=== PATIENT | female | born 1975 | race Caucasian/White ===

== ENCOUNTER 2022-08-20 15:15 | Outpatient (OUT) | payer OTHER, MEDICARE, SELFPAY ==
[2022-08-20 15:50] LABS: Bilirubin Urine NEGATIVE (NEGATIVE); Blood Urine NEGATIVE (NEGATIVE); Clarity Urine CLEAR (CLEAR); Color Urine LT. YELLOW (YELLOW); Glucose Urine UA 250 mg/dL (NEGATIVE); Ketones Urine NEGATIVE (NEGATIVE); Leukocyte Esterase Urine LARGE (NEGATIVE); Nitrite Urine POSITIVE (NEGATIVE); Protein Urine 100 mg/dL (NEG/TRACE); Urobilinogen Urine 0.2 EU/dL (0.2-1.0); pH Urine >=9.0 (5.0-9.0)
[2022-08-20 15:57] LABS: Bacteria Urine MODERATE #/HPF (NONE SEEN); Mucus Urine TRACE (NONE SEEN)
[2022-08-20 15:58] LABS: Cast Seen? NONE SEEN #/LPF (NONE SEEN); Crystals Seen? None Seen #/HPF (None Seen); Squamous Epithelial Cell Urine RARE #/LPF (NONE/RARE); Urine Culture Indicated ALREADY ORDERED
== END 2022-08-20 15:16 | disposition home or self-care (01) ==
LOC: LAB 15:20
PROVIDERS: PCP Family Medicine; Visit Provider Family Medicine
DX: N39.0 Urinary tract infection, site not specified (principal)
CPT/HCPCS: 81001; 87070; 87086; 87150; 87186

== ENCOUNTER 2022-11-07 11:53 | Outpatient (REF) | payer OTHER, MEDICARE, SELFPAY | END 2022-11-07 11:54 | disposition home or self-care (01) | LOC: LAB 11:53 | PROVIDERS: PCP Family Medicine; Visit Provider Family Medicine | DX: M75.00 Adhesive capsulitis of unspecified shoulder (principal) | CPT/HCPCS: 87070; 87150; 87186 ==

== ENCOUNTER 2022-12-10 11:08 | Outpatient (OUT) | payer OTHER, MEDICARE, SELFPAY ==
--- NOTE | 2022-12-10 11:13 | XR_ITS ---
[address] [address] Patient Name: JESSICA CRISTINA MRN: [id number] date: 1975 Sex: F Assigned Patient Location: [facility] Current Patient Location: [facility] Accession/Order Number: [id number] Exam Date: 12/10/2022 11:25 Report Date: 12/10/2022 15:04 At the request of: DINORAH GRUBBS Procedure: XR shoulder RT min 2V EXAM: XR shoulder RT min 2V HISTORY: Acute Pain Right Shoulder M25.511 COMPARISON: None. TECHNIQUE: 3 views FINDINGS: No acute fracture or dislocation. Mild degenerative changes of the acromioclavicular and glenohumeral joints. Unremarkable soft tissues. XR/XR shoulder RT min 2V IMPRESSION: Degenerative changes as above. Electronically authenticated by: MARY GODOY Date: 12/10/2022 15:04
== END 2022-12-10 11:09 | disposition home or self-care (01) ==
LOC: RAD 11:08
PROVIDERS: PCP Family Medicine; Visit Provider Orthopaedic Surgery
DX: M25.511 Pain in right shoulder (principal)
CPT/HCPCS: 73030

== ENCOUNTER 2023-02-10 13:05 | Emergency (ER) | payer OTHER, MEDICARE, SELFPAY ==
[2023-02-10] VITALS (15 sets, daily range): BP systolic 134–141; BP diastolic 89–97; PULSE 82–94; RESP 6–20; TEMP 36.6; O2SAT 96–99; BMI 33.3
--- OUTSIDE RECORDS SUMMARY | 2023-02-10 13:17 | XMS_ITS | CCD ---
Author Name Unknown Address [address] [facility] [facility] [address] [place] [address] Organization [facility] Care Team Providers Care Physician Vice President Name Role Phone Francesco Quinteros MD Primary Care Provider Yimi Nina Unavailable [phone] Bella Fraser PA-C Unavailable Unavailable Francesco Quinteros Primary Care Physician Charo Roblero Unavailable Unavailable Francesco Quinteros MD Primary Care Provider [phone] Yimi Nina Unavailable [phone] Bella Fraser PA-C Unavailable Unavailable Francesco Quinteros MD Primary Care Provider Yimi Nina Unavailable [phone] Bella Fraser PA-C Unavailable Unavailable Francesco Quinteros MD Primary Care Provider Yimi Nina Unavailable Bella Fraser PA-C Unavailable Unavailable MD Francesco Quinteros Primary Care Provider MD Yaakov Greenwood Attending Provider LILIA NIELSEN Admitting Unavailable LILIA NIELSEN Consulting Unavailable LILIA NIELSEN Attending Unavailable DR FRANCESCO LORENZANA Primary Care Unavailable ALDAIR Amaya, DR MAYA Admitting Unavailable ALDAIR Amaya, DR MAYA Primary Care Unavailable ALDAIR Amaya, DR MAYA Consulting Unavailable ALDAIR Amaya, DR MAYA Attending Unavailable TRAMAINE, DR DINORAH Tamayo Consulting Unavailable DIAB ., YUDI Consulting Unavailable DIAB ., YUDI Attending Unavailable ALDAIR Amaya, DR MAYA Primary Care Unavailable DIAB ., YUDI Admitting Unavailable LILIA NIELSEN Admitting Unavailable LILIA NIELSEN Consulting Unavailable LILIA NIELSEN Attending Unavailable ALDAIR ., DR MAYA Primary Care Unavailable HoyFrancesco M Primary Care Unavailable Cook, Yaakov P Attending Unavailable Cook, Yaakov P Admitting Unavailable Cook, Yaakov P Attending Unavailable Cook, Yaakov P Admitting Unavailable HoFrancesco rubio M Primary Care Unavailable Bella Fraser PA-C Unavailable FRANCESCO QUINTEROS M Primary Care Unavailable ONTANEDA, JOSE Referring Unavailable ONTANEDA JOSE Attending Unavailable HOY, FRANCESCO M Primary Care Unavailable BETHOUX, WAY Referring Unavailable BETHOUX, WAY Attending Unavailable HOFRANCESCO Rubio M Primary Care Unavailable BETHOUX, WAY Referring Unavailable BETHOUX, WAY Attending Unavailable HOFRANCESCO Rubio M Primary Care Unavailable LEDYARDLISADESIREE R Referring Unavailable BETHOUX, HAILE Attending Unavailable JACOBFRANCESCO Rubio M Primary Care Unavailable LEDDESIREE DIEHL R Referring Unavailable MARILIA SIU Attending Unavailable [place] gu[place] Attending Unavailable COOK, Yaakov P Attending Unavailable COOK, Yaakov Caicedo Attending Unavailable Candido PRINCE Attending Unavailable DESIREE ENRIQUEZ Attending Unavailable MD Remi Quintero Admitting Unavailable ZRemi barrow Attending Unavailable JacobyJorgeFrancesco Referring Unavailable Camilo Deras Attending Unavailable DO Camilo Deras Admitting Unavailabl e Francesco Quinteros Referring Unavailable Camilo Deras Admitting Unavailable Camilo Deras Attending Unavailable Francesco Quinteros Referring Unavailable COOK, Yaakov P Attending Unavailable COOK, Yaakov P Attending Unavailable COOK, Yaakov P Attending Unavailable TAYOMARILIA SKINNER Attending Unavailable TAYOMARILIA SKINNER Attending Unavailable COOK, Yaakov P Attending Unavailable COOK, Yaakov P Attending Unavailable COOK, Yaakov P Attending Unavailable COOKYaakov P Attending Unavailable MARILIA CR Attending Unavailable Candido PRINCE Attending Unavailable [place] gu[place] Attending Unavailable Axel Meredith Attending Unavailable Candido PRINCE Attending Unavailable Yaakov GREENWOOD Attending Unavailable Remi Quintero Admitting Unavailable Remi Quintero Attending Unavailable Remi Quintero Referring Unavailable MasoudAxel guillermo Attending Unavailable Allergies Allergy Classification Reported Allergen(s) Allergy Type Date of Onset Reaction(s) Facility (20 sources) Cabbage preparation; Translations: [CABBAGE] Drug Allergy 9 Vomiting, Vomitus (substance), Diarrhea (finding) [facility] Other [facility] (20 sources) GADOLINIUM-CONT AINING CONTRAST MEDIA; Translations: [GADOLINIUM-CON TAINING CONTRAST MEDIA] Propensity to adverse reactions to drug (disorder) 9 Anaphylaxis [facility] (20 sources) Contrast media; Translations: [Contrast Dye] Drug allergy throat swelling [facility] (20 sources) Amitriptyline; Translations: [AMITRIPTYLINE HCL] Drug Allergy 1 Other: See Comments, Rash [facility] (3 sources) Iodinated Contrast Media; Translations: [Iodinated Contrast Media] Allergy to substance 3 Anaphylaxis [facility] (1 source) Iodine (And Iodine Containting Drugs) Drug allergy (disorder) [facility] Medications Current Medications Medication Drug Class(es) Dates Sig (Normalized) Sig (Original) acetaminophen 325 mg / HYDROcodone bitartrate 5 mg oral tablet (1 source) Opioid Agonist Start: 07-02-2022 take 1 tablet by mouth every four to six hours Hydrocodone-Acet aminophen Active 1 TAB PO EVERY 4-6 HOURS 10 3 July 02, 2022 Azopt 0.01 Susp-Opth (20 sources) Start: 05-11-2017 take 1 drop(s) into the eye(s) four times daily Azopt 0.01 Susp-Opth 1 drop(s), OPTH, QID, right eye, Other (see comment) Start Date: 05/11/17 Status: Ordered bimatoprost 0.1 mg/ml ophthalmic solution (20 sources) Prostaglandin Analog Start: 05-11-2017 take 1 drop(s) into the eye(s) once daily in the evening Lumigan 0.01% ophthalmic solution 1 drop(s), OPTH, qPM, 5 mL, Refill(s) 0, right eye, Other (see comment) Start Date: 05/11/17 Status: Ordered Start: 05-11-2017 take 1 drop(s) into the eye(s) once daily in the evening Lumigan 0.01% ophthalmic solution 1 drop(s), OPTH, qPM, 5 mL, Refill(s) 0, right eye, Other (see comment) Start Date: 05/11/17 Status: Ordered bimatoprost (LUM IGAN OPHTHALMIC) Use in eyes daily at bedtime. 0 Active Comment on above: Use in eyes daily at bedtime. brimonidine tartrate 2 mg/ml / timolol 5 mg/ml ophthalmic solution (20 sources) alpha-Adrenergic Agonist, beta-Adrenergic Buffy Start: 05-11-2017 take 1 drop(s) into the eye(s) three times daily Combigan ophthalmic solution 1 drop(s), Eye-Right, TID, Other (see comment) Start Date: 05/11/17 Status: Ordered Start: 05-11-2017 take 1 drop(s) into the eye(s) three times daily Combigan ophthalmic solution 1 drop(s), Eye-Right, TID, Other (see comment) Start Date: 05/11/17 Status: Ordered brinzolamide 10 mg/ml ophthalmic suspension (5 sources) Carbonic Anhydrase Inhibitor Start: 05-11-2017 take 1 drop(s) into the eye(s) four times daily Azopt 0.01 Susp-Opth 1 drop(s), OPTH, QID, right eye, Other (see comment) Start Date: 05/11/17 Status: Ordered cephalexin 500 mg oral capsule (1 source) Cephalosporin Antibacterial Start: 07-02-2022 take 500 mg by mouth twice daily Cephalexin Active 500 MG PO Twice daily 10 July 02, 2022 12:00am clopidogrel 75 mg oral tablet (20 sources) [id number] Platelet Inhibitor Start: 04-19-2021 take 1 tablet by mouth once daily clopidogrel 75 mg Tab 75 mg = 1 tab(s), Oral, Daily, Refills(s) 0 Start Date: 06/01/21 Status: Ordered Comment on above: clopidogrel 75 mg Ta b Refills(s) 0 Start Date: 06/01/21 Status: Ordered 24 hr desvenlafaxine succinate 100 mg extended release oral tablet (20 sources) Serotonin and Norepinephrine Reuptake Inhibitor Start: 05-11-2017 take 1 tablet by mouth once daily Pristiq 100 mg Tab-ER 100 mg = 1 tab(s), Oral, Daily, Depression Start Date: 05/11/17 Status: Ordered Start: 05-11-2017 desvenlafaxine 100 mg Tb24 Take 100 mg by mouth. 0 05/11/2017 Active take 1 tablet by kera th once daily, then take 1 tablet by mouth every twenty-four hours desvenlafaxine ER (PRISTIQ) 50 mg 24 hr tablet Take 50 mg by mouth once daily. 0 Active Comment on above: Take 50 mg by mouth once daily. Take 100 mg by mouth . diclofenac sodium 75 mg delayed release oral tablet (20 sources) Nonsteroidal Anti-inflammatory Drug Start: 06-01-2021 diclofenac sodium 75 mg Oral EC Tab Refills(s) 0 Start Date: 06/01/21 Status: Ordered Start: 04-19-2021 take 1 tablet by kera th twice daily diclofenac sodium 75 mg Oral EC Tab 75 mg = 1 tab(s), Oral, BID, Refills(s) 0 Start Date: 06/01/21 Status: Ordered Comment on above: Take by mouth. dicyclomine hydrochloride 20 mg oral tablet (20 sources) Anticholinergic Start: 01-18-20 take 1 tablet by mouth three times daily dicyclomine 20 mg Tab 20 mg = 1 tab(s), Oral, TID, Refills(s) 0 Start Date: 01/17/22 Status: Ordered famotidine 40 mg oral tablet (20 sources) Histamine-2 Receptor Antagonist Start: 08-13-19 take 1 tablet by mouth once daily at bedtime Pepcid 40 mg Tab 40 mg = 1 tab(s), Oral, Once a day (at bedtime), Refills(s) 0, Control of stomach acid Start Date: 08/13/19 Status: Ordered Comment on above: Take 40 mg by mouth. furosemide 20 mg oral tablet (20 sources) Loop Diuretic Start: 04-20-19 take 40 mg by mouth once daily in the morning Furosemide Active 40 MG PO Every morning April 19, 2021 1:00am Start: 08-13-2019 take 1 tablet by kera th once daily Lasix 20 mg Tab 20 mg = 1 tab(s), Oral, Daily, Refills(s) 0, diuretic/water pill Start Date: 08/13/19 Status: Ordered Comment on above: Take by mouth. hyoscyamine sulfate 0.125 mg disintegrating oral tablet (20 sources) Start: 04-19-2021 take 0.125 mg by mouth once daily Hyoscyamine Sulfate Active 0.125 MG PO Daily April 19, 2021 1:00am Start: 12-15-2020 take 1 tablet under the tongue four times daily as needed hyoscyamine Sublingual 0.25 mg = 2 tab(s), SubLingual, QID, PRN Urinary discomfort, Refills(s) 0 Start Date: 12/15/20 Status: Ordered Comment on above: Dissolve 0.125 mg un annabel the tongue as needed. hyoscyamine Sublingual (20 sources) Start: take 1 tablet under the tongue four times daily as needed hyoscyamine Sublingual 0.25 mg = 2 tab(s), SubLingual, QID, PRN Urinary discomfort, Refills(s) 0 Start Date: 12/15/20 Status: Ordered losartan potassium 25 mg oral tablet (20 sources) Angiotensin 2 Receptor Buffy Start: 9 take 25 mg by mouth twice daily losartan 25 mg, Oral, BID, Refills(s) 0, High blood pressure Start Date: 09/11/18 Status: Ordered Start: 09-11-2018 take 50 mg by mouth once daily losartan 50 mg, Oral, Daily, Refills(s) 0, High blood pressure Start Date: 09/11/18 Status: Ordered Start: 09-11-2018 losartan (COZA AR) 50 mg tablet Take 25 mg by mouth. 0 09/11/2018 Active losartan (COZAAR ) 25 mg tablet Take 25 mg by mouth once daily. takes twice daily. 0 Active Comment on above: Take 25 mg by mouth once daily. Take 50 mg by mouth. Take 25 mg by mouth. Take 25 mg by mouth once daily. takes twice daily. meclizine hydrochloride 25 mg oral tablet (20 sources) Antiemetic Start: 022 take 1 tablet by mouth every four hours as needed for dizziness meclizine 25 mg Tab 25 mg = 1 tab(s), Oral, q4hr, PRN Dizziness, Refills(s) 0 Start Date: 01/17/22 Status: Ordered Comment on above: Take 1 tablet by kera th every 4 hours as needed (for dizziness.). metoclopramide 10 mg oral tablet (20 sources) Dopamine-2 Receptor Antagonist Start: metoclopramide 10 mg Tab 10 mg = 1 tab(s), Oral, QIDACHS, Refills(s) 0, Other (see comment) Start Date: 08/13/19 Status: Ordered Comment on above: Take 1 tablet by kera th three times daily before meals. Misc Medication (8 sources) Start: Misc Medication 75 mg, Oral Start Date: 11/10/20 Status: Ordered naproxen 500 mg oral tablet (13 sources) Nonsteroidal Anti-inflammatory Drug Start: take 1 tablet by mouth twice daily at mealtime naproxen 500 mg Tab 500 mg = 1 tab(s), Oral, BID, with food, # 60 tab(s), Refills(s) 0 Start Date: 02/26/20 Status: Ordered Comment on above: Take 500 mg by mouth as needed. ondansetron 4 mg oral tablet (20 sources) Serotonin-3 Receptor Antagonist Start: Zofran 4 mg, Oral, PRN as needed for nausea/vomiting, Refills(s) 0, Nausea Start Date: 02/12/18 Status: Ordered Comment on above: Take 4 mg by mouth a s needed. pantoprazole 40 mg delayed release oral tablet (20 sources) Proton Pump Inhibitor Start: take 40 mg by mouth twice daily Pantoprazole Active 40 MG PO Twice daily April 19, 2021 1:00am Start: 01-24-2017 take 40 mg by mouth twice amparo y Protonix 40 mg, Oral, BID, Refills(s) 0, Control of stomach acid Start Date: 01/24/17 Status: Ordered Start: 01-24-2017 take 80 mg by mouth once daily Protonix 80 mg, Oral, Daily, Refills(s) 0, Control of stomach acid Start Date: 01/24/17 Status: Ordered Start: 04-17-2016 take 1 tablet by kera th once daily pantoprazole DR (PROTONIX) 40 mg tablet Take 1 tablet by mouth once daily. 0 04/17/2016 Active Comment on above: Take 1 tablet by kera once daily. potassium citrate 10 meq extended release oral tablet (20 sources) Start: 08-19-2022 potassium CITRATE 10 mEq ER Tab 20 mEq, 2 tab(s), Oral, BID, 120 tab(s), Refill(s) 11, [id number], 164, cm, 06/11/22 9:22:00 EDT, Height/Length Dosing, 91, kg, 06/11/22 9:22:00 EDT, Weight Dosing Start Date: 08/19/22 Status: Ordered Start: 04-18-2022 potassium CITR ATE 10 mEq ER Tab 20 mEq, 2 tab(s), Oral, BID, 120 tab(s), Refill(s) 3, [id number], 165, cm, 01/24/22 12:22:00 EST, Height/Length Dosing, 90, kg, 10/03/21 10:20:00 EDT, Weight Dosing Start Date: 04/18/22 Status: Ordered Start: 01-04-2022 potassium CITR ATE 10 mEq ER Tab 20 mEq, 2 tab(s), Oral, BID, 120 tab(s), Refill(s) 3, [id number], 165, cm, 10/03/21 10:20:00 EDT, Height/Length Dosing, 90, kg, 10/03/21 10:20:00 EDT, Weight Dosing Start Date: 01/04/22 Status: Ordered Start: 04-19-2021 take 20 mEq by mouth twice daily Potassium Citrate Active 20 MEQ PO Twice daily April 19, 2021 1:00am Start: 01-10-2021 potassium CITR ATE 10 mEq ER Tab 10 mEq, 1 tab(s), Oral, BID, 120 tab(s), Refill(s) 11, [id number], 165, cm, 12/15/20 11:39:00 EDT, Height/Length Dosing, 99.8, kg, 12/15/20 11:39:00 EDT, Weight Dosing Start Date: 01/10/21 Status: Ordered Start: 01-10-2021 potassium CITR ATE 10 mEq ER Tab 10 mEq, 1 tab(s), Oral, BID, 120 tab(s), Refill(s) 11, [id number], 165, cm, 12/15/20 11:39:00 EDT, Height/Length Dosing, 99.8, kg, 12/15/20 11:39:00 EDT, Weight Dosing Start Date: 01/10/21 Status: Ordered prednisoLONE (20 sources) Corticosteroid Start: 06-13-2017 take 1 drop(s) into the eye(s) four times daily Prednisol 1% ophthalmic solution 1 drop(s), Eye-Right, QID, Refill(s) 0, Other (see comment) Start Date: 06/13/17 Status: Ordered pregabalin 200 mg oral capsule (20 sources) Start: 05-30-2022 take 1 capsule by mouth three times daily pregabalin 200 mg Cap 200 mg = 1 cap(s), Oral, TID, # 270 cap(s), Refills(s) 1, Pharmacy: [id number], 164, cm, 06/11/22 9:22:00 EDT, Height/Length Dosing, 91, kg, 06/11/22 9:22:00 EDT, Weight Dosing Start Date: 12/12/22 Status: Ordered Start: 03-13-2022 End: 06-11-2022 take 1 capsule by mouth three times daily pregabalin 150 mg Cap 150 mg = 1 cap(s), Oral, TID, X 90 day(s), # 270 cap(s), Refills(s) 0, Pharmacy: [id number], 165, cm, 01/24/22 12:22:00 EST, Height/Length Dosing, 90, kg, 10/03/21 10:20:00 EDT, Weight Dosing Start Date: 03/13/22 Stop Date: 06/11/22 Status: Ordered Start: 07-17-2017 End: 03-21-2022 take 1 capsule by mouth four times daily pregabalin (LYRICA) 150 mg capsule Take 1 capsule by mouth four times daily for 180 days. 0 09/22/2021 Active End: 09-22-2021 take 1 capsule by mouth three times daily Pregabalin (LYRICA) 200 mg capsule Take 200 mg by mouth three times daily. 0 09/22/2021 Discontinued (Discontinued by another Health Care Provider) Comment on above: Take 200 mg by mouth three times daily. Take 150 mg by mouth . Take [address] [facility] four times daily for 180 days. QUEtiapine 100 mg oral tablet (20 sources) Atypical Antipsychotic Start: 06-14-19 18 take 100 mg by mouth once daily at bedtime Seroquel 100 mg, Oral, Once a day (at bedtime), Refills(s) 0, Depression Start Date: 06/13/17 Status: Ordered Comment on above: TAKE 1 TABLET BY KERA TH EVERYDAY AT BEDTIME tiZANidine 4 mg oral tablet (8 sources) Central alpha-2 Adrenergic Agonist Start: 08-13-19 take 1 tablet by mouth at bedtime tiZANidine 4 mg Tab 4 mg = 1 tab(s), Oral, Bedtime, Refills(s) 0, Sleep Start Date: 08/13/19 Status: Ordered traMADol hydrochloride 50 mg oral tablet (20 sources) Opioid Agonist Start: 01-25-20 take 1 tablet by mouth twice daily as needed for pain Ultram 50 mg Tab 50 mg = 1 tab(s), Oral, BID, PRN as needed for pain, # 30 tab(s), Refills(s) 0, Pharmacy: [facility]/pharmacy #[id number], 165, cm, 05/30/22 14:49:00 EDT, Height/Length Dosing, 90, kg, 10/03/21 10:20:00 EDT, Weight Dosing Start Date: 05/30/22 Status: Ordered Comment on above: Take 1 tablet by kera th as needed. traZODone hydrochloride 50 mg oral tablet (8 sources) Serotonin Reuptake Inhibitor Start: 08-13-19 take 1 tablet by mouth once daily traZODONE 50 mg Tab 50 mg = 1 tab(s), Oral, Daily, Refills(s) 0, Pain Start Date: 08/13/19 Status: Ordered Vitamin C 250 mg oral tablet, chewable (6 sources) Start: 02-18-20 take 1 tablet by mouth once daily Vitamin C 250 mg oral tablet, chewable 250 mg = 1 tab(s), Chewed, Daily, Prophylaxis Start Date: 02/18/20 Status: Ordered Vitamin C 500 mg oral tablet, chewable (6 sources) Start: 02-25-19 take 1 tablet by mouth once daily Vitamin C 500 mg oral tablet, chewable 500 mg = 1 tab(s), Chewed, Daily, # 30 tab(s), Refills(s) 0 Start Date: 02/26/20 Status: Ordered Completed/Discontinued Medications Medication Drug Class(es) Dates Sig (Normalized) Sig (Original) allopurinol 100 mg oral tablet (6 sources) Xanthine Oxidase Inhibitor Start: 12-20-2022 take 1 tablet by mouth once allopurinol (ZYLOPRIM) 100 mg tablet Take 1 tablet by mouth every afternoon. 0 01/26/2023 Active Start: 06-19-2022 take 100 mg by mouth once amparo y Allopurinol Active 100 MG PO every day at noon June 19, 2022 12:00am Comment on above: Take 1 tablet by kera th every afternoon. amitriptyline hydrochloride 50 mg oral tablet (5 sources) Tricyclic Antidepressant End: 09-23-19 take 1 tablet by mouth once daily at bedtime amitriptyline (ELAVIL) 50 mg tablet Take 50 mg by mouth daily at bedtime. 0 09/22/2021 Discontinued (Discontinued by another Health Care Provider) Comment on above: Take 50 mg by mouth daily at bedtime. ascorbic acid 500 mg oral tablet (20 sources) Vitamin C Start: 04-20-19 take 1 tablet by mouth once daily ascorbic acid, vitamin C, (VITAMIN C) 500 mg tablet Take 1 tablet by mouth once daily. 0 09/27/2021 Active Start: 02-26-2020 take 1 tablet by kera th once daily Vitamin C 500 mg oral tablet, chewable 500 mg = 1 tab(s), Chewed, Daily, # 30 tab(s), Refills(s) 0 Start Date: 02/26/20 Status: Ordered Start: 02-18-2020 take 1 tablet by kera th once daily Vitamin C 250 mg oral tablet, chewable 250 mg = 1 tab(s), Chewed, Daily, Prophylaxis Start Date: 02/18/20 Status: Ordered Comment on above: Take 1 tablet by kera th once daily. baclofen 20 mg oral tablet (20 sources) gamma-Aminobutyric Acid-ergic Agonist Start: 12-07-2021 End: 03-07-2022 take 1 tablet by mouth three times daily as needed for muscle spasms baclofen 10 mg Tab 10 mg = 1 tab(s), Oral, TID, PRN Spasm, X 90 day(s), # 270 tab(s), Refills(s) 0, Pharmacy: [facility]/pharmacy #[id number], 165, cm, 10/03/21 10:20:00 EDT, Height/Length Dosing, 90, kg, 10/03/21 10:20:00 EDT, Weight Dosing Start Date: 12/07/21 Stop Date: 03/07/22 Status: Ordered Start: 09-22-2021 End: 01-30-2023 take 1 tablet by mouth twice daily baclofen 20 mg tablet Take 1 tablet by mouth two times a day. 60 tablet 5 01/30/2023 Active Start: 06-01-2021 End: 11-28-2021 take 1 tablet by mouth three times daily as needed for muscle spasms baclofen 20 mg Tab 20 mg = 1 tab(s), Oral, TID, PRN Spasm, X 90 day(s), # 270 tab(s), Refills(s) 1, Pharmacy: [facility]/pharmacy #[id number], 165, cm, 06/01/21 9:17:00 EDT, Height/Length Dosing, 90.7, kg, 06/01/21 9:17:00 EDT, Weight Dosing Start Date: 06/01/21 Stop Date: 11/28/21 Status: Ordered Comment on above: Take by mouth. Take 1 tablet by kera th twice daily. Take 1 tablet by kera th two times a day. benoxinate hydrochloride 4 mg/ml / fluorescein sodium 2.5 mg/ml ophthalmic solution (1 source) Diagnostic Dye Start: 12-05-2021 End: 12-05-2021 fluorescein-benoxinate 0.25-0.4 % 1 Drop (FLURESS) onabotulinumtoxina 100 unt injection (3 sources) Acetylcholine Release Inhibitor Start: 01-30-2023 End: 01-30-2023 onabotulinum toxin type A 400 Units injection (BOTOX) Start: 08-03-2022 End: 08-03-2022 onabotulinum toxin type A 30 0 Units injection (BOTOX) Start: 03-28-2022 End: 03-29-2022 onabotulinum toxin type A 30 0 Units injection (BOTOX) dexamethasone 6 mg oral tablet (2 sources) Corticosteroid Start: 07-21-2021 End: 09-21-2021 take 1 tablet by mouth once daily dexAMETHasone (DECADRON) 6 mg tablet Take 6 mg by mouth once daily. 0 07/21/2021 09/21/2021 Discontinued (Course of therapy completed) Comment on above: Take 6 mg by mouth o nce daily. difluprednate 0.5 mg/ml ophthalmic suspension (5 sources) take 0.05 drop(s) into the eye(s) twice daily Difluprednate (DUREZOL) 0.05 % drop Use in both eyes twice daily. 0 Active Comment on above: Use in both eyes twi ce daily. docusate sodium 100 mg oral capsule (20 sources) Start: 02-26-2020 docusate sodium (COLACE) 100 mg capsule Take by mouth. 0 02/26/2020 Active Comment on above: Take by mouth. eletriptan 40 mg oral tablet (5 sources) Serotonin-1b and Serotonin-1d Receptor Agonist take 1 tablet by mouth every two hours as needed eletriptan (RELPAX) 40 mg tablet Take 40 mg by mouth as needed. may repeat in 2 hours if necessary 0 Active Comment on above: Take 40 mg by mouth as needed. may repeat in 2 hours if necessary 24 hr fesoterodine fumarate 4 mg extended release oral tablet (20 sources) Start: 04-19-2021 End: 06-19-2022 take 1 tablet by mouth once daily fesoterodine (TOVIAZ) 4 mg Tb24 extended release tablet Take 1 tablet by mouth once daily. 0 09/27/2021 Active Comment on above: Take 1 tablet by kera once daily. 14 actuat fluticasone furoate 0.1 mg/actuat / vilanterol 0.025 mg/actuat dry powder inhaler (20 sources) Corticosteroid, beta2-Adrenergic Agonist Start: 08-11-2021 take 1 puff(s) by mouth once daily fluticasone-vilant brent (BREO ELLIPTA) 100-25 mcg/dose inhaler INHALE 1 PUFF BY MOUTH ONCE DAILY 0 08/11/2021 Active Start: 04-19-2021 Fluticasone Fu roate-Vilanterol (Breo Ellipta) 100-25 mcg/dose Blister With Device Active 1 INH INHALATION Every morning April 19, 2021 1:00am Start: 08-13-2019 take 1 puff(s) by in halation once daily Breo Ellipta 100 mcg-25 mcg inhalation powder 1 puff(s), Inhalation, Daily, Refill(s) 2, 30 dose unit, Shortness of breath or wheezing Start Date: 08/13/19 Status: Ordered Comment on above: INHALE 1 PUFF BY KERA ONCE DAILY Lactulose (5 sources) Osmotic Laxative take 200 g rectal route three times daily lactulose (CONSTULOSE) 200 g by RECTAL route three times daily. 0 Active Comment on above: 200 g by RECTAL rout e three times daily. linaclotide 0.29 mg oral capsule (20 sources) Guanylate Cyclase-C Agonist Start: 2 take 1 capsule by mouth once daily, then take 6 capsules by mouth in the morning linaCLOtide (LINZESS) 290 mcg capsule Take 1 capsule by mouth DAILY (6 AM). 0 09/27/2021 Active Start: 08-13-2019 take 1 capsule by mo [facility] once daily Linzess 290 mcg oral capsule 290 microgram = 1 cap(s), Oral, Daily, Refills(s) 0, Constipation Start Date: 08/13/19 Status: Ordered take 1 capsule by mo [facility] once daily linaclotide (LINZESS) 145 mcg cap Take by mouth once daily. 0 Active Comment on above: Take by mouth once d aily. Take 1 capsule by mo [facility] DAILY (6 AM). loteprednol etabonate 0.005 mg/mg ophthalmic ointment (5 sources) loteprednol etab lucy (LOTEMAX) 0.5 % eye ointment daily at bedtime. 0 Active Comment on above: daily at bedtime. methocarbamol 500 mg oral tablet (20 sources) Muscle Relaxant Start: 09-10-2022 methocarbamol (ROBAXIN) 500 mg tablet TAKE 1 TABLET BY MOUTH IN THE MORNING AND 2 TABLETS AT NIGHT 90 tablet 5 09/10/2022 Active Start: 09-22-2021 End: 03-28-2022 Methocarbamol Active 500 MG PO Twice daily June 19, 2022 12:00am 1 tab in am and 2 tabs at night Comment on above: Take 1 tablet by kera th at bedtime x 4 days, then increase to 2 tablets by mouth at bedtime x 4 days, then increase to 1 tablet in the morning and 2 tablets by mouth at bedtime OR 1 tablet by mouth three times a day as tolerated. Take one in the morn ing and two at night. TAKE 1 TABLET BY KERA TH IN THE MORNING AND 2 TABLETS AT NIGHT OXcarbazepine 300 mg oral tablet (20 sources) Anti-epileptic Agent Start: take 600 mg by mouth once daily Oxcarbazepine Active 600 MG PO every day at noon April 19, 2021 1:00am Start: 12-15-2020 take 2 tablets by mo [facility] at bedtime oxcarbazepine 300 mg Tab 600 mg = 2 tab(s), Oral, Bedtime Start Date: 12/15/20 Status: Ordered Start: 12-15-2020 take 1-0.5 tablets b y mouth once daily OXcarbazepine (TRILEPTAL) 300 mg tablet TAKE 1 AND 1/2 - 2 TABLETS BY MOUTH EVERYDAY 0 07/14/2021 Active Comment on above: TAKE 1 AND 1/2 - 2 T ABLETS BY MOUTH EVERYDAY 24 hr oxybutynin chloride 5 mg extended release oral tablet (6 sources) Cholinergic Muscarinic Antagonist Start: 01-02-2023 take 1 tablet by mouth every hour oxybutynin XL (DITROPAN XL) 5 mg 24 hr tablet Take 1 tablet by mouth every afternoon. 0 01/02/2023 Active Start: 12-20-2022 take 5 mg by mouth once daily oxybutynin 5 mg, Oral, Daily, Refills(s) 0 Start Date: 12/20/22 Status: Ordered Start: 06-19-2022 take 5 mg by mouth o nce daily at bedtime Oxybutynin Chloride Active 5 MG PO Daily at bedtime June 19, 2022 12:00am Comment on above: Take 1 tablet by kera every afternoon. phenylephrine hydrochloride 25 mg/ml ophthalmic solution (1 source) alpha-1 Adrenergic Agonist Start: 12-06-19 End: 12-06-19 PHENYLephrine 2.5 % 1 Drop (AK-DILATE, MATTHEW-SYNEPHRINE) Polyethylene Glycols (5 sources) polyethylene gly col 3350 (PURELAX ORAL) Take by mouth once daily. 0 Active Comment on above: Take by mouth once d aily. potassium chloride 10 meq extended release oral tablet (20 sources) Start: 09-28-19 take 2 tablets by mouth twice daily potassium chloride (K-TAB) 10 mEq tablet Take 2 tablets by mouth twice daily. 0 09/27/2021 Active Start: 08-13-2019 Klor-Con 20 mE q, Oral, BID, Refills(s) 0, Prophylaxis Start Date: 08/13/19 Status: Ordered Comment on above: Take 2 tablets by mo [facility] twice daily. monobasic potassium phosphate 0.0408 meq/ml oral solution (10 sources) Start: 10-30-2022 take 1 tablet by mouth every twelve hours K-PHOS ORIGINAL 500 mg tablet Take 1 tablet by mouth every 12 hours. 0 10/30/2022 Active Start: 09-18-2022 take 1 tablet by kera twice daily K-Phos Original 500 mg oral tablet 1 tab, Oral, BID, # 60 tab(s), Refills(s) 11, Pharmacy: [facility]/pharmacy #[id number], 164, cm, 06/11/22 9:22:00 EDT, Height/Length Dosing, 91, kg, 06/11/22 9:22:00 EDT, Weight Dosing Start Date: 09/18/22 Status: Ordered Comment on above: Take 1 tablet by [facility] every 12 hours. proparacaine hydrochloride 5 mg/ml ophthalmic solution (1 source) Local Anesthetic Start: End: proparacaine 0.5 % 1 Drop (ALCAINE) raNITIdine 300 mg oral capsule (5 sources) Histamine-2 Receptor Antagonist take 1 capsule by mouth twice daily Ranitidine HCl 300 mg capsule Take 300 mg by mouth twice daily. 0 Active Comment on above: Take 300 mg by mouth twice daily. rimegepant 75 mg disintegrating oral tablet (20 sources) Start: End: take 1 tablet by mouth once daily as needed rimegepant (NURTEC ODT) 75 mg disintegrating tablet Take 1 tablet by mouth once daily as needed. 32 tablet 0 10/13/2021 Active Comment on above: Take by mouth. Take 1 tablet by kera once daily as needed. SUMAtriptan 100 mg oral tablet (20 sources) Serotonin-1b and Serotonin-1d Receptor Agonist Start: End: take 100 mg by mouth once Sumatriptan Succinate Discontinued 100 MG PO Once April 19, 2021 1:00am June 19, 2022 12:16pm Comment on above: Take 100 mg by mouth as needed. tropicamide 10 mg/ml ophthalmic solution (2 sources) Anticholinergic Start: End: tropicamide 1 % 1 Drop (MYDRIACYL) Start: 10-20-2021 End: 10-20-2021 tropicamide 1 % 1 Drop (MYDR IACYL) Problems Active Problems Problem Classification Problem Date Documented Da te Episodic/Chronic Acute cerebrovascular disease (20 sources) Cerebrovascular accident 11-10-2020 Chronic Administrative/social admission (3 sources) Other reduced mobility; Translations: [Other specified conditions influencing health status] Episodic Anxiety disorders (20 sources) Anxiety; Translations: [Anxiety disorder, unspecified] Onset: 3 06-13-2017 Chronic Blindness and vision defects (20 sources) Legal blindness; Translations: [Visual impairment] Onset: 3 08-13-2019 Chronic Cataract (20 sources) Nuclear sclerosis 01-17-2022 Chronic Complication of device; implant or graft (5 sources) Unspecified complication of genitourinary prosthetic device, implant and graft, initial encounter; Translations: [Other mechanical complication of indwelling urethral catheter, initial encounter] Onset: 3 Episodic Diseases of mouth; excluding dental (1 source) Recurrent ulcer of mouth; Translations: [Other lesions of oral mucosa] Episodic Esophageal disorders (20 sources) Gastroesophageal reflux disease; Translations: [Gastro-esophageal reflux disease without esophagitis] Onset: 3 05-11-2017 Chronic Essential hypertension (20 sources) Hypertensive disorder; Translations: [Essential (primary) hypertension] Onset: 3 07-17-2017 Chronic Fever of unknown origin (3 sources) Fever, unspecified; Translations: [FEVER UNSPECIFIED] Onset: 3 Episodic Fluid and electrolyte disorders (20 sources) Dehydration 02-18-2020 Episodic Genitourinary symptoms and ill-defined conditions (20 sources) Urinary catheter in situ; Translations: [Suprapubic urinary catheter in situ] 08-14-2019 Chronic Genitourinary symptoms and ill-defined conditions (20 sources) Retention of urine; Translations: [Retention of urine, unspecified] Onset: 2 05-19-2019 Episodic Glaucoma (20 sources) Uveitic glaucoma of right eye; Translations: [Glaucoma secondary to eye inflammation, right eye, mild stage] Onset: 8 04-02-2017 Chronic Immunity disorders (2 sources) Sarcoidosis; Translations: [Sarcoidosis, unspecified] Chronic Inflammation; infection of eye (except that caused by tuberculosis or sexually transmitteddisease) (1 source) Disorder of optic nerve; Translations: [Unspecified optic neuritis] Chronic Inflammation; infection of eye (except that caused by tuberculosis or sexually transmitteddisease) (20 sources) Iritis; Translations: [Unspecified iridocyclitis] Onset: 7 03-22-2016 Episodic Intestinal obstruction without hernia (20 sources) Pseudo-obstruction of colon 01-17-2022 Episodic Lymphadenitis (2 sources) Localized enlarged lymph nodes; Translations: [Localized enlarged lymph nodes] Episodic Mood disorders (20 sources) Depressive disorder 08-14-2019 Chronic Mood disorders (1 source) Mood disorders; Translations: [DEPRESSION UNSPECIFIED] Onset: 3 Other aftercare (1 source) Other correction (current) drug therapy; Translations: [OTH ASSISTED CURRENT DRUG THERAPY] Onset: 3 Episodic Other aftercare (1 source) terminal operations manager (current) use of aspirin; Translations: [ASSISTED CURRENT USE OF ASPIRIN] Onset: 3 Episodic Other connective tissue disease (20 sources) H/O: musculoskeletal disease 06-29-2014 Episodic Other connective tissue disease (1 source) Diastasis of muscle; Translations: [Separation of muscle (nontraumatic), other site] Onset: 2 Episodic Other connective tissue disease (20 sources) Diastasis recti 01-18-2022 Episodic Other diseases of bladder and urethra (20 sources) Paralysis of bladder 02-10-2020 Chronic Other diseases of bladder and urethra (7 sources) Neurogenic dysfunction of the urinary bladder; Translations: [Neuromuscular dysfunction of bladder, unspecified] Onset: 3 Chronic Other diseases of bladder and urethra (1 source) Neuromuscular dysfunction of bladder, unspecified; Translations: [Neuromuscular dysfunction of bladder, unspecified] Onset: 3 Chronic Other disorders of stomach and duodenum (20 sources) Gastroparesis syndrome 09-11-2018 Episodic Other endocrine disorders (20 sources) Reactive hypoglycemia; Translations: [Other hypoglycemia] 12-20-2015 Chronic Other endocrine disorders (20 sources) Hypoglycemia Onset: 8 02-18-2020 Chronic Other gastrointestinal disorders (1 source) Constipation, unspecified; Translations: [Constipation, unspecified] Onset: 9 Episodic Other gastrointestinal disorders (2 sources) Dysphagia; Translations: [Dysphagia, unspecified] Episodic Other lower respiratory disease (20 sources) Interstitial lung disease; Translations: [Interstitial pulmonary disease, unspecified] Chronic Other lower respiratory disease (2 sources) Dyspnea; Translations: [Shortness of breath] Episodic Other nervous system disorders (20 sources) Complex regional pain syndrome of lower limb 05-19-2019 Chronic Comment on above: L LE Other nervous system disorders (20 sources) Complex regional pain syndrome 01-17-2022 Chronic Other nervous system disorders (1 source) Complex regional pain syndrome I of lower limb, bilateral; Translations: [COMPLX RGN PAIN SYND I LOW LIMB BEHZAD] Onset: 3 Chronic Other nervous system disorders (20 sources) H/O: migraine 05-11-2017 Episodic Other nervous system disorders (20 sources) Transverse myelopathy syndrome; Translations: [Acute transverse myelitis in demyelinating disease of central nervous system] Episodic Other nervous system disorders (5 sources) Acute transverse myelitis; Translations: [Acute transverse myelitis in demyelinating disease of central nervous system] Onset: 3 Episodic Other non-traumatic joint disorders (1 source) Chronic pain of right upper limb; Translations: [Pain in right shoulder] Episodic Other nutritional; endocrine; and metabolic disorders (14 sources) Obese class I; Translations: [Obesity, unspecified] Onset: 2 11-28-2021 Chronic Ovarian cyst (20 sources) Cyst of ovary 01-17-2022 Episodic Paralysis (20 sources) Right hemiparesis; Translations: [Hemiplegia, unspecified affecting right dominant side] Onset: 1 Chronic Residual codes; unclassified (20 sources) Hypersomnia 01-17-2022 Chronic Residual codes; unclassified (20 sources) Body fluid retention 08-14-2019 Episodic Residual codes; unclassified (20 sources) Poor short-term memory 01-17-2022 Episodic Residual codes; unclassified (1 source) Acquired absence of both cervix and uterus; Translations: [ACQUIRED ABSENCE BOTH CERVIX AND UTERUS] Onset: 3 Episodic Skin and subcutaneous tissue infections (1 source) Cellulitis of abdominal wall; Translations: [CELLULITIS OF ABDOMINAL WALL] Onset: 3 Episodic Spondylosis; intervertebral disc disorders; other back problems (20 sources) Degeneration of lumbosacral intervertebral disc; Translations: [Other intervertebral disc degeneration, lumbosacral region] Onset: 6 12-20-2015 Chronic Sprains and strains (20 sources) Rupture of anterior cruciate ligament 08-13-2019 Episodic Unclassified (20 sources) Postprocedural state finding 08-14-2019 Unclassified (20 sources) Sensorineural hearing loss of left ear with normal hearing on right side 01-17-2022 Unclassified (1 source) Encounter for preprocedural laboratory examination; Translations: [Encounter for preprocedural laboratory examination] Onset: 3 Past or Other Problems Problem Classification Problem Date Documented Date Episodic/Chronic Abdominal hernia (1 source) Umbilical hernia without obstruction or gangrene; Translations: [UMBILICAL HERNIA W/O OBST/GANGRENE] Onset: 01-08-2022 Episodic Abdominal pain (5 sources) Generalized abdominal pain; Translations: [Epigastric pain] Onset: 03-28-2018 Episodic Other nervous system disorders (20 sources) Abnormal gait; Translations: [Unspecified abnormalities of gait and mobility] Onset: 10-15-2020 Episodic Spondylosis; intervertebral disc disorders; other back problems (20 sources) Pain in right sacroiliac joint; Translations: [Sacrococcygeal disorders, not elsewhere classified] Onset: 12-20-2015 12-20-2015 Episodic Unclassified (20 sources) Finding of sensation of abdomen 02-10-2020 Results Test Name Value Interpretation Reference Range Facility Consent for Procedure/Surger yon 02-07-2023 Consent for Procedure/Surgery [id number]#1.00TIFF [facility] Consent for Treatmenton 01-19 Consent for Treatment [id number]#1.00TIFF [facility] Consultation Noteon 02-08-20 Consultation Note Patient: YANIRA GUTIERREZ Age: 47 years Sex: Female : 1975 Associated Diagnoses: None Author: Braeden LLOYD Camilo HyattMonique Chief Complaint 02/07/2023 8:26 EST Right shoulder pain History of Present Illness Patient is presenting with a past history of multiple sclerosis, right shoulder pain, right shoulder contracture, trochanteric bursitis. She is presenting today for right shoulder intra-articular injection. She would also like to discuss continuation of Botox for her right shoulder and upper extremity contracture. She had last received this at [facility] on 01/30/2023. She would prefer to come here if possible due to ease of access and proximity to her residence. We discussed that this would be very reasonable to do and we can continue this for her. We also discussed continuation of Lyrica 200 mg 3 times daily which she is taking and is very effective for her. Her right shoulder is a 5/10 in severity when it is exacerbated and can be a 2/10 at its best. This is causing significant pain for her and intra-articular shoulder injection would be very warranted,, we will perform this today. REID Score: 50% PHQ-2: 5 Patient denies any symptoms of progressively worsening upper/lower extremity weakness, progressively worsening gait abnormality, new onset bowel/bladder incontinence/ urinary retention, or saddle anesthesia. No new or worsening symptoms of fever, chills, night sweats. Health Status Allergies: Allergic Reactions (All) Severity Not Documented Contrast Dye- Throat swelling. Nonallergic Reactions (All) Severity Not Documented Cabbage- Diarrhea and vomit. Canceled/Inactive Reactions (All) No Known Allergies, Allergies (2) Active Reaction cabbage Diarrhea Contrast Dye throat swelling Current medications: Home Medications (22) Active allopurinol 100 mg, Oral, Daily Azopt 0.01 Susp-Opth 1 drop(s), OPTH, QID Breo Ellipta 100 mcg-25 mcg inhalation powder 1 puff(s), Inhalation, Daily clopidogrel 75 mg Tab 75 mg = 1 tab(s), Oral, Daily diclofenac sodium 75 mg Oral EC Tab 75 mg = 1 tab(s), Oral, BID dicyclomine 20 mg Tab 20 mg = 1 tab(s), Oral, TID K-Phos Original 500 mg oral tablet 1 tab, Oral, BID Lasix 20 mg Tab 20 mg = 1 tab(s), Oral, Daily Linzess 290 mcg oral capsule 290 microgram = 1 cap(s), Oral, Daily losartan 25 mg, Oral, BID meclizine 25 mg Tab 25 mg = 1 tab(s), PRN, Oral, q4hr metoclopramide 10 mg Tab 10 mg = 1 tab(s), Oral, QIDACHS oxcarbazepine 300 mg Tab 600 mg = 2 tab(s), Oral, Bedtime oxybutynin 5 mg, Oral, Daily Pepcid 40 mg Tab 40 mg = 1 tab(s), Oral, Once a day (at bedtime) potassium CITRATE 10 mEq ER Tab 20 mEq = 2 tab(s), Oral, BID Prednisol 1% ophthalmic solution 1 drop(s), Eye-Right, QID pregabalin 200 mg Cap 200 mg = 1 cap(s), Oral, TID Pristiq 100 mg Tab-ER 100 mg = 1 tab(s), Oral, Daily Seroquel 100 mg, Oral, Once a day (at bedtime) Ultram 50 mg Tab 50 mg = 1 tab(s), PRN, Oral, BID Zofran 4 mg, PRN, Oral , No qualifying data available Histories Past Medical History: Active History of migraine. (3120955683) Glaucoma (05389295) Iritis (676252002) Hypoglycemia (074522207) GERD - Gastro-esophageal reflux disease (8359313989) Resolved Dehydration (76422130): Resolved. Abdominal pressure (200799951): Resolved. Family History: Primary malignant neoplasm of skin Mother Gout Father Rheumatoid arthritis Father Hypertension Father Diabetes mellitus type 2 Father Heart failure Father Stroke Mother Procedure history: Arthroscopy of knee (296749519) on 02/26/2020 at 44 Years. Cystourethroscopy with dilation of urethral stricture (541112406) on 03/31/2018 at 42 Years. Urodynamics (376057062) on 03/31/2018 at 42 Years. Spinal cord stimulator implant on 02/12/2018 at 42 Years. left lumbar sympathetic plexus block on 10/16/2017 at 42 Years. Comments: 11/21/2017 13:22 EDT - Aida CUNNINGHAM, Millicent 25% relief x 10 days then pain returned same as before Left sympathetic plexus block on 07/24/2017 at 42 Years. Comments: 08/08/2017 11:44 EDT - Rosas CUNNINGHAM, Sarah swelling has gone down-50% relief L salpingooopherectomy. Right Eye Tubal Shunt. spinal cord stimulator trial. Comments: 01/22/2018 12:56 EST - Richard CUNNINGHAM, Rox 60% relief Arthroscopy of knee (788697924). Comments: 08/24/2019 18:32 EDT - Fuad CUNNINGHAM, Beth Cox W/ ACL REPAIR Vaginal hysterectomy (411723136). Colonoscopy (398712913). EGD - Esophagogastroduodenoscopy (6833190323). Physical Examination Vital Signs (last 24 hrs) Last Charted Heart Rate Peripheral 81 bpm (FEB 07 08:) SBP 118 mmHg (FEB 07:) DBP 84 mmHg (FEB 07:) Weight 90.72 kg (FEB 07:) BMI 33.73 (FEB 07:) General: No acute distress. Patient appears well-nourished. HEENT: Head is normocephalic and external ears are normal in appearance. Cardiovascular: No signs of poor perfusion and no peripheral edema (more content not included)... Normal [facility] Comment on above: Result Comment: Elec tronically Signed By: Camilo Deras DO\.br\Date and Time Signed: 02/07/23 09:09 EST Office/Clinic Note-Physician on 02-07-2023 Office/Clinic Note-Physician [id number]#1.00TIFF Normal [facility] Outside Records Officeon Outside Records Office [id number]#1.00TIFF Normal [facility] Patient Correspondenceon Patient Correspondence [id number]#1.00TIFF Normal [facility] Patient Correspondence [id number]#1.00TIFF Normal [facility] Patient History Officeon Patient History Office [id number]#1.00TIFF Normal [facility] Release of Records Officeon 02-07-2023 Release of Records Office [id number]#1.00TIFF Normal [facility] Nonvisit Note - OTon 023 Nonvisit Note - OT Pt. cancelled today' s session. Normal [facility] OT - Orderson 02-01-2023 OT - Orders [id number]#1.00TIFF Normal [facility] OT - Orders [id number]#1.00TIFF Normal [facility] Nonvisit Note - PTon 023 Nonvisit Note - PT Cancel PT due to per clayton reasons. Normal [facility] CNOVon 01-30-2023 CNOV Office Visit (REHMMN ) JESSICA GUTIERREZ ([id number]) [address] [facility] Date Time Provider Department 01/30/23 1:00 PM HAILE BARRIOS During your visit today, we recorded the following information about you: Pulse Blood pressure 84/minute 114/83 Haile Barrios MD 01/31/2023 2:38 PM Signed BOTULINUM TOXIN THERAPY Ms. Gutierrez was accompanied [facility] Current complaints / history since last visit: most recent botulinum toxin injections on 10/31/22. Saw Orthopedics in November who offered a CSI for her right shoulder pain. That is scheduled for 02/12. Botox was effective 7-8 weeks for fingers not shoulder. Baclofen stopped a few months ago. Was taking 20mg twice a day. Would like to restart. Illnesses / hospitalizations since the last visit: recurrent UTI Other updates: no Anticoagulation: plavix, not stopped for injections Home stretching/exercise routine: daily stretching PT/OT: aquatherapy on hold due to fear of the water, does have PT/OT twice a week BT therapy effective? Yes - stiffness and active function (range of motion) Duration of benefit: 8 weeks Side effects: Unsure (reported migraine) Spasm scale: 2=Infrequent full spasms occuring less than once per hour Pain related to the purpose of the visit: Yes LOCATION: R shoulder into last two finger of hand PAIN SCALE: 5 on a scale of 0-10 PAIN CHARACTER: aching, moderate, sharp, and stiff DURATION: (How long have you had the pain?) 2 years FREQUENCY: (How often does the pain occur?) occurs constantly Patient Entered Data PROMIS No flowsheet data found. Spasticity NRS 08/03/2022 12/06/2021 11/14/2021 Spasticity Level - 8 7 Spasm Scale 3=Spasms occuring more than once per hour - - Spasm Scale - Trendable Number 3 - - Spasm Scale 12/06/2021 11/14/2021 Spasm Frequency Infrequent full spasms occuriung less than once per hour Spasms occurring more than once per hour Spasm Severity Moderate Moderate Global Impression of Change 12/06/2021 11/14/2021 Rehab global impression of change No change Not applicable Nutritional status: appetite is okay , weight is stable, swallowing is unchanged (has not scheduled FERRULER visit) Driving issues: NA does not drive Safety concerns regarding living situations and safety at home: No At risk for falling: Yes . Actual falls since last visit: frequency/number 1 slid out of wheelchair, stressed shoulder. Examination: Strength Right Left Shoulder abduction 0 5 Elbow flexion 1 5 Elbow extension 1 5 Wrist extension 1 5 Foundation Relations Manager strength (kg) 32 Hip flexion 0 5 Knee flexion 0 5 Knee extension 0 5 Plantarflexion 0 5 Dorsiflexion 0 5 Spasticity Right Left Shoulder 4 0 Elbow flexion 1 0 Elbow extension 1 0 Wrist flexion 1 0 Wrist extension 0 0 Finger flexion 3 0 Finger extension 0 0 Hip adduction 0 0 Knee extension 0. 0 Knee flexion 0 0 Plantarflexion 0 0 Modified Jesse Scale 0 - No increase in tone 1 - Slight increase in tone (catch and release at end of ROM) 1+ - Slight increase in tone, manifested by a catch, followed by minimal resistance throughout remainder (less than half of ROM) 2 - Marked increase in tone through most of the ROM, but affected part(s) easily moved 3 - Considerable increase in tone; passive movement difficult 4 - Affected part(s) rigid in flexion or extension 1+/5 right set designer strength. Spasms observed: RUE: no right upper extremity spasms LUE: no left upper extremity spasms RLE: no right lower extremity spasms LLE: no left lower extremity spasms Timed 25 foot walk: N/A Assistance required: wheelchair, other and AFO - right (brace for Right hand) Ambulation Index Score: 9 - Restricted to wheelchair, dependent for transfers UNIVERSAL PROTOCOL / SAFETY CHECKLIST Procedure to be Performed: Botulinum toxin injections Sign In: A Moment of CARE was completed. Personnel directly involved with the procedure wore the appropriate PPE (Personal Protective Equipment). Special equipment: EMG, US Patient/Surrogate Stated/Verified: PATIENT VERIFIED(optional for EMERGENT procedures): Patient name, Date of , Relevant allergies, and The intended procedure Time Out Communication: Intended patient and procedure match the source documents. Consent documented and matches the intended procedure. No relevant labs, photos, and/or imaging studies were applicable for review. Correct side/site marked and visible. Medications required for procedure verified. No fire risk assessment and interventions applicable. No implant(s) inserted. Sign Out: SIGN OUT (optional for EMERGENT procedures): No specimen collected. All instruments, equipment, possible retained foreign bodies accounted for. Post-procedure follow-up management communicated and Plan of Care Visit completed when applicable. MD Olena Mosqueda (more content not included)... Normal [facility] Nonvisit Note - OTon 023 Nonvisit Note - OT Pt. cx, no ride. Normal [facility] Consent for Treatmenton Consent for Treatment [id number]#1.00TIFF [facility] HIPAA Forms Officeon 023 HIPAA Forms Office [id number]#1.00TIFF [facility] PT - Consentson 01-22-2023 PT - Consents [id number]#1.00TIFF Normal [facility] Nonvisit Note - OTon 023 Nonvisit Note - OT Pt. cancelled today' s session. Normal [facility] Nonvisit Note - OTon 023 Nonvisit Note - OT Pt. cx, not feeling well. Normal [facility] Consent for Treatmenton Consent for Treatment [id number]#[id number] Normal [facility] Consultation Noteon 12-21-19 23 Consultation Note Patient: YANIRA GUTIERREZ Age: 47 years Sex: Female : 1975 Associated Diagnoses: None Author: Camilo Deras DO Chief Complaint 12/20/2022 11:35 EDT right shoulder pain History of Present Illness Patient is presenting with complaints of right shoulder as well as hip pain. She has a history of multiple sclerosis and significant right-sided defects as well as visual deficits on the right side. She admits that her pain is typically a 3-5/10 in severity but can increase to an 8/10 in severity when exacerbated. She has significant mount of contracture of her right shoulder and significant reduction in range of motion and mobility secondary to her right-sided deficits. She has been receiving Lyrica 200 mg 3 times daily with some relief of pain, she also has right shoulder pain and would like to discuss a possible intra-articular right shoulder injection. She receives intramuscular Botox injections in the right upper extremity for contractures and would like to discuss if we can take this over. She also has right-sided hip pain that has been going on for quite some time as well and like to discuss whether any injections would be appropriate for this. She has been in physical therapy for quite some time and is actively engaged in physical therapy with some improvement in symptoms. She would like to know what else can be done at this point in time. REID Score: 46% PHQ-2: 5 Patient denies any symptoms of progressively worsening upper/lower extremity weakness, progressively worsening gait abnormality, new onset bowel/bladder incontinence/ urinary retention, or saddle anesthesia. No new or worsening symptoms of fever, chills, night sweats. Health Status Allergies: Allergic Reactions (All) Severity Not Documented Contrast Dye- Throat swelling. Nonallergic Reactions (All) Severity Not Documented Cabbage- Diarrhea and vomit. Canceled/Inactive Reactions (All) No Known Allergies, Allergies (2) Active Reaction cabbage Diarrhea Contrast Dye throat swelling Current medications: Home Medications (22) Active allopurinol 100 mg, Oral, Daily Azopt 0.01 Susp-Opth 1 drop(s), OPTH, QID Breo Ellipta 100 mcg-25 mcg inhalation powder 1 puff(s), Inhalation, Daily clopidogrel 75 mg Tab 75 mg = 1 tab(s), Oral, Daily diclofenac sodium 75 mg Oral EC Tab 75 mg = 1 tab(s), Oral, BID dicyclomine 20 mg Tab 20 mg = 1 tab(s), Oral, TID K-Phos Original 500 mg oral tablet 1 tab, Oral, BID Lasix 20 mg Tab 20 mg = 1 tab(s), Oral, Daily Linzess 290 mcg oral capsule 290 microgram = 1 cap(s), Oral, Daily losartan 25 mg, Oral, BID meclizine 25 mg Tab 25 mg = 1 tab(s), PRN, Oral, q4hr metoclopramide 10 mg Tab 10 mg = 1 tab(s), Oral, QIDACHS oxcarbazepine 300 mg Tab 600 mg = 2 tab(s), Oral, Bedtime oxybutynin 5 mg, Oral, Daily Pepcid 40 mg Tab 40 mg = 1 tab(s), Oral, Once a day (at bedtime) potassium CITRATE 10 mEq ER Tab 20 mEq = 2 tab(s), Oral, BID Prednisol 1% ophthalmic solution 1 drop(s), Eye-Right, QID pregabalin 200 mg Cap 200 mg = 1 cap(s), Oral, TID Pristiq 100 mg Tab-ER 100 mg = 1 tab(s), Oral, Daily Seroquel 100 mg, Oral, Once a day (at bedtime) Ultram 50 mg Tab 50 mg = 1 tab(s), PRN, Oral, BID Zofran 4 mg, PRN, Oral , No qualifying data available Histories Past Medical History: Active History of migraine. (6441563913) Glaucoma (06004349) Iritis (529513592) Hypoglycemia (042092996) GERD - Gastro-esophageal reflux disease (0136729072) Resolved Dehydration (80716064): Resolved. Abdominal pressure (111586778): Resolved. Family History: Primary malignant neoplasm of skin Mother Gout Father Rheumatoid arthritis Father Hypertension Father Diabetes mellitus type 2 Father Heart failure Father Stroke Mother Procedure history: Arthroscopy of knee (227737812) on 02/26/2020 at 44 Years. Cystourethroscopy with dilation of urethral stricture (343624559) on 03/31/2018 at 42 Years. Urodynamics (984074662) on 03/31/2018 at 42 Years. Spinal cord stimulator implant on 02/12/2018 at 42 Years. left lumbar sympathetic plexus block on 10/16/2017 at 42 Years. Comments: 11/21/2017 13:22 EDT - Aida CUNNINGHAM, Millicent 25% relief x 10 days then pain returned same as before Left sympathetic plexus block on 07/24/2017 at 42 Years. Comments: 08/08/2017 11:44 EDT - Sarah Pillai RN swelling has gone down-50% relief L salpingooopherectomy. Right Eye Tubal Shunt. spinal cord stimulator trial. Comments: 01/22/2018 12:56 BG - Rox Ramos RN 60% relief Arthroscopy of knee (214639317). Comments: 08/24/2019 18:32 EDT - Fuad CUNNINGHAM, Beth Cox W/ ACL REPAIR Vaginal hysterectomy (808610129). Colonoscopy (181538390). EGD - Esophagogastroduodenoscopy (5016419541). Physical Examination Vital Signs (last 24 hrs) Last Charted Heart Rate Peripheral 77 bpm (DEC 20 11:35) SBP 123 mmHg (DEC 20 11:35) DBP 85 mmHg (DEC 20:) Ge (more content not included)... Normal [facility] Comment on above: Result Comment: Elec tronically Signed By: Camilo Deras DO\.br\Date and Time Signed: 12/20/22 12:35 EDT Office/Clinic Note-Physician on 12-20-2022 Office/Clinic Note-Physician [id number]#[id number] Normal [facility] Patient Correspondenceon Patient Correspondence [id number]#1.00TIFF Normal [facility] Patient Correspondence [id number]#1.00TIFF Normal [facility] Patient History Officeon Patient History Office [id number]#1.00TIFF [facility] PT - [place] 12-10-2022 PT - Orders [id number]#1.00TIFF [facility] Nonvisit Note - OTon 023 Nonvisit Note - OT Pt. cancelled today' s appointment as she is ill with the flu. [facility] Retail - Clinical Noteon Retail - Clinical Note [id number]#[id number]:127 [facility] CNOVon 10-31-2022 CNOV Office Visit (REHMMN ) JESSICA GUTIERREZ ([id number]) 1975 F Date Time Provider Department 10/31/22 1:45 PM HAILE BARRIOS During your visit today, we recorded the following information about you: Haile Barrios MD 11/03/2022 10:28 PM Signed BOTULINUM TOXIN THERAPY Ms. Gutierrez came with her daughter, who is waiting in [facility] Current complaints / history since last visit: most recent botulinum toxin injections on 08/03/22. Botox injections helped with stiffness in hand. She is also currently in aquatherapy and states that it has been beneficial with spasms and strength. Illnesses / hospitalizations since the last visit: ER visit for Márquez catheter change Other updates: No Anticoagulation: on clopidogrel, not stopped for injections Home stretching/exercise routine: Daily stretching PT/OT: currently in aquatherapy BT therapy effective? Yes - stiffness and active function (range of motion) Duration of benefit: 8 weeks Side effects: Unsure (reported migraine) Pain related to the purpose of the visit: Yes LOCATION: Right shoulder and hip PAIN SCALE: 5 on a scale of 0-10 for shoulder, 3/10 for hip PAIN CHARACTER: sharp pain in shoulder, burning in hip - not sure if it's from sitting in wheelchair or less walking. DURATION: (How long have you had the pain?) 2 years for right shoulder pain, hip has been new FREQUENCY: (How often does the pain occur?) right shoulder pain occurs constantly, right hip pain is intermittent AGGRAVATING FACTORS: lying bothers hip ALLEVIATING FACTORS: no known factors with the hip or shoulder Patient Entered Data [facility] No flowsheet data found. Spasticity NRS 10/31/2022 08/03/2022 12/06/2021 11/14/2021 Spasticity Level - - 8 7 Spasm Scale 3=Spasms occuring more than once per hour 3=Spasms occuring more than once per hour - - Spasm Scale - Trendable Number 3 3 - - Spasm Scale 12/06/2021 11/14/2021 Spasm Frequency Infrequent full spasms occuriung less than once per hour Spasms occurring more than once per hour Spasm Severity Moderate Moderate Global Impression of Change 12/06/2021 11/14/2021 Rehab global impression of change No change Not applicable Nutritional status: appetite is okay , weight is stable, swallowing has been an issue Driving issues: NA Not currently driving Safety concerns regarding living situations and safety at home: No At risk for falling: Yes . Actual falls since last visit: frequency/number 3 due to falling out of wheelchair without locking the wheels and trying to be more independent, 0 injuries. Examination: Strength Right Left Shoulder abduction 0 5 Elbow flexion 1 5 Elbow extension 1 5 Wrist extension 1 5 Foundation Relations Manager strength (kg) 32 Hip flexion 0 5 Knee flexion 0 5 Knee extension 0 5 Plantarflexion 0 5 Dorsiflexion 0 5 Spasticity Right Left Shoulder 4 0 Elbow flexion 1 0 Elbow extension 1 0 Wrist flexion 1 0 Wrist extension 0 0 Finger flexion 3 0 Finger extension 0 0 Hip adduction 0 0 Knee extension 0. 0 Knee flexion 0 0 Plantarflexion 0 0 Modified Jesse Scale 0 - No increase in tone 1 - Slight increase in tone (catch and release at end of ROM) 1+ - Slight increase in tone, manifested by a catch, followed by minimal resistance throughout remainder (less than half of ROM) 2 - Marked increase in tone through most of the ROM, but affected part(s) easily moved 3 - Considerable increase in tone; passive movement difficult 4 - Affected part(s) rigid in flexion or extension 1+/5 right set designer strength. Spasms observed: RUE: no right upper extremity spasms LUE: no left upper extremity spasms RLE: no right lower extremity spasms LLE: no left lower extremity spasms Timed 25 foot walk: N/A Assistance required: wheelchair, other and AFO - right (brace for Right hand) Ambulation Index Score: 9 - Restricted to wheelchair, dependent for transfers UNIVERSAL PROTOCOL / SAFETY CHECKLIST Procedure to be Performed: Botulinum toxin injection Sign In: A Moment of CARE was completed. Personnel directly involved with the procedure wore the appropriate PPE (Personal Protective Equipment). Special equipment: EMG Patient/Surrogate Stated/Verified: PATIENT VERIFIED(optional for EMERGENT procedures): Patient name, Date of , Relevant allergies, and The intended procedure Time Out Communication: Intended patient and procedure match the source documents. Consent documented and matches the intended procedure. No relevant labs, photos, and/or imaging studies were applicable for review. Correct side/site marked and visible. Medications required for procedure verified. No fire risk assessment and interventions applicable. No implant(s) inserted. Sign Out: SIGN OUT (optional for EMERGENT procedures): No specimen collected. All instruments, equipment, possible retained foreign bodies acc (more content not included)... Normal [facility] Nonvisit Note - OTon 023 Nonvisit Note - OT Pt. cx. had to take her daughter to the physician. [facility] Nonvisit Note - PTon 023 Nonvisit Note - PT taking daughter to the Dr Kaycee [facility] OT - Consentson 09-27-2022 OT - Consents [id number]#[id number]:127 [facility] OT - Otheron 09-27-2022 OT - Other [id number]#[id number]:127 [facility] OT - Other [id number]#1.00CD:127 [facility] OT - [place] 09-25-2022 OT - Orders [id number]#1.00CD:127 [facility] Ambulatory Visit Summaryon 0 09-18-2022 Ambulatory Visit Summary JESSICA GUTIERREZ :1975 Visit Date:09/18/2022 Ambulatory Visit Instructions Your Diagnosis Hypotonic neurogenic bladder Your Care Team Attending Physician - CHERELLE ROSS, Yaakov Caicedo Primary Care Physician - Francesco Quinteros MD This Is Your Medications List potassium citrate (potassium CITRATE 10 mEq ER Tab) pregabalin (pregabalin 200 mg Cap) tramadol (Ultram 50 mg Tab) Contact prescribing physician if questions or concerns bimatoprost ophthalmic (Lumigan 0.01% ophthalmic solution) brimonidine-timolol ophthalmic (Combigan ophthalmic solution) brinzolamide ophthalmic (Azopt 0.01 Susp-Opth) clopidogrel (clopidogrel 75 mg Tab) desvenlafaxine (Pristiq 100 mg Tab-ER) diclofenac (diclofenac sodium 75 mg Oral EC Tab) dicyclomine (dicyclomine 20 mg Tab) famotidine (Pepcid 40 mg Tab) fesoterodine (Toviaz 4 mg oral tablet, extended release) fluticasone-vilanterol (Breo Ellipta 100 mcg-25 mcg inhalation powder) furosemide (Lasix 20 mg Tab) hyoscyamine (hyoscyamine Sublingual) linaclotide (Linzess 290 mcg oral capsule) losartan meclizine (meclizine 25 mg Tab) metoclopramide (metoclopramide 10 mg Tab) ondansetron (Zofran) oxcarbazepine (oxcarbazepine 300 mg Tab) pantoprazole (Protonix) prednisoLONE ophthalmic (Prednisol 1% ophthalmic solution) quetiapine (Seroquel) Procedures Performed Arthroscopy of knee (02/26/2020), Cystourethroscopy with dilation of urethral stricture (03/31/2018), Urodynamics (03/31/2018), Spinal cord stimulator implant (02/12/2018), left lumbar sympathetic plexus block (10/16/2017), Left sympathetic plexus block (07/24/2017), Arthroscopy of knee, Colonoscopy, EGD - Esophagogastroduodenoscopy, L salpingooopherectomy, Right Eye Tubal Shunt, spinal cord stimulator trial, Vaginal hysterectomy. What to do next Scheduled Follow-Up Appointments Saturday 10:00 AM EDT With: Where: [facility] Saturday 11:00 AM EDT With: Where: [facility] Saturday 12:45 PM EDT With: Where: [facility] Saturday 1:45 PM EDT With: Where: [facility] Saturday 1:00 PM EDT With: Where: [facility] Saturday 2:00 PM EDT With: Where: [facility] Saturday 8:45 AM EDT With: Where: [facility] Saturday 9:45 AM EDT With: Where: [facility] Saturday 10:00 AM EDT With: Where: [facility] Saturday 11:15 AM EDT With: Where: [facility] Saturday 10:00 AM EDT With: Where: [facility] Saturday 11:00 AM EDT With: Where: [facility] Saturday 9:30 AM EDT With: Where: [facility] Saturday 10:45 AM EDT With: Where: [facility] 2022 10:15 AM EDT With: MARILIA CR PA-C Where: [facility] Patient Educationon 09-19-19 23 Patient Education Urology Neurogenic Bladder Neurogenic bladder is a bladder control disorder. It is usually caused by problems with the nerves that control the bladder. The brain sends signals through the spinal cord to the muscles in the bladder that start and stop urine flow. With neurogenic bladder, the nerves and muscles do not work together the way they should. This condition may make the bladder overactive, meaning you have trouble holding urine. In other cases, it may make the bladder underactive. This means that you have trouble passing urine. What are the causes? This condition may be caused by nerve damage or a condition that disrupts the signals from your brain to your bladder. Many things can cause these nerve problems, including: ? A disease that affects the nervous system, such as: ? Alzheimer's disease. ? Cerebral palsy. ? Multiple sclerosis. ? Diabetes. ? Parkinson's disease. ? Damage to your brain or spinal cord. This can come from: ? Trauma. ? Tumors. ? Infection. ? Surgery. ? Alcohol abuse. ? Stroke. ? A congenital disability that affects the spinal cord. What increases the risk? You are more likely to develop this condition if you have nerve damage or a nerve disorder. What are the signs or symptoms? Signs and symptoms of this condition include: ? Leaking or gushing urine (incontinence). ? A sudden, strong urge to pass urine (urgency). ? Frequent urination during the day and night. ? Being unable to empty your bladder completely (urinary retention). ? Frequent urinary tract infections. How is this diagnosed? This condition may be diagnosed based on: ? Your symptoms and medical history. ? A physical exam. ? Records from a bladder diary. You may be asked to keep a record or log of your bladder symptoms and the times that you urinate. You may also have tests, such as: ? A urine test to check for infection. ? A bladder scan after you urinate to see how much urine is left in your bladder. ? Tests to measure your urine flow and see how well the flow is controlled (urodynamic tests). ? A procedure that uses a small device with a camera to look through your urethra into your bladder (cystoscopy). A health care provider who specializes in the urinary tract (urologist) may do this test. ? Imaging tests of your brain or spine, such as MRI or CT scan. How is this treated? Treatment for this condition depends on the cause and the symptoms that you have. Work closely with your health care provider to find the treatments that will improve your quality of life. Treatment options include: ? Learning ways to control when you urinate, such as: ? Urinating at scheduled times. ? Training yourself to delay urination. ? Exercises to strengthen the muscles that control urine flow (Kegel exercises). ? Avoiding foods or drinks that make your symptoms worse. ? Taking medicines to: ? Stimulate an underactive bladder. ? Relax an overactive bladder. ? Treat a urinary tract infection. ? Learning how to use a thin tube (catheter) to empty your bladder. A catheter is a hollow tube that you pass through your urethra. ? Procedures to stimulate the nerves that control your bladder. ? Surgery, if other treatments do not help. Follow these instructions at home: Lifestyle ? Keep a bladder diary to find out which foods, liquids, or activities make your symptoms worse. ? Use your bladder diary to schedule bathroom trips. If you are away from home, plan to be near a bathroom when your schedule says you will need one. ? Limit beverages that stimulate urination. These include soda, coffee, and tea. ? After urinating, wait a few minutes and try again. ? Make sure you urinate just before you leave the house and just before you go to bed. Kegel exercises Do Kegel exercises to strengthen the muscles that control the passing of urine. These muscles are the ones you use to try to hold urine when you need to urinate. To do Kegel exercises: 1. Squeeze your pelvic floor muscles tight, as if you are trying to stop the flow of urine. You should feel a tight lift in your rectal area. If you are female, you should also feel a tightness in your vaginal area. Keep your stomach, buttocks, and legs relaxed. 2. Hold the muscles tight for 5?10 seconds. 3. Relax your muscles for the same amount of time. 4. Repeat 10 times. Repeat this exercise 3 times a day or as many times as told by your health care provider. General instructions ? Take [id number] and prescription medicines only as told by your health care provider. ? Keep all follow-up visits. This is important. Contact a health care provider if: ? You are having a hard time controlling your symptoms. ? Your symptoms are getting worse. ? You have signs of a urinary tract infection. These may include: ? A burning feeling when you urinate. ? Fever or chills. ? Cloudy or bloody urine. (more content not included)... Normal [facility] Urology Office/Clinic Noteon 09-18-2022 Urology Office/Clinic Note Chief Complaint 3 week catheter change HPI Staff Pt is a 47 yr old Female here for 3 wk cath change. Previous DX:Hypotonic Neurogenic Bladder. S/p Cysto/UD 03/31/18. Urodynamics 03/31/18. Pt is legally blind. Dysuria: _ Hematuria: _ Leaking: _ Abdominal pain: _ Flank pain: _ History of Present Illness Tests reviewed: none I have reviewed the previous health record information and history for this patient from . I have reviewed and verified the staff HPI to be accurate for this encounter. There have been no associated fever, chills, flank pain, or blood in the urine. Denies any urinary infections since last encounter. Review of Systems PHQ Score Initial Depression Screen Score: 0 ROS - Provider Constitutional: denies weight loss, denies hot flashes. Eyes: denies eye problems. Gastrointestinal: denies nausea, denies vomiting. Cardiovascular: denies chest pain or angina. Integumentary: no dryness Musculoskeletal: denies musculoskeletal symptoms. ENMT: denies otolaryngeal symptoms. Respiratory: no shortness of breath. Heme/Lymph: denies easy bleeding tendency, denies easy bruising tendency. Psychiatric: no confusion, no anxiety. Genitourinary: See HPI. Physical Exam General Appearance: alert , no acute distress, well nourished, well developed female. Assessment/Plan 1. 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 Pt is legally blind, unable to CIC. Presented to [facility] ER on 02/28/22 and 05/28/22 due to plugged cath. S/p Cysto, difficult trocar SP tube placement, fulguration of bleeding points 07/02/22. Last SP tube change 08/26/22. No sample provided for UA today, pt has SP tube. Pt states she is still experiencing her cath getting plugged up. Pt states she experiences burning around the sight of her SP tube. Advised pt that this can be normal. Discussed starting a K-PHOS Original 500mg. Pt asked if she would be okay to start pool therapy. Advised pt that pool therapy would not be okay to do. The SP Márquez was changed in the office today with no difficulties, and flushes appropriately to ensure proper placement. No build up on the cath today, noticed once removed. Will send K-PHOS 500mg BID. Discussed the medication side effects, and the patient will monitor closely for these, as well as for symptom improvement. If severe side effects occur, the medication should be stopped and the office notified. Follow up in 3-4 weeks. All questions/concerns were discussed. Pt to call the office if she encounters any issues prior. Pt acknowledges understanding. 2. Recurrent suprapubic tube dysfunction Overall the Patient keeps having difficulties with clogging of her suprapubic catheter. She wonders about her options. She is already on potassiums citrate so this should continue. We will add K-Phos original to the regimen. She knows to push the fluids. We will now need to check electrolytes to be sure the potassium level is within normal range being on these medications. Also increased the size of her suprapubic catheter from 16 [place] to 18 [place]. This has a slightly larger port of urine entry. We will call to get the results of her electrolytes. Follow-up 3 to 4 weeks for suprapubic tube change which changed easily. Irrigates well Follow-up With When Contact Information CHERELLE ROSS, Yaakov Caicedo, URL [address] [address]- Additional Instructions: SP Tube Change Patient Education Neurogenic Bladder Lora Mari, personally scribed for Dr. Greenwood on 09/18/2022 10:50:36. . Documentation recorded by the scribe, Lora Goyal, accurately reflects the services(s) I performed and decisions made by me. Authenticated by Dr. Greenwood on 09/18/2022 10:52:43. Portions of this record may have been created with voice recognition artificial intelligence software, specifically [employer], [employer] and or [employer]. Substitutions may have occurred due to the inherent limitations of voice recognition and artificial intelligence software. Problem List/Past Medical History Ongoing Abnormality of gait Acute cerebrovascular accident (CVA) Anxiety Cervical disc disease Diastasis recti Gastroparesis GERD - Gastro-esophageal reflux disease Glaucoma History of migraine. 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 Normal [facility] Comment on above: Result Comment: Elec tronically Signed By: CHERELLE ROSS, Yaakov Caicedo\.br\Date and Time Signed: 09/18/22 10:54 EDT\.br\Electronically Co-Signed By: Lora Goyal\.br\Date and Time Co-Signed: 09/18/22 10:50 EDT PT - Orderson 08-27-2022 PT - Orders [id number]:127 Normal [facility] Nonvisit Note - OTon 023 Nonvisit Note - OT Pt. cx, not feeling well. Normal [facility] CNOVon 08-03-2022 CNOV Office Visit (REHMMN ) JESSICA GUTIERREZ ([id number]) 1975 F Date Time Provider Department 08/03/22 11:15 AM HAILE BARRIOS During your visit today, we recorded the following information about you: Haile Barrios MD 08/03/2022 10:30 PM Signed BOTULINUM TOXIN THERAPY Ms. Dye was accompanied by a friend. Current complaints / history since last visit: most recent botulinum toxin injections on 03/28/22. The injections helped for about 3 months. No side effects. She has been getting spasms in the R hand lately. Illnesses / hospitalizations since the last visit: a few ER visits (UTI, blocked suprapubic catheter) Other updates: had suprapubic catheter placement 1 month ago. Anticoagulation: NA Home stretching/exercise routine: stretches on a regular basis, particularly the R hand. PT/OT: none currently. BT therapy effective? Yes - stiffness Duration of benefit: 11 weeks Side effects: No Spasm scale: 3=Spasms occuring more than once per hour Pain related to the purpose of the visit: Yes LOCATION: R shoulder PAIN SCALE: 5 on a scale of 0-10 PAIN CHARACTER: sharp DURATION: (How long have you had the pain?) chronic FREQUENCY: (How often does the pain occur?) occurs constantly Patient Entered Data PROMIS No flowsheet data found. Spasticity NRS 12/06/2021 11/14/2021 Spasticity Level 8 7 Spasm Scale 12/06/2021 11/14/2021 Spasm Frequency Infrequent full spasms occuriung less than once per hour Spasms occurring more than once per hour Spasm Severity Moderate Moderate Global Impression of Change 12/06/2021 11/14/2021 Rehab global impression of change No change Not applicable Nutritional status: appetite good, weight stable, swallowing coughs and chokes on solids (non prior swallow evaluation) Driving issues: NA does not drive Safety concerns regarding living situations and safety at home: No At risk for falling: Yes . Actual falls since last visit: frequency/number 2-3, no injuries. Falls trying to do things on her own. Examination: Strength Right Left Shoulder abduction 0 5 Elbow flexion 0 5 Elbow extension 0 5 Wrist extension 0 5 Hip flexion 0 5 Knee flexion 0 5 Knee extension 0 5 Plantarflexion 0 5 Dorsiflexion 0 5 Spasticity Right Left Shoulder 4 0 Elbow flexion 1 0 Elbow extension 1 0 Wrist flexion 1 0 Wrist extension 0 0 Finger flexion 3 0 Finger extension 0 0 Hip adduction 0 0 Knee extension 0. 0 Knee flexion 0 0 Plantarflexion 0 0 Modified Jesse Scale 0 - No increase in tone 1 - Slight increase in tone (catch and release at end of ROM) 1+ - Slight increase in tone, manifested by a catch, followed by minimal resistance throughout remainder (less than half of ROM) 2 - Marked increase in tone through most of the ROM, but affected part(s) easily moved 3 - Considerable increase in tone; passive movement difficult 4 - Affected part(s) rigid in flexion or extension 1+/5 right set designer strength. Spasms observed: RUE: no right upper extremity spasms LUE: no left upper extremity spasms RLE: no right lower extremity spasms unsustained ankle clonus LLE: no left lower extremity spasms Timed 25 foot walk: N/A Assistance required: wheelchair and other (brace for Right hand) Ambulation Index Score: 9 - Restricted to wheelchair, dependent for transfers UNIVERSAL PROTOCOL / SAFETY CHECKLIST Procedure to be Performed: botulinum toxin injections Sign In: A Moment of CARE was completed. Personnel directly involved with the procedure wore the appropriate PPE (Personal Protective Equipment). Special equipment: EMG Patient/Surrogate Stated/Verified: PATIENT VERIFIED(optional for EMERGENT procedures): Patient name, Date of , Relevant allergies, and The intended procedure Time Out Communication: Intended patient and procedure match the source documents. Consent documented and matches the intended procedure. No relevant labs, photos, and/or imaging studies were applicable for review. Correct side/site marked and visible. Medications required for procedure verified. No fire risk assessment and interventions applicable. No implant(s) inserted. Sign Out: SIGN OUT (optional for EMERGENT procedures): No specimen collected. All instruments, equipment, possible retained foreign bodies accounted for. Post-procedure follow-up management communicated and Plan of Care Visit completed when applicable. Haile Barrios MD UNIVERSAL PROTOCOL / SAFETY CHECKLIST The risks, benefits and alternatives of the procedure were explained. Written Consent Obtained: yes - 11/14/2021 Clinician(s) performing the injections: Haile Barrios MD Incident Commander: Tiffany Thomas LPN The patient was positioned seated in wheelchair. Brand of toxin injected: Botox. After skin preparation with alcohol, a total dose of 300 units were injected as follows: (more content not included)... Normal [facility] Urology Office/Clinic Noteon 07-31-2022 Urology Office/Clinic Note HPI Staff Pt is here today for one month follow up for SP tube change. Previous DX: hypotonic neurogenic bladder. S/P Cysto/UD done 03/31/18. Urodynamics done 03/31/18. Dysuria: pt states the insertion site is not healed right and is causing some pain Hematuria: yes, pt states today it was really bad. pt states its been the last two or so days Leaking: yes Abdominal pain: denies Flank pain: denies History of Present Illness Tests reviewed: reviewed UA, op note. I have reviewed the previous health record information and history for this patient from Dr. Greenwood. I have reviewed and verified the staff HPI to be accurate for this encounter. There have been no associated fever, chills, flank pain, or blood in the urine. Denies any urinary infections since last encounter. Review of Systems ROS - Provider Constitutional: denies weight loss, denies hot flashes. Eyes: denies eye problems. Gastrointestinal: denies nausea, denies vomiting. Cardiovascular: denies chest pain or angina. Integumentary: no dryness Musculoskeletal: denies musculoskeletal symptoms. ENMT: denies otolaryngeal symptoms. Respiratory: no shortness of breath. Heme/Lymph: denies easy bleeding tendency, denies easy bruising tendency. Psychiatric: no confusion, no anxiety. Genitourinary: See HPI. Physical Exam General Appearance: alert , no acute distress, well nourished, well developed female. Genitourinary: bladder nonpalpable, no flank pain. Assessment/Plan Pt is legally blind. 1. 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 Pt is legally blind, unable to CIC. Presented to [facility] ER on 02/28/22 and 05/28/22 due to plugged cath. S/p Cysto, difficult trocar SP tube placement, fulguration of bleeding points 07/02/22. Last SP tube change 07/03/22. No sample provided for UA today, pt has SP tube. The patient denies major complications since the last catheter change. There has been no blood in the urine and no evidence of fever, chills, or flank pain. The Márquez was changed in the office today with no difficulties, and flushes appropriately to ensure proper placement. Follow up 4 wk SP tube change or sooner if needed. Pt understands and agrees with plan. Patient is doing well except she does have somewhat pink urine. This is not severe. No clots. There is also a bit of an open wound on the right lateral aspect of the suprapubic site insertion. This does not appear purulent. There is no surrounding erythema or fluctuance. Suprapubic tube change without difficulty. Plan is antibiotic ointment to the site and monitor over time. I would not recommend suturing this at this point. She agrees with that plan new dressing placed and we will see her in 1 month for suprapubic tube change Follow-up With When Contact Information CHERELLE ROSS, Yaakov Caicedo, URL [address] [address]- Additional Instructions: 4 wk sp tube change Patient Education I, Honey Bean, personally scribed for Dr. Greenwood on 07/31/2022 14:36:40. . Documentation recorded by the scribe, Honey Bean, accurately reflects the services(s) I performed and decisions made by me. Authenticated by Dr. Greenwood on 07/31/2022 14:38:17. Problem List/Past Medical History Ongoing Abnormality of gait Acute cerebrovascular accident (CVA) Anxiety Cervical disc disease Diastasis recti Gastroparesis GERD - Gastro-esophageal reflux disease Glaucoma History of migraine. 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 Nuclear sclerosis Laurinburg's syndrome Poor short term memory Reflex sympathetic dystrophy Right ovarian cyst Sensorineural hearing loss of left ear with normal hearing on right side Spastic hemiparesis affecting dominant side Transverse myelopathy syndrome Historical Abdominal pressure Dehydration Procedure/Surgical History Arthroscopy of knee (02/26/2020), Cystourethroscopy with dilation of urethral stricture (03/31/2018), Urodynamics (03/31/2018), Spinal cord stimulator implant (02/12/2018), left lumbar sympathetic plexus block (10/16/2017), Left sympathetic plexus block (07/24/2017), Arthroscopy of knee, Colonoscopy, EGD - Esophagogastroduodenoscopy, L salpingooopherectomy, Right Eye Tubal Shunt, spinal cord stimulator trial, Vaginal hysterectomy. Medications Azopt 0.01 Susp-Opth, 1 drop(s), OPTH, QID Breo Ellipta 100 mcg-25 mcg inhalation powder, 1 puff(s), Inhalation, Daily clopidogrel 75 mg Tab, 75 mg= 1 tab(s), Oral, Daily Combigan ophthalmic solution, 1 drop(s), Eye-Right, TID diclofenac sodium 75 mg Oral EC Tab, 75 mg= 1 tab(s), Oral, BID dicyclomine 20 mg Tab, 20 mg= 1 tab(s), Oral, TID hyoscyami (more content not included)... Normal [facility] Comment on above: Result Comment: Elec tronically Signed By: Yaakov GREENWOOD MD P\.br\Date and Time Signed: 07/31/22 14:39 EDT\.br\Electronically Co-Signed By: Honey Bean\.br\Date and Time Co-Signed: 07/31/22 14:36 EDT Nonvisit Note - OTon 023 Nonvisit Note - OT Pt. cx, ill. Normal [facility] Nonvisit Note - PTon 023 Nonvisit Note - PT Pt canceled due to illness. Normal [facility] ED Note-Physicianon 07-23-19 ED Note-Physician [id number]:127 Normal [facility] CULTURE URINEon 07-15-2022 CULTURE URINE Isolate 1 Proteus mirabilis >100,000 cfu/mL of Isolate 2 Citrobacter freundii 50,000 cfu/mL of ORGANISM 1 Proteus mirabilis ANTIBIOTIC M.I.C RX STATUS Ampicillin >=32 R F Ampicillin/Sulbactam 16 I F Piperacillin/Tazobactam <=4 S F Cefazolin <=4 S F Ceftazidime <=1 S F Ceftriaxone <=1 S F Ertapenem <=0.5 S F Imipenem 1 S F Amikacin <=2 S F Gentamicin >=16 R F Tobramycin 4 S F Ciprofloxacin <=0.25 S F Levofloxacin <=0.12 S F Nitrofurantoin 128 R F Trimethoprim/Sulfamethoxazol e >=320 R F ORGANISM 2 Citrobacter freundii ANTIBIOTIC M.I.C RX STATUS Piperacillin/Tazobactam <=4 S F Cefazolin >=64 R F Ceftazidime <=1 S F Ceftriaxone <=1 S F Ertapenem <=0.5 S F Imipenem <=0.25 S F Amikacin <=2 S F Gentamicin <=1 S F Tobramycin <=1 S F Ciprofloxacin <=0.25 S F Levofloxacin 0.5 S F Nitrofurantoin <=16 S F Trimethoprim/Sulfamethoxazol e <=20 S F Normal [facility] Comment on above: Performed By: #### U RCX #### [facility] [address] [place] [address] Dr. Kevin Sebastian CBC AUTO DIFFon 07-12-2022 BASO # 0.1 103/ul Normal 0.0-0.1 [facility] Comment on above: Performed By: #### C BC #### [facility] [address] [place] [address] Dr. Kevin Sebastian Basophils/100 WBC (Bld) 0.7 % Normal 0.2-2.0 [facility] Comment on above: Performed By: #### C BC #### [facility] [address] [place] [address] Dr. Kevin Sebastian EO # 0.1 103/ul Normal 0.0-0.7 [facility] Comment on above: Performed By: #### C BC #### [facility] [address] [place] [address] Dr. Kevin Sebastian Eosinophils/100 WBC (Bld) 0.7 % Critically low 0.9-7.0 [facility] Comment on above: Performed By: #### C BC #### [facility] [address] [place] [address] Dr. Kevin Sebastian Erythrocyte distribution width (RBC) [Ratio] 17.2 % Critically high 11.0-15.0 [facility] Comment on above: Performed By: #### C BC #### [facility] [address] [place] [address] Dr. Kevin Sebastian Hematocrit (Bld) [Volume fraction] 34.5 % Critically low 36.0-48.0 [facility] Comment on above: Performed By: #### C BC #### [facility] [address] [place] [address] Dr. Kevin Sebastian Hemoglobin (Bld) [Mass/Vol] 10.8 g/dL Critically low 12.0-16.0 [facility] Comment on above: Performed By: #### C BC #### [facility] [address] [place] [address] Dr. Kevin Sebastian IG # 0.03 10e3/ul Normal 0.00-0.03 [facility] Comment on above: Performed By: #### C BC #### [facility] [address] [place] [address] Dr. Kevin Sebastian IG % 0.3 % Normal 0.0-0.5 [facility] Comment on above: Performed By: #### C BC #### [facility] [address] [place] [address] Dr. Kevin Sebastian LYMPH # 2.3 103/ul Normal 1.2-3.8 [facility] Comment on above: Performed By: #### C BC #### [facility] [address] [place] [address] Dr. Kevin Sebastian Lymphocytes/100 WBC (Bld) 22.5 % Normal 20.5-60.0 [facility] Comment on above: Performed By: #### C BC #### [facility] [address] [place] [address] Dr. Kevin Sebastian MANUAL DIFF REQ NO Normal [facility] Comment on above: Performed By: #### C BC #### [facility] [address] [place] [address] Dr. Kevin Sebastian MCH (RBC) [Entitic mass] 24.2 pg Critically low 26.7-34.0 [facility] Comment on above: Performed By: #### C BC #### [facility] [address] [place] [address] Dr. Kevin Sebastian MCHC (RBC) [Mass/Vol] 31.3 g/dL Normal 29.9-35.2 [facility] Comment on above: Performed By: #### C BC #### [facility] [address] [address] [address] Kevin Sebastian MCV (RBC) [Entitic vol] 77.4 fL Critically low 81.0-99.0 [facility] Comment on above: Performed By: #### C BC #### [facility] [address] [address] [address] Kevin Sebastian MONO # 1.0 103/ul Critically high 0.3-0.8 [facility] Comment on above: Performed By: #### C BC #### [facility] [address] [address] [address] Kevin Sebastian Monocytes/100 WBC (Bld) 9.5 % Normal 1.7-12.0 [facility] Comment on above: Performed By: #### C BC #### [facility] [address] [place] [address] Dr. Kevin Sebastian NEUT # 6.7 103/ul Critically high 1.4-6.5 [facility] Comment on above: Performed By: #### C BC #### [facility] [address] [place] [address] Dr. Kevin Sebastian Neutrophils/100 WBC (Bld) 66.3 % Normal 43.0-75.0 [facility] Comment on above: Performed By: #### C BC #### [facility] [address] [place] [address] Dr. Kevin Sebastian Platelet mean volume (Bld) [Entitic vol] 11.1 fL Normal 9.5-13.5 [facility] Comment on above: Performed By: #### C BC #### [facility] [address] [address] [address] Kevin Sebastian PLT 265 103/ul Normal 150-450 [facility] Comment on above: Performed By: #### C BC #### [facility] [address] [address] [address] Kevin Sebastian RBC 4.46 106/ul Normal 4.20-5.40 [facility] Comment on above: Performed By: #### C BC #### [facility] [address] [place] [address] Dr. Kevin Sebastian WBC 10.0 103/ul Normal 4.0-11.0 [facility] Comment on above: Performed By: #### C BC #### [facility] [address] [place] [address] Dr. Kevin Sebastian ER URINE PROFILEon 3 Bilirubin Ql (U) Negative Normal NEGATIVE [facility] Comment on above: Performed By: #### Bruna HOWELL UMNATASHARO #### [facility] [address] [place] [address] Dr. Kevin Sebastian Clarity (U) CLEAR Normal CLEAR [facility] Comment on above: Performed By: #### EMILY CLARKERO #### [facility] [address] [place] [address] Dr. Kevin Sebastian Color (U) LT. YELLOW Normal YELLOW [facility] Comment on above: Performed By: #### EMILY CLARKERO #### [facility] [address] [place] [address] Dr. Kevin Sebastian ERULEIGHA A micrscopic examina tion will be performed if indicated. Normal [facility] Comment on above: Performed By: #### EMILY CLARKERO #### [facility] [address] [place] [address] Dr. Kevin Sebastian Glucose Ql (U) Negative Normal NEGATIVE [facility] Comment on above: Performed By: #### EMILY CLARKERO #### [facility] [address] [place] [address] Dr. Kevin Sebastian Hemoglobin Ql (U) TRACE-INTACT Abnormal NEGATIVE [facility] Comment on above: Performed By: #### EMILY CLARKERO #### [facility] [address] [place] [address] Dr. Kevin Sebastian Ketones Ql (U) Negative Normal NEGATIVE [facility] Comment on above: Performed By: #### EMILY CLARKERO #### [facility] [address] [place] [address] Dr. Kevin Sebastian LEUKOCYTES SMALL Abnormal NEGATIVE [facility] Comment on above: Performed By: #### Bruna HOWELL, UMICRO #### [facility] [address] [place] [address] Dr. Kevin Sebastian Nitrite Ql (U) Negative Normal NEGATIVE [facility] Comment on above: Performed By: #### Bruna HOWELL, UMICRO #### [facility] [address] [place] [address] Dr. Kevin Sebastian pH (U) 7.0 [pH] Normal 5-9 [facility] Comment on above: Performed By: #### Bruna HOWELL, UMICRO #### [facility] [address] [place] [address] Dr. Kevin Sebastian SPEC GRAVITY 1.015 Normal 1.005-<=1. 025 [facility] Comment on above: Performed By: #### Bruna HOWELL, UMICRO #### [facility] [address] [place] [address] Dr. Kevin Sebastian UA PROTEIN Negative Normal NEGATIVE/ TRACE [facility] Comment on above: Performed By: #### Bruna HOWELL, UMICRO #### [facility] [address] [place] [address] Dr. Kevin Sebastian UR MICRO IND INDICATED Normal [facility] Comment on above: Performed By: #### Bruna HOWELL, UMICRO #### [facility] [address] [place] [address] Dr. Kevin Sebastian Urobilinogen Qn (U) 0.2 {Gianni'U}/dL Normal 0.2 - 1. 0 [facility] Comment on above: Performed By: #### Bruna HOWELL, UMICRO #### [facility] [address] [place] [address] Dr. Kevin Sebastian PROF CHEM 8 (BAS METB)on Anion gap [Moles/Vol] 13.7 mmol/L Normal Th [facility] Comment on above: Performed By: #### B MP #### [facility] [address] [place] [address] Dr. Kevin Sebastian Calcium [Mass/Vol] 9.3 mg/dL Normal 8.5-10.1 [facility] Comment on above: Performed By: #### B MP #### [facility] [address] [place] [address] Dr. Kevin Sebastian Chloride [Moles/Vol] 102 mmol/L Normal 98-107 [facility] Comment on above: Performed By: #### B MP #### [facility] [address] [address] [address] Kevin Sebastian CO2 [Moles/Vol] 28.1 mmol/L Normal 21.0-32.0 [facility] Comment on above: Performed By: #### B MP #### [facility] [address] [place] [address] Dr. Kevin Sebastian Creatinine [Mass/Vol] 0.91 mg/dL Normal 0.55-1.02 [facility] Comment on above: Performed By: #### B MP #### [facility] [address] [place] [address] Dr. Kevin Sebastian EGFR-AF CHADIAN >60 Normal >=60 [facility] Comment on above: Performed By: #### B MP #### [facility] [address] [place] [address] Dr. Kevin Sebastian EGFR-NON AF CHADIAN >60 Normal >=60 [facility] Comment on above: Performed By: #### B MP #### [facility] [address] [place] [address] Dr. Kevin Sebastian Glucose [Mass/Vol] 105 mg/dL Normal 74-106 [facility] Comment on above: Performed By: #### B MP #### [facility] [address] [place] [address] Dr. Kevin Sebastian Potassium [Moles/Vol] 3.8 mmol/L Normal 3.5-5.1 [facility] Comment on above: Performed By: #### B MP #### [facility] [address] [place] [address] Dr. Kevin Sebastian Sodium [Moles/Vol] 140 mmol/L Normal 136-145 [facility] Comment on above: Performed By: #### B MP #### [facility] [address] [place] [address] Dr. Kevin Sebastian Urea nitrogen [Mass/Vol] 16.0 mg/dL Normal 7.0-18.0 [facility] Comment on above: Performed By: #### B MP #### [facility] [address] [place] [address] Dr. Kevin Sebastian Urea nitrogen/Creatinine [Mass ratio] 17.6 mg/mg Normal [facility] Comment on above: Performed By: #### B MP #### [facility] [address] [place] [address] Dr. Kevin Sebastian URINE MICROSCOPIC ONLYon BACTERIA SMALL Abnormal NONE SEEN [facility] Comment on above: Performed By: #### Bruna HOWELL UMICRO #### [facility] [address] [place] [address] Dr. Kevin Sebastian Bacteria identified Cx Nom (U) INDICATED Normal [facility] Comment on above: Performed By: #### JOMAR CLARKEICRO #### [facility] [address] [place] [address] Dr. Kevin Sebastian CAST NONE SEEN Normal NONE SEEN [facility] Comment on above: Performed By: #### Bruna HOWELL UMICRO #### [facility] [address] [place] [address] Dr. Kevin Sebastian Crystals LM Nom (Urine sed) NONE SEEN Normal NONE SEEN [facility] Comment on above: Performed By: #### Bruna HOWELL UMICRO #### [facility] [address] [place] [address] Dr. Kevin Sebastian Epithelial cells LM Ql (Urine sed) FEW Abnormal NONE SEEN /RARE [facility] Comment on above: Performed By: #### Bruna HOWELL UMICRO #### [facility] [address] [place] [address] Dr. Kevin Sebastian MUCOUS NONE SEEN Normal NONE SEEN [facility] Comment on above: Performed By: #### Bruna HOWELL UMICRO #### [facility] [address] [place] [id number] Dr. Kevin Sebastian RBC 2-5 Abnormal 0-2 [facility] Comment on above: Performed By: #### E RUR, UMICRO #### [facility] [address], [place] [address] Dr. Kevin Sebastian WBC 5-10 Abnormal NONE SEEN [facility] Comment on above: Performed By: #### E RUR, UMICRO #### [facility] [address], [place] [address] Dr. Kevin Sebastian Nonvisit Note - OTon 023 Nonvisit Note - OT Pt. cancelled today' s session as not feeling well. Normal [facility] CNPNon 07-05-2022 CNPN Telephone (NIQ) JESSICA GUTIERREZ ([id number]) 1975 F [place] Date Time Provider Department 07/05/22 JOSE HASSAN During your visit today, we recorded the following information about you: Zakiyajolie Mendoza 07/05/2022 1:29 PM Signed Called to schedule pt follow up in 2 months per provider request. LVM with appt details, sent mychart and reminder in the mail Allergies As of Date: 07/05/2022 Noted Allergy Reaction GADOLINIUM-CONTAINING CONTRAST ME*03/28/2018 10 - Anaphylaxis AMITRIPTYLINE HCL 12/14/2020 2 - Rash CABBAGE 03/28/2018 11 - Vomiting Date Reviewed: 02/07/2022 Reviewed by: Bettie Sebastian MA - Fully Assessed Reason for Visit: Appointment [[id number]] Cmt: Called to schedule pt follow up in 2 months per provider request. LVM with appt details, sent mychart and reminder in the mail Prescriptions as of 07/05/2022 - methocarbamol (ROBAXIN) 500 mg tablet Take one in the morning and two at night. - traMADol (ULTRAM) 50 mg tablet Take 1 tablet by mouth as needed. - rimegepant (NURTEC ODT) 75 mg disintegrating tablet Take 1 tablet by mouth once daily as needed. - potassium chloride (K-TAB) 10 mEq tablet Take 2 tablets by mouth twice daily. - fesoterodine (TOVIAZ) 4 mg Tb24 extended release tablet Take 1 tablet by mouth once daily. - linaCLOtide (LINZESS) 290 mcg capsule Take 1 capsule by mouth DAILY (6 AM). - metoclopramide HCl (REGLAN) 10 mg tablet Take 1 tablet by mouth three times daily before meals. - meclizine (ANTIVERT) 25 mg tab Take 1 tablet by mouth every 4 hours as needed (for dizziness.). - ascorbic acid, vitamin C, (VITAMIN C) 500 mg tablet Take 1 tablet by mouth once daily. - baclofen (LIORESAL) 20 mg tablet Take 1 tablet by mouth twice daily. - pregabalin (LYRICA) 150 mg capsule Take 1 capsule by mouth four times daily for 180 days. - clopidogrel (PLAVIX) 75 mg tablet clopidogrel 75 mg Tab Refills(s) 0 Start Date: 06/01/21 Status: Ordered - desvenlafaxine 100 mg Tb24 Take 100 mg by mouth. - diclofenac, EC, (VOLTAREN) 75 mg EC tablet Take by mouth. - docusate sodium (COLACE) 100 mg capsule Take by mouth. - famotidine (PEPCID) 40 mg tablet Take 40 mg by mouth. - fluticasone-vilanterol (BREO ELLIPTA) 100-25 mcg/dose inhaler INHALE 1 PUFF BY MOUTH ONCE DAILY - furosemide (LASIX) 20 mg tablet Take by mouth. - OXcarbazepine (TRILEPTAL) 300 mg tablet TAKE 1 AND 1/2 - 2 TABLETS BY MOUTH EVERYDAY - QUEtiapine (SEROQUEL) 100 mg tablet TAKE 1 TABLET BY MOUTH EVERYDAY AT BEDTIME - losartan (COZAAR) 25 mg tablet Take 25 mg by mouth once daily. takes twice daily. - SUMAtriptan (IMITREX) 100 mg tablet Take 100 mg by mouth as needed. - hyoscyamine sublingual (LEVSIN SL) 0.125 mg subl Dissolve 0.125 mg under the tongue as needed. - pantoprazole DR (PROTONIX) 40 mg tablet Take 1 tablet by mouth once daily. 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 just had sx and not feeling well and cancelled today's appointment. Normal [facility] Operative Reporton 3 Operative Report [id number]:127 Normal [facility] Patient Educationon 07-04-19 23 Patient Education Urology Suprapubic Catheter Home Guide A suprapubic catheter is a flexible tube that is used to drain urine from the bladder into a collection bag outside the body. The catheter is inserted into the bladder through a small opening in the lower abdomen, above the pubic bone (suprapubic area) and a few inches below your belly button (navel). A tiny balloon filled with germ-free (sterile) water helps to keep the catheter in place. The collection bag must be emptied at least once a day and cleaned at least every other day. The collection bag can be put beside your bed at night and attached to your leg during the day. You may have a large collection bag to use at night and a smaller one to use during the day. Your suprapubic catheter may need to be changed every 4?6 weeks, or as often as recommended by your health care provider. Healing of the tract where the catheter is placed can take 6 weeks to 6 months. During that time, your health care provider may change your catheter. Once the tract is well healed, you or a caregiver will change your suprapubic catheter at home. What are the risks? This catheter is safe to use. However, problems can occur, including: ? Blocked urine flow. This can occur if the catheter stops working, or if you have a blood clot in your bladder or in the catheter. ? Irritation of the skin around the catheter. ? Infection. This can happen if bacteria gets into your bladder. Supplies needed: ? Two pairs of sterile gloves. ? Paper towels. ? Catheter. ? Two syringes. ? Sterile water. ? Sterile cleaning solution. ? Lubricant. ? Collection bags. How to change the catheter 1. Drink plenty of fluids during the hours before you change the catheter. 2. Wash your hands with soap and water. If soap and water are not available, use hand behavioral psychologist. 3. Draw up sterile water into a syringe to have ready to fill the new catheter balloon. The amount will depend on the size of the balloon. 4. Have all of your supplies ready and close to you on a paper towel. 5. Lie on your back, sitting slightly upright so that you can see the catheter and opening. 6. Put on sterile gloves. 7. Clean the skin around the catheter opening using the sterile cleaning solution. 8. Remove the water from the balloon in the catheter using a syringe. 9. Slowly remove the catheter. If the catheter seems stuck, or if you have difficulty removing it: ? Do not pull on it. ? Call your health care provider right away. 10. Place the old catheter on a paper towel to discard later. 11. Take off the used gloves, and put on a new pair. 12. Put lubricant on the end of the new catheter that will go into your bladder. 13. Clean the skin around the catheter opening using the sterile cleaning solution. 14. Gently slide the catheter through the opening in your abdomen and into the tract that leads to your bladder. 15. Wait for some urine to start flowing through the catheter. 16. When urine starts to flow through the catheter, attach the collection bag to the end of the catheter. Make sure the connection is tight. 17. Use a syringe to fill the catheter balloon with sterile water. Fill to the amount directed by your health care provider. 18. Remove the gloves and wash your hands with soap and water. How to care for the skin around the catheter Follow your health care provider's instructions on caring for your skin. ? Use a clean washcloth and soapy water to clean the skin around your catheter every day. Pat the area dry with a clean paper towel. ? Do not pull on the catheter. ? Do not use ointment or lotion on this area, unless told by your health care provider. ? Check the skin around the catheter every day for signs of infection. Check for: ? Redness, swelling, or pain. ? Fluid or blood. ? Warmth. ? Pus or a bad smell. How to empty and clean the collection bag Empty the large collection bag every 8 hours. Empty the small collection bag when it is about ? full. Clean the collection bag every 2?3 days, or as often as told by your health care provider. To do this: 1. Wash your hands with soap and water. If soap and water are not available, use hand behavioral psychologist. 2. Disconnect the bag from the catheter and immediately attach a new bag to the catheter. 3. Hold the used bag over the toilet or another container. 4. Turn the valve (spigot) at the bottom of the bag to empty the urine. Empty the used bag completely. ? Do not touch the opening of the spigot. ? Do not let the opening touch the toilet or container. 5. Close the spigot tightly when the bag is empty. 6. Clean the used bag in one of the following methods: ? According to the display artist's instructions. ? As told by your health care provider. 7. Let the bag dry completely. Put it in a clean plastic bag before storing it. General tips ? Always wash your hands before (more content not included)... Normal [facility] Urology Office/Clinic Noteon 07-03-2022 Urology Office/Clinic Note History of Present Illness Tests reviewed: reviewed op note. I have reviewed the previous health record information and history for this patient from Dr. Greenwood. I have reviewed and verified the staff HPI to be accurate for this encounter. There have been no associated fever, chills, flank pain, or blood in the urine. Denies any urinary infections since last encounter. Review of Systems ROS - Provider Constitutional: denies weight loss, denies hot flashes. Eyes: denies eye problems. Gastrointestinal: denies nausea, denies vomiting. Cardiovascular: denies chest pain or angina. Integumentary: no dryness Musculoskeletal: denies musculoskeletal symptoms. ENMT: denies otolaryngeal symptoms. Respiratory: no shortness of breath. Heme/Lymph: denies easy bleeding tendency, denies easy bruising tendency. Psychiatric: no confusion, no anxiety. Genitourinary: See HPI. Physical Exam General Appearance: alert , no acute distress, well nourished, well developed female. Genitourinary: bladder nonpalpable, no flank pain. SP tube wound clean and dry. Abx ointment applied. Assessment/Plan Pt is legally blind. 1. 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 Pt is legally blind, unable to CIC. Presented to [facility] ER on 02/28/22 and 05/28/22 due to plugged cath. S/p Cysto, difficult trocar SP tube placement, fulguration of bleeding points 07/02/22. Follow up one month for SP tube change. or sooner if needed. Pt understands and agrees with plan. To call by end of week with update. The suprapubic tube was placed with difficulty. The patient is aware of this. She has been leaking a significant amount of urine out the suprapubic track which is obviously not mature. I released the sutures that were tied to the Márquez catheter which most likely have been too tight and may be blocking off urine flow. She is to call the office by tomorrow or the day after with a clinical update. Provided she is better we will see her back in about 1 month with a suprapubic tube change for the first time. She has no sutures in place at this point. SP tube draining clear (less than 250 in the bag) Follow-up With When Contact Information CHERELLE ROSS, Yaakov Caicedo, URL [address] [address]- Additional Instructions: Patient Education Suprapubic Catheter Home Guide Honey Mari, personally scribed for Dr. Greenwood on 07/03/2022 14:20:56. . Documentation recorded by the scribe, Honey Bean, accurately reflects the services(s) I performed and decisions made by me. Authenticated by Dr. Greenwood on 07/03/2022 15:01:34. Problem List/Past Medical History Ongoing Abnormality of gait Acute cerebrovascular accident (CVA) Anxiety Cervical disc disease Diastasis recti Gastroparesis GERD - Gastro-esophageal reflux disease Glaucoma History of migraine. 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 Nuclear sclerosis Laurinburg's syndrome Poor short term memory Reflex sympathetic dystrophy Right ovarian cyst Sensorineural hearing loss of left ear with normal hearing on right side Spastic hemiparesis affecting dominant side Transverse myelopathy syndrome Historical Abdominal pressure Dehydration Procedure/Surgical History Arthroscopy of knee (02/26/2020), Cystourethroscopy with dilation of urethral stricture (03/31/2018), Urodynamics (03/31/2018), Spinal cord stimulator implant (02/12/2018), left lumbar sympathetic plexus block (10/16/2017), Left sympathetic plexus block (07/24/2017), Arthroscopy of knee, Colonoscopy, EGD - Esophagogastroduodenoscopy, L salpingooopherectomy, Right Eye Tubal Shunt, spinal cord stimulator trial, Vaginal hysterectomy. Medications Azopt 0.01 Susp-Opth, 1 drop(s), OPTH, QID Breo Ellipta 100 mcg-25 mcg inhalation powder, 1 puff(s), Inhalation, Daily clopidogrel 75 mg Tab, 75 mg= 1 tab(s), Oral, Daily Combigan ophthalmic solution, 1 drop(s), Eye-Right, TID diclofenac sodium 75 mg Oral EC Tab, 75 mg= 1 tab(s), Oral, BID dicyclomine 20 mg Tab, 20 mg= 1 tab(s), Oral, TID hyoscyamine Sublingual, 0.25 mg= 2 tab(s), SubLingual, QID, PRN Lasix 20 mg Tab, 20 mg= 1 tab(s), Oral, Daily Linzess 290 mcg oral capsule, 290 mcg= 1 cap(s), Oral, Daily losartan, 25 mg, Oral, BID Lumigan 0.01% ophthalmic solution, 1 drop(s), OPTH, qPM meclizine 25 mg Tab, 25 mg= 1 tab(s), Oral, q4hr, PRN metoclopramide 10 mg Tab, 10 mg= 1 tab(s), Oral, QIDACHS oxcarbazepine 300 mg Tab, 600 mg= 2 tab(s), Oral, Bedtime Pepcid 40 mg Tab, 40 mg= 1 tab(s), Oral, Once a day (at bedtime) potassium CITRATE 10 mEq ER Tab, 20 mEq= 2 tab(s), Oral, BID, 3 refills Prednisol 1% ophthalmic (more content not included)... Normal [facility] Comment on above: Result Comment: Elec tronically Signed By: Yaakov GREENWOOD MD\.br\Date and Time Signed: 07/03/22 15:03 EDT\.br\Electronically Co-Signed By: Honey Bean\.br\Date and Time Co-Signed: 07/03/22 14:21 EDT Lab Reportson 06-25-2022 Lab Reports [id number]:127 [facility] Lab Reports [id number]:127 [facility] Lab Reports [id number]:127 [facility] RAD - MISCon 06-25-2022 RAD - MISC [id number]:127 [facility] Activated partial thrombopla stin time (aPTT) in platelet poor plasma by coagulation aOrdered By: Yaakov Greenwood on 06-19-2022 aPTT Coag (PPP) [Time] 28.8 s 25.1-36.5 [facility] Basic Metabolic Panelon Anion gap [Moles/Vol] 17.0 mmol/L High 6.0-15.0 [facility] Comment on above: Performed By: #### P T, PTT, CBC, BMP #### [address] Calcium [Mass/Vol] 9.0 mg/dL Normal 8.6-10.3 [facility] Comment on above: Result Comment: PERF ORMED BY: [place] [address] PATHOLOGIST SENIOR STACK ENGINEER REBEKAH HENRY M.D. Performed By: #### P T, PTT, CBC, BMP #### [facility] [address] [place] [address] [place] Chloride [Moles/Vol] 97 mmol/L Low 98-107 [facility] Comment on above: Performed By: #### P T, PTT, CBC, BMP #### [facility] [address] CO2 [Moles/Vol] 27.1 mmol/L Normal 21.0-31.0 [facility] Comment on above: Performed By: #### P T, PTT, CBC, BMP #### [address] Creatinine [Mass/Vol] 0.90 mg/dL Normal 0.60-1.20 [facility] Comment on above: Performed By: #### P T, PTT, CBC, BMP #### [place] [address] [place] GFR/1.73 sq M.predicted MDRD (S/P/Bld) [Vol rate/Area] mL/min/{1.73_m2} Normal [facility] Comment on above: Performed By: #### P T, PTT, CBC, BMP #### [address] Glucose [Mass/Vol] 98 mg/dL Normal 70-100 [facility] Comment on above: Result Comment: [place] Glucose Reference Range is dependent on time and content of last meal. Glucose of more than 200 mg/dL in a nonstressed, ambulatory subject supports the diagnosis of Diabetes Mellitus. ADA recommended reference range Performed By: #### P T, PTT, CBC, BMP #### [facility] [address] [place] [address] [place] Potassium [Moles/Vol] 4.1 mmol/L Normal 3.5-5.1 [facility] Comment on above: Performed By: #### P T, PTT, CBC, BMP #### [facility] [address] [place] [address] [place] Sodium [Moles/Vol] 137 mmol/L Normal 136-145 [facility] Comment on above: Performed By: #### P T, PTT, CBC, BMP #### [facility] [address] [place] [address] [place] Urea nitrogen [Mass/Vol] 17 mg/dL Normal 7-25 [facility] Comment on above: Performed By: #### P T, PTT, CBC, BMP #### [facility] [address] Basophils Auto (Bld) [#/Vol] Ordered By: Yaakov Greenwood on 06-19-2022 Basophils (Bld) [#/Vol] 0.1 10*3/uL 0.0-0.2 [facility] Basophils/100 WBC Auto (Bld) Ordered By: Yaakov Greenwood on 06-19-2022 Basophils/100 WBC (Bld) 0.7 % . [facility] Calcium [Mass/volume] in Ser um or PlasmaOrdered By: Yaakov Greenwood on 06-19-2022 Calcium [Mass/Vol] 9.0 mg/dL 8.6-10.3 [facility] Carbon dioxide, total [Moles /volume] in Serum or PlasmaOrdered By: Yaakov Greenwood on 06-19-2022 CO2 [Moles/Vol] 27.1 mmol/L 21.0-31.0 [facility] Chloride [Moles/volume] in S kenna or PlasmaOrdered By: Yaakov Greenwood on 06-19-2022 Chloride [Moles/Vol] 97 mmol/L 98-107 [facility] Complete Blood Count Auto Di ffon 06-19-2022 Basophils (Bld) [#/Vol] 0.1 10*3/uL Normal 0.0-0.2 [facility] Comment on above: Result Comment: PERF ORMED BY: [facility] [address] [facility] [place] [address] PATHOLOGIST SENIOR STACK ENGINEER REBEKAH HENRY M.D. Performed By: #### P T, PTT, CBC, BMP #### [address] Basophils/100 WBC (Bld) 0.7 % Normal . [facility] Comment on above: Performed By: #### P T, PTT, CBC, BMP #### [address] Eosinophils (Bld) [#/Vol] 0.1 10*3/uL Normal 0.0-0.45 [facility] Comment on above: Performed By: #### P T, PTT, CBC, BMP #### [address] Eosinophils/100 WBC (Bld) 1.2 % Normal . [facility] Comment on above: Performed By: #### P T, PTT, CBC, BMP #### [address] Erythrocyte distribution width (RBC) [Ratio] 17.7 % High 11.9-15.3 [facility] Comment on above: Performed By: #### P T, PTT, CBC, BMP #### [address] Hematocrit (Bld) [Volume fraction] 34.7 % Normal 34.0-46.4 [facility] Comment on above: Performed By: #### P T, PTT, CBC, BMP #### [address] Hemoglobin (Bld) [Mass/Vol] 11.0 g/dL Low 11.8-15.4 [facility] Comment on above: Performed By: #### P T, PTT, CBC, BMP #### [address] Lymphocytes (Bld) [#/Vol] 2.6 10*3/uL Normal 1.00-4.8 [facility] Comment on above: Performed By: #### P T, PTT, CBC, BMP #### [place] [address] [place] Lymphocytes/100 WBC (Bld) 26.8 % Normal . [facility] Comment on above: Performed By: #### P T, PTT, CBC, BMP #### [address] MCH (RBC) [Entitic mass] 24.2 pg Low 24.7-34.3 [facility] Comment on above: Performed By: #### P T, PTT, CBC, BMP #### [address] MCV (RBC) [Entitic vol] 76.8 fL Low 80-100 [facility] Comment on above: Performed By: #### P T, PTT, CBC, BMP #### [address] Mean Corpuscular HGB Conc 31.6 g/dL Low 32.0-35.0 [facility] Comment on above: Performed By: #### P T, PTT, CBC, BMP #### [address] Monocytes (Bld) [#/Vol] 0.6 10*3/uL Normal 0.0-0.8 [facility] Comment on above: Performed By: #### P T, PTT, CBC, BMP #### [address] Monocytes/100 WBC (Bld) 6.1 % Normal . [facility] Comment on above: Performed By: #### P T, PTT, CBC, BMP #### [address] Neutrophils (Bld) [#/Vol] 6.4 10*3/uL Normal 1.8-7.7 [facility] Comment on above: Performed By: #### P T, PTT, CBC, BMP #### [address] Neutrophils/100 WBC (Bld) 65.2 % Normal . [facility] Comment on above: Performed By: #### P T, PTT, CBC, BMP #### [facility] [address] NRBC% 0.1 /100{WBC} Normal 0-0.5 [facility] Comment on above: Performed By: #### P T, PTT, CBC, BMP #### [facility] [address] Platelet mean volume (Bld) [Entitic vol] 9.5 fL Normal 6.3-10.7 [facility] Comment on above: Performed By: #### P T, PTT, CBC, BMP #### [facility] [address] [place] [address] Platelets (Bld) [#/Vol] 242 10*3/uL Normal 150-450 [facility] Comment on above: Performed By: #### P T, PTT, CBC, BMP #### [address] RBC (Bld) [#/Vol] 4.53 10*6/uL Normal 3.60-5.00 [facility] Comment on above: Performed By: #### P T, PTT, CBC, BMP #### [address] WBC (Bld) [#/Vol] 9.9 10*3/uL Normal 3.8-11.6 [facility] Comment on above: Performed By: #### P T, PTT, CBC, BMP #### [facility] [address] [place] [address] Creatinine [Mass/volume] in Serum or PlasmaOrdered By: Yaakov Greenwood on 06-19-2022 Creatinine [Mass/Vol] 0.90 mg/dL 0.60-1.20 [facility] ECG 12 lead ECGon 06-19-2022 ECG 12 lead ECG [facility] [place] [address] [place] [address] Electrocardiograph Report Signed Patient: Jessica Gutierrez MR#: [id number] 46 : 1975 Acct:[id number] Age/Sex: 47 / F ADM Date: 06/19/22 Loc: PS Room: Type: [facility] Attending Dr: Yaakov Greenwood MD Ordering Provider: Yaakov Greenwood MD Date of Service: 06/19/2204/12/1121 ECG/ECG 12 lead ECG: PST Copies to: Test Reason : Blood Pressure : / mmHG Vent. Rate : 077 BPM Atrial Rate : 077 BPM P-R Int : 156 ms QRS Dur : 074 ms QT Int : 368 ms P-R-T Axes : 052 -02 034 degrees QTc Int : 416 ms Normal sinus rhythm Low voltage QRS Abnormal ECG No previous ECGs available Confirmed by SHANTANU ROSS [facility], TOMÁS ([id number]) on 06/19/2022 3:55:23 PM Referred By: CHERELLE Electronically Signed By:TOMÁS FOURNIER MD [facility] Transcribed By: COOPER Signed By Tomás Fournier MD, FACC 06/19/22 1555 Normal [facility] Eosinophils Auto (Bld) [#/Vo l]Ordered By: Yaakov Greenwood on 06-19-2022 Eosinophils (Bld) [#/Vol] 0.1 10*3/uL 0.0-0.45 [facility] Eosinophils/100 WBC Auto (Bl d)Ordered By: Yaakov Greenwood on 06-19-2022 Eosinophils/100 WBC (Bld) 1.2 % . [facility] Erythrocyte distribution wid th Auto (RBC) [Ratio]Ordered By: Yaakov Greenwood on 06-19-2022 Erythrocyte distribution width (RBC) [Ratio] 17.7 % 11.9-15.3 [facility] Glucose [Mass/volume] in Ser um or PlasmaOrdered By: Yaakov Greenwood on 06-19-2022 Glucose [Mass/Vol] 98 mg/dL 70-100 [facility] Comment on above: ADA recommended refe rence rangeRandom Glucose Reference Range is dependent on time and content of last meal. Glucose of more than 200 mg/dL in a nonstressed, ambulatory subject supports the diagnosis of Diabetes Mellitus. Hematocrit Auto (Bld) [Volum e fraction]Ordered By: Yaakov Greenwood on 06-19-2022 Hematocrit (Bld) [Volume fraction] 34.7 % 34.0-46.4 [facility] Hemoglobin [Mass/volume] in BloodOrdered By: Yaakov Greenwood on 06-19-2022 Hemoglobin (Bld) [Mass/Vol] 11.0 g/dL 11.8-15.4 [facility] Leukocytes [#/volume] correc anthony for nucleated erythrocytes in Blood by Automated counOrdered By: Yaakov Greenwood on 06-19-2022 WBC corrected for nucl RBC Auto (Bld) [#/Vol] 9.9 10*3/uL 3.8-11.6 [facility] Lymphocytes Auto (Bld) [#/Vo l]Ordered By: Yaakov Greenwood on 06-19-2022 Lymphocytes (Bld) [#/Vol] 2.6 10*3/uL 1.00-4.8 [facility] Lymphocytes/100 WBC Auto (Bl d)Ordered By: Yaakov Greenwood on 06-19-2022 Lymphocytes/100 WBC (Bld) 26.8 % . [facility] [facility] MCH Auto (RBC) [Entitic mass ]Ordered By: Yaakov Greenwood on 06-19-2022 MCH (RBC) [Entitic mass] 24.2 pg 24.7-34.3 [facility] MCHC Auto (RBC) [Mass/Vol]Or dered By: Yaakov Greenwood on 06-19-2022 MCHC (RBC) [Mass/Vol] 31.6 g/dL 32.0-35.0 [facility] MCV Auto (RBC) [Entitic vol] Ordered By: Yaakov Greenwood on 06-19-2022 MCV (RBC) [Entitic vol] 76.8 fL 80-100 [facility] Monocytes Auto (Bld) [#/Vol] Ordered By: Yaakov Greenwood on 06-19-2022 Monocytes (Bld) [#/Vol] 0.6 10*3/uL 0.0-0.8 [facility] Monocytes/100 WBC Auto (Bld) Ordered By: Yaakov Greenwood on 06-19-2022 Monocytes/100 WBC (Bld) 6.1 % . [facility] Neutrophils Auto (Bld) [#/Vo l]Ordered By: Yaakov Greenwood on 06-19-2022 Neutrophils (Bld) [#/Vol] 6.4 10*3/uL 1.8-7.7 [facility] Neutrophils/100 WBC Auto (Bl d)Ordered By: Yaakov Greenwood on 06-19-2022 Neutrophils/100 WBC (Bld) 65.2 % . [facility] No Panel InformationOrdered By: Yaakov Greenwood on 06-19-2022 Estimated GFR (CKD-EPI) > 60.0 mL/Min [facility] Creatinine Clearance (Chem N/A [facility] Nucleated erythrocytes [Pres ence] in Blood by Automated countOrdered By: Yaakov Greenwood on 06-19-2022 Nucleated RBC Auto Ql (Bld) 0.1 /100{WBC} 0-0.5 [facility] Partial Thromboplastin Timeo n 06-19-2022 aPTT Coag (Bld) [Time] 28.8 s Normal 25.1-36.5 [facility] Comment on above: Result Comment: PERF ORMED BY: [place] [address] PATHOLOGIST SENIOR STACK ENGINEER REBEKAH HENRY M.D. Performed By: #### P T, PTT, CBC, BMP #### [address] Platelet mean volume Auto (B ld) [Entitic vol]Ordered By: Yaakov Greenwood on 06-19-2022 Platelet mean volume (Bld) [Entitic vol] 9.5 fL 6.3-10.7 [facility] Platelet poor plasma interna tional normalized ratio (INR) by coagulation assay (relatOrdered By: Yaakov Greenwood on 06-19-2022 INR Coag (PPP) [Relative time] 1.0 {INR} Normal [facility] Comment on above: INR Therapeutic Rang e A) Pre- and Peroperative OAT started two weeks before surgery. NOT HIP SURGERY: 1.5 - 2.5 HIP SURGERY: 2 - 3B) Primary and secondary prevention of venous THROMBOSIS: 2 - 3C) Active venous thrombosis, pulmonary embolismand prevention of recurrent venous thrombosis: 2 - 3D) Prevention of arterial thromboembolismincluding patients with mechanical heart valves: 3 - 4.5 Result Comment: INR Therapeutic Range A) Pre- and Peroperative OAT started two weeks before surgery. NOT HIP SURGERY: 1.5 - 2.5 HIP SURGERY: 2 - 3 B) Primary and secondary prevention of venous THROMBOSIS: 2 - 3 C) Active venous thrombosis, pulmonary embolism and prevention of recurrent venous thrombosis: 2 - 3 D) Prevention of arterial thromboembolism including patients with mechanical heart valves: 3 - 4.5 Performed By: #### P T, PTT, CBC, BMP #### [facility] [address] [id number] [facility] Platelets Auto (Bld) [#/Vol] Ordered By: Yaakov Greenwood on 06-19-2022 Platelets (Bld) [#/Vol] 242 10*3/uL 150-450 [facility] Potassium [Moles/volume] in Serum or PlasmaOrdered By: Yaakov Greenwood on 06-19-2022 Potassium [Moles/Vol] 4.1 mmol/L 3.5-5.1 [facility] Prothrombin Time INROrdered By: Yaakov Greenwood on 06-19-2022 PT Coag (PPP) [Time] 11.9 s Normal 9.0-12.9 [facility] Comment on above: Performed By: #### P T, PTT, CBC, BMP #### [facility] [address] [id number] [facility] RBC Auto (Bld) [#/Vol]Ordere d By: Yaakov Greenwood on 06-19-2022 RBC (Bld) [#/Vol] 4.53 10*6/uL 3.60-5.00 [facility] Serum or plasma anion gap de terminationOrdered By: Yaakov Greenwood on 06-19-2022 Anion gap [Moles/Vol] 17.0 mmol/L 6.0-15.0 [facility] Sodium [Moles/volume] in Ser um or PlasmaOrdered By: Yaakov Greenwood on 06-19-2022 Sodium [Moles/Vol] 137 mmol/L 136-145 [facility] Urea nitrogen [Mass/volume] in Serum or PlasmaOrdered By: Yaakov Greenwood on 06-19-2022 Urea nitrogen [Mass/Vol] 17 mg/dL 7-25 [facility] WBC Auto (Bld) [#/Vol]Ordere d By: Yaakov Greenwood on 06-19-2022 WBC (Bld) [#/Vol] 9.9 10*3/uL 3.8-11.6 [facility] XR chest 2V*on 06-19-2022 XR chest 2V* [facility] [address] [address] XRay Report Signed Patient: Jessica Gutierrez MR#: [id number] 46 : 1975 Acct:[id number] Age/Sex: 47 / F ADM Date: 06/19/22 Loc: PS Room: Type: [facility] Attending Dr: Yaakov Greenwood MD Copies to: Yaakov Greenwood MD Ordering Provider: Yaakov Greenwood MD Date of Service: 06/19/22 XR/XR chest 2V*: PST Chest 2 views CLINICAL HISTORY: Preop suprapubic catheter placement. COMPARISON: None FINDINGS: Heart is at the upper limits of normal in size. Lungs are clear. No free air. XR/XR chest 2V* IMPRESSION: BORDERLINE CARDIOMEGALY. NO ACUTE PROCESS. Impression dictated by: Sam Alvares Jr., D.OMonique06/19/2022 4:19 PM Dictation Location: [place] [address] Transcribed By: [facility] 06/19/22 161 Dictated By: Sam Alvares Jr, DO 06/19/22 1618 Signed By: 06/19/22 1619 [facility] ED Note-Physicianon 06-14-19 ED Note-Physician [id number]#[id number]:127 Normal [facility] Outside Records Officeon Outside Records Office [id number]#[id number]:127 Normal [facility] Patient Educationon 06-12-19 Patient Education Urology Neurogenic Bladder Neurogenic bladder is a bladder control disorder. It is usually caused by problems with the nerves that control the bladder. The brain sends signals through the spinal cord to the muscles in the bladder that start and stop urine flow. With neurogenic bladder, the nerves and muscles do not work together the way they should. This condition may make the bladder overactive, meaning you have trouble holding urine. In other cases, it may make the bladder underactive. This means that you have trouble passing urine. What are the causes? This condition may be caused by nerve damage or a condition that disrupts the signals from your brain to your bladder. Many things can cause these nerve problems, including: ? A disease that affects the nervous system, such as: ? Alzheimer's disease. ? Cerebral palsy. ? Multiple sclerosis. ? Diabetes. ? Parkinson's disease. ? Damage to your brain or spinal cord. This can come from: ? Trauma. ? Tumors. ? Infection. ? Surgery. ? Alcohol abuse. ? Stroke. ? A congenital disability that affects the spinal cord. What increases the risk? You are more likely to develop this condition if you have nerve damage or a nerve disorder. What are the signs or symptoms? Signs and symptoms of this condition include: ? Leaking or gushing urine (incontinence). ? A sudden, strong urge to pass urine (urgency). ? Frequent urination during the day and night. ? Being unable to empty your bladder completely (urinary retention). ? Frequent urinary tract infections. How is this diagnosed? This condition may be diagnosed based on: ? Your symptoms and medical history. ? A physical exam. ? Records from a bladder diary. You may be asked to keep a record or log of your bladder symptoms and the times that you urinate. You may also have tests, such as: ? A urine test to check for infection. ? A bladder scan after you urinate to see how much urine is left in your bladder. ? Tests to measure your urine flow and see how well the flow is controlled (urodynamic tests). ? A procedure that uses a small device with a camera to look through your urethra into your bladder (cystoscopy). A health care provider who specializes in the urinary tract (urologist) may do this test. ? Imaging tests of your brain or spine, such as MRI or CT scan. How is this treated? Treatment for this condition depends on the cause and the symptoms that you have. Work closely with your health care provider to find the treatments that will improve your quality of life. Treatment options include: ? Learning ways to control when you urinate, such as: ? Urinating at scheduled times. ? Training yourself to delay urination. ? Exercises to strengthen the muscles that control urine flow (Kegel exercises). ? Avoiding foods or drinks that make your symptoms worse. ? Taking medicines to: ? Stimulate an underactive bladder. ? Relax an overactive bladder. ? Treat a urinary tract infection. ? Learning how to use a thin tube (catheter) to empty your bladder. A catheter is a hollow tube that you pass through your urethra. ? Procedures to stimulate the nerves that control your bladder. ? Surgery, if other treatments do not help. Follow these instructions at home: Lifestyle ? Keep a bladder diary to find out which foods, liquids, or activities make your symptoms worse. ? Use your bladder diary to schedule bathroom trips. If you are away from home, plan to be near a bathroom when your schedule says you will need one. ? Limit beverages that stimulate urination. These include soda, coffee, and tea. ? After urinating, wait a few minutes and try again. ? Make sure you urinate just before you leave the house and just before you go to bed. Kegel exercises Do Kegel exercises to strengthen the muscles that control the passing of urine. These muscles are the ones you use to try to hold urine when you need to urinate. To do Kegel exercises: 1. Squeeze your pelvic floor muscles tight, as if you are trying to stop the flow of urine. You should feel a tight lift in your rectal area. If you are female, you should also feel a tightness in your vaginal area. Keep your stomach, buttocks, and legs relaxed. 2. Hold the muscles tight for 5?10 seconds. 3. Relax your muscles for the same amount of time. 4. Repeat 10 times. Repeat this exercise 3 times a day or as many times as told by your health care provider. General instructions ? Take vumv-sns-wrsimpn and prescription medicines only as told by your health care provider. ? Keep all follow-up visits. This is important. Contact a health care provider if: ? You are having a hard time controlling your symptoms. ? Your symptoms are getting worse. ? You have signs of a urinary tract infection. These may include: ? A burning feeling when you urinate. ? Fever or chills. ? Cloudy or bloody urine. (more content not included)... Normal [facility] Pre-Certification Formon Pre-Certification Form [id number]#[id number]:127 Normal [facility] Urology Office/Clinic Noteon 06-11-2022 Urology Office/Clinic Note Chief Complaint Discuss S/P tube change HPI Staff This is a 47 year old female here to discuss S/P tube catheter placement. Previous DX: hypotonic neurogenic bladder and urinary retention. Last catheter change was 04/30/22. Pt. states she was at [facility] ER on 05/28/22 due to catheter not draining and catheter was changed in ER. Pt. states she has had clot and sediment in the catheter tube. Pt. states now taking Oxybutynin 5mg and states not working as well as Toviaz. Pt. states Toviaz her insurance will not cover it. History of Present Illness I have reviewed and verified the staff HPI to be accurate for this encounter. Review of Systems PHQ Score Initial Depression Screen Score: 0 ROS - Provider Constitutional: denies weight loss, denies hot flashes. Eyes: denies eye problems. Gastrointestinal: denies nausea, denies vomiting. Cardiovascular: denies chest pain or angina. Integumentary: no dryness Musculoskeletal: denies musculoskeletal symptoms. ENMT: denies otolaryngeal symptoms. Respiratory: no shortness of breath. Heme/Lymph: denies easy bleeding tendency, denies easy bruising tendency. Psychiatric: no confusion, no anxiety. Genitourinary: denies vaginal discharge, denies incontinence, denies dysuria, denies hematuria, denies urinary frequency, denies amenorrhea, denies menorrhagia, denies abnormal bleeding, denies pelvic pain, denies genital sores, and denies decreased libido. Physical Exam Vitals & Measurements HT: 65 in HT: 164 cm WT: 91 kg WT: 200.2 lb BMI: 33.83 General Appearance: alert , no acute distress, well nourished, well developed female. Genitourinary: bladder nonpalpable, no flank pain. Assessment/Plan 1. Hypotonic neurogenic bladder (N31.9: Neuromuscular dysfunction of bladder, unspecified) Pt had a mini stroke and has been getting cath changes monthly. Last cath change 05/28/2022 at [facility] Pt is legally blind and cannot CIC. Was seen at [facility] ER on 02/28/2022 and 05/28/2022 due to her cath plugging up. Pt is interested in getting a Suprapubic cath placed due to wanting to plug the cath for physical therapy. Discussed with pt that she can plug her Márquez cath for physical therapy. The risks and benefits of placing a Suprapubic cath were discussed IO today. Discussed that since pt has been having problems with her cath plugging up we can do a Cystoscopy. Pt would like to move forward with placement of Suprapubic cath. Risks and Benefits were discussed with the patient. These include bleeding, infection, pain, and need for additional procedures. Pre-op consent reviewed with and obtained from patient. The patient has a history of long-term indwelling Márquez catheter and has been having more difficulties with the catheter clogging up. This is despite being on potassiums citrate as well. We discussed all the options including the pros and cons of a suprapubic catheter. I stressed the importance to her that changing to a suprapubic tube does not necessarily prevent complications of indwelling catheters including recurrent infections. She understands the risk of anesthesia. She understands the risk of being off aspirin and Plavix in preparation for the procedure. She wants to proceed with a suprapubic tube placement.. LMA anesthesia, which could lead to Gen. anesthesia. Follow-up With When Contact Information CHERELLE ROSS, Yaakov Caicedo, URL [address] [place], [place] [id number]- Additional Instructions: Patient Education Neurogenic Bladder Camila Mari , personally scribed for Dr. Greenwood on 06/11/2022 09:51:31. . Documentation recorded by the scribCamila wellington MA, accurately reflects the services(s) I performed and decisions made by me. Authenticated by Dr. Greenwood on 06/11/2022 09:53:53. Problem List/Past Medical History Ongoing Abnormality of gait Acute cerebrovascular accident (CVA) Anxiety Cervical disc disease Diastasis recti Gastroparesis GERD - Gastro-esophageal reflux disease Glaucoma History of migraine. 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 Nuclear sclerosis Laurinburg's syndrome Poor short term memory Reflex sympathetic dystrophy Right ovarian cyst Sensorineural hearing loss of left ear with normal hearing on right side Spastic hemiparesis affecting dominant side Transverse myelopathy syndrome Historical Abdominal pressure Dehydration Procedure/Surgical History Arthroscopy of knee (02/26/2020), Cystourethroscopy with dilation of urethral stricture (03/31/2018), Urodynamics (03/31/2018), Spinal cord stimulator implant (02/12/2018), left lumbar sympathetic plexus block (10/16/2017), Left sympathetic plexus block (07/24/2017), Arthroscopy of knee, Colonoscopy, EGD - Esophagogastroduodenoscopy, L salpingooopherectomy (more content not included)... Normal [facility] Comment on above: Result Comment: Elec tronically Signed By: CHERELLE ROSS, Yaakov Caicedo\.br\Date and Time Signed: 06/11/22 09:55 EDT\.br\Electronically Co-Signed By: Camila Costello MA\.br\Date and Time Co-Signed: 06/11/22 09:51 EDT Coding Summary.on 05-31-2022 Coding Summary. CD:[id number] Ww+PGhlY WQ+OE7HCZZvL59ixYLcaZ6iX2BAB XnITekjCLDBLNlJYoUwljPuZZ3fd XNjZXJu IC8+KX9qZAPzTicisVUsc6U0xZB8 Z68nob7aGAmawDB4CSCaRaCkniex t6qswOx1LUylZfidCmVc OTAyvQ45BNX5qM22Xq79fSYnzWVb k3balTc4ZlCxIFWyNPY1sFlcCTng z6TsRJYhI65ibTVvg1S1 VENfvHjrtUStLoWebOQ7jW8kREdg squzz0iurcdjShi8lk64rQAxz1B8 qBV3W3MchwO1GJRpxHWz WmyaxNEDnA2jzhyjx4okxssdOuVb FQMyYVn0XBa0GAFilGitAxCvRR63 ILN9CIQucaYoL6GcXBFj fPjwSpV5q1M6Dw9QQ0QZItfxN2GG TUFSWTwvdGQ+KV12ax58H5LwFfwe Bby1TDEuEHR8pPF6vA1d OIQqHThwy5W2vDK5K7ExvuZmnu6y t2btXENcEGzqE00rjDKfq9S9QHIp jHF6SKWytNzqPfQnmK26 Oyc+LXMflVlkj8FaKmiqu0dsq2qy wDs5HflaKTVjznCmgHynJTK8g2Fo Cz6gYDArcHI8iJP0qK9j HiKrIvC0DYptE536VsGnjBPfCvms B73yF6JfqTF+MFHhNgn1OEDgfFze BX3sN7CaRAQiibqldWEt wTbhFM2cUBXwkmxmWREyqT7bNVSo T0v3EvMiYsV3VFeqG4KzKBUdvwkn Kc02jU4nGhLaKkG3QTdg W1PpftB0QHKhzZBzTUtqGZK9L91w n5M8BOYeEQGsDPT0uDG8nL3lpMua bjogbGVmdDsgdmVydGlj LDgqBVbvG884TBUrzLgtAuRrOWkf ZyBEYXRlOiAgMDQvMTMvMjAyMzwv dGQ+KAXrDDK1lWojAGKg eOMzYQclAf6exFxkgCxpGB3vDRDo kkymPWIegZ9rDHIbjAVbwIotXV3k AJXknctem884FbQhDXT5 JTNwoVTbP1EjtJ1rMoXtASUwMDFx S3VcbVPfCCkqH257ABjnKvK9HLBp giMyV6InGUBwmCkuCcI3 q0T2Oq5Oz7XfklwvQ2UexYLeCbEa KsjsJMk7A0OwAnsnxBC+GG80JUWg NG57MHb2DVG4vJfzSFht LKGsR3MofP6yGsIiWRMwLUXjPmd+ PHRhYmxlIHdpZHRoPScxMDAlJyBz uHpqKP9uEr2dRYLmCIDh hXqpbNHbFuCpd5juXSBmSEjnYQ8r pBkiA5RguNM5QUGmr8c4Hj25H69v L0DwpEM+CXZzxLV6uZG5 zV9rCoNmFmE1VKrkJ255KwCihPFr Xniyx2loc3jugBl1GeL4OKLpouVv fNkiUPL0b5RtVo91I43t TBpxBAHwILYsURWdPXZfeNpjdn5h xW3zEw3+NVBviKJ6tKY7tJ1sBhLd GuU5IWdmL285AvEkxTHk Lwzcq1woo7payVg0ZaIxYFJejdEz aKccISZ1l8CaSk16R6RpvVbns8Yi Hua3xb52rUIhx2N7yLC0 F8ImJYQadiklqZVrfMbdKM4gDBIy wbjjTJZpsC5zGZDdZ2i6MkSnNgS3 LOmsW2HvneB1DMOczHOf IJGkwBKFdQ2kdtaco2slpzdrYuTw DRKaREg6FJr1RWYkfOanRxGpIZG4 VgR3DYI6tYFpyC9vyHfw ccllyV3kRxd+ODA5dLRndVRNUM7u OjwvdGQ+EHXrYCX3wQkzOGzcKGLg uQ6wBCPhR0y4BcUwIyY4 CVlzC7HnbtW1MDRqdRWeLXWikCUD lS7dbbytx0lhwdtlDqSbOINwEAi1 ICd4MIRmnYwsEqGiJAH5 WxH9EBW5kSElaY0zqFinrcufcA0k Oyc+WptfuCacUCG4IXb5R0ZqZfq3 UVYuxJwaDG7urPXnIEbe Pe4txVusnHnuYO4qJQAvuyego363 VbAbd4luICAbqOBbXCagARA1R70a y0V5YXCmRXFpHNB6jVV4 rK1fwHfrnxmxvIXqsTbbmgGtvIwc IPajLJrsU102WJFwmIbiSfWhOOs2 O9DbOmw8VUCofEdfIQ6k wMOjFXjkCv1rtWsbgZsxZH7tJPOw gubyw437DmLkl4gnWLArcBTlHOqw HPW8X64st1I1VGAhCDEn SIN0qYK7bM0pdVjznhyouRIiwNif myAqqOwlDFdeRScgA347AZTuoNcm UhDzgEn1C7GnRzk4PNGe aHloEB8gxVOgKKxjIg8dgIrdzVrv AD6eUUFysrlzv795JkBfv1qoOILc bVZfLZhyASA2W21rs5A3 UPVwRCBwEXT8sSX1cH6gaKdziiic wZPgwLstttCrsJsoTMqsUGtkH518 IHRvcDsnPlBhdGllbnQg DAihZSx0I2DtUetlyHW+RW12WNLf LP55wQJjvRVvc9tlgRr0DqXwUXBl NVZ2nIklKZexq6ScQIRo Q32kgQAvs7V2DMTkhQudoPRxExZn gML7rZ3oMOhegwdoa2yyslbqTfvy i6cvht25tS05H97xZVvn AYLjDRAtGZIwJUAkhMgyfe3eeJ5q Ii8+EHRmuQA2uFV1gK6hTBAeEiS9 TRpzX369KyVtkHQcYcbl k8cde3ykgYi0EyU4GHUdrmSsjCqx ZWQ1e1OfZd65K23kQObgEQKyWCZb WNYjSOJusBlgid3ypX3r Ii8+LMTljLB7eHJ8gB0lQjEqQaN2 GBkhE853GbObcFTnUvwgL62nK7Fb dXA+BWQdVgx3PALuqDop ER9ubSHmSUncEx8uGGS6LiNyIpRt SRfmQ3LrFEFfropodzoyeKL0OTSg MFBknH92Qn4wiLxpXBXh oUPRmN2kjusss5qwdtquEmLsOSTr JLh9TTv7BENgqThgBtPaYBJ0WyQ5 SQN5yFDgjN0itZyablqo eU4jQ4SmKQHkepavHr12kW8qOeYt CdH6GOryUtv+RFlFLCBNSUNIRUxM EXQMFE24VK47pYZxg1I0 kYT6V5ZpYCGddgqxmvyfgEY6RVJk QRZitW73pVWoWUwvQc4dj3O4h383 DCMeMLFihA69Sy9htFup BPFtdAUEnS6kjudce3btipivMpDb YVLdMTc9UHo1FOAvbGtkVyOgJAE0 OtH2SQE4eECcdY7fcPlg hrmpzV6lLyi+OSMoJKXvXRm0NOzp dGQ+HCOnKTT2oHxnBDwhWJMbpB5i EYUvL0e7PmBkEiF7ZZvk C6HsAZQkaxylSp31oV9rEjBlFxM4 QImlV8XdsqK2KYIkoYPlKDfnQNE3 L63np3P7YVDhKBFaKLY5 qXV1kG9syUmogqzinDAwwBsmelZt qVhcWLheTMtxI686LOSnjCugKiR3 QPksIMGgID48YG38vFEd b0D8cDT3K2SoMZVuibpzhjrtxBX5 CWRqXYVhjB82sOJqKSgbHi9xf5X4 e128RKPlXFIolL47Al1l lEjhVGNmtMYHtU4zbylbt0efhsul SnMvQGAfNHa2IKm3NQCdwXtsRdQw RCM3CiT5ZJS1pHXyyT4d hWrjcdcugQ0bIja+VtQbGBnnDU79 PO31vNWsa9Q5oEE5F3SiIETpirkf qbsoaES3NEIdCTFaxN47 yFQqUXrtTr9uk8J6a606UMVqAISd tI46Df4viYkqWQQifJKXcG2nfgkc o0avmgigGuFsZGOwRMr1 FXl9VQLryGaxEnTbCDF1FxF5QCK5 mOJaaU0hbLwtlnbdcX7jOrc+UGFp feQWHT8eE7AsOE87BC71 EZ70S9AgLamflPGwsPS+PHRhYmxl WZmpCBDxWCsoPLZeNaYirHxdGX8d Ev1fLLJeWLIyvCouwGCm KjJex6kgRSSkHCnqAO3ptTrhD7Ic lUH1WBFde6m7Mj70Q32jQ7QonWG+ YMFniAU6gMB7qE9uDwMv NkH8NDjiC087UaAgqDQzXfhiu2we u7sbrCg2UxVxHGWshiSyiDhxWHD4 u5LyYp19H00uUGmzYTEr LSTnOPVcBGMdjRbjst9ydG4hDr9+ XPGakSP8qSD7dF3kJaEkEsN7VGcn I038BdDseYWfQwywW19a T6BrjQC+TBTcTxv8GDIesUbqNZ4g dORyRSkuEb2uKZA1OrMvFrLeYEul N4MaBWHilrjjimiyqTI2 GWUqZPMqaT72Zh8kfJkpSy0xNZYg SQX7XYYejSLpA7NjbC2lWoRqZWIw MIKvL5LscZQeXFsnD547 DBbePwD1WNYuooArA0TtHJSkkRfa UcN1x8X2Kr7UqXhybDOhUJ8uKrEr MZa2D9SqUhf6ZNZzaSzt NF2otNSxJWysCc5auVitbDgaPV1c MUYkpmlur612YgVtc9faSUVvgHJs QZptXWN3J05vc5K1JJKo WJNnYXA6lFU3dJ1ebEiuwlmsiREm dPhubzUcaTnpUHlmDMofL378VRQz gPymSnOESgv4S1IzOqf7 VHUpjXrjZD7awTIzEOolLc9hsLud nBnoVE4oECHmwlgov014WbMku2gf HRBhoTEdWDfrJKP8V96j u5G1OKBpNERwGKK8uWS1bF0ayLnq bjogbGVmdDsgdmVydGljYWwtYWxp C064BXYucNhoXq8EDqg6 L6KfAes5PTZhzZraUV9avNCyAVnt Sw1deFcquJdtMJ9rYMKxrntbv168 SeKdl1fhCVVmjGIfOWsv VGD9M18fw9E1PWNfULYkHEH9gXO8 jA1maJuhjmkkhTYaeBqmhuHreHfi NMtfUQrfL332RKEtrUyy PlBheWVyOjwvdGQ+TJ09cl99Q8Wz LvdhZdh7SCRjBPE4vNM1aA6tIYFp FWsci0E1nMN8Q5GpbjTq lw8rj6df (more content not included)... [facility] Legal Correspondence Officeo n 05-31-2022 Legal Correspondence Office [id number]#[id number]:127 [facility] Nonvisit Note - PTon 023 Nonvisit Note - PT Pt cancelled PT appo intment due to bladder issues per manager desktop. TE [facility] Consent for Treatmenton 05-19 Consent for Treatment [id number]#[id number]:127 [facility] Consultation Noteon 05-31-19 Consultation Note Chief complaint: Mul tifocal pain History of present illness: This is a 47-year-old female here for a chief complaint of multifocal pain. The patient rates the pain as a a 5 out of 10. She reports since her last visit her pain issues are more or less stable. She still has a lot of spasticity in the right shoulder. She is getting Botox injections with neurology in [place]. They also put her on methocarbamol. She is using Lyrica, baclofen 10 mg twice a day, and tramadol sporadically for months. She is using the tramadol about once a week. She states is helpful. She does not want to go on anything stronger. She has been able to gain a little bit of strength in her right hand. She can now pinch with the thumb and index finger and can move the other fingers a little bit. She denies new numbness or weakness. She will hopefully go for a suprapubic catheter in the near future. Her bladder issues are unchanged. The patient denies additional neurologic symptoms or issues with bladder or bowel control. The patient's past medical, surgical, and social history along with medications and allergies were reviewed. Review of systems was done on 10 systems Physical examination: General: Pleasant white female in no acute distress. Patient appears well-nourished. Vital signs stable Head exam: Head is normocephalic and external ears normal Neck exam: No tenderness Cardiovascular exam: No signs of poor perfusion and no peripheral edema Respiratory exam: Breathing is unlabored and there is no wheezing present Abdomen exam: Abdomen soft and nondistended Back exam: No tenderness Musculoskeletal exam: Weakness of the right arm and leg. The strength in her index finger and thumb on the right side though is now up to 4-5. Neurologic exam: Sensation intact. Mild allodynia in the left foot. Psych exam: Affect is appropriate. Alert and oriented Skin exam: No lesions Assessment: The patient's signs and symptoms are consistent with a combination of reflux sympathetic dystrophy of the left lower extremity along with transverse myelitis.. We reviewed the patient's imaging. Oswestry disability index score was 36 out of 50 [facility] report was reviewed and was appropriate Narcan offered and declined Plan: I addressed options with her. I will increase the Lyrica to 200 mg 3 times a day. I will also refill the tramadol. I think it is very reasonable given what she is got going on. I am going to check and make sure that her neurologist knows that she is on baclofen as well. Given the uniqueness of her situation baclofen, methocarbamol, and Botox injections might be reasonable for her spasticity in the shoulder but I just want to make sure that everybody is on the same page.. We discussed the potential risks and benefits of this plan and the patient was in agreement to proceed. I will see the patient for follow-up in 6 months or sooner if needed for repeat evaluation. [facility] Comment on above: Result Comment: Elec tronically Signed By: Leon ROSS, Remi\.br\Date and Time Signed: 05/30/22 21:00 EDT Office/Clinic Note-Physician on 05-30-2022 Office/Clinic Note-Physician [id number]#1.00CD:127 [facility] Patient Correspondenceon Patient Correspondence [id number]#1.00CD:127 [facility] Patient Correspondence [id number]#1.00CD:127 [facility] Patient Correspondence [id number]#1.00CD:127 [facility] Patient History Officeon Patient History Office [id number]#1.00CD:127 [facility] Nonvisit Note - OTon 023 Nonvisit Note - OT Pt. cx, ill. Normal [facility] Nonvisit Note - OTon 023 Nonvisit Note - OT Pt. cx, having denta l issues. Normal [facility] ED Note-Physicianon 04-09-19 ED Note-Physician [id number]#1.00CD:127 [facility] Urology Office/Clinic Noteon 04-06-2022 Urology Office/Clinic Note Assessment/Plan 1. Hypotonic neurogenic bladder (N31.9: Neuromuscular dysfunction of bladder, unspecified) Pt presented for urethral Márquez cath change today. Cath last changed here 02/28/22. I went to change cath but could tell it was a different cath than what we use in the office. Pt questioned about this. Pt indicates she went to [facility] around 12 days ago for an ER visit because cath was plugged. She indicates they tried irrigating it but weren't successful so cath was changed. Pt gives no particular cause for plugged cath (doesn't indicate encrustation). I have no records of this ER visit. Will have staff obtain records. Pt denies problems since cath change at [facility] other than the bag leaking. There is clear light to moderately colored yellow urine (no blood or cloudiness) in collection bag and it's leaking. I had staff change urine collection bag today (uses a 2000 mL bag). Cath not changed today because it was changed 12 days ago Pt to have cath changed again approx 4 weeks from when it was last changed. I did give Pt a written Rx for cath bags and made a copy of Rx for chart. No charge for visit today. 2. Urinary retention (R33.9: Retention of urine, unspecified) Follow-up No qualifying data available Approx 4 weeks from date cath changed @ [facility] Problem List/Past Medical History Ongoing Abnormality of gait Acute cerebrovascular accident (CVA) Anxiety Cervical disc disease Diastasis recti Gastroparesis GERD - Gastro-esophageal reflux disease Glaucoma History of migraine. 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 Nuclear sclerosis Musa's syndrome Poor short term memory Reflex sympathetic dystrophy Right ovarian cyst Sensorineural hearing loss of left ear with normal hearing on right side Spastic hemiparesis affecting dominant side Transverse myelopathy syndrome Historical Abdominal pressure Dehydration Procedure/Surgical History Arthroscopy of knee (02/26/2020), Cystourethroscopy with dilation of urethral stricture (03/31/2018), Urodynamics (03/31/2018), Spinal cord stimulator implant (02/12/2018), left lumbar sympathetic plexus block (10/16/2017), Left sympathetic plexus block (07/24/2017), Arthroscopy of knee, Colonoscopy, EGD - Esophagogastroduodenoscopy, L salpingooopherectomy, Right Eye Tubal Shunt, spinal cord stimulator trial, Vaginal hysterectomy. Medications Azopt 0.01 Susp-Opth, 1 drop(s), OPTH, QID Breo Ellipta 100 mcg-25 mcg inhalation powder, 1 puff(s), Inhalation, Daily clopidogrel 75 mg Tab, 75 mg= 1 tab(s), Oral, Daily Combigan ophthalmic solution, 1 drop(s), Eye-Right, TID diclofenac sodium 75 mg Oral EC Tab, 75 mg= 1 tab(s), Oral, BID dicyclomine 20 mg Tab, 20 mg= 1 tab(s), Oral, TID hyoscyamine Sublingual, 0.25 mg= 2 tab(s), SubLingual, QID, PRN Lasix 20 mg Tab, 20 mg= 1 tab(s), Oral, Daily Linzess 290 mcg oral capsule, 290 mcg= 1 cap(s), Oral, Daily losartan, 25 mg, Oral, BID Lumigan 0.01% ophthalmic solution, 1 drop(s), OPTH, qPM meclizine 25 mg Tab, 25 mg= 1 tab(s), Oral, q4hr metoclopramide 10 mg Tab, 10 mg= 1 tab(s), Oral, QIDACHS oxcarbazepine 300 mg Tab, 600 mg= 2 tab(s), Oral, Bedtime Pepcid 40 mg Tab, 40 mg= 1 tab(s), Oral, Once a day (at bedtime) potassium CITRATE 10 mEq ER Tab, 20 mEq= 2 tab(s), Oral, BID, 3 refills Prednisol 1% ophthalmic solution, 1 drop(s), Eye-Right, QID pregabalin 150 mg Cap, 150 mg= 1 cap(s), Oral, TID Pristiq 100 mg Tab-ER, 100 mg= 1 tab(s), Oral, Daily Protonix, 40 mg, Oral, BID Seroquel, 100 mg, Oral, Once a day (at bedtime) sumatriptan, 100 mg, Oral, Daily, PRN Toviaz 4 mg oral tablet, extended release, 4 mg= 1 tab(s), Oral, Daily Ultram 50 mg Tab, 50 mg= 1 tab(s), Oral, BID, PRN Zofran, 4 mg, Oral, PRN Allergies Contrast Dye (throat swelling) cabbage (Vomit, Diarrhea) Social History Alcohol - Denies Alcohol Use, 08/08/2017 Current, 02/15/2018 Current, 05/11/2017 Employment/School - Not employed or in school, 02/18/2020 Substance Abuse - Denies Substance Abuse, 08/08/2017 Current, 02/15/2018 Current, 05/11/2017 Tobacco - Denies Tobacco Use, 08/08/2017 Never (less than 100 in lifetime), Denies Tobacco Use:. Never Smokeless Tobacco Use:., 01/18/2022 Family History Diabetes mellitus type 2: Father. Gout: Father. Heart failure: Father. Hypertension: Father. Primary malignant neoplasm of skin: Mother. Rheumatoid arthritis: Father. Stroke: Mother. Immunizations Vaccine Date Status Comments influenza virus vaccine, inactivated - Not Given Patient Refuses SARS-CoV-2 (COVID-19) mRNA BNT-162b2 vax 02/07/2021 Recorded SARS-CoV-2 (COVID-19) mRNA BNT-162b2 vax 06/15/2020 Recorded SARS-CoV-2 (COVID-19) mRNA BNT-162b2 vax 05/25/2020 Recorded Normal [facility] Comment on above: Result Comment: Elec tronically Signed By: Masoud MANDUJANO, Axel Hyatt\.tito\Date and Time Signed: 04/06/22 20:26 EST Nonvisit Note - OTon 023 Nonvisit Note - OT Pt. cx, ill. Normal [facility] CNOVon 03-28-2022 CNOV Office Visit (REHMMN ) JESSICA GUTIERREZ ([id number]) 1975 F [place] Date Time Provider Department 2/8/23 9:45 AM MARILIA SIU During your visit today, we recorded the following information about you: Pulse Respiration Blood pressure 91/minute 16/minute 132/73 Marilia iSu PA-C 03/28/2022 12:29 PM Signed BOTULINUM TOXIN THERAPY Patient accompanied by : spouse Current complaints / history since last visit: most recent botulinum toxin injections on 11/14/2021. Illnesses / hospitalizations since the last visit: none Other updates: none Anticoagulation: none Home stretching/exercise routine: currently in PT BT therapy effective? Yes - stiffness Duration of benefit: 6 weeks Side effects: No Pain related to the purpose of the visit: Yes LOCATION: right shoulder PAIN CHARACTER: stiff Patient Entered Data PROMIS No flowsheet data found. Spasticity NRS 12/06/2021 11/14/2021 Spasticity Level 8 7 Spasm Scale 12/06/2021 11/14/2021 Spasm Frequency Infrequent full spasms occuriung less than once per hour Spasms occurring more than once per hour Spasm Severity Moderate Moderate Global Impression of Change 12/06/2021 11/14/2021 Rehab global impression of change No change Not applicable Nutritional status: swallowing ongoing choking on solids Driving issues: NA she's not able to drive due to low vision Safety concerns regarding living situations and safety at home: No At risk for falling: Yes . Actual falls since last visit: frequency/number 'too many to count', 0 injuries; falls are typically related to falling out of her wheelchair when leaning over too far Examination: Strength Right Left Shoulder abduction 0 5 Elbow flexion 0 5 Elbow extension 0 5 Wrist extension 0 5 Hip flexion 0 5 Knee flexion 0 5 Knee extension 0 5 Plantarflexion 0 5 Dorsiflexion 0 5 Strength: decreased set designer strength in RUE, slight voluntary movement of the Right first and second fingers noted. . Spasticity Right Left Shoulder 3 0 Elbow flexion 0 0 Elbow extension 0 0 Wrist flexion 1 0 Wrist extension 1 0 Finger flexion 3 0 Finger extension 0 0 Hip adduction 0 0 Knee extension 1 0 Knee flexion 0 0 Plantarflexion 0 0 Modified Jesse Scale 0 - No increase in tone 1 - Slight increase in tone (catch and release at end of ROM) 1+ - Slight increase in tone, manifested by a catch, followed by minimal resistance throughout remainder (less than half of ROM) 2 - Marked increase in tone through most of the ROM, but affected part(s) easily moved 3 - Considerable increase in tone; passive movement difficult 4 - Affected part(s) rigid in flexion or extension Spasms observed: RUE: no right upper extremity spasms LUE: no left upper extremity spasms RLE: no right lower extremity spasms LLE: no left lower extremity spasms Timed 25 foot walk: N/A Assistance required: wheelchair and other (brace for Right hand) UNIVERSAL PROTOCOL / SAFETY CHECKLIST Procedure to be Performed: botox injections Sign In: A Moment of CARE was completed. Personnel directly involved with the procedure wore the appropriate PPE (Personal Protective Equipment). Patient/Surrogate Stated/Verified: PATIENT VERIFIED(optional for EMERGENT procedures): Patient name, Date of , Relevant allergies, and The intended procedure Time Out Communication: Intended patient and procedure match the source documents. Consent documented and matches the intended procedure. Relevant labs, photos, and/or imaging studies have been reviewed. Correct side/site marked and visible. Medications required for procedure verified. Fire risk assessed and interventions discussed. No implant(s) inserted. Sign Out: SIGN OUT (optional for EMERGENT procedures): No specimen collected. Marilia Siu PA-C UNIVERSAL PROTOCOL / SAFETY CHECKLIST The risks, benefits and alternatives of the procedure were explained. Written Consent Obtained: yes Clinician(s) performing the injections: Marilia Siu PA-C Incident Commander: Chelsey Hoang LPN The patient was positioned seated in wheelchair. Brand of toxin injected: Botox. After skin preparation with alcohol, a total dose of 300 units were injected as follows: Muscle Limb/Side Dose Guidance Comments Pectoralis Right 50 units EMG 2 sites Bicep RUE 50 units EMG 2 sites Tricep RUE 100 units EMG 3 sites FCR RUE 50 units EMG 1 sites FDP RUE 50 units EMG 1 sites Total Dose: 3000 units discarded. Dilution: 100 units / 1 ml LOT #: [id number] Expiration Date: Month: 5 Year: 25 The injections were well tolerated. Minimal bleeding occurred at the injection sites. 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 She continues to endorse pain related to sp (more content not included)... Normal [facility] Nonvisit Note - OTon 023 Nonvisit Note - OT cx d/t hazardous wea ther conditions. Normal [facility] Coding Summary.on 03-08-2022 Coding Summary. [id number] Gh0bWw+P GhlYWQ+SP0GPTFfC94djDIrgV3DO 5qWTK0FJAFHTWZMRD0BSJ1suYO2B CyiD7QijnVa YfkpmQGhZO18FZl8DGE5oVpzGHtf sS2qeNBpQ7z6VkTdKL31hP86WVnf BTCeUhO7JpHfihyqhNDm Z0naDzHvoTMrSif+PHRhYmxlIHdp XPRlTKeuRZSpRjHlxHtuGM9yRu5o ZGVyLWNvbGxhcHNlOiBj f1yfQZQxEYgmAI1xoSxwF8DgnHZ9 FNKxm7g4Ng01aXC+WXDpBSH0sMwl RDwqe992ItXtw2grZZK6 aAPaXXhwFME6A91so1W5NHHlRJQu FIK8lPA8aY6jdUksynfzU1HglQXa WxJ5POB5fROaiA3ujBsn rnmzcK6tUpt+D19PJA9BARYCMS1R Tmi5M6VlFncbzAV+QW98KUTjLA14 rMErwJUei0nikWy3TtCm OMScEOA3rDhaGKfqr6PfRYCoN17o jSDrc8G9TBIusUazpEDhMpGhmWL5 gC0lOTrccvxrn3bmdwri Oxxrz2bfmz79sE45Z67fFDgtDUUn EHB9XGZeJEZohCrscp0cbK3sQb2+ SMhil3jru7qgdEn3FmEm WVDewmWeuCgtIBU3g3AdUj43Z4Fo qBrxk6MxHhd6jw97iJBzn6T3lVX7 PXisBBOwqW1kPPwmVvR1 MHCjYuXntU43pJJdFDbuRi8utJhe kEmjND2aQIDbsomrESDylZ1vYLXg eNRizJsiAB4qBPGxuzop l366HnKdZPW5FIXbdIFbA8BczE0o HrKnIHMlZWYdW4XgoROkXUoaY986 BFnnVkR1SOJnogEuN5Dd XKHliKurZpA8t5Q3Fd8Ke4Uxwfbq MCC0RFnjDADpZrT0BiGxKwT1N0Yd Gql8JXMslFtzGX8aT8Nq QIRqgffsdujglKZ0WAMuGRPcjY15 oHDeBEngWn0zp5S1q707TJIjVXIp bD62Mx5zhAybMHYztCCD iC8vdpnbb9dswvdoSnGdOVJoJHc4 KFa3YAMgeGynHvVkASX0ArB3KDG5 zXQdcY9nmWyufaqkdT7d Oyc+Y62kjO6iXXJ5QED2kvvdCKTd fdXsST27FB11Y7PtPbkhgXIyzAA+ WIOjxjYxmWhvWU4yItIl i4upy8LuKFlqX1GaVHJyKNdeIxh1 LEZvPYO2uGK8eM7vCMZlZDxuz1W1 dNB1G6RfdnSwmw1sl4er RKWlHEvvB22naVSlm3B0FVHsqYI3 CAUmgYypUzChrU07Ezy+PGNvbGdy u9LiZhnfl3vws1pmeWq1 FeXrXFLtwxTnbScxKHK1g0MwNl16 U86tSAhbYJZyJKFqBYKjMPGtzXwv er8npK4yEc0+PGNvbCB3 aWN8hE1uSDEuDbF8UVxqZ476PmQk oBLwYpkkz2syz1rqqXu4QgHuDCEf drFqmWbbARO6g7LcVo49 G62mSTxkMGGrJKSkEWCoKNKzdYex wi7rhX3oNk0+RL2mk9jqkt41aN91 dHI+FECcAHG7vIpnOTec ZCBwbV9vKDbfDcX9BBYdZzLwlI42 wEBxYNxoCm2pxPkqqDnfIT7lNDHk etsui344GhUrt9oiHIRt lWXeIIjlXKJ4X59ps4S6WQCnFELg KFY7lJP1qQ1vrYesrwgmqIQrzXhm giRreVnaRTmlXNekO001 IHRvcDsnPlBhdGllbnQgTmFtZTo8 K7KyKmf2IOIglCoiJU1nsEWrDCjo Dp9sxWxczEzyGX6vDQYy plmqt635FoHir4wuASVpoOUhKVrx AGH5S63zq5Z3AKOyHQXwUFJ5bUJ8 qA8lbJirultdbEKzmGxx ghXlsUfoSZbcRNvaC074IPBviMaz VbIchnReQIVpyND9XW52HJ86fRCo y9A8zOM8L1XwATTefpam xdrpoGH2VZTpPZDoiL94Sd0wuNpl Al3wZKIfMAC8TMMhiZHhZ1YnqT2u AvFwXTOfGYUtZ1VrvOLv MFgxR585OSrfJzU4OEXrnlWvW8Pf EQPpeEcmKyL7u7E2Xw0WW0E3AG55 KF86sHHmv6Y4jLQ8K8Nd EEUcqbpfzgjbnTJ0AXJyFQCvnL98 Gu1eaZdpDt4cSQKhYPM7YIYxqQBq P2JgzU9kVjExEWJhACVe Y3FanZJjZCypT422XMkxEoE0TEGq mdYvZ5JfZKPgvUzpTwL4d9C7Ve4W URw4EV32HZ63kQKdg9Q8 rKG8W5ReCZDaamzwehuvgZC8UFMv NVNxkB07Mh3jrOimUc4fEEFxOLK0 WJShjFCqQ1RdkD2oHnFb FAViNGIxA7RasXImQOuvR216VFfj AqP8KMCrypYbL6OuCVCfyGoqWzR2 f3F6Yx1SWARuVM16MRV0 lGR8TW42XY95A1VsTswtkZKnkIS+ PHRhYmxlIHdpZHRoPScxMDAlJyBz oHttTI9dPy7eZGLtBEJk sPpdzIKzFjGww7nnYOOkMCszNW0r nYloZ5XhjSI4SRPqw4a1Gf36V42d X4DryRB+JHCwmBD2sIM6 jJ5bBfOqRoU9QGokS203KnLhaYTk Yfold3puo1tkbRj2HhD0HKIgplAy jIqyNIO1w5NkGt49P22k MOazMSNzWCCgIOOoPUQhqCmtfx2b nF6sYm7+PNAycVA2nCK2nU1rYnIk ViW1ECucQ527FmHnbGTk Czxpo4vww5labSw1RwGoSRCxjcHc dIxmOHE0l9PyZc05U8WpnYvhx3Fo Trj8kh30qPQgr9F2hAX1 J7FoWGXoapqgmDCzdLdsYD6bPGYc mlsgCSZwcJ5qRWXpH3j5QsNxOdS4 EKjgV2WxrmT1YRFtiIKx JBcxRVU8K50zh2S1NSVeHFMnMDU7 zJN4uE2ixHosqbvwvJHmpQhleaFz zOkuDVjsXBfdA518TNWo sCxfRPTnqD3uINFteMLmeZrtQB9u NTBpbjsnPkRZRSwgTUlDSEVMTEUg UjwvdGQ+WIYlLAT6yWfv YWguFOSguH1pCNGpA0i9VeWgYyZ8 OXvdL3XrTSBafkewIx17gB3rMvTz JkR5IPfgA5XznpN2LPIy kAEyJQkcIAO4E31qc8D1HHMnOHMt DYX9eUA5lC4nhPybiknrlJXoeVzq lzDjiFinSNmxTAbcA749 HFCrcXcwAjReRzJ4BnO9LiP8G3Fn Xon4WJJomIhgMS3guRMbKSwhKg2z uWuvxMafKJ2tOFRinohj DBKygK0wCTPshUPmxGwpLV7mVEGi myeut659KkEhXXE2BFAslMPlN3Mg aZ3bJyApYUDpAGYuF6Pw nWCfKOxnY988QGhgUjM4XGZfnwWd S6VwCXKqaGcqQrT5i7R6Rh82URIM ZWFyczwvdGQ+PHRkIHN0 yIzhZRpbBCGjeR9kRUDuU5y2XlUq LzC8EJcuS0RmCECshqiuLd46tQ6e UyHjUqL4EYzcW6MansW5 RKIbuIFxJRqjBVX0W26cq6A3JMVt YGDuZQK6fJT5zO2hoHioirhrsJMn dDsgdmVydGljYWwtYWxp V831MCQddUpaToFrkVXaSVicbYF+ ZNRfBRP2kUkcACsqPTEdnX7yQYHv H5v2LzFlAdU2HTxwH6Gz IFMuaphoSg91nA2qQjKfOmS7WOuc R8TmxdG0LKQhpZOkBCpgELT0T21r g5U3HDDlLYJsCES0iWN5 kN2leHpjhpmhfWUrzJkhzbBvcQlr SXwwTKscS107CYXyyHgdLn85oLXc qVekiwP9E1FrExchgUD+ WQ20HSEmHI14aBCflYWfd3ouiYv5 ZqAuBUGfIFD2kUatAKfxy6BjZNDf K84laCLel9M4LJSumOce kIUnSoReeIE3vV7yEZjkvecsf3ls pkwkVfrju2ingw97mE04H16bBFrl ZHRoPSIzMCUiIHZhbGln qt4poY2iQb9+FCQayWN9xRP8dM3u RmQsMtS3ZSyaL183ReOhtHLoSdck e3eyl3rmcOm5IkFhVXVj uaDbnSevSFU4p2DsBt34L91qLYer WWOmUBZeMTMvTPCmqLhyrx7ikU6u Ii8+IQ8za3lggs72jI81 dHI+HCJkXOH4xFajEBblARTxtM0d ETnpTiE3CEYkUbLsvT44vFMtOBln Sc9keMpapPqoCP3vSGPp qpdar282QsXci9kpYNYnhMHiEAzl EUO4E53vy1R5QKMfTLJuVRX5jYU5 kW9biNstgptyuAHkcNex fwXcvAqkYGyjSDraN354EASjrSqj LqNoiLCrC4cnoqENKK7qUwwynUD+ AQBdQWK4iUpiUEeuFNLk zH5oNPKuN1l8UtToDpG2ONyaU8Un maZ2WWKmyYZsVCIhuJBRoG3chkhb t5forsutLsFnZLOgYLj1 OHt9GWYklPkxYyOaEUG0HuL2QTU4 zINcpR1zxTkriaubcO2rRlw+RklO OjwvdGQ+FWOgVZU4pItj YDmcLTEnsW7kUGHkK9z0CtVwIoV4 MFffM3CukyZ1PYOqhSLdWWJxuYIY iN6xexezn8wtsndmGxLt ASRaHNc9KQc0LDMwmDdyWlLqRND5 VoX0HNG2oSZzfQ5ocYkejgngyT5m Oyc+TVJOOjwvdGQ+PHRk WCX8fBoaPPynRRHkrM1hDKFeI5u9 KkTnJkR1SGeoB9KfyxA7HBWqzKEs GEVanLIHoY2czzscr5mf huhvMcMyACUnQXs7AXg7HXBdnNlv BpAaQUJ8RgM5DFS8oARzdM0egLcw kifhgA1wJtm+NIA3RRT7 XT66YI59D2ZpJmqfsKZghME+PHRh YmxlIHdpZHRoPScxMDAlJyBzdHls TO8uGs8nPIFoPOFlwVcf cHNl (more content not included)... [facility] Consent for Treatmenton 02-18 Consent for Treatment [id number]#1.00CD:127 [facility] OT - Otheron 03-07-2022 OT - Other [id number]#1.00CD:127 [facility] OT - Other [id number]#1.00CD:127 [facility] Comment on above: Other Comment: Only wanted to scan the one side PT - Orderson 03-05-2022 PT - Orders [id number]#1.00CD:127 [facility] Coding Summary.on 03-01-2022 Coding Summary. CD:[id number] Gh0bWw+P GhlYWQ+TH9RTRIcQ21lyGBajJ7YR 0sXNG0VDTQWBBSVVQ3STM5ehTB4A JhqN6UqwsTo WpcgnXWbVD21WLa2KUV7uBuaRUyx iX7ynVUsN5c3AuSlAA24qS84ORav FFSvJtN6RtXapuldhLTx Y1inKbNhiDAcCoc+PHRhYmxlIHdp OUJjLJkkWRCfIkEkqGgiFZ0kXa9k ZGVyLWNvbGxhcHNlOiBj t6atLTKlSHciIH1loPsjH3RqoJD5 ZIRkm4q3Ev88aJG+GZDrTAB1hXew DXeus216YuHpn9uoSFS1 sPZyNHpzEKQ4V10xj6Z6YPXkOVGt VPC8nIQ6xL9jyQkflmumM2IkcCPp UsO2FJP2iVAoyM0ixPms cnytaD2fRpj+X57NWE5ITFROHV2Q Oui4K5BwXywxzXC+AA38LLJbMY18 uMMbwQZda2eatOa9OaUq ZCQfVDR9mWyxXYyup7WsPBArP90v cEKdc6J5DQMvgKgfoHQgDmNufBV4 uB6cXHeokvjop2jrecqh Blpei0yqqk94mE88T28pWFigEHAr ULP0ENPqNAHnyQbias8zmB0oUg5+ RHuez6irc7mlrEw4QiVd MJHyuyZkyPvzCAF2c1VtVl25F8Qf zJrlj6CnPcu5be67oVCfg0T5cXK9 NAyrAVFavM0dOSpsDnZ9 WFToXcMtwK59mUYwWZjuLk6lsDue yLqgYM1vKDVquxpvMVHgzA8fJGKo qCEzgYlnRR6yNCTzsiao t144RpCxFUZ6UPJdrHMbN7AynD1e CmCcUBQjQYChQ0SadQSgXHfhR492 BPglBcC3UFRnvtAzT0Bv KVEthDlbYaC1m8U8Mr8Lt1Nikidy NNX7NRccZHQuZcNgCqAlNyB1L2Qn Fgi7TIBjxTztPB7oR8Zc GVRdxhxpxqrhzMD9YJQgZNTxiP18 rIQeBSqrMj5uv4Z7k169FWIkYMNt gK06Em0ylWqvJFUkeQVZ fP1tcdeos8wbqyieHxEiDQFzSJf1 BPv3ROAzaWebAvZsWZO5DcU0LMQ6 lCXgwY0roDnpcyrfsC4y Oyc+N34guK2nWAS4NXC8yqrkNYNj vfCaIC80JR39A0KiEjkaiNUnmBH+ ERQakhSxyBfzFS1uLrVv w3anj6KmURvjJ1GfHHIdDNnkHni5 TEHxSCI4zYD7yE2uFZTwTKftn3D2 sNO9O2DfimWiwm6vd1rh XFRmMNvrK67njGTcj3H6IDRsqQK5 AQIajGrjSnDdvQ43Lle+PGNvbGdy z2CwRcngv2jyd1dicAx2 FyXiQKGssmMfkBriYKQ4m4FeVv16 M09dIYqzGYIpNLTyJZZvFVDfkOvy fj3eqZ1iOo8+PGNvbCB3 eRI0oX8pWLJdNbH8ZAppX828MwLd eSIiXorub2efz7bxkZc2OjBfFLWt qmGjiFqqUYM4p0ErMa92 Z29jSDfmXZSbEYUvRAZsWTEsdUvx dm7nnW2vJv2+TQ7ep7iaid78fY86 dHI+NMXxRGC3fTxgWTju ERXdoR0bOQpaGzG8ZNQxJbEinE49 yYSbCVhdAb8qwJyzcNnkIP7fSEQp gmnaj048KqRce0brSLBy kLQdTZkxTZZ4T24to5S3XWCmJRVy KEI4bYJ7zQ4mzCeashakqHHlqHjx zwIqwQidFKkvBDyyW730 IHRvcDsnPlBhdGllbnQgTmFtZTo8 Q6VfRwo4UFUndAgsBM2fzFPmHJfn Md9vmTsbvLloQI2bIUGr soyqu882MlRle7tiULFapEOiAOma BWX1A31za0U6NDTjXYAqOJS2rNF0 bG1oxJcuvdaeuQYdeDtw vaGfbWvdKDnkEBwiI783FZRgrPpl JkOxfdEiYKLauWD0VG21YM13zPYg s7I2lRF3H3QwUWQqbepc hevspKL6TCIxWCTgbQ62Zn9cjYns Dj4gHNAdYDX1UECetCMwS8OdfH4k NdClFKIqNVVrY1MxuJKj PAlgL647KLbqOmH0LSDokkDdC7Cm AMXjsCvuQdS8a9P3Jt0BD0L4NK07 OS05wGTjo8A8xAA7A3Ri BXRtwyhbveucwYZ4JLVpDMDnrB92 Fz4vcQxbFj1cPJMhMOJ2TYNpwASg M9FhhA6iYmAgIXLnQNXu V7OeiQNaOXzfC221CTvxMpJ9HHGg bnQhN3MrQQNgnVyvBuM8g8X8Kd4P DNe3DJ54ED39zTXrq6W5 mSX8W0WrHNVaqqpvzyulsJB3ZZMe XANlhO75Dr4oiDaeEe8zFZJoDCL1 SDBzlPEyX1NapV4tPrJn QABnNJIvN3MkhFRbLXeuL783SJfp VgC1FJXlheRjK3TrFKFcqPipLyJ2 e5G1Ne9BOXOkCV45CMA3 kYN7RD26UT23J5IkHhtmhHGrwRU+ PHRhYmxlIHdpZHRoPScxMDAlJyBz aJkrOR2qTd3sFKEnEUIs bDnxtGQjNkTji9qaJGYxUCtaKD1t lUmnF1RoxRE4EGCgx5b1Hj73M30r P6GyxUV+SMQytIV2pKX7 uP4fMwWyGzD6ASihH567TvJstULu Lluzt4ywu6pgrVp5DaO4VFOvkuVg qTwlPTP1f8SeYe16L89y APneCOOcIOVrYMUaEJKmmTbvxz3t sX8dWz2+GDBqiQZ3zQO2aZ2xNzIx MlE8WLzxC138KjFvdMLo Mukno7mqw4goeBu6QdGcMNSesrAh eTzxIBD0q3SnUt86G7NjkQvbu4Uc Pno4sk95qTDrf1M3xDN9 N9HfUCKsjkvhcPBikMadYX9wTJFv hdmlZXXubD4hHNVtM8w5UsYdNzA3 VTrgT1AjviD1JGPicSBi EMiaYIT1E96md4Y8HCFiKCQfRJN7 eTF7rP0iyQwizhbkwRHkiRxqgwTe uAtaURsoXOxoO579PYFn gSbzEPJdpW5wGXEoaYThoSqbXM2f NTBpbjsnPkRZRSwgTUlDSEVMTEUg UjwvdGQ+MOViODN0wEwi ZGajGZNktA6dMARyV0s6YyLyQsZ5 AMtnB5JiQOKduqbnWn32wM8kRzVs VdD1KKvzN7AmmwR9HVQa fWXoDTqyEHU2Z35wo7W3ACFnNYKw DKO5hVW7bZ4euMykegygeKJksHin bqOjrLuyPEkhISofZ484 SBJkzAdpIsGwWxC1FeX4SkI3R6De Mou3FPNuqVffZA8osXCdDTggVh4t wLpbdQkjLO0fDLSixcaf PKMpwG5hUIPvlBCrcEdhQZ3zPDQy tvbbj745PzKdTWK4TYSvgVArJ2Xm pC9rUcNkBOBkCWGsG2Yj mCPnGHtsI245QMopFlY3SGHjayLi Z4CsHNSfoMaxSwN9d0H0Vp08OJFB ZWFyczwvdGQ+PHRkIHN0 uWasXMnsZFKtzF0dHAAaX7s1KcSz GnE0WQfgO6ZjEETqdyibSa98cE5x IwKjElP6VTqoV7HnzaY8 PTZhfUKxEXnuTLF8F86vz8L8KWIu GLUuDGO5dGD6mE9quVropnopaHVw dDsgdmVydGljYWwtYWxp K633IPFynYpxLcFwzHPnJAgllDK+ BDBsAWG0zLfcZAmtEEJfzR6jWKOn Z1b1UdWkJaE1TVasJ7Pf FINtrnoyKp04jW7sCrTrWvQ0AJbx U9BubvE3OBAjrBNkZAzvBLE5C47w o8Y0JWObPYKgQHN8pJW4 sG1jgNkehvndmPIgfQrecuNupRvx VDxmTZtfM085FDDdtEbcLzJqM2Ax cmluZzwvdGQ+QW99ex79 M4ClHctdRip9BHRyBFX8bZV1rA4p JBInBJiuk8Q9kJL1Q4DfwnUzgj7b p4phFQDyBFsiH56qjFAe v5M3IMCbhZF7DWRkwMkfJlZtzR51 Oyc+VMSbfXdoz8KlRlgfm8uyl6zd oOb1EfJvPQQubnKerJxw FRT8v8AeZb25P86cBGgtRFHoACDs OHQpSTLycFhkpg1huY3hWh7+PGNv kOY1kOM1oE0rXeLdMrQ0 RSvpO053UuAyrVAaQbtpv3qws7pw kZj6IbHiUXJaetLzdOafHMI6x8Iy Dc90O4QsvAbfl0GoAfj0 tv15wCCjw6U3nTJ6V4GkSGXrgvoe aQCboRzmJE9kTLNewyzvCYTluF8e APNhX7q1MkSsPmI1ZXvw O2FqavE7ZPYaeIAgJNLmvUZObU7h mzsfw5cdyqblZjVeHMSoQGl3LDt2 JLDejRqhXhNzPMQ3WuT8 CZN4xNNugT5leOhpabfbnK3bUls+ NNs8e4vliODrHD6tiID4NN76GP55 kEQsf5E5tMJ1V4WxOVSp pzxjinsbsSD4BQNgBXBajY05Ks4t lHleIz7qSBQuEKS0PILayYReP6Ic lN1zCkBtIPIjYOPcC6Mz rBGzRWbaL668JUfnUeG1APEjzqYd A2VwJCNcoDjeRsG3v3X2Tv8MRK08 AC62JH77tRZxy2E6tCT0 Y6LpKVTrdfiuxbqgtJI9JVRrCTCk fX11Fw2siXpgPo0bEXHwJLW4TWAr rLNbL2EdgA8zHvLjPRTl LMWdP5QfwBUoVOxoW862ZCwaFeF7 RRLnbtRcS8IkJJTiyFooSsB3u4W6 Iw6JEh62SY23OP75gGLn z7E0dSD2F0YqOJFwbcqgnccbqXK4 RQErBRWfbN55Fy2mwBtkGx3vVKZk XRA6MYIadVSqJ8YypS1i KzHfDKLeEGPlT2XmpFRcFRytC067 PFwgUsP7XJKhrvLdA5BrSKYcqTdq VrC6c1N1Ms1LWZmkbss9 V6WmFpsvyXF+RD79JEPqSG61vSXn qHEad8vglQm5FyKaLSLnASJ8yLac RBmyf3ToSSIjF36ntLZn c2U6 (more content not included)... Normal [facility] PT - Consentson 02-27-2022 PT - Consents [id number]#1.00CD:127 Normal [facility] Consenton 02-26-2022 Consent [id number]#1.00CD:127 [facility] PT - Orderson 02-26-2022 PT - Orders [id number]#1.00CD:127 Normal [facility] Nonvisit Note - OTon 023 Nonvisit Note - OT Pt. cx, ill. Normal [facility] Physician Orderon 02-14-2022 Physician Order [id number]#1.00CD:127 Normal [facility] CNOVon 02-07-2022 CNOV Office Visit ([facility] ) JESSICA GUTIERREZ ([id number]) 1975 F Date Time Provider Department 02/07/22 1:30 PM JOSE HASSAN During your visit today, we recorded the following information about you: Pulse Blood pressure Weight Height 85/minute 126/85 95.3 kg 1.651 m Jose Hassan MD 02/07/2022 2:32 PM [facility] FOLLOWUP/ESTABLISHED PATIENT VISIT PRINCIPAL NEUROLOGIC DIAGNOSIS: suspected myelitis DISEASE SUMMARY Date of onset: October 162020 Date of diagnosis of MS: NA Disease course at onset: NA Current disease course: NA Previous disease therapies: none Current disease therapy: none Most recent MRI brain: 10/27/21 Most recent MRI cervical spine: 10/27/21 Most recent MRI thoracic spine: 02/03/2021 CSF: opening pressure 21.5, IgG index 1.0, 0 CSF-specific oligoclonal bands, 0 WBC, protein 27, glucose 79 (04/19/2021) JCV serology result and date: not assessed OCT: 12/06/21: Right eye: unreliable, Left eye: normal average pRNFL thickness (average: 86); intact ganglion cell segmentation (average GCL +IPL thickness of: 78) CHIEF COMPLAINT: Review diagnostic testing results and discuss implications INTERVAL HISTORY: Overall feels stable Getting OT locally Getting Botox, next Scheduled for February. Denies any new symptoms. Right sided weakness has continued, feels like there is more movement in her first two fingers. Her leg has been unchanged, but AFO has helped with standing. Refer to patient-entered data. Usual treating team: No specialty comments available. The patient is accompanied by . The patient was last seen September 2021, currently taking Not on DMT. Since the patient's last visit the patient reports overall feeling stable. Issues with current therapy: Not currently on disease modifying therapy. has a past medical history of Bowel incontinence, Gastroparesis, HTN (hypertension), Hypoglycemic reaction, Iritis (02/2016), Migraine, Right hemiplegia (HCC), Steroid-induced glaucoma, Urinary retention, Uveitis of right eye, and Wheelchair bound. has a current medication list which includes the following prescription(s): tramadol, rimegepant, potassium chloride, fesoterodine, linaclotide, metoclopramide hcl, meclizine, ascorbic acid (vitamin c), baclofen, pregabalin, methocarbamol, clopidogrel, desvenlafaxine, diclofenac (ec), docusate sodium, famotidine, fluticasone-vilanterol, furosemide, oxcarbazepine, quetiapine, losartan, sumatriptan, hyoscyamine sublingual, and pantoprazole EXAM: BP 126/85 Pulse 85 Ht 165.1 cm (5' 5 ) Wt 95.3 kg (210 lb) BMI 34.95 kg/m? General Appearance: well appearing, in no acute distress Mental status evaluation during the interview and examination showed normal level of consciousness, orientation, language, memory, praxis, and higher intellectual function Affect: Normal Visual acuity: OD Finger count OS Finger count Correction: With glasses Extraocular movements: full, without MICAH Facial sensation: Intact bilaterally Facial movements: Intact bilaterally Speech: Normal Muscle tone: Right arm spasticity: Mild and none Right leg spasticity: Severe Left arm spasticity: Mild and none Left leg spasticity: Severe and none Muscle strength (#/5): Right Upper Extremity: Left Upper Extremity: Deltoid 0/5 Deltoid 5/5 Biceps 0/5 Biceps 5/5 Triceps 0/5 Triceps 5/5 Wrist extensors 0/5 Wrist extensors 5/5 Wrist flexors 0/5 Wrist flexors 5/5 Dorsal interossei 0/5 Dorsal interossei 5/5 Abductor pollicis 0/5 Abductor pollicis 5/5 Finger flexion 2/5 Tone (Jesse scale) 2 Tone (Jesse scale) 0 RUE proximal spasticity Right Lower Extremity: Left Lower Extremity: Hip flexors 1/5 Hip flexors 5/5 Hip extensors 0/5 Hip extensors 5/5 Knee flexors 0/5 Knee flexors 5/5 Knee extensors 0/5 Knee extensors 5/5 Dorsiflexors 0/5 Dorsiflexors 5/5 Plantarflexors 0/5 Plantarflexors 5/5 Toe extensors 0/5 Toe extensors 5/5 Toe flexors 0/5 Toe flexors 5/5 Tone (Jesse scale) 0 Tone (Jesse scale) 0 Reflexes: brachioradialis +++ brachioradialis ++ biceps +++ biceps ++ triceps +++ triceps ++ patellar +++ patellar +++ Achilles +++ Achilles ++ clonus absent clonus absent plantar response NT plantar response NT Coordination: Upper extremity dexterity and rapid movements: limited by weakness on the right. Finger-nose: could not test Heel-rogers: could not test Sensory Perception: Decreased PP and ST of the right with some areas of hyperesthesia. Standing balance: Not tested, WC bound Standard gait: Non ambulatory Tandem walking: Non ambulatory RESULTS: Component Latest Ref Rng AND Units 09/22/2021 10/20/2021 WBC 3.70 - 11.00 k/uL 6.57 RBC 3.90 - 5.20 m/uL 4.51 Hemoglobin 11.5 - 15.5 g/dL 11.6 Hematocrit 36.0 - 46.0 % 36.9 MCV 80.0 - 100.0 fL 81.8 MCH 26.0 - 34.0 pg 25.7 (L) (more content not included)... Normal [facility] CT ABD/PELVIS WO CONon 01-04 CT ABD/PELVIS WO CON EXAMINATION: CT ABD /PELVIS WO CON HISTORY: Epigastric pain ; intermittent abdominal pain, hernia COMPARISON: CT abdomen pelvis 03/13/2018 TECHNIQUE: Axial, Coronal, and Sagittal images were obtained without and/or with IV contrast as indicated by examination type. Dose reduction techniques were achieved by using automated exposure control and/or adjustment of mA and/or kV according to patient size and/or use of iterative reconstruction technique. FINDINGS: LUNG BASES: No visible pulmonary or pleural disease. LIVER: Fatty infiltration. No enlargement, atrophy, suspicious density, or significant focal lesion. BILIARY: No dilatation or calcification. PANCREAS: No lesion, fluid collection, or abnormal duct dilatation. SPLEEN: No enlargement or focal lesion. ADRENALS: No mass or enlargement. KIDNEYS: No mass, obstruction, or calcification. BOWEL/MESENTERY: No visible mass, obstruction, or bowel wall thickening. AORTA/VASCULAR: No aneurysm or dissection. RETROPERITONEUM: No mass or adenopathy. LYMPH NODES: No adenopathy. URINARY BLADDER: Nondistended with Márquez catheter in place. PELVIC ORGANS: Hysterectomy. Bilateral ovarian follicles. ABDOMINAL WALL: Tiny fat filled umbilical hernia without strangulation. BONES: Neurostimulator pack within right flank with electrodes extending into mid thoracic central canal. L5-S1 marked degenerative disc disease. OTHER: Negative. IMPRESSION: 1. Tiny fat filled umbilical hernia without strangulation or suspicious findings. 2. No specific findings to account for patient's symptoms. 3. Mid thoracic spine central canal neurostimulators, and L5-S1 marked degenerative disc disease. Electronically authenticated by: DINORAH REDD Date: 2022-01-04 15:59 Normal [facility] No Panel Informationon 10-27 [facility] VAHE/ANGIOTENSIN BLDon 2021 Angiotensin converting enzyme [Catalytic activity/Vol] 57 U/L High <=52 U/L [facility] C-REACTIVE PROTEIN (CRP)on 0 10-20-2021 CRP [Mass/Vol] 1.4 mg/dL High <0.9 mg/dL [facility] CBC W Auto Differential pane l (Bld)on 10-20-2021 Abs Immature Gran 0.03 k/uL <0.10 k/uL [facility] Basophils (Bld) [#/Vol] 0.04 10*3/uL <0.11 k/uL [facility] Basophils/100 WBC (Bld) 0.6 % [facility] Differential cell count method Nom (Bld) Auto [facility] Eosinophils (Bld) [#/Vol] 0.03 10*3/uL <0.46 k/uL [facility] Eosinophils/100 WBC (Bld) 0.5 % [facility] Erythrocyte distribution width (RBC) [Ratio] 14.6 % 11.5 - 15.0 % [facility] Hematocrit (Bld) [Volume fraction] 36.9 % 36.0 - 46.0 % [facility] Hemoglobin (Bld) [Mass/Vol] 11.6 g/dL 11.5 - 15.5 g/dL [facility] Immature Gran % 0.5 % [facility] Lymphocytes (Bld) [#/Vol] 1.66 10*3/uL 1.00 - 4.00 k/uL [facility] Lymphocytes/100 WBC (Bld) 25.3 % [facility] MCH (RBC) [Entitic mass] 25.7 pg Low 26.0 - 34.0 pg [facility] MCHC (RBC) [Mass/Vol] 31.4 g/dL 30.5 - 36.0 g/dL [facility] MCV (RBC) [Entitic vol] 81.8 fL 80.0 - 100.0 fL [facility] Monocytes (Bld) [#/Vol] 0.34 10*3/uL <0.87 k/uL [facility] Monocytes/100 WBC (Bld) 5.2 % [facility] Neutrophils (Bld) [#/Vol] 4.47 10*3/uL 1.45 - 7.50 k/uL [facility] Neutrophils/100 WBC (Bld) 67.9 % [facility] Nucleated RBC (Bld) [#/Vol] <0.01 k/uL [facility] Nucleated RBC/100 WBC (Bld) [Ratio] 0.0 /100 WBC [facility] Platelet mean volume (Bld) [Entitic vol] 12.7 fL 9.0 - 12.7 fL [facility] Platelets (Bld) [#/Vol] 227 10*3/uL 150 - 400 k/uL [facility] RBC (Bld) [#/Vol] 4.51 10*6/uL 3.90 - 5.20 m/uL [facility] WBC (Bld) [#/Vol] 6.57 10*3/uL 3.70 - 11.00 k/uL [facility] Comprehensive metabolic 2000 panelon 10-20-2021 Albumin [Mass/Vol] 4.7 g/dL 3.9 - 4.9 g/dL [facility] ALP [Catalytic activity/Vol] 80 U/L 34 - 123 U/L [facility] ALT [Catalytic activity/Vol] 34 U/L 7 - 38 U/L [facility] Anion gap [Moles/Vol] 13 mmol/L 9 - 18 mmol/L [facility] AST [Catalytic activity/Vol] 41 U/L High 13 - 35 U/L [facility] Bilirubin [Mass/Vol] 0.2 mg/dL 0.2 - 1 .3 mg/dL [facility] Calcium [Mass/Vol] 9.8 mg/dL 8.5 - 10. 2 mg/dL [facility] Chloride [Moles/Vol] 99 mmol/L 97 - 10 5 mmol/L [facility] CO2 [Moles/Vol] 25 mmol/L 22 - 30 mmol/L [facility] Creatinine [Mass/Vol] 0.77 mg/dL 0.58 - 0.96 mg/dL [facility] Estimated Glomerular Filtration Rate 95 mL/min/1.73m >=60 mL/min/1.7 3m [facility] Glucose [Mass/Vol] 125 mg/dL High 74 - 99 mg/dL [facility] Potassium [Moles/Vol] 4.3 mmol/L 3.7 - 5.1 mmol/L [facility] Protein [Mass/Vol] 6.3 g/dL 6.3 - 8.0 g/dL [facility] Sodium [Moles/Vol] 137 mmol/L 136 - 144 mmol/L [facility] Urea nitrogen [Mass/Vol] 13 mg/dL 7 - 21 mg/dL [facility] ESR Westergren method (Bld) [Velocity]on 10-20-2021 ESR (Bld) [Velocity] 10 mm/h 0 - 20 mm/hr [facility] CT CHEST WO IVCONon 10-07-19 [facility] VAHE/ANGIOTENSIN [facility] 2021 Angiotensin converting enzyme [Catalytic activity/Vol] 51 U/L <=52 U/L [facility] C3 COMPLEMENT [facility] 09-22-19 Complement C3 [Mass/Vol] 206 mg/dL High 86 - 166 mg/dL [facility] C4 COMPLEMENT [facility] 09-22-19 Complement C4 [Mass/Vol] 31 mg/dL 13 - 46 mg/dL [facility] RHEUMATOID FACTOR BLon 09-21 Rheumatoid factor Qn [IU]/mL <16 IU/mL [facility] VITAMIN B12 BLOODon 09-22-19 22 Cobalamin (Vitamin B12) [Mass/Vol] 611 pg/mL 232-1,245 pg/mL [facility] ALLIED HEALTHon 03-28-2018 ALLIED HEALTH HNO ID: [id number] Author: Janey Ruiz (Rt) Service: Radiology Author Type: Return Agent Airport Type: [facility] Filed: 03/28/2018 3:48 PM Note Text: Radiology Service Progress Note PATIENT NAME: Jessica Gutierrez DATE OF SERVICE: March 28, 2018 TIME: 3:48 PM PATIENT IDENTITY VERIFICATION COMPLETED USING TWO (2) METHODS: Patient confirmed name verbally and ID band matches.. PATIENT GENDER DATA: Female. status: : No status: NO. PATIENT RELEVANT IMPLANT DATA REVIEWED: Not Applicable RADIOLOGY DEPARTMENT: General X-ray: Exam(s) Completed: Chest X-Ray Abdomen X-Ray Abdomen PERIPHERAL IV DATA: Not applicable SIGNED BY: RT Joseph March 28, 2018 3:48 PM Normal [facility] CBC and Differentialon 03-28 Abs Baso <0.03 Normal <0.11 [facility] Comment on above: Performed By: #### C BCDIF, CMP, LIPA #### [place] [id number] Abs Braxton 0.38 k/uL Normal <0.87 [facility] Comment on above: Performed By: #### C BCDIF, CMP, LIPA #### [place] [address] Abs Neut 3.99 k/uL Normal 1.45-7.50 [facility] Comment on above: Performed By: #### C BCDIF, CMP, LIPA #### [place] [phone] Basophils/100 WBC (Bld) 0.2 % Normal [facility] Comment on above: Performed By: #### C BCDIF, CMP, LIPA #### [place] [id number] DTYPE Auto Diff Normal [facility] Comment on above: Performed By: #### C BCDIF, CMP, LIPA #### [place] [phone] Eosinophils #/vol (Bld) 0.07 10*3/uL Normal <0.46 [facility] Comment on above: Performed By: #### C BCDIF, CMP, LIPA #### [place] [address] Eosinophils/100 WBC (Bld) 1.1 % Normal [facility] Comment on above: Performed By: #### C BCDIF, CMP, LIPA #### [place] [address] Erythrocyte distribution width Ratio (RBC) 12.8 % Normal 11.5-15.0 [facility] Comment on above: Performed By: #### C BCDIF, CMP, LIPA #### [place] [address] Hematocrit Volume Fraction (Bld) 38.4 % Normal 36.0-46.0 [facility] Comment on above: Performed By: #### C BCDIF, CMP, LIPA #### [place] [address] Hemoglobin mass conc (Bld) 12.9 g/dL Normal 11.5-15.5 [facility] Comment on above: Performed By: #### C BCDIF, CMP, LIPA #### [place] [address] Lymphocytes #/vol (Bld) 1.83 10*3/uL Normal 1.00-4.00 [facility] Comment on above: Performed By: #### C BCDIF, CMP, LIPA #### [place] [address] Lymphocytes/100 WBC (Bld) 29.1 % Normal [facility] Comment on above: Performed By: #### C BCDIF, CMP, LIPA #### [address] MCH Entitic mass (RBC) 29.6 pG Normal 26.0-34.0 [facility] Comment on above: Performed By: #### C BCDIF, CMP, LIPA #### [place] [phone] MCHC mass conc (RBC) 33.6 g/dL Normal 30.5-36.0 [facility] Comment on above: Performed By: #### C BCDIF, CMP, LIPA #### [place] [phone] MCV Entitic volume (RBC) 88.1 fL Normal 80.0-100.0 [facility] Comment on above: Performed By: #### C BCDIF, CMP, LIPA #### [place] [phone] Monocytes/100 WBC (Bld) 6.1 % Normal [facility] Comment on above: Performed By: #### C BCDIF, CMP, LIPA #### [place] [phone] Neutrophils/100 WBC (Bld) 63.5 % Normal [facility] Comment on above: Performed By: #### C BCDIF, CMP, LIPA #### [place] [phone] Platelet mean volume Entitic volume (Bld) 11.6 fL Normal 9.0-12.7 [facility] Comment on above: Performed By: #### C BCDIF, CMP, LIPA #### [phone] Platelets #/vol (Bld) 179 10*3/uL Normal 150-400 [facility] Comment on above: Performed By: #### C BCDIF, CMP, LIPA #### [place] [phone] RBC #/vol (Bld) 4.36 10*6/uL Normal 3.90-5.20 [facility] Comment on above: Performed By: #### C BCDIF, CMP, LIPA #### [place] [phone] WBC #/vol (Bld) 6.28 10*3/uL Normal 3.70-11.00 [facility] Comment on above: Performed By: #### C BCDIF, CMP, LIPA #### [place] [phone] Comp Metabolic Panelon 03-28 Albumin mass conc 4.4 g/dL Normal 3.5-5.0 [facility] Comment on above: Performed By: #### C BCDIF, CMP, LIPA #### [place] [phone] ALP enzyme act/vol 73 U/L Normal 34-123 [facility] Comment on above: Performed By: #### C BCDIF, CMP, LIPA #### [place] [phone] ALT enzyme act/vol 19 U/L Normal 0-45 [facility] Comment on above: Performed By: #### C BCDIF, CMP, LIPA #### [address] Anion gap molar conc 13 mmol/L Normal 9-18 [facility] Comment on above: Performed By: #### C BCDIF, CMP, LIPA #### [place] [address] AST enzyme act/vol 20 U/L Normal 7-40 [facility] Comment on above: Performed By: #### C BCDIF, CMP, LIPA #### [place] [phone] Bilirubin mass conc 0.3 mg/dL Normal 0.2-1.3 [facility] Comment on above: Performed By: #### C BCDIF, CMP, LIPA #### [place] [phone] Calcium mass conc 9.0 mg/dL Normal 8.5-10.5 [facility] Comment on above: Performed By: #### C BCDIF, CMP, LIPA #### [place] [phone] Chloride molar conc 105 mmol/L Normal 98-110 [facility] Comment on above: Performed By: #### C BCDIF, CMP, LIPA #### [place] [phone] CO2 molar conc 23 mmol/L Normal 23-32 [facility] Comment on above: Performed By: #### C BCDIF, CMP, LIPA #### [place] [phone] Creatinine mass conc 0.80 mg/dL Normal 0.70-1.40 [facility] Comment on above: Performed By: #### C BCDIF, CMP, LIPA #### [place] [phone] eGFR- Amer. >60 Normal >60 [facility] Comment on above: Performed By: #### C BCDIF, CMP, LIPA #### [place] [phone] GFR/1.73 sq M predicted among non-blacks MDRD vol rate/area (S/P/Bld) mL/min/{1.73_m2} Normal >60 [facility] Comment on above: Performed By: #### C BCDIF, CMP, LIPA #### [place] [phone] Glucose mass conc 86 mg/dL Normal 65-100 [facility] Comment on above: Performed By: #### C BCDIF, CMP, LIPA #### [place] [phone] Potassium molar conc 3.9 mmol/L Normal 3.5-5.0 [facility] Comment on above: Performed By: #### C BCDIF, CMP, LIPA #### [facility] [address] [place] [address] Protein mass conc 7.0 g/dL Normal 6.0-8.4 [facility] Comment on above: Performed By: #### C BCDIF, CMP, LIPA #### [facility] [address] [place] [address] Sodium molar conc 141 mmol/L Normal 132-148 [facility] Comment on above: Performed By: #### C BCDIF, CMP, LIPA #### [facility] [address] [place] [address] Urea nitrogen mass conc 13 mg/dL Normal 8-25 [facility] Comment on above: Performed By: #### C BCDIF, CMP, LIPA #### [facility] [address] [place] [address] ED NOTEon 03-28-2018 ED NOTE HNO ID: [id number] Author: Mary Newton) OCTAVIO Camara Service: Nursing Author Type: Registered Nurse Type: ED Notes Filed: 03/28/2018 8:51 PM Note Text: Pt comprehends and verbalizes understanding of discharge instructions, medications reviewed and verbalizes proper follow up care. Signs and symptoms reviewed on when to return to emergency department. AANDOx3. Pt ambulatory out of ER to home. [facility] ED NOTE HNO ID: [id number] Author: Zeeshan Newton) [place], OCTAVIO Service: (none) Author Type: Registered Nurse Type: ED Notes Filed: 03/28/2018 7:06 PM Note Text: Report given to Mary [place] [facility] ED NOTE HNO ID: [id number] Author: Zeeshan Newton) [place], OCTAVIO Service: (none) Author Type: Registered Nurse Type: ED Notes Filed: 03/28/2018 6:21 PM Note Text: Straight cath urine specimen obtained and sent. [facility] ED PROV NOTEon 03-28-2018 Protein mass conc HNO ID: [id number] Author: Sarah Andersen (Pa) Service: (none) Author Type: Physician Incident Commander Type: ED Provider Notes Filed: 03/28/2018 7:29 PM Note Text: ED Provider Note Patient Name: Jessica uGtierrez SERVICE DATE: 03/28/18 History Patient presents with: Abdominal Pain: states abd pain worsening since surgery in jan. Nausea AND Vomiting Diarrhea 42-year-old female presents ED with abdominal pain. Patient had a neurostimulator placed back in January at an outside hospital. Immediately after the procedure she had urinary retention and has had a Márquez catheter since. She reports since the procedure she's had daily abdominal pain. Worse pain is in the epigastric region. She reports she's been constipated since the procedure. She has to take MiraLAX and lactulose daily in order to have a bowel movement. If she does not take his medication she is unable to have a bowel movement. She reports when she has a bowel movement it appeared liquid. Denies blood in the stool. She also reports she's been unable to eat or drink for the last week. Anytime she eats anything epigastric pain worsens and she throws up. No history of abdominal surgeries. She reports she has a appointment scheduled with GI Dr. Price April 08. PAST MEDICAL HISTORY Diagnosis Date - Hypoglycemic reaction - Iritis 02/2016 PAST SURGICAL HISTORY Procedure Laterality Date - HYSTERECTOMY HX FAMILY HISTORY Problem Relation Age of Onset - Hypertension Father - Arthritis Father - Diabetes Father - Stroke Mother - Cancer Mother - Heart Mother COPD - Cataract Maternal Grandmother - Cataract Maternal Grandfather - Cataract Paternal Grandmother - Cataract Paternal Grandfather Social History Social History Main Topics - Smoking status: Never Smoker - Smokeless tobacco: Never Used - Alcohol use No - Drug use: No - Sexual activity: Not on file ALLERGIES Allergen Reactions - Cabbage Vomiting - Gadolinium-Containi* Anaphylaxis Review of Systems Constitutional: Positive for appetite change. Negative for chills and fever. HENT: Negative for congestion, rhinorrhea and sore throat. Eyes: Negative for photophobia and visual disturbance. Respiratory: Negative for cough and shortness of breath. Cardiovascular: Negative for chest pain. Gastrointestinal: Positive for abdominal pain, constipation, nausea and vomiting. Negative for diarrhea. Genitourinary: Negative for difficulty urinating, dysuria, frequency, hematuria, urgency, vaginal bleeding and vaginal discharge. Musculoskeletal: Negative for arthralgias and myalgias. Skin: Negative for color change. Neurological: Negative for dizziness, syncope, weakness and headaches. Hematological: Negative. All other systems reviewed and are negative. Physical Exam BP 151/92 Pulse 92 Temp (Src) 98.6 (Oral) Resp 16 Ht 5' 5 (1.65m) Wt 185 lb (83.9kg) SpO2 100% BMI 30.79 kg/(m2). Physical Exam Constitutional: She is oriented to person, place, and time. She appears well-developed and well-nourished. HENT: Head: Normocephalic and atraumatic. Right Ear: External ear normal. Left Ear: External ear normal. Nose: Nose normal. Mouth/Throat: Oropharynx is clear and moist. Appears dry with dry cracked lips. Eyes: Pupils are equal, round, and reactive to light. Conjunctivae are normal. Neck: Normal range of motion. Neck supple. Cardiovascular: Normal rate, regular rhythm, normal heart sounds and intact distal pulses. Pulmonary/Chest: Effort normal and breath sounds normal. She has no wheezes. She has no rales. Abdominal: Soft. Bowel sounds are normal. There is tenderness. There is no rebound and no guarding. Diffuse abdominal tenderness, more tender in the epigastric region Musculoskeletal: Normal range of motion. Neurological: She is alert and oriented to person, place, and time. Skin: Skin is warm and dry. Psychiatric: She has a normal mood and affect. Nursing note and vitals reviewed. Diagnostic Testing ED Labs Ordered and Reviewed - No data to display XR ACUTE ABD SERIES 3V (2V ABD/1V CXR) Final Result IMPRESSION: NONOBSTRUCTIVE BOWEL GAS PATTERN Manager Rehab: [facility] Transcribe Date/Time: Mar 28 2018 3:53P Dictated by : FARIDEH ARIAS MD This examination was interpreted and the report reviewed and electronically signed by: FARIDEH ARIAS MD on Mar 28 2018 3:53PM EST Procedures ED Course / Clinical Impression Clinical Impressions as of Mar 28 1918 Generalized abdominal pain Constipation, unspecified constipation type MDM / Disposition / Plan 42-year-old female presents to ED with abdominal pain. Patient had neurostimulator placed in January. Following procedure she had urinary retention has had a indwelling Márquez catheter since. She reports since January she's had daily abdominal pain. Generalized but has worsened in the epigastric region. She reports she's been having issues with constipation. She has a take MiraLAX and lactulose daily, when she does not take these medications she is unable to have a bowel movement. She reports she's been unable to eat or drink, every time she eats she throws up. Patient arrives ED afebrile, stable CBC within normal limits CMP within normal limits Lipase within normal limits Abdominal x-ray negative Urine large esterase, many WBCs; patient has a indwelling Márquez catheter. Afebrile, no white count; will wait for urine culture for antibiotics if needed Patient remained stable. Epigastric abdominal tenderness. Labs and imaging are unremarkable. Has had chronic abdominal pain since her surgery in January. Has been having issues with daily constipation, as needed take MiraLAX and lactulose daily. She reports she's been seen at outside hospital where she had the procedure. March 05 she had an MRI and there is no evidence of spinal cord damage secondary to the recent procedure. She reports she seen her neurologist and the surgeon who is unsure of why she is having the symptoms. Patient reports she came to our ED for a second opinion. She reports she came to the [facility] to figure out what was wrong with her. Patient reports she is sick of having daily abdominal pain with digestive issues. No acute abnormality was found on labs today. Electrolytes are within normal limits. No signs of acute surgical abdomen. Discussed the patient she'll need to follow up with GI for further evaluation. Possibly need an endoscopy and colonoscopy. She has an appointment with Dr. Priec April 08. Patient was agreeable to discharge. She was also given another referral to GI if she can be seen sooner. SIGNATURE: GRISEL Moreno) Ganesh 03/28/181919 Sarah Toscano) Ganesh 03/28/181928 Normal [facility] Lipaseon 03-28-2018 Lipase enzyme act/vol 27 U/L Normal 12-70 [facility] Comment on above: Performed By: #### C BCDIF, CMP, LIPA #### [place] [id number] [place] [address] Urinalysis with Microscopico n 03-28-2018 Bacteria LM.HPF #/area (Urine sed) Few Critically abnormal Negative [facility] Comment on above: Performed By: #### U AWMIC #### [place] [id number] [place] [id number] Bilirubin, Urine Negative Normal [facility] Comment on above: Performed By: #### U AWMIC #### [place] [address] Clarity Nom (U) Hazy Critically abnormal Clear [facility] Comment on above: Performed By: #### U AWMIC #### [place] [address] Color Nom (U) Yellow Normal Yellow [facility] Comment on above: Performed By: #### U AWMIC #### [address] Comments SEE COMMENT Normal [facility] Comment on above: Result Comment: Micr oscopic Examination Performed Performed By: #### U AWMIC #### [place] [id number] Epithelial cells LM.HPF #/area (Urine sed) SEE COMMENT Critically abnormal Negative [facility] Comment on above: Result Comment: Rare Squamous Epithelial Cells Performed By: #### U AWMIC #### [address] Glucose Ql (U) Negative Normal [facility] Comment on above: Performed By: #### U AWMIC #### [place] [address] Hemoglobin/Blood,Ur Moderate Critically abnormal Negative [facility] Comment on above: Performed By: #### U AWMIC #### [place] [id number] Ketones Ql (U) Trace Critically abnormal Negative [facility] Comment on above: Performed By: #### U AWMIC #### [place] [id number] Leukest Large Critically abnormal [facility] Comment on above: Performed By: #### U AWMIC #### [address] Mucus Ql (Urine sed) Present Normal [facility] Comment on above: Performed By: #### U AWMIC #### [place] [address] Nitrite Ql (U) Negative Normal Negative [facility] Comment on above: Performed By: #### U AWMIC #### [place] [address] pH (Bld) 6.0 Normal 5.0-8.0 [facility] Comment on above: Performed By: #### U AWMIC #### [place] [address] Protein mass conc (U) 100 mg/dL Critically abnormal Negative [facility] Comment on above: Performed By: #### U AWMIC #### [place] [address] RBC #/vol (U) Many Critically abnormal Negative [facility] Comment on above: Performed By: #### U AWMIC #### [place] [address] Specific [place], Ur 1.021 Normal 1.005-1 .03 0 [facility] Comment on above: Performed By: #### U AWMIC #### [place] [address] Urobilinogen Qn (U) <2.0 Normal <2.0 [facility] Comment on above: Performed By: #### U AWMIC #### [place] [address] WBC #/vol (Bld) Many Critically abnormal Negative [facility] Comment on above: Performed By: #### U AWMIC #### [place] [address] Urine Cultureon 03-28-2018 Bacteria identified Cx Nom (U) Sp. Request/Comment: - Specimen received in preservative Culture Result - 10,000 - <50,000 CFU/ml Maryann lusitaniae --> ABNORMAL ALERT Critically abnormal [facility] Comment on above: Performed By: #### C BCDIF, CMP, LIPA #### [facility] [id number] [place] [id number] XR ACUTE ABD SERIES 2V ABD+C XRon 03-28-2018 XR ACUTE ABD SERIES 2V ABD+CXR * * *Final Report* * * DATE OF EXAM: Mar 28 2018 3:51PM [id number] - XR ACUTE ABD SERIES 2V ABD+CXR / PROCEDURE REASON: Abd pain, unspecified * * * * Physician Interpretation * * * * EXAMINATION: XR ACUTE ABD SERIES 2V ABD+CXR Clinical history: Pain RESULT: Right sided abdominal spinal stimulator device, leads terminating at the level of T9. The lung barone are clear. No dilated bowel loops seen. Mild stool in the colon IMPRESSION: NONOBSTRUCTIVE BOWEL GAS PATTERN Manager Rehab: CJ Transcribe Date/Time: Mar 28 2018 3:53P Dictated by : FARIDEH ARIAS MD This examination was interpreted and the report reviewed and electronically signed by: FARIDEH ARIAS MD on Mar 28 2018 3:53PM EST [id number] Normal [facility] No Panel Information [facility] Vital Signs Date Time Vital Sign Value Performing Clinician [facility] [place] 02-07-2023 08:26-0500 Diastolic blood pressure 84 mm[Hg] Camilo Deras [facility] 02-07-2023 08:26-0500 Diastolic blood pressure 73 mm[Hg] Camilo Deras [facility] 02-07-2023 08:26-0500 Heart rate 81 /min Camilo Deras [facility] 02-07-2023 08:26-0500 Heart rate 82 /min Camilo Deras [facility] 02-07-2023 08:26-0500 Mean blood pressure 95 mm[Hg] Camilo Deras [facility] 02-07-2023 08:26-0500 Respiratory rate 16 /min Camilo Deras [facility] 02-07-2023 08:26-0500 Systolic blood pressure 118 mm[Hg] Camilo Deras [facility] 02-07-2023 08:26-0500 Systolic blood pressure 117 mm[Hg] Camilo Deras [facility] 01-30-2023 13:16-0500 Diastolic blood pressure 83 mm[Hg] Haile Barrios MD Work Phone: [facility] 01-30-2023 13:16-0500 Heart rate 84 /min Haile Barrios MD Work Phone: [facility] 01-30-2023 13:16-0500 SaO2% (BldA) [Mass fraction] 97 % Haile Barrios MD Work Phone: [facility] 01-30-2023 13:16-0500 Systolic blood pressure 114 mm[Hg] Haile Barrios MD Work Phone: [facility] 12-20-2022 11:35-0400 Diastolic blood pressure 85 mm[Hg] Camilo Deras [facility] 12-20-2022 11:35-0400 Heart rate 77 /min Camilo Deras [facility] 12-20-2022 11:35-0400 Mean blood pressure 98 mm[Hg] Page Deras [facility] 12-20-2022 11:35-0400 Respiratory rate 14 /min Camilo Deras [facility] 12-20-2022 11:35-0400 Systolic blood pressure 123 mm[Hg] Camilo Deras [facility] 07-02-2022 17:10-0400 Diastolic blood pressure 87 mm[Hg] MD Francesco Quinteros Work Phone: [facility] 07-02-2022 17:10-0400 Heart rate 83 /min MD Francesco Quinteros Work Phone: [facility] 07-02-2022 17:10-0400 Respiratory rate 16 /min MD Francesco Quinteros Work Phone: [facility] 07-02-2022 17:10-0400 SaO2% (BldA) [Mass fraction] 96 % MD Francesco Quinteros Work Phone: [facility] 07-02-2022 17:10-0400 Systolic blood pressure 142 mm[Hg] MD Francesco Quinteros Work Phone: [facility] 07-02-2022 15:56-0400 Body temperature 97 [degF] MD Francesco Quinteros Work Phone: [facility] 07-02-2022 15:32-0400 Inhaled oxygen flow rate 8 L/min MD Francesco Quinteros Work Phone: [facility] 07-02-2022 14:49-0400 Body mass index (BMI) [Ratio] 33.3 kg/m2 MD Francesco Quinteros Work Phone: [facility] 07-02-2022 14:07-0400 Body height 165.1 cm MD Francesco Quinteros Work Phone: [facility] 07-02-2022 14:07-0400 Body weight 90.71 kg MD Francesco Quinteros Work Phone: [facility] 05-30-2022 14:31-0400 Diastolic blood pressure 65 mm[Hg] Remi Zumbar [facility] 05-30-2022 14:31-0400 Heart rate 82 /min Remi Zumbar [facility] 05-30-2022 14:31-0400 Mean blood pressure 80 mm[Hg] Remi Zumbar [facility] 05-30-2022 14:31-0400 Respiratory rate 16 /min Remi Griffinumbar [facility] 05-30-2022 14:31-0400 Systolic blood pressure 110 mm[Hg] Remi Zumbar [facility] 03-28-2022 10:09-0500 Diastolic blood pressure 73 mm[Hg] Marilia Hehr PA-C Work Phone: [facility] 03-28-2022 10:09-0500 Heart rate 91 /min Marilia Hehr PA-C Work Phone: [facility] 03-28-2022 10:09-0500 Respiratory rate 16 /min Marilia Hehr PA-C Work Phone: [facility] 03-28-2022 10:09-0500 SaO2% (BldA) [Mass fraction] 98 % Marilia Hehr PA-C Work Phone: [facility] 03-28-2022 10:09-0500 Systolic blood pressure 132 mm[Hg] Marilia Hehr PA-C Work Phone: [facility] 02-07-2022 12:54-0500 Body height 165.1 cm Jose Hassan MD Work Phone: [facility] 02-07-2022 12:54-0500 Body weight 95.25 kg Jose Hassan MD Work Phone: [facility] 02-07-2022 12:54-0500 Diastolic blood pressure 85 mm[Hg] Jose Hassan MD Work Phone: [facility] 02-07-2022 12:54-0500 Heart rate 85 /min Jose Hassan MD Work Phone: [facility] 02-07-2022 12:54-0500 Systolic blood pressure 126 mm[Hg] Jose Hassan MD Work Phone: [facility] 01-24-2022 12:21-0500 Diastolic blood pressure 86 mm[Hg] Remi Zumbar [facility] 01-24-2022 12:21-0500 Heart rate 86 /min Remi Zumbar [facility] 01-24-2022 12:21-0500 Mean blood pressure 103 mm[Hg] Remi Zumbar [facility] 01-24-2022 12:21-0500 Respiratory rate 16 /min Remi Zumbar [facility] 01-24-2022 12:21-0500 Systolic blood pressure 138 mm[Hg] Remi Zumbar [facility] 01-18-2022 13:07-0500 Blood Pressure Location Landry NILL [facility] [place] 01-18-2022 13:07-0500 Diastolic blood pressure 83 mm[Hg] Landry NILL [facility] 01-18-2022 13:07-0500 Heart rate 73 /min Landry NILL [facility] 01-18-2022 13:07-0500 Respiratory rate 16 /min Landry NILL [facility] 01-18-2022 13:07-0500 Systolic blood pressure 128 mm[Hg] Landry NILL [facility] 10-20-2021 08:33-0400 Body temperature 97.3 [degF] Urszula Sood MD Work Phone: [facility] 10-20-2021 08:33-0400 Diastolic blood pressure 78 mm[Hg] Urszula Sood MD Work Phone: [facility] 10-20-2021 08:33-0400 Heart rate 85 /min Urszula Sood MD Work Phone: [facility] 10-20-2021 08:33-0400 Systolic blood pressure 131 mm[Hg] Urszula Sood MD Work Phone: [facility] 09-22-2021 07:00-0400 Body height 165.1 cm Ne[facility] Access Work Phone: [facility] 09-22-2021 07:00-0400 Body weight 90.72 kg [facility] Access Work Phone: [facility] 09-22-2021 07:00-0400 Diastolic blood pressure 56 mm[Hg] [facility] Access Work Phone: [facility] 09-22-2021 07:00-0400 Heart rate 79 /min [facility] Work Phone: [facility] 09-22-2021 07:00-0400 Systolic blood pressure 119 mm[Hg] Neur Access Work Phone: [facility] 09-21-2021 10:43-0400 Body height 152.4 cm Justina Fuentse MD Work Phone: [facility] 09-21-2021 10:43-0400 Body weight 90.72 kg Justina Fuentes MD Work Phone: [facility] 09-21-2021 10:43-0400 Diastolic blood pressure 62 mm[Hg] Justina Fuentes MD Work Phone: [facility] 09-21-2021 10:43-0400 Heart rate 83 /min Justina Fuentes MD Work Phone: [facility] 09-21-2021 10:43-0400 Systolic blood pressure 141 mm[Hg] Justina Fuentes MD Work Phone: [facility] 08-30-2021 12:17-0400 Body height 165.1 cm Kentrell Guardado PA-C Work Phone: [facility] 08-30-2021 12:17-0400 Body weight 90.72 kg Kentrell Guardado PA-C Work Phone: [facility] 06-01-2021 08:57-0400 Diastolic blood pressure 75 mm[Hg] Remi Zumbar [facility] 06-01-2021 08:57-0400 Heart rate 82 /min Remi Zumbar [facility] 06-01-2021 08:57-0400 Mean blood pressure 98 mm[Hg] Remi Zumbar [facility] 06-01-2021 08:57-0400 Respiratory rate 18 /min Remi Zumbar [facility] 06-01-2021 08:57-0400 Systolic blood pressure 144 mm[Hg] Remi Zumbar [facility] Encounters Encounter Date Encounter Type Care Provider Facility Start: 02-07-2023 End: 02-08-2023 ambulatory Camilo Deras [place] [place] Start: 02-07-2023 End: 02-07-2023 Pain Management Camilo Deras [facility] Start: 01-30-2023 End: 01-30-2023 ambulatory FRANCESCO QUINTEROS Facility:[facility] Start: 01-30-2023 End: 01-30-2023 Patient encounter procedure Haile Barrios MD Work Phone: [facility] Comment on above: Spastic hemiparesis affecting dominant side (HCC) (Primary Dx); Acute transverse myelitis (HCC) Start: 01-23-2023 End: 01-24-2023 ambulatory Candido PRINCE Facility:[facility] Start: 01-23-2023 End: 01-23-2023 Patient encounter procedure Candido PRINCE [facility] [place] Start: 01-18-2023 ambulatory DESIREE ENRIQUEZ [place] [place] Start: 01-01-2023 End: 01-02-2023 ambulatory Yaakov GREENWOOD [place]: [place] Start: 12-20-2022 End: 12-21-2022 ambulatory Camilo Deras [place] [place] Start: 12-20-2022 End: 12-20-2022 Pain Management Camilo Deras [facility] Start: 12-11-2022 End: 12-12-2022 ambulatory Yaakov GREENWOOD Facility: [place] Start: 12-11-2022 End: 12-11-2022 Patient encounter procedure Yaakov GREENWOOD [facility] [place] Start: 11-20-2022 End: 11-21-2022 ambulatory Yaakov GREENWOOD Facility: [place] Start: 11-20-2022 End: 11-20-2022 Patient encounter procedure Yaakov GREENWOOD [facility] [place] Start: 10-31-2022 End: 10-31-2022 ambulatory FRANCESCO QUINTEROS Facility:[facility] Start: 10-30-2022 End: 10-31-2022 ambulatory Candido PRINCE Facility:[facility] Start: 10-30-2022 End: 10-30-2022 Patient encounter procedure Candido PRINCE [facility] [place] Start: 10-11-2022 End: 10-12-2022 ambulatory MARILIA CR Facility:[facility] [place] Start: 10-11-2022 End: 10-11-2022 Patient encounter procedure MARILIA CR [facility] [place] Start: 09-18-2022 End: 09-19-2022 ambulatory Yaakov GREENWOOD Facility:[facility] [place] Start: 09-18-2022 End: 09-18-2022 Patient encounter procedure Yaakov GREENWOOD [facility] Start: 08-03-2022 End: 08-03-2022 ambulatory FRANCESCO QUINTEROS Facility:[facility] Start: 08-03-2022 End: 08-03-2022 Patient encounter procedure Haile Barrios MD Work Phone: [facility] Comment on above: Spastic hemiparesis affecting dominant side (HCC) (Primary Dx); Acute transverse myelitis (HCC); Chronic right shoulder pain; Dysphagia, unspecified type Start: 07-31-2022 End: 08-01-2022 ambulatory Yaakov GREENOWOD Facility:[facility] Start: 07-31-2022 End: 07-31-2022 Patient encounter procedure Yaakov GREENWOOD [facility] Start: 07-12-2022 End: 07-12-2022 ambulatory LILIA NIELSEN Facility: Start: 07-03-2022 End: 07-04-2022 ambulatory Yaakov GREENWOOD Facility:[facility] [place] Start: 07-03-2022 End: 07-03-2022 Patient encounter procedure Yaakov GREENWOOD [facility] Start: 07-02-2022 End: 07-02-2022 ambulatory Francesco Quinteros Facility:[facility] Start: 07-02-2022 End: 07-02-2022 Admission to same day surgery center MD Francesco Quinteros Work Phone: [facility] [place] Start: 07-02-2022 End: 07-03-2022 ambulatory MD Francesco Quinteros Work Phone: [facility] Work Phone: Start: 07-02-2022 End: 07-02-2022 Off-Site Yaakov GREENWOOD [facility] [place] Start: 06-19-2022 End: 06-19-2022 ambulatory Yaakov Greenwood Facility:[facility] Start: 06-19-2022 End: 06-19-2022 ambulatory MD Francesco Quinteros Work Phone: [facility] Work Phone: Start: 06-19-2022 End: 06-19-2022 Patient encounter procedure MD Francesco Quinteros Work Phone: [facility] Work Phone: Start: 06-11-2022 End: 06-12-2022 ambulatory Yaakov GREENWOOD Facility:[facility] [place] Start: 06-11-2022 End: 06-11-2022 Patient encounter procedure Yaakov GREENWOOD [facility] Start: 05-31-2022 ambulatory Yaakov GREENWOOD Facility :[facility] Start: 05-30-2022 End: 05-31-2022 ambulatory MD Remi Quintero [place] [place] Start: 05-30-2022 End: 05-30-2022 Pain Management Remi Quintero [facility] Start: 05-28-2022 End: 05-28-2022 ambulatory LILIA NIELSEN Facility: Start: 04-30-2022 End: 2022 ambulatory Yaakov GREENWOOD Facility:[facility] Start: 04-30-2022 End: 04-30-2022 Patient encounter procedure Yaakov GREENWOOD [facility] [place] Start: 04-06-2022 End: 04-07-2022 ambulatory Axel Meredith Facility:[facility] [place] Start: 04-06-2022 End: 04-06-2022 Patient encounter procedure Axel Meredith [facility] Start: 03-30-2022 End: 03-30-2022 ambulatory YUDI Amaya Facility: Start: 03-29-2022 ambulatory MARILIA Aguero ty:[facility] Start: 03-28-2022 End: 03-28-2022 ambulatory FRANCESCO QUINTEROS Facility:[facility] Start: 03-28-2022 End: 03-28-2022 Patient encounter procedure Marilia Siu PA-C Work Phone: [facility] Comment on above: Spastic hemiparesis affecting dominant side (HCC) (Primary Dx) Start: 02-28-2022 End: 03-01-2022 ambulatory Axel Meredith Facility:[facility] Start: 02-28-2022 End: 02-28-2022 Patient encounter procedure Axel Meredith [facility] Start: 02-26-2022 ambulatory Remi Quintero [place] [place] Start: 02-07-2022 End: 02-07-2022 ambulatory FRANCESCO QUINTEROS Facility:[facility] Start: 02-07-2022 End: 02-07-2022 Patient encounter procedure Jose Hassan MD Work Phone: [facility] Comment on above: Acute transverse mye litis (HCC) (Primary Dx) Start: 01-31-2022 End: 01-31-2022 Patient encounter procedure Axel Meredith [facility] Start: 01-24-2022 End: 01-24-2022 Patient encounter procedure Remi Quintero [facility] Start: 01-24-2022 End: 01-24-2022 Pain Management Remi Quintero [facility] Start: 01-18-2022 End: 01-18-2022 Patient encounter procedure Landry MEADE [facility] [place] Start: 01-05-2022 End: 01-05-2022 Patient encounter procedure Axel Meredith [facility] [place] Start: 01-04-2022 End: 01-05-[address] FRANCESCO QUINTEROS . Facility: Start: 12-27-2021 Telephone encounter Ana Iv ec PT, DPT Work Phone: [facility] Comment on above: Physical Therapy Start: 12-25-2021 Chart abstracting Desiree Enriquez APRN.OWNER Work Phone: [facility] Comment on above: Orders (Faxed orders ) Start: 12-19-2021 End: 12-19-2021 ambulatory Ana Ivec PT, DPT Work Phone: [facility] Comment on above: Impaired mobility an d ADLs (Primary Dx); Spastic hemiparesis affecting dominant side (HCC); Abnormality of gait Start: 12-12-2021 End: 12-12-2021 Patient encounter procedure MARILIA CR [facility] Start: 12-11-2021 Telephone encounter Ana Iv ec PT, DPT Work Phone: [facility] Comment on above: Physical Therapy Start: 12-08-2021 Telephone encounter Ana Iv ec PT, DPT Work Phone: [facility] Comment on above: Physical Therapy Start: 12-06-2021 Telephone encounter Ana Iv ec PT, DPT Work Phone: [facility] Comment on above: Physical Therapy Start: 12-06-2021 End: 12-06-2021 ambulatory Ana Ryan PT, DPT Work Phone: [facility] Comment on above: Spastic hemiparesis affecting dominant side (HCC); Impaired mobility and ADLs; Abnormality of gait Start: 12-06-2021 End: 12-06-2021 Patient encounter procedure Prieto Elizondo MD Work Phone: Ophthalmology Comment on above: Vision loss, bilater al (Primary Dx); Transverse myelitis (HCC); Uveitis; Optic neuropathy Start: 11-28-2021 End: 11-28-2021 ambulatory Pulm Stro Work Phone: Pulmonary Lab Comment on above: Spirometry Start: 11-28-2021 End: 11-28-2021 Patient encounter procedure Pulm Lab [facility] Work Phone: [facility] Start: 11-16-2021 Telephone encounter Desiree Enriquez APRN.OWNER Work Phone: [facility] Comment on above: Appointment (Left Pt a VM asking they return our call to schedule PT/OT/Speech Therapy Consults, preferably on the same day as their BOTOX appointment on 02/20/22) Start: 11-14-2021 End: 11-14-2021 Patient encounter procedure Desiree Enriquez APRN.OWNER Work Phone: [facility] Comment on above: Spastic hemiparesis affecting dominant side (HCC) (Primary Dx); Impaired mobility and ADLs; Abnormality of gait; Dysphagia, unspecified type Start: 11-02-2021 End: 11-02-2021 Patient encounter procedure MARILIA CR [facility] Start: 10-27-2021 End: 10-27-2021 Subsequent hospital visit by physician Mri 3 Radio Main Q (I-Stat/1.5t/3t) Work Phone: MRI [facility] Comment on above: Transverse myelitis (HCC) [G37.3] Start: 10-26-2021 End: 10-26-2021 Patient encounter procedure MARILIA CR [facility] Start: 10-20-2021 End: 10-20-2021 Patient encounter procedure Urszula Sood MD Work Phone: Rheumatology Comment on above: Spastic hemiplegia o f right dominant side due to noncerebrovascular etiology (HCC) (Primary Dx); ILD (interstitial lung disease) (HCC); Uveitis; Recurrent mouth ulceration Hypoglycemic reactio n (Primary Dx) Start: 10-18-2021 ambulatory Justina Fuentes MD Work Phone: Neurology Comment on above: ANKLE BRACE Start: 10-12-2021 Telephone encounter Justina hall MD Work Phone: Neurology Comment on above: [facility] Start: 10-06-2021 End: 10-06-2021 Subsequent hospital visit by physician Ct Main F30 (I-Stat) Work Phone: Radiology Comment on above: Localized enlarged l ymph nodes [R59.0] Start: 09-22-2021 End: 09-22-2021 Patient encounter procedure Neur [place] Access Work Phone: [facility] Comment on above: Transverse myelitis (HCC) (Primary Dx); Localized enlarged lymph nodes; Vision loss of right eye Start: 09-21-2021 End: 09-21-2021 Patient encounter procedure Justina Fuentes MD Work Phone: Neurology Comment on above: Transverse myelitis (HCC) (Primary Dx) Start: 09-05-2021 End: 09-05-2021 Patient encounter procedure Yaakov GREENWOOD [facility] Start: 08-30-2021 End: 08-30-2021 Patient encounter procedure Kentrell Guardado PA-C Work Phone: [facility] [place] Comment on above: Hemiparesis of right dominant side, unspecified hemiparesis etiology (HCC) (Primary Dx) Start: 08-07-2021 End: 08-07-2021 Patient encounter procedure Candido PRINCE [facility] Start: 06-27-2021 End: 06-27-2021 Patient encounter procedure Yaakov GREENWOOD [facility] Ricky Start: 06-01-2021 End: 06-01-2021 Pain Management Remi Quintero [facility] Start: 05-16-2021 Telephone encounter Neurology Provid er Neurology Comment on above: Received Outside [facility] Records ([facility] referral) Start: 01-11-2021 Chart abstracting Unknown Neuro logy Start: 03-28-2018 End: 03-28-2018 Emergency department patient visit [facility] Procedures Date Procedure Procedure Detail Performing Clinician Start: 07-02-2022 OR Cysto Suprapubic Tube Placement (Not Applicable) MD Francesco Quinteros Work Phone: Start: 06-19-2022 Plain chest X-ray MD Francesco Quinteros Work Phone: Start: 12-06-2021 End: 12-06-2021 Fundus photography w/interpretation & report Prieto Elizondo MD Work Phone: Start: 11-28-2021 Co diffusing capacity Gerson Saenz RN Start: 10-27-2021 Mri brain brain stem w/o contrast material Agustina De Jesus MD Work Phone: Start: 10-20-2021 Fundus photography w/interpretation & report Frank Dillon MD Work Phone: Start: 10-19-2021 Adult depression screening assessment Justina Fuentes MD Work Phone: Start: 10-06-2021 Ct thorax w/o contrast material Agustina goodman MD Work Phone: Start: 02-26-2020 Arthroscopy of knee Remi Quintero Start: 03-31-2018 Cystourethroscopy with dilation of urethral stricture Remi Quintero Start: 03-31-2018 Urodynamic studies Remi Quintero Start: 02-12-2018 Spinal cord stimulator implant Remi barrow Start: 10-16-2017 left lumbar sympathetic plexus block 1 Remi Quintero Comment on above: 25% relief x 10 days then pain returned same as before Start: 07-24-2017 Left sympathetic plexus block 2 Remi Quintero Comment on above: swelling has gone down-50% relief Start: 12-20-2015 Adult depression screening assessment Neurology Provider Start: 02-18-2011 Hysterectomy Remi Quintero Arthroscopy of knee Remi Quintero Comment on above: W/ ACL REPAIR Colonoscopy Landry MEADE Esophagogastroduodenoscopy M emmydaniela LÓPEZEstephanie L salpingooopherectomy Pearl Quintero Right Eye Tubal Shunt Lonny Quintero spinal cord stimulator trial 4 Remi Quintero Comment on above: 60% relief Vaginal hysterectomy Landry LÓPEZEstephanie Plan of Treatment Date Care Activity Detail Author Start: 10-20-2024 DIABETES SCREEN DIABETES SCREEN [facility] Start: 10-20-2024 Diabetes Screening Diabetes Screenin g [facility] Start: 02-13-2023 ambulatory Ambulatory Facility:[facility] Start: 10-19-2022 Adult depression screening assessment DEPRESSION SCREENING [facility] Start: 10-19-2022 Covid-19 Vaccine ( season) Covid-19 Vaccine ( season) [facility] Start: 10-19-2022 Influenza vaccination [facility] Start: 07-02-2022 End: 07-02-2022 [facility] Start: 02-18-2022 DEPRESSION ASSESSMENT DEPRESSION ASS ESSMENT [facility] Start: 10-20-2021 End: 12-20-2021 ANTI NEUTRO CYTO AB [facility] Work Phone: Comment on above: Expected: 10/20/2021 , Expires: 12/20/2021 Start: 10-19-2021 Influenza vaccination [facility] Start: 09-22-2021 End: 11-22-2021 AUTOIMMUNE ENCEPHALOPATHY EVALUATION, SERUM [facility] Work Phone: Comment on above: Expected: 09/22/2021 , Expires: 11/22/2021 Start: 09-22-2021 End: 11-22-2021 Extractable nuclear Ab panel - Serum [facility] Work Phone: Comment on above: Expected: 09/22/2021 , Expires: 11/22/2021 Start: 09-22-2021 End: 11-22-2021 INTERLEUKIN 2 RECEPTOR, SOLUBLE, SERUM [facility] Work Phone: Comment on above: Expected: 09/22/2021 , Expires: 11/22/2021 Start: 09-22-2021 End: 03-16-2023 OCT NEURO INST OCT NEURO INST OPHT Imaging Routine Transverse myelitis (HCC) Expected: 09/22/2021, Expires: 03/16/2023 [facility] Work Phone: Comment on above: Expected: 09/22/2021 , Expires: 03/16/2023 Start: 09-21-2021 End: 11-21-2021 VINNIE BY IFA WITH REFLEX [facility] Work Phone: Comment on above: Expected: 09/21/2021 , Expires: 11/21/2021 Start: 09-21-2021 End: 11-21-2021 AQUAPORIN 4 RECEPTOR AB, IGG BY IFA [facility] Work Phone: Comment on above: Expected: 09/21/2021 , Expires: 11/21/2021 Start: 09-21-2021 End: 11-21-2021 CARDIOLIPIN IGM ABS [facility] Work Phone: Comment on above: Expected: 09/21/2021 , Expires: 11/21/2021 Start: 09-21-2021 End: 11-21-2021 RADIO INSTALLER AUTOMOBILE DEMYELINATING DISEASE EVALUATION, SERUM [facility] Work Phone: Comment on above: Expected: 09/21/2021 , Expires: 11/21/2021 Start: 09-21-2021 End: 11-21-2021 COPPER BLOOD [facility] Work Phone: Comment on above: Expected: 09/21/2021 , Expires: 11/21/2021 Start: 09-21-2021 End: 11-21-2021 SYPHILIS TOTAL W/REFLEX [facility] Work Phone: Comment on above: Expected: 09/21/2021 , Expires: 11/21/2021 Start: 04-04-2021 COVID-19 VACCINE (4 - Booster for Pfizer series) COVID-19 VACCINE (4 - Booster for Pfizer series) [facility] Start: 03-28-2021 DIABETES SCREEN DIABETES SCREEN [facility] Start: 02-18-2021 DEPRESSION ASSESSMENT DEPRESSION ASS ESSMENT [facility] Start: 10-19-2020 Influenza vaccination INFLUENZA (#1) [facility] Start: 2018 COLOGUARD (FIT-DNA) COLOGUARD (FIT-D NA) [facility] Start: 2018 Colonoscopy COLONOSCOPY [facility] Start: 2018 COLORECTAL CANCER SCREENING COLORECTAL CANCER SCREENING [facility] Start: [address] COLONOGRAPHY [facility] Start: 2018 FECAL OCCULT BLOOD FECAL OCCULT BLOO D [facility] Start: 2018 Lipid panel Lipid Screening [facility] Start: 2018 LIPID SCREEN LIPID SCREEN [facility] Start: 2018 Screening for malign ant neoplasm of colon [facility] Start: 2018 SIGMOIDOSCOPY SIGMOIDOSCOPY [facility] Start: 12-19-2016 Adult depression screening assessment DEPRESSION SCREENING [facility] Start: 2013 Mammography MAMMOGRAM [facility] Start: 2013 Screening for malign ant neoplasm of breast Mammogram Screening [facility] Start: 05-02-2003 HPV TESTING HPV TESTING [facility] Start: 05-02-2003 Screening for malign ant neoplasm of cervix HPV Testing [facility] Start: 1994 PAP TESTING PAP TESTING [facility] Start: 1994 Screening for malign ant neoplasm of cervix Pap Testing [facility] Start: 1992 Urine microalbumin profile [facility] Start: 05-02-1991 HEPATITIS C SCREENING HEPATITIS C [facility] Start: 05-02-1991 Hepatitis C screening Hepatitis C [facility] Start: 05-02-1991 HIV SCREENING HIV SCREENING [facility] Start: 05-02-1991 HIV screening HIV Screening [facility] Start: 1978 COVID-19 VACCINE (#1) COVID-19 VACCI NE (#1) [facility] Start: 1978 COVID-19 VACCINE (1) COVID-19 VACCIN E (1) [facility] Start: 1973 HEPATITIS B (1 of 3 - 3-dose series) HEPATITIS B (1 of 3 - 3-dose series) [facility] Start: 1973 Hepatitis B Vaccine (1 of 3 - 3-dose series) Hepatitis B Vaccine (1 of 3 - 3-dose series) [facility] End: 10-22-2022 Ct thorax w/o contrast material CT CHEST WO IVCON Radiology Routine Localized enlarged lymph nodes 1 Occurrences starting 09/22/2021 until 10/22/2022 [facility] Work Phone: Comment on above: 1 Occurrences starti ng 09/22/2021 until 10/22/2022 LUNG DIFFUSION CAPAC ITY (DLCO) LUNG DIFFUSION CAPACITY (DLCO) PFT Routine Sarcoidosis SOB (shortness of breath) 11/28/2021 1:49 PM EDT [facility] Work Phone: End: 10-22-2022 Mri brain brain stem w/o contrast material MRI BRAIN WO IVCON Radiology Routine Transverse myelitis (HCC) 1 Occurrences starting 09/22/2021 until 10/22/2022 [facility] Work Phone: Comment on above: 1 Occurrences starti ng 09/22/2021 until 10/22/2022 End: 10-22-2022 Mri spinal canal cervical w/o contrast matrl MRI CERVICAL SPINE WO IVCON Radiology Routine Transverse myelitis (HCC) 1 Occurrences starting 09/22/2021 until 10/22/2022 [facility] Work Phone: Comment on above: 1 Occurrences starti ng 09/22/2021 until 10/22/2022 End: 10-22-2022 Mri spinal canal thoracic w/o contrast matrl MRI THORACIC SPINE WO IVCON Radiology Routine Transverse myelitis (HCC) 1 Occurrences starting 09/22/2021 until 10/22/2022 [facility] Work Phone: Comment on above: 1 Occurrences starti ng 09/22/2021 until 10/22/2022 Patient Education How to Care fo r Your Suprapubic Urinary Catheter [facility] Work Phone: Patient referral [facility] Work Phone: PT PLAN OF CARE CERTIFICATION PT PLAN OF CARE CERTIFICATION Procedures Routine Spastic hemiparesis affecting dominant side (HCC) Impaired mobility and ADLs Abnormality of gait Ordered: 12/06/2021 [facility] Work Phone: Comment on above: Ordered: 12/06/2021 SPIROMETRY WITH DILA TOR IF OBSTRUCTED SPIROMETRY WITH DILATOR IF OBSTRUCTED PFT Routine Sarcoidosis SOB (shortness of breath) 11/28/2021 1:49 PM EDT [facility] Work Phone: End: 09-02-2023 XR SHOULDER [id number] AP/TRUE AP RIGHT XR SHOULDER [id number] AP/TRUE AP RIGHT Radiology Routine Chronic right shoulder pain 1 Occurrences starting 08/03/2022 until 09/02/2023 [facility] Work Phone: Comment on above: 1 Occurrences starti ng 08/03/2022 until 09/02/2023 [facility] c [facility] c [facility] Immunizations Immunization Date Immunization Notes Care Provider Fa cility 02-07-2021 SARS-CoV-2 (COVID-19 ) mRNA BNT-162b2 vax Landry NILL [facility] [place] 06-15-2020 SARS-CoV-2 (COVID-19 ) mRNA BNT-162b2 vax Landry NILL [facility] 05-25-2020 SARS-CoV-2 (COVID-19 ) mRNA BNT-162b2 vax Landry NILL [facility] 12-04-2016 influenza virus vaccine, unspecified formulation Yaakov CHERELLE [facility] 12-04-2016 influenza, injectabl e, quadrivalent, preservative free Urszula Sood MD Work Phone: [facility] NEGATED: Highlighted row has not occurred!01-18-2022 influenza virus vaccine, unspecified formulation Landry HALINA [facility] Payers Date Payer Category Payer Self-pay [id number] 2020 Medicare MEDICARE MEDICAR E A AND B [id number] 2020-Present [phone] [place] [address] Medicare [id number] 2020 Medicare MEDICARE MEDICAR E A AND B [id number] 2020-Present [phone] [address] [address] [place] [address] Medicare [id number] 2020 Private Health Insurance [employer] [place] ETNA CHOICE POS II [id number] 2020-Present [phone] [address] [place] [address] POS [id number] [id number] 2020 Private Health Insurance [id number] [id number] 1973 Unknown [id number] 2.16.840.1.546626.3.579. 2.593 1973 Unknown [id number] 2.16.840.1.137254.3.579. 2.593 1973 Unknown [id number] 2.16.840.1.212250.3.579. 2.593 1973 Unknown [id number] 2.16.840.1.930581.3.579. 2.593 1973 Unknown [id number] 2.16.840.1.549472.3.579. 2.727 1973 Unknown [id number] 2.16.840.1.177959.3.579. 2.727 1973 Unknown [id number] 2.16.840.1.881483.3.579. 2.727 1973 Unknown [id number] 2.16.840.1.932346.3.579. 2.727 1973 Unknown [id number] 2.16.840.1.570883.3.579. 2.727 1973 Unknown [id number] 2.16.840.1.286612.3.579. 2 1973 Unknown [id number] 2.16.840.1.756166.3.579. 2 1973 Unknown [id number] 2.16.840.1.840151.3.579. 2 1973 Unknown [id number] 2.16.840.1.566078.3.579. 2 1973 Unknown [id number] 2.16.840.1.606369.3.579. 2 1973 Unknown [id number] 2.16.840.1.699243.3.579. 2 1973 Unknown [id number] 2.16.840.1.257422.3.579. 1973 Unknown [id number] 2.16.840.1.668387.3.579. 2 1973 Unknown [id number] 2.16.840.1.620474.3.579. 1973 Unknown [id number] 2.16.840.1.102310.3.579. 2 1973 Unknown [id number] 2.16.840.1.111564.3.579. 2 1973 Unknown [id number] 2.16.840.1.576181.3.579. 2 1973 Unknown [id number] 2.16.840.1.290159.3.579. 2 1973 Unknown [id number] 2.16.840.1.866879.3.579. 2 1973 Unknown [id number] 2.16.840.1.807099.3.579. 2 1973 Unknown [id number] 2.16.840.1.019238.3.579. 2 1973 Unknown [id number] 2.16.840.1.505524.3.579. 2.727 1973 Unknown [id number] 2.16.840.1.447371.3.579. 2.727 1973 Unknown [id number] 2.16.840.1.881574.3.579. 2.727 1973 Unknown [id number] 2.16.840.1.366512.3.579. 2.727 1959 Medicare [id number] 1959 Private Health Insurance [facility] [id number] Unknown [facility] [id number] Unknown [id number] 2.16.840.1.486372.3.579. 2.531 Unknown [id number] 2.16.840.1.249419.3.579. 2.531 Worker's Compensation [employer] Misc [id number] Social History Date Type Detail Facility Start: 12-20-2015 End: 09-18-2022 Tobacco smoking status NHIS Never smoked tobacco [facility] Start: 12-20-2015 End: 10-20-2021 Tobacco use and exposure Smokeless tobacco non-user [facility] Start: 07-08-2018 End: 01-31-2023 Alcohol intake Current non-drinker of alcohol (finding) [facility] Start: 1975 Sex Assigned At Not on file [facility] Tobacco [facility] Comment on above: denies. Start: 07-09-2022 End: 01-30-2023 Sex Assigned At Female [facility] Start: 08-20-2021 End: 12-19-2021 Exposure to SARS-CoV-2 (event) Not sure [facility] Start: 10-07-2021 End: 11-20-2021 Exposure to SARS-CoV-2 (event) Unable to assess [facility] Tobacco smoking status No Smokin g Status Entered [facility] Mini Tobacco smoking status Never Evie [facility] [place] Start: 1975 Sex Assigned At Female F [facility] Start: 07-09-2022 End: 01-30-2023 History of Social function [facility] Medical Equipment Procedure Code Equipment Code Equipment Origin al Text Equipment Identifier Dates Drain Ahmed Flexible Plate .635mm .305mm Thk.9mm Blunt Taper Silicone 16x13 - [id number] Start: 04-10-2017 Graft Tutoplast Pericardium 1.5x1.5cm Soft Tissue Allograft Processed - [id number] Start: 04-10-2017 FDA Start: 08-24-2019 FDA Start: 08-24-2019 FDA Start: 08-24-2019 FDA Start: 08-24-2019 FDA Start: 08-24-2019 FDA Start: 08-24-2019 FDA Start: 08-24-2019 FDA Start: 04-10-2017 FDA Start: 02-12-2018 FDA Start: 08-24-2019 FDA Start: 08-24-2019 FDA Start: 08-24-2019 FDA Start: 08-24-2019 FDA Start: 08-24-2019 FDA Start: 08-24-2019 FDA Start: 08-24-2019 FDA Start: 04-10-2017 FDA Start: 02-12-2018 KNEE ARTHROSCOPY W/ ACL REPAIR Pierre LLOYD Jose A 08/24/19 Unknown Knee R FDA Start: 08-24-2019 KNEE ARTHROSCOPY W/ ACL REPAIR Brown DO, Jose A 08/24/19 Unknown Knee R FDA Start: 08-24-2019 KNEE ARTHROSCOPY W/ ACL REPAIR Brown DO, Jose A 08/24/19 Unknown Knee R FDA Start: 08-24-2019 KNEE ARTHROSCOPY W/ ACL REPAIR Brown DO Jose A 08/24/19 Unknown Knee R FDA Start: 08-24-2019 KNEE ARTHROSCOPY W/ ACL REPAIR Brown DO, Jose A 08/24/19 Unknown Knee R FDA Start: 08-24-2019 KNEE ARTHROSCOPY W/ ACL REPAIR Brown DO Jose A 08/24/19 Unknown Knee R FDA Start: 08-24-2019 KNEE ARTHROSCOPY W/ ACL REPAIR Jose Mendoza DO A 08/24/19 Unknown Knee R FDA Start: 08-24-2019 Unknown Unknown 04/10/17 Non Biological Eye FDA Start: 04-10-2017 Comment on above: Right eye Ahmed glau coma valve 04-10-17 Unknown Unknown 02/12/18 Non Biological Flank R FDA Start: 02-12-2018 Comment on above: [employer] Sp inal Cord Stimulator SC-1200Linear Leads SC-2218-50very restrictive heating conditions. B1+juan luis less than or equal to 2.0 UT or JAKE Less than or equal to 0.2 W/kgcannot scan in Normal Operating ModeMust use specific Low JAKE protocol for brain and knee KNEE ARTHROSCOPY W/ ACL REPAIR Angelo Mendoza DOson A 08/24/19 Unknown Knee R FDA Start: 08-24-2019 KNEE ARTHROSCOPY W/ ACL REPAIR Angelo Mendoza DOson A 08/24/19 Unknown Knee R FDA Start: 08-24-2019 KNEE ARTHROSCOPY W/ ACL REPAIR Pierre LLOYD Jose A 08/24/19 Unknown Knee R FDA Start: 08-24-2019 KNEE ARTHROSCOPY W/ ACL REPAIR Pierre LLOYD, Jose A 08/24/19 Unknown Knee R FDA Start: 08-24-2019 KNEE ARTHROSCOPY W/ ACL REPAIR Pierre LLOYD, Jose A 08/24/19 Unknown Knee R FDA Start: 08-24-2019 KNEE ARTHROSCOPY W/ ACL REPAIR Pierre LLOYD, Joes A 08/24/19 Unknown Knee R FDA Start: 08-24-2019 KNEE ARTHROSCOPY W/ ACL REPAIR Pierre LLOYD Jose A 08/24/19 Unknown Knee R FDA Start: 08-24-2019 Unknown Unknown 04/10/17 Non Biological Eye FDA Start: 04-10-2017 Comment on above: Right eye Ahmed glau coma valve 04-10-17 Unknown Unknown 02/12/18 Non Biological Flank R FDA Start: 02-12-2018 Comment on above: [employer] Sp inal Cord Stimulator SC-1200Linear Leads SC-2218-50very restrictive heating conditions. B1+juan luis less than or equal to 2.0 UT or JAKE Less than or equal to 0.2 W/kgcannot scan in Normal Operating ModeMust use specific Low JAKE protocol for brain and knee KNEE ARTHROSCOPY W/ ACL REPAIR Pierre DOAngeloJose A 08/24/19 Unknown Knee R FDA Start: 08-24-2019 KNEE ARTHROSCOPY W/ ACL REPAIR Pierre DO, Jose A 08/24/19 Unknown Knee R FDA Start: 08-24-2019 KNEE ARTHROSCOPY W/ ACL REPAIR Brown DO, Jose A 08/24/19 Unknown Knee R FDA Start: 08-24-2019 KNEE ARTHROSCOPY W/ ACL REPAIR Brown DO, Jose A 08/24/19 Unknown Knee R FDA Start: 08-24-2019 KNEE ARTHROSCOPY W/ ACL REPAIR Pierre LLOYD Jose A 08/24/19 Unknown Knee R FDA Start: 08-24-2019 KNEE ARTHROSCOPY W/ ACL REPAIR Angelo Mendoza DOson A 08/24/19 Unknown Knee R FDA Start: 08-24-2019 KNEE ARTHROSCOPY W/ ACL REPAIR Angelo Mendoza DOson A 08/24/19 Unknown Knee R FDA Start: 08-24-2019 Unknown Unknown 04/10/17 Non Biological Eye FDA Start: 04-10-2017 Comment on above: Right eye Ahmed glau coma valve 04-10-17 Unknown Unknown 02/12/18 Non Biological Flank R FDA Start: 02-12-2018 Comment on above: [email or web address] Scientific Sp inal Cord Stimulator SC-1200Linear Leads SC-2218-50very restrictive heating conditions. B1+juan luis less than or equal to 2.0 UT or JAKE Less than or equal to 0.2 W/kgcannot scan in Normal Operating ModeMust use specific Low JAKE protocol for brain and knee KNEE ARTHROSCOPY W/ ACL REPAIR Jose Mendoza DO A 08/24/19 Unknown Knee R FDA Start: 08-24-2019 KNEE ARTHROSCOPY W/ ACL REPAIR Pierre LLOYD Jose A 08/24/19 Unknown Knee R FDA Start: 08-24-2019 KNEE ARTHROSCOPY W/ ACL REPAIR Pierre LLOYD Jose A 08/24/19 Unknown Knee R FDA Start: 08-24-2019 KNEE ARTHROSCOPY W/ ACL REPAIR Pierre DO, Jose A 08/24/19 Unknown Knee R FDA Start: 08-24-2019 KNEE ARTHROSCOPY W/ ACL REPAIR Pierre DO, Jose A 08/24/19 Unknown Knee R FDA Start: 08-24-2019 KNEE ARTHROSCOPY W/ ACL REPAIR Brown DO, Jose A 08/24/19 Unknown Knee R FDA Start: 08-24-2019 KNEE ARTHROSCOPY W/ ACL REPAIR Jose Mendoza DO A 08/24/19 Unknown Knee R FDA Start: 08-24-2019 Unknown Unknown 04/10/17 Non Biological Eye FDA Start: 04-10-2017 Comment on above: Right eye Ahmed glau coma valve 04-10-17 Unknown Unknown 02/12/18 Non Biological Flank R FDA Start: 02-12-2018 Comment on above: [employer] Sp inal Cord Stimulator SC-1200Linear Leads SC-2218-50very restrictive heating conditions. B1+juan luis less than or equal to 2.0 UT or JAKE Less than or equal to 0.2 W/kgcannot scan in Normal Operating ModeMust use specific Low JAKE protocol for brain and knee KNEE ARTHROSCOPY W/ ACL REPAIR Jose Mendoza DO A 08/24/19 Unknown Knee R FDA Start: 08-24-2019 KNEE ARTHROSCOPY W/ ACL REPAIR Jose Mendoza DO A 08/24/19 Unknown Knee R FDA Start: 08-24-2019 KNEE ARTHROSCOPY W/ ACL REPAIR Jose Mendoza DO A 08/24/19 Unknown Knee R FDA Start: 08-24-2019 KNEE ARTHROSCOPY W/ ACL REPAIR Jose Mendoza DO A 08/24/19 Unknown Knee R FDA Start: 08-24-2019 KNEE ARTHROSCOPY W/ ACL REPAIR Jose Mendoza DO A 08/24/19 Unknown Knee R FDA Start: 08-24-2019 KNEE ARTHROSCOPY W/ ACL REPAIR Jose Mendoza DO A 08/24/19 Unknown Knee R FDA Start: 08-24-2019 KNEE ARTHROSCOPY W/ ACL REPAIR Angelo Mendoza DOson A 08/24/19 Unknown Knee R FDA Start: 08-24-2019 Unknown Unknown 04/10/17 Non Biological Eye FDA Start: 04-10-2017 Comment on above: Right eye Ahmed glau coma valve 04-10-17 Unknown Unknown 02/12/18 Non Biological Flank R FDA Start: 02-12-2018 Comment on above: [place] [employer] Sp inal Cord Stimulator SC-1200Linear Leads SC-2218-50very restrictive heating conditions. B1+juan luis less than or equal to 2.0 UT or JAKE Less than or equal to 0.2 W/kgcannot scan in Normal Operating ModeMust use specific Low JAKE protocol for brain and knee KNEE ARTHROSCOPY W/ ACL REPAIR Jose Mendoza DO A 08/24/19 Unknown Knee R FDA Start: 08-24-2019 KNEE ARTHROSCOPY W/ ACL REPAIR Jose Mendoza DO A 08/24/19 Unknown Knee R FDA Start: 08-24-2019 KNEE ARTHROSCOPY W/ ACL REPAIR Jose Mendoza DO A 08/24/19 Unknown Knee R FDA Start: 08-24-2019 KNEE ARTHROSCOPY W/ ACL REPAIR Jose Mendoza DO A 08/24/19 Unknown Knee R FDA Start: 08-24-2019 KNEE ARTHROSCOPY W/ ACL REPAIR Jose Mendoza DO A 08/24/19 Unknown Knee R FDA Start: 08-24-2019 KNEE ARTHROSCOPY W/ ACL REPAIR Jose Mendoza DO A 08/24/19 Unknown Knee R FDA Start: 08-24-2019 KNEE ARTHROSCOPY W/ ACL REPAIR Jose Mendoza DO A 08/24/19 Unknown Knee R FDA Start: 08-24-2019 Unknown Unknown 04/10/17 Non Biological Eye FDA Start: 04-10-2017 Comment on above: Right eye Ahmed glau coma valve 04-10-17 Unknown Unknown 02/12/18 Non Biological Flank R FDA Start: 02-12-2018 Comment on above: [email or web address] Scientific Sp inal Cord Stimulator SC-1200Linear Leads SC-2218-50very restrictive heating conditions. B1+juan luis less than or equal to 2.0 UT or JAKE Less than or equal to 0.2 W/kgcannot scan in Normal Operating ModeMust use specific Low JAKE protocol for brain and knee KNEE ARTHROSCOPY W/ ACL REPAIR Jose Mendoza DO A 08/24/19 Unknown Knee R FDA Start: 08-24-2019 KNEE ARTHROSCOPY W/ ACL REPAIR Jose Mendoza DO A 08/24/19 Unknown Knee R FDA Start: 08-24-2019 KNEE ARTHROSCOPY W/ ACL REPAIR Angelo Mendoza DOson A 08/24/19 Unknown Knee R FDA Start: 08-24-2019 KNEE ARTHROSCOPY W/ ACL REPAIR Angelo Mendoza DOson A 08/24/19 Unknown Knee R FDA Start: 08-24-2019 KNEE ARTHROSCOPY W/ ACL REPAIR Jose Mendoza DO A 08/24/19 Unknown Knee R FDA Start: 08-24-2019 KNEE ARTHROSCOPY W/ ACL REPAIR Jose Mendoza DO A 08/24/19 Unknown Knee R FDA Start: 08-24-2019 KNEE ARTHROSCOPY W/ ACL REPAIR Jose Mendoza DO A 08/24/19 Unknown Knee R FDA Start: 08-24-2019 Unknown Unknown 04/10/17 Non Biological Eye FDA Start: 04-10-2017 Comment on above: Right eye Ahmed glau coma valve 04-10-17 Unknown Unknown 02/12/18 Non Biological Flank R FDA Start: 02-12-2018 Comment on above: [employer] Sp inal Cord Stimulator SC-1200Linear Leads SC-2218-50very restrictive heating conditions. B1+juan luis less than or equal to 2.0 UT or JAKE Less than or equal to 0.2 W/kgcannot scan in Normal Operating ModeMust use specific Low AJKE protocol for brain and knee KNEE ARTHROSCOPY W/ ACL REPAIR Jose Mendoza DO 08/24/19 Unknown Knee R FDA Start: 08-24-2019 KNEE ARTHROSCOPY W/ ACL REPAIR Jose Mendoza DO A 08/24/19 Unknown Knee R FDA Start: 08-24-2019 KNEE ARTHROSCOPY W/ ACL REPAIR Jose Mendoza DO A 08/24/19 Unknown Knee R FDA Start: 08-24-2019 KNEE ARTHROSCOPY W/ ACL REPAIR Jose Mendoza DO A 08/24/19 Unknown Knee R FDA Start: 08-24-2019 KNEE ARTHROSCOPY W/ ACL REPAIR Jose Mendoza DO A 08/24/19 Unknown Knee R FDA Start: 08-24-2019 KNEE ARTHROSCOPY W/ ACL REPAIR Jose Mendoza DO A 08/24/19 Unknown Knee R FDA Start: 08-24-2019 KNEE ARTHROSCOPY W/ ACL REPAIR Jose Mendoza DO A 08/24/19 Unknown Knee R FDA Start: 08-24-2019 Unknown Unknown 04/10/17 Non Biological Eye FDA Start: 04-10-2017 Comment on above: Right eye Ahmed glau coma valve 04-10-17 Unknown Unknown 02/12/18 Non Biological Flank R FDA Start: 02-12-2018 Comment on above: [employer] Sp inal Cord Stimulator SC-1200Linear Leads SC-2218-50very restrictive heating conditions. B1+juan luis less than or equal to 2.0 UT or JAKE Less than or equal to 0.2 W/kgcannot scan in Normal Operating ModeMust use specific Low JAKE protocol for brain and knee KNEE ARTHROSCOPY W/ ACL REPAIR Jose Mendoza DO A 08/24/19 Unknown Knee R FDA Start: 08-24-2019 KNEE ARTHROSCOPY W/ ACL REPAIR Angelo Mendoza DOson A 08/24/19 Unknown Knee R FDA Start: 08-24-2019 KNEE ARTHROSCOPY W/ ACL REPAIR Brown DO, Jose A 08/24/19 Unknown Knee R FDA Start: 08-24-2019 KNEE ARTHROSCOPY W/ ACL REPAIR Pierre LLOYD, Jose A 08/24/19 Unknown Knee R FDA Start: 08-24-2019 KNEE ARTHROSCOPY W/ ACL REPAIR Pierre LLOYD, Jose A 08/24/19 Unknown Knee R FDA Start: 08-24-2019 KNEE ARTHROSCOPY W/ ACL REPAIR Pierre LLOYD, Jose A 08/24/19 Unknown Knee R FDA Start: 08-24-2019 KNEE ARTHROSCOPY W/ ACL REPAIR Pierre LLOYD, Jose A 08/24/19 Unknown Knee R FDA Start: 08-24-2019 Unknown Unknown 04/10/17 Non Biological Eye FDA Start: 04-10-2017 Comment on above: Right eye Ahmed glau coma valve 04-10-17 Unknown Unknown 02/12/18 Non Biological Flank R FDA Start: 02-12-2018 Comment on above: [email or web address] Scientific Sp inal Cord Stimulator SC-1200Linear Leads SC-2218-50very restrictive heating conditions. B1+juan luis less than or equal to 2.0 UT or JAKE Less than or equal to 0.2 W/kgcannot scan in Normal Operating ModeMust use specific Low JAKE protocol for brain and knee KNEE ARTHROSCOPY W/ ACL REPAIR Angelo Mendoza DOson A 08/24/19 Unknown Knee R FDA Start: 08-24-2019 KNEE ARTHROSCOPY W/ ACL REPAIR Brown DO, Jose A 08/24/19 Unknown Knee R FDA Start: 08-24-2019 KNEE ARTHROSCOPY W/ ACL REPAIR Pierre DO, Jose A 08/24/19 Unknown Knee R FDA Start: 08-24-2019 KNEE ARTHROSCOPY W/ ACL REPAIR Brown DO, Jose A 08/24/19 Unknown Knee R FDA Start: 08-24-2019 KNEE ARTHROSCOPY W/ ACL REPAIR Jose Mendoza DO 08/24/19 Unknown Knee R FDA Start: 08-24-2019 KNEE ARTHROSCOPY W/ ACL REPAIR Jose Mendoza DO 08/24/19 Unknown Knee R FDA Start: 08-24-2019 KNEE ARTHROSCOPY W/ ACL REPAIR Jose Mendoza DO 08/24/19 Unknown Knee R FDA Start: 08-24-2019 Unknown Unknown 04/10/17 Non Biological Eye FDA Start: 04-10-2017 Comment on above: Right eye Ahmed glau coma valve 04-10-17 Unknown Unknown 02/12/18 Non Biological Flank R FDA Start: 02-12-2018 Comment on above: [employer] Sp inal Cord Stimulator SC-1200Linear Leads SC-2218-50very restrictive heating conditions. B1+juan luis less than or equal to 2.0 UT or JAKE Less than or equal to 0.2 W/kgcannot scan in Normal Operating ModeMust use specific Low JAKE protocol for brain and knee KNEE ARTHROSCOPY W/ ACL REPAIR Jose Mendoza DO 08/24/19 Unknown Knee R FDA Start: 08-24-2019 KNEE ARTHROSCOPY W/ ACL REPAIR Jose Mendoza DO 08/24/19 Unknown Knee R FDA Start: 08-24-2019 KNEE ARTHROSCOPY W/ ACL REPAIR Jose Mendoza DO 08/24/19 Unknown Knee R FDA Start: 08-24-2019 KNEE ARTHROSCOPY W/ ACL REPAIR Jose Mendoza DO 08/24/19 Unknown Knee R FDA Start: 08-24-2019 KNEE ARTHROSCOPY W/ ACL REPAIR Jose Mendoza DO 08/24/19 Unknown Knee R FDA Start: 08-24-2019 KNEE ARTHROSCOPY W/ ACL REPAIR Jose Mendoza DO A 08/24/19 Unknown Knee R FDA Start: 08-24-2019 KNEE ARTHROSCOPY W/ ACL REPAIR Jose Mendoza DO A 08/24/19 Unknown Knee R FDA Start: 08-24-2019 Unknown Unknown 04/10/17 Non Biological Eye FDA Start: 04-10-2017 Comment on above: Right eye Ahmed glau coma valve 04-10-17 Unknown Unknown 02/12/18 Non Biological Flank R FDA Start: 02-12-2018 Comment on above: [employer] Sp inal Cord Stimulator SC-1200Linear Leads SC-2218-50very restrictive heating conditions. B1+juan luis less than or equal to 2.0 UT or JAKE Less than or equal to 0.2 W/kgcannot scan in Normal Operating ModeMust use specific Low JAKE protocol for brain and knee KNEE ARTHROSCOPY W/ ACL REPAIR Brown DOAngeloJose A 08/24/19 Unknown Knee R FDA Start: 08-24-2019 KNEE ARTHROSCOPY W/ ACL REPAIR Brown DO, Jose A 08/24/19 Unknown Knee R FDA Start: 08-24-2019 KNEE ARTHROSCOPY W/ ACL REPAIR Brown DO, Jose A 08/24/19 Unknown Knee R FDA Start: 08-24-2019 KNEE ARTHROSCOPY W/ ACL REPAIR Brown DO, Jose A 08/24/19 Unknown Knee R FDA Start: 08-24-2019 KNEE ARTHROSCOPY W/ ACL REPAIR Pierre LLOYD, Jose A 08/24/19 Unknown Knee R FDA Start: 08-24-2019 KNEE ARTHROSCOPY W/ ACL REPAIR Pierre LLOYD, Jose A 08/24/19 Unknown Knee R FDA Start: 08-24-2019 KNEE ARTHROSCOPY W/ ACL REPAIR Pierre LLOYD, Jose A 08/24/19 Unknown Knee R FDA Start: 08-24-2019 Unknown Unknown 04/10/17 Non Biological Eye FDA Start: 04-10-2017 Comment on above: Right eye Ahmed glau coma valve 04-10-17 Unknown Unknown 02/12/18 Non Biological Flank R FDA Start: 02-12-2018 Comment on above: [employer] Sp inal Cord Stimulator SC-1200Linear Leads SC-2218-50very restrictive heating conditions. B1+juan luis less than or equal to 2.0 UT or JAKE Less than or equal to 0.2 W/kgcannot scan in Normal Operating ModeMust use specific Low JAKE protocol for brain and knee KNEE ARTHROSCOPY W/ ACL REPAIR Brown DO, Jose A 08/24/19 Unknown Knee R FDA Start: 08-24-2019 KNEE ARTHROSCOPY W/ ACL REPAIR Brown DO, Jose A 08/24/19 Unknown Knee R FDA Start: 08-24-2019 KNEE ARTHROSCOPY W/ ACL REPAIR Brown DO, Jose A 08/24/19 Unknown Knee R FDA Start: 08-24-2019 KNEE ARTHROSCOPY W/ ACL REPAIR Jose Mendoza DO A 08/24/19 Unknown Knee R FDA Start: 08-24-2019 KNEE ARTHROSCOPY W/ ACL REPAIR Angelo Mendoza DOson A 08/24/19 Unknown Knee R FDA Start: 08-24-2019 KNEE ARTHROSCOPY W/ ACL REPAIR Jose Mendoza DO A 08/24/19 Unknown Knee R FDA Start: 08-24-2019 KNEE ARTHROSCOPY W/ ACL REPAIR Jose Mendoza DO A 08/24/19 Unknown Knee R FDA Start: 08-24-2019 Unknown Unknown 04/10/17 Non Biological Eye FDA Start: 04-10-2017 Comment on above: Right eye Ahmed glau coma valve 04-10-17 Unknown Unknown 02/12/18 Non Biological Flank R FDA Start: 02-12-2018 Comment on above: [employer] Sp inal Cord Stimulator SC-1200Linear Leads SC-2218-50very restrictive heating conditions. B1+juan luis less than or equal to 2.0 UT or JAKE Less than or equal to 0.2 W/kgcannot scan in Normal Operating ModeMust use specific Low JAKE protocol for brain and knee KNEE ARTHROSCOPY W/ ACL REPAIR Jose Mendoza DO A 08/24/19 Unknown Knee R FDA Start: 08-24-2019 KNEE ARTHROSCOPY W/ ACL REPAIR Jose Mendoza DO A 08/24/19 Unknown Knee R FDA Start: 08-24-2019 KNEE ARTHROSCOPY W/ ACL REPAIR Jose Mendoza DO A 08/24/19 Unknown Knee R FDA Start: 08-24-2019 KNEE ARTHROSCOPY W/ ACL REPAIR Jose Mendoza DO A 08/24/19 Unknown Knee R FDA Start: 08-24-2019 KNEE ARTHROSCOPY W/ ACL REPAIR Angelo Mendoza DOson A 08/24/19 Unknown Knee R FDA Start: 08-24-2019 KNEE ARTHROSCOPY W/ ACL REPAIR Angelo Mendoza DOson A 08/24/19 Unknown Knee R FDA Start: 08-24-2019 KNEE ARTHROSCOPY W/ ACL REPAIR Pierre LLOYD Jose A 08/24/19 Unknown Knee R FDA Start: 08-24-2019 Unknown Unknown 04/10/17 Non Biological Eye FDA Start: 04-10-2017 Comment on above: Right eye Ahmed glau coma valve 04-10-17 Unknown Unknown 02/12/18 Non Biological Flank R FDA Start: 02-12-2018 Comment on above: [email or web address] Scientific Sp inal Cord Stimulator SC-1200Linear Leads SC-2218-50very restrictive heating conditions. B1+juan luis less than or equal to 2.0 UT or JAKE Less than or equal to 0.2 W/kgcannot scan in Normal Operating ModeMust use specific Low JAKE protocol for brain and knee KNEE ARTHROSCOPY W/ ACL REPAIR Brown DO, Jose A 08/24/19 Unknown Knee R FDA Start: 08-24-2019 KNEE ARTHROSCOPY W/ ACL REPAIR Brown DO, Jose A 08/24/19 Unknown Knee R FDA Start: 08-24-2019 KNEE ARTHROSCOPY W/ ACL REPAIR Brown DO, Jose A 08/24/19 Unknown Knee R FDA Start: 08-24-2019 KNEE ARTHROSCOPY W/ ACL REPAIR Brown DO, Jose A 08/24/19 Unknown Knee R FDA Start: 08-24-2019 KNEE ARTHROSCOPY W/ ACL REPAIR Brown DO, Jose A 08/24/19 Unknown Knee R FDA Start: 08-24-2019 KNEE ARTHROSCOPY W/ ACL REPAIR Brown DO, Jose A 08/24/19 Unknown Knee R FDA Start: 08-24-2019 KNEE ARTHROSCOPY W/ ACL REPAIR Brown DO, Jose A 08/24/19 Unknown Knee R FDA Start: 08-24-2019 Unknown Unknown 04/10/17 Non Biological Eye FDA Start: 04-10-2017 Comment on above: Right eye Ahmed glau coma valve 04-10-17 Unknown Unknown 02/12/18 Non Biological Flank R FDA Start: 02-12-2018 Comment on above: [employer] Sp inal Cord Stimulator SC-1200Linear Leads SC-2218-50very restrictive heating conditions. B1+juan luis less than or equal to 2.0 UT or JAKE Less than or equal to 0.2 W/kgcannot scan in Normal Operating ModeMust use specific Low JAKE protocol for brain and knee KNEE ARTHROSCOPY W/ ACL REPAIR Brown DO, Jose A 08/24/19 Unknown Knee R FDA Start: 08-24-2019 KNEE ARTHROSCOPY W/ ACL REPAIR Brown DO, Jose A 08/24/19 Unknown Knee R FDA Start: 08-24-2019 KNEE ARTHROSCOPY W/ ACL REPAIR Jose Mendoza DO A 08/24/19 Unknown Knee R FDA Start: 08-24-2019 KNEE ARTHROSCOPY W/ ACL REPAIR Jose Mendoza DO A 08/24/19 Unknown Knee R FDA Start: 08-24-2019 KNEE ARTHROSCOPY W/ ACL REPAIR Jose Mendoza DO A 08/24/19 Unknown Knee R FDA Start: 08-24-2019 KNEE ARTHROSCOPY W/ ACL REPAIR Jose Mendoza DO A 08/24/19 Unknown Knee R FDA Start: 08-24-2019 KNEE ARTHROSCOPY W/ ACL REPAIR Jose Mendoza DO A 08/24/19 Unknown Knee R FDA Start: 08-24-2019 Unknown Unknown 04/10/17 Non Biological Eye FDA Start: 04-10-2017 Comment on above: Right eye Akilah glau coma valve 04-10-17 Unknown Unknown 02/12/18 Non Biological Flank R FDA Start: 02-12-2018 Comment on above: [email or web address] Scientific Sp inal Cord Stimulator SC-1200Linear Leads DE-2218-50very restrictive heating conditions. B1+juan luis less than or equal to 2.0 UT or JAKE Less than or equal to 0.2 W/kgcannot scan in Normal Operating ModeMust use specific Low JAKE protocol for brain and knee KNEE ARTHROSCOPY W/ ACL REPAIR Jose Mendoza DO A 08/24/19 Unknown Knee R FDA Start: 08-24-2019 KNEE ARTHROSCOPY W/ ACL REPAIR Jose Mendoza DO A 08/24/19 Unknown Knee R FDA Start: 08-24-2019 KNEE ARTHROSCOPY W/ ACL REPAIR Jose Mendoza DO A 08/24/19 Unknown Knee R FDA Start: 08-24-2019 KNEE ARTHROSCOPY W/ ACL REPAIR Angelo Mendoza DOson A 08/24/19 Unknown Knee R FDA Start: 08-24-2019 KNEE ARTHROSCOPY W/ ACL REPAIR Angelo Mendoza DOson A 08/24/19 Unknown Knee R FDA Start: 08-24-2019 KNEE ARTHROSCOPY W/ ACL REPAIR Angelo Mendoza DOson A 08/24/19 Unknown Knee R FDA Start: 08-24-2019 KNEE ARTHROSCOPY W/ ACL REPAIR Angelo Mendoza DOson A 08/24/19 Unknown Knee R FDA Start: 08-24-2019 Unknown Unknown 04/10/17 Non Biological Eye FDA Start: 04-10-2017 Comment on above: Right eye Ahmed glau coma valve 04-10-17 Unknown Unknown 02/12/18 Non Biological Flank R FDA Start: 02-12-2018 Comment on above: [place] [employer] Sp inal Cord Stimulator SC-1200Linear Leads SC-2218-50very restrictive heating conditions. B1+juan luis less than or equal to 2.0 UT or JAKE Less than or equal to 0.2 W/kgcannot scan in Normal Operating ModeMust use specific Low JAKE protocol for brain and knee KNEE ARTHROSCOPY W/ ACL REPAIR Brown DO, Jose A 08/24/19 Unknown Knee R FDA Start: 08-24-2019 KNEE ARTHROSCOPY W/ ACL REPAIR Brown DO, Jose A 08/24/19 Unknown Knee R FDA Start: 08-24-2019 KNEE ARTHROSCOPY W/ ACL REPAIR Brown DO, Jose A 08/24/19 Unknown Knee R FDA Start: 08-24-2019 KNEE ARTHROSCOPY W/ ACL REPAIR Brown DO, Jose A 08/24/19 Unknown Knee R FDA Start: 08-24-2019 KNEE ARTHROSCOPY W/ ACL REPAIR Brown DO, Jose A 08/24/19 Unknown Knee R FDA Start: 08-24-2019 KNEE ARTHROSCOPY W/ ACL REPAIR Brown DO, Jose A 08/24/19 Unknown Knee R FDA Start: 08-24-2019 KNEE ARTHROSCOPY W/ ACL REPAIR Brown DO, Jose A 08/24/19 Unknown Knee R FDA Start: 08-24-2019 Unknown Unknown 04/10/17 Non Biological Eye FDA Start: 04-10-2017 Comment on above: Right eye Ahmed glau coma valve 04-10-17 Unknown Unknown 02/12/18 Non Biological Flank R FDA Start: 02-12-2018 Comment on above: [place] [employer] Sp inal Cord Stimulator SC-1200Linear Leads SC-2218-50very restrictive heating conditions. B1+juan luis less than or equal to 2.0 UT or JAKE Less than or equal to 0.2 W/kgcannot scan in Normal Operating ModeMust use specific Low JAKE protocol for brain and knee KNEE ARTHROSCOPY W/ ACL REPAIR Brown DO, Jose A 08/24/19 Unknown Knee R FDA Start: 08-24-2019 KNEE ARTHROSCOPY W/ ACL REPAIR Brown DO, Jose A 08/24/19 Unknown Knee R FDA Start: 08-24-2019 KNEE ARTHROSCOPY W/ ACL REPAIR Jose Mendoza DO A 08/24/19 Unknown Knee R FDA Start: 08-24-2019 KNEE ARTHROSCOPY W/ ACL REPAIR Jose Mendoza DO A 08/24/19 Unknown Knee R FDA Start: 08-24-2019 KNEE ARTHROSCOPY W/ ACL REPAIR Jose Mendoza DO A 08/24/19 Unknown Knee R FDA Start: 08-24-2019 KNEE ARTHROSCOPY W/ ACL REPAIR Jose Mendoza DO A 08/24/19 Unknown Knee R FDA Start: 08-24-2019 KNEE ARTHROSCOPY W/ ACL REPAIR Jose Mendoza DO A 08/24/19 Unknown Knee R FDA Start: 08-24-2019 Unknown Unknown 04/10/17 Non Biological Eye FDA Start: 04-10-2017 Comment on above: Right eye Ahmed glau coma valve 04-10-17 Unknown Unknown 02/12/18 Non Biological Flank R FDA Start: 02-12-2018 Comment on above: [employer] Sp inal Cord Stimulator SC-1200Linear Leads DE-2218-50very restrictive heating conditions. B1+juan luis less than or equal to 2.0 UT or JAKE Less than or equal to 0.2 W/kgcannot scan in Normal Operating ModeMust use specific Low JAKE protocol for brain and knee KNEE ARTHROSCOPY W/ ACL REPAIR Jose Mendoza DO 08/24/19 Unknown Knee R FDA Start: 08-24-2019 KNEE ARTHROSCOPY W/ ACL REPAIR Jose Mendoza DO 08/24/19 Unknown Knee R FDA Start: 08-24-2019 KNEE ARTHROSCOPY W/ ACL REPAIR Jose Mendoza DO A 08/24/19 Unknown Knee R FDA Start: 08-24-2019 KNEE ARTHROSCOPY W/ ACL REPAIR Jose Mendoza DO A 08/24/19 Unknown Knee R FDA Start: 08-24-2019 KNEE ARTHROSCOPY W/ ACL REPAIR Jose Mendoza DO A 08/24/19 Unknown Knee R FDA Start: 08-24-2019 KNEE ARTHROSCOPY W/ ACL REPAIR Jose Mendoza DO A 08/24/19 Unknown Knee R FDA Start: 08-24-2019 KNEE ARTHROSCOPY W/ ACL REPAIR Jose Mendoza DO A 08/24/19 Unknown Knee R FDA Start: 08-24-2019 Unknown Unknown 04/10/17 Non Biological Eye FDA Start: 04-10-2017 Comment on above: Right eye Akilah glau coma valve 04-10-17 Unknown Unknown 02/12/18 Non Biological Flank R FDA Start: 02-12-2018 Comment on above: [employer] Sp inal Cord Stimulator SC-1200Linear Leads SC-2218-50very restrictive heating conditions. B1+juan luis less than or equal to 2.0 UT or JAKE Less than or equal to 0.2 W/kgcannot scan in Normal Operating ModeMust use specific Low JAKE protocol for brain and knee KNEE ARTHROSCOPY W/ ACL REPAIR Brown DO, Jose A 08/24/19 Unknown Knee R FDA Start: 08-24-2019 KNEE ARTHROSCOPY W/ ACL REPAIR Brown DO, Jose A 08/24/19 Unknown Knee R FDA Start: 08-24-2019 KNEE ARTHROSCOPY W/ ACL REPAIR Brown DO, Jose A 08/24/19 Unknown Knee R FDA Start: 08-24-2019 KNEE ARTHROSCOPY W/ ACL REPAIR Brown DO, Jose A 08/24/19 Unknown Knee R FDA Start: 08-24-2019 KNEE ARTHROSCOPY W/ ACL REPAIR Brown DO, Jose A 08/24/19 Unknown Knee R FDA Start: 08-24-2019 KNEE ARTHROSCOPY W/ ACL REPAIR Brown DO, Jose A 08/24/19 Unknown Knee R FDA Start: 08-24-2019 KNEE ARTHROSCOPY W/ ACL REPAIR Brown DO, Jose A 08/24/19 Unknown Knee R FDA Start: 08-24-2019 Unknown Unknown 04/10/17 Non Biological Eye FDA Start: 04-10-2017 Comment on above: Right eye Akilah ingramu coma valve 04-10-17 Unknown Unknown 02/12/18 Non Biological Flank R FDA Start: 02-12-2018 Comment on above: [place] [employer] Sp inal Cord Stimulator SC-1200Linear Leads SC-2218-50very restrictive heating conditions. B1+juan luis less than or equal to 2.0 UT or JAKE Less than or equal to 0.2 W/kgcannot scan in Normal Operating ModeMust use specific Low JAKE protocol for brain and knee KNEE ARTHROSCOPY W/ ACL REPAIR Brown DO, Jose A 08/24/19 Unknown Knee R FDA Start: 08-24-2019 KNEE ARTHROSCOPY W/ ACL REPAIR Jose Mendoza DO A 08/24/19 Unknown Knee R FDA Start: 08-24-2019 KNEE ARTHROSCOPY W/ ACL REPAIR Jose Mendoza DO A 08/24/19 Unknown Knee R FDA Start: 08-24-2019 KNEE ARTHROSCOPY W/ ACL REPAIR Jose Mendoza DO A 08/24/19 Unknown Knee R FDA Start: 08-24-2019 KNEE ARTHROSCOPY W/ ACL REPAIR Jose Mendoza DO A 08/24/19 Unknown Knee R FDA Start: 08-24-2019 KNEE ARTHROSCOPY W/ ACL REPAIR Jose Mendoza DO A 08/24/19 Unknown Knee R FDA Start: 08-24-2019 KNEE ARTHROSCOPY W/ ACL REPAIR Jose Mendoza DO A 08/24/19 Unknown Knee R FDA Start: 08-24-2019 Unknown Unknown 04/10/17 Non Biological Eye FDA Start: 04-10-2017 Comment on above: Right eye Ahmed glau coma valve 04-10-17 Unknown Unknown 02/12/18 Non Biological Flank R FDA Start: 02-12-2018 Comment on above: [email or web address] Scientific Sp inal Cord Stimulator SC-1200Linear Leads SC-2218-50very restrictive heating conditions. B1+juan luis less than or equal to 2.0 UT or JAKE Less than or equal to 0.2 W/kgcannot scan in Normal Operating ModeMust use specific Low JAKE protocol for brain and knee KNEE ARTHROSCOPY W/ ACL REPAIR Jose Mendoza DO 08/24/19 Unknown Knee R FDA Start: 08-24-2019 KNEE ARTHROSCOPY W/ ACL REPAIR Jose Mendoza DO A 08/24/19 Unknown Knee R FDA Start: 08-24-2019 KNEE ARTHROSCOPY W/ ACL REPAIR Jose Mendoza DO A 08/24/19 Unknown Knee R FDA Start: 08-24-2019 KNEE ARTHROSCOPY W/ ACL REPAIR Jose Mendoza DO A 08/24/19 Unknown Knee R FDA Start: 08-24-2019 KNEE ARTHROSCOPY W/ ACL REPAIR Jose Mendoza DO A 08/24/19 Unknown Knee R FDA Start: 08-24-2019 KNEE ARTHROSCOPY W/ ACL REPAIR Jose Mendoza DO A 08/24/19 Unknown Knee R FDA Start: 08-24-2019 KNEE ARTHROSCOPY W/ ACL REPAIR Jose Mendoza DO A 08/24/19 Unknown Knee R FDA Start: 08-24-2019 Unknown Unknown 04/10/17 Non Biological Eye FDA Start: 04-10-2017 Comment on above: Right eye Ahmed glau coma valve 04-10-17 Unknown Unknown 02/12/18 Non Biological Flank R FDA Start: 02-12-2018 Comment on above: [employer] Sp inal Cord Stimulator SC-1200Linear Leads SC-2218-50very restrictive heating conditions. B1+juan luis less than or equal to 2.0 UT or JAKE Less than or equal to 0.2 W/kgcannot scan in Normal Operating ModeMust use specific Low JAKE protocol for brain and knee KNEE ARTHROSCOPY W/ ACL REPAIR Jose Mendoza DO A 08/24/19 Unknown Knee R FDA Start: 08-24-2019 KNEE ARTHROSCOPY W/ ACL REPAIR Angelo Mendoza DOson A 08/24/19 Unknown Knee R FDA Start: 08-24-2019 KNEE ARTHROSCOPY W/ ACL REPAIR Angelo Mendoza DOson A 08/24/19 Unknown Knee R FDA Start: 08-24-2019 KNEE ARTHROSCOPY W/ ACL REPAIR Pierre LLOYD, Jose A 08/24/19 Unknown Knee R FDA Start: 08-24-2019 KNEE ARTHROSCOPY W/ ACL REPAIR Angelo Mendoza DOson A 08/24/19 Unknown Knee R FDA Start: 08-24-2019 KNEE ARTHROSCOPY W/ ACL REPAIR Pierre LLOYD, Jose A 08/24/19 Unknown Knee R FDA Start: 08-24-2019 KNEE ARTHROSCOPY W/ ACL REPAIR Angelo Mendoza DOson A 08/24/19 Unknown Knee R FDA Start: 08-24-2019 Unknown Unknown 04/10/17 Non Biological Eye FDA Start: 04-10-2017 Comment on above: Right eye Ahmed glau coma valve 04-10-17 Unknown Unknown 02/12/18 Non Biological Flank R FDA Start: 02-12-2018 Comment on above: [place] [employer] Sp inal Cord Stimulator SC-1200Linear Leads SC-2218-50very restrictive heating conditions. B1+juan luis less than or equal to 2.0 UT or JAKE Less than or equal to 0.2 W/kgcannot scan in Normal Operating ModeMust use specific Low JAKE protocol for brain and knee KNEE ARTHROSCOPY W/ ACL REPAIR Jose Mendoza DO A 08/24/19 Unknown Knee R FDA Start: 08-24-2019 KNEE ARTHROSCOPY W/ ACL REPAIR Angelo Mendoza DOson A 08/24/19 Unknown Knee R FDA Start: 08-24-2019 KNEE ARTHROSCOPY W/ ACL REPAIR Angelo Mendoza DOson A 08/24/19 Unknown Knee R FDA Start: 08-24-2019 KNEE ARTHROSCOPY W/ ACL REPAIR Angelo Mendoza DOson A 08/24/19 Unknown Knee R FDA Start: 08-24-2019 KNEE ARTHROSCOPY W/ ACL REPAIR Jose Mendoza DO A 08/24/19 Unknown Knee R FDA Start: 08-24-2019 KNEE ARTHROSCOPY W/ ACL REPAIR Jose Mendoza DO A 08/24/19 Unknown Knee R FDA Start: 08-24-2019 KNEE ARTHROSCOPY W/ ACL REPAIR Jose Mendoza DO A 08/24/19 Unknown Knee R FDA Start: 08-24-2019 Unknown Unknown 04/10/17 Non Biological Eye FDA Start: 04-10-2017 Comment on above: Right eye Akilah glau coma valve 04-10-17 Unknown Unknown 02/12/18 Non Biological Flank R FDA Start: 02-12-2018 Comment on above: [email or web address] Scientific Sp inal Cord Stimulator SC-1200Linear Leads SC-2218-50very restrictive heating conditions. B1+juan luis less than or equal to 2.0 UT or JAKE Less than or equal to 0.2 W/kgcannot scan in Normal Operating ModeMust use specific Low JAKE protocol for brain and knee KNEE ARTHROSCOPY W/ ACL REPAIR Jose Mendoza DO A 08/24/19 Unknown Knee R FDA Start: 08-24-2019 KNEE ARTHROSCOPY W/ ACL REPAIR Angelo Mendoza DOson A 08/24/19 Unknown Knee R FDA Start: 08-24-2019 KNEE ARTHROSCOPY W/ ACL REPAIR Angelo Mendoza DOson A 08/24/19 Unknown Knee R FDA Start: 08-24-2019 KNEE ARTHROSCOPY W/ ACL REPAIR Angelo Mendoza DOson A 08/24/19 Unknown Knee R FDA Start: 08-24-2019 KNEE ARTHROSCOPY W/ ACL REPAIR Angelo Mendoza DOson A 08/24/19 Unknown Knee R FDA Start: 08-24-2019 KNEE ARTHROSCOPY W/ ACL REPAIR Jose Mendoza DO A 08/24/19 Unknown Knee R FDA Start: 08-24-2019 KNEE ARTHROSCOPY W/ ACL REPAIR Jose Mendoza DO A 08/24/19 Unknown Knee R FDA Start: 08-24-2019 Unknown Unknown 04/10/17 Non Biological Eye FDA Start: 04-10-2017 Comment on above: Right eye Ahmed glau coma valve 04-10-17 Unknown Unknown 02/12/18 Non Biological Flank R FDA Start: 02-12-2018 Comment on above: [employer] Sp inal Cord Stimulator SC-1200Linear Leads SC-2218-50very restrictive heating conditions. B1+juan luis less than or equal to 2.0 UT or JAKE Less than or equal to 0.2 W/kgcannot scan in Normal Operating ModeMust use specific Low JAKE protocol for brain and knee KNEE ARTHROSCOPY W/ ACL REPAIR Jose Mendoza DO A 08/24/19 Unknown Knee R FDA Start: 08-24-2019 KNEE ARTHROSCOPY W/ ACL REPAIR Jose Mendoza DO A 08/24/19 Unknown Knee R FDA Start: 08-24-2019 KNEE ARTHROSCOPY W/ ACL REPAIR Jose Mendoza DO A 08/24/19 Unknown Knee R FDA Start: 08-24-2019 KNEE ARTHROSCOPY W/ ACL REPAIR Jose Mendoza DO A 08/24/19 Unknown Knee R FDA Start: 08-24-2019 KNEE ARTHROSCOPY W/ ACL REPAIR Jose Mendoza DO A 08/24/19 Unknown Knee R FDA Start: 08-24-2019 KNEE ARTHROSCOPY W/ ACL REPAIR Jose Mendoza DO A 08/24/19 Unknown Knee R FDA Start: 08-24-2019 KNEE ARTHROSCOPY W/ ACL REPAIR Angelo Mendoza DOson A 08/24/19 Unknown Knee R FDA Start: 08-24-2019 Unknown Unknown 04/10/17 Non Biological Eye FDA Start: 04-10-2017 Comment on above: Right eye Ahmed glau coma valve 04-10-17 Unknown Unknown 02/12/18 Non Biological Flank R FDA Start: 02-12-2018 Comment on above: [place] [employer] Sp inal Cord Stimulator SC-1200Linear Leads SC-2218-50very restrictive heating conditions. B1+juan luis less than or equal to 2.0 UT or JAKE Less than or equal to 0.2 W/kgcannot scan in Normal Operating ModeMust use specific Low JAKE protocol for brain and knee Goals Date Patient Goal Desired Activity /State Functional Status Date Assessment Result Facility 02-07-2023 Functional Status N/A [facility] 12-20-2022 Functional Status N/A [facility] 09-18-2022 Functional Status N/A [facility] 06-11-2022 Functional Status N/A [facility] 05-30-2022 Functional Status N/A [facility] 01-24-2022 Functional Status N/A [facility] 01-18-2022 Functional Status N/A [facility] [place] Clinical Notes 01-10-2021 to 02-07-2023 Note Date & Type Note Facility 02-07-2023 Evaluation + Plan note [facility] from: Title:Pain Management * Author:Wilson Deras DO Date:02/07/23 Impression and Plan History, physical examination, and personal review of pertinent imaging results indicate a diagnosis of: -Right shoulder pain, right shoulder contracture, multiple sclerosis Plan: -Intra-articular corticosteroid injections performed in the right shoulder today -Continue Lyrica 200 mg 3 times daily -Schedule patient in 3 months for Botox in the right shoulder and arm, we will obtain records for dosage and locations. Last injection was 01/30/2023 An in office procedure was performed today. Risks and benefits were discussed at length, verbal consent was obtained from the patient. The area was prepped under strict aseptic technique using alcohol pads. Location: Right shoulder glenohumeral intra-articular corticosteroid injection, posterior glenohumeral joint by palpation. Anatomic Landmarks: Right shoulder glenohumeral joint. Medications: 3 mL of 0.25% bupivacaine with 1 mL 40 mg/mL Kenalog Procedure: 4 mL of the above solution was injected at the above anatomic landmark with negative aspiration for blood. the patient tolerated the procedure well without complication and will follow up regarding changes after procedure. Patient observed post-procedure without further issue or new complaints. Improvement in pain was noted. Patient was counseled on the above diagnosis and treatment, all questions were answered and patient agrees to adhere to the plan above. Risk and benefits of appropriate procedures and medications were reviewed as well with patient, who voiced understanding and agreeance. Patient was counseled on smoking cessation and/or continuing to abstain from nicotine/tobacco products as appropriate based on history; as smoking/nicotine can contribute to increased pain overall and decreased wound healing. Patient counseled on maintaining a healthy BMI as part of the total treatment of their pain and to reduce stress/strain on joints. Patient invited to return or call with any questions or concerns that arise. Future Appointments Appointment Date:02/13/2023 08:00:00 AM Scheduled Provider: Location:.[place]ICAL [place] Appointment Type:PT 60 (FT) Appointment Date:02/13/2023 09:00:00 AM Scheduled Provider: Location:.OCCUPATIONAL Appointment Type:OT 60 (FT) Appointment Date:02/13/2023 09:00:00 AM Scheduled Provider: Location:[facility] Mini Appointment Type:URO Nurse Visit Appointment Date:02/14/2023 08:45:00 AM Scheduled Provider: Location:.[place] Appointment Type:PT Re-Eval 60 (FT) Appointment Date:02/14/2023 10:00:00 AM Scheduled Provider: Location:.OCCUPATIONAL Appointment Type:OT Re-Eval () [facility]12-13-2023 NoteHNO ID: [id number] Author: Haile Barrios MD Service: ? Author Type: Physician Type: Progress Notes Filed: 01/31/2023 2:38 PM Note Text: BOTULINUM TOXIN THERAPY Ms. Gutierrez was accompanied by her daughter (stayed in [facility]) Current complaints / history since last visit: most recent botulinum toxin injections on 10/31/22. Saw Orthopedics in November who offered a CSI for her right shoulder pain. That is scheduled for 02/12. Botox was effective 7-8 weeks for fingers not shoulder. Baclofen stopped a few months ago. Was taking 20mg twice a day. Would like to restart. Illnesses / hospitalizations since the last visit: recurrent UTI Other updates: no Anticoagulation: plavix, not stopped for injections Home stretching/exercise routine: daily stretching PT/OT: aquatherapy on hold due to fear of the water, does have PT/OT twice a week BT therapy effective? Yes - stiffness and active function (range of motion) Duration of benefit: 8 weeks Side effects: Unsure (reported migraine) Spasm scale: 2=Infrequent full spasms occuring less than once per hour Pain related to the purpose of the visit: Yes LOCATION: R shoulder into last two finger of hand PAIN SCALE: 5 on a scale of 0-10 PAIN CHARACTER: aching, moderate, sharp, and stiff DURATION: (How long have you had the pain?) 2 years FREQUENCY: (How often does the pain occur?) occurs constantly Patient Entered Data PROMIS No flowsheet data found. Spasticity NRS 08/03/2022 12/06/2021 11/14/2021 Spasticity Level - 8 7 Spasm Scale 3=Spasms occuring more than once per hour - - Spasm Scale - Trendable Number 3 - - Spasm Scale 12/06/2021 11/14/2021 Spasm Frequency Infrequent full spasms occuriung less than once per hour Spasms occurring more than once per hour Spasm Severity Moderate Moderate Global Impression of Change 12/06/2021 11/14/2021 Rehab global impression of change No change Not applicable Nutritional status: appetite is okay , weight is stable, swallowing is unchanged (has not scheduled FERRULER visit) Driving issues: NA does not drive Safety concerns regarding living situations and safety at home: No At risk for falling: Yes . Actual falls since last visit: frequency/number 1 slid out of wheelchair, stressed shoulder. Examination: Strength Right Left Shoulder abduction 0 5 Elbow flexion 1 5 Elbow extension 1 5 Wrist extension 1 5 Foundation Relations Manager strength (kg) 32 Hip flexion 0 5 Knee flexion 0 5 Knee extension 0 5 Plantarflexion 0 5 Dorsiflexion 0 5 Spasticity Right Left Shoulder 4 0 Elbow flexion 1 0 Elbow extension 1 0 Wrist flexion 1 0 Wrist extension 0 0 Finger flexion 3 0 Finger extension 0 0 Hip adduction 0 0 Knee extension 0. 0 Knee flexion 0 0 Plantarflexion 0 0 Modified Jesse Scale 0 - No increase in tone 1 - Slight increase in tone (catch and release at end of ROM) 1+ - Slight increase in tone, manifested by a catch, followed by minimal resistance throughout remainder (less than half of ROM) 2 - Marked increase in tone through most of the ROM, but affected part(s) easily moved 3 - Considerable increase in tone; passive movement difficult 4 - Affected part(s) rigid in flexion or extension 1+/5 right set designer strength. Spasms observed: RUE: no right upper extremity spasms LUE: no left upper extremity spasms RLE: no right lower extremity spasms LLE: no left lower extremity spasms Timed 25 foot walk: N/A Assistance required: wheelchair, other and AFO - right (brace for Right hand) Ambulation Index Score: 9 - Restricted to wheelchair, dependent for transfers UNIVERSAL PROTOCOL / SAFETY CHECKLIST Procedure to be Performed: Botulinum toxin injections Sign In: A Moment of CARE was completed. Personnel directly involved with the procedure wore the appropriate PPE (Personal Protective Equipment). Special equipment: EMG, US Patient/Surrogate Stated/Verified: PATIENT VERIFIED(optional for EMERGENT procedures): Patient name, Date of , Relevant allergies, and The intended procedure Time Out Communication: Intended patient and procedure match the source documents. Consent documented and matches the intended procedure. No relevant labs, photos, and/or imaging studies were applicable for review. Correct side/site marked and visible. Medications required for procedure verified. No fire risk assessment and interventions applicable. No implant(s) inserted. Sign Out: SIGN OUT (optional for EMERGENT procedures): No specimen collected. All instruments, equipment, possible retained foreign bodies accounted for. Post-procedure follow-up management communicated and Plan of Care Visit completed when applicable. MD Caro Mosqueda MD UNIVERSAL PROTOCOL / SAFETY CHECKLIST The risks, benefits and alternatives of the procedure were explained. Written Consent Obtained: yes - 11/14/2021 Clinician(s) performing the injections: Haile Harrison (more content not included)...[facility]12-13-2023 Instructions* Patient Instructions* Caro May MD - 01/30/2023 1:08 PM EST You have received botulinum toxin injections today. The skin around the site of injections should be monitored for a couple of days. If redness or swelling occur, the skin should be examined by a health care transition manager to rule out infection. Please contact our office via [employer] or by phone at [phone] in 2 weeks to report on the effects of the injections, or any time with any questions or concerns. Please note that your next injections should not be scheduled less than 90 days from today. If your health insurance changes before the next injections, please contact our office at [phone] as soon as possible so we can submit a new pre- authorization if needed. Please note that we may not be able to perform the injections if your insurance changes and the treatment is not pre-authorized. Haile Barrios MD [facility] History of Present illness Narrative* Haile Barrios MD - 01/30/2023 12:57 PM EST BOTULINUM TOXIN THERAPY Ms. Gutierrez was accompanied by her daughter (stayed in [place]) Current complaints / history since last visit: most recent botulinum toxin injections on 10/31/22. Saw Orthopedics in November who offered a CSI for her right shoulder pain. That is scheduled for 02/12. Botox was effective 7-8 weeks for fingers not shoulder. Baclofen stopped a few months ago. Was taking 20mg twice a day. Would like to restart. Illnesses / hospitalizations since the last visit: recurrent UTI Other updates: no Anticoagulation: plavix, not stopped for injections Home stretching/exercise routine: daily stretching PT/OT: aquatherapy on hold due to fear of the water, does have PT/OT twice a week BT therapy effective? Yes - stiffness and active function (range of motion) Duration of benefit: 8 weeks Side effects: Unsure (reported migraine) Spasm scale: 2=Infrequent full spasms occuring less than once per hour Pain related to the purpose of the visit: Yes LOCATION: R shoulder into last two finger of hand PAIN SCALE: 5 on a scale of 0-10 PAIN CHARACTER: aching, moderate, sharp, and stiff DURATION: (How long have you had the pain?) 2 years FREQUENCY: (How often does the pain occur?) occurs constantly Patient Entered Data PROMIS No flowsheet data found. Spasticity NRS 08/03/2022 12/06/2021 11/14/2021 Spasticity Level - 8 7 Spasm Scale 3=Spasms occuring more than once per hour - - Spasm Scale - Trendable Number 3 - - Spasm Scale 12/06/2021 11/14/2021 Spasm Frequency Infrequent full spasms occuriung less than once per hour Spasms occurring more thanonce per hour Spasm Severity Moderate Moderate Global Impression of Change 12/06/2021 11/14/2021 Rehab global impression of change No change Not applicable Nutritional status: appetite is okay , weight is stable, swallowing is unchanged (has not scheduled FERRULER visit) Driving issues: NA does not drive Safety concerns regarding living situations and safety at home: No At risk for falling: Yes . Actual falls since last visit: frequency/number 1 slid out of wheelchair, stressed shoulder. Examination: Strength Right Left Shoulder abduction 0 5 Elbow flexion 1 5 Elbow extension 1 5 Wrist extension 1 5 Foundation Relations Manager strength (kg) 32 Hip flexion 0 5 Knee flexion 0 5 Knee extension 0 5 Plantarflexion 0 5 Dorsiflexion 0 5 Spasticity Right Left Shoulder 4 0 Elbow flexion 1 0 Elbow extension 1 0 Wrist flexion 1 0 Wrist extension 0 0 Finger flexion 3 0 Finger extension 0 0 Hip adduction 0 0 Knee extension 0. 0 Knee flexion 0 0 Plantarflexion 0 0 Modified Jesse Scale 0 - No increase in tone 1 - Slight increase in tone (catch and release at end of ROM) 1+ - Slight increase in tone, manifested by a catch, followed by minimal resistance throughout remainder (less than half of ROM) 2 - Marked increase in tone through most of the ROM, but affected part(s) easily moved 3 - Considerable increase in tone; passive movement difficult 4 - Affected part(s) rigid in flexion or extension 1+/5 right set designer strength. Spasms observed: RUE: no right upper extremity spasms LUE: no left upper extremity spasms RLE: no right lower extremity spasms LLE: no left lower extremity spasms Timed 25 foot walk: N/A Assistance required: wheelchair, other and AFO - right (brace for Right hand) Ambulation Index Score: 9 - Restricted to wheelchair, dependent for transfers UNIVERSAL PROTOCOL / SAFETY CHECKLIST Procedure to be Performed: Botulinum toxin injections Sign In: A Moment of CARE was completed. Personnel directly involved with the procedure wore the appropriate PPE (Personal Protective Equipment). Special equipment: EMG, US Patient/Surrogate Stated/Verified: PATIENT VERIFIED(optional for EMERGENT procedures): Patient name, Date of , Relevant allergies, and The intended procedure Time Out Communication: Intended patient and procedure match the source documents. Consent documented and matches the intended procedure. No relevant labs, photos, and/or imaging studies were applicable for review. Correct side/site marked and visible. Medications required for procedure verified. No fire risk assessment and interventions applicable. No implant(s) inserted. Sign Out: SIGN OUT (optional for EMERGENT procedures): No specimen collected. All instruments, equipment, possible retained foreign bodies accounted for. Post-procedure follow-up management communicated and Plan of Care Visit completed when applicable. MD Caro Mosqueda MD UNIVERSAL PROTOCOL / SAFETY CHECKLIST The risks, benefits and alternatives of the procedure were explained. Written Consent Obtained: yes - 11/14/2021 Clinician(s) performing the injections: Haile Barrios MD, Caro May MD Incident Commander: Marilia Atnony RN The patient was positioned seated in wheelchair. Brand of toxin injected: Botox. After skin preparation with alcohol, a total dose of 400 units were injected as follows: Muscle Limb/Side Dose Guidance Comments Pectoralis RUE 150 units EMG 2 sites FCR RUE 50 units EMG 1 sites FDP RUE 50 units EMG 1 sites FDS RUE 100 units EMG 2 sites Lat dorsi RUE 50 units EMG + US 1 sites Total Dose: 400 Dilution: 100 units / 1 ml LOT #: [id number] Expiration Date: Month: 3 Year: 26 0 units discarded The injections were well tolerated. Minimal bleeding occurred at the injection sites. Assessment: (G81.10) Spastic hemiparesis affecting dominant side (HCC) (primary encounter diagnosis) (G37.3) Acute transverse myelitis (HCC) Ms. Gutierrez is a 47-year-old female with a history of right spastic hemiparesis mainly affecting her right upper extremity, who presents today for repeat botulinum toxin injections. She has benefited from injections in the past and upon discussion agreed to repeat injections today. Targeting same muscles, in total 400 units. Patient tolerated the procedure well. Follow-up in 3 months for repeat injections. Plan: 1 - Repeat injections in 3 months, 400 units. Injections are performed in wheelchair. 2 - Continue PT/OT 3 - Needs refill for Baclofen Time spent with patient: 45 mn. Caro May MD Spinal Cord Injury Fellow PHYSICAL MEDICINE AND REHABILITATION STAFF NOTE I participated in the christopher elements of the history and examination, and agree with the above documented information. Assessment and plan were discussed and approved by myself. I was physically presentduring the entire procedure. Ms. Gutierrez reports significant benefit from botulinum toxin injections in the distal muscles of the RUE, not as much in the proximal muscles. We discussed treatment options and Ms. Gutierrez agreed to keep the total dose of Botox unchanged, adjusting the muscle distribution to increase the dose injected in the FDS (no injections to elbow muscles). She is scheduled for a R shoulder injection on 02/07. There is a definite MSK component to the R shoulder severe ROM limitations, although spasticity is also likely a contributing factor. Ms. Gutierrez asked if we could take over her baclofen prescription. This used to be prescribed by her pain management physician. I refilled the prescription. Haile Barrios MD Department of PM&R [facility] Evaluation + Plan note Future Appointments Appointment Date:01/25/2023 10:00:00 AM Scheduled Provider: Location:.OCCUPATIONAL Appointment Type:OT 60 (FT) Appointment Date:01/28/2023 08:00:00 AM Scheduled Provider: Location:.PH[place]ICAL [place] Appointment Type:PT 60 (FT) Appointment Date:01/28/2023 09:00:00 AM Scheduled Provider: Location:FT.OCCUPATIONAL Appointment Type:OT 60 (FT) Appointment Date:01/31/2023 09:45:00 AM Scheduled Provider: Location:FT.PHYSICAL [place] Appointment Type:PT Lite Gait (FT) Appointment Date:02/04/2023 08:30:00 AM Scheduled Provider: Location:FT.OCCUPATIONAL Appointment Type:OT 60 (FT) Appointment Date:02/04/2023 09:30:00 AM Scheduled Provider: Location:FT.PHYSICAL [place] Appointment Type:PT 60 (FT) Appointment Date:02/06/2023 08:00:00 AM Scheduled Provider: Location:FT.[place]ICAL [place] Appointment Type:PT 60 (FT) Appointment Date:02/06/2023 09:00:00 AM Scheduled Provider: Location:FT.OCCUPATIONAL Appointment Type:OT 60 (FT) Appointment Date:02/07/2023 08:15:00 AM Scheduled Provider:Camilo Deras DO Location:FT.[facility] [place] Appointment Type:Pain Management - Office Injection (FT) Appointment Date:02/13/2023 08:00:00 AM Scheduled Provider: Location:.[place]ICAL [place] Appointment Type:PT 60 (FT) Appointment Date:02/13/2023 09:00:00 AM Scheduled Provider: Location:.OCCUPATIONAL Appointment Type:OT 60 (FT) Appointment Date:02/13/2023 09:00:00 AM Scheduled Provider: [place] [place]oint[place] Type:URO Nurse Visit Appointment Date:02/14/2023 08:45:00 AM Scheduled Provider: Location:.[place] Appointment Type:PT Re-Eval 60 (FT) Appointment Date:02/14/2023 10:00:00 AM Scheduled Provider: Location:.OCCUPATIONAL Appointment Type:OT Re-Eval (FT) [facility] 11-02-2023 Evaluation + Plan noteExtracted from: Title:Pain Management * Author:Wilson Deras DO Date:12/20/22 Impression and Plan History, physical examination, and personal review of pertinent imaging results indicate a diagnosis of: -MS, right shoulder pain, right shoulder contracture, right trochanteric bursitis Plan: -Refill Lyrica 200 mg 3 times daily, update controlled substance agreement urine drug screen is appropriate -Discussed that we can perform a right shoulder intra-articular corticosteroid injection to see how this helps with her pain, if this does help with her pain we can continue these on an as-needed basis however we also discussed performing a suprascapular nerve block to see if this would help as well, we can consider this after steroid injections if appropriate -We also discussed performing a right trochanteric bursa injection that we can perform on an as-needed basis if this worsens -We also discussed taking over her right shoulder Botox injections which we can perform, we discussed that she should maintain her follow-up appointment for continuity with her current physician however we can take over performing these if it is easier for her and we can obtain these records -Follow-up for right shoulder intra-articular injection as soon as able to be scheduled Patient was counseled on the above diagnosis and treatment, all questions were answered and patient agrees to adhere to the plan above. Risk and benefits of appropriate procedures and medications were reviewed as well with patient, who voiced understanding and agreeance. Patient was counseled on smoking cessation and/or continuing to abstain from nicotine/tobacco products as appropriate based on history; as smoking/nicotine can contribute to increased pain overall and decreased wound healing. Patient counseled on maintaining a healthy BMI as part of the total treatment of their pain and to reduce stress/strain on joints. Patient invited to return or call with any questions or concerns that arise. Future Appointments Appointment Date:12/24/2022 08:00:00 AM Scheduled Provider: Location:.[place]ICAL [place] Appointment Type:PT 45 (FT) Appointment Date:12/24/2022 08:45:00 AM Scheduled Provider: Location:FT.OCCUPATIONAL Appointment Type:OT 60 (FT) Appointment Date:12/26/2022 10:00:00 AM Scheduled Provider: Location:FT.OCCUPATIONAL Appointment Type:OT 60 (FT) Appointment Date:12/26/2022 11:00:00 AM Scheduled Provider: Location:.[place]ICAL [place] Appointment Type:PT 60 (FT) Appointment Date:12/31/2022 09:00:00 AM Scheduled Provider: Location:.OCCUPATIONAL Appointment Type:OT 60 (FT) Appointment Date:12/31/2022 10:00:00 AM Scheduled Provider: Location:.[place]ICAL [place] Appointment Type:PT 60 (FT) Appointment Date:01/01/2023 09:00:00 AM Scheduled Provider: Location:[facility] Mini Appointment Type:URO Nurse Visit Appointment Date:01/02/2023 08:15:00 AM Scheduled Provider: Location:.[place] Appointment Type:PT Re-Eval 45 (FT) Appointment Date:01/02/2023 09:00:00 AM Scheduled Provider: Location:.OCCUPATIONAL Appointment Type:OT Re-Eval (FT) Appointment Date:01/07/2023 09:30:00 AM Scheduled Provider: Location:.OCCUPATIONAL Appointment Type:OT 60 (FT) Appointment Date:01/09/2023 08:15:00 AM Scheduled Provider: Location:.OCCUPATIONAL Appointment Type:OT 60 (FT) Appointment Date:01/14/2023 08:15:00 AM Scheduled Provider: Location:.OCCUPATIONAL Appointment Type:OT 60 (FT) Appointment Date:01/16/2023 08:15:00 AM Scheduled Provider: Location:.OCCUPATIONAL Appointment Type:OT Re-Eval (FT) [facility]10-02-2023 Evaluation + Plan note Future Appointments Appointment Date:12/12/2022 10:00:00 AM Scheduled Provider: Location:.OCCUPATIONAL Appointment Type:OT 60 (FT) Appointment Date:12/12/2022 11:00:00 AM Scheduled Provider: Location:.[place]ICAL [place] Appointment Type:PT 60 (FT) Appointment Date:12/17/2022 08:45:00 AM Scheduled Provider: Location:.OCCUPATIONAL Appointment Type:OT 60 (FT) Appointment Date:12/17/2022 10:15:00 AM Scheduled Provider: Location:FT.PH[place]ICAL [place] Appointment Type:PT 45 (FT) Appointment Date:12/19/2022 08:15:00 AM Scheduled Provider: Location:FT.OCCUPATIONAL Appointment Type:OT 60 (FT) Appointment Date:12/19/2022 09:15:00 AM Scheduled Provider: Location:.[place]ICAL [place] Appointment Type:PT 45 (FT) Appointment Date:12/20/2022 09:15:00 AM Scheduled Provider: Location:.[place]ICAL [place] Appointment Type:PT [place] 60 (FT) Appointment Date:12/20/2022 11:00:00 AM Scheduled Provider:Camilo Deras DO Location:.[facility] [place] Appointment Type:Pain Management - Follow Up (FT) Appointment Date:12/24/2022 08:00:00 AM Scheduled Provider: Location:.[place]ICAL [place] Appointment Type:PT 45 (FT) Appointment Date:12/24/2022 08:45:00 AM Scheduled Provider: Location:.OCCUPATIONAL Appointment Type:OT 60 (FT) Appointment Date:12/26/2022 10:00:00 AM Scheduled Provider: Location:.OCCUPATIONAL Appointment Type:OT 60 (FT) Appointment Date:12/26/2022 11:00:00 AM Scheduled Provider: Location:.[place]ICAL [place] Appointment Type:PT 60 (FT) Appointment Date:12/31/2022 09:00:00 AM Scheduled Provider: Location:.OCCUPATIONAL Appointment Type:OT 60 (FT) Appointment Date:12/31/2022 10:00:00 AM Scheduled Provider: Location:.[place] Appointment Type:PT 60 (FT) Appointment Date:01/01/2023 09:00:00 AM Scheduled Provider: [place] [place] Appointment Type:URO Nurse Visit Appointment Date:01/02/2023 08:15:00 AM Scheduled Provider: Location:FT.[place]ICAL [place] Appointment Type:PT Re-Eval 45 (FT) Appointment Date:01/02/2023 09:00:00 AM Scheduled Provider: Location:FT.OCCUPATIONAL Appointment Type:OT Re-Eval (FT) Appointment Date:01/07/2023 09:30:00 AM Scheduled Provider: Location:FT.OCCUPATIONAL Appointment Type:OT 60 (FT) Appointment Date:01/09/2023 08:15:00 AM Scheduled Provider: Location:FT.OCCUPATIONAL Appointment Type:OT 60 (FT) Appointment Date:01/14/2023 08:15:00 AM Scheduled Provider: Location:FT.OCCUPATIONAL Appointment Type:OT 60 (FT) Appointment Date:01/16/2023 08:15:00 AM Scheduled Provider: Location:FT.OCCUPATIONAL Appointment Type:OT Re-Eval (FT) [facility] 09-13-2023 NoteHNO ID: [id number] Author: Haile Barrios MD Service: ? Author Type: Physician Type: Progress Notes Filed: 11/03/2022 10:28 PM Note Text: BOTULINUM TOXIN THERAPY Ms. Gutierrez came with her daughter, who is waiting in [facility] Current complaints / history since last visit: most recent botulinum toxin injections on 08/03/22. Botox injections helped with stiffness in hand. She is also currently in aquatherapy and states that it has been beneficial with spasms and strength. Illnesses / hospitalizations since the last visit: ER visit for Márquez catheter change Other updates: No Anticoagulation: on clopidogrel, not stopped for injections Home stretching/exercise routine: Daily stretching PT/OT: currently in aquatherapy BT therapy effective? Yes - stiffness and active function (range of motion) Duration of benefit: 8 weeks Side effects: Unsure (reported migraine) Pain related to the purpose of the visit: Yes LOCATION: Right shoulder and hip PAIN SCALE: 5 on a scale of 0-10 for shoulder, 3/10 for hip PAIN CHARACTER: sharp pain in shoulder, burning in hip - not sure if it's from sitting in wheelchair or less walking. DURATION: (How long have you had the pain?) 2 years for right shoulder pain, hip has been new FREQUENCY: (How often does the pain occur?) right shoulder pain occurs constantly, right hip pain is intermittent AGGRAVATING FACTORS: lying bothers hip ALLEVIATING FACTORS: no known factors with the hip or shoulder Patient Entered Data PROMIS No flowsheet data found. Spasticity NRS 10/31/2022 08/03/2022 12/06/2021 11/14/2021 Spasticity Level - - 8 7 Spasm Scale 3=Spasms occuring more than once per hour 3=Spasms occuring more than once per hour - - Spasm Scale - Trendable Number 3 3 - - Spasm Scale 12/06/2021 11/14/2021 Spasm Frequency Infrequent full spasms occuriung less than once per hour Spasms occurring more than once per hour Spasm Severity Moderate Moderate Global Impression of Change 12/06/2021 11/14/2021 Rehab global impression of change No change Not applicable Nutritional status: appetite is okay , weight is stable, swallowing has been an issue Driving issues: NA Not currently driving Safety concerns regarding living situations and safety at home: No At risk for falling: Yes . Actual falls since last visit: frequency/number 3 due to falling out of wheelchair without locking the wheels and trying to be more independent, 0 injuries. Examination: Strength Right Left Shoulder abduction 0 5 Elbow flexion 1 5 Elbow extension 1 5 Wrist extension 1 5 Foundation Relations Manager strength (kg) 32 Hip flexion 0 5 Knee flexion 0 5 Knee extension 0 5 Plantarflexion 0 5 Dorsiflexion 0 5 Spasticity Right Left Shoulder 4 0 Elbow flexion 1 0 Elbow extension 1 0 Wrist flexion 1 0 Wrist extension 0 0 Finger flexion 3 0 Finger extension 0 0 Hip adduction 0 0 Knee extension 0. 0 Knee flexion 0 0 Plantarflexion 0 0 Modified Jesse Scale 0 - No increase in tone 1 - Slight increase in tone (catch and release at end of ROM) 1+ - Slight increase in tone, manifested by a catch, followed by minimal resistance throughout remainder (less than half of ROM) 2 - Marked increase in tone through most of the ROM, but affected part(s) easily moved 3 - Considerable increase in tone; passive movement difficult 4 - Affected part(s) rigid in flexion or extension 1+/5 right set designer strength. Spasms observed: RUE: no right upper extremity spasms LUE: no left upper extremity spasms RLE: no right lower extremity spasms LLE: no left lower extremity spasms Timed 25 foot walk: N/A Assistance required: wheelchair, other and AFO - right (brace for Right hand) Ambulation Index Score: 9 - Restricted to wheelchair, dependent for transfers UNIVERSAL PROTOCOL / SAFETY CHECKLIST Procedure to be Performed: Botulinum toxin injection Sign In: A Moment of CARE was completed. Personnel directly involved with the procedure wore the appropriate PPE (Personal Protective Equipment). Special equipment: EMG Patient/Surrogate Stated/Verified: PATIENT VERIFIED(optional for EMERGENT procedures): Patient name, Date of , Relevant allergies, and The intended procedure Time Out Communication: Intended patient and procedure match the source documents. Consent documented and matches the intended procedure. No relevant labs, photos, and/or imaging studies were applicable for review. Correct side/site marked and visible. Medications required for procedure verified. No fire risk assessment and interventions applicable. No implant(s) inserted. Sign Out: SIGN OUT (optional for EMERGENT procedures): No specimen collected. All instruments, equipment, possible retained foreign bodies accounted for. Post-procedure follow-up management communicated and Plan of Care Visit completed when applicable. MD Haile Lorenzana MD UNIVERSAL PROTOCOL / SAFETY (more content not included)...[facility]08-01-2023 Hospital Discharge instructions Patient Education 09/18/2022 10:39:40 Neurogenic Bladder Neurogenic Bladder Neurogenic bladder is a bladder control disorder. It is usually caused by problems with the nerves that control the bladder. The brain sends signals through the spinal cord to the muscles in the bladder that start and stop urine flow. With neurogenic bladder, the nerves and muscles do not work together the way they should. This condition may make the bladder overactive, meaning you have trouble holding urine. In other cases, it may make the bladder underactive. This means that you have trouble passing urine. What are the causes? This condition may be caused by nerve damage or a condition that disrupts the signals from your brain to your bladder. Many things can cause these nerve problems, including: A disease that affects the nervous system, such as: ?Alzheimer's disease. ?Cerebral palsy. ?Multiple sclerosis. ?Diabetes. ?Parkinson's disease. Damage to your brain or spinal cord. This can come from: ?Trauma. ?Tumors. ?Infection. ?Surgery. ?Alcohol abuse. ?Stroke. ?A congenital disability that affects the spinal cord. What increases the risk? You are more likely to develop this condition if you have nerve damage or a nerve disorder. What are the signs or symptoms? Signs and symptoms of this condition include: Leaking or gushing urine (incontinence). A sudden, strong urge to pass urine (urgency). Frequent urination during the day and night. Being unable to empty your bladder completely (urinary retention). Frequent urinary tract infections. How is this diagnosed? This condition may be diagnosed based on: Your symptoms and medical history. A physical exam. Records from a bladder diary. You may be asked to keep a record or log of your bladder symptoms andthe times that you urinate. You may also have tests, such as: A urine test to check for infection. A bladder scan after you urinate to see how much urine is left in your bladder. Tests to measure your urine flow and see how well the flow is controlled (urodynamic tests). A procedure that uses a small device with a camera to look through your urethra into your bladder (cystoscopy). A health care provider who specializes in the urinary tract (urologist) may do this test. Imaging tests of your brain or spine, such as MRI or CT scan. How is this treated? Treatment for this condition depends on the cause and the symptoms that you have. Work closely withyour health care provider to find the treatments that will improve your quality of life. Treatment options include: Learning ways to control when you urinate, such as: ?Urinating at scheduled times. ?Training yourself to delay urination. ?Exercises to strengthen the muscles that control urine flow (Kegel exercises). ?Avoiding foods or drinks that make your symptoms worse. Taking medicines to: ?Stimulate an underactive bladder. ?Relax an overactive bladder. ?Treat a urinary tract infection. Learning how to use a thin tube (catheter) to empty your bladder. A catheter is a hollow tube that you pass through your urethra. Procedures to stimulate the nerves that control your bladder. Surgery, if other treatments do not help. Follow these instructions at home: Lifestyle Keep a bladder diary to find out which foods, liquids, or activities make your symptoms worse. Use your bladder diary to schedule bathroom trips. If you are away from home, plan to be near a bathroom when your schedule says you will need one. Limit beverages that stimulate urination. These include soda, coffee, and tea. After urinating, wait a few minutes and try again. Make sure you urinate just before you leave the house and just before you go to bed. Kegel exercises Do Kegel exercises to strengthen the muscles that control the passing of urine. These muscles are the ones you use to try to hold urine when you need to urinate. To do Kegel exercises: 1.Squeeze your pelvic floor muscles tight, as if you are trying to stop the flow of urine. You should feel a tight lift in your rectal area. If you are female, you should also feel a tightness in your vaginal area. Keep your stomach, buttocks, and legs relaxed. 2.Hold the muscles tight for 5 10 seconds. 3.Relax your muscles for the same amount of time. 4.Repeat 10 times. Repeat this exercise 3 times a day or as many times as told by your health care provider. General instructions Take xtfv-[id number] and prescription medicines only as told by your health care provider. Keep all follow-up visits. This is important. Contact a health care provider if: You are having a hard time controlling your symptoms. Your symptoms are getting worse. You have signs of a urinary tract infection. These may include: ?A burning feeling when you urinate. ?Fever or chills. ?Cloudy or bloody urine. Get help right away if: You cannot pass urine. Summary Neurogenic bladder is a bladder control disorder caused by problems with the nerves that control the bladder. This condition may make the bladder overactive or underactive. This condition may be caused by nerve damage or a condition that disrupts the signals from your brain to your bladder. Treatment depends on the cause of your neurogenic bladder and the symptoms that you have. Work closely with your health care provider to find the treatments that will improve your quality of life. This information is not intended to replace advice given to you by your health care provider. Make sure you discuss any questions you have with your health care provider. Document Revised: 10/20/2020 Document Reviewed: 10/20/2020 [employer] Patient Education 2022 [employer] Follow Up Care 07/31/2022 14:37:44 With:CHERELLE ROSS, Yaakov Caicedo, URL Address: [facility] [employer] [address] [address]- When: Unknown [facility] 06-16-2023 NoteHNO ID: [id number] Author: Haile Barrios MD Service: ? Author Type: Physician Type: Progress Notes Filed: 08/03/2022 10:30 PM Note Text: BOTULINUM TOXIN THERAPY Ms. Gutierrez was accompanied by a friend. Current complaints / history since last visit: most recent botulinum toxin injections on 03/28/22. The injections helped for about 3 months. No side effects. She has been getting spasms in the R hand lately. Illnesses / hospitalizations since the last visit: a few ER visits (UTI, blocked suprapubic catheter) Other updates: had suprapubic catheter placement 1 month ago. Anticoagulation: NA Home stretching/exercise routine: stretches on a regular basis, particularly the R hand. PT/OT: none currently. BT therapy effective? Yes - stiffness Duration of benefit: 11 weeks Side effects: No Spasm scale: 3=Spasms occuring more than once per hour Pain related to the purpose of the visit: Yes LOCATION: R shoulder PAIN SCALE: 5 on a scale of 0-10 PAIN CHARACTER: sharp DURATION: (How long have you had the pain?) chronic FREQUENCY: (How often does the pain occur?) occurs constantly Patient Entered Data PROMIS No flowsheet data found. Spasticity NRS 12/06/2021 11/14/2021 Spasticity Level 8 7 Spasm Scale 12/06/2021 11/14/2021 Spasm Frequency Infrequent full spasms occuriung less than once per hour Spasms occurring more than once per hour Spasm Severity Moderate Moderate Global Impression of Change 12/06/2021 11/14/2021 Rehab global impression of change No change Not applicable Nutritional status: appetite good, weight stable, swallowing coughs and chokes on solids (non prior swallow evaluation) Driving issues: NA does not drive Safety concerns regarding living situations and safety at home: No At risk for falling: Yes . Actual falls since last visit: frequency/number 2-3, no injuries. Falls trying to do things on her own. Examination: Strength Right Left Shoulder abduction 0 5 Elbow flexion 0 5 Elbow extension 0 5 Wrist extension 0 5 Hip flexion 0 5 Knee flexion 0 5 Knee extension 0 5 Plantarflexion 0 5 Dorsiflexion 0 5 Spasticity Right Left Shoulder 4 0 Elbow flexion 1 0 Elbow extension 1 0 Wrist flexion 1 0 Wrist extension 0 0 Finger flexion 3 0 Finger extension 0 0 Hip adduction 0 0 Knee extension 0. 0 Knee flexion 0 0 Plantarflexion 0 0 Modified Jesse Scale 0 - No increase in tone 1 - Slight increase in tone (catch and release at end of ROM) 1+ - Slight increase in tone, manifested by a catch, followed by minimal resistance throughout remainder (less than half of ROM) 2 - Marked increase in tone through most of the ROM, but affected part(s) easily moved 3 - Considerable increase in tone; passive movement difficult 4 - Affected part(s) rigid in flexion or extension 1+/5 right set designer strength. Spasms observed: RUE: no right upper extremity spasms LUE: no left upper extremity spasms RLE: no right lower extremity spasms unsustained ankle clonus LLE: no left lower extremity spasms Timed 25 foot walk: N/A Assistance required: wheelchair and other (brace for Right hand) Ambulation Index Score: 9 - Restricted to wheelchair, dependent for transfers UNIVERSAL PROTOCOL / SAFETY CHECKLIST Procedure to be Performed: botulinum toxin injections Sign In: A Moment of CARE was completed. Personnel directly involved with the procedure wore the appropriate PPE (Personal Protective Equipment). Special equipment: EMG Patient/Surrogate Stated/Verified: PATIENT VERIFIED(optional for EMERGENT procedures): Patient name, Date of , Relevant allergies, and The intended procedure Time Out Communication: Intended patient and procedure match the source documents. Consent documented and matches the intended procedure. No relevant labs, photos, and/or imaging studies were applicable for review. Correct side/site marked and visible. Medications required for procedure verified. No fire risk assessment and interventions applicable. No implant(s) inserted. Sign Out: SIGN OUT (optional for EMERGENT procedures): No specimen collected. All instruments, equipment, possible retained foreign bodies accounted for. Post-procedure follow-up management communicated and Plan of Care Visit completed when applicable. Haile Barrios MD UNIVERSAL PROTOCOL / SAFETY CHECKLIST The risks, benefits and alternatives of the procedure were explained. Written Consent Obtained: yes - 11/14/2021 Clinician(s) performing the injections: Haile Barrios MD Incident Commander: Tiffany Thomas LPN The patient was positioned seated in wheelchair. Brand of toxin injected: Botox. After skin preparation with alcohol, a total dose of 300 units were injected as follows: Muscle Limb/Side Dose Guidance Comments Pectoralis RUE 100 units EMG 2 sites Biceps RUE 25 units EMG 2 sites Triceps RUE 25 units EMG 3 sites FCR RUE 50 units EMG 1 sites FDP RUE 50 (more content not included)...[facility]06-16-2023 Instructions* Patient Instructions* Haile Barrios MD - 08/03/2022 11:32 AM EDT You have received botulinum toxin injections today. The skin around the site of injections should be monitored for a couple of days. If redness or swelling occur, the skin should be examined by a health care transition manager to rule out infection. Please contact our office via [employer] or by phone at [phone] in 2 weeks to report on the effects of the injections, or any time with any questions or concerns. Please note that your next injections should not be scheduled less than 90 days from today. If your health insurance changes before the next injections, please contact our office at [phone] as soon as possible so we can submit a new pre- authorization if needed. Please note that we may not be able to perform the injections if your insurance changes and the treatment is not pre-authorized. Haile Barrios MD [facility] History of Present illness Narrative* Haile Barrios MD - 08/03/2022 11:30 AM EDT BOTULINUM TOXIN THERAPY Ms. Gutierrez was accompanied by a friend. Current complaints / history since last visit: most recent botulinum toxin injections on 03/28/22. The injections helped for about 3 months. No side effects. She has been getting spasms in the R hand lately. Illnesses / hospitalizations since the last visit: a few ER visits (UTI, blocked suprapubic catheter) Other updates: had suprapubic catheter placement 1 month ago. Anticoagulation: NA Home stretching/exercise routine: stretches on a regular basis, particularly the R hand. PT/OT: none currently. BT therapy effective? Yes - stiffness Duration of benefit: 11 weeks Side effects: No Spasm scale: 3=Spasms occuring more than once per hour Pain related to the purpose of the visit: Yes LOCATION: R shoulder PAIN SCALE: 5 on a scale of 0-10 PAIN CHARACTER: sharp DURATION: (How long have you had the pain?) chronic FREQUENCY: (How often does the pain occur?) occurs constantly Patient Entered Data PROMIS No flowsheet data found. Spasticity NRS 12/06/2021 11/14/2021 Spasticity Level 8 7 Spasm Scale 12/06/2021 11/14/2021 Spasm Frequency Infrequent full spasms occuriung less than once per hour Spasms occurring more thanonce per hour Spasm Severity Moderate Moderate Global Impression of Change 12/06/2021 11/14/2021 Rehab global impression of change No change Not applicable Nutritional status: appetite good, weight stable, swallowing coughs and chokes on solids (non priorswallow evaluation) Driving issues: NA does not drive Safety concerns regarding living situations and safety at home: No At risk for falling: Yes . Actual falls since last visit: frequency/number 2-3, no injuries. Falls trying to do things on her own. Examination: Strength Right Left Shoulder abduction 0 5 Elbow flexion 0 5 Elbow extension 0 5 Wrist extension 0 5 Hip flexion 0 5 Knee flexion 0 5 Knee extension 0 5 Plantarflexion 0 5 Dorsiflexion 0 5 Spasticity Right Left Shoulder 4 0 Elbow flexion 1 0 Elbow extension 1 0 Wrist flexion 1 0 Wrist extension 0 0 Finger flexion 3 0 Finger extension 0 0 Hip adduction 0 0 Knee extension 0. 0 Knee flexion 0 0 Plantarflexion 0 0 Modified Jesse Scale 0 - No increase in tone 1 - Slight increase in tone (catch and release at end of ROM) 1+ - Slight increase in tone, manifested by a catch, followed by minimal resistance throughout remainder (less than half of ROM) 2 - Marked increase in tone through most of the ROM, but affected part(s) easily moved 3 - Considerable increase in tone; passive movement difficult 4 - Affected part(s) rigid in flexion or extension 1+/5 right set designer strength. Spasms observed: RUE: no right upper extremity spasms LUE: no left upper extremity spasms RLE: no right lower extremity spasms unsustained ankle clonus LLE: no left lower extremity spasms Timed 25 foot walk: N/A Assistance required: wheelchair and other (brace for Right hand) Ambulation Index Score: 9 - Restricted to wheelchair, dependent for transfers UNIVERSAL PROTOCOL / SAFETY CHECKLIST Procedure to be Performed: botulinum toxin injections Sign In: A Moment of CARE was completed. Personnel directly involved with the procedure wore the appropriate PPE (Personal Protective Equipment). Special equipment: EMG Patient/Surrogate Stated/Verified: PATIENT VERIFIED(optional for EMERGENT procedures): Patient name, Date of , Relevant allergies, and The intended procedure Time Out Communication: Intended patient and procedure match the source documents. Consent documented and matches the intended procedure. No relevant labs, photos, and/or imaging studies were applicable for review. Correct side/site marked and visible. Medications required for procedure verified. No fire risk assessment and interventions applicable. No implant(s) inserted. Sign Out: SIGN OUT (optional for EMERGENT procedures): No specimen collected. All instruments, equipment, possible retained foreign bodies accounted for. Post-procedure follow-up management communicated and Plan of Care Visit completed when applicable. Haile Barrios MD UNIVERSAL PROTOCOL / SAFETY CHECKLIST The risks, benefits and alternatives of the procedure were explained. Written Consent Obtained: yes - 11/14/2021 Clinician(s) performing the injections: Haile Barrios MD Incident Commander: Tiffany Thomas LPN The patient was positioned seated in wheelchair. Brand of toxin injected: Botox. After skin preparation with alcohol, a total dose of 300 units were injected as follows: Muscle Limb/Side Dose Guidance Comments Pectoralis RUE 100 units EMG 2 sites Biceps RUE 25 units EMG 2 sites Triceps RUE 25 units EMG 3 sites FCR RUE 50 units EMG 1 sites FDP RUE 50 units EMG 1 sites FDS RUE 50 units EMG 1 sites Total Dose: 300 Dilution: 100 units / 1 ml LOT #: [id number] Expiration Date: Month: 4 Year: 25 0 units discarded The injections were well tolerated. Minimal bleeding occurred at the injection sites. Assessment: (G81.10) Spastic hemiparesis affecting dominant side (HCC) (primary encounter diagnosis) (G37.3) Acute transverse myelitis (HCC) Ms. Gutierrez presents with right spastic hemiplegia residual from an episode of transverse myelitis. Shereports benefit from the most recent botulinum toxin injections, without side effects. I discussed treatment options and Ms. Gutierrez agreed to keep the total dose of Botox unchanged, while modifying the muscle distribution in order to increase the dose injected into the pectoralis (severe stiffness in shoulder muscles) and finger flexors (increased spasms in the hand). I performed the injections without immediate complications. Other issues discussed with Ms. Gutierrez include: - severe painful ROM limitation in the R shoulder. I suspect a combination of spasticity and MSK issues. Ms. Gutierrez agreed to get an X-ray of the R shoulder. - dysphagia that is not improving. Ms. Gutierrez agreed to be referred to speech therapy for a clinical swallowing evaluation. Plan: 1 - Repeat injections in 3 months, 300 to 400 units. Injections performed in the wheelchair. 2 - Start speech therapy for dysphagia. Prescription provided. 3 - X-ray of the R shoulder. Prescription provided. Time spent with patient: 45 mn. Haile Barrios MD [facility] Evaluation + Plan note Future Appointments Appointment Date:08/01/2022 01:15:00 PM Scheduled Provider: Location:FT.OCCUPATIONAL Appointment Type:OT 60 (FT) Appointment Date:08/01/2022 02:30:00 PM Scheduled Provider: Location:.PHYSICAL [place] Appointment Type:PT 60 (FT) Appointment Date:08/06/2022 10:15:00 AM Scheduled Provider: Location:FT.OCCUPATIONAL Appointment Type:OT 60 (FT) Appointment Date:08/06/2022 11:15:00 AM Scheduled Provider: Location:[facility].PHYSICAL [place] Appointment Type:PT 60 (FT) Appointment Date:08/08/2022 10:00:00 AM Scheduled Provider: Location:FT.OCCUPATIONAL Appointment Type:OT 60 (FT) Appointment Date:08/08/2022 11:15:00 AM Scheduled Provider: Location:[facility]PHYSICAL [place] Appointment Type:PT 60 (FT) Appointment Date:08/13/2022 09:30:00 AM Scheduled Provider: Location:FT.OCCUPATIONAL Appointment Type:OT 60 (FT) Appointment Date:08/13/2022 10:45:00 AM Scheduled Provider: Location:[facility]PHYSICAL [place] Appointment Type:PT 60 (FT) Appointment Date:08/15/2022 12:30:00 PM Scheduled Provider: Location:FT.OCCUPATIONAL Appointment Type:OT Re-Eval (FT) Appointment Date:08/15/2022 02:00:00 PM Scheduled Provider: Location:[facility]PHYSICAL [place] Appointment Type:PT Re-Eval 60 (FT) Appointment Date:08/28/2022 09:30:00 AM Scheduled Provider:Yaakov GREENWOOD MD Location:[facility] access hospital Appointment Type:URO Office Visit [facility] 05-16-2023 Hospital Discharge instructions Follow Up Care 07/03/2022 14:17:56 With:Yaakov GREENWOOD MD, URL Address: [address] [place] [address] [place] [id number]- When: Unknown [facility] 05-16-2023 Hospital Discharge instructions Patient Education 07/03/2022 13:59:39 Suprapubic Catheter Home Guide Suprapubic Catheter Home Guide A suprapubic catheter is a flexible tube that is used to drain urine from the bladder into a collection bag outside the body. The catheter is inserted into the bladder through a small opening in the lower abdomen, above the pubic bone (suprapubic area) and a few inches below your belly button (navel). A tiny balloon filled with germ-free (sterile) water helps to keep the catheter in place. The collection bag must be emptied at least once a day and cleaned at least every other day. The collection bag can be put beside your bed at night and attached to your leg during the day. You may have a large collection bag to use at night and a smaller one to use during the day. Your suprapubic catheter may need to be changed every 4 6 weeks, or as often as recommended by yourhealth care provider. Healing of the tract where the catheter is placed can take 6 weeks to 6 months. During that time, your health care provider may change your catheter. Once the tract is well healed, you or a caregiver will change your suprapubic catheter at home. What are the risks? This catheter is safe to use. However, problems can occur, including: Blocked urine flow. This can occur if the catheter stops working, or if you have a blood clot in your bladder or in the catheter. Irritation of the skin around the catheter. Infection. This can happen if bacteria gets into your bladder. Supplies needed: Two pairs of sterile gloves. Paper towels. Catheter. Two syringes. Sterile water. Sterile cleaning solution. Lubricant. Collection bags. How to change the catheter 1.Drink plenty of fluids during the hours before you change the catheter. 2.Wash your hands with soap and water. If soap and water are not available, use hand behavioral psychologist. 3.Draw up sterile water into a syringe to have ready to fill the new catheter balloon. The amount will depend on the size of the balloon. 4.Have all of your supplies ready and close to you on a paper towel. 5.Lie on your back, sitting slightly upright so that you can see the catheter and opening. 6.Put on sterile gloves. 7.Clean the skin around the catheter opening using the sterile cleaning solution. 8.Remove the water from the balloon in the catheter using a syringe. 9.Slowly remove the catheter. If the catheter seems stuck, or if you have difficulty removing it: Do not pull on it. Call your health care provider right away. 10.Place the old catheter on a paper towel to discard later. 11.Take off the used gloves, and put on a new pair. 12.Put lubricant on the end of the new catheter that will go into your bladder. 13.Clean the skin around the catheter opening using the sterile cleaning solution. 14.Gently slide the catheter through the opening in your abdomen and into the tract that leads to your bladder. 15.Wait for some urine to start flowing through the catheter. 16.When urine starts to flow through the catheter, attach the collection bag to the end of the catheter. Make sure the connection is tight. 17.Use a syringe to fill the catheter balloon with sterile water. Fill to the amount directed by your health care provider. 18.Remove the gloves and wash your hands with soap and water. How to care for the skin around the catheter Follow your health care provider's instructions on caring for your skin. Use a clean washcloth and soapy water to clean the skin around your catheter every day. Pat the area dry with a clean paper towel. Do not pull on the catheter. Do not use ointment or lotion on this area, unless told by your health care provider. Check the skin around the catheter every day for signs of infection. Check for: ?Redness, swelling, or pain. ?Fluid or blood. ?Warmth. ?Pus or a bad smell. How to empty and clean the collection bag Empty the large collection bag every 8 hours. Empty the small collection bag when it is about ? full. Clean the collection bag every 2 3 days, or as often as told by your health care provider. To do this: 1.Wash your hands with soap and water. If soap and water are not available, use hand behavioral psychologist. 2.Disconnect the bag from the catheter and immediately attach a new bag to the catheter. 3.Hold the used bag over the toilet or another container. 4.Turn the valve (spigot) at the bottom of the bag to empty the urine. Empty the used bag completely. Do not touch the opening of the spigot. Do not let the opening touch the toilet or container. 5.Close the spigot tightly when the bag is empty. 6.Clean the used bag in one of the following methods: According to the display artist's instructions. As told by your health care provider. 7.Let the bag dry completely. Put it in a clean plastic bag before storing it. General tips Always wash your hands before and after caring for your catheter and collection bag. Use a mild, fragrance-free soap. If soap and water are not available, use hand behavioral psychologist. Clean the outside of the catheter with soap and water as often as told by your health care provider. Always make sure there are no twists or kinks in the catheter tube. Always make sure there are no leaks in the catheter or collection bag. Always wear the leg bag below your knee. Make sure the overnight drainage bag is always lower than the level of your bladder, but do not letit touch the floor. Before you go to sleep, hang the bag inside a wastebasket that is covered by a clean plastic bag. Drink enough fluid to keep your urine pale yellow. Do not take baths, swim, or use a hot tub until your health care provider approves. Ask your healthcare provider if you may take showers. Contact a carrol care provider if: You leak urine. You have redness, swelling, or pain around your catheter. You have fluid or blood coming from your catheter opening. Your catheter opening feels warm to the touch. You have pus or a bad smell coming from your catheter opening. You have a fever or chills. Your urine flow slows down. Your urine becomes cloudy or smelly. Get help right away if: Your catheter comes out. You have: ?Nausea. ?Back pain. ?Difficulty changing your catheter. ?Blood in your urine. ?No urine flow for 1 hour. Summary A suprapubic catheter is a flexible tube that is used to drain urine from the bladder into a collection bag outside the body. Your suprapubic catheter may need to be changed every 4 6 weeks, or as recommended by your health care provider. Follow instructions on how to change the catheter and how to empty and clean the collection bag. Always wash your hands before and after caring for your catheter and collection bag. Drink enough fluid to keep your urine pale yellow. Get help right away if you have difficulty changing your catheter or if there is blood in your urine. This information is not intended to replace advice given to you by your health care provider. Make sure you discuss any questions you have with your health care provider. Document Revised: 04/14/2020 Document Reviewed: 03/11/2019 [employer] Patient Education 2022 [employer]. Follow Up Care 07/03/2022 11:58:09 With:CHERELLE ROSS, Yaakov Caicedo, URL Address: [facility] [employer] [facility] [address] [place] [address]- When: Unknown [facility] [id number] Evaluation + Plan note Future Appointments Appointment Date:07/05/2022 12:15:00 PM Scheduled Provider: Location:FT.OCCUPATIONAL Appointment Type:OT 60 (FT) Appointment Date:07/05/2022 01:30:00 PM Scheduled Provider: Location:[facility]ICAL [place] Appointment Type:PT 60 (FT) Appointment Date:07/11/2022 08:30:00 AM Scheduled Provider: Location:FT.OCCUPATIONAL Appointment Type:OT Fauzia-Santhosh (FT) Appointment Date:07/11/2022 09:30:00 AM Scheduled Provider: Location:[facility] [place] Appointment Type:PT 60 (FT) Appointment Date:07/18/2022 01:00:00 PM Scheduled Provider: Location:FT.OCCUPATIONAL Appointment Type:OT 60 (FT) Appointment Date:07/18/2022 02:00:00 PM Scheduled Provider: Location:[facility] [place] Appointment Type:PT Re-Eval 60 (FT) Appointment Date:07/20/2022 11:00:00 AM Scheduled Provider: Location:FT.OCCUPATIONAL Appointment Type:OT 60 (FT) Appointment Date:07/23/2022 10:15:00 AM Scheduled Provider: Location:FT.OCCUPATIONAL Appointment Type:OT 60 (FT) Appointment Date:07/23/2022 11:15:00 AM Scheduled Provider: Location:[facility]ICAL [place] Appointment Type:PT 60 (FT) Appointment Date:07/25/2022 10:00:00 AM Scheduled Provider: Location:FT.OCCUPATIONAL Appointment Type:OT 60 (FT) Appointment Date:07/25/2022 11:15:00 AM Scheduled Provider: Location:[facility] [place] Appointment Type:PT 60 (FT) Appointment Date:07/30/2022 12:45:00 PM Scheduled Provider: Location:FT.OCCUPATIONAL Appointment Type:OT 60 (FT) Appointment Date:07/30/2022 02:00:00 PM Scheduled Provider: Location:[facility] [place] Appointment Type:PT 60 (FT) Appointment Date:08/01/2022 01:15:00 PM Scheduled Provider: Location:FT.OCCUPATIONAL Appointment Type:OT 60 (FT) Appointment Date:08/01/2022 02:30:00 PM Scheduled Provider: Location:[facility] [place] Appointment Type:PT 60 (FT) Appointment Date:08/06/2022 10:15:00 AM Scheduled Provider: Location:FT.OCCUPATIONAL Appointment Type:OT 60 (FT) Appointment Date:08/06/2022 11:15:00 AM Scheduled Provider: Location:[facility] [place] Appointment Type:PT 60 (FT) Appointment Date:08/08/2022 10:00:00 AM Scheduled Provider: Location:FT.OCCUPATIONAL Appointment Type:OT 60 (FT) Appointment Date:08/08/2022 11:15:00 AM Scheduled Provider: Location:[facility] [place] Appointment Type:PT 60 (FT) Appointment Date:08/13/2022 09:30:00 AM Scheduled Provider: Location:FT.OCCUPATIONAL Appointment Type:OT 60 (FT) Appointment Date:08/13/2022 10:45:00 AM Scheduled Provider: Location:[facility]ICAL [place] Appointment Type:PT 60 (FT) Appointment Date:08/15/2022 12:30:00 PM Scheduled Provider: Location:FT.OCCUPATIONAL Appointment Type:OT Re-Eval (FT) Appointment Date:08/15/2022 02:00:00 PM Scheduled Provider: Location:[facility]ICAL [place] Appointment Type:PT Re-Eval 60 (FT) [facility] 2023 Evaluation + Plan note Future Appointments Appointment Date:07/05/2022 12:15:00 PM Scheduled Provider: Location:FT.OCCUPATIONAL Appointment Type:OT 60 (FT) Appointment Date:07/05/2022 01:30:00 PM Scheduled Provider: Location:FT[facility]ICAL [place] Appointment Type:PT 60 (FT) Appointment Date:07/11/2022 08:30:00 AM Scheduled Provider: Location:FT.OCCUPATIONAL Appointment Type:OT Re-Eval (FT) Appointment Date:07/11/2022 09:30:00 AM Scheduled Provider: Location:FT[facility]ICAL [place] Appointment Type:PT 60 (FT) Appointment Date:07/18/2022 01:00:00 PM Scheduled Provider: Location:FT.OCCUPATIONAL Appointment Type:OT 60 (FT) Appointment Date:07/18/2022 02:00:00 PM Scheduled Provider: Location:FT[facility]ICAL [place] Appointment Type:PT Re-Eval 60 (FT) Appointment Date:07/20/2022 11:00:00 AM Scheduled Provider: Location:FT.OCCUPATIONAL Appointment Type:OT 60 (FT) Appointment Date:07/23/2022 10:15:00 AM Scheduled Provider: Location:FT.OCCUPATIONAL Appointment Type:OT 60 (FT) Appointment Date:07/23/2022 11:15:00 AM Scheduled Provider: Location:FT[facility]ICAL [place] Appointment Type:PT 60 (FT) Appointment Date:07/25/2022 10:00:00 AM Scheduled Provider: Location:FT.OCCUPATIONAL Appointment Type:OT 60 (FT) Appointment Date:07/25/2022 11:15:00 AM Scheduled Provider: Location:FT[facility]ICAL [place] Appointment Type:PT 60 (FT) Appointment Date:07/30/2022 12:45:00 PM Scheduled Provider: Location:FT.OCCUPATIONAL Appointment Type:OT 60 (FT) Appointment Date:07/30/2022 02:00:00 PM Scheduled Provider: Location:FT[facility]ICAL [place] Appointment Type:PT 60 (FT) Appointment Date:07/31/2022 01:45:00 PM Scheduled Provider:Yaakov GREENWOOD MD [facility] Appointment Type:URO Office Visit Appointment Date:08/01/2022 01:15:00 PM Scheduled Provider: Location:.OCCUPATIONAL Appointment Type:OT 60 (FT) Appointment Date:08/01/2022 02:30:00 PM Scheduled Provider: Location:.[place]ICAL [place] Appointment Type:PT 60 (FT) Appointment Date:08/06/2022 10:15:00 AM Scheduled Provider: Location:.OCCUPATIONAL Appointment Type:OT 60 (FT) Appointment Date:08/06/2022 11:15:00 AM Scheduled Provider: Location:.[place]ICAL [place] Appointment Type:PT 60 (FT) Appointment Date:08/08/2022 10:00:00 AM Scheduled Provider: Location:.OCCUPATIONAL Appointment Type:OT 60 (FT) Appointment Date:08/08/2022 11:15:00 AM Scheduled Provider: Location:.[place]ICAL [place] Appointment Type:PT 60 (FT) Appointment Date:08/13/2022 09:30:00 AM Scheduled Provider: Location:.OCCUPATIONAL Appointment Type:OT 60 (FT) Appointment Date:08/13/2022 10:45:00 AM Scheduled Provider: Location:.[place]ICAL [place] Appointment Type:PT 60 (FT) Appointment Date:08/15/2022 12:30:00 PM Scheduled Provider: Location:.OCCUPATIONAL Appointment Type:OT Re-Eval (FT) Appointment Date:08/15/2022 02:00:00 PM Scheduled Provider: Location:.[place]ICAL [place] Appointment Type:PT Re-Eval 60 (FT) [facility] 04-24-2023 Hospital Discharge instructions Patient Education 06/11/2022 09:32:39 Neurogenic Bladder Neurogenic Bladder Neurogenic bladder is a bladder control disorder. It is usually caused by problems with the nerves that control the bladder. The brain sends signals through the spinal cord to the muscles in the bladder that start and stop urine flow. With neurogenic bladder, the nerves and muscles do not work together the way they should. This condition may make the bladder overactive, meaning you have trouble holding urine. In other cases, it may make the bladder underactive. This means that you have trouble passing urine. What are the causes? This condition may be caused by nerve damage or a condition that disrupts the signals from your brain to your bladder. Many things can cause these nerve problems, including: A disease that affects the nervous system, such as: ?Alzheimer's disease. ?Cerebral palsy. ?Multiple sclerosis. ?Diabetes. ?Parkinson's disease. Damage to your brain or spinal cord. This can come from: ?Trauma. ?Tumors. ?Infection. ?Surgery. ?Alcohol abuse. ?Stroke. ?A congenital disability that affects the spinal cord. What increases the risk? You are more likely to develop this condition if you have nerve damage or a nerve disorder. What are the signs or symptoms? Signs and symptoms of this condition include: Leaking or gushing urine (incontinence). A sudden, strong urge to pass urine (urgency). Frequent urination during the day and night. Being unable to empty your bladder completely (urinary retention). Frequent urinary tract infections. How is this diagnosed? This condition may be diagnosed based on: Your symptoms and medical history. A physical exam. Records from a bladder diary. You may be asked to keep a record or log of your bladder symptoms andthe times that you urinate. You may also have tests, such as: A urine test to check for infection. A bladder scan after you urinate to see how much urine is left in your bladder. Tests to measure your urine flow and see how well the flow is controlled (urodynamic tests). A procedure that uses a small device with a camera to look through your urethra into your bladder (cystoscopy). A health care provider who specializes in the urinary tract (urologist) may do this test. Imaging tests of your brain or spine, such as MRI or CT scan. How is this treated? Treatment for this condition depends on the cause and the symptoms that you have. Work closely withyour health care provider to find the treatments that will improve your quality of life. Treatment options include: Learning ways to control when you urinate, such as: ?Urinating at scheduled times. ?Training yourself to delay urination. ?Exercises to strengthen the muscles that control urine flow (Kegel exercises). ?Avoiding foods or drinks that make your symptoms worse. Taking medicines to: ?Stimulate an underactive bladder. ?Relax an overactive bladder. ?Treat a urinary tract infection. Learning how to use a thin tube (catheter) to empty your bladder. A catheter is a hollow tube that you pass through your urethra. Procedures to stimulate the nerves that control your bladder. Surgery, if other treatments do not help. Follow these instructions at home: Lifestyle Keep a bladder diary to find out which foods, liquids, or activities make your symptoms worse. Use your bladder diary to schedule bathroom trips. If you are away from home, plan to be near a bathroom when your schedule says you will need one. Limit beverages that stimulate urination. These include soda, coffee, and tea. After urinating, wait a few minutes and try again. Make sure you urinate just before you leave the house and just before you go to bed. Kegel exercises Do Kegel exercises to strengthen the muscles that control the passing of urine. These muscles are the ones you use to try to hold urine when you need to urinate. To do Kegel exercises: 1.Squeeze your pelvic floor muscles tight, as if you are trying to stop the flow of urine. You should feel a tight lift in your rectal area. If you are female, you should also feel a tightness in your vaginal area. Keep your stomach, buttocks, and legs relaxed. 2.Hold the muscles tight for 5 10 seconds. 3.Relax your muscles for the same amount of time. 4.Repeat 10 times. Repeat this exercise 3 times a day or as many times as told by your health care provider. General instructions Take [id number] and prescription medicines only as told by your health care provider. Keep all follow-up visits. This is important. Contact a health care provider if: You are having a hard time controlling your symptoms. Your symptoms are getting worse. You have signs of a urinary tract infection. These may include: ?A burning feeling when you urinate. ?Fever or chills. ?Cloudy or bloody urine. Get help right away if: You cannot pass urine. Summary Neurogenic bladder is a bladder control disorder caused by problems with the nerves that control the bladder. This condition may make the bladder overactive or underactive. This condition may be caused by nerve damage or a condition that disrupts the signals from your brain to your bladder. Treatment depends on the cause of your neurogenic bladder and the symptoms that you have. Work closely with your health care provider to find the treatments that will improve your quality of life. This information is not intended to replace advice given to you by your health care provider. Make sure you discuss any questions you have with your health care provider. Document Revised: 10/20/2020 Document Reviewed: 10/20/2020 [employer] Patient Education 2022 [employer]. Follow Up Care 04/18/2022 14:11:28 With:CHERELLE ROSS, Yaakov Caicedo, URL Address: [address] [place] [id number]- When: Unknown [facility] 04-12-2023 Evaluation + Plan noteExtracted from: Title:Clinical Document Author:Lonny Quintero MD Date:05/30/22 Chief complaint: Multifocal pain History of present illness: This is a 47-year-old female here for a chief complaint of multifocal pain. The patient rates the pain as a a 5 out of 10. She reports since her last visit her pain issues are more or less stable. She still has a lot of spasticity in the right shoulder. She is getting Botox injections with neurology in [place]. They also put her on methocarbamol. She is using Lyrica, baclofen 10 mg twice a day, and tramadol sporadically for months. She is using the tramadol about once a week. She states is helpful. She does not want to go on anything stronger. She has been able to gain a little bit of strength in her right hand. She can now pinch with the thumb and index finger and can move the other fingers a little bit. She denies new numbness or weakness. She will hopefully go for a suprapubic catheter in the near future. Her bladder issues are unchanged. The patient denies additional neurologic symptoms or issues with bladder or bowel control. The patient's past medical, surgical, and social history along with medications and allergies were reviewed. Review of systems was done on 10 systems Physical examination: General: Pleasant white female in no acute distress. Patient appears well- nourished. Vital signs stable Head exam: Head is normocephalic and external ears normal Neck exam: No tenderness Cardiovascular exam: No signs of poor perfusion and no peripheral edema Respiratory exam: Breathing is unlabored and there is no wheezing present Abdomen exam: Abdomen soft and nondistended Back exam: No tenderness Musculoskeletal exam: Weakness of the right arm and leg. The strength in her index finger and thumb on the right side though is now up to 4-5. Neurologic exam: Sensation intact. Mild allodynia in the left foot. Psych exam: Affect is appropriate. Alert and oriented Skin exam: No lesions Assessment: The patient's signs and symptoms are consistent with a combination of reflux sympathetic dystrophy of the left lower extremity along with transverse myelitis.. We reviewed the patient's imaging. Oswestry disability index score was 36 out of 50 OARRS report was reviewed and was appropriate Narcan offered and declined Plan: I addressed options with her. I will increase the Lyrica to 200 mg 3 times a day. I will also refill the tramadol. I think it is very reasonable given what she is got going on. I am going to check and make sure that her neurologist knows that she is on baclofen as well. Given the uniqueness of her situation baclofen, methocarbamol, and Botox injections might be reasonable for her spasticity in the shoulder but I just want to make sure that everybody is on the same page.. We discussed the potential risks and benefits of this plan and the patient was in agreement to proceed. I will see the patient for follow-up in 6 months or sooner if needed for repeat evaluation. Future Appointments Appointment Date:05/31/2022 09:00:00 AM Scheduled Provider: Location:Critical access hospital Appointment Type:URO Nurse Visit Appointment Date:05/31/2022 10:15:00 AM Scheduled Provider: [facility] Type:PT 60 (FT) Appointment Date:06/04/2022 10:00:00 AM Scheduled Provider: Location:.OCCUPATIONAL Appointment Type:OT 60 (FT) Appointment Date:06/06/2022 08:45:00 AM Scheduled Provider: Location:.PH[place]ICAL [place] Appointment Type:PT 60 (FT) Appointment Date:06/06/2022 10:00:00 AM Scheduled Provider: Location:.OCCUPATIONAL Appointment Type:OT 60 () Appointment Date:06/11/2022 09:15:00 AM Scheduled Provider:Yaakov GREENWOOD MD Location:Critical access hospital Appointment Type:URO Office Visit Appointment Date:06/11/2022 10:00:00 AM Scheduled Provider: Location:FT.OCCUPATIONAL Appointment Type:OT 60 (FT) Appointment Date:06/11/2022 11:30:00 AM Scheduled Provider: Location:FT.[place]ICAL [place] Appointment Type:PT 60 (FT) Appointment Date:06/13/2022 08:45:00 AM Scheduled Provider: Location:FT[facility] [place] Appointment Type:PT 60 (FT) Appointment Date:06/13/2022 10:00:00 AM Scheduled Provider: Location:FT.OCCUPATIONAL Appointment Type:OT Re-Eval (FT) Appointment Date:06/18/2022 02:00:00 PM Scheduled Provider: Location:FT[facility]ICAL [place] Appointment Type:PT 60 (FT) Appointment Date:06/21/2022 09:00:00 AM Scheduled Provider: Location:FT[facility]ICAL [place] Appointment Type:PT Re-Eval 60 (FT) [facility]03-01-2023 Evaluation + Plan note Future Appointments Appointment Date:05/02/2022 10:15:00 AM Scheduled Provider: Location:FT.OCCUPATIONAL Appointment Type:OT 60 (FT) Appointment Date:05/02/2022 11:15:00 AM Scheduled Provider: Location:.[place] Appointment Type:PT 60 (FT) Appointment Date:05/14/2022 09:30:00 AM Scheduled Provider: Location:FT.OCCUPATIONAL Appointment Type:OT 60 (FT) Appointment Date:05/14/2022 10:30:00 AM Scheduled Provider: [place]:.[place] Appointment Type:PT Re-Eval 60 (FT) Appointment Date:05/16/2022 10:00:00 AM Scheduled Provider: Location:FT.OCCUPATIONAL Appointment Type:OT Re-Eval (FT) Appointment Date:05/23/2022 10:00:00 AM Scheduled Provider: Location:.OCCUPATIONAL Appointment Type:OT 60 (FT) Appointment Date:05/28/2022 10:00:00 AM Scheduled Provider: Location:FT.OCCUPATIONAL Appointment Type:OT 60 (FT) Appointment Date:05/29/2022 09:00:00 AM Scheduled Provider: [place] [place] Appointment Type:URO Nurse Visit Appointment Date:05/30/2022 10:00:00 AM Scheduled Provider: Location:FT.OCCUPATIONAL Appointment Type:OT 60 (FT) Appointment Date:05/30/2022 02:15:00 PM Scheduled Provider:Remi Qunitero MD Location[facility] Appointment Type:Pain Management - Follow Up (FT) Appointment Date:06/04/2022 10:00:00 AM Scheduled Provider: Location:.OCCUPATIONAL Appointment Type:OT 60 (FT) Appointment Date:06/06/2022 10:00:00 AM Scheduled Provider: Location:.OCCUPATIONAL Appointment Type:OT 60 (FT) Appointment Date:06/11/2022 09:15:00 AM Scheduled Provider:Yaakov GREENWOOD MD Location:Critical access hospital Appointment Type:URO Office Visit Appointment Date:06/11/2022 10:00:00 AM Scheduled Provider: Location:.OCCUPATIONAL Appointment Type:OT 60 (FT) Appointment Date:06/13/2022 10:00:00 AM Scheduled Provider: Location:.OCCUPATIONAL Appointment Type:OT Re-Eval (FT) [facility] 02-08-2023 NoteHNO ID: [id number] Author: Marilia Siu PA-C Service: ? Author Type: Physician Incident Commander Type: Progress Notes Filed: 03/28/2022 12:29 PM Note Text: BOTULINUM TOXIN THERAPY Patient accompanied by : spouse Current complaints / history since last visit: most recent botulinum toxin injections on 11/14/2021. Illnesses / hospitalizations since the last visit: none Other updates: none Anticoagulation: none Home stretching/exercise routine: currently in PT BT therapy effective? Yes - stiffness Duration of benefit: 6 weeks Side effects: No Pain related to the purpose of the visit: Yes LOCATION: right shoulder PAIN CHARACTER: stiff Patient Entered Data PROMIS No flowsheet data found. Spasticity NRS 12/06/2021 11/14/2021 Spasticity Level 8 7 Spasm Scale 12/06/2021 11/14/2021 Spasm Frequency Infrequent full spasms occuriung less than once per hour Spasms occurring more than once per hour Spasm Severity Moderate Moderate Global Impression of Change 12/06/2021 11/14/2021 Rehab global impression of change No change Not applicable Nutritional status: swallowing ongoing choking on solids Driving issues: NA she's not able to drive due to low vision Safety concerns regarding living situations and safety at home: No At risk for falling: Yes . Actual falls since last visit: frequency/number 'too many to count', 0 injuries; falls are typically related to falling out of her wheelchair when leaning over too far Examination: Strength Right Left Shoulder abduction 0 5 Elbow flexion 0 5 Elbow extension 0 5 Wrist extension 0 5 Hip flexion 0 5 Knee flexion 0 5 Knee extension 0 5 Plantarflexion 0 5 Dorsiflexion 0 5 Strength: decreased set designer strength in RUE, slight voluntary movement of the Right first and second fingers noted. . Spasticity Right Left Shoulder 3 0 Elbow flexion 0 0 Elbow extension 0 0 Wrist flexion 1 0 Wrist extension 1 0 Finger flexion 3 0 Finger extension 0 0 Hip adduction 0 0 Knee extension 1 0 Knee flexion 0 0 Plantarflexion 0 0 Modified Jesse Scale 0 - No increase in tone 1 - Slight increase in tone (catch and release at end of ROM) 1+ - Slight increase in tone, manifested by a catch, followed by minimal resistance throughout remainder (less than half of ROM) 2 - Marked increase in tone through most of the ROM, but affected part(s) easily moved 3 - Considerable increase in tone; passive movement difficult 4 - Affected part(s) rigid in flexion or extension Spasms observed: RUE: no right upper extremity spasms LUE: no left upper extremity spasms RLE: no right lower extremity spasms LLE: no left lower extremity spasms Timed 25 foot walk: N/A Assistance required: wheelchair and other (brace for Right hand) UNIVERSAL PROTOCOL / SAFETY CHECKLIST Procedure to be Performed: botox injections Sign In: A Moment of CARE was completed. Personnel directly involved with the procedure wore the appropriate PPE (Personal Protective Equipment). Patient/Surrogate Stated/Verified: PATIENT VERIFIED(optional for EMERGENT procedures): Patient name, Date of , Relevant allergies, and The intended procedure Time Out Communication: Intended patient and procedure match the source documents. Consent documented and matches the intended procedure. Relevant labs, photos, and/or imaging studies have been reviewed. Correct side/site marked and visible. Medications required for procedure verified. Fire risk assessed and interventions discussed. No implant(s) inserted. Sign Out: SIGN OUT (optional for EMERGENT procedures): No specimen collected. Marilia Siu PA-C UNIVERSAL PROTOCOL / SAFETY CHECKLIST The risks, benefits and alternatives of the procedure were explained. Written Consent Obtained: yes Clinician(s) performing the injections: Marilia Siu PA-C Incident Commander: Chelsey Hoang LPN The patient was positioned seated in wheelchair. Brand of toxin injected: Botox. After skin preparation with alcohol, a total dose of 300 units were injected as follows: Muscle Limb/Side Dose Guidance Comments Pectoralis Right 50 units EMG 2 sites Bicep RUE 50 units EMG 2 sites Tricep RUE 100 units EMG 3 sites FCR RUE 50 units EMG 1 sites FDP RUE 50 units EMG 1 sites Total Dose: 3000 units discarded. Dilution: 100 units / 1 ml LOT #: [id number] Expiration Date: Month: 5 Year: 25 The injections were well tolerated. Minimal bleeding occurred at the injection sites. 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 She continues to endorse pain related to spasticity in the right shoulder. After a discussion, she agreed to repeat the injections 300 units today, but we decreased the dose in the triceps and added it to the pectoralis to help with shoulder pain and spasticity. She was encouraged to re (more content not included)...[facility] 03-28-2022 History of Present illness Narrative* Marilia Siu PA-C - 03/28/2022 12:03 PM EST BOTULINUM TOXIN THERAPY Patient accompanied by : spouse Current complaints / history since last visit: most recent botulinum toxin injections on 11/14/2021. Illnesses / hospitalizations since the last visit: none Other updates: none Anticoagulation: none Home stretching/exercise routine: currently in PT BT therapy effective? Yes - stiffness Duration of benefit: 6 weeks Side effects: No Pain related to the purpose of the visit: Yes LOCATION: right shoulder PAIN CHARACTER: stiff Patient Entered Data PROMIS No flowsheet data found. Spasticity NRS 12/06/2021 11/14/2021 Spasticity Level 8 7 Spasm Scale 12/06/2021 11/14/2021 Spasm Frequency Infrequent full spasms occuriung less than once per hour Spasms occurring more thanonce per hour Spasm Severity Moderate Moderate Global Impression of Change 12/06/2021 11/14/2021 Rehab global impression of change No change Not applicable Nutritional status: swallowing ongoing choking on solids Driving issues: NA she's not able to drive due to low vision Safety concerns regarding living situations and safety at home: No At risk for falling: Yes . Actual falls since last visit: frequency/number 'too many to count', 0 injuries; falls are typically related to falling out of her wheelchair when leaning over too far Examination: Strength Right Left Shoulder abduction 0 5 Elbow flexion 0 5 Elbow extension 0 5 Wrist extension 0 5 Hip flexion 0 5 Knee flexion 0 5 Knee extension 0 5 Plantarflexion 0 5 Dorsiflexion 0 5 Strength: decreased set designer strength in RUE, slight voluntary movement of the Right first and second fingers noted. . Spasticity Right Left Shoulder 3 0 Elbow flexion 0 0 Elbow extension 0 0 Wrist flexion 1 0 Wrist extension 1 0 Finger flexion 3 0 Finger extension 0 0 Hip adduction 0 0 Knee extension 1 0 Knee flexion 0 0 Plantarflexion 0 0 Modified Jesse Scale 0 - No increase in tone 1 - Slight increase in tone (catch and release at end of ROM) 1+ - Slight increase in tone, manifested by a catch, followed by minimal resistance throughout remainder (less than half of ROM) 2 - Marked increase in tone through most of the ROM, but affected part(s) easily moved 3 - Considerable increase in tone; passive movement difficult 4 - Affected part(s) rigid in flexion or extension Spasms observed: RUE: no right upper extremity spasms LUE: no left upper extremity spasms RLE: no right lower extremity spasms LLE: no left lower extremity spasms Timed 25 foot walk: N/A Assistance required: wheelchair and other (brace for Right hand) UNIVERSAL PROTOCOL / SAFETY CHECKLIST Procedure to be Performed: botox injections Sign In: A Moment of CARE was completed. Personnel directly involved with the procedure wore the appropriate PPE (Personal Protective Equipment). Patient/Surrogate Stated/Verified: PATIENT VERIFIED(optional for EMERGENT procedures): Patient name, Date of , Relevant allergies, and The intended procedure Time Out Communication: Intended patient and procedure match the source documents. Consent documented and matches the intended procedure. Relevant labs, photos, and/or imaging studies have been reviewed. Correct side/site marked and visible. Medications required for procedure verified. Fire risk assessed and interventions discussed. No implant(s) inserted. Sign Out: SIGN OUT (optional for EMERGENT procedures): No specimen collected. Marilia Siu PA-C UNIVERSAL PROTOCOL / SAFETY CHECKLIST The risks, benefits and alternatives of the procedure were explained. Written Consent Obtained: yes Clinician(s) performing the injections: Marilia Siu PA-C Incident Commander: Chelsey Hoang LPN The patient was positioned seated in wheelchair. Brand of toxin injected: Botox. After skin preparation with alcohol, a total dose of 300 units were injected as follows: Muscle Limb/Side Dose Guidance Comments Pectoralis Right 50 units EMG 2 sites Bicep RUE 50 units EMG 2 sites Tricep RUE 100 units EMG 3 sites FCR RUE 50 units EMG 1 sites FDP RUE 50 units EMG 1 sites Total Dose: 3000 units discarded. Dilution: 100 units / 1 ml LOT #: [id number] Expiration Date: Month: 5 Year: 25 The injections were well tolerated. Minimal bleeding occurred at the injection sites. 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 She continues to endorse pain related to spasticity in the right shoulder. After a discussion, she agreed to repeat the injections 300 units today, but we decreased the dose in the triceps and added it to the pectoralis to help with shoulderpain and spasticity. She was encouraged to restart robaxin and continue PT. Plan: 1 - Repeat injections in 3 months, 300 units. 2 - continue PT 3 - restart robaxin Time spent with patient: 40 mn. Marilia Siu PA-C [facility] Plan note Future Appointments Appointment Date:04/09/2022 09:15:00 AM Scheduled Provider: Location:FT.OCCUPATIONAL Appointment Type:OT 60 (FT) Appointment Date:04/11/2022 09:45:00 AM Scheduled Provider: Location:FT.OCCUPATIONAL Appointment Type:OT 60 (FT) Appointment Date:04/11/2022 10:45:00 AM Scheduled Provider: Location:[facility].PHYSICAL [place] Appointment Type:PT 60 (FT) Appointment Date:04/16/2022 01:00:00 PM Scheduled Provider: Location:FT.OCCUPATIONAL Appointment Type:OT 60 (FT) Appointment Date:04/17/2022 01:00:00 PM Scheduled Provider: Location:.PHYSICAL [place] Appointment Type:PT 60 (FT) Appointment Date:04/19/2022 09:00:00 AM Scheduled Provider: Location:FT.OCCUPATIONAL Appointment Type:OT Re-Eval (FT) Appointment Date:04/19/2022 10:00:00 AM Scheduled Provider: Location:.PH[place]ICAL [place] Appointment Type:PT 60 (FT) Appointment Date:04/23/2022 09:00:00 AM Scheduled Provider: Location:FT.OCCUPATIONAL Appointment Type:OT 60 (FT) Appointment Date:04/23/2022 10:00:00 AM Scheduled Provider: Location:[facility]ICAL [place] Appointment Type:PT Re-Eval 60 (FT) Appointment Date:04/25/2022 09:30:00 AM Scheduled Provider: Location:FT.OCCUPATIONAL Appointment Type:OT 60 (FT) Appointment Date:04/25/2022 10:30:00 AM Scheduled Provider: Location:.PH[place]ICAL [place] Appointment Type:PT 60 (FT) Appointment Date:04/26/2022 12:45:00 PM Scheduled Provider:Remi Quintero MD Location:.[facility] [place] Appointment Type:Pain Management - Follow Up (FT) Appointment Date:04/30/2022 08:30:00 AM Scheduled Provider: Location:[facility] Mini Appointment Type:URO Nurse Visit Appointment Date:04/30/2022 09:30:00 AM Scheduled Provider: Location:.OCCUPATIONAL Appointment Type:OT 60 (FT) Appointment Date:04/30/2022 10:30:00 AM Scheduled Provider: Location:.PH[place]ICAL [place] Appointment Type:PT 60 (FT) Appointment Date:05/02/2022 10:15:00 AM Scheduled Provider: Location:FT.OCCUPATIONAL Appointment Type:OT 60 (FT) Appointment Date:05/02/2022 11:15:00 AM Scheduled Provider: Location:.[place]ICAL [place] Appointment Type:PT 60 (FT) Appointment Date:05/07/2022 10:00:00 AM Scheduled Provider: Location:FT.OCCUPATIONAL Appointment Type:OT 60 (FT) Appointment Date:05/09/2022 10:00:00 AM Scheduled Provider: Location:.OCCUPATIONAL Appointment Type:OT 60 (FT) Appointment Date:05/09/2022 11:15:00 AM Scheduled Provider: Location:FT.[place]ICAL [place] Appointment Type:PT 60 (FT) Appointment Date:05/14/2022 09:30:00 AM Scheduled Provider: Location:FT.OCCUPATIONAL Appointment Type:OT 60 (FT) Appointment Date:05/14/2022 10:30:00 AM Scheduled Provider: Location:.PH[place]ICAL [place] Appointment Type:PT Re-Eval 60 (FT) Appointment Date:05/16/2022 10:00:00 AM Scheduled Provider: Location:FT.OCCUPATIONAL Appointment Type:OT Re-Eval (FT) Appointment Date:05/21/2022 10:00:00 AM Scheduled Provider: Location:FT.OCCUPATIONAL Appointment Type:OT 60 (FT) Appointment Date:05/23/2022 10:00:00 AM Scheduled Provider: Location:FT.OCCUPATIONAL Appointment Type:OT 60 (FT) Appointment Date:05/28/2022 10:00:00 AM Scheduled Provider: Location:FT.OCCUPATIONAL Appointment Type:OT 60 (FT) Appointment Date:05/30/2022 10:00:00 AM Scheduled Provider: Location:FT.OCCUPATIONAL Appointment Type:OT 60 (FT) Appointment Date:06/04/2022 10:00:00 AM Scheduled Provider: Location:FT.OCCUPATIONAL Appointment Type:OT 60 (FT) Appointment Date:06/06/2022 10:00:00 AM Scheduled Provider: Location:FT.OCCUPATIONAL Appointment Type:OT 60 (FT) Appointment Date:06/11/2022 10:00:00 AM Scheduled Provider: Location:FT.OCCUPATIONAL Appointment Type:OT 60 (FT) Appointment Date:06/13/2022 10:00:00 AM Scheduled Provider: Location:FT.OCCUPATIONAL Appointment Type:OT Re-Eval (FT) [facility] 01-02-2023 Evaluation + Plan note Future Appointments Appointment Date:03/07/2022 10:30:00 AM Scheduled Provider: Location:FT.OCCUPATIONAL Appointment Type:OT 60 (FT) Appointment Date:03/14/2022 10:00:00 AM Scheduled Provider: Location:.OCCUPATIONAL Appointment Type:OT Re-Eval (FT) Appointment Date:03/29/2022 09:45:00 AM Scheduled Provider:MARILIA CR PA-C [facility] Appointment Type:URO Office Visit Appointment Date:04/26/2022 12:45:00 PM Scheduled Provider:Remi Quintero MD Location:[facility] Appointment Type:Pain Management - Follow Up (FT) [facility] Mini 12-21-2022 NoteHNO ID: [id number] Author: Jose Hassan MD Service: ? Author Type: Physician Type: Progress Notes Filed: 02/07/2022 2:32 PM Note Text: [facility] FOLLOWUP/ESTABLISHED PATIENT VISIT PRINCIPAL NEUROLOGIC DIAGNOSIS: suspected myelitis DISEASE SUMMARY Date of onset: October 162020 Date of diagnosis of MS: NA Disease course at onset: NA Current disease course: NA Previous disease therapies: none Current disease therapy: none Most recent MRI brain: 10/27/21 Most recent MRI cervical spine: 10/27/21 Most recent MRI thoracic spine: 02/03/2021 CSF: opening pressure 21.5, IgG index 1.0, 0 CSF-specific oligoclonal bands, 0 WBC, protein 27, glucose 79 (04/19/2021) JCV serology result and date: not assessed OCT: 12/06/21: Right eye: unreliable, Left eye: normal average pRNFL thickness (average: 86); intact ganglion cell segmentation (average GCL +IPL thickness of: 78) CHIEF COMPLAINT: Review diagnostic testing results and discuss implications INTERVAL HISTORY: Overall feels stable Getting OT locally Getting Botox, next Scheduled for February. Denies any new symptoms. Right sided weakness has continued, feels like there is more movement in her first two fingers. Her leg has been unchanged, but AFO has helped with standing. Refer to patient-entered data. Usual treating team: No specialty comments available. The patient is accompanied by . The patient was last seen September 2021, currently taking Not on DMT. Since the patient's last visit the patient reports overall feeling stable. Issues with current therapy: Not currently on disease modifying therapy. has a past medical history of Bowel incontinence, Gastroparesis, HTN (hypertension), Hypoglycemic reaction, Iritis (02/2016), Migraine, Right hemiplegia (HCC), Steroid-induced glaucoma, Urinary retention, Uveitis of right eye, and Wheelchair bound. has a current medication list which includes the following prescription(s): tramadol, rimegepant, potassium chloride, fesoterodine, linaclotide, metoclopramide hcl, meclizine, ascorbic acid (vitamin c), baclofen, pregabalin, methocarbamol, clopidogrel, desvenlafaxine, diclofenac (ec), docusate sodium, famotidine, fluticasone-vilanterol, furosemide, oxcarbazepine, quetiapine, losartan, sumatriptan, hyoscyamine sublingual, and pantoprazole EXAM: BP 126/85 Pulse 85 Ht 165.1 cm (5' 5 ) Wt 95.3 kg (210 lb) BMI 34.95 kg/m? General Appearance: well appearing, in no acute distress Mental status evaluation during the interview and examination showed normal level of consciousness, orientation, language, memory, praxis, and higher intellectual function Affect: Normal Visual acuity: OD Finger count OS Finger count Correction: With glasses Extraocular movements: full, without MICAH Facial sensation: Intact bilaterally Facial movements: Intact bilaterally Speech: Normal Muscle tone: Right arm spasticity: Mild and none Right leg spasticity: Severe Left arm spasticity: Mild and none Left leg spasticity: Severe and none Muscle strength (#/5): Right Upper Extremity: Left Upper Extremity: Deltoid 0/5 Deltoid 5/5 Biceps 0/5 Biceps 5/5 Triceps 0/5 Triceps 5/5 Wrist extensors 0/5 Wrist extensors 5/5 Wrist flexors 0/5 Wrist flexors 5/5 Dorsal interossei 0/5 Dorsal interossei 5/5 Abductor pollicis 0/5 Abductor pollicis 5/5 Finger flexion 2/5 Tone (Jesse scale) 2 Tone (Jesse scale) 0 RUE proximal spasticity Right Lower Extremity: Left Lower Extremity: Hip flexors 1/5 Hip flexors 5/5 Hip extensors 0/5 Hip extensors 5/5 Knee flexors 0/5 Knee flexors 5/5 Knee extensors 0/5 Knee extensors 5/5 Dorsiflexors 0/5 Dorsiflexors 5/5 Plantarflexors 0/5 Plantarflexors 5/5 Toe extensors 0/5 Toe extensors 5/5 Toe flexors 0/5 Toe flexors 5/5 Tone (Jesse scale) 0 Tone (Jesse scale) 0 Reflexes: brachioradialis +++ brachioradialis ++ biceps +++ biceps ++ triceps +++ triceps ++ patellar +++ patellar +++ Achilles +++ Achilles ++ clonus absent clonus absent plantar response NT plantar response NT Coordination: Upper extremity dexterity and rapid movements: limited by weakness on the right. Finger-nose: could not test Heel-rogers: could not test Sensory Perception: Decreased PP and ST of the right with some areas of hyperesthesia. Standing balance: Not tested, WC bound Standard gait: Non ambulatory Tandem walking: Non ambulatory RESULTS: Component Latest Ref Rng AND Units 09/22/2021 10/20/2021 WBC 3.70 - 11.00 k/uL 6.57 RBC 3.90 - 5.20 m/uL 4.51 Hemoglobin 11.5 - 15.5 g/dL 11.6 Hematocrit 36.0 - 46.0 % 36.9 MCV 80.0 - 100.0 fL 81.8 MCH 26.0 - 34.0 pg 25.7 (L) MCHC 30.5 - 36.0 g/dL 31.4 RDW-CV 11.5 - 15.0 % 14.6 Platelet Count 150 - 400 k/uL 227 MPV 9.0 - 12.7 fL 12.7 Neut% % 67.9 Abs Neut (ANC) 1.45 - 7.50 k/uL 4.47 Lymph% % 25.3 Abs Lymph 1.00 - 4.00 k/uL 1.66 Braxton% % 5.2 Abs Braxton <0.87 k/uL 0.34 (more content not included)...[facility]12-[facility]22 History of Present illness Narrative* Jose Hassan MD - 02/07/2022 1:25 PM EST [facility] FOLLOWUP/ESTABLISHED PATIENT VISIT PRINCIPAL NEUROLOGIC DIAGNOSIS: suspected myelitis DISEASE SUMMARY Date of onset: October 162020 Date of diagnosis of MS: NA Disease course at onset: NA Current disease course: NA Previous disease therapies: none Current disease therapy: none Most recent MRI brain: 10/27/21 Most recent MRI cervical spine: 10/27/21 Most recent MRI thoracic spine: 02/03/2021 CSF: opening pressure 21.5, IgG index 1.0, 0 CSF-specific oligoclonal bands, 0 WBC, protein 27, glucose 79 (04/19/2021) JCV serology result and date: not assessed OCT: 12/06/21: Right eye: unreliable, Left eye: normal average pRNFL thickness (average: 86); intact ganglion cell segmentation (average GCL +IPL thickness of: 78) CHIEF COMPLAINT: Review diagnostic testing results and discuss implications INTERVAL HISTORY: Overall feels stable Getting OT locally Getting Botox, next Scheduled for February. Denies any new symptoms. Right sided weakness has continued, feels like there is more movement in her first two fingers. Herleg has been unchanged, but AFO has helped with standing. Refer to patient-entered data. Usual treating team: No specialty comments available. The patient is accompanied by . The patient was last seen September 2021, currently taking Not on DMT. Since the patient's last visit the patient reports overall feeling stable. Issues with current therapy: Not currently on disease modifying therapy. has a past medical history of Bowel incontinence, Gastroparesis, HTN (hypertension), Hypoglycemic reaction, Iritis (02/2016), Migraine, Right hemiplegia (HCC), Steroid-induced glaucoma, Urinary retention, Uveitis of right eye, and Wheelchair bound. has a current medication list which includes the following prescription(s): tramadol, rimegepant, potassium chloride, fesoterodine, linaclotide, metoclopramide hcl, meclizine, ascorbic acid (vitamin c), baclofen, pregabalin, methocarbamol, clopidogrel, desvenlafaxine, diclofenac (ec), docusate sodium, famotidine, fluticasone-vilanterol, furosemide, oxcarbazepine, quetiapine, losartan, sumatriptan, hyoscyamine sublingual, and pantoprazole EXAM: BP 126/85 Pulse 85 Ht 165.1 cm (5' 5 ) Wt 95.3 kg (210 lb) BMI 34.95 kg/m General Appearance: well appearing, in no acute distress Mental status evaluation during the interview and examination showed normal level of consciousness,orientation, language, memory, praxis, and higher intellectual function Affect: Normal Visual acuity: OD Finger count OS Finger count Correction: With glasses Extraocular movements: full, without MICAH Facial sensation: Intact bilaterally Facial movements: Intact bilaterally Speech: Normal Muscle tone: Right arm spasticity: Mild and none Right leg spasticity: Severe Left arm spasticity: Mild and none Left leg spasticity: Severe and none Muscle strength (#/5): Right Upper Extremity: Left Upper Extremity: Deltoid 0/5 Deltoid 5/5 Biceps 0/5 Biceps 5/5 Triceps 0/5 Triceps 5/5 Wrist extensors 0/5 Wrist extensors 5/5 Wrist flexors 0/5 Wrist flexors 5/5 Dorsal interossei 0/5 Dorsal interossei 5/5 Abductor pollicis 0/5 Abductor pollicis 5/5 Finger flexion 2/5 Tone (Jesse scale) 2 Tone (Jesse scale) 0 RUE proximal spasticity Right Lower Extremity: Left Lower Extremity: Hip flexors 1/5 Hip flexors 5/5 Hip extensors 0/5 Hip extensors 5/5 Knee flexors 0/5 Knee flexors 5/5 Knee extensors 0/5 Knee extensors 5/5 Dorsiflexors 0/5 Dorsiflexors 5/5 Plantarflexors 0/5 Plantarflexors 5/5 Toe extensors 0/5 Toe extensors 5/5 Toe flexors 0/5 Toe flexors 5/5 Tone (Jesse scale) 0 Tone (Jesse scale) 0 Reflexes: brachioradialis +++ brachioradialis ++ biceps +++ biceps ++ triceps +++ triceps ++ patellar +++ patellar +++ Achilles +++ Achilles ++ clonus absent clonus absent plantar response NT plantar response NT Coordination: Upper extremity dexterity and rapid movements: limited by weakness on the right. Finger-nose: could not test Heel-rogers: could not test Sensory Perception: Decreased PP and ST of the right with some areas of hyperesthesia. Standing balance: Not tested, WC bound Standard gait: Non ambulatory Tandem walking: Non ambulatory RESULTS: Component Latest Ref Rng & Units 09/22/2021 10/20/2021 WBC 3.70 - 11.00 k/uL 6.57 RBC 3.90 - 5.20 m/uL 4.51 Hemoglobin 11.5 - 15.5 g/dL 11.6 Hematocrit 36.0 - 46.0 % 36.9 MCV 80.0 - 100.0 fL 81.8 MCH 26.0 - 34.0 pg 25.7 (L) MCHC 30.5 - 36.0 g/dL 31.4 RDW-CV 11.5 - 15.0 % 14.6 Platelet Count 150 - 400 k/uL 227 MPV 9.0 - 12.7 fL 12.7 Neut% % 67.9 Abs Neut (ANC) 1.45 - 7.50 k/uL 4.47 Lymph% % 25.3 Abs Lymph 1.00 - 4.00 k/uL 1.66 Braxton% % 5.2 Abs Braxton <0.87 k/uL 0.34 Eosin% % 0.5 Abs Eosin <0.46 k/uL 0.03 Baso% % 0.6 Abs Baso <0.11 k/uL 0.04 Immature Gran % % 0.5 IMMATURE GRANS (ABS) <0.10 k/uL 0.03 NRBC /100 WBC 0.0 Absolute nRBC <0.01 k/uL <0.01 DTYPE Auto Encephalopathy Interpretation SEE NOTE AMPA-R AB CBA, S Negative Negative Amphiphysin Ab <1:240 titer Negative Anti-Glial Nuclear Ab, Type 1 <1:240 titer Negative Anti-Neuronal Nuc Ab, Type 1 <1:240 titer Negative Reflex Tests Added None. Anti-Neuronal Nuc Ab, Type 2 <1:240 titer Negative Anti-Neuronal Nuc Ab, Type 3 <1:240 titer Negative CASPR2-IGG CBA S Negative Negative CRMP-5, IgG <1:240 titer Negative DPPX Ab IFA, S Negative Negative DELFIN-B-R Ab CBA, S Negative Negative GAD65 Antibody <=0.02 nmol/L 0.00 GFAP IFA, S Negative Negative IgLON5 IFA, S Negative Negative LGI1-IGG CBA Serum Negative Negative mGluR1 Ab IFA, S Negative Negative NIF IFA, S Negative Negative NMDA-R AB CBA, S Negative Negative Purkinje Cell Cyto Ab, Type 1 <1:240 titer Negative Purkinje Cell Cyto Ab, Type 2 <1:240 titer Negative Purkinje Cell Cyto Ab, Type Tr <1:240 titer Negative Protein, Total 6.3 - 8.0 g/dL 6.3 Albumin 3.9 - 4.9 g/dL 4.7 Calcium 8.5 - 10.2 mg/dL 9.8 Bilirubin, Total 0.2 - 1.3 mg/dL 0.2 Alkaline Phosphatase 34 - 123 U/L 80 AST 13 - 35 U/L 41 (H) ALT 7 - 38 U/L 34 Glucose 74 - 99 mg/dL 125 (H) BUN 7 - 21 mg/dL 13 Creatinine 0.58 - 0.96 mg/dL 0.77 Sodium 136 - 144 mmol/L 137 Potassium 3.7 - 5.1 mmol/L 4.3 Chloride 97 - 105 mmol/L 99 CO2 22 - 30 mmol/L 25 Anion Gap 9 - 18 mmol/L 13 eGFR >=60 mL/min/1.73m 95 c-ANCA Fluorescence Negative Negative p-ANCA Fluorescence Negative Negative Interpretation (ANCA) Negative for C-ANCA and P-ANCA by indirect immunofluorescence. Staff Review (ANCA) No review performed. [employer] Demyelinating Disease Interp, S NMO/AQPF FACS, S Negative MOG-IgG1 FACS Negative Syphilis Screen Result Nonreactive Syphilis Interpretation Sm Antibody Negative Negative Anti-Sm <1.0 AI <0.2 PIZZA DELIVERY DRIVER Antibody QUAL Negative Negative Anti-PIZZA DELIVERY DRIVER <1.0 AI <0.2 SSA Antibody Qual Negative Negative Anti-SSA <1.0 AI <0.2 Anti-SSB <1.0 AI <0.2 SSB Antibody Qual Negative Negative CENTROMERE AB QUAL Negative Negative Centromere Ab <1.0 AI <0.2 Scleroderma Ab Qual Negative Negative Scl-70 Abs, EIA <1.0 AI <0.2 CHE 1 ANTIBODY QUAL Negative Negative Che 1 Antibody <1.0 AI <0.2 Ribosomal PIZZA DELIVERY DRIVER Qualitative Negative Negative Ribosomal PIZZA DELIVERY DRIVER Ab <1.0 AI <0.2 Chromatin Ab Qual Negative Negative Chromatin Ab <1.0 AI <0.2 VINNIE Negative C4 13 - 46 mg/dL C3 86 - 166 mg/dL Rheumatoid Factor <16 IU/mL NMO Aquaporin 4 IgG <1:10 Cardiolipin Ab, IgM <12.5 MPL Vitamin B12 232-1,245 pg/mL Copper 80 - 155 ug/dL VAHE <=52 U/L 51 57 (H) Interleukin-2 Receptor, Serum 175.3 - 858.2 pg/mL 657.1 CRP <0.9 mg/dL 1.4 (H) WSR 0 - 20 mm/hr 10 MRI Results: MRI brain/Cervical and thoracic spine 10/27/2021 IMPRESSION: No evidence of an acute intracranial process. Unremarkable appearance of the cerebral white matter. No signal abnormality in the cervical or thoracic cord. Mild degenerative change in the cervical and thoracic spine without significant canal or foraminal stenosis. Spinal stimulator in stable position. 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 Repeat MRI of the brain and spinal cord show no enhancement and no focal WM lesions. OCT was normal in the left eye. ENC2, MOG, NMO and other screening inflammatory tests are negative. CT scan of the chest did show interstitial lung disease subsegmental atelectasis. Sarcoid was felt to be unlikely by pulmonary. Seen by Rheumatology screening blood tests were mostly negative. She has had progression of vision loss which is reportedly due to uveitis. There is no clear evidence of inflammation currently in the [employer]. Given uveitis, I would be willing to consider a course of Cellcept for 6 months and assess response, but will discuss first with Rheumatology, Neuro-ophthalmology, and Pulmonary. Continue with PT/OT, PMR for spasticity and pain management. All questions answered. Follow-up in 3months. No orders found for this visit on 02/07/22. The chart was reviewed for possible participation in the following studies:None Follow-up: In 3 months at [facility] I spent a total of 40 minutes on the date of the service which included preparing to see the patient, [id number] patient care, completing clinical documentation, obtaining and/or reviewing separately obtained history, performing a medically appropriate examination, counseling and educating the pat ient/family/caregiver, communicating with other HCPs (not separately reported), independently interpreting results (not separately reported), communicating results to the patient/family/caregiver, and care coordination (not separately reported). Jose Hassan MD PhD [facility] documented [facility] this [facility]12-[facility] Evaluation + Plan note Future Appointments Appointment Date:02/08/2022 01:00:00 PM Scheduled Provider: Location:.OCCUPATIONAL Appointment Type:OT 60 () Appointment Date:02/14/2022 10:45:00 AM Scheduled Provider: [facility] Type:OT Re-Eval () Appointment Date:02/28/2022 09:30:00 AM Scheduled Provider:Axel Garcia Location:Critical access hospital Appointment Type:URO Office Visit Appointment Date:04/26/2022 12:45:00 PM Scheduled Provider:Remi Quintero MD Location:FT.[facility] [place] Appointment Type:Pain Management - Follow Up (FT) [facility] [id number] Miscellaneous Notes* Telephone Encounter - Ana Ryan PT DPT - 12/27/2021 8:16 AM EST Called and spoke with pt sister Nathaly. Noting that there is potential for hernia surgery in the upcoming weeks based on imaging. Noting that pt will be doing therapy closer to home also, so cancelled upcoming appointments. [facility] [place]. Pt also planning to get wheelchair. Will update therapist when more information arises. Ana Ryan PT DPT Clinical Director Of Front Office- [place] Board Certified Clinical Specialist in Neurologic Physical Therapy documented in this [facility]Ber[facility]11-07-2022 History of Present illness Narrative* DES Warner - 12/25/2021 8:36 AM EST Faxed orders for PT and OT to [phone] Attn: Freya Sargent documented in this [facility]11-02-2022 Evaluation + Plan note Future Appointments Appointment Date:01/09/2022 10:00:00 AM Scheduled Provider: Location:FT.OCCUPATIONAL Appointment Type:OT 60 (FT) Appointment Date:01/09/2022 02:45:00 PM Scheduled Provider:MARILIA CR PA-C Location:Critical access hospital Appointment Type:URO Office Visit Appointment Date:01/17/2022 10:45:00 AM Scheduled Provider: Location:FT.OCCUPATIONAL Appointment Type:OT 60 (FT) Appointment Date:01/24/2022 12:30:00 PM Scheduled Provider:Remi Quintero MD Location:FT.Pain Mgmt [place] Appointment Type:Pain Management - Follow Up (FT) Appointment Date:01/24/2022 01:15:00 PM Scheduled Provider: Location:FT.OCCUPATIONAL Appointment Type:OT 60 (FT) Appointment Date:01/31/2022 08:30:00 AM Scheduled Provider:Axel Garcia Location:Critical access hospital Appointment Type:URO Office Visit Appointment Date:01/31/2022 02:00:00 PM Scheduled Provider: Location:FT.OCCUPATIONAL Appointment Type:OT Re-Eval (FT) Appointment Date:02/08/2022 01:00:00 PM Scheduled Provider: Location:FT.OCCUPATIONAL Appointment Type:OT 60 (FT) Appointment Date:02/14/2022 10:45:00 AM Scheduled Provider: Location:FT.OCCUPATIONAL Appointment Type:OT Re-Eval (FT) Future Scheduled Tests Laboratory* Electrolyte Panel 01/10/21 [facility] 11-01-2022 History of Present illness Narrative* Ana Ryan PT, DPT - 12/19/2021 3:08 PM EDT Episode Visit Count: 2 Therapist That Will Accept/Oversee The Plan Of Care: Ana Ryan PT, DPT, NCS Start of Care Date: 12/06/21 Onset Date: 09/18/21 Plan of Care Certification Date: 12/06/21 Next Certification Due Date: 02/05/22 Patient Identified by Name and Date of : Yes REHABILITATION AND SPORTS THERAPY PHYSICAL THERAPY TREATMENT NOTE ASSESSMENT: Jessica Gutierrez tolerated the session with fatigue and abdominal discomfort at times dueto reported hernia. She demonstrated difficulty with bed mobility and activation of R LE with supine exercises .Increased time to additionally address pt sister's questions related to additional therapy needs and equipment options. Noted limitations existing with remaining visits allowed before endo year and combined nature of visits towards visit count. The patient will continue to benefit from ongoing skilled physical therapy to progress toward set goals. PLAN FOR NEXT VISIT: FIST- core stability. see if pt followed up with hernia information SUBJECTIVE: Patient Reason for Visit: pt sister present today- wanting to know about OT ability forR UE function. noting she tried to work on standing a few times at home Pain: Pain Pain Level: 0 Post Treatment Pain Post Treatment Pain Level: No Change OBJECTIVE MEASURES WITH LEVEL OF FUNCTION: Mobility Sit To Stand: Moderate Assistance Stand To Sit: Moderate Assistance Bed To Chair: Moderate Assistance Bed To Chair Transfer Type: Stand Pivot Bed To Chair Transfer Equipment: Gait Belt TREATMENT: Therapeutic Exercise: 1: *heel slides 2: *ankle pumps 3: *hip flexion marching 4: *SAQ 5: education for need of assistance with R LE mobility, encouraged increased practice for L LE mobility Skilled Intervention: Patient was educated in proper exercise technique and purpose for exercises. Reviewed and educated patient on additions/changes for home exercise program as above (*). Skilled judgment was provided in selection of appropriate interventions. Provided written instruction for home exercise program to facilitate proper performance and compliance. Correct performance of therapeutic exercises was facilitated with verbal, visual, and tactile cuing. Educated patient on rationale for performing exercises in regards to decreasing fatigue , increase ease of ADL, and ROM and function . Patient education as noted. Therapeutic Activity: 1: WCH>mat mod A stand pivot 2: sit to supine with cues for self management with log roll vs reverse sit up. noting goal of protection of hernia area 3: *rolling practice- cues for return to sidelying with increased independence vs total A from 4: mat>WCH mod A 5: recommended use of abdominal binder to assist when completing transfers Skilled Intervention: Proper patient guarding to prevent falls/increase patient safety with moderate assistance, minimal assistance, contact guard assistance to assist patient while performing transfers and bed mobility Insured patient safety with use of gait belt Education as noted Self-Longterm Management: 1: reviewed recommendations to set up follow up appts to follow up about abdominal hernia 2: reviewed potential options for additional assistance at home- recommended reaching out to insurance to see what options are covered for ONLINE SERVICES MANAGER 3: address pt sister's questions related to additional therapy services. Noted concern given end ofyear and limited visits remaining combined with PT already 4: recommended additional follow up for catheter management- pt sister asking about geting into pool pending cathether removal. noted options for locations that can accept patient based on dx Skilled Intervention: Skilled judgment in the selection of proper modification for activity of daily living/home management based on clinical presentation, deficits, and needs. Billing Therapeutic Exercise Treatment Minutes: 25 Therapeutic Activity Treatment Minutes: 15 Self-Care/Home Management Treatment Minutes: 20 Total Treatment Time Minutes (timed/untimed): 60 Ana Ryan PT DPT documented in this [facility]10-24-2022 Miscellaneous Notes* Telephone Encounter - Ana Ryan PT DPT - 12/11/2021 12:18 PM EDT Returning pt VM regarding ongoing discussion about location to resume PT. Asked pt to call back with times available to discuss. [phone]. Ana Ryan PT DPT Clinical Director Of Front Office- [place] Board Certified Clinical Specialist in Neurologic Physical Therapy documented in this [facility]10-21-2022 Miscellaneous Notes* Telephone Encounter - Ana Ryan PT DPT - 12/08/2021 10:50 AM EDT Left VM for patient per our discussion at [facility] on Wednesday 12/06. Reviewed conversation about therapy at [facility]. Asked pt to call therapist back when message is received to discuss her decision about where she would like to continue with outpatient therapy for the remaining visits for the year. [phone] Ana Ryan PT DPT Clinical Director Of Front Office- [place] Board Certified Clinical Specialist in Neurologic Physical Therapy documented in this [facility]10-19-2022 History of Present illness Narrative* Ana Ryan PT DPT - 12/06/2021 1:43 PM EDT Episode Visit Count: 1 Therapist That Will Accept/Oversee The Plan Of Care: Ana Ryan PT DPT, NCS Start of Care Date: 12/06/21 Onset Date: 09/18/21 Plan of Care Certification Date: 12/06/21 Next Certification Due Date: 02/05/22 Patient Identified by Name and Date of : Yes REHABILITATION AND SPORTS THERAPY PHYSICAL THERAPY RE-EVALUATION PLAN OF CARE: Assessment: Jessica Gutierrez presents with chief complaint of R LE weakness that interferes with rising from a chair;standing;walking;recreational activities;physical activities;use hand with arm at shoulder level;dressing;cooking;cleaning;grooming;bladder function . She presents with impairments in ADL's, gait, independence in exercise, joint mobility, overall function, range of motion, and strength . PROMIS (Patient-Reported Outcomes Measurement Information System) scores were reviewed and physical function domain and social roles domain identified as a rehabilitation concern. Prognosis for therapy is Fair due to: clinical presentation;chronic nature of impairments;limited support system;limited tolerance to activity . She will benefit from skilled therapy services to meet the goals established for this plan of care as noted below. Barriers do exist related to travel distance from pt home to [place]. Discussed potential for additional neuro based therapy options closer to home, including [facility] location. Additionally noted [facility] neuro based therapy, however pt living equidistant between [place] and [place]. Pt also has limitation on remaining therapy visits for the year (9 remain after today) due to outpatient therapy already completed this year. Therapist to call pt on Saturday after she has a chance to discuss with her as to plan for follow up visits at [place] vs [place]. Goals for Episode of Care: created on 12/06/21 through 01/06/22 Patient will perform sit to stand and wheelchair to mat transfers with contact guard assist with slideboard or LRAD to improve safety and independence with transfers. Patient will demonstrate current home exercise program independently. Improve score on the Function In Sitting Test to TBD/56 to improve sitting balance. - assess at upcoming session. Patient Goals: improve independence with transfers and mobility, see what other options there are therapy related Planned Interventions, Frequency, and Duration: Current Frequency: 1x/week Duration: 4 weeks Total Number of Visits Planned: 4 Planned Treatment Interventions: Therapeutic exercise (28801);Neuromuscular re- education (84967);Manual therapy (91718);Therapeutic activities (91428);Self- mcfp management (33967);Gait Training (38100);Aquatic PT (27925);Patient/Family/Caregiver Education;Body Mechanics Training;Functional training;General Conditioning;Orthosis / DME PLAN FOR NEXT VISIT: FIST. continue care at [facility] Patient demonstrates good understanding of plan of care and treatment. The above goals and plan of care were discussed and agreed upon by patient/family. SUBJECTIVE: Jessica Gutierrez is a 46 year old female seen today for referred for further evaluation/consideration of additional therapy options. pt had been going to local PT but not feeling like therapist was well versed/enthusiastic about working on progress.reporting that has to help with ADLs and transfers. wants to be more independent with mobility, but has a hard time due to R LE/UE weakness Patient Goals: improve independence with transfers and mobility, see what other options there are therapy related Functional Limitations: rising from a chair;standing;walking;recreational activities;physical activities;use hand with arm at shoulder level;dressing;cooking;cleaning;grooming;bladder function Prior Level of Function: Required assistance Required assistance with: ADL's;Instrumental ADL's;Ambulation / Mobility Prior Functional Level Comments: since last year, has required assist with ADLs. Relevant History Past Relevant Medical Conditions: (transverse myelitis) Home Environment Patient Lives With: Family Assistance Available: 24-Hour Home Type: Multi-Level with First Floor Set-Up Entry To Home: Ramp Equipment Owned: Shower Chair (transport wheelchair) Transportation: Travels as a passenger Intake Information: Prescription present Previous Treatment: Home Therapy ;Physical Therapy Falls Interview: Fall with injury in the last year Falls Intervention: More thorough falls assessment to be performed Pain: Pain Pain Level: 0 Post Treatment Pain Post Treatment Pain Level: No Change PROMIS Scales Higher is Better 12/20/2015 10/19/2021 11/14/2021 Phys Func - Score - 29 (severe dysfunction) - Phys Func - Percentile - 2 % - GH Physical - Score - 26.7 (Poor) 26.7 (Poor) GH Physical - Percentile 15 % 1 % 1 % GH Mental - Score - 36.3 (Fair) 31.3 (Fair) GH Mental - Percentile 3 % 9 % 3 % T-scores: mean of general population = 50. 5 points is clinically meaningfully difference Percentiles provide an indication of how the patient's score ranks in relation to the general population. Higher percentile rankings indicate better function/quality of life. 50th percentile is the average of the general population and indicates half of respondents had a worse score. Lower is Better 10/19/2021 Fatigue - Score 62 (moderate) Fatigue - Percentile 12 % T-scores: mean of general population = 50. 5 points is clinically meaningfully difference Percentiles provide an indication of how the patient's score ranks in relation to the general population. Higher percentile rankings indicate better function/quality of life. 50th percentile is the average of the general population and indicates half of respondents had a worse score. OBJECTIVE MEASURES WITH LEVEL OF FUNCTION: Vision Vision Deficits: Comments Vision Comments: legally blind. closes R eye completely. difficulty tracking and with vision in R eye Posture / Alignment Posture: Forward head UE Observations: flaccid R UE, hand in finger extension splint LE Observations: wrapping L LE around R LE to move and reposition LE PROM R Hip Flexion: 90 Degrees R Hip ABduction: 25 Degrees R Knee Extension: -10 Degrees R Knee Flexion: 100 Degrees R Ankle Dorsiflexion: 5 Degrees R Ankle Plantar Flexion: 5 Degrees LE Strength R Hip Flexion (L2): 0/5 R Hip ABduction: 0/5 R Knee Extension (L3): 0/5 R Knee Flexion: 0/5 R Ankle Dorsiflexion (L4): 0/5 R Ankle Plantar Flexion: 0/5 L Hip Flexion (L2): 4/5 L Knee Extension (L3): 4/5 L Knee Flexion: 4/5 L Ankle Dorsiflexion (L4): 4/5 L Ankle Plantar Flexion: 4/5 Tone Tone: Spastic;Flaccid Tone Testing: Modified Jesse Scale Lower Extremity R Hip Flexor: 0: No increase in tone R Hip Extensor: 2: Marked increase in tone through most of ROM but effected part easily moved R Hip Adductor: 1+: Slight increase in tone, manifiested by a catch followed by min resistance throughout remainder (less than 1/2) R Knee Extensor: 0: No increase in tone R Knee Flexor: 0: No increase in tone R Plantarflexor: 1+: Slight increase in tone, manifiested by a catch followed by min resistance throughout remainder (less than 1/2) L Hip Flexor: 0: No increase in tone L Hip Extensor: 0: No increase in tone L Hip Adductor: 0: No increase in tone L Knee Extensor: 0: No increase in tone L Knee Flexor: 0: No increase in tone L Plantarflexor: 0: No increase in tone Mobility Rolling: Moderate Assistance Supine To Sit: Minimal Assistance (LE support, verbal cues for performance) Sit to Supine: Minimal Assistance (LE management) Sit To Stand: Moderate Assistance Stand To Sit: Moderate Assistance Bed To Chair: Moderate Assistance Bed To Chair Transfer Type: Stand Pivot Wheelchair Mobility: Set-up / Hardware Management;Comments;Manual Wheelchair Propulsion Manual Wheelchair Propulsion: Supervision (due to vision) Wheelchair Mobility Comments: propelling with feet. cues for navigation due to vision impairment Mobility Comments: increased need for assistance due to poor brakes on WCH. pt pulls to stand with use of ll bar Balance Static Standing Balance: Comments Static Standing Balance Comments: mod/max UE support, mod A from therapist. cues for neutral positioning vs leaning towards L Education: Education Learning Preferences: Demonstration;Explanation;Performance Barriers: Visual Deficit;Other: See Comment (distance from therapy locations) Learning/educational needs: Health promotion;Safety;Home exercise program;Plan of Care;Changes in Plan of Care;Posture;Brace Fit;Gait Training;Body Mechanics Education Provided: Yes, see treatment interventions for education provided Education Provided To: Patient;Other: See Comment (family friend present) Education Mode/Type: Demonstration;Explanation/Discussion;Performance Response to Education/Teach Back: Requires Review/Additional Education TREATMENT: PT Treatment Interventions: Therapeutic Activity Re-evaluation: pt seeking additional therapy opinion, has been working with OP therapy closer to home Therapeutic Activity: 1: transfer training: bed<>chair, rolling, supine<>sit. education regarding R LE foot placement and cues to assist with improved performance with at home. Reviewed benefit of continued practice with skilled therapy to improve independence 2: noted need for increased practice at home for further improvements in independence. reviewed safety and need for supervision with increased trials at home due to visual impairments 3: sit to stand practice near ll bars- cues for L hand placement on arm rest vs pull to stand on bar. mod-max A for balance 4: reviewed therapy options and planning due to remaining visits allotted per insurance. 5: discussed benefit of OT services, however also need to be concerned with insurance visits remainig- PT/OT benefits are combined 6: discussed resources for neuro based PT- [facility], [facility] vs [place]. 7: education regarding frequency of visits and potential limitations due to visit limit remaining Skilled Intervention: Proper patient guarding to prevent falls/increase patient safety with moderate assistance to assist patient while performing transfers Insured patient safety with use of gait belt Educated on proper/safe technique for activities performed today. Activity progression based on professional judgment. Education as noted Correct performance of home program was facilitated with verbal cueing. Billing * Re-Evaluation : 1 Unit Therapeutic Activity Treatment Minutes: 45 Total Treatment Time Minutes (timed/untimed): 70 Ana Ryan PT DPT documented in this encounterBer[facility]10-19-2022 Miscellaneous Notes* Telephone Encounter - Ana Ryan PT DPJoe - 12/06/2021 12:58 PM EDT Called and left VM on pt phone number listed. Noted pt was to be seen today at 11:15 for PT evaluation, however note received pt running late. Called pt at 12:58 to see if pt still in town and wanting to be seen this afternoon for PT evaluation. Offered for pt to call back to discuss or potentially come on Saturday pending virtual vs in person appt with Willow Enriquez. Asked pt to call therapist back [phone]. Will send [employer] message also. Ana Ryan PT DPJoe Clinical Director Of Front Office- [place] Board Certified Clinical Specialist in Neurologic Physical Therapy documented in this encounterBerger Hospital10-19-2022 History of Present illness Narrative* Prieto Elizondo MD - 12/06/2021 12:07 PM EDT Jessica Gutierrez is a 46 year old right-handed woman who presents today for right greater than left vision loss. The patient was referred by Dr. Hassan. As per patient and chart review, she has a very complex neurologic history including bilateral vision loss and transverse myelitis. 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 She did see Dr. Zhao back in 2016 as well and had been followed by Dr. Chen thereafter, without follow up at [place] since 2017. Her vision in the left eye declined around the same time back in 2016, but it was more of a progressive/ insidious onset without an acute episode of vision loss with or without pain on eye movements. The patient otherwise denies binocular diplopia, oscillopsia, or other neuro- ophthalmic symptoms. She additionally has a history of migraines. Thorough review of the patient's medical, family, surgical and social history was performed along with medications, allergies, labs and imaging (if applicable). ASSESSMENT/PLAN: (H54.3) Vision loss, bilateral (primary encounter diagnosis) (G37.3) Transverse myelitis (HCC) (H20.9) Uveitis The patient's neuro-ophthalmic exam today was limited as the patient apparently had a visit at the [facility] that we were unfortunately not made aware of until she was already late. While I was unable to get a view of the right nerve in the setting of the aforementioned prieto to get to [place], the left optic nerve and posterior pole were normal in appearance at slit lamp with intact peripapillary retinal nerve fiber layer and GC left eye on OCT. I will ultimately need to see her back given the rushed visit today, and she should ultimately be following up with uveitis as well, as she was unable to see them in October. I have discussed her care with Dr. Dillon who has kindly agreed to see her in the next month. Prieto Elizondo MD 4:02 PM 12/06/2021 FOR ADMINISTRATIVE PURPOSES ONLY: My impression of this case is based upon an assessment of the the patient's subacute on chronic problems listed above that pose a threat to visual and neurologic function. 50 minutes were spent on total patient care on the day of service that includes both [id number] and sbt-[id number]-face time. This time was separate from any of my time spent completing and interpreting the ancillary testing (such as OCT, fundus photos, visual barone) and sensorimotor exam, if applicable. I communicated with Dr. Enriquez and Dr. Quinteros regarding the management of this patient. The assessment and plan were discussed extensively with the patient who was amenable and voiced understanding. documented in this encounterBerger Hospital10-11-2022 History of Present illness Narrative* Estefania Alatorre RRT - 11/28/2021 1:58 PM EDT PULM FUNCTION SMARTBLOCK: Provider: Odilia Cole MD Spirometry: 1 DLCO: 1 documented in this encounterBerger Hospital09-27-2022 Instructions* Patient Instructions* Desiree Enriquez APRN.CNP - 11/14/2021 2:20 PM EDT You have received botulinum toxin injections today. The skin around the site of injections should be monitored for a couple of days. If redness or swelling occur, the skin should be examined by a health care transition manager to rule out infection. Please contact our office via [employer] or by phone at [phone] in 2 weeks to report on the effects of the injections, or any time with any questions or concerns. Please note that your next injections should not be scheduled less than 90 days from today. If your health insurance changes before the next injections, please contact our office at [phone] as soon as possible so we can submit a new pre- authorization if needed. Please note that we may not be able to perform the injections if your insurance changes and the treatment is not pre-authorized. documented in this encounterBerger Hospital09-27-2022 History of Present illness Narrative* Desiree Enriquez APRN.BOZENA - 11/14/2021 1:45 PM EDT BOTULINUM TOXIN THERAPY Patient accompanied by: son, Gabriele, and her , Jerome. Current complaints / history since last visit: pt. is here for 1st round of botox injections today. She was seen for initial evaluation in 09/2021 and deemed a good candidate for botox. Initial plan is to inject the Right pectoralis muscle (50 units in 2 sites), bicep (50 units), tricep (50 units), FCR (50 units), FDP (50 units- total of 250 units). Pt. reports ongoing stiffness and pain in the RUE and RLE, especially in the Right shoulder/upper arm. Her fingers and wrist also remain very tight. Jerome reports he awoke the other night and saw pt. move her Right forearm to scratch her face. Pt. reports she does have some voluntary movement in the first 2 fingers on the Right hand. Illnesses / hospitalizations since the last visit: None reported Other updates: Robaxin prescribed at last visit has not provided additional benefit and she feels it can make her tired during the day (she is taking 1 tablet in the morning and 2 at bedtime). Anticoagulation: Plavix 75 mg daily, medication is not held for injections Home stretching/exercise routine: She has been doing OP PT/OT locally. She has 10 more sessions of therapy, but has not been going recently, as she feels the therapist there doesn't know what to do with me and was not very encouraging. She states that her therapist does not have any prior experience with patient's with similar symptoms. BT therapy effective? [facility] BOTOX - BT THERAPY EFFECTIVE: NA- here for first round of injections today. Pain related to the purpose of the visit: Yes LOCATION: Right shoulder, Right upper chest, Right knee, also has chronic HAs PAIN SCALE: 6-7 on a scale of 0-10 PAIN CHARACTER: aching, numbness, sharp, soreness, and stiffness DURATION: (How long have you had the pain?) chronic- present for the last several months FREQUENCY: (How often does the pain occur?) occurs constantly Patient Entered Data PROMIS No flowsheet data found. Spasticity NRS No flowsheet data found. Spasm Scale No flowsheet data found. Global Impression of Change No flowsheet data found. Skin: intact per pt. report Nutritional status: Appetite is okay- she has gained weight due to inactivity, but weight has been stable since last visit. She has also had increased difficulties swallowing, especially with hard/dry foods. She is trying to chew more thoroughly and takes smaller bites. She has never seen speech therapy and has never had a swallow eval Driving issues: NA- not currently driving Safety concerns regarding living situations and safety at home: lives in a multilevel home with Jerome orellana, who works third shift. They have three children, 2 daughters and a son- oldest daughter and youngest daughter live with them (ages 24 and 15), son, Gabriele, is the middle child and in the in [employer], but is currently home on leave for a few weeks. There are steps at the front door, for which they have a wheelchair ramp. Bedroom and bathroom are accessible on the first floor. She has a transport chair she uses in the community and at home. She also has a shower chair with handle. She has a brace for the Right hand- wears this most of day and at night. She is able to stand-pivotto assist with transfers. Risk of falls: Yes, but denies recent falls. Bowel: she can be incontinent of stool and has urgency. Can have bowel accidents at night, wears depends. She also has intermittent constipation and persistent issues related to gastroparesis. Bladder: she has urinary retention following SCS placement 2 years ago, now has an indwelling foleycatheter. No recent UTIs reported. Examination: General: awake and alert, very pleasant, NAD, no dysarthria. Strength Right Left Shoulder abduction 0 5 Elbow flexion 0 5 Elbow extension 0 5 Wrist extension 0 5 Hip flexion 0 5 Knee flexion 0 5 Knee extension 0 5 Plantarflexion 0 5 Dorsiflexion 0 5 Strength: decreased set designer strength in RUE, slight voluntary movement of the Right first and second fingers noted. . Spasticity Right Left Shoulder 3 0 Elbow flexion 2 0 Elbow extension 1 0 Wrist flexion 2 0 Wrist extension 1+ 0 Finger flexion 3 0 Finger extension 0 0 Hip adduction 0 0 Knee extension 1 0 Knee flexion 0 0 Plantarflexion 1 0 Modified Jesse Scale 0 - No increase in tone 1 - Slight increase in tone (catch and release at end of ROM) 1+ - Slight increase in tone, manifested by a catch, followed by minimal resistance throughout remainder (less than half of ROM) 2 - Marked increase in tone through most of the ROM, but affected part(s) easily moved 3 - Considerable increase in tone; passive movement difficult 4 - Affected part(s) rigid in flexion or extension Spasms observed: RUE: no right upper extremity spasms LUE: no left upper extremity spasms RLE: no right lower extremity spasms LLE: no left lower extremity spasms Timed 25 foot walk: N/A Assistance required: wheelchair and other (brace for Right hand) UNIVERSAL PROTOCOL / SAFETY CHECKLIST Procedure to be Performed: Botulinum Toxin Injections Sign In: A Moment of CARE was completed. Personnel directly involved with the procedure wore the appropriate PPE (Personal Protective Equipment). Special equipment: EMG guided procedure Patient/Surrogate Stated/Verified: PATIENT VERIFIED(optional for EMERGENT procedures): Patient name, Date of , Relevant allergies, and The intended procedure Time Out Communication: Intended patient and procedure match the source documents. Consent documented and matches the intended procedure. No relevant labs, photos, and/or imaging studies were applicable for review. Correct side/site marked and visible. Medications required for procedure verified. No implant(s) inserted. Sign Out: SIGN OUT (optional for EMERGENT procedures): No specimen collected. No instruments, equipment or retained foreign bodies applicable. Post-procedure follow-up management communicated and Plan of Care Visit completed when applicable. Desiree Enriquez APRN.BOZENA UNIVERSAL PROTOCOL / SAFETY CHECKLIST The risks, benefits and alternatives of the procedure were explained. Written Consent Obtained: yes Clinician(s) performing the injections: Desiree Enriquez APRN-BOZENA Incident Commander: Chelsey Hoang LPN The patient was positioned seated in wheelchair. Brand of toxin injected: Botox. After skin preparation with alcohol, a total dose of 300 units were injected as follows: Muscle Limb/Side Dose Guidance Comments Pectoralis Right 50 units EMG 2 sites Bicep RUE 50 units EMG 2 sites Tricep RUE 100 units EMG 3 sites FCR RUE 50 units EMG 1 sites FDP RUE 50 units EMG 1 sites Total Dose: 3000 units discarded. Dilution: 100 units / 1 ml The injections were well tolerated. Minimal bleeding occurred at the injection sites, bandaids applied where needed. Assessment: (G81.10) Spastic hemiparesis affecting dominant side (HCC) (primary encounter diagnosis) (Z74.09, Z78.9) Impaired mobility and ADLs (R26.9) Abnormality of gait (R13.10) Dysphagia, unspecified type 46 yo female with Right sided spastic hemiparesis, onset of which occurred acutely approx. one yearago and has been progressive. Symptoms have also been accompanied by bowel/bladder dysfunction following SCS placement. She was seen in initial evaluation by our team last month and felt to be a good candidate for botoxand is here for 1st round of injections today. Goals of therapy were reviewed, including less stiffness, spasms and discomfort with improved passive range of motion, ease of care, prevention of pressure sores and muscle contractures. I explained that botox will not treat her underlying medical conditions and may not improve function/strength. Also reviewed possible side effects of the injections. Pt. verbalized understanding of above and agrees to proceed. Consent was obtained. Injections were performed in the above distribution, with a total dose of 300 units injected instead of 250 units, as increased tone was noted in the tricep today. She will continue with oral baclofen at current dosing. She has not had much benefit from robaxin and it seems to cause sedation as above. Reviewed that we can stop the robaxin or decrease the dose if it is not helping, but she would liketo try the medicatoin at 1 tablet 3 times a day to see if this reduces side effects. Reviewed the importance of ongoing therapy and of regular streching and exercise. She is frustrated with local thrapy as above. Reviewed the utiliyt of a PT/OT evaluation at [place],which could be scheduled the same day as her next botox appointment. Also suggested an FERRULER evaluation in light of her ongoing dysphagia. She is agreeable to this, so orders placed today and will ask scheduling to assist with arranging OVs. Plan: 1. Repeat botox injections in 3 months, same distribution, total dose of 300-350 units. Injections performed in wheelchair. 2. Regular stretching and exercise encouraged. PT/OT/FERRULER orders placed and evals to be scheduled for same day as next botox injections. 3. Continue baclofen 20 mg BID. Pt. will try robaxin at 500 mg TID dosing. 4. Follow-up: repeat botox in 3 months as above. F/u VV to assess outcome of injections on 12/08/21at 230 pm- Alan. Pt. and her family are aware to contact the office in the meantime with any questions or concerns. Time spent with patient: 50 min. Desiree Enriquez APRN.CNP November 14, 2021 1:44 PM documented in this encounterBerger Hospital09-09-2022 History of Present illness Narrative* Mauro Mi, RT(R) - 10/27/2021 9:00 AM EDT Radiology Service Progress Note PATIENT NAME: Jessica Gutierrez DATE OF SERVICE: October 27, 2021 TIME: 10:47 AM PATIENT IDENTITY VERIFICATION COMPLETED USING TWO (2) IDENTIFIERS: Name and Date of confirmedby patient verbally and Name and Date of confirmed by identification band. FALL SCREENING: Has the patient had 2 falls in the last year or 1 fall with injury or currently using an Ambulatory Assistive Device (Walker, Cane, Wheelchair, Crutches, etc.)? No PATIENT GENDER DATA: Female. status: : No status: NO. PATIENT RELEVANT IMPLANT DATA REVIEWED: Yes BSX SCS RADIOLOGY DEPARTMENT: MR; Exam(s) Completed: Head: Multiple Sclerosis Spine: Cervical spine and Thoracic spine PERIPHERAL IV DATA: Not applicable SIGNED BY: RT Puja(R) October 27, 2021 10:47 AM documented in this encounterBerger Hospital09-02-2022 History of Present illness Narrative* Frank Dillon MD - 10/20/2021 12:38 PM EDT Pt left without being seen. documented in this encounterBerger Hospital09-02-2022 History of Present illness Narrative* Urszula Sood MD - 10/20/2021 9:07 AM EDT Consultation requested by Dr. Hassan for an opinion regarding autoimmune disease . My final recommendations will be communicated back to the requesting physician by way of shared medical record or letter via US mail Referring provider: Jose Hsasan MD PCP: Francesco Quinteros MD, MD HPI: In 2016, patient was at work as a associate director of nursing, when she felt knife stabbing in her eye and fell to the floor. She was diagnosed with R eye uveitis. She saw Dr. Nieto in [place]. Two week after, she came to [facility] to see Dr. Mitchell, who confirmed diagnosis. She was treated with several different eye drops. For 6 months, eye pain persisted with vision worsening in both eyes. Started seeing another physician, who began steroid injections in to R eye, which caused glaucoma s/p surgical intervention Mar 2017. She continued to use ophthalmic drops and vision worsened, causing her to change jobs In Sep 2020. She has poor vision in her L eye and blind in R eye. She has seen a graphics software engineer starting 3 yearsprior for work-up, which was all negative. No medications were started. About one year prior, patient was making breakfast and started having vertigo with inability to sit upright. She continued to have nausea and emesis. At this point, her R arm had numbness. She went to the ER in [place], where was admitted for 2 days for stroke-like symptoms. She did not receive a LP at this time. She was discharged with meclizine and follow-up outpatient. She was re-admitted for L leg numbness. Now, patient is unable to move R half of body, but L side is mobile. Over the last 2 months, she noticed symptoms in her L arm. She was told she did not have a stroke, however, unable to complete MRI due to contrast allergy. April 2021 in [facility], she received a spinal tap, which was wnl. She follows with tower helper, last visit 1 year prior. She has tried physical therapy and pain medications. At the beginning of September, F physician completing work-up for transverse myelitis. She notes mouth sores on lips usually as well as under tongue. They are painful and occur a few times/month. She has had them for her entire life. Denies genital sores, hearing loss, chest pain, dyspnea. Endorses dyspnea at night, mainly orthopnea. She takes Breo for this reason, not for asthma. She had a pain stimulator put in for back pain and L leg pain Sep 2020. She fell down basement stairs and hurt her L leg. She was thought to have early signs of CRPS for which she takes Lyrica QID. The day she received her back pain stimulator, she was in the ER due to inability to urinate. Urinarycatheter was inserted until she saw urologist. Her stimulator was interrogated and wnl. She used tostraight cath herself prior to catheter insertion. Patient has gastroparesis diagnosed by F Dr. Monty Amador. She has tried Lynzest, which is the only way she can have a BM. She also has bowel incontinence, worse over the last year. She denies rashes, joint pain. Notes R leg swelling. She has been 3 times. Her last baby she delivered at home herself as child came unexpectedly. Afterward, she needed a hysterectomy, as she describes uterine prolapse. No history of miscarriages. Family history negative for autoimmune conditions. Daughter with kidney disease at age 19. Mom withcataracts. Dad with dementia. Maternal uncle at age 50 due to blood clots. He was takenoff blood thinner due to dental work and had a PE. Maternal cousin with kidney transplant x2. ACTIVE PROBLEM LIST Hypoglycemic Reaction Pain of Right Sacroiliac Joint Ddd (Degenerative Disc Disease), Lumbosacral Iritis Uveitic Glaucoma of Right Eye, Mild Stage PAST MEDICAL HISTORY Diagnosis Date Bowel incontinence Gastroparesis HTN (hypertension) Hypoglycemic reaction Iritis 02/2016 Migraine Right hemiplegia (HCC) Steroid-induced glaucoma OD Urinary retention Uveitis of right eye Wheelchair bound Allergies: Amitriptyline Hcl, Cabbage, and Gadolinium-Containing Contrast Media Current Outpatient Medications Medication Sig rimegepant (NURTEC ODT) 75 mg disintegrating tablet Take 1 tablet by mouth once daily as needed. potassium chloride (K-TAB) 10 mEq tablet Take 2 tablets by mouth twice daily. fesoterodine (TOVIAZ) 4 mg Tb24 extended release tablet Take 1 tablet by mouth once daily. linaCLOtide (LINZESS) 290 mcg capsule Take 1 capsule by mouth DAILY (6 AM). metoclopramide HCl (REGLAN) 10 mg tablet Take 1 tablet by mouth three times daily before meals. meclizine (ANTIVERT) 25 mg tab Take 1 tablet by mouth every 4 hours as needed (for dizziness.). ascorbic acid, vitamin C, (VITAMIN C) 500 mg tablet Take 1 tablet by mouth once daily. baclofen (LIORESAL) 20 mg tablet Take 1 tablet by mouth twice daily. pregabalin (LYRICA) 150 mg capsule Take 1 capsule by mouth four times daily for 180 days. methocarbamol (ROBAXIN) 500 mg tablet Take 1 tablet by mouth at bedtime x 4 days, then increase to 2 tablets by mouth at bedtime x 4 days, then increase to 1 tablet in the morning and 2 tablets by mouth at bedtime OR 1 tablet by mouth three times a day as tolerated. clopidogrel (PLAVIX) 75 mg tablet clopidogrel 75 mg Tab Refills(s) 0 Start Date: 06/01/21 Status: Ordered desvenlafaxine 100 mg Tb24 Take 100 mg by mouth. diclofenac, EC, (VOLTAREN) 75 mg EC tablet Take by mouth. docusate sodium (COLACE) 100 mg capsule Take by mouth. famotidine (PEPCID) 40 mg tablet Take 40 mg by mouth. fluticasone-vilanterol (BREO ELLIPTA) 100-25 mcg/dose inhaler INHALE 1 PUFF BY MOUTH ONCE DAILY furosemide (LASIX) 20 mg tablet Take by mouth. OXcarbazepine (TRILEPTAL) 300 mg tablet TAKE 1 AND 1/2 - 2 TABLETS BY MOUTH EVERYDAY QUEtiapine (SEROQUEL) 100 mg tablet TAKE 1 TABLET BY MOUTH EVERYDAY AT BEDTIME losartan (COZAAR) 25 mg tablet Take 25 mg by mouth once daily. SUMAtriptan (IMITREX) 100 mg tablet Take 100 mg by mouth as needed. hyoscyamine sublingual (LEVSIN SL) 0.125 mg subl Dissolve 0.125 mg under the tongue as needed. pantoprazole DR (PROTONIX) 40 mg tablet Take 1 tablet by mouth once daily. Current Facility-Administered Medications Medication Dose Route Frequency tropicamide 1 % 1 Drop (MYDRIACYL) 1 Drop BOTH EYES As Directed FAMILY HISTORY Problem Relation Age of Onset Stroke Mother Cancer Mother Heart Mother COPD GI Mother Diverticulitis Hypertension Father Arthritis Father Diabetes Father Rheumatologic disease Father Cataract Maternal Grandmother Cataract Maternal Grandfather Cataract Paternal Grandmother Cataract Paternal Grandfather Rheumatologic disease Paternal Aunt Social History Tobacco Use Smoking status: Never Smokeless tobacco: Never Substance Use Topics Alcohol use: No Drug use: No Review of Systems CONSTITUTION: Positive for: Recent weight change Negative for: Fever HEENT: Positive for: Mouth sores and Dry mouth Negative for: Nosebleeds and Trouble swallowing RESPIRATORY: Negative for: Cough, Shortness of breath and Pain with breathing GASTROINTESTINAL: Positive for: Heartburn and Abdominal pain Negative for: Melena and Diarrhea MUSCULOSKELETAL: Positive for: Arthralgias, Myalgias, Muscle weakness and Morning Joint Stiffness Negative for: Joint swelling NEUROLOGICAL: Positive for: Headaches, Numbness and Memory loss SKIN: Negative for: Rash, Skin changes, Hair loss and Nail changes EYES: Positive for: Eye pain and Visual disturbance Negative for: Eye redness and Eye dryness CARDIOVASCULAR: Positive for: Leg swelling Negative for: Chest pain GENITOURINARY: Negative for: Dysuria and Hematuria HEMATOLOGIC/LYMPHATIC: Positive for: Swollen glands PHYSICAL EXAM General Appearance: WD/WN, NAD. Appropriate grooming. Vitals: Blood pressure 131/78, pulse 85, temperature 36.3 C (97.3 F), temperature source Temporal. SKIN: warm and dry, no rash, normal turgor EYES: EOMI, PERRL, no conjunctival injection or icterus HEENT: Normal hair distribution, moist mouth, no glossitis, own teeth, no salivary gland swelling, neck supple w/o masses, normal temporal artery pulsations, non-tender. LUNGS: clear to perc/auscultation. Good respiratory effort. HEART: RRR, Nl S1,S2 PULSES:symmetrical JOINTS REVIEW: no synovitis NEURO: 0/5 strength on R side, flicker of movement in R index finger and thumb. Mental Status: Appropriate mood and affect. Alert and oriented x 3. GAIT: Wheelchair bound, unable to ambulate CRANIAL NERVES: II: PERRLA III, IV, : EOMs intact V: facial sensation intact VII: R eye ptosis, smile symmetric, unable to raise R eyebrow fully VIII: Hearing intact bilaterally IX, X: Palate elevates symmetrically XI: Shoulder shrug intact on L side, unable to move shoulder on R side XII: Tongue protrudes midline and symmetric TONE: normal on left side, diminished tone on R upper and lower extremity SENSORY: intact to fine touch on L side. Diminished light touch sensation on R upper extremity and R lower extremity below knee. MENTAL STATUS: alert and oriented x 3 REFLEXES: 2+ in biceps, triceps, brachioradialis, knee jerks, ankle jerks on left side. 1+ R biceps, triceps, 0+ R brachioradialis, 1+ R knee jerk, ankle jerk (G81.11) Spastic hemiplegia of right dominant side due to noncerebrovascular etiology (HCC) (primary encounter diagnosis) (J84.9) ILD (interstitial lung disease) ([facility]) (H20.9) Uveitis (K13.79) Recurrent mouth ulceration Ms. Jessica Gutierrez is a 46-year-old with history of iritis in the past treated with ocular steroid injection not sure if she also had retinal vasculitis but her fluorescein angiogram was negative. This has led to vision impairment in her right side has also affected the left side of her history hasseen Dr. Tello in the past in 2017 but has not followed with her lately. 1 year ago she developed right-sided right hemiplegia . MRI of the brain shows a single non specific lesion abbuting the ventricle, MRI of the cervical and thoracic cord show no lesions. Review of system was positive for recurrent mouth ulcers. She also had shortness of breath. CSF April 2021 revealed glucose of 79 protein of 22 and no cells. She had a normal IgG index. Negative infectious work-up CT scan of the chest showed possible interstitial lung disease Her evaluation for uveitis in the past was negative for autoimmune serology except atypical ANCA Differential diagnosis include inflammatory conditions such as sarcoidosis giving her possible interstitial lung disease and iritis/Behcet giving the recurrent oral ulcers and iritis in the past but no evidence of DVT or vascular disease, no skin disease. No neurologic Disease in the family however we will keep in mind Retinal vasculopathy with cerebralleukodystrophy if work-up is unrevealing. I will await repeat MRI. She needs to see pulmonary we will have her see our colleagues in ophthalmology again. Repeat the blood test to include ANCA as well Office Visit on 10/20/21 ANTI NEUTRO CYTO AB C-REACTIVE PROTEIN (CRP) SED RATE WESTERGREN CBC + DIFF COMP METABOLIC PANEL VAHE/ANGIOTENSIN BLD CONSULT TO RHEUM/IMMUN DISEASE CONSULT TO PULMONARY MEDICINE CONSULT TO OPHTHALMOLOGY Amount of time: 130 Included: [facility], multiple MRI scans, CT scans, PET scans, discussion with otherproviders, and abstracted the information into the electronic medical record. 130 minutes. This service is separate and distinguished from the related E/M service noted above Primary Code: 02936 = 30-60 minutes, Add on Code: 97053 = additional 15-30 minutes Urszula Lilly MD documented in this encounterBerger Hospital09-01-2022 Miscellaneous Notes* Telephone Encounter - Justina Fuentes MD - 10/19/2021 11:10 AM EDT Luis M Bledsoe, The foot brace is called an ankle-foot orthosis . We have not had good luck with getting insuranceto cover it, but it can be purchased at any medical equipment store, some pharmacies, and [employer]. Dr. Sameer Aguilera documented in this encounterBerger Hospital08-26-2022 Miscellaneous Notes* Addendum Note - Justina Fuentes MD - 10/13/2021 10:23 AM EDTAddended by: JUSTINA FUENTES on: 10/13/2021 10:23 AM Modules accepted: Orders * Addendum Note - Wilfrido Esteban - 10/13/2021 9:32 AM EDTAddended by: WILFRIDO ESTEBAN on: 10/13/2021 09:32 AM Modules accepted: Orders * Telephone Encounter - Wilfrido Esteban - 10/13/2021 9:31 AM EDT Patient called and no answer; message left for call back with contact information. Wilfrido Esteban RN, BSN * Telephone Encounter - Alba Mendoza - 10/12/2021 2:01 PM EDT (home) Order being requested: Patient called requesting Dr. Fuentes take over her [facility] [place]. If agreed upon, please send to [id number] [place] [address] [address] [phone] [place] [id number] Fuentes documented in this encounterBerger Hospital08-25-2022 Miscellaneous Notes* Telephone Encounter - Trupti Montenegro - 10/12/2021 9:25 AM EDT Received outside medical records from [facility] that have been scanned in to patients chart. documented in this encounterBerger Hospital08-19-2022 History of Present illness Narrative* RT Zulema(R) - 10/06/2021 12:30 PM EDT Radiology Service Progress Note PATIENT NAME: Jessica Gutierrez DATE OF SERVICE: October 06, 2021 TIME: 1:20 PM PATIENT IDENTITY VERIFICATION COMPLETED USING TWO (2) IDENTIFIERS: Name and Date of confirmedby patient verbally and Name and Date of confirmed by identification band. FALL SCREENING: Has the patient had 2 falls in the last year or 1 fall with injury or currently using an Ambulatory Assistive Device (Walker, Cane, Wheelchair, Crutches, etc.)? No PATIENT GENDER DATA: Female. status: : No status: NO. PATIENT RELEVANT IMPLANT DATA REVIEWED: Yes RADIOLOGY DEPARTMENT: CT; Exam(s) Completed: Chest PERIPHERAL IV DATA: Not applicable SIGNED BY: RT Zulema(Belkis) October 06, 2021 1:20 PM documented in this encounterBerger Hospital08-05-2022 Instructions* Patient Instructions* Agustina De Jesus MD - 09/22/2021 8:32 AM EDT Plan: - Please have additional labs completed today - repeat MRI of brain, cervical spine, thoracic spine - CT scan of chest - OCT eye scan - Referral to Rheumatology - Referral to Neuro-Ophthalmology - Return visit in 1 month following completion of work-up documented in this encounterBerger Hospital08-05-2022 History of Present illness Narrative* Jose Hassan MD - 09/22/2021 7:00 AM EDT Images from the original note were not included. [facility] FOR MULTIPLE SCLEROSIS NEW PATIENT EVALUATION/CONSULTATION Referral source: Justina Fuentes [facility] [id number] Also followed by: Patient Care Team: Francesco Quinteros MD as PCP - General (Family Practice) Yimi Nina as Referring (Ophthalmology) Bella Fraser PA-C as NI Referring Team Justina Fuentes MD ([facility] Neurology) Dr. Dinorah Vazquez (local Neurologist- [facility], [place], [place]) PRINCIPAL NEUROLOGIC DIAGNOSIS: suspected myelitis DISEASE SUMMARY Date of onset: October 162020 Date of diagnosis of MS: NA Disease course at onset: NA Current disease course: NA Previous disease therapies: none Current disease therapy: none Most recent MRI brain: 04/10/2021 Most recent MRI cervical spine: 12/12/2020 Most recent MRI thoracic spine: 02/03/2021 CSF: opening pressure 21.5, IgG index 1.0, 0 CSF-specific oligoclonal bands, 0 WBC, protein 27, glucose 79 (04/19/2021) JCV serology result and date: not assessed HISTORY OF ILLNESS: An opinion on this 46 year old right handed woman was requested by the referring physician for a second opinion on neurological symptoms. The patient was accompanied by her and friend. Previous records (physician notes, laboratory reports, and radiology reports) and imaging studies were reviewed and summarized. My recommendations will [facility] Follow-up is expected to be with me at the [facility]. Ms. Gutierrez first experienced onset of neurologic symptoms in 2016 when she had painful loss of vision OD. She reports diagnosis of uveitis, treated with steroid injection course which was c/b glaucoma. Vision from the right eye did not improve to limited to minimal light perception. Subsequently (unsure of timeline), she additionally developed loss of vision in the left eye and intermittent diplopia. She also developed right-sided ptosis which was not initially present with uveitis, however, she is unsure of when this started. Outside ophthalmology records are unavailable for review. 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 This was immediately (<24 hours) followed by urinary retention and bowelincontinence which became chronic, and since that time has had an indwelling márquez. She also reports gradual development of gastroparesis, she was evaluated by Dr. Price in GI in March 2018 with suspected underlying motility disorder exacerbated by stimulator placement. Colonoscopy was conducted and biopsies were obtained showing no signs of inflammatory bowel disease, as there was concern for underlying systemic autoimmune disorder. On October 16, 2020 she developed acute onset of vertigo (room-spinning) with associated n/v. Withinan hour, she developed RUE numbness and weakness. Symptoms progressed from onset to full plegia of arm within an hour. She was evaluated in ER for possible stroke, which was reportedly negative though she notes that initially no MRI was completed due to logistical issues associated with spinal cordstimulator. Local neurologist notes report MRI brain completed and negative for acute ischemia, no spinal cord imaging was completed at the time. She was discharged to home, and over the next 24 hours she developed RLE numbness and weakness. She denies involvement of the face. She felt out of it and vertiginous for several days. She was admitted and ultimately discharged without definitive diagnosis. She had no improvement in symptoms and had residual hemiplegia since that time without significant worsening or improvement. MRI cervical (12/12/20) and thoracic spine (02/03/21) did not show intramedullary lesions or significant stenosis. MRI brain 04/10/21 showed one left frontal periventricular white matter lesion. She endorses frequent oral ulcers estimated at several times per month for many years, denies genital ulcers. She also reports chronic dry cough but denies dyspnea, fevers, chills, rash, dry mouth/eye, or weight loss. She denies dysarthria, dysphagia, facial sensory symptoms, or weakness aside fromright ptosis. She notes left hemibody fatigue but denies weakness or numbness. Family history is negative for multiple sclerosis, neurologic, or autoimmune conditions. Current Symptoms: 1. Spasticity- proximal RUE with painful spasms. Currently on baclofen 20 mg BID- tolerating well but no significant relief. Previously tried tizanidine. 2. RUE hemiplegia: minimal movement of first and second digits, otherwise no significant movement of right hemibody. Wheelchair bound. Continues to work with PT and OT. 3. Bladder: indwelling márquez since 2018 reportedly 2/2 spinal cord stimulator complication 4. Bowel: incontinence since 2018 reportedly 2/2 spinal cord stimulator 5. Vision: no vision OD since 2017 uveitis w/course c/b glaucoma, right ptosis of uncertain duration. Impaired vision OS since 2017 of unclear etiology. Neuro-Qol Functions (higher = better functioning) Neuro-Qol Symptoms (higher = worse symptoms) *NeuroQoL is a multi-domain patient-reported quality of life questionnaire. PHQ-9 Office Visit from 12/20/2015 in Neurosurgery PHQ-9 Score 14 *PHQ-9 is a questionnaire for depressive symptoms, with scores 0-4 indicating none, 5-9 mild, 10-14moderate, 15-19 moderately severe, and 20-27 severe symptoms. PROMIS-10 Office Visit from 12/20/2015 in Neurosurgery Global Physical Health T Score 39.8 Global Mental Health T Score 31.3 0-10 Standard Pain Scale 6 *PROMIS-10 is a patient-reported quality of life measure, typically reported as physical and mentaldomains. Here scores are expressed as percentiles, where the lowest possible score is one, the highest possible score is 99, and 50 is average. PAST HISTORY: PAST MEDICAL HISTORY Diagnosis Date Bowel incontinence Gastroparesis HTN (hypertension) Hypoglycemic reaction Iritis 02/2016 Migraine Right hemiplegia (HCC) Steroid-induced glaucoma OD Urinary retention Uveitis of right eye Wheelchair bound PAST SURGICAL HISTORY Procedure Laterality Date COLONOSCOPY 2018 polyps removed EGD 2018 HYSTERECTOMY HX KNEE ARTHROSCOPY/SURGERY Right Transfusions: None Current Outpatient Medications Medication Sig baclofen (LIORESAL) 20 mg tablet Take by mouth. clopidogrel (PLAVIX) 75 mg tablet clopidogrel 75 mg Tab Refills(s) 0 Start Date: 06/01/21 Status: Ordered desvenlafaxine 100 mg Tb24 Take 100 mg by mouth. diclofenac, EC, (VOLTAREN) 75 mg EC tablet Take by mouth. docusate sodium (COLACE) 100 mg capsule Take by mouth. famotidine (PEPCID) 40 mg tablet Take 40 mg by mouth. fluticasone-vilanterol (BREO ELLIPTA) 100-25 mcg/dose inhaler INHALE 1 PUFF BY MOUTH ONCE DAILY furosemide (LASIX) 20 mg tablet Take by mouth. OXcarbazepine (TRILEPTAL) 300 mg tablet TAKE 1 AND 1/2 - 2 TABLETS BY MOUTH EVERYDAY QUEtiapine (SEROQUEL) 100 mg tablet TAKE 1 TABLET BY MOUTH EVERYDAY AT BEDTIME rimegepant (NURTEC ODT) 75 mg disintegrating tablet Take by mouth. losartan (COZAAR) 50 mg tablet Take 25 mg by mouth. pregabalin (LYRICA) 150 mg capsule Take 150 mg by mouth. Ranitidine HCl 300 mg capsule Take 300 mg by mouth twice daily. Pregabalin (LYRICA) 200 mg capsule Take 200 mg by mouth three times daily. losartan (COZAAR) 25 mg tablet Take 25 mg by mouth once daily. amitriptyline (ELAVIL) 50 mg tablet Take 50 mg by mouth daily at bedtime. naproxen (NAPROSYN) 500 mg tablet Take 500 mg by mouth as needed. ondansetron (ZOFRAN) 4 mg tablet Take 4 mg by mouth as needed. SUMAtriptan (IMITREX) 100 mg tablet Take 100 mg by mouth as needed. eletriptan (RELPAX) 40 mg tablet Take 40 mg by mouth as needed. may repeat in 2 hours if necessary hyoscyamine sublingual (LEVSIN SL) 0.125 mg subl Dissolve 0.125 mg under the tongue as needed. bimatoprost (LUMIGAN OPHTHALMIC) Use in eyes daily at bedtime. Difluprednate (DUREZOL) 0.05 % drop Use in both eyes twice daily. loteprednol etabonate (LOTEMAX) 0.5 % eye ointment daily at bedtime. lactulose (CONSTULOSE) 200 g by RECTAL route three times daily. linaclotide (LINZESS) 145 mcg cap Take by mouth once daily. polyethylene glycol 3350 (PURELAX ORAL) Take by mouth once daily. pantoprazole DR (PROTONIX) 40 mg tablet Take 1 tablet by mouth once daily. desvenlafaxine ER (PRISTIQ) 50 mg 24 hr tablet Take 50 mg by mouth once daily. No current facility-administered medications for this visit. ALLERGIES Allergen Reactions Cabbage Vomiting Gadolinium-Containi* Anaphylaxis During MRI in 2016 of lumbar spine, she developed throat swelling following administration of gadolinium and was treated with epinephrine. Social History Tobacco Use Smoking status: Never Smoker Smokeless tobacco: Never Used Has 3 children Marital Status: FAMILY HISTORY Problem Relation Age of Onset Hypertension Father Arthritis Father Diabetes Father Stroke Mother Cancer Mother Heart Mother COPD GI Mother Diverticulitis Cataract Maternal Grandmother Cataract Maternal Grandfather Cataract Paternal Grandmother Cataract Paternal Grandfather REVIEW OF SYSTEMS: Comprehensive review of systems otherwise was negative aside from HPI, including constitutional, head and neck, cardiovascular, pulmonary, gastrointestinal, endocrine, urologic, reproductive, rheumatic, hematologic, immunologic, dermatologic, and psychiatric. PHYSICAL EXAM: BP 119/56 Pulse 79 Ht 165.1 cm (5' 5 ) Wt 90.7 kg (200 lb) BMI 33.28 kg/m Hair, skin, nails, and joints were normal. Neck was supple without Lhermitte's phenomenon. Normal work of breathing on room air. There was no peripheral edema. The patient was alert and oriented to person, place, and time with normal language, attention and concentration, recent and remote memory, praxis, and intellectual function. Affect was normal. The patient did not appear depressed. Visual acuity to near card was as follows: OD= NLP OS= 20/100 (without correction) Ocular ductions were full without nystagmus, aside from right upward gaze deficit Right-sided ptosis present. Facial sensation was normal. Muscles of mastication and facial expression moved normally. Hearing was intact to finger rub bilaterally. Palatal movements were normal. Sternocleidomastoid and trapezius power were normal. Tongue movements were normal. There was no dysarthria. Motor Examination: Right Upper Extremity: Left Upper Extremity: Deltoid 0/5 Deltoid 5/5 Biceps 0/5 Biceps 5/5 Triceps 0/5 Triceps 5/5 Wrist extensors 0/5 Wrist extensors 5/5 Wrist flexors 0/5 Wrist flexors 5/5 Dorsal interossei 0/5 Dorsal interossei 5/5 Abductor pollicis 0/5 Abductor pollicis 5/5 Finger flexion 2/5 Tone (Jesse scale) 2 Tone (Jesse scale) 0 RUE proximal spasticity Right Lower Extremity: Left Lower Extremity: Hip flexors 1/5 Hip flexors 5/5 Hip extensors 0/5 Hip extensors 5/5 Knee flexors 0/5 Knee flexors 5/5 Knee extensors 0/5 Knee extensors 5/5 Dorsiflexors 0/5 Dorsiflexors 5/5 Plantarflexors 0/5 Plantarflexors 5/5 Toe extensors 0/5 Toe extensors 5/5 Toe flexors 0/5 Toe flexors 5/5 Tone (Jesse scale) 0 Tone (Jesse scale) 0 Reflexes: brachioradialis +++ brachioradialis ++ biceps +++ biceps ++ triceps +++ triceps ++ patellar +++ patellar +++ Achilles +++ Achilles ++ clonus absent clonus absent plantar response down plantar response down Coordination: RUE FNF and FLORINA intact without dysmetria or ataxia. Sensory examination: Diminished to all modalities throughout right hemibody Patient non-ambulatory REVIEW OF OUTSIDE RECORDS: CSF testing 04/19/2021 Culture: negative Fungal culture: negative Labs 06/15/2021: Anti-cardiolipin: negative IgG, IgM, IgA CRP: 1.7 Labs 09/21/2021 VINNIE C3/C4: RF [employer] demyelinating panel Vit B12 Copper Syphilis Cardiolipin Ab REVIEW OF IMAGING STUDIES: I personally reviewed the following images: 04/10/2021 MRI Brain w/o contrast- one left periventricular frontal white matter T2/FLAIR hyperintensity is appreciated. Otherwise, no juxtacortical, posterior fossa, or subcortical lesions are appreciated. 02/03/2021 MRI Thoracic spine w/o contrast: negative for T2/STIR cord signal change or intramedullary lesions. No significant spinal canal stenosis is appreciated. 12/12/2020- MRI Cervical spine w/o contrast: negative for T2/STIR cord signal change or intramedullary lesions. No significant spinal canal stenosis is appreciated. ASSESSMENT: Jessica Gutierrez is a 46 year old woman who presents for evaluation of right hemiplegia of acute onset 1 year ago with significant residual hemiplegia, with history otherwise notable for prior uveitis and bowel/bladder dysfunction presumed secondary to complication from spinal cord stimulator placement. MRI of the brain shows a single non specific lesion abbuting the ventricle, MRI of the cervical and thoracic cord show no lesions. Overall, her presentation best localizes to a lesion within the high cervical spinal cord. However, imaging is negative for significant lesion or stigmata of prior lesion along the neuroaxis. Although imaging was delayed by several months, it would be atypical for com plete resolution especially given the extent of her deficits. Imaging is also limited by her her allergy to contrast. Previous CSF evaluation (also completed months following event) was non-inflammatory. Differential for suspected myelitis remains broad with [employer] demyelinating disorder (NMOSD, MOGAD), systemic autoimmune condition (sarcoidosis, Behcet's disease, Sjogren's), nutritional/toxic myelopathy, and vascular (dAVF) all considerations. We recommend the following work-up to investigate these po ssibilities further. PLAN: - Labs: DOMINGO, VAHE, autoimmune encephalopathy panel (ENS2), IL-2 serum - OCT evaluation - CT Chest r/o sarcoid - Repeat MRI brain, cervical spine, thoracic spine without contrast (including TWIST protocol for spinal series) - Referral to Rheumatology - Referral to Neuro-ophthalmology - Agree with PMR referral - Continued PT/OT Follow-up vist 3 weeks following completion of the above work-up Patient seen and staffed with Dr. Hassan. Agustina De Jesus MD Neuroimmunology Fellow September 22, 2021 9:19 AM [facility] STAFF PHYSICIAN NOTE OF PERSONAL INVOLVEMENT IN CARE I have reviewed the consult note obtained and documented by the fellow and I personally participated in the christopher components. I have discussed the case and management of the patient's care. The following comments revise or confirm relevant christopher components of their note. IMPRESSION: This is a 46 year old woman who presents with a history of uveitis, glaucoma and visionloss in the right eye in 2016 followed by bladder and bowel incontinence after spinal cord stimulator placement (CRP LLE) in 2017, and right mandy-plegia with relatively acute onset in September of 2020.Neurological exam shows vision loss OD and spastic dense right heimplegia. The etiology of right hemiplegia is unclear. I suspect this may tie into the episode of vision losson the right and possibly chronic bladder bowel dysfunction. History of recurrent mucosal ulcers raises the possibility of a more systemic autoimmune process. She will need repeat neuroimaging (brain, cervical, and thoracic). OCT today to look for RNFL loss.Screening blood testing to cover autoimmune etiologies and [employer] auto-antibodies. CT chest to rule out sarcoid. Continue with PT/OT and PMR evaluations. F/U visit in 2-3 weeks. All questions answered. SIGNATURE: Jose Hassan MD PhD DATE of SERVICE: September 22, 2021 documented in this encounterBerger Hospital08-04-2022 Instructions* Patient Instructions* Justina Fuentes MD - 09/21/2021 12:28 PM EDT Ankle-foot orthosis documented in this encounterBerger Hospital08-04-2022 History of Present illness Narrative* Justina Fuentes MD - 09/21/2021 11:30 AM EDT Name: Jessica Gutierrez Age: [age] year old Gender: female Primary Care Provider: Francesco Quinteros MD, MD Chief Complaint:New Patient HPI: Very pleasant 46-year-old woman referred by Dr. Vaz[facility]. She reports that in late September 2020 she had an episode where she felt very unwell and had dizziness with acute vomiting. Within the next couple of hours she developed weakness and numbness of the right arm which over the next 2 days involved her leg as well. She has never had any facial numbness or weakness. She was admitted for a stroke work-up which was completed. MRI was done which just showed nonspecific possible white matter change in the left periventricular frontal region. Due to previous throat swelling with MRI contrast, the patient reports, she cannot have any gadolinium so she has not had any of her testing done with contrast. She also describes that about 5 years ago she developed burning pain in her right thigh and it was very red. Subsequently she was diagnosed with uveitis and then uveitic glaucoma. She reports her vision is quite bad still. She has some abnormal vision also in her left eye and describes that she will sometimes see multiple images of the same object. She also describes urinary retention for the past 2 years which began mostly after a spinal cord stimulator was put in for left leg reflex sympathetic dystrophy. She is now developing some bowel incontinence as well. In terms of other autoimmune screen she does not have any shawl rash, butterfly rash, joint swelling. She does describe frequent canker sores in the mouth. Had the above episode of uveitis. She reports she has been screened for autoimmune disease although I do not see the VINNIE on our system. We willrepeat those tests today. She reports she has had her CSF sampled and it was negative for MS . I do not see previous aqua porin for testing or mog antibody testing. ACTIVE PROBLEM LIST Hypoglycemic Reaction Pain of Right Sacroiliac Joint Ddd (Degenerative Disc Disease), Lumbosacral Iritis Uveitic Glaucoma of Right Eye, Mild Stage PAST MEDICAL HISTORY Diagnosis Date Gastroparesis Hypoglycemic reaction Iritis 02/2016 Medications: Reviewed Current Outpatient Medications on File Prior to Visit Medication Sig baclofen (LIORESAL) 20 mg tablet Take by mouth. clopidogrel (PLAVIX) 75 mg tablet clopidogrel 75 mg Tab Refills(s) 0 Start Date: 06/01/21 Status: Ordered desvenlafaxine 100 mg Tb24 Take 100 mg by mouth. dexAMETHasone (DECADRON) 6 mg tablet Take 6 mg by mouth once daily. diclofenac, EC, (VOLTAREN) 75 mg EC tablet Take by mouth. docusate sodium (COLACE) 100 mg capsule Take by mouth. famotidine (PEPCID) 40 mg tablet Take 40 mg by mouth. fluticasone-vilanterol (BREO ELLIPTA) 100-25 mcg/dose inhaler INHALE 1 PUFF BY MOUTH ONCE DAILY furosemide (LASIX) 20 mg tablet Take by mouth. OXcarbazepine (TRILEPTAL) 300 mg tablet TAKE 1 AND 1/2 - 2 TABLETS BY MOUTH EVERYDAY QUEtiapine (SEROQUEL) 100 mg tablet TAKE 1 TABLET BY MOUTH EVERYDAY AT BEDTIME rimegepant (NURTEC ODT) 75 mg disintegrating tablet Take by mouth. losartan (COZAAR) 50 mg tablet Take 50 mg by mouth. pregabalin (LYRICA) 150 mg capsule Take 150 mg by mouth. Ranitidine HCl 300 mg capsule Take 300 mg by mouth twice daily. Pregabalin (LYRICA) 200 mg capsule Take 200 mg by mouth three times daily. losartan (COZAAR) 25 mg tablet Take 25 mg by mouth once daily. amitriptyline (ELAVIL) 50 mg tablet Take 50 mg by mouth daily at bedtime. naproxen (NAPROSYN) 500 mg tablet Take 500 mg by mouth as needed. ondansetron (ZOFRAN) 4 mg tablet Take 4 mg by mouth as needed. SUMAtriptan (IMITREX) 100 mg tablet Take 100 mg by mouth as needed. eletriptan (RELPAX) 40 mg tablet Take 40 mg by mouth as needed. may repeat in 2 hours if necessary hyoscyamine sublingual (LEVSIN SL) 0.125 mg subl Dissolve 0.125 mg under the tongue as needed. bimatoprost (LUMIGAN OPHTHALMIC) Use in eyes daily at bedtime. Difluprednate (DUREZOL) 0.05 % drop Use in both eyes twice daily. loteprednol etabonate (LOTEMAX) 0.5 % eye ointment daily at bedtime. lactulose (CONSTULOSE) 200 g by RECTAL route three times daily. linaclotide (LINZESS) 145 mcg cap Take by mouth once daily. polyethylene glycol 3350 (PURELAX ORAL) Take by mouth once daily. pantoprazole DR (PROTONIX) 40 mg tablet Take 1 tablet by mouth once daily. desvenlafaxine ER (PRISTIQ) 50 mg 24 hr tablet Take 50 mg by mouth once daily. No current facility-administered medications on file prior to visit. ALLERGIES Allergen Reactions Cabbage Vomiting Gadolinium-Containi* Anaphylaxis FAMILY HISTORY Problem Relation Age of Onset Hypertension Father Arthritis Father Diabetes Father Stroke Mother Cancer Mother Heart Mother COPD GI Mother Diverticulitis Cataract Maternal Grandmother Cataract Maternal Grandfather Cataract Paternal Grandmother Cataract Paternal Grandfather PAST SURGICAL HISTORY Procedure Laterality Date COLONOSCOPY 2018 polyps removed EGD 2018 HYSTERECTOMY HX SOCIAL HISTORY No social history on file. Tobacco Use: Low Risk Smoking Tobacco Use: Never Smoker Smokeless Tobacco Use: Never Used PHYSICAL EXAM 09/21/21 1043 BP: 141/62 Pulse: 83 Neurologic Exam Cognitive and Language: Alert and answered questions appropriately. Language was fluent. Cranial Nerves: Patient has basically no vision perception in the right eye. Left eye is blurry butshe is able to see motion.. Pupils were equal and both reactive to light without RAPD.. Extraocularmovements were full with no diplopia or nystagmus. Facial sensation was normal to light touch in V1to V3. Facial strength was symmetric. Normal hearing grossly bilaterally. Palatal raise was symmetric. Shoulder shrug was symmetric. Tongue protrusion was symmetric with no fasciculations. Right Left Shoulder Abduction: 0 5 Elbow Extension 0 5 Elbow Flexion 0 5 Wrist Extension 0 5 Finger Extension 1 at thumb and index, 0 elsewhere. 5 Finger Abduction 0 5 Right Left Hip Flexion 1 5 Knee Extension 0 5 Knee Flexion 0 5 Dorsiflexion 0 5 Plantar Flexion 0 5 Rest tremor: absent Tone: Increased tone in the right upper and lower extremity. Reflexes: Right Left Brachioradialis 3 2 Biceps 3 2 Triceps 3 2 Patella 3 2 Ankle 2+ 2 Sensory: Light touch sensory level at about C3-C4 Reduced pinprick, temperature, and light touch in the right upper extremity compared to the left. Did not have a clear Brown-S quard syndrome but she did describe some hyperesthesia and burning pain over the left forearm Patient reports longstanding injury to her sensation in her right leg. She reports similar sensation to temperature over the right and left legs, Coordination: Normal finger to nose testing on left.. Patient nonambulatory. Labs: Lab Results Component Value Date WBC 6.28 03/28/2018 HCT 38.4 03/28/2018 MCV 88.1 03/28/2018 PLT 179 03/28/2018 No results found for: HBA1C No results found for: CHOL, HDL, LDL, TG Review of her CSF testing reveals normal glucose, cell count, cultures and fungal smear, no banding Radiology: MR head reviewed. Possible left frontal periventricular T2 hyperintense lesion.no other demyelinating lesions seen. MRI of her cervical spine was also reviewed given her sensory level, close attention was paid to the C2-C5 region without evidence of T2 hyperintensity, myelomalacia. Note is made that she cannot have gadolinium. Also this image was done more than 2 months after the onset of her symptoms. Assessment/Plan: Chart, labs,and relevant images reviewed including MR head and MR spine. 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 46-year-old woman with history of uveitis and some mouth sores presenting with nearly a year long history of right sided weakness, spasticity and reduced sensation. This is in the context of urinary retention that has developed approximately 2 years ago that may have been related to spinal cord stimulator surgery. Her exam is consistent with right hemibody weakness and numbness with some hyperesthesia on the left arm. She also has a history of left leg pain felt to be reflux sympathetic dystrophy. She has a sensory level around c3 to C4. She has clearly brisker reflexes on the right compared to the left. She has no involvement of her face. I feel she likely had transverse myelitis. I will add NMO and anti-MOG to her blood work as well asscreen for a DEONTE, lupus, rheumatoid factor, syphilis. Ideally we would get MRIs with gadolinium but she has had anaphylactic reaction, she feels to MR dye not just CT contrast dye, in the past. I referred her to spasticity at the [facility] [physiatry] as well as neurology at the [facility] to see if there is a role for immunomodulatory therapy. Orders Placed This Encounter VINNIE BY IFA WITH REFLEX Standing Status: Future Number of Occurrences: 1 Standing Expiration Date: 11/21/2021 C4 COMPLEMENT BLD Standing Status: Future Number of Occurrences: 1 Standing Expiration Date: 11/21/2021 C3 COMPLEMENT BLD Standing Status: Future Number of Occurrences: 1 Standing Expiration Date: 11/21/2021 RHEUMATOID FACTOR BL Standing Status: Future Number of Occurrences: 1 Standing Expiration Date: 11/21/2021 AQUAPORIN 4 RECEPTOR AB, IGG BY IFA Standing Status: Future Number of Occurrences: 1 Standing Expiration Date: 11/21/2021 RADIO INSTALLER AUTOMOBILE DEMYELINATING DISEASE EVALUATION, SERUM Standing Status: Future Number of Occurrences: 1 Standing Expiration Date: 11/21/2021 Cardiolipin IgM Ab Standing Status: Future Number of Occurrences: 1 Standing Expiration Date: 11/21/2021 VITAMIN B12 BLOOD Standing Status: Future Number of Occurrences: 1 Standing Expiration Date: 11/21/2021 Scheduling Instructions: In preparation for this test, do not take multivitamins or dietary supplements containing biotin (vitamin B7) for at least 12 hours. Biotin is commonly found in hair, skin, and nail supplements and multivitamins. Tell your doctor if you take supplements containing biotin as part of your medication history. COPPER BLOOD Standing Status: Future Number of Occurrences: 1 Standing Expiration Date: 11/21/2021 SYPHILIS TOTAL W/REFLEX Standing Status: Future Number of Occurrences: 1 Standing Expiration Date: 11/21/2021 CONSULT TO PHYSICAL MEDICINE AND REHABILITATION Standing Status: Future Standing Expiration Date: 09/21/2022 Order Specific Question: Reason for Referral Answer: Spasticity/Stiff person Syndrome/ALS/Cerebral Palsy/Multiple Sclerosis Order Specific Question: Does consulting provider have [facility] Epic access? Answer: Yes CONSULT TO [facility] Standing Status: Future Standing Expiration Date: 09/21/2022 Order Specific Question: Does consulting provider have [facility] Epic access? Answer: Yes No follow-ups on file. This note was dictated using [employer] speech recognition software and may contain some errors that were a result of the program not accurately transcribing what was dictated, despite efforts to make corrections. PROMIS (Patient-Reported Outcomes Measurement Information System) is a set of person-centered measures that evaluates and monitors physical, social, and emotional health. It can be used with the general population and with individuals living with chronic conditions. PROMIS 10: PHYSICAL AND MENTAL HEALTH: PHQ-9 12/20/2015 Score 14 documented in this encounterBerger [facility]07-[facility]22 History of Present illness Narrative* Kentrell Guardado PA-C - 08/30/2021 12:32 PM EDT SPINE SURGERY OUTPATIENT CONSULT SERVICE DATE: 08/30/2021 PCP: Francesco Quinteros MD, MD REFERRING PROVIDER: Bella Fraser PA-C Consult requested for an opinion regarding the evaluation and treatment of spine. My final impression and recommendations will be communicated back to the requesting physician by way of the shared medical record or letter via US mail. SUBJECTIVE Jessica Gutierrez is a 46 year old female presenting with mother. CHIEF COMPLAINT: RUE/RLE hemiparesis HISTORY OF PRESENT ILLNESS: Ms. Gutierrez presents to spine center for evaluation of her RUE and RLE hemiparesis; she was advised to have spine consult regarding her cervical MRI Patient states last September, she was preparing a breakfast when she suddenly became dizzy, began to vomit and developed acute, diffuse, total weakness of her RUE; shortly after the onset she developedacute, diffuse total weakness of her RLE Evaluated in ED, placed in ICU for several days for stroke work-up then d/c home as she did not meet criteria for admission to short term rehab She has seen multiple specialists locally, but has yet to be given an actual diagnosis, they believe she may have had some type of stroke No change in symptoms the past 11 months; she has not regained any additional function in the R UE/LE She is unable to walk, she is able to stand/transfer She has 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 she developed several years ago, also has urinary retention (has márquez catheter placed) since having SCS implanted back in 2018 for work-related low back injury She will experience episodes of bowel incontinence at times, which occurs randomly Currently in outpatient PT, has not worked with OT recently DURATION OF SYMPTOMS: 11 months PAIN EVALUATION 08/30/2021 1208 Pain Level: 8 Pain Location: Back Description: Sharp Duration Units: Years Frequency: Intermittent AMBULATORY STATUS: wheelchair bound ANTIPLATELET OR ANTICOAGULATION STATUS: yes, plavix PREVIOUS CONSERVATIVE TREATMENTS: PT OT PREVIOUS SPINAL SURGERY: SCS placement (2017) ACTIVE PROBLEM LIST Hypoglycemic Reaction Pain of Right Sacroiliac Joint Ddd (Degenerative Disc Disease), Lumbosacral Iritis Uveitic Glaucoma of Right Eye, Mild Stage PAST MEDICAL HISTORY Diagnosis Date Gastroparesis Hypoglycemic reaction Iritis 02/2016 fibromyagia Complex regional pain syndrome Legal blindness PAST SURGICAL HISTORY Procedure Laterality Date COLONOSCOPY 2018 polyps removed EGD 2018 HYSTERECTOMY HX FAMILY HISTORY Problem Relation Age of Onset Hypertension Father Arthritis Father Diabetes Father Stroke Mother Cancer Mother Heart Mother COPD GI Mother Diverticulitis Cataract Maternal Grandmother Cataract Maternal Grandfather Cataract Paternal Grandmother Cataract Paternal Grandfather Social History Tobacco Use Smoking status: Never Smoker Smokeless tobacco: Never Used Substance Use Topics Alcohol use: No Drug use: No ALLERGIES Allergen Reactions Cabbage Vomiting Gadolinium-Containi* Anaphylaxis MEDICATIONS: baclofen (LIORESAL) 20 mg tablet Take by mouth. clopidogrel (PLAVIX) 75 mg tablet clopidogrel 75 mg Tab Refills(s) 0 Start Date: 06/01/21 Status: Ordered desvenlafaxine 100 mg Tb24 Take 100 mg by mouth. diclofenac, EC, (VOLTAREN) 75 mg EC tablet Take by mouth. docusate sodium (COLACE) 100 mg capsule Take by mouth. famotidine (PEPCID) 40 mg tablet Take 40 mg by mouth. furosemide (LASIX) 20 mg tablet Take by mouth. rimegepant (NURTEC ODT) 75 mg disintegrating tablet Take by mouth. losartan (COZAAR) 50 mg tablet Take 50 mg by mouth. pregabalin (LYRICA) 150 mg capsule Take 150 mg by mouth. dexAMETHasone (DECADRON) 6 mg tablet Take 6 mg by mouth once daily. fluticasone-vilanterol (BREO ELLIPTA) 100-25 mcg/dose inhaler INHALE 1 PUFF BY MOUTH ONCE DAILY OXcarbazepine (TRILEPTAL) 300 mg tablet TAKE 1 AND 1/2 - 2 TABLETS BY MOUTH EVERYDAY QUEtiapine (SEROQUEL) 100 mg tablet TAKE 1 TABLET BY MOUTH EVERYDAY AT BEDTIME Ranitidine HCl 300 mg capsule Take 300 mg by mouth twice daily. Pregabalin (LYRICA) 200 mg capsule Take 200 mg by mouth three times daily. losartan (COZAAR) 25 mg tablet Take 25 mg by mouth once daily. amitriptyline (ELAVIL) 50 mg tablet Take 50 mg by mouth daily at bedtime. naproxen (NAPROSYN) 500 mg tablet Take 500 mg by mouth as needed. ondansetron (ZOFRAN) 4 mg tablet Take 4 mg by mouth as needed. SUMAtriptan (IMITREX) 100 mg tablet Take 100 mg by mouth as needed. eletriptan (RELPAX) 40 mg tablet Take 40 mg by mouth as needed. may repeat in 2 hours if necessary hyoscyamine sublingual (LEVSIN SL) 0.125 mg subl Dissolve 0.125 mg under the tongue as needed. bimatoprost (LUMIGAN OPHTHALMIC) Use in eyes daily at bedtime. Difluprednate (DUREZOL) 0.05 % drop Use in both eyes twice daily. loteprednol etabonate (LOTEMAX) 0.5 % eye ointment daily at bedtime. lactulose (CONSTULOSE) 200 g by RECTAL route three times daily. linaclotide (LINZESS) 145 mcg cap Take by mouth once daily. polyethylene glycol 3350 (PURELAX ORAL) Take by mouth once daily. pantoprazole DR (PROTONIX) 40 mg tablet Take 1 tablet by mouth once daily. desvenlafaxine ER (PRISTIQ) 50 mg 24 hr tablet Take 50 mg by mouth once daily. Patient Entered Questionnaires PROMIS Score Percentiles PROMIS Global Health Scale 12/20/2015 Physical Health Percentile 15 Mental Health Percentile 3 Percentiles provide an indication of how the patient's score ranks in relation to the general population. Higher percentile rankings indicate better function/quality of life. 50th percentile is the average of the general population and indicates half of respondents had a worse score. Depression Screening: PHQ-9 12/20/2015 Score 14 PHQ-9 Self-harm Question 12/20/2015 Thoughts that you would be better off , or of hurting yourself in some way Not at all PHQ-9 Self-Harm (Item 9) response options: 0 Not at all 1 Several days 2 More than half the days 3 Nearly every day PHQ-9 Levels: 0-4 No to mild depression 5-9 Mild depression 10-14 Moderate depression 15-19 Moderately severe depression 20-27 Severe depression OBJECTIVE: PHYSICAL EXAM Ht 165.1 cm (5' 5 ) Wt 90.7 kg (200 lb) BMI 33.28 kg/m GENERAL APPEARANCE: Well nourished, well developed, and no apparent distress. NEURO PSYCH: Patient oriented to person, place, and time. Mood pleasant. Benign affect. MUSCULOSKELETAL VISUAL INSPECTION CERVICAL: WNL THORACIC: WNL LUMBAR: WNL MOTOR: 0/5 RUE/RLE; 5/5 LUE/LLE; she is able to wiggle several fingers SENSORY: diminished sensation RUE/RLE DATA REVIEW: MRI cervical spine: C5/6 right parasagittal to left lateral recess disc extrusion. Migrates inferiorly. C5/6 central left neural foraminal narrowing is present. C6/7 disc diffuse disc bulge present No cervical spine fracture, bone marrow edema, facets are adequate alignment, central canal is patent. MRI thoracic spine: T9/10 there is mild broad-based disc bulge contributing to mild spinal canal stenosis. No significant neural foraminal narrowing ASSESSMENT/PLAN RUE/RLE hemiparesis x 11 months; unclear etiology per patient; limited records for evaluation Cervical and thoracic spine pathology does not explain her current and residual RUE/RLE hemiparesis; cervical spondylosis w/o significant stenosis; spinal cord compression Recommend 2nd opinion with neurology Obtain neurology records from outside specialist The majority of the visit was spent counseling and/or coordinating care for the patient. The patient was counseled regarding RUE/RLE weakness. Total face to face time was 45 minutes. SIGNATURE: Kentrell Guardado PA-C PATIENT NAME: Jessica Gutierrez DATE: August 30, 2021 TIME: 3:33 PM PAGER: documented in this encounterBerger Hospital05-20-2022 History of Present illness Narrative* Rayna Alcazar PA-C - 07/07/2021 10:46 AM EDT Per Triage: Jessica Gutierrez is a 46 year old female that requests evaluation of benign. Per review, they have symptoms of neck into right arm pain. Positive for difficulty walking, numbness and weakness on the right side upper and lower extremities. Trouble with dexterity. Spinal cord stimulator placement 2017 CMT: Physical therapy Muscle relaxants Pain medication Studies (Reports unless indicated) MRI cervical spine: C5/6 right parasagittal to left lateral recess disc extrusion. Migrates inferiorly. C5/6 central left neural foraminal narrowing is present. C6/7 disc diffuse disc bulge present No cervical spine fracture, bone marrow edema, facets are adequate alignment, central canal is patent. MRI thoracic spine T9/10 there is mild broad-based disc bulge contributing to mild spinal canal stenosis. No significant neural foraminal narrowing Disposition: Please schedule with first available surgical ANGELA. Need to determine if arm pain and weakness is associated to disc bulge and foraminal narrowing. Unsure degree of narrowing. * Melissa Falk - 01/11/2021 9:00 AM EST Patient name: Jessica Gutierrez Are you being referred by a [facility] Provider or Pain Management Provider at [facility]? No If answer is YES please schedule directly with surgeon, triage does not need to be completed. Is this a self-referral No If not, who is the Referring Provider : Bella Fraser PA-C Is this a 2nd opinion, have you been offered surgery by another surgeon? No MRI/CT/myelogram within 12 months? Yes If NO , please refer to medical spine or PCP to complete above imaging, triage does not need to be completed If YES, please ask for the name/address of the facility where the MRI/CT/myelogram was completed: [facility] [address] [place] [address] [address] MRI/CT/myelogram viewable in Epic: No If not, please provide [phone] to fax in imaging reports for review. Also, please inform patient to hand carry imaging disc to appointment. XR (spine) within 12 months: No If YES, please ask for the name/address of the facility where the XR was completed: N/A Requested provider (First and Last name): unknown Are you interested in a virtual visit if offered? No 1. Where are you having symptoms related to this visit? Cervical spine, R shoulder, R arm Back pain Yes Leg pain No Arm pain Yes R arm Neck pain No 2. Are you having any of the following symptoms: Difficulty walking Yes Numbness Yes R arm, R leg Weakness Yes R arm, R leg Trouble using your hands? Yes 3. Have you had any injections or physical therapy in the last 12 months? Yes If YES then please ask for the name/address of the facility where the injections and/or physical therapy was completed : Physical Therapy: Home HealthCare - Patient unable to recall Have you tried any other kinds of non-surgical treatments in the last 12 months? (For example: NSAIDS, muscle relaxants, analgesics, oral steroids, Chiropractor, Acupuncture): muscle relaxants, has SCS since 2018 4. Are you currently taking daily prescribed narcotic medications for your current symptoms (For example Oxycodone, Hydrocodone, Tramadol, Morphine, Other)? Yes 5. Have you had previous spinal surgery for this same symptoms? No If YES please ask for the name of facility/address of where the surgery was completed: N/A Additional Comments : [phone] documented in this encounterBerger Hospital03-29-2022 Miscellaneous Notes* Telephone Encounter - Lin Cronin - 05/16/2021 8:37 AM EDT OS NI referral from Dr. Dinorah Vazquez, [facility], [place], [place] DX: migraines & generalized weakness RFV: 2nd opinion Called pt and left VMM for her to call appt center to schedule with first available provider. Was hoping to reach pt to see if she wanted consults with Gen Neuro and Headache or just Gen Neuro. documented in this encounterBerger Hospital11-23-2021 Evaluation + Plan note Future Scheduled Tests Laboratory* Electrolyte Panel 01/10/21 [facility]11-23-2021 Evaluation + Plan note Future Scheduled Tests Laboratory* Electrolyte Panel 01/10/21 [facility] Mini Evaluation + Plan note Future Appointments Appointment Date:08/01/2021 09:30:00 AM Scheduled Provider: Location:[facility] Appointment Type:URO Nurse Visit Future Scheduled Tests Laboratory* Electrolyte Panel 01/10/21 [facility] Evaluation + Plan note Future Appointments Appointment Date:09/04/2021 10:00:00 AM Scheduled Provider: Location:[facility] Appointment Type:URO Nurse Visit Future Scheduled Tests Laboratory* Electrolyte Panel 01/10/21 [facility] evaluation + Plan note Future Appointments Appointment Date:10/03/2021 10:00:00 AM Scheduled Provider: Location:Critical access hospital Appointment Type:URO Nurse Visit Future Scheduled Tests Laboratory* Electrolyte Panel 01/10/21 [facility] Evaluation + Plan note Future Appointments Appointment Date:11/30/2021 01:00:00 PM Scheduled Provider:MARILIA CR PA-C Location:Critical access hospital Appointment Type:URO Office Visit Future Scheduled Tests Laboratory* Electrolyte Panel 01/10/21 [facility] evaluation + Plan note Future Appointments Appointment Date:01/09/2022 02:45:00 PM Scheduled Provider:MARILIA CR PA-C Location:Critical access hospital Appointment Type:URO Office Visit Appointment Date:01/24/2022 12:30:00 PM Scheduled Provider:Remi Quintero MD Location:[facility] Appointment Type:Pain Management - Follow Up (FT) Future Scheduled Tests Laboratory* Electrolyte Panel 01/10/21 [facility] evaluation + Plan note Future Appointments Appointment Date:01/24/2022 12:30:00 PM Scheduled Provider:Remi Quintero MD Location:[facility] Appointment Type:Pain Management - Follow Up (FT) Appointment Date:01/24/2022 01:15:00 PM Scheduled Provider: Location:[facility] Appointment Type:OT 60 (FT) Appointment Date:01/31/2022 08:30:00 AM Scheduled Provider:Axel Garcia Location:Critical access hospital Appointment Type:URO Office Visit Appointment Date:01/31/2022 02:00:00 PM Scheduled Provider: Location:[facility] Appointment Type:OT Re-Eval (FT) Appointment Date:02/08/2022 01:00:00 PM Scheduled Provider: Location:.OCCUPATIONAL Appointment Type:OT 60 (FT) Appointment Date:02/14/2022 10:45:00 AM Scheduled Provider: Location:.OCCUPATIONAL Appointment Type:OT Re-Eval (FT) [facility] [place] Evaluation + Plan note Future Appointments Appointment Date:01/31/2022 08:30:00 AM Scheduled Provider:Axel Garcia Location:Critical access hospital Appointment Type:URO Office Visit Appointment Date:01/31/2022 02:00:00 PM Scheduled Provider: Location:[facility] Appointment Type:OT Re-Eval (FT) Appointment Date:02/08/2022 01:00:00 PM Scheduled Provider: Location:.OCCUPATIONAL Appointment Type:OT 60 (FT) Appointment Date:02/14/2022 10:45:00 AM Scheduled Provider: Location:FT[facility]CC[facility] Appointment Type:OT Re-Eval (FT) Appointment Date:04/26/2022 12:45:00 PM Scheduled Provider:Remi Quintero MD Location:.[facility] [place] App[facility]ment [facility]ments Appointment Date:06/13/2022 08:45:00 AM Scheduled Provider: Location:.[place] Appointment Type:PT 60 (FT) Appointment Date:06/13/2022 10:00:00 AM Scheduled Provider: Location:FT.[facility]CC[facility] Appointment Type:OT Re-Eval (FT) Appointment Date:06/18/2022 02:00:00 PM Scheduled Provider: Location:.[place] Appointment Type:PT 60 (FT) Appointment Date:06/21/2022 09:00:00 AM Scheduled Provider: Location:.[place] Appointment Type:PT Re-Eval 60 (FT) Appointment Date:06/25/2022 09:45:00 AM Scheduled Provider: Location:.OCCUPATIONAL Appointment Type:OT 60 (FT) Appointment Date:06/25/2022 11:15:00 AM Scheduled Provider: Location:.[place] Appointment Type:PT 60 (FT) Appointment Date:06/27/2022 09:30:00 AM Scheduled Provider: Location:FT.[facility]CCUP[facility] Appointment Type:OT 60 (FT) Appointment Date:06/27/2022 10:30:00 AM Scheduled Provider: Location:[place] Appointment Type:PT 60 (FT) Appointment Date:07/02/2022 08:45:00 AM Scheduled Provider: Location:FT[facility]CCUP[facility] Appointment Type:OT 60 (FT) Appointment Date:07/02/2022 09:45:00 AM Scheduled Provider: Location:[place] Appointment Type:PT 60 (FT) Appointment Date:07/05/2022 12:15:00 PM Scheduled Provider: Location:FT.[facility]CCUP[facility] Appointment Type:OT 60 (FT) Appointment Date:07/05/2022 01:30:00 PM Scheduled Provider: Location:[facility] [place] Appointment Type:PT 60 (FT) Appointment Date:07/11/2022 08:30:00 AM Scheduled Provider: Location:FT.OCCUPATIONAL Appointment Type:OT Re-Eval (FT) Appointment Date:07/11/2022 09:30:00 AM Scheduled Provider: Location:[place] Appointment Type:PT 60 (FT) Appointment Date:07/18/2022 01:00:00 PM Scheduled Provider: Location:FT.[facility]CCUPATIONAL Appointment Type:OT 60 (FT) Appointment Date:07/18/2022 02:00:00 PM Scheduled Provider: Location:[place] Appointment Type:PT Re-Eval 60 (FT) Appointment Date:07/20/2022 11:00:00 AM Scheduled Provider: Location:FT.OCCUPATIONAL Appointment Type:OT 60 (FT) Appointment Date:07/23/2022 10:15:00 AM Scheduled Provider: Location:FT.OCCUPATIONAL Appointment Type:OT 60 (FT) Appointment Date:07/23/2022 11:15:00 AM Scheduled Provider: Location:[place] Appointment Type:PT 60 (FT) Appointment Date:07/25/2022 10:00:00 AM Scheduled Provider: Location:FT.OCCUPATIONAL Appointment Type:OT 60 (FT) Appointment Date:07/25/2022 11:15:00 AM Scheduled Provider: Location:[place] Appointment Type:PT 60 (FT) Appointment Date:07/30/2022 12:45:00 PM Scheduled Provider: Location:FT[facility]OCCUPATIONAL Appointment Type:OT 60 (FT) Appointment Date:07/30/2022 02:00:00 PM Scheduled Provider: Location:[facility] [place] Appointment Type:PT 60 (FT) Appointment Date:08/01/2022 01:15:00 PM Scheduled Provider: Location:FT[facility]CCUPATIONAL Appointment Type:OT 60 (FT) Appointment Date:08/01/2022 02:30:00 PM Scheduled Provider: Location:[facility] [place] Appointment Type:PT 60 (FT) Appointment Date:08/06/2022 10:15:00 AM Scheduled Provider: Location:FT.OCCUPATIONAL Appointment Type:OT 60 (FT) Appointment Date:08/06/2022 11:15:00 AM Scheduled Provider: [place] Appointment Type:PT 60 (FT) Appointment Date:08/08/2022 10:00:00 AM Scheduled Provider: Location:FT.OCCUPATIONAL Appointment Type:OT 60 (FT) Appointment Date:08/08/2022 11:15:00 AM Scheduled Provider: [place] Appointment Type:PT 60 (FT) Appointment Date:08/13/2022 09:30:00 AM Scheduled Provider: Location:FT.OCCUPATIONAL Appointment Type:OT 60 (FT) Appointment Date:08/13/2022 10:45:00 AM Scheduled Provider: [place] Appointment Type:PT 60 (FT) Appointment Date:08/15/2022 12:30:00 PM Scheduled Provider: Location:FT.OCCUPATIONAL Appointment Type:OT Re-Eval (FT) Appointment Date:08/15/2022 02:00:00 PM Scheduled Provider: [place] Appointment Type:PT Re-Eval 60 (FT) [facility] Mini Evaluation + Plan note Future Appointments Appointment Date:09/19/2022 10:00:00 AM Scheduled Provider: Location:FT.OCCUPATIONAL Appointment Type:OT 60 (FT) Appointment Date:09/19/2022 11:00:00 AM Scheduled Provider: [place] Appointment Type:PT 60 (FT) Appointment Date:09/24/2022 12:45:00 PM Scheduled Provider: Location:FT.OCCUPATIONAL Appointment Type:OT 60 (FT) Appointment Date:09/24/2022 01:45:00 PM Scheduled Provider: [place] Appointment Type:PT 60 (FT) Appointment Date:09/26/2022 01:00:00 PM Scheduled Provider: Location:FT.OCCUPATIONAL Appointment Type:OT 60 (FT) Appointment Date:09/26/2022 02:00:00 PM Scheduled Provider: [place] Appointment Type:PT 60 (FT) Appointment Date:10/01/2022 08:45:00 AM Scheduled Provider: [place] Appointment Type:PT 60 (FT) Appointment Date:10/01/2022 09:45:00 AM Scheduled Provider: Location:FT.OCCUPATIONAL Appointment Type:OT 60 (FT) Appointment Date:10/03/2022 10:00:00 AM Scheduled Provider: Location:FT.OCCUPATIONAL Appointment Type:OT 60 (FT) Appointment Date:10/03/2022 11:15:00 AM Scheduled Provider: [place] Appointment Type:PT 60 (FT) Appointment Date:10/08/2022 10:00:00 AM Scheduled Provider: Location:FT.OCCUPATIONAL Appointment Type:OT 60 (FT) Appointment Date:10/08/2022 11:00:00 AM Scheduled Provider: [place] Appointment Type:PT 60 (FT) Appointment Date:10/10/2022 09:30:00 AM Scheduled Provider: [place] Appointment Type:PT 60 (FT) Appointment Date:10/10/2022 10:45:00 AM Scheduled Provider: Location:.OCCUPATIONAL Appointment Type:OT 60 (FT) Appointment Date:10/11/2022 10:15:00 AM Scheduled Provider:MARILIA CR PA-C Location:Critical access hospital Appointment Type:URO Office Visit Appointment Date:10/15/2022 08:45:00 AM Scheduled Provider: [place] Appointment Type:PT Re-Eval 60 (FT) Appointment Date:10/15/2022 10:00:00 AM Scheduled Provider: Location:FT.OCCUPATIONAL Appointment Type:OT Re-Eval (FT) Appointment Date:10/17/2022 08:45:00 AM Scheduled Provider: [place] Appointment Type:PT 60 (FT) Appointment Date:10/17/2022 10:00:00 AM Scheduled Provider: Location:FT.OCCUPATIONAL Appointment Type:OT 60 (FT) Appointment Date:10/24/2022 10:00:00 AM Scheduled Provider: Location:FT.OCCUPATIONAL Appointment Type:OT 60 (FT) Appointment Date:10/24/2022 11:15:00 AM Scheduled Provider: [place] Appointment Type:PT 60 (FT) Appointment Date:10/29/2022 10:00:00 AM Scheduled Provider: Location:FT.OCCUPATIONAL Appointment Type:OT 60 (FT) Appointment Date:10/29/2022 11:15:00 AM Scheduled Provider: [place] Appointment Type:PT 60 (FT) Appointment Date:10/31/2022 01:30:00 PM Scheduled Provider: Location:FT.OCCUPATIONAL Appointment Type:OT 60 (FT) Appointment Date:10/31/2022 02:30:00 PM Scheduled Provider: [place] Appointment Type:PT 60 (FT) Appointment Date:11/05/2022 08:45:00 AM Scheduled Provider: [place] Appointment Type:PT Re-Eval 60 (FT) Appointment Date:11/05/2022 10:00:00 AM Scheduled Provider: Location:FT.OCCUPATIONAL Appointment Type:OT Re-Eval (FT) Diagnostic Tests Pending * Electrolyte Panel 09/18/22 [facility] Evaluation + Plan note Future Appointments Appointment Date:10/15/2022 08:45:00 AM Scheduled Provider: [place] Appointment Type:PT Re-Eval 60 (FT) Appointment Date:10/15/2022 10:00:00 AM Scheduled Provider: Location:FT.OCCUPATIONAL Appointment Type:OT Re-Eval (FT) Appointment Date:10/17/2022 08:45:00 AM Scheduled Provider: [place] Appointment Type:PT 60 (FT) Appointment Date:10/17/2022 10:00:00 AM Scheduled Provider: Location:FT.OCCUPATIONAL Appointment Type:OT 60 (FT) Appointment Date:10/24/2022 10:00:00 AM Scheduled Provider: Location:FT.OCCUPATIONAL Appointment Type:OT 60 (FT) Appointment Date:10/24/2022 11:15:00 AM Scheduled Provider: [place] Appointment Type:PT 60 (FT) Appointment Date:10/29/2022 10:00:00 AM Scheduled Provider: Location:.OCCUPATIONAL Appointment Type:OT 60 (FT) Appointment Date:10/29/2022 11:15:00 AM Scheduled Provider: [place] Appointment Type:PT 60 (FT) Appointment Date:10/30/2022 09:30:00 AM Scheduled Provider: Location:Critical access hospital Appointment Type:URO Nurse Visit Appointment Date:10/31/2022 01:30:00 PM Scheduled Provider: Location:FT.OCCUPATIONAL Appointment Type:OT 60 (FT) Appointment Date:10/31/2022 02:30:00 PM Scheduled Provider: [place] Appointment Type:PT 60 (FT) Appointment Date:11/05/2022 08:45:00 AM Scheduled Provider: [place] Appointment Type:PT Re-Eval 60 (FT) Appointment Date:11/05/2022 10:00:00 AM Scheduled Provider: Location:.OCCUPATIONAL Appointment Type:OT Re-Eval (FT) [facility] Evaluation + Plan note Future Appointments Appointment Date:10/31/2022 02:30:00 PM Scheduled Provider: [place] Appointment Type:PT 60 (FT) Appointment Date:11/05/2022 08:45:00 AM Scheduled Provider: [place] Appointment Type:PT Re-Eval 60 (FT) Appointment Date:11/05/2022 10:00:00 AM Scheduled Provider: Location:.OCCUPATIONAL Appointment Type:OT Re-Eval (FT) Appointment Date:11/20/2022 09:30:00 AM Scheduled Provider: Location:Critical access hospital Appointment Type:URO Nurse Visit [facility] Evaluation + Plan note Future Appointments Appointment Date:11/21/2022 09:00:00 AM Scheduled Provider: Location:.OCCUPATIONAL Appointment Type:OT 60 (FT) Appointment Date:11/26/2022 08:00:00 AM Scheduled Provider: Location:.OCCUPATIONAL Appointment Type:OT 60 (FT) Appointment Date:11/28/2022 08:00:00 AM Scheduled Provider: Location:FT.OCCUPATIONAL Appointment Type:OT 60 (FT) Appointment Date:12/03/2022 09:30:00 AM Scheduled Provider: Location:FT.OCCUPATIONAL Appointment Type:OT 60 (FT) Appointment Date:12/05/2022 08:00:00 AM Scheduled Provider: Location:FT.OCCUPATIONAL Appointment Type:OT Re-Eval (FT) Appointment Date:12/10/2022 08:45:00 AM Scheduled Provider: Location:FT.OCCUPATIONAL Appointment Type:OT 60 (FT) Appointment Date:12/11/2022 09:00:00 AM Scheduled Provider: Location:[facility] [place] Appointment Type:URO Nurse Visit Appointment Date:12/12/2022 10:00:00 AM Scheduled Provider: Location:FT.OCCUPATIONAL Appointment Type:OT 60 (FT) Appointment Date:12/17/2022 08:45:00 AM Scheduled Provider: Location:FT.OCCUPATIONAL Appointment Type:OT 60 (FT) Appointment Date:12/19/2022 08:15:00 AM Scheduled Provider: Location:FT.OCCUPATIONAL Appointment Type:OT 60 (FT) Appointment Date:12/24/2022 08:45:00 AM Scheduled Provider: Location:FT.OCCUPATIONAL Appointment Type:OT 60 (FT) Appointment Date:12/26/2022 09:00:00 AM Scheduled Provider: Location:FT.OCCUPATIONAL Appointment Type:OT 60 (FT) Appointment Date:12/31/2022 09:00:00 AM Scheduled Provider: Location:FT.OCCUPATIONAL Appointment Type:OT 60 (FT) Appointment Date:01/02/2023 08:15:00 AM Scheduled Provider: Location:FT.OCCUPATIONAL Appointment Type:OT Re-Eval (FT) Appointment Date:01/07/2023 09:30:00 AM Scheduled Provider: Location:FT.OCCUPATIONAL Appointment Type:OT 60 (FT) Appointment Date:01/09/2023 08:15:00 AM Scheduled Provider: Location:FT.OCCUPATIONAL Appointment Type:OT 60 (FT) Appointment Date:01/14/2023 08:15:00 AM Scheduled Provider: Location:FT.OCCUPATIONAL Appointment Type:OT 60 (FT) Appointment Date:01/16/2023 08:15:00 AM Scheduled Provider: Location:FT.OCCUPATIONAL Appointment Type:OT Re-Eval (FT) [facility] Mini Evaluation note* Diagnosis Hemiparesis of right dominant side, unspecified hemiparesis etiology (HCC)- Primary [facility] Transverse myelitis (HCC)- Primary Other causes of myelitis [facility] Diagnosis Transverse myelitis (HCC)- Primary Other causes of myelitis Localized enlarged lymph nodes Enlargement of lymph nodes Vision loss of right eye Unqualified visual loss, one eye [facility] Diagnosis Localized enlarged lymph nodes Enlargement of lymph nodes [facility] Diagnosis Spastic hemiplegia of right dominant side due to noncerebrovascular etiology (HCC)- Primary ILD (interstitial lung disease) (HCC) Postinflammatory pulmonary fibrosis Uveitis Unspecified iridocyclitis Recurrent mouth ulceration Other and unspecified diseases of the oral soft tissues [facility] Diagnosis Hypoglycemic reaction- Primary Hypoglycemia, unspecified [facility]* Diagnosis Transverse myelitis (HCC) Other causes of myelitis [facility] Diagnosis Spastic hemiparesis affecting dominant side (HCC)- Primary Spastic hemiplegia affecting dominant side Impaired mobility and ADLs Other ill-defined conditions Abnormality of gait Dysphagia, unspecified type [facility]* Diagnosis Sarcoidosis- Primary SOB (shortness of breath) Shortness of breath [facility]* Diagnosis Sarcoidosis- Primary SOB (shortness of breath) Shortness of breath [facility] Diagnosis Spastic hemiparesis affecting dominant side (HCC) Spastic hemiplegia affecting dominant side Impaired mobility and ADLs Other ill-defined conditions Abnormality of gait [facility]* Diagnosis Vision loss, bilateral- Primary Unqualified visual loss, both eyes Transverse myelitis (HCC) Other causes of myelitis Uveitis Unspecified iridocyclitis Optic neuropathy Other optic neuritis [facility] Diagnosis Impaired mobility and ADLs- Primary Other ill-defined conditions Spastic hemiparesis affecting dominant side (HCC) Spastic hemiplegia affecting dominant side Abnormality of gait [facility] Diagnosis Acute transverse myelitis (HCC)- Primary Acute (transverse) myelitis NOS documented in this encounter [facility] note* Diagnosis Spastic hemiparesis affecting dominant side (HCC)- Primary Spastic hemiplegia affecting dominant side [facility] noteNo assessment information availableAultman Hospital Work Phone: Evaluation note* Diagnosis Spastic hemiparesis affecting dominant side (HCC)- Primary Spastic hemiplegia affecting dominant side Acute transverse myelitis (HCC) Acute (transverse) myelitis NOS Chronic right shoulder pain Pain in joint, shoulder region Dysphagia, unspecified type [facility]* Diagnosis Spastic hemiparesis affecting dominant side (HCC)- Primary Spastic hemiplegia affecting dominant side Acute transverse myelitis (HCC) Acute (transverse) myelitis NOS [facility] N[facility] No data available for this section [facility] No data available for this section [facility] No data available for this section [facility] Summary Purpose Family History No Family History Records Found Relationship Condition Age at Onset Recorded Date/T minh father Type 2 diabetes mellitus Unknown Heart disease Unknown Chronic obstructive pulmonary disease Unk nown Cerebrovascular accident (CVA) Unknown History of agent Blanco exposure Unknown Posttraumatic stress disorder Unknown Not Specified Malignant neoplasm of skin Unknown Transient ischemic attack Unknown Advance Directives No Advanced Directives Records FoundDocuments on File Type Date Recorded Patient Industrial Waste Treatment Technician Expl anation Advance Directive(s) 03/28/2018 3:20 PM Advance Directive(s) 04/10/2017 11:11 AM Documents on File Type Date Recorded Patient Industrial Waste Treatment Technician Expl anation Advance Directive(s) 03/28/2018 3:20 PM Advance Directive(s) 04/10/2017 11:11 AM Advance Directive Response Recorded Date/ Time Advance Directives No January 23, 2019 8:01pm Reason for Referral Specialty Diagnoses / Procedures Referred By Contac t Referred To Contact [facility] Diagnoses Dysphagia, unspecified type Procedures CONSULT TO SPEECH THERAPY OFFICE/OUTPATIENT [facility] 60-74 MINUTES Desiree Enriquez, CLAIM ADJUSTER.OWNER [address] [place] [address] [facility] [address] [address] Referral ID Status Reason Start Date Expiration Date Visits Requested Visits Authorized [id number] Pending Review Auto-Generat ed Referral 11/15/2021 11/15/2022 1 1 Specialty Diagnoses / Procedures Referred By Contac t Referred To Contact [facility] Diagnoses Spastic hemiparesis affecting dominant side (HCC) Impaired mobility and ADLs Abnormality of gait Procedures CONSULT TO [facility]AL HIGH COMPLEX 60 MINS Desiree Enriquez APRN.OWNER [address] [place] [address] [facility] [address] [address] Referral ID Status Reason Start Date Expiration Date Visits Requested Visits Authorized [id number] Pending Review Auto-Generat ed Referral 11/15/2021 11/15/2022 1 1 Specialty Diagnoses / Procedures Referred By Contac t Referred To Contact [facility] Diagnoses Spastic hemiparesis affecting dominant side (HCC) Impaired mobility and ADLs Abnormality of gait Procedures CONSULT TO PHYSICAL THERAPY PHYSICAL THERAPY [facility] HIGH COMPLEX 45 MINS Desiree Enriquez APRN.OWNER [address] [place] [address] [facility] [address] [address] Referral ID Status Reason Start Date Expiration Date Visits Requested Visits Authorized [id number] Pending Review Auto-Generat ed Referral 11/15/2021 11/15/2022 1 1 Specialty Diagnoses / Procedures Referred By Contac t Referred To Contact Ophthalmology Diagnoses Uveitis Procedures CONSULT TO OPHTHALMOLOGY OFFICE/OUTPATIENT [facility] 60-74 MINUTES Urszula Genao MD [address] [place] [address] Referral ID Status Reason Start Date Expiration Date Visits Requested Visits Authorized [id number] Pending Review PCP Requested Referral 10/20/2021 10/20/2022 1 1 Specialty Diagnoses / Procedures Referred By Contac t Referred To Contact Ophthalmology Diagnoses Transverse myelitis (HCC) Procedures CONSULT TO OPHTHALMOLOGY OFFICE/OUTPATIENT [facility] 60-74 MINUTES Jose Hassan MD [address] [place] [address] Referral ID Status Reason Start Date Expiration Date Visits Requested Visits Authorized [id number] Authorized PCP Requested Referral 09/22/2021 09/22/2022 1 1 Specialty Diagnoses / Procedures Referred By Contac t Referred To Contact Rheumatology Diagnoses Transverse myelitis (HCC) Procedures CONSULT TO RHEUM/IMMUN DISEASE OFFICE/OUTPATIENT [facility] 60-74 MINUTES Jose Hassan MD [address] [place] [address] Referral ID Status Reason Start Date Expiration Date Visits Requested Visits Authorized [id number] Authorized PCP Requested Referral 09/22/2021 09/22/2022 1 1 Specialty Diagnoses / Procedures Referred By Contac t Referred To Contact MR IMAGING Diagnoses Transverse myelitis (HCC) Procedures MRI BRAIN WO IVCON MRI BRAIN BRAIN STEM W/O CONTRAST MATERIAL Jose Hassan MD [address] [id number] Mr Imaging Referral ID Status Reason Start Date Expiration Date Visits Requested Visits Authorized [id number] Pending Review Auto-Generat ed Referral 09/22/2021 10/22/2022 1 1 Specialty Diagnoses / Procedures Referred By Contac t Referred To Contact MR IMAGING Diagnoses Transverse myelitis (HCC) Procedures MRI THORACIC SPINE WO IVCON MRI SPINAL CANAL THORACIC W/O CONTRAST MATRL Jose Hassan MD [address] [place] [address] Mr Imaging Referral ID Status Reason Start Date Expiration Date Visits Requested Visits Authorized [id number] Pending Review Auto-Generat ed Referral 09/22/2021 10/22/2022 1 1 Specialty Diagnoses / Procedures Referred By Contac t Referred To Contact MR IMAGING Diagnoses Transverse myelitis (HCC) Procedures MRI CERVICAL SPINE WO IVCON MRI SPINAL CANAL CERVICAL W/O CONTRAST MATRL Jose Hassan MD [address] [id number] Mr Imaging Referral ID Status Reason Start Date Expiration Date Visits Requested Visits Authorized [id number] Pending Review Auto-Generat ed Referral 09/22/2021 10/22/2022 1 1 Specialty Diagnoses / Procedures Referred By Contac t Referred To Contact CT IMAGING Diagnoses Localized enlarged lymph nodes Procedures CT CHEST WO IVCON DIAGNOSTIC COMPUTED TOMOGRAPHY THORAX W/O CNTRST Jose Hassan MD [address] [place], [place] [id number] Ct Imaging Referral ID Status Reason Start Date Expiration Date Visits Requested Visits Authorized [id number] Pending Review Auto-Generat ed Referral 09/22/2021 10/22/2022 1 1 Specialty Diagnoses / Procedures Referred By Contac t Referred To Contact Diagnoses Transverse myelitis (HCC) Procedures CONSULT TO [facility] OFFICE/OUTPATIENT [facility] 60-74 MINUTES Justina Fuentes MD [address] [place], [place] [id number] Referral ID Status Reason Start Date Expiration Date Visits Requested Visits Authorized [id number] Pending Review PCP Requested Referral 09/21/2021 09/21/2022 1 1 Specialty Diagnoses / Procedures Referred By Contac t Referred To Contact [facility] Diagnoses Transverse myelitis (HCC) Procedures CONSULT TO PHYSICAL MEDICINE AND REHABILITATION OFFICE/OUTPATIENT [facility] 60-74 MINUTES Justina Fuentes MD [address] [id number] [facility] [place] [address] [place] [id number] Referral ID Status Reason Start Date Expiration Date Visits Requested Visits Authorized [id number] Pending Review PCP Requested Referral Auto-Generate d Referral 09/21/2021 09/21/2022 1 1 Medications Administered Section Inactive Administered Medications - up to 3 most recent administrations Medication Order MAR Action Action Date Dose Rate Site tropicamide 1 % 1 Drop (MYDRIACYL) 1 Drop, BOTH EYES, DIRECTED, Starting on Sat10/20/21 at 1200, Until Sat10/20/21 at 2359, Administer for dilation Given 10/20/2021 11:35 AM EDT 1 Drop Inactive Administered Medications - up to 3 most recent administrations Medication Order MAR Action Action Date Dose Rate Site PHENYLephrine 2.5 % 1 Drop (AK-DILATE, MATTHEW-SYNEPHRINE) 1 Drop, BOTH EYES, DIRECTED, Starting on Sat12/05/21 at 0000, Until Sat12/05/21 at 1159, Administer for dilation PROTECT FROM LIGHT Given 12/06/2021 10:31 AM EDT 1 Drop tropicamide 1 % 1 Drop (MYDRIACYL) 1 Drop, BOTH EYES, DIRECTED, Starting on Sat12/05/21 at 0000, Until Sat12/05/21 at 1159, Administer for dilation Given 12/06/2021 10:32 AM EDT 1 Drop Inactive Administered Medications - up to 3 most recent administrations Medication Order MAR Action Action Date Dose Rate Site onabotulinum toxin type A 300 Units injection (BOTOX) 300 Units, INTRAMUSCULAR, ONCE, 1 dose, On Sat08/03/22 at 1200, Reconstitute with 1.2 mL 0.9% NaCl. This record documents the total dose provided to patient. See progress note for specific locations and amounts administered. REFRIGERATE - Pharmaceutical Waste: Lab Pack - Given 08/03/2022 12:00 PM EDT 300 Units Other Inactive Administered Medications - up to 3 most recent administrations Medication Order MAR Action Action Date Dose Rate Site onabotulinum toxin type A 400 Units injection (BOTOX) 400 Units, INTRAMUSCULAR, ONCE, 1 dose, On Sat01/30/23 at 1400, Reconstitute with 1.2 mL 0.9% NaCl. This record documents the total dose provided to patient. See progress note for specific locations and amounts administered. REFRIGERATE - Pharmaceutical Waste: Lab Pack - Given 01/30/2023 2:15 PM EST 400 Units Other Chief Complaint and Reason for Visit Chief Complaint Hypotonic Neurogenic Bladder Chief Complaint Hypotonic Neurogenic Bladder Hypotonic Neurogenic Bladder Additional Source Comments INFORMATION SOURCE (unrecogn ized section and content) DATE CREATED AUTHOR 04/09/2018 [facility] DATE CREATED AUTHOR AUTHOR'S ORGANIZ ATION 07/28/2022 [facility] DATE CREATED AUTHOR AUTHOR'S ORGANIZ ATION 08/09/2022 [facility] DATE CREATED AUTHOR AUTHOR'S ORGANIZ ATION 02/02/2023 [facility] DATE CREATED AUTHOR AUTHOR'S ADAM ATION [facility]20[facility] Source Comments (unrecognize d section and content) In the event this informatio n is protected by the Federal Confidentiality of Alcohol and Drug Abuse Patient Records regulations: The Federal rules restrict any use of the information to criminally investigate or prosecute any alcohol or drug abuse patient.[facility] the event this information is protected by the Federal Confidentiality of Alcohol and Drug Abuse Patient Records regulations: The Federal rules restrict any use of the information to criminally investigate or prosecute any alcohol or drug abuse patient.[facility] the event this information is protected by the Federal Confidentiality of Alcohol and Drug Abuse Patient Records regulations: The Federal rules restrict any use of the information to criminally investigate or prosecute any alcohol or drug abuse patient.[facility] the event this information is protected by the Federal Confidentiality of Alcohol and Drug Abuse Patient Records regulations: The Federal rules restrict any use of the information to criminally investigate or prosecute any alcohol or drug abuse patient.[facility] Hospital[facility] the event this information is protected by the Federal Confidentiality of Alcohol and Drug Abuse Patient Records regulations: The Federal rules restrict any use of the information to criminally investigate or prosecute any alcohol or drug abuse patient.[facility] the event this information is protected by the Federal Confidentiality of Alcohol and Drug Abuse Patient Records regulations: The Federal rules restrict any use of the information to criminally investigate or prosecute any alcohol or drug abuse patient.[facility] Hospital[facility] the event this information is protected by the Federal Confidentiality of Alcohol and Drug Abuse Patient Records regulations: The Federal rules restrict any use of the information to criminally investigate or prosecute any alcohol or drug abuse patient.[facility] Hospital[facility] the event this information is protected by the Federal Confidentiality of Alcohol and Drug Abuse Patient Records regulations: The Federal rules restrict any use of the information to criminally investigate or prosecute any alcohol or drug abuse patient.[facility] Hospital[facility] the event this information is protected by the Federal Confidentiality of Alcohol and Drug Abuse Patient Records regulations: The Federal rules restrict any use of the information to criminally investigate or prosecute any alcohol or drug abuse patient.[facility] Hospital[facility] the event this information is protected by the Federal Confidentiality of Alcohol and Drug Abuse Patient Records regulations: The Federal rules restrict any use of the information to criminally investigate or prosecute any alcohol or drug abuse patient.[facility] HospitalIn the event this information is protected by the Federal Confidentiality of Alcohol and Drug Abuse Patient Records regulations: The Federal rules restrict any use of the information to criminally investigate or prosecute any alcohol or drug abuse patient.[facility] HospitalIn the event this information is protected by the Federal Confidentiality of Alcohol and Drug Abuse Patient Records regulations: The Federal rules restrict any use of the information to criminally investigate or prosecute any alcohol or drug abuse patient.[facility] HospitalIn the event this information is protected by the Federal Confidentiality of Alcohol and Drug Abuse Patient Records regulations: The Federal rules restrict any use of the information to criminally investigate or prosecute any alcohol or drug abuse patient.[facility] HospitalIn the event this information is protected by the Federal Confidentiality of Alcohol and Drug Abuse Patient Records regulations: The Federal rules restrict any use of the information to criminally investigate or prosecute any alcohol or drug abuse patient.[facility] HospitalIn the event this information is protected by the Federal Confidentiality of Alcohol and Drug Abuse Patient Records regulations: The Federal rules restrict any use of the information to criminally investigate or prosecute any alcohol or drug abuse patient.[facility] HospitalIn the event this information is protected by the Federal Confidentiality of Alcohol and Drug Abuse Patient Records regulations: The Federal rules restrict any use of the information to criminally investigate or prosecute any alcohol or drug abuse patient.[facility] HospitalIn the event this information is protected by the Federal Confidentiality of Alcohol and Drug Abuse Patient Records regulations: The Federal rules restrict any use of the information to criminally investigate or prosecute any alcohol or drug abuse patient.[facility] HospitalIn the event this information is protected by the Federal Confidentiality of Alcohol and Drug Abuse Patient Records regulations: The Federal rules restrict any use of the information to criminally investigate or prosecute any alcohol or drug abuse patient.[facility] HospitalIn the event this information is protected by the Federal Confidentiality of Alcohol and Drug Abuse Patient Records regulations: The Federal rules restrict any use of the information to criminally investigate or prosecute any alcohol or drug abuse patient.[facility] HospitalIn the event this information is protected by the Federal Confidentiality of Alcohol and Drug Abuse Patient Records regulations: The Federal rules restrict any use of the information to criminally investigate or prosecute any alcohol or drug abuse patient.[facility] HospitalIn the event this information is protected by the Federal Confidentiality of Alcohol and Drug Abuse Patient Records regulations: The Federal rules restrict any use of the information to criminally investigate or prosecute any alcohol or drug abuse patient.[facility] HospitalIn the event this information is protected by the Federal Confidentiality of Alcohol and Drug Abuse Patient Records regulations: The Federal rules restrict any use of the information to criminally investigate or prosecute any alcohol or drug abuse patient.[facility] HospitalIn the event this information is protected by the Federal Confidentiality of Alcohol and Drug Abuse Patient Records regulations: The Federal rules restrict any use of the information to criminally investigate or prosecute any alcohol or drug abuse patient.[facility] HospitalIn the event this information is protected by the Federal Confidentiality of Alcohol and Drug Abuse Patient Records regulations: The Federal rules restrict any use of the information to criminally investigate or prosecute any alcohol or drug abuse patient.[facility] HospitalIn the event this information is protected by the Federal Confidentiality of Alcohol and Drug Abuse Patient Records regulations: The Federal rules restrict any use of the information to criminally investigate or prosecute any alcohol or drug abuse patient.[facility] HospitalIn the event this information is protected by the Federal Confidentiality of Alcohol and Drug Abuse Patient Records regulations: The Federal rules restrict any use of the information to criminally investigate or prosecute any alcohol or drug abuse patient.[facility] HospitalIn the event this information is protected by the Federal Confidentiality of Alcohol and Drug Abuse Patient Records regulations: The Federal rules restrict any use of the information to criminally investigate or prosecute any alcohol or drug abuse patient.[facility] HospitalIn the event this information is protected by the Federal Confidentiality of Alcohol and Drug Abuse Patient Records regulations: The Federal rules restrict any use of the information to criminally investigate or prosecute any alcohol or drug abuse patient.[facility] Reason for Visit (unrecogniz ed section and content) Reason Comments Spasticity botulinum toxin injections Specialty Diagnoses / Procedures Referred By Contac t Referred To Contact Neurology / [facility] Diagnoses Spastic hemiplegia affecting unspecified side Procedures BOTULINUM TOXIN A PER 1 UNIT INITIAL J0585 - BOTULINUM TOXIN A UP TO 400 UNITS EVERY 90 DAYS x 1 YEAR FOR SPASTICITY 18747 EXTREMITY, 5 OR MORE MUSCLES Justina Fuentes MD [address] [place] [address] Desiree Enriquez APRN.OWNER [address] [place] [address] Referral ID Status Reason Start Date Expiration Date V isits Requested Visits Authorized [id number] Authorized 10/24/2021 10/23/2022 99 99 Reason Comments Physical Therapy Specialty Diagnoses / Procedures Referred By Contac t Referred To Contact [facility] Diagnoses Spastic hemiparesis affecting dominant side (HCC) Impaired mobility and ADLs Abnormality of gait Procedures CONSULT TO PHYSICAL THERAPY PHYSICAL THERAPY EVALUATION HIGH COMPLEX 45 MINS Desiree Enriquez APRN.OWNER [address] [place] [address] [facility] [address] [place] [address] Referral ID Status Reason Start Date Expiration Date V isits Requested Visits Authorized [id number] Authorized 02/18/2021 02/17/2022 60 60 Reason Comments Received Outside Medical Records OSH NI referral Reason Comments New Patient Reason Comments New Patient Reason Comments New Patient Evaluation Reason Comments Radiology CT Specialty Diagnoses / Procedures Referred By Contac t Referred To Contact CT IMAGING Diagnoses Localized enlarged lymph nodes Procedures CT CHEST WO IVCON DIAGNOSTIC COMPUTED TOMOGRAPHY THORAX W/O CNTRST Jose Hassan MD [address] [place] [address] Ct Imaging Referral ID Status Reason Start Date Expiration Date V isits Requested Visits Authorized [id number] Closed Auto-Generate d Referral 09/22/2021 10/22/2022 1 1 Reason Comments Orders Reason Comments Received Outside Medical Records Specialty Diagnoses / Procedures Referred By Contac t Referred To Contact Rheumatology Diagnoses Transverse myelitis (HCC) Procedures CONSULT TO RHEUM/IMMUN DISEASE OFFICE/OUTPATIENT NEW HIGH MDM 60-74 MINUTES Jose Hassan MD [address] [place] [address] Referral ID Status Reason Start Date Expiration Date V isits Requested Visits Authorized [id number] Closed PCP Requested Referral 09/22/2021 09/22/2022 1 1 Reason Comments Blurry Vision Both Eyes Visually Impaired Both Eyes Specialty Diagnoses / Procedures Referred By Contac t Referred To Contact MR IMAGING Diagnoses Transverse myelitis (HCC) Procedures MRI BRAIN WO IVCON MRI BRAIN BRAIN STEM W/O CONTRAST MATERIAL Jose Hassan MD [address] [place] [address] Mr Imaging Referral ID Status Reason Start Date Expiration Date V isits Requested Visits Authorized [id number] Closed Auto-Generate d Referral 09/22/2021 10/22/2022 1 1 Reason Comments Appointment Left Pt a VM asking they return our call to schedule PT/OT/Speech Therapy Consults, preferably on the same day as their BOTOX appointment on 02/20/22 Reason Comments Spirometry Specialty Diagnoses / Procedures Referred By Contac t Referred To Contact [facility] Diagnoses Sarcoidosis SOB (shortness of breath) Procedures LUNG DIFFUSION CAPACITY (DLCO) DIFFUSING CAPACITY Alberto Kendall MD [address] [id number] [facility] [address] [place] [address] Referral ID Status Reason Start Date Expiration Date V isits Requested Visits Authorized [id number] Closed Auto-Generate d Referral 11/10/2021 12/10/2022 1 1 Specialty Diagnoses / Procedures Referred By Contac t Referred To Contact [facility] Diagnoses Sarcoidosis SOB (shortness of breath) Procedures SPIROMETRY WITH DILATOR IF OBSTRUCTED BRNCDILAT RSPSE SPMTRY PRE&POST-BRNCDILAT ADMN Alberto Kendall MD [address] [place], [place] [id number] [facility] [address] [place] [address] Referral ID Status Reason Start Date Expiration Date V isits Requested Visits Authorized [id number] Closed Auto-Generate d Referral 11/10/2021 12/10/2022 1 1 Reason Comments PT Re-eval Reason Comments Multiple Sclerosis Specialty Diagnoses / Procedures Referred By Contac t Referred To Contact Ophthalmology Diagnoses Transverse myelitis (HCC) Procedures CONSULT TO OPHTHALMOLOGY OFFICE/OUTPATIENT [facility] MDM 60-74 MINUTES Jose Hassan MD [address] [place] [address] Referral ID Status Reason Start Date Expiration Date V isits Requested Visits Authorized [id number] Closed PCP Requested Referral 09/22/2021 09/22/2022 1 1 Reason Comments Orders Faxed orders Reason Comments Established Patient Follow-Up Reason Comments Spasticity botulinum toxin injections Specialty Diagnoses / Procedures Referred By Contac t Referred To Contact [facility]YSICAL [facility]ICINE AND REHAB Diagnoses Spastic hemiplegia affecting unspecified side Procedures BOTULINUM TOXIN A PER 1 UNIT RENEWAL J0585 - BOTULINUM TOXIN A UP TO 400 UNITS EVERY 90 DAYS x 1 YEAR FOR SPASTICITY 40008 EXTREMITY, 5 OR MORE MUSCLES Haile Barrios MD [address] [place] [address] [place] [address] [place] [address] Referral ID Status Reason Start Date Expiration Date V isits Requested Visits Authorized [id number] Authorized 10/31/2022 10/31/2023 99 99 Care Teams (unrecognized sec tion and content) Physician Vice President Relationship Specialty Start Date End Date Francesco Quinteros MD PCP - General Family Practice 01/01/12 Yimi Nina [address] [place] [address] Referring Ophthalmology 04/10/17 Bella Fraser PA-C NI Referring Team 01/09/21 Physician Vice President Relationship Specialty Start Date End Date Francesco Quinteros MD PCP - General Family Practice 01/01/12 Yimi Nina [address] [place] [address] Referring Ophthalmology 04/10/17 Bella Fraser PA-C NI Referring Team 01/09/21 Physician Vice President Relationship Specialty Start Date End Date Francesco Quinteros MD PCP - General Family Practice 01/01/12 Yimi Nina [address] [place] [address] Referring Ophthalmology 04/10/17 Bella Fraser PA-C NI Referring Team 01/09/21 Physician Vice President Relationship Specialty Start Date End Date Francesco Quinteros MD PCP - General Family Practice 01/01/12 Yimi Nina [address] [place] [address] Referring Ophthalmology 04/10/17 Bella Fraser PA-C NI Referring Team 01/09/21 Physician Vice President Relationship Specialty Start Date End Date Francesco Quinteros MD PCP - General Family Practice 01/01/12 Yimi Nina [address] [place] [address] Referring Ophthalmology 04/10/17 Bella Fraser PA-C NI Referring Team 01/09/21 Physician Vice President Relationship Specialty Start Date End Date Francesco Quinteros MD PCP - General Family Practice 01/01/12 Yimi Nina [address] [place] [address] Referring Ophthalmology 04/10/17 Bella Fraser PA-C NI Referring Team 01/09/21 Physician Vice President Relationship Specialty Start Date End Date Francesco Quinteros MD PCP - General Family Practice 01/01/12 Yimi Nina [address] [place] [address] Referring Ophthalmology 04/10/17 Bella Fraser PA-C NI Referring Team 01/09/21 Physician Vice President Relationship Specialty Start Date End Date Francesco Quinteros MD PCP - General Family Practice 01/01/12 Yimi Nina [address] [place] [address] Referring Ophthalmology 04/10/17 Bella Fraser PA-C NI Referring Team 01/09/21 Physician Vice President Relationship Specialty Start Date End Date Francesco Quinteros MD PCP - General Family Practice 01/01/12 Yimi Nina [address] [place] [address] Referring Ophthalmology 04/10/17 Bella Fraser PA-C NI Referring Team 01/09/21 Physician Vice President Relationship Specialty Start Date End Date Francesco Quinteros MD PCP - General Family Practice 01/01/12 Yimi Nina [address] [place] [address] Referring Ophthalmology 04/10/17 Bella Fraser PA-C NI Referring Team 01/09/21 Physician Vice President Relationship Specialty Start Date End Date Francesco Quinteros MD PCP - General Family Practice 01/01/12 Yimi Nina [address] [place] [address] Referring Ophthalmology 04/10/17 Bella Fraser PA-C NI Referring Team 01/09/21 Physician Vice President Relationship Specialty Start Date End Date Francesco Quinteros MD PCP - General Family Practice 01/01/12 Yimi Nina [address] [place] [address] Referring Ophthalmology 04/10/17 Bella Fraser PA-C NI Referring Team 01/09/21 Physician Vice President Relationship Specialty Start Date End Date Francesco Quinteros MD PCP - General Family Medicine 01/01/12 Yimi Nina [address] [place] [address] Referring Ophthalmology 04/10/17 Bella Fraser PA-C NI Referring Team 01/09/21 Physician Vice President Relationship Specialty Start Date End Date Francesco Quinteros MD PCP - General Family Medicine 01/01/12 Yimi Nina [address] [place] [address] Referring Ophthalmology 04/10/17 Bella Fraser PA-C NI Referring Team 01/09/21 Physician Vice President Relationship Specialty Start Date End Date Francesco Quinteros MD PCP - General Family Medicine 01/01/12 Yimi Nina [address] [place] [address] Referring Ophthalmology 04/10/17 Bella Fraser PA-C NI Referring Team 01/09/21 Physician Vice President Relationship Specialty Start Date End Date Francesco Quinteros MD PCP - General Family Medicine 01/01/12 Yimi Nina [address] [place] [address] Referring Ophthalmology 04/10/17 Bella Fraser PA-C NI Referring Team 01/09/21 Physician Vice President Relationship Specialty Start Date End Date Francesco Quinteros MD PCP - General Family Medicine 01/01/12 Yimi Nina [address] [place] [address] Referring Ophthalmology 04/10/17 Bella Fraser PA-C NI Referring Team 01/09/21 Physician Vice President Relationship Specialty Start Date End Date Francesco Quinterso MD PCP - General Family Medicine 01/01/12 Yimi Nina [address] [place] [address] Referring Ophthalmology 04/10/17 Bella Fraser PA-C NI Referring Team 01/09/21 Physician Vice President Relationship Specialty Start Date End Date Francesco Quinteros MD PCP - General Family Medicine 01/01/12 Yimi Nina [address] [place] [address] Referring Ophthalmology 04/10/17 Bella Fraser PA-C NI Referring Team 01/09/21 Physician Vice President Relationship Specialty Start Date End Date Francesco Quinteros MD PCP - General Family Medicine 01/01/12 Yimi Nina [address] [place] [address] Referring Ophthalmology 04/10/17 Bella Fraser PA-C NI Referring Team 01/09/21 Physician Vice President Relationship Specialty Start Date End Date Francesco Quinteros MD PCP - General Family Medicine 01/01/12 Yimi Nina [address] [place] [address] Referring Ophthalmology 04/10/17 Bella Fraser PA-C NI Referring Team 01/09/21 Physician Vice President Relationship Specialty Start Date End Date Francesco Quinteros MD PCP - General Family Medicine 01/01/12 Yimi Nina [address] [place] [address] Referring Ophthalmology 04/10/17 Bella Fraser PA-C NI Referring Team 01/09/21 Physician Vice President Relationship Specialty Start Date End Date Francesco Quinteros MD PCP - General Family Medicine 01/01/12 Yimi Nina [address] [place] [address] Referring Ophthalmology 04/10/17 Bella Fraser PA-C NI Referring Team 01/09/21 Team Status: Active Member Role Status Dates Francesco Quinteros MD Primary Care Provider Active Team Status: Inactive Member Role Status Dates Francesco Quinteros MD Primary Care Provider Active Yaakov Greenwood MD Attending Provider Active Physician Vice President Relationship Specialty Start Date End Date Francesco Quinteros MD PCP - General Family Medicine 01/01/12 Yimi Nina [address] [place] [address] Referring Ophthalmology 04/10/17 Bella Fraser PA-C NI Referring Team 01/09/21 Physician Vice President Relationship Specialty Start Date End Date Francesco Quinteros MD PCP - General Family Medicine 01/01/12 Yimi Nina [address] [place] [address] Referring Ophthalmology 04/10/17 Bella Fraser PA-C [address] [place] [address] NI Referring Team 01/09/21 Goals (unrecognized section and content) Goals may be documented in a n alternate section FOR RECORDS PERTAINING TO PATIENTS WHO ARE OR HAVE BEEN ENROLLED IN A CHEMICAL DEPENDENCY/SUBSTANCEABUSE PROGRAM, SOME INFORMATION MAY BE OMITTED. This clinical summary was aggregated from multiple sources. Caution should be exercised in using it in the provision of clinical care. This summary normalizes information from multiple sources, and as a consequence, information in this document may materially change the coding, format and clinical context of patient data. In addition, data may be omitted in some cases. CLINICAL DECISIONS SHOULD BE BASED ON THE PRIMARY CLINICAL RECORDS. [facility] provides no warranty or guarantee of the accuracy or completeness of information in this document.
--- NOTE | 2023-02-10 13:26 | ECG_ITS ---
[facility] Test Date: 2023-02-10 Pat Name: JESSICA CRISTINA Department: Room: - Gender: Female Turn Down Attendant: : 1975 Requested By: FRANCESCO QUINTEROS Order Number: [id number] Reading MD: FRANCESCO QUINTEROS Measurements Intervals Danese Rate: 89 P: 42 TX: 158 QRS: -7 QRSD: 76 T: 44 QT: 332 QTc: 378 Interpretive Statements 1100 Sinus rhythm 3113 Cannot rule out anterior myocardial infarction, probably old 9150 abnormal ECG No previous ECG available for comparison Electronically Signed On 02-12-2023 7:52:56 EST by FRANCESCO QUINTEROS
--- NOTE | 2023-02-10 13:26 | XR_ITS ---
The [address] [address] Patient Name: JESSICA CRISTINA MRN: [id number] date: 1975 Sex: F Assigned Patient Location: ER Current Patient Location: ER Accession/Order Number: [id number] Exam Date: 02/10/2023 13:29 Report Date: 02/10/2023 14:04 At the request of: LILIA NIELSEN Procedure: XR chest 1V EXAM: XR chest 1V HISTORY: Chest pain. COMPARISON: 10/17/2020. TECHNIQUE: AP upright portable. FINDINGS: Overlying monitoring leads. Lung volumes are mildly diminished with associated accentuation of the cardiomediastinal contour. The lungs and the costophrenic angles are clear. XR/XR chest 1V IMPRESSION: Mildly diminished lung volumes. Electronically authenticated by: KSENIA UP Date: 02/10/2023 14:04
[2023-02-10 13:35] LABS: Basophils Absolute Auto 0.1 10^3/uL (0.0-0.1); Basophils Percent Auto 0.7 % (0.2-2.0); Eosinophils Absolute Auto 0.1 10^3/uL (0.0-0.7); Eosinophils Percent Auto 1.2 % (0.9-7.0); Hematocrit 35.9 % (36.0-48.0); Hemoglobin 11.2 g/dL (12.0-16.0); Immature Granulocytes Abs Auto 0.03 10^3/uL (0.00-0.03); Immature Granulocytes Pct Auto 0.3 % (0.0-0.5); Lymphocytes Absolute Auto 2.5 10^3/uL (1.2-3.8); Lymphocytes Percent Auto 25.9 % (20.5-60.0); Mean Corpuscular HGB Conc 31.2 g/dL (29.9-35.2); Mean Corpuscular Hemoglobin 24.8 pg (26.7-34.0); Mean Corpuscular Volume 79.4 fL (81.0-99.0); Mean Platelet Volume 11.8 fL (9.5-13.5); Monocytes Absolute Auto 0.7 10^3/uL (0.3-0.8); Monocytes Percent Auto 7.4 % (1.7-12.0); Neutrophils Absolute Auto 6.2 10^3/uL (1.4-6.5); Neutrophils Percent Auto 64.5 % (43.0-75.0); Platelet Count 275 10^3/uL (150-450); Red Blood Count 4.52 10^6/uL (4.20-5.40); White Blood Count 9.5 10^3/uL (4.0-11.0)
[2023-02-10 13:48] LABS: Anion Gap 15.7; BUN Creatinine Ratio 13.3; Calcium 9.3 mg/dL (8.5-10.1); Carbon Dioxide 25.5 mmol/L (21.0-32.0); Chloride 98 mmol/L (98-107); Estimated GFR (African America >60 (>=60); Estimated GFR (Non-African Ame >60 (>=60); Glucose 145 mg/dL (74-106); Potassium 3.2 mmol/L (3.5-5.1); Sodium 136 mmol/L (136-145); Troponin I High Sensitivity <4.0 pg/mL (4.0-51.3)
[2023-02-10] MEDS: lidocaine HCL 15 ML, MAG HYDROX/ALUMINUM HYD/SIMETH 30 ML, HYOSCYAMINE SULFATE 0.25 MG PO (14:00)
--- NOTE | 2023-02-10 14:54 | ED.CHESTPAI1 ---
HPI - Chest Pain General Chief Complaint: Back Pain/Injury Stated Complaint: CHEST PAIN/ BACK PAIN Time Seen by Provider: 02/10/23 13:34 Source: patient Mode of arrival: Wheelchair Limitations: no limitations History of Present Illness HPI narrative: 47-year-old female presents for chest pain. It's in the middle part of her chest and goes through to her back. There has been no injury fever or cough. She doesn't complain to me of shortness of breath or leg swelling. The pain is mild to moderate and continuous. It doesn't go to her jaw or arms. Related Data Home Medications Medication Instructions Recorded Confirmed allopurinol 100 mg tablet 100 mg PO DAILY 02/10/23 02/10/23 baclofen 20 mg tablet 20 mg PO Q12H 02/10/23 02/10/23 clindamycin phosphate 1 % lotion 1 applic topical BID 02/10/23 02/10/23 clopidogrel 75 mg tablet 75 mg PO DAILY 02/10/23 02/10/23 desvenlafaxine succinate 100 mg 100 mg PO Q24H 02/10/23 02/10/23 tablet,extended release 24 hr diclofenac sodium 75 mg 75 mg PO Q12H 02/10/23 02/10/23 tablet,delayed release famotidine 40 mg tablet 40 mg PO DAILY 02/10/23 02/10/23 furosemide 40 mg tablet 40 mg PO DAILY 02/10/23 02/10/23 linaclotide 290 mcg capsule 290 mcg PO DAILY PRN constipation 02/10/23 02/10/23 (Linzess) losartan 25 mg tablet 25 mg PO BID 02/10/23 02/10/23 oxcarbazepine 300 mg tablet 300 mg PO DAILY 02/10/23 02/10/23 oxcarbazepine 600 mg tablet 600 mg PO BEDTIME 02/10/23 02/10/23 oxybutynin chloride 5 mg 5 mg PO DAILY 02/10/23 02/10/23 tablet,extended release 24 hr pantoprazole 40 mg tablet,delayed 40 mg PO DAILY 02/10/23 02/10/23 release potassium citrate 10 mEq (1,080 20 meq PO BID 02/10/23 02/10/23 mg) tablet,extended release pregabalin 150 mg capsule 150 mg PO Q8H 02/10/23 02/10/23 quetiapine 100 mg tablet 100 mg PO DAILY 02/10/23 02/10/23 rimegepant 75 mg disintegrating 75 mg PO DAILY PRN migraine 02/10/23 02/10/23 tablet (Nurtec ODT) headache Allergies Allergy/AdvReac Type Severity Reaction Status Date / Time Iodinated Contrast Media Allergy Unknown Verified 02/10/23 13:11 Review of Systems ROS Narrative A ten point review of systems is negative except as noted above. Exam Narrative Exam Narrative: Nurses note and vital signs reviewed and patient is not hypoxic. General: The patient appears well and in no apparent distress. Patient is resting comfortably on cart. Skin: Warm, dry, no pallor noted. There is no rash noted. Head: Normocephalic, atraumatic Eye: Normal conjunctiva, no drainage Ears, Nose, Mouth, and Throat: oral mucosa is moist. Nares patent. Cardiovascular: Regular Rate and Rhythm Respiratory: Patient is in no distress, no accessory muscle use, lungs are clear to auscultation, no wheezing, rales or rhonchi Back: non-tender GI: soft and nontender Musculoskeletal: The patient has no evidence of calf tenderness, no pitting edema, symmetrical pulses noted bilaterally Neurological: A&O, normal speech Psychiatric: Cooperative Constitutional Vital Signs, click to edit/add: Last Vital Signs Temp 97.9 F 02/10/23 13:11 Pulse 85 02/10/23 15:10 Resp 14 02/10/23 15:10 BP 134/89 02/10/23 13:14 Pulse Ox 99 02/10/23 13:14 O2 Del Method Room Air 02/10/23 13:11 Course Vital Signs Vital signs: Vital Signs Temperature 97.9 F 02/10/23 13:11 Pulse Rate 94 H 02/10/23 13:11 Respiratory Rate 18 02/10/23 13:11 Blood Pressure 141/97 H 02/10/23 13:11 Pulse Oximetry 96 02/10/23 13:11 Oxygen Delivery Method Room Air 02/10/23 13:11 Temperature 97.9 F 02/10/23 13:11 Pulse Rate 85 02/10/23 15:10 Respiratory Rate 14 02/10/23 15:10 Blood Pressure 134/89 02/10/23 13:14 Pulse Oximetry 99 02/10/23 13:14 Oxygen Delivery Method Room Air 02/10/23 13:11 MDM - Chest Pain MDM Narrative Medical decision making narrative: Two sets of troponin are negative. The rest of her workup is negative as well and she felt improved after gastrointestinal cocktail. The diagnosis and follow-up were discussed with the patient. At this point I do not suspect cardiac etiology. Differential Diagnosis Differential diagnosis: Likely pneumothorax, unstable angina pectoris, atypical chest pain, st elevation myocardial infarction, costochondritis and other (GERD) Lab Data Attestation: I reviewed the patient's lab results. Labs: Lab Results 02/10/23 02/10/23 Range/Units 13:23 14:41 WBC 9.5 (4.0-11.0) 10^3/uL RBC 4.52 (4.20-5.40) 10^6/uL Hgb 11.2 L (12.0-16.0) g/dL Hct 35.9 L (36.0-48.0) % MCV 79.4 L (81.0-99.0) fL MCH 24.8 L (26.7-34.0) pg MCHC 31.2 (29.9-35.2) g/dL RDW 17.0 H (11.0-15.0) % Plt Count 275 (150-450) 10^3/uL MPV 11.8 (9.5-13.5) fL Neut % (Auto) 64.5 (43.0-75.0) % Lymph % (Auto) 25.9 (20.5-60.0) % [place] % (Auto) 7.4 (1.7-12.0) % Eos % (Auto) 1.2 (0.9-7.0) % Baso % (Auto) 0.7 (0.2-2.0) % Neut # (Auto) 6.2 (1.4-6.5) 10^3/uL Lymph # (Auto) 2.5 (1.2-3.8) 10^3/uL [place] # (Auto) 0.7 (0.3-0.8) 10^3/uL Eos # (Auto) 0.1 (0.0-0.7) 10^3/uL Baso # (Auto) 0.1 (0.0-0.1) 10^3/uL Abs Immat Gran (auto) 0.03 (0.00-0.03) 10^3/uL Imm/Tot Granulo (auto) 0.3 (0.0-0.5) % Sodium 136 (136-145) mmol/L Potassium 3.2 L (3.5-5.1) mmol/L Chloride 98 (98-107) mmol/L Carbon Dioxide 25.5 (21.0-32.0) mmol/L Anion Gap 15.7 BUN 12.0 (7.0-18.0) mg/dL Creatinine 0.90 (0.55-1.02) mg/dL Est GFR ( Amer) >60 (>=60) Est GFR (Non-Af Amer) >60 (>=60) BUN/Creatinine Ratio 13.3 Glucose 145 H (74-106) mg/dL Calcium 9.3 (8.5-10.1) mg/dL Troponin I High Sens <4.0 L <4.0 L (4.0-51.3) pg/mL Imaging Data Chest x-ray: Radiologist's impression: Procedure: XR chest 1V EXAM: XR chest 1V HISTORY: Chest pain. COMPARISON: 10/17/2020. TECHNIQUE: AP upright portable. FINDINGS: Overlying monitoring leads. Lung volumes are mildly diminished with associated accentuation of the cardiomediastinal contour. The lungs and the costophrenic angles are clear. IMPRESSION: Mildly diminished lung volumes. Electronically authenticated by: KSENIA UP Date: 02/10/2023 14:04 ECG Data Attestation: I personally reviewed and interpreted this ECG as follows: (EKG on my interpretation shows normal sinus rhythm with no acute findings and a rate of 89.) Heart Score History: Slightly/Non-Suspicious ECG: Normal Age: >45-<65 years Risk Factors: No Risk Factors Troponin: <Normal Limit Total Heart Score Recommendations & Risks:: 1 Discharge Plan Discharge Chief Complaint: Back Pain/Injury Clinical Impression: Chest pain Patient Disposition: Home, Self-Care Time of Disposition Decision: 15:17 Condition: Good Mode of Transportation: Private Vehicle Prescriptions / Home Meds: No Action allopurinol 100 mg tablet 100 mg PO DAILY baclofen 20 mg tablet 20 mg PO Q12H clindamycin phosphate 1 % lotion 1 applic TOPICAL BID clopidogrel 75 mg tablet 75 mg PO DAILY desvenlafaxine succinate 100 mg tablet extended release 24 hr 100 mg PO Q24H diclofenac sodium 75 mg tablet,delayed release (DR/EC) 75 mg PO Q12H famotidine 40 mg tablet 40 mg PO DAILY furosemide 40 mg tablet 40 mg PO DAILY losartan 25 mg tablet 25 mg PO BID oxcarbazepine 300 mg tablet 300 mg PO DAILY oxcarbazepine 600 mg tablet 600 mg PO BEDTIME oxybutynin chloride 5 mg tablet extended release 24hr 5 mg PO DAILY potassium citrate 10 mEq (1,080 mg) tablet extended release 20 meq PO BID pregabalin 150 mg capsule 150 mg PO Q8H quetiapine 100 mg tablet 100 mg PO DAILY Nurtec ODT 75 mg tablet,disintegrating 75 mg PO DAILY PRN (Reason: migraine headache) pantoprazole 40 mg tablet,delayed release (DR/EC) 40 mg PO DAILY Linzess 290 mcg capsule 290 mcg PO DAILY PRN (Reason: constipation) Instructions: Chest Pain (ED) Stand Alone Forms: Portal Instructions Referrals: Hunter Almanza MD [Primary Care Provider] - 1 week
[2023-02-10 15:10] LABS: Troponin I High Sensitivity <4.0 pg/mL (4.0-51.3)
== END 2023-02-10 15:33 | disposition home or self-care (01) ==
PROVIDERS: Emergency Provider Emergency Medicine; PCP Family Medicine
DX: R07.9 Chest pain, unspecified (principal)
CPT/HCPCS: 36415; 71045; 80048; 84484; 85025; 93005; 99285

== ENCOUNTER 2023-04-16 13:10 | Outpatient (OUT) | payer OTHER, MEDICARE, SELFPAY ==
--- NOTE | 2023-04-16 13:48 | FL_ITS ---
[address] [address] Patient Name: JESSICA CRISTINA MRN: [id number] date: 1975 Sex: F Assigned Patient Location: [place] Current Patient Location: [place] Accession/Order Number: [id number] Exam Date: 04/16/2023 13:25 Report Date: 04/16/2023 14:11 At the request of: FRANCESCO QUINTEROS Procedure: FL modified barium swallow EXAMINATION: FL modified barium swallow HISTORY: Dysphagia R13.10 COMPARISON: No relevant comparison available. TECHNIQUE: A swallowing evaluation was performed with fluoroscopy in the usual manner. Standard level fluoroscopic mode of operation utilized. Speech pathology was present. The procedure was recorded. 1.5 minutes of fluoroscopy FINDINGS: ORAL PHASE: Normal deglutition. PHARYNGEAL PHASE: Normal swallowing. ASPIRATION: None. STRUCTURE: Normal. No visible obstruction, stricture, or dilatation. OTHER: Negative. FL/ME modified barium swallow IMPRESSION: Normal modified barium swallow Electronically authenticated by: CHARLES COLINDRES Date: 04/16/2023 14:11
== END 2023-04-16 13:11 | disposition home or self-care (01) ==
LOC: FL 13:11
PROVIDERS: PCP Family Medicine; Visit Provider Family Medicine
DX: R13.10 Dysphagia, unspecified (principal)
CPT/HCPCS: 74230; 92611

== ENCOUNTER 2023-12-09 15:54 | Outpatient (REF) | payer OTHER, MEDICARE, SELFPAY ==
[2023-12-09 16:09] LABS: Bilirubin Urine NEGATIVE (NEGATIVE); Blood Urine SMALL (NEGATIVE); Clarity Urine CLEAR (CLEAR); Color Urine LT. YELLOW (YELLOW); Glucose Urine UA NEGATIVE (NEGATIVE); Ketones Urine NEGATIVE (NEGATIVE); Leukocyte Esterase Urine SMALL (NEGATIVE); Nitrite Urine POSITIVE (NEGATIVE); Protein Urine NEGATIVE (NEG/TRACE); Urobilinogen Urine 0.2 EU/dL (0.2-1.0)
[2023-12-09 17:57] LABS: Bacteria Urine MODERATE #/HPF (NONE SEEN); Mucus Urine SMALL (NONE SEEN); RBC Urine 0-2 #/HPF (0-2); Squamous Epithelial Cell Urine FEW #/LPF (NONE/RARE)
[2023-12-09 17:58] LABS: Cast Seen? NONE SEEN #/LPF (NONE SEEN); Crystals Seen? None Seen #/HPF (None Seen)
[2023-12-09 18:00] LABS: Urine Culture Indicated ALREADY ORDERED
== END 2023-12-09 15:55 | disposition home or self-care (01) ==
LOC: LAB 15:54
PROVIDERS: PCP Family Medicine; Visit Provider Family Medicine
DX: L03.90 Cellulitis, unspecified (principal); R30.0 Dysuria
CPT/HCPCS: 81001; 87070; 87075; 87086; 87150

== ENCOUNTER 2024-12-13 12:38 | Emergency (ER) | payer OTHER, MEDICARE, SELFPAY ==
--- OUTSIDE RECORDS SUMMARY | 2024-03-31 06:15 | XMS_ITS ---
Author Organization [facility] [place] Address [address] [place] [address] Care Team Providers Care Database Architect Name Role Phone Jorge Almanza Primary Care Provider REASON FOR VISIT annual Encounters Encounter Location Date Provider Diagnosis [facility] [address] [facility] [place] [address] 03/31/2024 Jorge Almanza Plan Of Treatment No Information Progress Notes * Ladi CRISTINA RDOB: 4 (49 yo F)Acc No.[id number]:03/31/2024 UNLOCKED PROGRESS NOTE Progress Note Patient: Ladi MENDEZ :?Hunter Almanza (LI), MDDOB:1975???Age: 48 Y???Sex:FemaleDate:03/31/2024Phone:[phone]:[address], [place] Subjective: * Chief Complaints: * 1 . Annual. * Medical History: Objective: * Vitals: Assessment: Plan: * Treatment: * * Electronic signature of Jorge Almanza MD, [id number] on 12/13/2024 at 12:48 PM EDT Sign off status: PendingVisit Status:?N/S N/C (No Show/No Charge) * Provider: Rasheed AngelesTTCMD Danielle Date: 0 03/31/2024 Generated for Printing/Faxing/eTransmitting on:?12/13/2024 12:48 PM EDT
[2024-12-13 12:41] VITALS: BP 157/79; PULSE 88; TEMP 36.9; O2SAT 99; BMI 33.3
--- OUTSIDE RECORDS SUMMARY | 2024-12-13 12:48 | XMS_ITS | Clinical Summary ---
Author Organization [facility] Address [address] [place] [address] Care Team Providers Care Associate Relations Specialist Name Role Phone Unavailable Primary Care Provider Unavailabl e Social History Tobacco UseTypesPacks/DayYears UsedDateSmoking Tobacco: Never Assessed CommentsUnknownSex and Gender InformationValueDate RecordedSex Assigned at Not on fileLegal FeeAavhoj25/30/2022 12:28 AM EDTGender IdentityNot on file Sexual OrientationNot on file Plan of Treatment Not on file
--- OUTSIDE RECORDS SUMMARY | 2024-12-13 12:48 | XMS_ITS | Clinical Summary ---
Author Organization [facility] Address [address] [place] [address] Care Team Providers Care Police Department Secretary Name Role Phone Hunter Almanza MD Primary Care Provider [phone] Yimi Nina DO Unavailable [phone] Bella Fraser PA-C Unavailable Unavailable Allergies Active AllergyReactionsCriticalityNoted DateCommentsAmitriptyline HclRashLow 12/14/20202708VoyiqgkXpvgzkvvDnb10/08/2019Gadolinium-Containing Contrast Media JorazyaldpoMqrl20/08/2019 Medications MedicationSigDispense QuantityRefillsLast FilledStart DateEnd DateStatus pantoprazole DR (PROTONIX) 40 mg tablet Take 1 tablet by mouth once daily.04/17/2016Active losartan (COZAAR) 25 mg tablet Take 25 mg by mouth once daily. takes twice daily.Active SUMAtriptan (IMITREX) 100 mg tablet Take 100 mg by mouth as needed.Active hyoscyamine sublingual (LEVSIN SL) 0.125 mg subl Dissolve 0.125 mg under the tongue as needed.Active clopidogrel (PLAVIX) 75 mg tablet clopidogrel 75 mg Tab Refills(s) 0 Start Date: 06/01/21 Status: Rfrtipv4006/01/2021 Active desvenlafaxine 100 mg Tb24 Take 100 mg by mouth.05/11/2017Active diclofenac, EC, (VOLTAREN) 75 mg EC tablet Take by mouth.06/01/2021ctive docusate sodium (COLACE) 100 mg capsule Take by mouth.02/26/2020ctive famotidine (PEPCID) 40 mg tablet Take 40 mg by mouth.08/13/2019Active fluticasone-vilanterol (BREO ELLIPTA) 100-25 mcg/dose inhaler INHALE 1 PUFF BY MOUTH ONCE DAILY08/11/2021ctive furosemide (LASIX) 20 mg tablet Take by mouth.08/13/2019Active OXcarbazepine (TRILEPTAL) 300 mg tablet TAKE 1 AND 1/2 - 2 TABLETS BY MOUTH LEGXSYXR45/27/2022ctive QUEtiapine (SEROQUEL) 100 mg tablet TAKE 1 TABLET BY MOUTH EVERYDAY AT VJEOHOX3707/27/2021ctive pregabalin (LYRICA) 150 mg capsule Take 1 capsule by mouth four times daily for 180 days.09/22/2021ctive potassium chloride (K-TAB) 10 mEq tablet Take 2 tablets by mouth twice daily.09/27/2021ctive linaCLOtide (LINZESS) 290 mcg capsule Take 1 capsule by mouth DAILY (6 AM).09/27/2021ctive meclizine (ANTIVERT) 25 mg tab Take 1 tablet by mouth every 4 hours as needed (for dizziness.).09/27/2021ctive ascorbic acid, vitamin C, (VITAMIN C) 500 mg tablet Take 1 tablet by mouth once daily.09/27/2021ctive rimegepant (NURTEC ODT) 75 mg disintegrating tablet Take 1 tablet by mouth once daily as needed. 32 tablet 10/13/2021ctive traMADol (ULTRAM) 50 mg tablet Take 1 tablet by mouth as needed.01/24/2022ctive allopurinol (ZYLOPRIM) 100 mg tablet Take 1 tablet by mouth every afternoon.01/26/2023ctive oxybutynin XL (DITROPAN XL) 5 mg 24 hr tablet Take 1 tablet by mouth every afternoon.01/02/2023ctive K-PHOS ORIGINAL 500 mg tablet Take 1 tablet by mouth every 12 hours.10/30/2022ctive methocarbamol (ROBAXIN) 500 mg tablet TAKE 1 TABLET BY MOUTH IN THE MORNING AND 2 TABLETS AT NIGHT 90 tablet 507/ctive ubrogepant (UBRELVY) 50 mg tablet Take 1 tablet by mouth as needed. 10 tablet 407/30/2024Active baclofen 20 mg tablet TAKE 1 TABLET BY MOUTH TWICE A DAY 180 tablet 5Active Active Problems ProblemNoted DateDiagnosed DateAcute transverse hqebgdfw57/16/2023Obesity, Class I, BMI 30-34.91Uveitic glaucoma of right eye, mild stage04/02/2017 Overview (04/02/2017): Added automatically from request for surgery [id number] Qggfvu0103/22/2016Pain of right sacroiliac joint12/20/2015DDD (degenerative disc disease), laevedajlyr81/01/2016Hypoglycemic reaction Encounters DateTypeDepartmentCare TsrkQnavoqerojf16/15/2025 Patient Msg Neurology [address] [id number] Sonia Benítez MD Appointment Xglckou0209/17/2024[facility] [address] [place] [address] Cathy Helton PA-C Refill Requestfrom Last 3 Months Immunizations ImmunizationAdministration DatesNext Dueinfluenza (IIV4) vaccine, age 6 mo - 64 yr, quadrivalent, PF (AFLURIA, FLUARIX, FLULAVAL, FLUZONE)12/04/2016 Family History Medical HistoryRelationCommentsArthritisFatherDiabetesFatherHypertensionFather Rheumatologic diseaseFatherCataractMaternal GrandfatherCataractMaternal GrandmotherCancerMotherGIMotherDiverticulitisHeartMotherCOPDStrokeMother Rheumatologic diseasePaternal AuntCataractPaternal GrandfatherCataractPaternal GrandmotherRelationStatusCommentsFatherMaternal GrandfatherMaternal Grandmother MotherPaternal AuntAlivePaternal GrandfatherPaternal Grandmother Social History Tobacco UseTypesPacks/DayYears UsedDateSmoking Tobacco: NeverSmokeless Tobacco: Never Tobacco Cessation:Counseling Given: Not Answered Alcohol UseStandard Drinks/WeekCommentsNo0 (1 standard drink = 0.6 oz pure alcohol)PHQ-2AnswerDate RecordedPHQ-2 glvmn364rea Deprivation Index AnswerDate RecordedNational Score (1-100), lower number is lower risk53 07/09/2022State Score (1-10), lower number is lower sbuh661ata from: https://www.neighborhoodatlas.medicine.[facility].edu/. Last address used for qrk[address]ric[address]CommentsNoSex and Gender InformationValueDate RecordedSex Assigned at BirthNot on fileLegal SexFemale 01/20/2012 10:18 AM ESTGender IdentityNot on fileSexual OrientationNot on file OccupationIndustryJob Start DateJob End DateSTNANot on fileNot on fileNot on file Last Filed Vital Signs Vital SignReadingTime TakenCommentsBlood Znscxuto024/8301/30/2023 1:16 PM EST Izcvw889001/30/2023 1:16 PM ORUYqzarspmitg66.3 ??C (97.3 ??F)10/20/2021 8:33 AM EDTRespiratory Nlif661803/28/2022 10:09 AM ESTOxygen Jwahdofesp28%01/30/2023 1:16 PM ESTInhaled Oxygen Concentration--Rkslje66.3 kg (210 lb)02/07/2022 12:54 PM KUPClhjru202.1 cm (5' 5 )02/07/2022 12:54 PM ESTBody Mass Index34.9502/07/2022 12:54 PM EST Plan of Treatment Health MaintenanceDue DateLast DoneCommentsAnxiety Nlwcjgukj59/14/1992Depression Zxcxfdgvs69/14/1992HIV Zjpaghxqs33/14/1992Hepatitis C Eaqxpbdzb58/14/1992 DTaP,Tdap,Td Vaccine (1 - Tdap)1992Hepatitis B Vaccine (1 of 3 - 19+ 3- dose series)1992Cervical Cancer Pbrwonaaq15/14/1995Mammogram Screening 2013CT Shsgfxlbbeei24/14/2019Cologuard (FIT-DNA)2018Colonoscopy 2018Colorectal Cancer Aegfltenb40/14/2019Fecal Occult Blood2018Lipid Avfyflbly67/14/2950Cmwatkdpkzdjb80/14/2019Pneumococcal Vaccine: 50+ (1 of 1 - PCV)05/02/2023Shingrix Vaccine (1 of 2)05/02/2023ovid-19 Vaccine (4 - 2024- season)/, 06/15/2020, 05/25/2020Influenza Vaccine (#1) /Diabetes Inpdzxiow00/03/2021, 03/28/2018, 04/20/2016 Medical Devices ImplantedTypeAreaManufacturerDevice IdentifierShelf Expiration DateModel / Serial / LotDrain Ahmed Flexible Plate .635mm .305mm Thk.9mm Blunt Taper Silicone 16x13 - [id number] Implanted:Qty[facility]plantRight: EyeProsperity CatalystW [employer]01/07/2019FP7 / [id number] / [id number] Tutoplast Pericardium 1.5x1.5cm Soft Tissue Allograft Processed - [id number] Implanted:Qty: 1 [facility]10/[facility]TissueRight: EyeKATENA AHLULOAV21/31/[id number] / [id number] / [id number] Procedures Procedure NamePriorityDate/TimeAssociated DiagnosisCommentsCOMPREHENSIVE METABOLIC ODTYRMansyhj15/02/2022 10:38 AM EDT Spastic hemiplegia of right dominant side due to noncerebrovascular etiology (HCC) from Last 3 Months or Most Recently Relevant to Health Maintenance Results * (ABNORMAL) COMP METABOLIC PANEL (10/20/2021 10:38 AM EDT)ComponentValueRef RangeTest MethodAnalysis TimePerformed AtPathologist SignatureProtein, Total 6.36.3 - 8.0 g/dL10/20/2021 2:37 PM [facility]TC[facility] LABAlbumin 4.73.9 - 4.9 g/dL10/20/2021 2:37 PM [facility] Calcium, Total9.88.5 - 10.2 mg/dL10/20/2021 2:37 PM [facility] LABBilirubin, Total0.20.2 - 1.3 mg/dL10/20/2021 2:37 PM [facility] LABAlkaline Jnmskagtvth1312 - 123 U/L10/20/2021 2:37 PM EDT [facility] JQCOPZ78(H)13 - 35 U/L10/20/2021 2:37 PM EDT [facility] YYQXNY530 - 38 U/L10/20/2021 2:37 PM [facility] KNVBvgdyml380(H)74 - 99 mg/dL10/20/2021 2:37 PM EDT [facility] LABComment: The [place] Diabetes Association (ADA) provides guidance for cutoff values for fasting glucose andrandom glucose. The ADA defines fasting as no caloric intake for at least 8 hours. Fasting plasma glucose results between 100 to 125 mg/dL indicate increased risk for diabetes (prediabetes). Fasting plasma glucose results greater than or equal to 126 mg/dL meet the criteria for diagnosis of diabetes. In the absence of unequivocal hyperglycemia, results should be confirmed by repeat testing. In a patient with classic symptoms of hyperglycemia or hyperglycemic crisis, random plasma glucose results greater than or equal to 200 mg/dL meet the criteria for diagnosis of diabetes. Reference: Standards of Medical Care in Diabetes 2016, [place] Diabetes Association. Diabetes Care. 2016.39(Suppl 1). CKN816 - 21 mg/dL10/20/2021 2:37 PM [facility] LAB Creatinine0.770.58 - 0.96 mg/dL10/20/2021 2:37 PM [facility] GEDGcbmso027939 - 144 mmol/L10/20/2021 2:37 PM [facility] LABPotassium4.33.7 - 5.1 mmol/L10/20/2021 2:37 PM [facility] PYOYrdthqtj2783 - 105 mmol/L10/20/2021 2:37 PM [facility] ATDMS62407 - 30 mmol/L10/20/2021 2:37 PM [facility] LABAnion Iyu888 - 18 mmol/L10/20/2021 2:37 PM [facility] LABEstimated Glomerular Filtration Rate95>=60 mL/min/1.73m 10/20/2021 2:37 PM EDMEM[facility] LABComment:Estimated Glomerular Filtration Rate (eGFR) is calculated using the 2020 CKD-EPI creatinine equation. This equation utilizes serum creatinine, sex, and age as parameters. The creatinine assay has traceable calibration to isotope dilution- mass spectrometry. Refer to KDIGO guidelines for clinical interpretation. In patients with unstable renal function, e.g. those with acute kidney injury, the eGFRmay not accurately reflect actual GFR.Specimen (Source)Anatomical Location / LateralityCollection Method / VolumeCollection TimeReceived TimeBloodBLOOD SPECIMEN / UnknownVenipuncture / Lcfckif4610/20/2021 10:38 AM EDT10/20/2021 10:38 AM EDT Narrative Authorizing ProviderResult TypeResult StatusRula Francesco Sood MDLABORATORYFinal ResultPerforming OrganizationAddressCity/State/ZIP CodePhone Number [facility] [address] [address], from Last 3 Months or Most Recently Relevant to Health Maintenance Insurance MemberSubscriberPlan / Payer (Effective 2020-Present)Name:Ladi Cristina Member ID:[id number] Relation to Subscriber:SelfName:Ladi Cristina Subscriber ID:[id number] Payer ID:Not on file Type:Medicare Address: [address] [place] [id number] Care Teams Team MemberRelationshipSpecialtyStart Hunter Almanza MD PCP - GeneralFamily Qtkokhsn64/13/12 Yimi Nina DO [address] [place] [address] [address] [place] [address] ReferringOphthalmology04/10/17 Bella Fraser PA-C NI Referring Team01/09/21
--- OUTSIDE RECORDS SUMMARY | 2024-12-13 12:48 | XMS_ITS | Patient Health Record ---
Author Organization [facility] Address [address] [place] [address] Care Team Providers Care Photoengraving Etcher Apprentice Name Role Phone Hunter Almanza Primary Care Provider Rusty Castro [facility] [phone] Reason For Referral No Information Social History Tobacco Use: Social History Observation Description Date Details (start date - stop date) Never Smoker NA - NA Smoking History Question Answer Notes Smoking Status NonSmoker Problems Problem Type SNOMED Code ICD Code Onset Dates Problem Status W/U Status Risk Notes Problem 14332501 Contracture, 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
--- OUTSIDE RECORDS SUMMARY | 2024-12-13 12:48 | XMS_ITS | Clinical Summary ---
Author Organization Retrevo tem Address [facility] [place] [place] [address] [place] [address] Care Team Providers Care Flight Kitchen Manager Name Role Phone Unavailable Primary Care Provider Unavailabl e Social History Tobacco UseTypesPacks/DayYears UsedDateSmoking Tobacco: Never Assessed CommentsUnknownSex and Gender InformationValueDate RecordedSex Assigned at Not on fileLegal HpjIctzto41/28/2021 11:48 AM EDTGender IdentityNot on file Sexual OrientationNot on file Plan of Treatment Health MaintenanceDue DateLast DoneCommentsDepression Gpdeicmau76/14/1986Tobacco Mqdzldtas31/14/1986Adult BMI Vpxsvivfj92/14/1992DTaP,Tdap and Td Vaccines (1 - Tdap)1992Pap Smear1994Zoster (Shingles) Vaccine (1 of 2)05/02/2023 Influenza Ecevbwg6210/19/2024 Medical Devices Not on file Insurance * Guarantor: Ladi CristinaAccount TypeRelation to PatientDate of BirthPhone Billing AddressPersonal/BwxocuMgna86[birth year][address] [place] [address]
--- OUTSIDE RECORDS SUMMARY | 2024-12-13 12:48 | XMS_ITS | Clinical Summary ---
Author Organization [facility] Address [address] [place] [address] Care Team Providers Care Corrugator Machine Operator Name Role Phone Unavailable Primary Care Provider Unavailabl e Social History Tobacco UseTypesPacks/DayYears UsedDateSmoking Tobacco: Never Assessed CommentsUnknownSex and Gender InformationValueDate RecordedSex Assigned at Not on fileLegal SpaEgvlsr72/15/2023 7:00 PM EDTGender IdentityNot on fileSexual OrientationNot on file Last Filed Vital Signs Vital SignReadingTime TakenCommentsBlood Syxwmomu243/8502 12:00 PM EST Pulse--Temperature--Respiratory Rate--Oxygen Saturation--Inhaled Oxygen Concentration--Ciqian87.7 kg (200 lb)05/10/2020 12:00 PM VBWAtadrh333.6 cm (5' 4 )05/10/2020 12:00 PM EDTBody Mass Index34.33005/10/2020 12:00 PM EDT Plan of Treatment Not on file Insurance * Guarantor: Ladi Gutierrez TypeRelation to PatientDate of BirthPhone Billing AddressPersonal/TwrvohMtjd49/14/1976 [address] [place] [address]
--- OUTSIDE RECORDS SUMMARY | 2024-12-13 12:49 | XMS_ITS | Patient Health Record ---
Author Organization [facility] in [place] Address [address] [place] [address] Care Team Providers Care Mate Relief Name Role Phone Jorge Almanza Primary Care Provider [phone] Allergies Allergen (clinical drug ingredient) Drug/Non Drug Allergy documented on EMR Reaction Allergy Type Onset Date Status amitriptyline Amitriptyline nausea and vomiting Drug Aller gy Active Reason For Referral No Information Medications Medication SIG (Take, Route, Frequency, Duration) Notes Start Date End Date Status Cefdinir 300 MG 2 capsule Orally once a day; Dur ation: 10 days 5ActiveDaypro 600 MG2 tablets Orally daily; Duration: 20 days05/25/2024 ActiveClopidogrel Bisulfate 75 MGTAKE 1 TABLET BY MOUTH EVERY DAY; Duration: 90 ActiveDiclofenac Sodium 75 MGTAKE 1 TABLET BY MOUTH TWICE A DAY; Duration: 30 ActiveDesvenlafaxine Succinate ER 100 MGTAKE 1 TABLET BY MOUTH EVERY DAY; Duration: 90ActiveBaclofen 20 MG1 tablet as needed Orally Twice a dayActive Reglan 10 MG1 tablet before meals Orally Twice a dayActiveAllopurinol 100 MGTAKE 1 TABLET BY MOUTH EVERY DAY FOR 30 DAYS; Duration: 90ActiveQUEtiapine Fumarate 100 MGTAKE 1 AND 1/2 TABLETS BY MOUTH EVERY DAY AT BEDTIME FOR 90 DAYS; Duration: 90ActiveBreo Ellipta 100-25 MCG/ACTINHALE 1 PUFF BY MOUTH EVERY DAY; Duration: 90ActivetiZANidine HCl 4 MG1 in am, in in afgternoon and tow at hs Orally tid; Duration: 30 days5ActiveoxyBUTYnin Chloride ER 5 MGTAKE 1 TABLET BY MOUTH EVERY DAY; Duration: 90ActivePotassium Chloride ER 20 MEQ2 tablets Orally bid; Duration: 30 days02/14/2024ctiveOXcarbazepine 300 MGTAKE 1 TABLET BY MOUTH IN THE MORNING AND 2 TABLETS AT BEDTIME; Duration: 30Active Famotidine 40 MGTAKE 1 TABLET BY MOUTH EVERY DAY; Duration: 90Active Methocarbamol 500 MG1 in am nad 2 at hs Orally bid; Duration: 30 days02/14/2024 ActiveMeclizine HCl 25 MG1 tablet as needed Orally every 12 hrsActiveOndansetron 4 MG1 tablet on the tongue and allow to dissolve Orally Once a dayActive Pantoprazole Sodium 40 MGTAKE 1 TABLET BY MOUTH TWICE A DAY; Duration: 90 days ActiveK-Phos 500 MG2 tablets dissolved in water with meals and at bedtime Orally Four times a dayActiveClindamycin Phosphate 1 %APPLY TO AFFECTED AREA TWICE A DAY; Duration: 30ActiveLyrica 150 MG1 capsule Orally QIDActiveLosartan Potassium 25 MGTAKE 1 TABLET BY MOUTH TWICE A DAY; Duration: 90 daysActiveImitrex 100 MG1 tablet at least 2 hours between doses as needed Orally Twice a day12/09/2023 ActiveFurosemide 40 MGTAKE 1 TABLET BY MOUTH EVERY DAY; Duration: 90Active Social History Tobacco Use: Social History Observation Description Date Details (start date - stop date) Never Smoker NA - NA Tobacco Use/Smoking Question Answer Notes Patient is a nonsmoker Alcohol Screen (Audit-C) Question Answer Notes Did you have a drink containing alcohol in the p ast year? No Rcdjnj0AfqwdnsvcethyrNvoegiqyTRRDY-B (Standard) Question Answer Notes Did you have a drink containing alcohol in the p ast year? No Jjuape0SzwmdadzohtbtzBumjpjgy Problems Problem Type SNOMED Code ICD Code Onset Dates Problem Status W/U Status Risk Notes Problem Multiple sclerosis (49990414) Multiple sc lerosis (G35) ActiveconfirmedProblemMonoplegia of lower limb affecting dominant side (553733885)Monoplegia of lower limb affecting right dominant side (G83.11)Active confirmedProblemMonoplegia of upper limb of dominant side (698659453)Monoplegia of upper limb affecting right dominant side (G83.21)ActiveconfirmedProblem Gastroparesis (418295620)Gastroparesis (K31.84)ActiveconfirmedProblemPrimary gout (09825356)Idiopathic gout, unspecified ankle and foot (M10.079)Active confirmedProblemContracture of joint of shoulder region (88565656)Contracture, 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)ActiveconfirmedProblemPain of right shoulder region (finding) (5320198595)Pain in right shoulder (M25.511)ActiveconfirmedProblem Chest pain (90077742)Chest pain (R07.9)ActiveconfirmedProblemRecurrent urinary tract infection (004285456)Recurrent UTI (N39.0)ActiveconfirmedProblemNeck pain (19647305)Neck pain (M54.2)ActiveconfirmedProblemEdema (52091033)Edema (R60.9) ActiveconfirmedProblemEssential hypertension (43172573)Essential hypertension (I10)ActiveconfirmedProblemAnxiety state (076917311)Acute anxiety (F41.9)Active confirmedProblemDyspnea (067433402)Dyspnea (R06.00)ActiveconfirmedProblem Migraine (35973856)Migraine (G43.909)ActiveconfirmedProblemDehydration (11355885)Dehydration (E86.0)ActiveconfirmedProblemAcute sinusitis (44312618) Acute sinusitis (J01.90)ActiveconfirmedProblemHypersomnia (11644891)Hypersomnia (G47.10)ActiveconfirmedProblemConstipation (33970369)Constipation (K59.00)Active confirmedProblemWell adult (661186448)Well adult (Z00.00)ActiveconfirmedProblem Dysphagia (14506256)Dysphagia (R13.10)ActiveconfirmedProblemCellulitis (123003929)Cellulitis (L03.90)ActiveconfirmedProblemAmnesia (76431949)Poor short term memory (R41.3)ActiveconfirmedProblemPlantar fasciitis (936991246)Plantar fasciitis (M72.2)ActiveconfirmedProblemFrozen shoulder (857320083)Frozen shoulder (M75.00)ActiveconfirmedProblemDegeneration of cervical intervertebral disc (92346488)Degenerative cervical disc (M50.30)ActiveconfirmedProblem Epigastric pain (36848766)Abdominal pain, epigastric (R10.13)Activeconfirmed ProblemAnkle edema (31428449)Ankle edema (R60.0)ActiveconfirmedProblemNuclear sclerosis (481670846)Nuclear sclerosis (H25.10)ActiveconfirmedProblemOtitis externa (8901799)External otitis (H60.90)ActiveconfirmedProblemGastro-esophageal reflux disease (930771754)Gastro-esophageal reflux disease (K21.9)Active confirmedProblemChronic sinusitis (89474695)Other sinusitis (J32.9)Active confirmedProblemAnterior uveitis (926145491)Anterior uveitis (H20.9)Active confirmedProblemCorpus luteum cyst (962694665)Corpus luteum cyst of right ovary (N83.11)ActiveconfirmedProblemPrimary iridocyclitis of right eye (453454997063822)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 ProblemReflex sympathetic dystrophy of the lower limb (G90.529)Activeconfirmed ProblemOther specified intestinal obstruction, unspecified whether partial or complete (K56.699)ActiveconfirmedProblemBlindness - both eyes (disorder) (308255016)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)ActiveconfirmedProblemDisease caused by Severe acute respiratory syndrome coronavirus 2 (disorder) (688980431)COVID-19 virus infection (U07.1)ActiveconfirmedProblemHeadache (77818781)Headache, unspecified (R51.9)ActiveconfirmedProblemNew daily persistent headache (disorder) (072717026996688)Persistent headaches (R51.9)ActiveconfirmedProblem Cough (finding) (40431336)Other cough (R05.8)Activeconfirmed Vital Signs Blood pressure diastolic 82 mm Hg 08/10/2024 Wgjzry18 in08/10/2024lood pressure sveyjder078 mm Hg08/10/2024 Encounters Encounter Location Date Provider Diagnosis [facility] [address] [place] [facility] [address] 08/10/2024 Jorge Jacoby Recurrent UTI N39.0 [facility] [address] [facility] [place] [address] 02/14/2024 Jorge Hoy Monoplegia of upper limb affecting right dominant side G83.21 ; Gastroparesis K31.84 ; Essential hypertension I10 and Constipation K59.00 [facility] [address] [place] [place] [place] [address] 05/25/2024 Jorge Jacoby Reflex sympathetic dystrophy of the lower limb G90.529 [facility] [address] [place] [place] [address] 02/28/2024 Jorge Jacoby [facility] [place] [place] [place] [address] 03/26/2024Doug [facility] [place] [place] [place] [address]/10/2024[facility] [facility] [place] [address]/Doug HoyScreening for breast cancer Z12.31 [facility] [place] [place] [address] 05/25/2024Doug [facility] [place] [place] [place] [address]/Doug [facility] [place] [place] [place] [address]/Doug [facility] [place] [place] [place] [address]/Doug HoyUTI (urinary tract infection) N39.0[facility] [place] [place] [address]/06/2024Doug HoyRecurrent UTI N39.0[facility] [address] [place] [address]/Doug [facility] [place] [address]/Jorge Almanza Assessments Encounter Date Diagnosis (ICD Code) Assessment Notes Treatment Notes Treatment Clinical Notes Section Notes 02/14/2024 Monoplegia of upper limb affecting right dominant side (ICD-10 - G83.21) 02/14/2024Gastroparesis (ICD-10 - K31.84)05/25/2024Reflex sympathetic dystrophy of the lower limb (ICD-10 - G90.529)08/10/2024Recurrent UTI (ICD-10 - N39.0) 04/15/2024Screening for breast cancer (ICD-10 - Z12.31)06/08/2024UTI (urinary tract infection) (ICD-10 - N39.0)06/22/2024Recurrent UTI (ICD-10 - N39.0) 02/14/2024Essential hypertension (ICD-10 - I10)02/14/2024onstipation (ICD-10 - K59.00)05/25/2024OtherRecommended to rest and use a heating pad on the area. Take NSAIDs for pain as needed Plan Of Treatment Pending Test Test Name Order Date UA (URINALYSIS, COMPLETE) 12/09/2023 UA (URINALYSIS, COMPLETE) 06/08/2024 UA (URINALYSIS, COMPLETE) 06/22/2024 UA (URINALYSIS, MICRO ONLY) 06/08/2024 URINE CULTURE 12/09/2023 SUPERFICIAL WOUND CULTURE 08/20/2022 Culture, Wound 12/09/2023 CULTURE URINE 06/22/2024 CULTURE URINE 06/08/2024 CULTURE URINE 08/20/2022 CULTURE WOUND 11/07/2022 UA RANDOM W or MICROSCOPIC 08/20/2022 URINE MICROSCOPIC ONLY 12/09/2023 URINE MICROSCOPIC ONLY 06/22/2024 MG MAMM SCREEN 3D BEHZAD CAD 04/15/2024 XR MODIFIED BARIUM SWALLOW 04/01/2023 Insurance Providers Payer Name Payer Address Payer Phone Subscriber Number Group Number Insured Name Patient Relationship to Insured Coverage Start Date Coverage End Date CIARA PIERRE [address] [place] [address] [id number] BrendaJerome Spouse - patient is the spouse of the insured [place] [id number] Rosita Gutierrezelf - patient is the insured Medications Administered Medication Instructions Date of Administration Dosage Notes Kenalog-40 380 cc85Eopmhikwt Mbpjzritxwob88/21/562400 ca35Akwujkkcf Tromethamine 0 jz17Yrdjpzjxz Oxztqdjezyow06/03/416506 ke92Xhckipndh Tromethamine 460 rf91Jvntfiqxp Hkltwdjxmndk94/21/280941 sv18Ejmfbpves Tromethamine 560 mgOrphenadrine Gygawlv17/21/692012 uz71Utbekizlnrmm Citrate kq62Nykpexdnufsl Uaymyph86/12/221893 wm22Icbcubgydqic Citrate 560 mgPromethazine, 25 mg325 di19Ppcoepefslkw, 25 mg3 25 tv08Sqjtgxjwgrkc, 25 mg450 iv37Kiovzsuionnra 40 mg/ml580 mg Medical (General) History Medical History History ICD Code Abdominal pain, epigastric R10.13 Acute sinusitis J01.90 COVID-19 virus infection U07.1 Monoplegia of upper limb affecting right dominant side G83.21 Monoplegia of lower limb affecting right dominant side G83.11 Pain in right shoulder M25.511 Other sinusitis J32.9 Other cough R05.8 Headache, unspecified R51.9 Edema R60.9 Dyspnea R06.00 Poor short term memory R41.3 Hypersomnia G47.10 Neck pain M54.2 Gastroparesis K31.84 Dehydration E86.0 External otitis H60.90 Other specified intestinal o bstruction, unspecified whether partial or complete K56.699 Bilateral blindness H54.3 Constipation K59.00 Corpus luteum cyst of right ovary N83.11 Persistent headaches R51.9 Reflex sympathetic dystrophy of the lowe r limb G90.529 Degenerative cervical disc M50.30 Essential hypertension I10 Ankle edema R60.0 Anterior uveitis H20.9 Nuclear sclerosis H25.10 Primary iridocyclitis of right eye H20.0 11 Acute anxiety F41.9 Gastro-esophageal reflux disease K21.9 Well adult Z00.00 Plantar fasciitis M72.2 Surgical History Surgery Date(Month/Year) Botox injections Cystoscopy
--- OUTSIDE RECORDS SUMMARY | 2024-12-13 12:49 | XMS_ITS | Patient Health Record ---
Author Organization [facility] es Address [address] [place] [address] Care Team Providers Care Plug Drill Operator Name Role Phone Dr. Sam Sanders Primary Care Provider Reason For Referral No Information Plan Of Treatment No Information Insurance Providers Payer Name Payer Address Payer Phone Subscriber Number Group Number Insured Name Patient Relationship to Insured Coverage Start Date Coverage End Date [employer] [address] [place] [address] [id number] JONNIE AYDINmelinda - patient is the [id number] 2022[place] [id number] AYDINmelinda - patient is the [id number] 2022[facility] AET[employer] MEDICARE[address] [address] [place] [id number], MICHELLESmelinda - patient is the insured 2022
--- OUTSIDE RECORDS SUMMARY | 2024-12-13 12:49 | XMS_ITS | CCD ---
Author Organization [facility] Care Team Providers Care Box Coverer Hand Name Role Phone Hunter Quinteros MD Primary Care Provider Yimi Nina Unavailable [phone] Bella Fraser PA-C Unavailable Unavailable Hunter Quinteros Primary Care Physician Charo Roblero Unavailable Unavailable Hunter Quinteros MD Primary Care Provider Yimi Nina Unavailable Bella Fraser PA-C Unavailable Unavailable Hunter Quinteros MD Primary Care Provider [phone] Yimi Nina Unavailable Bella Fraser PA-C Unavailable Unavailable Hunter Quinteros MD Primary Care Provider Yimi Nina Unavailable Bella Fraser PA-C Unavailable Unavailable MD Hunter Quinteros Primary Care Provider [phone] MD Yaakov Greenwood Attending Provider [phone] LILIA NIELSEN Admitting Unavailable LILIA NIELSEN Consulting Unavailable LILIA NIELSEN Attending Unavailable DR HUNTER LORENZANA Primary Care Unavailable ALDAIR Amaya, DR MAYA Admitting Unavailable DR HUNTER LORENZANA Primary Care Unavailable DR HUNTER LORENZANA Consulting Unavailable ALDAIR Amaya, DR MAYA Attending Unavailable TRAMAINE, DR DINORAH Tamayo Consulting Unavailable DIAB ., YUDI Consulting Unavailable LISANDRA ., YUDI Attending Unavailable DR HUNTER LORENZANA Primary Care Unavailable LISANDRA ., YUDI Admitting Unavailable LILIA NIELSEN Admitting Unavailable LILIA NIELSEN Consulting Unavailable LILIA NIELSEN Attending Unavailable DR HUNTER LORENZANA Primary Care Unavailable Hunter Quinteros Primary Care Unavailable Yaakov Greenwood P Attending Unavailable Yaakvo Greenwood P Admitting Unavailable Yaakov Greenwood P Attending Unavailable Yaakov Greenwood P Admitting Unavailable Hunter Quinteros Primary Care Unavailable Bella Fraser PA-C Unavailable Hunter Quinteros MD Primary Care Provider [phone] Yimi Nina DO Unavailable Orzech, Sarai X Admitting Unavailable Orzech, Sarai X Attending Unavailable Kina Lee Attending Unavailable Orzech, Sarai X Attending Unavailable Galea, Lakia J Attending Unavailable Galea, Lakia J Attending Unavailable Orzech, Sarai X Attending Unavailable Orzech, Sarai X Admitting Unavailable Galea, Lakia J Attending Unavailable Galea, Lakia J Admitting Unavailable Galea, Lakia J Attending Unavailable JUSTINA FUENTES Attending Unavailable HUNTER QUINTEROS Primary Care Unavailable GRISEL CR Attending Unavailab le Galea, Lakia J Attending Unavailable GRISEL CR Attending Unavailab le Hunter Quinteros Admitting Unavailable Hunter Quinteros Attending Unavailable Hunter Quinteros Referring Unavailable Camilo Deras Admitting Unavailable Camilo Deras Attending Unavailable Hunter Quinteros Referring Unavailable Camilo Deras Admitting Unavailable Camilo Deras Attending Unavailable Hunter Quinteros Referring Unavailable Galea, Lakia J Attending Unavailable Galea, Lakia Sameer Attending Unavailable Galea, Lakia J Attending Unavailable Galea, Lakia J Attending Unavailable Galea, Lakia J Attending Unavailable Galea, Lakia J Attending Unavailable Galea, Lakia J Attending Unavailable Yaakov GREENWOOD P Attending Unavailable Orzech, Sarai X Attending Unavailable Orzech, Sarai X Attending Unavailable Orzech, Sarai X Attending Unavailable GRISEL CR Attending Unavailab le Orzeneeru, Sarai X Attending Unavailable GRISEL CR Attending Unavailab Camilo Adkins Attending Unavailable Remi Quintero Referring Unavailable MARILIA SIU Attending Unavailable MARILIA SIU Referring Unavailable Camilo Deras Admitting Unavailable Camilo Deras Attending Unavailable Hunter Quinteros Referring Unavailable Allergies Allergy ClassificationReported Allergen(s)Allergy TypeDate of OnsetReaction(s) FacilityCabbage preparation (1 source)Cabbage preparationDrug AllergyVomitus (substance), Diarrhea (finding) [facility])Contrast mediaSubstance Allergythroat [facility] (20 sources)Cabbage preparation; Translations: [CABBAGE]Drug [id number] Vomiting, Vomitus (substance), Diarrhea (finding)[facility] (20 sources)GADOLINIUM-CONTAINING CONTRAST MEDIA; Translations: [GADOLINIUM- CONTAINING CONTRAST MEDIA]Propensity to adverse reactions to drug (disorder) 79-10-0188UsqwkydinjqKhtxrwuogSamar[facility] (20 sources)Contrast media; Translations: [Contrast Dye]Drug allergythroaUniversity [facility] (20 sources)Amitriptyline; Translations: [AMITRIPTYLINE HCL]Drug Allergy 82-32-7759Xjeou: See [facility] (3 sources)Iodinated Contrast Media; Translations: [Iodinated Contrast Media] Allergy to rigqmufni80-42-5549LnqyzpnptpzQgiasthxwDay[facility] (1 source)Iodine (And Iodine Containting Drugs)Drug allergy (disorder)[facility] Medications Current Medications MedicationDrug Class(es)DatesSig (Normalized)Sig (Original)acetaminophen 325 mg / HYDROcodone bitartrate 5 mg oral tablet (1 source)Opioid AgonistStart: 52-59-9966nxpx 1 tablet by mouth every four to six hoursHydrocodone-Acetaminophen Active 1 TAB PO EVERY 4-6 HOURS 10 July 02llopurinol 100 mg oral tablet (20 sources)Xanthine Oxidase InhibitorStart: 36-12-9895cxgv 100 mg by mouth once dailyallopurinol 100 mg, Oral, Daily, Refills(s) 0 Start Date: 12/20/22 Status: Ordered Repeat number: 1Start: 45-67-4700qgzu 100 mg by mouth once daily Allopurinol Active 100 MG PO every day at noon June 19, 2022 12:00amComment on above:Take 1 tablet by mouth every afternoon.amoxicillin 875 mg / clavulanate 125 mg oral tablet (1 source)Penicillin-class AntibacterialStart: 12-04-2023 End: 63-74-9132vwxn 1 tablet by mouth every twelve hoursAugmentin 875 mg oral tablet = 1 tab(s), Oral, q12hr, X 5 day(s), # 10 tab(s), Refills(s) 0, Pharmacy: [facility]/pharmacy #[id number], 164, cm, 12/02/23 10:37:00 EDT, Height/Length Dosing, 90.9, kg, 12/02/23 10:37:00 EDT, Weight Dosing Start Date: 12/04/23 Stop Date: 12/09/23 Status: Orderedascorbic acid 500 mg oral tablet (20 sources)Vitamin CStart: 99-52-9955cutj 1 tablet by mouth once dailyascorbic acid, vitamin C, (VITAMIN C) 500 mg tablet Take 1 tablet by mouth once daily. 09/27/2021 ActiveStart: 07-99-6762ztmo 1 tablet by mouth once dailyVitamin C 500 mg oral tablet, chewable 500 mg = 1 tab(s), Chewed, Daily, # 30 tab(s), Refills(s) 0 Start Date: 02/26/20 Status: OrderedStart: 39-84-4168ckkh 1 tablet by mouth once dailyVitamin C 250 mg oral tablet, chewable 250 mg = 1 tab(s), Chewed, Daily, Prophylaxis Start Date: 02/18/20 Status: OrderedComment on above: Take 1 tablet by mouth once daily.Azopt 0.01 Susp-Opth (20 sources)Start: 91-52-3777kryl 1 drop(s) into the eye(s) four times daily Azopt 0.01 Susp-Opth 1 drop(s), OPTH, QID, right eye, Other (see comment) Start Date: 05/11/17 Status: Ordered Repeat number: 1Start: 17-12-9812rzzy 1 drop(s) into the eye(s) four times dailyAzopt 0.01 Susp-Opth 1 drop(s), OPTH, QID, right eye, Other (see comment) Start Date: 05/11/17 Status: Orderedbaclofen 20 mg oral tablet (20 sources)gamma-Aminobutyric Acid-ergic AgonistStart: 18-97-4905hzam 1 tablet by mouth three times dailybaclofen 20 mg Tab 20 mg = 1 tab(s), Oral, TID, # 270 tab(s), Refills(s) 0 Start Date: 07/02/24 Status: Ordered Quantity: 270.0 Unit: tab(s) Repeat number: 1Start: 12-07-2021 End: 17-70-8454nepu 1 tablet by mouth three times daily as needed for muscle spasmsbaclofen 10 mg Tab 10 mg = 1 tab(s), Oral, TID, PRN Spasm, X 90 day(s), # 270 tab(s), Refills(s) 0,Pharmacy: [facility]/pharmacy #[id number], 165, cm, 10/03/21 10:20:00 EDT, Height/Length Dosing, 90, kg, 10/03/21 10:20:00 EDT, Weight Dosing Start Date: 12/07/21 Stop Date: 03/07/22 Status: OrderedStart: 09-22-2021 End: 37-48-8600lbdy 1 tablet by mouth twice dailybaclofen 20 mg tablet TAKE 1 TABLET BY MOUTH TWICE A DAY 180 tablet 06/22/2024 ActiveStart: 06-01-2021 End: 50-58-5318ddzy 1 tablet by mouth three times daily as needed for muscle spasmsbaclofen 20 mg Tab 20 mg = 1 tab(s), Oral, TID, PRN Spasm, X 90 day(s), # 270 tab(s), Refills(s) 1,Pharmacy: [facility]/pharmacy #[id number], 165, cm, 06/01/21 9:17:00 EDT, Height/Length Dosing, 90.7, kg, 06/01/21 9:17:00 EDT, Weight Dosing Start Date: 06/01/21 Stop Date: 11/28/21 Status: OrderedComment on above:Take by mouth. Take 1 tablet by mouth twice daily.Take 1 tablet by mouth two times a day. bimatoprost 0.1 mg/ml ophthalmic solution (20 sources)Prostaglandin AnalogStart: 42-98-3194ccda 1 drop(s) into the eye(s) once daily in the eveningLumigan 0.01% ophthalmic solution 1 drop(s), OPTH, qPM, 5 mL, Refill(s) 0, right eye, Other (see comment) Start Date: 05/11/17 Status: OrderedStart: 27-43-6565vtpk 1 drop(s) into the eye(s) once daily in the evening Lumigan 0.01% ophthalmic solution 1 drop(s), OPTH, qPM, 5 mL, Refill(s) 0, right eye, Other (see comment) Start Date: 05/11/17 Status: Orderedbimatoprost (LUMIGAN OPHTHALMIC) Use in eyes daily at bedtime. 0 ActiveComment on above:Use in eyes daily at bedtime.brimonidine tartrate 2 mg/ml / timolol 5 mg/ml ophthalmic solution (20 sources)alpha-Adrenergic Agonist, beta-Adrenergic BlockerStart: 05-11-2017 take 1 drop(s) into the eye(s) three times dailyCombigan ophthalmic solution 1 drop(s), Eye-Right, TID, Other (see comment) Start Date: 05/11/17 Status: Ordered Start: 95-43-3969buqw 1 drop(s) into the eye(s) three times dailyCombigan ophthalmic solution 1 drop(s), Eye-Right, TID, Other (see comment) Start Date: 05/11/17 Status: Orderedbrinzolamide 10 mg/ml ophthalmic suspension (5 sources)Carbonic Anhydrase InhibitorStart: 07-97-9319sqcw 1 drop(s) into the eye(s) four times dailyAzopt 0.01 Susp-Opth 1 drop(s), OPTH, QID, right eye, Other (see comment) Start Date: 05/11/17 Status: Orderedcephalexin 500 mg oral capsule (4 sources)Cephalosporin AntibacterialStart: 03-24-2024 End: 99-27-2123nfdc 1 capsule by mouth twice dailycephalexin 500 mg Cap 500 mg = 1 cap(s), Oral, BID, X 7 day(s), # 14 cap(s), Refills(s) 0, Pharmacy: [facility]/pharmacy #[id number], 164, cm, 12/02/23 10:37:00 EDT, Height/Length Dosing, 90.9, kg, 12/02/23 10:37:00 EDT, Weight Dosing Start Date: 03/24/24 Stop Date: 03/31/24 Status: OrderedStart: 08-61-5985juhs 500 mg by mouth twice dailyCephalexin Active 500 MG PO Twice daily 11 22July 02, 2022 12:00amclopidogrel 75 mg oral tablet (20 sources)P2Y12 Platelet InhibitorStart: 27-66-0151nvyd 1 tablet by mouth once dailyclopidogrel 75 mg Tab 75 mg = 1 tab(s), Oral, Daily, Refills(s) 0 Start Date: 06/01/21 Status: Ordered Repeat number: 1Comment on above:clopidogrel 75 mg Tab Refills(s) 0 Start Date: 06/01/21 Status: Pxoqbgz46 hr desvenlafaxine succinate 100 mg extended release oral tablet (20 sources)Serotonin and Norepinephrine Reuptake InhibitorStart: 11-18-8410fath 1 tablet by mouth once dailyPristiq 100 mg Tab-ER 100 mg = 1 tab(s), Oral, Daily, Depression Start Date: 05/11/17 Status: Ordered Repeat number: 1Start: 34-50-5893gcvyqhqfueeyop 100 mg Tb24 Take 100 mg by mouth. 05/11/2017 Activetake 1 tablet by mouth once daily, then take 1 tablet by mouth every twenty-four hoursdesvenlafaxine ER (PRISTIQ) 50 mg 24 hr tablet Take 50 mg by mouth once daily. 0 ActiveComment on above:Take 50 mg by mouth once daily.Take 100 mg by mouth.diclofenac sodium 75 mg delayed release oral tablet (20 sources)Nonsteroidal Anti-inflammatory DrugStart: 49-15-4592ykzcyedtqb sodium 75 mg Oral EC Tab Refills(s) 0 Start Date: 06/01/21 Status: OrderedStart: 01-61-1809nsmd 1 tablet by mouth twice dailydiclofenac sodium 75 mg Oral EC Tab 75 mg = 1 tab(s), Oral, BID, Refills(s) 0 Start Date: 06/01/21 Status: Ordered Repeat number: 1Comment on above:Take by mouth.dicyclomine hydrochloride 20 mg oral tablet (20 sources)AnticholinergicStart: 40-46-4953xmua 1 tablet by mouth three times dailydicyclomine 20 mg Tab 20 mg = 1 tab(s), Oral, TID, Refills(s) 0 Start Date: 01/17/22 Status: Ordereddocusate sodium 100 mg oral capsule (20 sources)Start: 25-59-0095vwdeohtj sodium (COLACE) 100 mg capsule Take by mouth. 02/26/2020 ActiveComment on above:Take by mouth.doxycycline hyclate 100 mg oral capsule (8 sources)Tetracycline-class DrugStart: 46-12-7061bxwvpqchucw hyclate 100 mg Cap Refills(s) 0 Start Date: 07/02/24 Status: Ordered Repeat number: 1famotidine 40 mg oral tablet (20 sources)Histamine-2 Receptor AntagonistStart: 31-74-5112vigz 1 tablet by mouth once daily at bedtimePepcid 40 mg Tab 40 mg = 1 tab(s), Oral, Once a day (at bedtime), Refills(s) 0, Control of stomach acid Start Date: 08/13/19 Status: Ordered Repeat number: 1Comment on above:Take 40 mg by mouth.14 actuat fluticasone furoate 0.1 mg/actuat / vilanterol 0.025 mg/actuat dry powder inhaler (20 sources)Corticosteroid, beta2-Adrenergic AgonistStart: 92-07-9018cqcl 1 puff(s) by mouth once dailyfluticasone-vilanterol (BREO ELLIPTA) 100-25 mcg/dose inhaler INHALE 1 PUFF BY MOUTH ONCE DAILY 08/11/2021 ActiveStart: 04-19-2021 Fluticasone Furoate-Vilanterol (Breo Ellipta) 100-25 mcg/dose Blister With Device Active 1 INH INHALATION Every morning April 19, 2021 1:00amStart: 20-72-0684kjfh 1 puff(s) by inhalation once dailyBreo Ellipta 100 mcg-25 mcg inhalation powder 1 puff(s), Inhalation, Daily, Refill(s) 2, 30 dose unit, Shortness of breath or wheezing Start Date: 08/13/19 Status: Ordered Repeat number: 1Start: 99-87-8688nsxe 1 puff(s) by inhalation once dailyBreo Ellipta 100 mcg-25 mcg inhalation powder 1 puff(s), Inhalation, Daily, Refill(s) 2, 30 dose unit, Shortness of breath or wheezing Start Date: 08/13/19 Status: Ordered Comment on above:INHALE 1 PUFF BY MOUTH ONCE DAILYfurosemide 20 mg oral tablet (20 sources)Loop DiureticStart: 87-02-3257ekjl 40 mg by mouth once daily in the morningFurosemide Active 40 MG PO Every morning April 19, 2021 1:00amStart: 40-30-7419zjdl 1 tablet by mouth once dailyLasix 20 mg Tab 20 mg = 1 tab(s), Oral, Daily, Refills(s) 0, diuretic/water pill Start Date: 08/13/19 Status: Ordered Repeat number: 1Comment on above:Take by mouth.hyoscyamine sulfate 0.125 mg disintegrating oral tablet (20 sources)Start: 71-61-3167qgeo 0.125 mg by mouth once dailyHyoscyamine Sulfate Active 0.125 MG PO Daily April 19, 2021 1:00amStart: 33-36-2343yazs 1 tablet under the tongue four times daily as neededhyoscyamine Sublingual 0.25 mg = 2 tab(s), SubLingual, QID, PRN Urinary discomfort, Refills(s) 0 Start Date: 12/15/20 Status: OrderedComment on above:Dissolve 0.125 mg under the tongue as needed.hyoscyamine Sublingual (20 sources)Start: 30-52-3319tepl 1 tablet under the tongue four times daily as neededhyoscyamine Sublingual 0.25 mg = 2 tab(s), SubLingual, QID, PRN Urinary discomfort, Refills(s) 0 Start Date: 12/15/20 Status: Orderedlinaclotide 0.29 mg oral capsule (20 sources)Guanylate Cyclase-C AgonistStart: 42-93-5247hiuh 1 capsule by mouth once daily, then take 6 capsules by mouth in the morninglinaCLOtide (LINZESS) 290 mcg capsule Take 1 capsule by mouth DAILY (6 AM). 09/27/2021 ActiveStart: 93-54-6749rgov 1 capsule by mouth once dailyLinzess 290 mcg oral capsule 290 microgram = 1 cap(s), Oral, Daily, Refills(s) 0, Constipation Start Date: 08/13/19 Status: Ordered Repeat number: 1take 1 capsule by mouth once daily linaclotide (LINZESS) 145 mcg cap Take by mouth once daily. 0 ActiveComment on above:Take by mouth once daily.Take 1 capsule by mouth DAILY (6 AM).losartan potassium 25 mg oral tablet (20 sources)Angiotensin 2 Receptor BlockerStart: 83-31-2044dagt 25 mg by mouth twice dailylosartan 25 mg, Oral, BID, Refills(s) 0, High blood pressure Start Date: 09/11/18 Status: Ordered Repeat number: 1Start: 83-99-9022jttl 50 mg by mouth once dailylosartan 50 mg, Oral, Daily, Refills(s) 0, High blood pressure Start Date: 09/11/18 Status: OrderedStart: 90-87-2311yahytykm (COZAAR) 50 mg tablet Take 25 mg by mouth. 0 09/11/2018 Activelosartan (COZAAR) 25 mg tablet Take 25 mg by mouth once daily. takes twice daily. ActiveComment on above:Take 25 mg by mouth once daily.Take 50 mg by mouth.Take 25 mg by mouth. Take 25 mg by mouth once daily. takes twice daily.meclizine hydrochloride 25 mg oral tablet (20 sources)AntiemeticStart: 41-59-6703gwsj 1 tablet by mouth every four hours as needed for dizzinessmeclizine 25 mg Tab 25 mg = 1 tab(s), Oral, q4hr, PRN Dizziness, Refills(s) 0 Start Date: 01/17/22 Status: Ordered Repeat number: 1 Comment on above:Take 1 tablet by mouth every 4 hours as needed (for dizziness.).methocarbamol 500 mg oral tablet (20 sources)Muscle RelaxantStart: 09-10-2022 End: 13-19-0579serahmjcegrwa (ROBAXIN) 500 mg tablet TAKE 1 TABLET BY MOUTH IN THE MORNING AND 2 TABLETS AT NIGHT 90 tablet 5 09/17/2023 ActiveStart: 09-22-2021 End: 80-65-0631Vmxocxqceoyez Active 500 MG PO Twice daily June 19, 2022 12:00am 1 tab in am and 2 tabs at nightComment on above:Take 1 tablet by mouth at bedtime x 4 days, then increase to 2 tablets by mouth at bedtime x 4 days, then increase to 1 tablet in the morning and 2 tablets by mouth at bedtime OR 1 tablet by mouth three times a day as tolerated.Take one in the morning and two at night.TAKE 1 TABLET BY MOUTH IN THE MORNING AND 2 TABLETS AT NIGHT metoclopramide 10 mg oral tablet (20 sources)Dopamine-2 Receptor AntagonistStart: 08-13-2019 End: 97-22-3632gmzftsolcjicnz 10 mg Tab 10 mg = 1 tab(s), Oral, QIDACHS, Refills(s) 0, Other (see comment) Start Date: 08/13/19 Status: OrderedComment on above:Take 1 tablet by mouth three times daily before meals.Misc Medication (8 sources)Start: 83-18-3613Edav Medication 75 mg, Oral Start Date: 11/10/20 Status: Orderednaproxen 500 mg oral tablet (13 sources)Nonsteroidal Anti-inflammatory DrugStart: 46-16-4277idtu 1 tablet by mouth twice daily at mealtimenaproxen 500 mg Tab 500 mg = 1 tab(s), Oral, BID, with food, # 60 tab(s), Refills(s) 0 Start Date: 02/26/20 Status: OrderedComment on above:Take 500 mg by mouth as needed.nitrofurantoin, macrocrystals 25 mg / nitrofurantoin, monohydrate 75 mg oral capsule (1 source)Nitrofuran AntibacterialStart: 05-28-2024 End: 11-80-4022uewn 1 capsule by mouth twice dailyMacrobid 100 mg Cap 100 mg = 1 cap(s), Oral, BID, X 5 day(s), # 10 cap(s), Refills(s) 0, Pharmacy: [facility]/pharmacy #[id number], 164, cm, 03/24/24 14:01:00 EST, Height/Length Dosing, 91, kg, 03/24/24 14:01:00 EST, Weight Dosing Start Date: 05/28/24 Stop Date: 06/02/24 Status: Ordered Quantity: 10.0 Unit: cap(s) Repeat number: 1ondansetron 4 mg oral tablet (20 sources)Serotonin-3 Receptor AntagonistStart: 38-61-3355Ouqxoi 4 mg, Oral, PRN as needed for nausea/vomiting, Refills(s) 0, Nausea Start Date: 02/12/18 Status: Ordered Repeat number: 1Comment on above:Take 4 mg by mouth as needed. OXcarbazepine 300 mg oral tablet (20 sources)Anti-epileptic AgentStart: 49-05-8440wqwh 600 mg by mouth once daily Oxcarbazepine Active 600 MG PO every day at noon April 19, 2021 1:00amStart: 54-96-5759hesy 2 tablets by mouth at bedtimeoxcarbazepine 300 mg Tab 600 mg = 2 tab(s), Oral, Bedtime Start Date: 12/15/20 Status: Ordered Repeat number: 1 Start: 31-38-6876ivcm 1-0.5 tablets by mouth once dailyOXcarbazepine (TRILEPTAL) 300 mg tablet TAKE 1 AND 1/2 - 2 TABLETS BY MOUTH EVERYDAY 07/14/2021 Active Comment on above:TAKE 1 AND 1/2 - 2 TABLETS BY MOUTH RUNQYHAK66 hr oxybutynin chloride 5 mg extended release oral tablet (20 sources)Cholinergic Muscarinic AntagonistStart: 79-38-8659gpqc 1 tablet by mouth every houroxybutynin XL (DITROPAN XL) 5 mg 24 hr tablet Take 1 tablet by mouth every afternoon. 01/02/2023 ActiveStart: 44-61-6800syrf 5 mg by mouth once dailyoxybutynin 5 mg, Oral, Daily, Refills(s) 0 Start Date: 12/20/22 Status: Ordered Repeat number: 1Start: 44-66-5566qwoy 5 mg by mouth once daily at bedtimeOxybutynin Chloride Active 5 MG PO Daily at bedtime June 19, 2022 12:00am Comment on above:Take 1 tablet by mouth every afternoon.pantoprazole 40 mg delayed release oral tablet (20 sources)Proton Pump InhibitorStart: 89-85-7092pcxx 40 mg by mouth twice dailyPantoprazole Active 40 MG PO Twice daily April 19, 2021 1:00amStart: 60-18-3589jjxx 40 mg by mouth twice dailyProtonix 40 mg, Oral, BID, Refills(s) 0, Control of stomach acid Start Date: 01/24/17 Status: OrderedStart: 01-24-2017 take 80 mg by mouth once dailyProtonix 80 mg, Oral, Daily, Refills(s) 0, Control of stomach acid Start Date: 01/24/17 Status: OrderedStart: 19-56-1619yiuc 1 tablet by mouth once dailypantoprazole DR (PROTONIX) 40 mg tablet Take 1 tablet by mouth once daily. 04/17/2016 ActiveComment on above:Take 1 tablet by mouth once daily.potassium chloride 10 meq extended release oral tablet (20 sources)Start: 12-89-3816pszv 2 tablets by mouth twice dailypotassium chloride (K-TAB) 10 mEq tablet Take 2 tablets by mouth twice daily. 09/27/2021 ActiveStart: 81-65-8087Zxna-Con 20 mEq, Oral, BID, Refills(s) 0, Prophylaxis Start Date: 08/13/19 Status: OrderedComment on above:Take 2 tablets by mouth twice daily.potassium citrate 10 meq extended release oral tablet (20 sources)Start: 81-50-2831svrlmmwex CITRATE 10 mEq ER Tab 20 mEq, 2 tab(s), Oral, BID, 120 tab(s), Refill(s) 11, [facility]/pharmacy#[id number], 164, cm, 12/02/23 10:37:00 EDT, Height/Length Dosing, 90.9, kg, 12/02/23 10:37:00 EDT, Weight Dosing Start Date: 12/04/23 Status: Ordered Quantity: 120.0 Unit: tab(s) Repeat number: 12Start: 88-01-3734zduftfhqk CITRATE 10 mEq ER Tab 20 mEq, 2 tab(s), Oral, BID, 120 tab(s), Refill(s) 11, [facility]acy[facility][id number], 164, cm, 06/11/22 9:22:00 EDT, Height/Length Dosing, 91, kg, 06/11/22 9:22:00 EDT, Weight Dosing Start Date: 08/19/22 Status: OrderedStart: 48-98-7801jvpyrqygi CITRATE 10 mEq ER Tab 20 mEq, 2 tab(s), Oral, BID, 120 tab(s), Refill(s) 3, [id number], 165, cm, 01/24/22 12:22:00 EST, Height/Length Dosing, 90, kg, 10/03/21 10:20:00 EDT, Weight Dosing Start Date: 04/18/22 Status: OrderedStart: 48-18-0905jefobxwtr CITRATE 10 mEq ER Tab 20 mEq, 2 tab(s), Oral, BID, 120 tab(s), Refill(s) 3, [facility]/pharmacy #[id number], 165, cm, 10/03/21 10:20:00 EDT, Height/Length Dosing, 90, kg, 10/03/21 10:20:00 EDT, Weight Dosing Start Date: 01/04/22 Status: Ordered Start: 94-91-1649ivqi 20 mEq by mouth twice dailyPotassium Citrate Active 20 MEQ PO Twice daily April 19, 2021 1:00amStart: 32-10-1085dpjlihhqe CITRATE 10 mEq ER Tab 10 mEq, 1 tab(s), Oral, BID, 120 tab(s), Refill(s) 11, [facility]/pharmacy#[id number], 165, cm, 12/15/20 11:39:00 EDT, Height/Length Dosing, 99.8, kg, 12/15/20 11:39:00 EDT, Weight Dosing Start Date: 01/10/21 Status: OrderedStart: 47-58-4256qadfdnjsw CITRATE 10 mEq ER Tab 10 mEq, 1 tab(s), Oral, BID, 120 tab(s), Refill(s) 11, [facility]/pharmacy#[id number], 165, cm, 12/15/20 11:39:00 EDT, Height/Length Dosing, 99.8, kg, 12/15/20 11:39:00 EDT, Weight Dosing Start Date: 01/10/21 Status: Orderedmonobasic potassium phosphate 0.0408 meq/ml oral solution (20 sources)Start: 87-38-6963ltfw 1 tablet by mouth twice dailyK-Phos Original 500 mg oral tablet 1 tab, Oral, BID, # 60 tab(s), Refills(s) 11, Pharmacy: [facility]/pharmacy #[id number], 164, cm, 12/02/23 10:37:00 EDT, Height/Length Dosing, 90.9, kg, 12/02/23 10:37:00 EDT, Weight Dosing Start Date: 12/04/23 Status: Ordered Quantity: 60.0 Unit: tab(s) Repeat number: 12Start: 81-82-2119tqru 1 tablet by mouth every twelve hoursK-PHOS ORIGINAL 500 mg tablet Take 1 tablet by mouth every 12 hours. 10/30/2022 ActiveStart: 55-05-0487uppn 1 tablet by mouth twice dailyK-Phos Original 500 mg oral tablet 1 tab, Oral, BID, # 60 tab(s), Refills(s) 11, Pharmacy: [facility]/pharmacy #[id number], 164, cm, 06/11/22 9:22:00 EDT, Height/Length Dosing, 91, kg, 06/11/22 9:22:00 EDT, Weight Dosing Start Date: 09/18/22 Status: OrderedComment on above:Take 1 tablet by mouth every 12 hours. prednisoLONE (20 sources)CorticosteroidStart: 28-31-9862fvpg 1 drop(s) into the eye(s) four times dailyPrednisol 1% ophthalmic solution 1 drop(s), Eye-Right, QID, Refill(s) 0, Other (see comment) Start Date: 06/13/17 Status: Ordered Repeat number: 1 Start: 35-02-9722tief 1 drop(s) into the eye(s) four times dailyPrednisol 1% ophthalmic solution 1 drop(s), Eye-Right, QID, Refill(s) 0, Other (see comment) Start Date: 06/13/17 Status: Orderedpregabalin 200 mg oral capsule (20 sources)Start: 12-18-2023 End: 87-29-3990pvpi 1 capsule by mouth three times dailypregabalin 200 mg Cap 200 mg = 1 cap(s), Oral, TID, X 90 day(s), # 270 cap(s), Refills(s) 1, Pharmacy: [facility]/pharmacy #[id number], 164, cm, 07/02/24 12:31:00 EDT, Height/Length Dosing, 90.9, kg, 07/02/24 12:52:00 EDT, Weight Dosing Start Date: 09/17/24 Stop Date: 03/16/25 Status: Ordered Quantity: 270.0 Unit: cap(s) Repeat number: 2 Indications: Acute transverse myelitis in demyelinating disease of centralnervous system;Start: 41-22-8476ejkd 1 capsule by mouth three times dailypregabalin 200 mg Cap 200 mg = 1 cap(s), Oral, TID, # 270 cap(s), Refills(s) 1, Pharmacy: [facility]/pharmacy #[id number], 164, cm, 05/09/23 12:31:00 EDT, Height/Length Dosing, 90.9, kg, 05/09/23 12:31:00 EDT, Weight Dosing Start Date: 06/21/23 Status: OrderedStart: 05-30-2022 take 1 capsule by mouth three times dailypregabalin 200 mg Cap 200 mg = 1 cap(s), Oral, TID, # 270 cap(s), Refills(s) 1, Pharmacy: [facility]/pharmacy #[id number], 164, cm, 06/11/22 9:22:00 EDT, Height/Length Dosing, 91, kg, 06/11/22 9:22:00 EDT, WeightDosing Start Date: 12/12/22 Status: OrderedStart: 03-13-2022 End: 80-15-9824wrab 1 capsule by mouth three times dailypregabalin 150 mg Cap 150 mg = 1 cap(s), Oral, TID, X 90 day(s), # 270 cap(s), Refills(s) 0, Pharmacy: [facility]/pharmacy #[id number], 165, cm, 01/24/22 12:22:00 EST, Height/Length Dosing, 90, kg, 10/03/21 10:20:00 EDT, Weight Dosing Start Date: 03/13/22 Stop Date: 06/11/22 Status: OrderedStart: 07-17-2017 End: 80-60-6621nwhn 1 capsule by mouth four times dailypregabalin (LYRICA) 150 mg capsule Take 1 capsule by mouth four times daily for 180 days. 09/22/2021 Active End: 87-71-8388pfrx 1 capsule by mouth three times dailyPregabalin (LYRICA) 200 mg capsule Take 200 mg by mouth three times daily. 0 09/22/2021 Discontinued (Discontinued by another Health Care Provider)Comment on above:Take 200 mg by mouth three times daily.Take 150 mg by mouth.Take 1 capsule by mouth four times daily for 180 days.QUEtiapine 100 mg oral tablet (20 sources)Atypical AntipsychoticStart: 80-71-7106xggg 100 mg by mouth once daily at bedtimeSeroquel 100 mg, Oral, Once a day (at bedtime), Refills(s) 0, Depression Start Date: 06/13/17 Status: Ordered Repeat number: 1Comment on above: TAKE 1 TABLET BY MOUTH EVERYDAY AT BEDTIMErimegepant 75 mg disintegrating oral tablet (20 sources)Start: 12-15-2020 End: 23-38-6350wdcn 1 tablet by mouth once daily as neededrimegepant (NURTEC ODT) 75 mg disintegrating tablet Take 1 tablet by mouth once daily as needed. 32 tablet 10/13/2021 ActiveComment on above:Take by mouth.Take 1 tablet by mouth once daily as needed.tiZANidine 4 mg oral tablet (8 sources)Central alpha-2 Adrenergic AgonistStart: 81-62-2207adwc 1 tablet by mouth at bedtimetiZANidine 4 mg Tab 4 mg = 1 tab(s), Oral, Bedtime, Refills(s) 0, Sleep Start Date: 08/13/19 Status:OrderedtraMADol hydrochloride 50 mg oral tablet (20 sources)Opioid AgonistStart: 37-89-3920oiwt 1 tablet by mouth twice daily as needed for painUltram 50 mg Tab 50 mg = 1 tab(s), Oral, BID, PRN as needed for pain, # 30 tab(s), Refills(s) 0, Pharmacy: [facility]/pharmacy #[id number], 165, cm, 05/30/22 14:49:00 EDT, Height/Length Dosing, 90, kg, 10/03/21 10:20:00 EDT, Weight Dosing Start Date: 05/30/22 Status: Ordered Quantity: 30.0 Unit: tab(s) Repeat number: 1 Indications: Complex regional pain syndrome I of left lower limb;Comment on above:Take 1 tablet by mouth as needed.traZODone hydrochloride 50 mg oral tablet (8 sources)Serotonin Reuptake InhibitorStart: 18-62-5125ysay 1 tablet by mouth once dailytraZODONE 50 mg Tab 50 mg = 1 tab(s), Oral, Daily, Refills(s) 0, Pain Start Date: 08/13/19 Status: Orderedubrogepant 50 mg oral tablet (6 sources)Start: 85-82-7379xxhvvrqhfo (UBRELVY) 50 mg tablet Take 1 tablet by mouth as needed. 10 tablet 4 09/17/2023 ActiveVitamin C 250 mg oral tablet, chewable (6 sources)Start: 32-20-1045oyqe 1 tablet by mouth once dailyVitamin C 250 mg oral tablet, chewable 250 mg = 1 tab(s), Chewed, Daily, Prophylaxis Start Date: 02/18/20 Status: OrderedVitamin C 500 mg oral tablet, chewable (6 sources)Start: 53-01-1468neak 1 tablet by mouth once dailyVitamin C 500 mg oral tablet, chewable 500 mg = 1 tab(s), Chewed, Daily, # 30 tab(s), Refills(s) 0 Start Date: 02/26/20 Status: Ordered Completed/Discontinued Medications MedicationDrug Class(es)DatesSig (Normalized)Sig (Original)amitriptyline hydrochloride 50 mg oral tablet (5 sources)Tricyclic Antidepressant End: 09-61-0870qyhf 1 tablet by mouth once daily at bedtimeamitriptyline (ELAVIL) 50 mg tablet Take 50 mg by mouth daily at bedtime. 0 09/22/2021 Discontinued(Discontinued by another Health Care Provider)Comment on above:Take 50 mg by mouth daily at bedtime.benoxinate hydrochloride 4 mg/ml / fluorescein sodium 2.5 mg/ml ophthalmic solution (1 source)Diagnostic DyeStart: 12-05-2021 End: 81-35-4993okzkzblauyx-benoxinate 0.25-0.4 % 1 Drop (FLURESS) onabotulinumtoxina 100 unt injection (3 sources)Acetylcholine Release InhibitorStart: 01-30-2023 End: 22-01-6155hdnrjlkqqdee toxin type A 400 Units injection (BOTOX)Start: 08-03-2022 End: 14-63-5225hrigxltqufhm toxin type A 300 Units injection (BOTOX)Start: 03-28-2022 End: 47-50-9351imsufpuuxxpt toxin type A 300 Units injection (BOTOX) dexamethasone 6 mg oral tablet (2 sources)CorticosteroidStart: 07-21-2021 End: 91-42-9117kmxk 1 tablet by mouth once dailydexAMETHasone (DECADRON) 6 mg tablet Take 6 mg by mouth once daily. 0 07/21/2021 09/21/2021 Discontinued (Course of therapy completed)Comment on above:Take 6 mg by mouth once daily. difluprednate 0.5 mg/ml ophthalmic suspension (5 sources)take 0.05 drop(s) into the eye(s) twice dailyDifluprednate (DUREZOL) 0.05 % drop Use in both eyes twice daily. 0 ActiveComment on above:Use in both eyes twice daily.eletriptan 40 mg oral tablet (5 sources)Serotonin-1b and Serotonin-1d Receptor Agonisttake 1 tablet by mouth every two hours as neededeletriptan (RELPAX) 40 mg tablet Take 40 mg by mouth as needed. may repeat in 2 hours if necessary 0 ActiveComment on above:Take 40 mg by mouth as needed. may repeat in 2 hours if rckfbeemb04 hr fesoterodine fumarate 4 mg extended release oral tablet (20 sources)Start: 04-19-2021 End: 85-79-1600iaoi 1 tablet by mouth once dailyfesoterodine (TOVIAZ) 4 mg Tb24 extended release tablet Take 1 tablet by mouth once daily. 0 09/27/2021 09/17/2023 DiscontinuedComment on above:Take 1 tablet by mouth once daily. Lactulose (5 sources)Osmotic Laxativetake 200 g rectal route three times dailylactulose (CONSTULOSE) 200 g by RECTAL route three times daily. 0 ActiveComment on above: 200 g by RECTAL route three times daily.loteprednol etabonate 0.005 mg/mg ophthalmic ointment (5 sources)loteprednol etabonate (LOTEMAX) 0.5 % eye ointment daily at bedtime. 0 ActiveComment on above:daily at bedtime.phenylephrine hydrochloride 25 mg/ml ophthalmic solution (1 source)alpha-1 Adrenergic AgonistStart: 12-05-2021 End: 29-63-2543ODBBOLihbkrku 2.5 % 1 Drop (AK-DILATE, MATTHEW-SYNEPHRINE) Polyethylene Glycols (5 sources)polyethylene glycol 3350 (PURELAX ORAL) Take by mouth once daily. 0 ActiveComment on above:Take by mouth once daily.proparacaine hydrochloride 5 mg/ml ophthalmic solution (1 source)Local AnestheticStart: 12-05-2021 End: 14-97-9907idgqflzwjnfr 0.5 % 1 Drop (ALCAINE)raNITIdine 300 mg oral capsule (5 sources)Histamine-2 Receptor Antagonisttake 1 capsule by mouth twice daily Ranitidine HCl 300 mg capsule Take 300 mg by mouth twice daily. 0 ActiveComment on above:Take 300 mg by mouth twice daily.SUMAtriptan 100 mg oral tablet (20 sources)Serotonin-1b and Serotonin-1d Receptor AgonistStart: 11-21-2017 End: 90-58-3256yjbq 100 mg by mouth onceSumatriptan Succinate Discontinued 100 MG PO Once April 19, 2021 1:00am June 19, 2022 12:16pmComment on above:Take 100 mg by mouth as needed.tropicamide 10 mg/ml ophthalmic solution (2 sources)AnticholinergicStart: 12-05-2021 End: 68-34-1579apalllndhen 1 % 1 Drop (MYDRIACYL)Start: 10-20-2021 End: 69-70-6426puqredgysbg 1 % 1 Drop (MYDRIACYL) Problems Active Problems Problem ClassificationProblemDateDocumented DateEpisodic/ChronicAcute cerebrovascular disease (20 sources)Cerebrovascular rpszypge09-75-1747CclchzhAunqnzxixlkttx/social admission (3 sources)Other reduced mobility; Translations: [Other specified conditions influencing health status]EpisodicAnxiety disorders (20 sources)Anxiety; Translations: [Anxiety disorder, unspecified]Onset: 084908-36-7680MyjiymwAirnauldp and vision defects (20 sources)Legal blindness; Translations: [Visual impairment]Onset: 05-29-2022 86-95-2648RwzbkxuMcrxigep (20 sources)Nuclear hthxemqsa31-25-3994OpspjlsIixeugfjyfcw of device; implant or graft (5 sources)Unspecified complication of genitourinary prosthetic device, implant and graft, initial encounter; Translations: [Other mechanical complication of indwelling urethral catheter, initial encounter]Onset: 99-61-2345Nufxkjjj Diseases of mouth; excluding dental (1 source)Recurrent ulcer of mouth; Translations: [Other lesions of oral mucosa] EpisodicEsophageal disorders (20 sources)Gastroesophageal reflux disease; Translations: [Gastro-esophageal reflux disease without esophagitis]Onset: 971561-48-2999PdpltugElfylvosc hypertension (20 sources)Hypertensive disorder; Translations: [Essential (primary) hypertension]Onset: 193187-18-4699VweslimRvuis of unknown origin (3 sources)Fever, unspecified; Translations: [FEVER UNSPECIFIED]Onset: 11-67-6887VnlxeugsPyjwp and electrolyte disorders (20 sources)Wwxgzoptlit27-08-1200WdlugyjyXjmejqsojaylo symptoms and ill-defined conditions (20 sources)Urinary catheter in situ; Translations: [Suprapubic urinary catheter in situ]64-25-3925WhplsumFqdcwtkhdtlgi symptoms and ill-defined conditions (20 sources)Retention of urine; Translations: [Retention of urine, unspecified] Onset: 453044-41-7091JwynotqoEgnxrdca (20 sources)Uveitic glaucoma of right eye; Translations: [Glaucoma secondary to eye inflammation, right eye, mild stage]Onset: 919741-90-5578Emliciu Headache; including migraine (1 source)Refractory migraine without aura; Translations: [Migraine without aura, intractable, without statusmigrainosus]57-60-6570UixkhnzFmjbefbj disorders (2 sources)Sarcoidosis; Translations: [Sarcoidosis, unspecified]Chronic Inflammation; infection of eye (except that caused by tuberculosis or sexually transmitteddisease) (1 source)Disorder of optic nerve; Translations: [Unspecified optic neuritis] ChronicInflammation; infection of eye (except that caused by tuberculosis or sexually transmitteddisease) (20 sources)Iritis; Translations: [Unspecified iridocyclitis]Onset: 03-22-2016 10-82-1131FxkzzwyuCtrgcuwkna obstruction without hernia (20 sources)Pseudo-obstruction of owbgj40-86-1763MkowuuzjGuktvhrndwjir (2 sources)Localized enlarged lymph nodes; Translations: [Localized enlarged lymph nodes]EpisodicMood disorders (20 sources)Depressive -61-4986JxdgjvtGblf disorders (1 source)Mood disorders; Translations: [DEPRESSION UNSPECIFIED]Onset: 27-06-2306Tqgcs aftercare (1 source)Other supervisor intermediates (current) drug therapy; Translations: [OTH PENITENTIARY CURRENT DRUG THERAPY]Onset: 79-16-6556UxqyfvihOsnmo aftercare (1 source)group home (current) use of aspirin; Translations: [PENITENTIARY CURRENT USE OF ASPIRIN]Onset: 81-27-9860HgqspydjFiqqb connective tissue disease (20 sources)H/O: musculoskeletal qletrml18-43-6846QnuriroqVqrxf connective tissue disease (1 source)Diastasis of muscle; Translations: [Separation of muscle (nontraumatic), other site]Onset: 09-85-9293KretwafbYhcop connective tissue disease (20 sources)Diastasis vjeqp07-76-9285TxkneajnErxow diseases of bladder and urethra (20 sources)Paralysis of vqfkjnu60-84-5247MhqdhhpSjpeh diseases of bladder and urethra (12 sources)Neurogenic dysfunction of the urinary bladder; Translations: [Neuromuscular dysfunction of bladder,unspecified]Onset: 18-20-2210TcgwpyvQqdbz diseases of bladder and urethra (1 source)Neuromuscular dysfunction of bladder, unspecified; Translations: [Neuromuscular dysfunction of bladder, unspecified]Onset: 12-66-7918AxfzeyuZsjxu disorders of stomach and duodenum (20 sources)Gastroparesis teeeikqk05-49-7723FeskwfyrGqmlf endocrine disorders (20 sources)Reactive hypoglycemia; Translations: [Other hypoglycemia]12-20-2015 ChronicOther endocrine disorders (20 sources)HypoglycemiaOnset: 105667-39-9815DabpvlmEviwt gastrointestinal disorders (1 source)Constipation, unspecified; Translations: [Constipation, unspecified] Onset: 38-47-2329FyvepuyqSeuer gastrointestinal disorders (2 sources)Dysphagia; Translations: [Dysphagia, unspecified]EpisodicOther lower respiratory disease (20 sources)Interstitial lung disease; Translations: [Interstitial pulmonary disease, unspecified]ChronicOther lower respiratory disease (2 sources)Dyspnea; Translations: [Shortness of breath]EpisodicOther nervous system disorders (20 sources)Complex regional pain syndrome of lower qsfb69-90-5336NpeogkqVdvgyub on above:L LEOther nervous system disorders (20 sources)Complex regional pain uxqmocyy92-60-9123WozwzwdLrzkd nervous system disorders (1 source)Complex regional pain syndrome I of lower limb, bilateral; Translations: [COMPLX RGN PAIN SYND I LOW LIMB DAVID]Onset: 77-84-2257BysrykpKuetw nervous system disorders (20 sources)H/O: aayuuljz52-56-9154EqswzhbfHnkms nervous system disorders (20 sources)Transverse myelopathy syndrome; Translations: [Acute transverse myelitis in demyelinating disease of central nervous system]EpisodicOther non- traumatic joint disorders (1 source)Chronic pain of right upper limb; Translations: [Pain in right shoulder]EpisodicOther nutritional; endocrine; and metabolic disorders (20 sources)Obese class I; Translations: [Obesity, unspecified]Onset: 11-28-2021 19-51-7556YmcfubbBxlrqhn cyst (20 sources)Cyst of -78-8594YopwzmccEpaiparzp (20 sources)Right hemiparesis; Translations: [Hemiplegia, unspecified affecting right dominant side]Onset: 10-79-1665VhfpipuOaqwtvmj codes; unclassified (20 sources)Norcfqbdhxs39-96-7238YzgtuflGdynlrkr codes; unclassified (20 sources)Body fluid -86-8930UaqlyclaWgdifezf codes; unclassified (20 sources)Poor short-term corgnw53-09-1868PnamexmnLtfazepa codes; unclassified (1 source)Acquired absence of both cervix and uterus; Translations: [ACQUIRED ABSENCE BOTH CERVIX AND UTERUS]Onset: 40-41-0699UpvafdukJnlm and subcutaneous tissue infections (1 source)Cellulitis of abdominal wall; Translations: [CELLULITIS OF ABDOMINAL WALL]Onset: 58-55-4383WngcsysoXarqtjbjdgi; intervertebral disc disorders; other back problems (20 sources)Degeneration of lumbosacral intervertebral disc; Translations: [Other intervertebral disc degeneration, lumbosacral region]Onset: 12-20-2015 39-86-6047PtqwlctJznephx and strains (20 sources)Rupture of anterior cruciate msqikcon84-86-9852QdjpxgehMkjacqiurpny (20 sources)Postprocedural state obbrlxb68-34-9392Kqfpkylmtmnf (20 sources)Sensorineural hearing loss of left ear with normal hearing on right dxtm12-24-9171Pkkxaqhsmypr (1 source)Encounter for preprocedural laboratory examination; Translations: [Encounter for preprocedural laboratory examination]Onset: 15-01-1468Gnuvkhq tract infections (1 source)Urinary tract infectious disease; Translations: [Urinary tract infection, site not specified]Onset: 04-64-1512Tyspkuws Past or Other Problems Problem ClassificationProblemDateDocumented DateEpisodic/ChronicAbdominal hernia (1 source)Umbilical hernia without obstruction or gangrene; Translations: [UMBILICAL HERNIA W/O OBST/GANGRENE]Onset: 69-85-5496AiwbpnbwWoldgiwor pain (5 sources)Generalized abdominal pain; Translations: [Epigastric pain]Onset: 95-44-4513BdefubluTvrsf nervous system disorders (20 sources)Abnormal gait; Translations: [Unspecified abnormalities of gait and mobility]Onset: 58-53-5166MgkbbvquAaoff nervous system disorders (12 sources)Acute transverse myelitis; Translations: [Acute transverse myelitis in demyelinating disease of central nervous system]Onset: 52-67-2133Wfuysmwo Other screening for suspected conditions (not mental disorders or infectious disease) (9 sources)Culture positive for methicillin resistant Staphylococcus aureus Onset: 753087-76-9093PrkowbbtXcoaaut on above:MRSA urineMRSA in urine 06/17/2024Spondylosis; intervertebral disc disorders; other back problems (20 sources)Pain in right sacroiliac joint; Translations: [Sacrococcygeal disorders, not elsewhere classified]Onset: 021014-51-2466Pwmvidzz Unclassified (20 sources)Finding of sensation of aayrdun34-01-5473 Results Test NameValueInterpretationReference RangeFacilityNonvisit Note - OTon 44-42-0914Xiydolxm Note - OTNonvisit Note - OT Pt. cx, d/t personal reason.[facility]Non[facility] - PT on 74-30-3089Ajsvmoux Note - PTNonvisit Note - PT Pt canceled this date due to personal reasons.[facility] Operative Reporton [id number] ReportOperative Report History, physical examination, and personal review of pertinent imaging results indicate a diagnosis of: -Right shoulder contracture -Right shoulder pain -Multiple sclerosis Plan: -Right upper extremity/trunk was injected today and 5 total muscle groups with Botox, 400 units, procedure described below. 3 right upper extremity muscles and 2 trunk muscles on the right. Prior Botox injection provided greater than 3 months of greater than 50% relief. Discussed that we can follow-up in 3 months or sooner if needed -we can also perform right shoulder intra-articular corticosteroid injection as long as they provide effective relief for her, we will also continue her on Lyrica 200 mg 3 times daily as this is effective for her as well An in office procedure was performed today. Risks and benefits were discussed at length, verbal consent was obtained from the patient. The areawas prepped under strict aseptic technique using chloraprep solution, sterile gloves were utilized. Location: Right upper extremity, multiple muscle groups. Ultrasound was utilized to identify these muscles Anatomic Landmarks: Pectoralis muscle as well as the FCR, FDP, and right deltoid as well as right latissimus dorsi. 25 gauge 1.5 inch needle was utilized for visualization under ultrasound. Medications: 400 units of Botox was diluted into 8 cc of normal saline, 3 cc of 2% lidocaine was injected at the needle insertion sites. Procedure: Patient was identified, procedural sites were identified and prior notes were reviewed prior to performing this. We injected 400 units of Botox total after cleaning the skin and identifying muscle groups using sterile equipment and an ultrasound device. Before injection of any Botox, aspiration was performed and did not reveal any vascular uptake at each site. The sites were identified as below: 1. 150u RUE pectoralis, divided between 3 sites 2. 50u RUE flexor carpi radialis, 1 site 3. 50u RUE flexor digitorum profundus, 1 site 4. 100u RUE deltoid, 2 sites 5. 50u RUE latissimus dorsi, 1 site the patient tolerated the procedure well without complication and will follow up regarding changes after procedure. Patient observed post-procedure without further issue or new complaints. Improvement in pain was noted.[facility] CampusComment on above: Result Comment: Electronically Signed By: Camilo Deras DO\.br\Date and Time Signed: 10/30/24 10:43 EDTAmbulatory Visit Summaryon 20-95-9806Vffinkfnmo Visit SummaryAmbulatory Visit Summary JESSICA GUTIERREZ Belkis :1975 Visit Date:10/21/2024 Ambulatory Visit Instructions Your Diagnosis Urinary retention Your Care Team Attending Physician - Yovana CAMPBELL, Lakia Estrella Primary Care Physician - Hunter Quinteros MD This Is Your Medications List allopurinol baclofen (baclofen 20 mg Tab) brinzolamide ophthalmic (Azopt 0.01 Susp-Opth) clopidogrel (clopidogrel 75 mg Tab) desvenlafaxine (Pristiq 100 mg Tab-ER) diclofenac (diclofenac sodium 75 mg Oral EC Tab) doxycycline (doxycycline hyclate 100 mg Cap) famotidine (Pepcid 40 mg Tab) fluticasone-vilanterol (Breo Ellipta 100 mcg-25 mcg inhalation powder) furosemide (Lasix 20 mg Tab) linaclotide (Linzess 290 mcg oral capsule) losartan meclizine (meclizine 25 mg Tab) ondansetron (Zofran) oxcarbazepine (oxcarbazepine 300 mg Tab) oxybutynin potassium acid phosphate (K-Phos Original 500 mg oral tablet) potassium citrate (potassium CITRATE 10 mEq ER Tab) prednisoLONE ophthalmic (Prednisol 1% ophthalmic solution) pregabalin (pregabalin 200 mg Cap) quetiapine (Seroquel) tramadol (Ultram 50 mg Tab) Procedures Performed Injection (03/24/2024), Denervation (12/02/2023), Chemodenervation (08/29/2023), Chemodenervation (05/09/2023), Trigger point (02/07/2023), Arthroscopy of knee (02/26/2020), Cystourethroscopy with dilation of urethral stricture (03/31/2018), Urodynamics (03/31/2018), Spinal cord stimulator implant ( 02/12/2018), left lumbar sympathetic plexus block (10/16/2017), Left sympathetic plexus block (07/24/2017), Arthroscopy of knee, Colonoscopy, EGD - Esophagogastroduodenoscopy, L salpingooopherectomy,Right Eye Tubal Shunt, spinal cord stimulator trial, Vaginal hysterectomy. What to do next Scheduled Follow-Up Appointments 2024 1:45 PM EDT With: Camilo Dersa DO Where: [facility] Saturday 8:45 AM EDT With: Where: [facility] Saturday 9:45 AM EDT With: Where: [facility] 2024 8:30 AM EDT With: Where: [facility] 2024 9:30 AM EDT With: Where: [facility] Saturday 8:45 AM EDT With: Where: [facility] Saturday 9:45 AM EDT With: Where: [facility] 2024 8:30 AM EDT With: Where: [facility] 2024 9:30 AM EDT With: Where: [facility] Saturday 8:45 AM EDT With: Where: [facility] Saturday 9:45 AM EDT With: Where: [facility] Saturday 9:20 AM EDT With: Lakia Mcdonnell Where: [facility] [address] [place] [address] 2024 8:30 AM EDT With: Where: [facility] 2024 9:30 AM EDT With: Where: [facility] Saturday 8:45 AM EDT With: Where: [facility] Saturday 9:45 AM EDT With: Where: [facility] 2024 9:30 AM EDT With: Where: [facility] 2024 10:30 AM EDT With: Where: [facility] Saturday 8:45 AM EDT With: Where: [facility] Saturday 9:45 AM EDT With: Where: [facility] 2024 8:30 AM EDT With: Where: [facility] Nov.26, 2024 9:30 AM EDT With: Where: [facility] Saturday 8:45 AM EDT With: Where: [facility] Saturday 9:45 AM EDT With: Where: [facility] Saturday 8:45 AM EDT With: Where: [facility] Saturday 9:45 AM EDT With: Where: [facility] Saturday 12:30 PM EDT With: Lakia Mcdonnell Where: [facility] [address] [place] [address]- Saturday 8:15 AM EDT With: Where: [facility] Saturday 9:15 AM EDT With: Where: [facility] Saturday 8:15 AM EDT With: Where: [facility] Saturday 9:15 AM EDT With: Where: [facility] Saturday 8:30 AM EDT With: Where: [facility] Saturday 9:30 AM EDT With: Where: [facility] 2024 8:30 AM EDT With: Where: [facility] 2024 9:30 AM EDT With: Where: [facility] Saturday 9:20 AM EST With: Lakia Mcdonnell Where: [facility] [address] [place] [address]- Medications What How Much When Why Instructions Unchanged allopurinol 100 Milligram By (more content not included)...[facility] - OTon [id number] Note - OT Nonvisit Note - OT Pt. cancelled, stating for personal reasons. She confirmed her next appointment. [facility]Non[facility] - PTon [id number] Note - PTNonvisit Note - PT Pt cancelled due to personal reasons.[facility]Non[facility] - PTon 15-05-7597Tvdlofgu Note - PTNonvisit Note - PT Per the senior front end engineer, Patient cancelled the week of 09/21 through 09/25 at the window. She will not be available this week. [facility] Nonvisit Note - PTon [id number] Note - PTNonvisit Note - PT Cancel this date due to a .[facility] CampusAmbulatory Visit Summaryon [id number] Visit SummaryAmbulatory Visit Summary JESSICA GUTIERREZ :1975 Visit Date:09/09/2024 Ambulatory Visit Instructions Your Diagnosis Urinary retention Your Care Team Attending Physician - Yovana CAMPBELL, Lakia Estrella Primary Care Physician - Hunter Quinteros MD This Is Your Medications List allopurinol baclofen (baclofen 20 mg Tab) brinzolamide ophthalmic (Azopt 0.01 Susp-Opth) clopidogrel (clopidogrel 75 mg Tab) desvenlafaxine (Pristiq 100 mg Tab-ER) diclofenac (diclofenac sodium 75 mg Oral EC Tab) doxycycline (doxycycline hyclate 100 mg Cap) famotidine (Pepcid 40 mg Tab) fluticasone-vilanterol (Breo Ellipta 100 mcg-25 mcg inhalation powder) furosemide (Lasix 20 mg Tab) linaclotide (Linzess 290 mcg oral capsule) losartan meclizine (meclizine 25 mg Tab) ondansetron (Zofran) oxcarbazepine (oxcarbazepine 300 mg Tab) oxybutynin potassium acid phosphate (K-Phos Original 500 mg oral tablet) potassium citrate (potassium CITRATE 10 mEq ER Tab) prednisoLONE ophthalmic (Prednisol 1% ophthalmic solution) pregabalin (pregabalin 200 mg Cap) quetiapine (Seroquel) tramadol (Ultram 50 mg Tab) Procedures Performed Injection (03/24/2024), Denervation (12/02/2023), Chemodenervation (08/29/2023), Chemodenervation (05/09/2023), Trigger point (02/07/2023), Arthroscopy of knee (02/26/2020), Cystourethroscopy with dilation of urethral stricture (03/31/2018), Urodynamics (03/31/2018), Spinal cord stimulator implant ( 02/12/2018), left lumbar sympathetic plexus block (10/16/2017), Left sympathetic plexus block (07/24/2017), Arthroscopy of knee, Colonoscopy, EGD - Esophagogastroduodenoscopy, L salpingooopherectomy,Right Eye Tubal Shunt, spinal cord stimulator trial, Vaginal hysterectomy. What to do next Scheduled Follow-Up Appointments 2024 8:30 AM EDT Where: [facility] 2024 9:30 AM EDT Where: [facility] Saturday 8:45 AM EDT Where[facility] Saturday 9:45 AM EDT Where: [facility] 2024 8:30 AM EDT Where: [facility] Saturday 8:15 AM EDT Where: [facility] Saturday 11:30 AM EDT Where: [facility] [address] [place] [address]- Saturday 8:15 AM EDT Where: [facility] Saturday 8:45 AM EDT Where: [facility] Medications What How Much When Why Instructions Unchanged allopurinol 100 Milligram By Mouth Every day Unchanged baclofen (baclofen 20 mg Tab) 1 Tablets By Mouth 3 times a day Unchanged brinzolamide ophthalmic (Azopt 0.01 Susp-Opth) 1 Drops Ophthalmic 4 times a day right eye Unchanged clopidogrel (clopidogrel 75 mg Tab) 1 Tablets By Mouth Every day Unchanged desvenlafaxine (Pristiq 100 mg Tab-ER) 1 Tablets By Mouth Every day Unchanged diclofenac (diclofenac sodium 75 mg Oral EC Tab) 1 Tablets By Mouth 2 times a day Unchanged doxycycline (doxycycline hyclate 100 mg Cap) Unchanged famotidine (Pepcid 40 mg Tab) 1 Tablets By Mouth Once a day (at bedtime) Unchanged fluticasone-vilanterol (Breo Ellipta 100 mcg-25 mcg inhalation powder) 1 Puffs InhalationEvery dose unit Unchanged furosemide (Lasix 20 mg Tab) 1 Tablets By Mouth Every day Unchanged linaclotide (Linzess 290 mcg oral capsule) 1 Capsules By Mouth Every day Unchanged losartan 25 Milligram By Mouth 2 times a day Unchanged meclizine (meclizine 25 mg Tab) 1 Tablets By Mouth Every 4 hours as needed for Dizziness Unchanged ondansetron (Zofran) 4 Milligram By Mouth As needed for as needed for nausea/vomiting Unchanged oxcarbazepine (oxcarbazepine 300 mg Tab) 2 Tablets By Mouth At bedtime Unchanged oxybutynin 5 Milligram By Mouth Every day Unchanged potassium acid phosphate (K-Phos Original 500 mg oral tablet) 1 tab By Mouth 2 times a day Unchanged potassium citrate (potassium CITRATE 10 mEq ER Tab) 2 Tablets By Mouth 2 times a day Unchanged prednisoLONE ophthalmic (Prednisol 1% ophthalmic solution) 1 Drops Right eye 4 times a day Unchanged pregabalin (pregabalin 200 mg Cap) 1 Capsules By Mouth 3 times a day Transverse myelitis Duration: 90 Days Unchanged quetiapine (Seroquel) 100 Milligram By Mouth Once a day (at bedtime) Unchanged tramadol (Ultram 50 mg Tab) 1 Tablets By Mouth 2 times a day as needed for as needed for pain Reflex sympathetic dystrophy of left lower extremity Allergies Contrast Dye (throat swelling) cabbage (Vomit, Diarrhea) Problems Ongoing - Any problem that you are currently receiving treatment for. Abnormality of gait Acute cerebrovascular accident (CVA) Anxiety Cervical disc disease Diastasis recti Gastroparesis GERD - Gastro-esophageal reflux disease Glaucoma History of migraine. HTN (hypertension) Hx of scoliosis Hypersomnia Hypoglycemia Hypotonic neurogenic bladder (more content not included)...[facility]Non[facility] Note - OTon [id number] Note - OTNonvisit Note - OT Pt. cancelled today's session as she is having medical issues.[facility]Nonvisit Note - PTon [id number] Note - PTNonvisit Note - PT Pt called to cancel all week due to medical problems and other appts.[facility]Non[facility] - OTon [id number] Note - OT Nonvisit Note - OT Pt. cancelled today's session d/t medical issues.[facility]Nonvisit Note - PTon [id number] Note - PTNonvisit Note - PT Pt called to cancel due to medical problem.[facility] CampusCNPN on [id number] (PULMST) JONNIEJESSICA ([id number]) 1975 F [place] Date Time Provider Department 08/04/24 ODILIA CORRIGAN During your visit today, we recorded the following information about you: Crystal Maddox 08/04/2024 3:37 PM Signed 1st attempt: LVM. Sent [employer] message. Cori Serna 08/05/2024 8:41 AM Signed 2nd attempt- left DVM to notify patient that chest CT was ordered by Dr. Parsons 3rd attempt- sent Allergies As of Date: 08/04/2024 Noted Allergy Reaction GADOLINIUM-CONTAINING CONTRAST ME*03/28/2018 10 - Anaphylaxis AMITRIPTYLINE HCL 12/14/2020 2 - Rash CABBAGE 03/28/2018 11 - Vomiting Date Reviewed: 01/31/2023 Reviewed by: Haile Barrios MD - Fully Assessed Prescriptions as of 08/05/2024 - baclofen 20 mg tablet TAKE 1 TABLET BY MOUTH TWICE A DAY - methocarbamol (ROBAXIN) 500 mg tablet TAKE 1 TABLET BY MOUTH IN THE MORNING AND 2 TABLETS AT NIGHT - ubrogepant (UBRELVY) 50 mg tablet Take 1 tablet by mouth as needed. - allopurinol (ZYLOPRIM) 100 mg tablet Take 1 tablet by mouth every afternoon. - oxybutynin XL (DITROPAN XL) 5 mg 24 hr tablet Take 1 tablet by mouth every afternoon. - K-PHOS ORIGINAL 500 mg tablet Take 1 tablet by mouth every 12 hours. - traMADol (ULTRAM) 50 mg tablet Take 1 tablet by mouth as needed. - rimegepant (NURTEC ODT) 75 mg disintegrating tablet Take 1 tablet by mouth once daily as needed. - potassium chloride (K-TAB) 10 mEq tablet Take 2 tablets by mouth twice daily. - linaCLOtide (LINZESS) 290 mcg capsule Take 1 capsule by mouth DAILY (6 AM). - meclizine (ANTIVERT) 25 mg tab Take 1 tablet by mouth every 4 hours as needed (for dizziness.). - ascorbic acid, vitamin C, (VITAMIN C) 500 mg tablet Take 1 tablet by mouth once daily. - pregabalin (LYRICA) 150 mg capsule [...] once daily. 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.*04/02/2017 Obesity, Class I, BMI 30-34.9 [E66.811] 11/28/2021 Acute transverse myelitis (HCC) [G37.3] 08/03/2022 Encounter Status:Closed by GHAZALTERIABIGAIL LOAIZAESTEFANIA on 08/04/24[facility] - PTon [id number] Note - PTNonvisit Note - PT Cancel due to no transportation.[facility]Non[facility] Note - OTon [id number] Note - OTNonvisit Note - OT Pt cancelled D/T medical reason,[facility]Nonvisit Note - PTon [id number] Note - PTNonvisit Note - PT Per the senior front end engineer, Cxl per patient due to medical reasons. Conf 08/03. [facility] HospitalAmb[facility] Visit Summaryon [id number] Visit SummaryAmbulatory Visit Summary JESSICA GUTIERREZ :1975 Visit Date:07/29/2024 Ambulatory Visit Instructions Your Care Team Attending Physician - Yovana CAMPBELL, Lakia Estrella Primary Care Physician - Hunter Quinteros MD This Is Your Medications List allopurinol baclofen (baclofen 20 mg Tab) brinzolamide ophthalmic (Azopt 0.01 Susp-Opth) clopidogrel (clopidogrel 75 mg Tab) desvenlafaxine (Pristiq 100 mg Tab-ER) diclofenac (diclofenac sodium 75 mg Oral EC Tab) doxycycline (doxycycline hyclate 100 mg Cap) famotidine (Pepcid 40 mg Tab) fluticasone-vilanterol (Breo Ellipta 100 mcg-25 mcg inhalation powder) furosemide (Lasix 20 mg Tab) linaclotide (Linzess 290 mcg oral capsule) losartan meclizine (meclizine 25 mg Tab) ondansetron (Zofran) oxcarbazepine (oxcarbazepine 300 mg Tab) oxybutynin potassium acid phosphate (K-Phos Original 500 mg oral tablet) potassium citrate (potassium CITRATE 10 mEq ER Tab) prednisoLONE ophthalmic (Prednisol 1% ophthalmic solution) pregabalin (pregabalin 200 mg Cap) quetiapine (Seroquel) tramadol (Ultram 50 mg Tab) Procedures Performed Injection (03/24/2024), Denervation (12/02/2023), Chemodenervation (08/29/2023), Chemodenervation (05/09/2023), Trigger point (02/07/2023), Arthroscopy of knee (02/26/2020), Cystourethroscopy with dilation of urethral stricture (03/31/2018), Urodynamics (03/31/2018), Spinal cord stimulator implant ( 02/12/2018), left lumbar sympathetic plexus block (10/16/2017), Left sympathetic plexus block (07/24/2017), Arthroscopy of knee, Colonoscopy, EGD - Esophagogastroduodenoscopy, L salpingooopherectomy,Right Eye Tubal Shunt, spinal cord stimulator trial, Vaginal hysterectomy. What to do next Scheduled Follow-Up Appointments 2024 12:30 PM EDT Where: [facility] 2024 1:45 PM EDT Where: [facility] Saturday 8:30 AM EDT Where: [facility] Saturday 9:45 AM EDT Where: [facility] Saturday 9:15 AM EDT Where: [facility] Saturday 10:15 AM EDT Where: [facility] Saturday 8:30 AM EDT Where: [facility] Saturday 9:45 AM EDT Where: [facility] 2024 9:30 AM EDT Where: [facility] 2024 10:30 AM EDT Where: [facility] Saturday 8:30 AM EDT Where: [facility] Saturday 9:30 AM EDT Where: [facility] Saturday 8:30 AM EDT Where: [facility] 2024 7:30 AM EDT Where: [facility] Saturday 7:30 AM EDT Where: [facility] Saturday 8:45 AM EDT Where: [facility] 2024 8:30 AM EDT Where: [facility] 2024 9:30 AM EDT Where: [facility] Saturday 8:45 AM EDT Where: [facility] Saturday 9:45 AM EDT Where: [facility] Saturday 8:30 AM EDT Where: [facility] Saturday 9:30 AM EDT Where: [facility] Saturday 8:45 AM EDT Where: [facility] Saturday 9:45 AM EDT Where: [facility] Saturday 8:30 AM EDT Where: [facility] 2024 9:30 AM EDT Where: [facility] Saturday 10:00 AM EDT Where: [facility] Saturday 8:15 AM EDT Where: [facility] 2024 8:30 AM EDT Where: [facility] Saturday 8:45 AM EDT Where: [facility] Saturday 8:30 AM EDT Where: [facility] Saturday 8:15 AM EDT Where: [facility] Saturday 8:15 AM EDT Where: [facility] Saturday 8:45 AM EDT Where: [facility] Medications What How Much When Why Instructions Unchanged allopurinol 100 Milligram By Mouth Every day Unchanged baclofen (baclofen 20 mg Tab) 1 Tablets By Mouth 3 times a day Unchanged brinzolamide ophthalmic (Azopt 0.01 Susp-Opth) 1 Drops Ophthalmic 4 times a day right eye Unchanged clopidogrel (clopidogrel 75 mg Tab) 1 Tablets By Mouth Every day Unchanged desvenlafaxine (Pristiq 100 mg Tab-ER) 1 Tablets By Mouth Every day Unchanged diclofenac (diclofenac sodium 75 mg Oral EC Tab) 1 Tablets By Mouth 2 times a day Unchanged doxycycline (doxycycline hyclate 100 mg Cap) Unchanged famotidine (Pepcid 40 mg Tab) 1 Tablets By Mouth Once a day (at bedtime) Unchanged fluticasone-vilanterol (Breo Ellipta 100 mcg-25 mcg inhalation powder) 1 Puffs InhalationEvery day 30 dose unit Unchanged furosemide (Lasix 20 mg Tab) 1 Tablets By Mouth Every day Unchanged linaclotide (Linzess 290 mcg oral capsule) 1 Cap (more content not included)...[facility]Non[facility] Note - OTon 07-23-2024 Nonvisit Note - OTNonvisit Note - OT Pt cancelled D/T reported she is out of town,[facility] Nonvisit Note - PTon [id number] Note - PTNonvisit Note - PT Per the senior front end engineer, out of town. [facility]Nonvisit Note - OTon [id number] Note - OTNonvisit Note - OT Pt. cancelled today's appointment d/t medical issues.[facility]Nonvisit Note - PTon [id number] Note - PTNonvisit Note - PT Per the senior front end engineer, Jessica Gutierrez canceled d/t 'medical.' [facility] CampusMA Mamm Screen w/CAD if perf and 3D Bilon [id number] Mamm Screen w/CAD if perf and 3D BilExam Date/Time: 07/09/2024 12:19 EDT Reason for Exam: Z12.31 Report IMPRESSION: BIRADS 2 BENIGN FINDINGS, NORMAL INTERVAL FOLLOW-UP.12 MONTH RECALL. CLINICAL HISTORY: Z12.31. COMPARISON: 11/27/2017. COMMENT: Routine views and tomosynthesis views of both breasts were obtained. The breasts are heterogeneously dense, which may obscure small masses. Asymmetry in breast density appears stable. There are minimal vascular calcifications. No dominant breast mass nor neoplastic calcifications are noted. There has been no significant change when compared to the prior exam. The examination was reviewed with Computer Aided Detection. Breast Density: Yes Mammography is very important to your health. The current [employer] and National Comprehensive Cancer Network guidelines recommends annual mammography beginning at age 40. This facility utilizes a reminder system to ensure all patients receive reminder notifications at the appropriate time based on the recommendations of this exam. Board Certified Radiologists. Accredited by the ACR and FDA. Ordering Provider: Hunter Quinteros FINAL REPORT Dictated: 07/09/2024 3:41 pm Yamil Hu M.D. Signed (Electronic Signature): 07/09/2024 3:41 pm Signed by: Yamil Hu M.D. Transcribed by: ROSEMARIE Technologist: KATINA Assessment: BI-RADS Category 2-Benign finding Recommendation: Normal interval follow-up[facility] Ambulatory Visit Summaryon [id number] Visit SummaryAmbulatory Visit Summary JESSICA GUTIERREZ :1975 Visit Date:07/08/2024 Ambulatory Visit Instructions Your Care Team Attending Physician - Yovana CAMPBELL, Lakia Estrella Primary Care Physician - Hunter Quinteros MD This Is Your Medications List allopurinol baclofen (baclofen 20 mg Tab) brinzolamide ophthalmic (Azopt 0.01 Susp-Opth) clopidogrel (clopidogrel 75 mg Tab) desvenlafaxine (Pristiq 100 mg Tab-ER) diclofenac (diclofenac sodium 75 mg Oral EC Tab) doxycycline (doxycycline hyclate 100 mg Cap) famotidine (Pepcid 40 mg Tab) fluticasone-vilanterol (Breo Ellipta 100 mcg-25 mcg inhalation powder) furosemide (Lasix 20 mg Tab) linaclotide (Linzess 290 mcg oral capsule) losartan meclizine (meclizine 25 mg Tab) ondansetron (Zofran) oxcarbazepine (oxcarbazepine 300 mg Tab) oxybutynin potassium acid phosphate (K-Phos Original 500 mg oral tablet) potassium citrate (potassium CITRATE 10 mEq ER Tab) prednisoLONE ophthalmic (Prednisol 1% ophthalmic solution) pregabalin (pregabalin 200 mg Cap) quetiapine (Seroquel) tramadol (Ultram 50 mg Tab) Procedures Performed Injection (03/24/2024), Denervation (12/02/2023), Chemodenervation (08/29/2023), Chemodenervation (05/09/2023), Trigger point (02/07/2023), Arthroscopy of knee (02/26/2020), Cystourethroscopy with dilation of urethral stricture (03/31/2018), Urodynamics (03/31/2018), Spinal cord stimulator implant ( 02/12/2018), left lumbar sympathetic plexus block (10/16/2017), Left sympathetic plexus block (07/24/2017), Arthroscopy of knee, Colonoscopy, EGD - Esophagogastroduodenoscopy, L salpingooopherectomy,Right Eye Tubal Shunt, spinal cord stimulator trial, Vaginal hysterectomy. What to do next Scheduled Follow-Up Appointments 2024 9:15 AM EDT With: Where: [facility] 2024 10:30 AM EDT With: Where: [facility] 2024 12:00 PM EDT With: Where: [facility] Saturday 9:30 AM EDT With: Where: [facility] 2024 12:15 PM EDT With: Where: [facility] 2024 1:45 PM EDT With: Where: [facility] Saturday 8:30 AM EDT With: Where: [facility] 2024 2:00 PM EDT With: Where: [facility] Saturday 10:00 AM EDT With: Where: [facility] Saturday 10:40 AM EDT With: Lakia Mcdonnell Where: [facility] [address] [place] [address] [place] [address]- 2024 12:30 PM EDT With: Where: [facility] Saturday 8:30 AM EDT With: Where: [facility] Saturday 9:15 AM EDT With: Where: [facility] Saturday 8:30 AM EDT With: Where: [facility] 2024 9:30 AM EDT With: Where: [facility] Saturday 9:30 AM EDT With: Where: [facility] Medications What How Much When Why Instructions Unchanged allopurinol 100 Milligram By Mouth Every day Unchanged baclofen (baclofen 20 mg Tab) 1 Tablets By Mouth 3 times a day Unchanged brinzolamide ophthalmic (Azopt 0.01 Susp-Opth) 1 Drops Ophthalmic 4 times a day right eye Unchanged clopidogrel (clopidogrel 75 mg Tab) 1 Tablets By Mouth Every day Unchanged desvenlafaxine (Pristiq 100 mg Tab-ER) 1 Tablets By Mouth Every day Unchanged diclofenac (diclofenac sodium 75 mg Oral EC Tab) 1 Tablets By Mouth 2 times a day Unchanged doxycycline (doxycycline hyclate 100 mg Cap) Unchanged famotidine (Pepcid 40 mg Tab) 1 Tablets By Mouth Once a day (at bedtime) Unchanged fluticasone-vilanterol (Breo Ellipta 100 mcg-25 mcg inhalation powder) 1 Puffs InhalationEvery day 30 dose unit Unchanged furosemide (Lasix 20 mg Tab) 1 Tablets By Mouth Every day Unchanged linaclotide (Linzess 290 mcg oral capsule) 1 Capsules By Mouth Every day Unchanged losartan 25 Milligram By Mouth 2 times a day Unchanged meclizine (meclizine 25 mg Tab) 1 Tablets By Mouth Every 4 hours as needed for Dizziness Unchanged ondansetron (Zofran) 4 Milligram By Mouth As needed for as needed for nausea/vomiting Unchanged oxcarbazepine (oxcarbazepine 300 mg Tab) 2 Tablets By Mouth At bedtime Unchanged oxybutynin 5 Milligram By Mouth Every day Unchanged potassium acid phosphate (K-Phos Original 500 mg oral tablet) 1 tab By Mouth 2 times a day Unchanged potassium citrate (potassium CITRATE 10 mEq ER Tab) 2 Tablets By Mouth 2 times a day Unchanged prednisoLONE ophthalmic (Prednisol 1% ophthalmic solution) 1 Drops Right eye 4 times a day Unchanged pregabalin (pregabalin 200 mg Cap) 1 Capsules By Mouth 3 times a day Transverse myelitis Duration: 90 Days Unchanged quetiapine (Seroquel) 100 Milligram By Mouth Once a day (at bedtime) Unchanged tramad (more content not included)...[facility] Nonvisit Note - PTon [id number] Note - PTNonvisit Note - PT Per the senior front end engineer, pt can not do these days she does not wish to reschedule this date. [facility] CampusOperative Reporton 07-02-2024 Operative ReportOperative Report History, physical examination, and personal review of pertinent imaging results indicate a diagnosis of: -Right shoulder contracture -Right shoulder pain -Multiple sclerosis Plan: -Right upper extremity/trunk was injected today and 5 total muscle groups with Botox, 400 units, procedure described below. 3 right upper extremity muscles and 2 trunk muscles on the right. Discussed that we can follow-up in 3 months or sooner if needed -we can also perform right shoulder intra-articular corticosteroid injection as long as they provide effective relief for her, we will also continue her on Lyrica 200 mg 3 times daily as this is effective for her as well An in office procedure was performed today. Risks and benefits were discussed at length, verbal consent was obtained from the patient. The areawas prepped under strict aseptic technique using chloraprep solution, sterile gloves were utilized. Location: Right upper extremity, multiple muscle groups. Ultrasound was utilized to identify these muscles Anatomic Landmarks: Pectoralis muscle as well as the FCR, FDP, and right deltoid as well as right latissimus dorsi. 25 gauge 1.5 inch needle was utilized for visualization under ultrasound. Medications: 400 units of Botox was diluted into 8 cc of normal saline, 3 cc of 2% lidocaine was injected at the needle insertion sites. Procedure: Patient was identified, procedural sites were identified and prior notes were reviewed prior to performing this. We injected 400 units of Botox total after cleaning the skin and identifying muscle groups using sterile equipment and an ultrasound device. Before injection of any Botox, aspiration was performed and did not reveal any vascular uptake at each site. The sites were identified as below: 1. 150u RUE pectoralis, divided between 3 sites 2. 50u RUE flexor carpi radialis, 1 site 3. 50u RUE flexor digitorum profundus, 1 site 4. 100u RUE deltoid, 2 sites 5. 50u RUE latissimus dorsi, 1 site the patient tolerated the procedure well without complication and will follow up regarding changes after procedure. Patient observed post-procedure without further issue or new complaints. Improvement in pain was noted.[facility] CampusComment on above: Result Comment: Electronically Signed By: Camilo Deras DO\Date and Time Signed: 07/02/24 12:16 EDTC Urineon [id number] identified Cx Nom (U)Microbiology PROCEDURE: Urine Culture [R1] SOURCE: U Cath BODY SITE: COLLECTED DATE/TIME: 06/17/2024 13:43 EDT RECEIVED DATE/TIME: 06/18/2024 17:23 EDT START DATE/TIME: 06/18/2024 17:24 EDT FREE TEXT SOURCE: marie UREÑA-Amber, Lakia Yen STUDENT FINANCE ADVISOR-C, Lakia Estrella FINAL REPORTS Final Report [] Verified Date/Time: 06/22/2024 08:39 EDT >100,000 cfu/ml Methicillin-Resistant Staphylococcus aureus MRSA >100,000 cfu/ml Acinetobacter lwoffii group 25,000 cfu/ml Enterococcus faecalis SUSCEPTIBILITY RESULTS LEGEND: S=Susceptible, N/R=Not Reported, Blank=Data not available, or drug not advisable or tested, I=Intermediate, ESBL=Extended spectrum beta-lactamase, R=Resistant, TFG=Thymidine-dependent strain, DANNY=Beta-lactamase positive, MARYAM=mcg/m;(mg/L), S*=Predicted susceptible interp, R*=Predicted resistant interp MRSA Acilwog Entfaeca Antibiotic MARYAM Dilutn MARYAM Interp MARYAM Dilutn MARYAM Interp MARYAM Dilutn MARYAM Interp Amoxicillin/ <=4/2 R* Clavulanate Ampicillin >8 R* <=2 S Ampicillin/ <=8/4 R* <=8/4 S Sulbactam Cefazolin <=8 R* Cefepime 4 S Ceftaroline <=0.5 S Ceftazidime 8 S Ciprofloxacin <=1 S <=1 S Daptomycin <=1 S <=1 S Gentamicin <=4 S <=2 S Levofloxacin <=1 S <=1 S Linezolid <=2 S <=2 S Meropenem <=1 S Nitrofurantoin <=32 S <=32 S Oxacillin >2 R Penicillin >8 R* 2 S Rifampin <=1 S <=1 S Tetracycline <=4 S <=4 S >8 R Tobramycin <=2 S Trimethoprim/ <=0.5/9.5 S <=2/38 S Sulfa Vancomycin 1 S <=0.5 S Performing Locations R1: This test was performed at: [facility], [address] [place] [address], [facility] , , AovculTujahsSumma Health [facility] CampusComment on above:Performed By: #### [id number] #### [facility] [address] [place] [id number] Note - PTon [id number] Note - PTNonvisit Note - PT Cancel due to medicalSum[facility] CampusNonvisit Note - OTon [id number] Note - OTPositiveSumma Health Akron CampusC Urineon [id number] identified Cx Nom (U)Microbiology PROCEDURE: Urine Culture [R1] SOURCE: U Suprapubic BODY SITE: COLLECTED DATE/TIME: 05/28/2024 13:18 EDT RECEIVED DATE/TIME: 05/28/2024 19:03 EDT START DATE/TIME: 05/28/2024 19:03 EDT FREE TEXT SOURCE: ADRIAN Sweet APRN, ADRIAN Sweet APRN, Sarai X Sarai X FINAL REPORTS Final Report [] Verified Date/Time: 05/31/2024 09:37 EDT 70,000 cfu/ml Methicillin-Resistant Staphylococcus aureus MRSA 50,000 cfu/ml Enterococcus faecalis SUSCEPTIBILITY RESULTS LEGEND: S=Susceptible, N/R=Not Reported, Blank=Data not available, or drug not advisable or tested, I=Intermediate, ESBL=Extended spectrum beta-lactamase, R=Resistant, TFG=Thymidine-dependent strain, DANNY=Beta-lactamase positive, MARYAM=mcg/m;(mg/L), S*=Predicted susceptible interp, R*=Predicted resistant interp MRSA Entfaeca Antibiotic MARYAM Dilutn MARYAM Interp MARYAM Dilutn MARYAM Interp Amoxicillin/ <=4/2 R* Clavulanate Ampicillin >8 R* <=2 S Ampicillin/ 16/8 R* Sulbactam Cefazolin 16 R* Ceftaroline <=0.5 S Ciprofloxacin <=1 S <=1 S Daptomycin <=1 S 4 S Gentamicin 8 I Levofloxacin <=1 S <=1 S Linezolid <=2 S <=2 S Nitrofurantoin <=32 S <=32 S Oxacillin >2 R Penicillin >8 R* 2 S Rifampin <=1 S >2 R Tetracycline >8 R >8 R Trimethoprim/ <=0.5/9.5 S Sulfa Vancomycin 1 S 1 S Performing Locations R1: [facility] performed at: [facility], [address] [place] [address], [id number] , , PtidrdNgoojt [facility] CenterComment on above:Performed By: #### [id number] #### [facility] [address] [place], [place] [address]Xcvdyiczkx Visit Summaryon [id number] Visit Summary Ambulatory Visit Summary JESSICA GUTIERREZ :1975 Visit Date:05/28/2024 Ambulatory Visit Instructions Your Diagnosis UTI (urinary tract infection) Hypotonic neurogenic bladder Your Care Team Attending Physician - Micki WANG, ADRIAN, Sarai Burnett Primary Care Physician - Hunter Quinteros MD This Is Your Medications List allopurinol brinzolamide ophthalmic (Azopt 0.01 Susp-Opth) clopidogrel (clopidogrel 75 mg Tab) desvenlafaxine (Pristiq 100 mg Tab-ER) diclofenac (diclofenac sodium 75 mg Oral EC Tab) famotidine (Pepcid 40 mg Tab) fluticasone-vilanterol (Breo Ellipta 100 mcg-25 mcg inhalation powder) furosemide (Lasix 20 mg Tab) linaclotide (Linzess 290 mcg oral capsule) losartan meclizine (meclizine 25 mg Tab) ondansetron (Zofran) oxcarbazepine (oxcarbazepine 300 mg Tab) oxybutynin potassium acid phosphate (K-Phos Original 500 mg oral tablet) potassium citrate (potassium CITRATE 10 mEq ER Tab) prednisoLONE ophthalmic (Prednisol 1% ophthalmic solution) pregabalin (pregabalin 200 mg Cap) quetiapine (Seroquel) tramadol (Ultram 50 mg Tab) Procedures Performed Denervation (12/02/2023), Chemodenervation (08/29/2023), Chemodenervation (05/09/2023), Trigger point (02/07/2023), Arthroscopy of knee (02/26/2020), Cystourethroscopy with dilation of urethral stricture (03/31/2018), Urodynamics (03/31/2018), Spinal cord stimulator implant (02/12/2018), left lumbar sympathetic plexus block (10/16/2017), Left sympathetic plexus block (07/24/2017), Arthroscopy of knee, Colonoscopy, EGD - Esophagogastroduodenoscopy, L salpingooopherectomy, Right Eye Tubal Shunt, s usman cord stimulator trial, Vaginal hysterectomy. What to do next Scheduled Follow-Up Appointments Saturday 8:30 AM EDT With: Where: [facility] Saturday 9:45 AM EDT With: Where: [facility] Saturday 8:00 AM EDT With: Where: [facility] Saturday 9:00 AM EDT With: Where: [facility] 2024 9:00 AM EDT With: Where: [facility] 2024 10:00 AM EDT With: Where: [facility] 2024 11:30 AM EDT With: Where: [facility] Saturday 8:00 AM EDT With: Where: [facility] Saturday 9:00 AM EDT With: Where: [facility] 2024 8:15 AM EDT With: Where: [facility] 2024 9:15 AM EDT With: Where: [facility] Saturday 8:15 AM EDT With: Where: [facility] Saturday 9:15 AM EDT With: Where: [facility] Saturday 10:40 AM EDT With: Lakia Mcdonnell Where: [facility] [address] [place] [address]- 2024 8:15 AM EDT With: Where: [facility] 2024 9:15 AM EDT With: Where: [facility] 2024 11:00 AM EDT With: Kina Lee PA-C Where: [facility] [address] [place] [address]- Saturday 8:45 AM EDT With: Where: [facility] Saturday 9:45 AM EDT With: Where: [facility] 2024 8:15 AM EDT With: Where: [facility] 2024 9:15 AM EDT With: Where: [facility] Saturday 8:45 AM EDT With: Where: [facility] Saturday 9:45 AM EDT With: Where: [facility] 2024 8:30 AM EDT With: Where: [facility] 2024 9:30 AM EDT With: Where: [facility] 2024 11:00 AM EDT With: Camilo Deras DO Where: [facility] Saturday 12:45 PM EDT With: Where: [facility] Saturday 1:45 PM EDT With: Where: [facility] Saturday 10:40 AM EDT With: Lakia Mcdonnell Where: [facility] [address] [place] [address]- 2024 8:15 AM EDT With: Where: [facility] 2024 9:15 AM EDT With: Where: [facility] Saturday 8:15 AM EDT With: Where: [facility] Saturday 9:15 AM EDT With: Where: [facility] 2024 12:15 PM EDT With: Where: [facility] 2024 1:45 PM EDT With: Where: [facility] Medications What How Much When Why Instructions Unchanged allopurinol 100 Milligram By Mouth Every day Unchanged brinzolamide ophthalmic (Azopt 0.01 Susp-Opth) 1 Drops Ophthalmic 4 times a day right eye Unchanged c (more content not included)...[facility] Urology Office/Clinic Noteon [id number] Office/Clinic NoteUrology Office/Clinic Note History of Present Illness I have reviewed and verified the staff HPI to be accurate for this encounter. Portions of this record may have been created with voice recognition artificial intelligence software, specifically [employer] and or [employer]. Substitutions may have occurred due to the inherent limitations of voice recognition and artificial intelligence software. Physical Exam General: Well developed, well nourished, in no acute distress. Assessment/Plan 1. UTI (urinary tract infection) (N39.0: Urinary tract infection, site not specified) c/o foul odor, some spasms/discomfort UA today w/ pos nit, small blood, large leuks. Increase fluid intake, avoid bladder irritants ER for fever, NV, severe flank pain, inability to urinate -ucx sent today, will call if needing to change tx plan based on culture -start macrobid, finish unless instructed otherwise by our office 2. Hypotonic neurogenic bladder (N31.9: Neuromuscular dysfunction of bladder, unspecified) SPT exchanged today -RTO 3 wks for next exchange Ordered: Change cystostomy tube/simple 33761 Orders: nitrofurantoin, 100 mg = 1 cap(s), Oral, BID, X 5 day(s), # 10 cap(s), Refills(s) 0, Pharmacy: [facility]/pharmacy #[id number], 164, cm, 03/24/24 14:01:00 EST, Height/Length Dosing, 91, kg, 03/24/24 14:01:00 EST,Weight Dosing Follow-up With When Contact Information Micki WANG, STUDENT FINANCE ADVISOR-C, Sarai X, FAM, URL Additional Instructions: 3 wk cath change Patient Education Urinary Tract Infection, Adult Problem List/Past Medical History Ongoing Abnormality of [...] syndrome Historical Abdominal pressure Dehydration Procedure/Surgical History Denervation (12/02/2023), Chemodenervation (08/29/2023), Chemodenervation (05/09/2023), Trigger point (02/07/2023), Arthroscopy of knee (02/26/2020), Cystourethroscopy with dilation of urethral stricture (03/31/2018), Urodynamics (03/31/2018), Spinal cord stimulator implant (02/12/2018), left lumbar sympathetic plexus block (10/16/2017), Left sympathetic plexus block (07/24/2017), Arthroscopy of knee, Colonoscopy, EGD - Esophagogastroduodenoscopy, L salpingooopherectomy, Right Eye Tubal Shunt, s usman cord stimulator trial, Vaginal hysterectomy. Medications allopurinol, 100 mg, Oral, Daily Azopt 0.01 Susp-Opth, 1 drop(s), OPTH, QID Breo Ellipta 100 mcg-25 mcg inhalation powder, 1 puff(s), Inhalation, Daily clopidogrel 75 mg Tab, 75 mg= 1 tab(s), Oral, Daily diclofenac sodium 75 mg Oral EC Tab, 75 mg= 1 tab(s), Oral, BID K-Phos Original 500 mg oral tablet, 1 tab, Oral, BID, 11 refills Lasix 20 mg Tab, 20 mg= 1 tab(s), Oral, Daily Linzess 290 mcg oral capsule, 290 mcg= 1 cap(s), Oral, Daily losartan, 25 mg, Oral, BID Macrobid 100 mg Cap, 100 mg= 1 cap(s), Oral, BID meclizine 25 mg Tab, 25 mg= 1 tab(s), Oral, q4hr, PRN oxcarbazepine 300 mg Tab, 600 mg= 2 tab(s), Oral, Bedtime oxybutynin, 5 mg, Oral, Daily Pepcid 40 mg Tab, 40 mg= 1 tab(s), Oral, Once a day (at bedtime) potassium CITRATE 10 mEq ER Tab, 20 mEq= 2 tab(s), Oral, BID, 11 refills Prednisol 1% ophthalmic solution, 1 drop(s), Eye-Right, QID pregabalin 200 mg Cap, 200 mg= 1 cap(s), Oral, TID, 1 refills Pristiq 100 mg Tab-ER, 100 mg= 1 tab(s), Oral, Daily Seroquel, 100 mg, Oral, Once a day (at bedtime) Ultram 50 mg Tab, 50 mg= 1 tab(s), Oral, BID, PRN, Not taking Zofran, 4 mg, Oral, PRN Allergies Contrast Dye (throat swelling) cabbage (Vomit, Diarrhea) Social History Alcohol - Denies Alcohol Use, 08/08/2017 Never., 01/22/2024 Current, 02/15/2018 Current, 05/11/2017 Employment/School - Not employed or in school, 02/18/2020 Substance Abuse - Denies Substance Abuse, 08/08/2017 Never., 01/22/2024 Current, 02/15/2018 Current, 05/11/2017 Tobacco - Denies Tobacco Use, 08/08/2017 Never (less than 100 in lifetime), Denies Tobacco Use:., 01/22/2024 Family History Diabetes mellitus type 2: Father. Gout: Father. Heart failure: Father. Hypertension: Father. Primary malignant neoplasm of skin: Mother. Rheumatoid arthritis: Father. Stroke: Mother. Immunizations Vaccine Date Status Comments influenza virus vaccine, inactivated - Not Given Patient Refuses SARS-CoV-2 (COVID-19) mRNA BNT-162b2 vax 02/07/2021 Recorded SARS-CoV-2 (COV (more content not included)...[facility] Comment on above:Result Comment: Electronically Signed By: ADRIAN Sweet APRN, Aurora X\.tito\Date and Time Signed: 05/28/24 13:03 EDTNonvisit Note - OTon [id number] Note - OTNonvisit Note - OT Pt. cx d/t back pain.[facility] - PTon [id number] Note - PTNonvisit Note - PT Cancel due to back painNormHenry County HospitalNonvisit Note - OTon [id number] Note - OTNonvisit Note - OT Pt. cx d/t a .[facility]Non[facility] - PTon [id number] Note - PTNonvisit Note - PT Cancel due to a funeralNormHenry County HospitalNonvisit Note - OTon [id number] Note - OTNonvisit Note - OT Pt canceled this date due to medical reasons.[facility] Nonvisit Note - PTon [id number] Note - PTNonvisit Note - PT Pt canceled this date due to medical reasons.[facility] Nonvisit Note - OTon [id number] Note - OTNonvisit Note - OT pt will be out of town this week, cx all week.[facility] Nonvisit Note - PTon [id number] Note - PTNonvisit Note - PT Cancel due to out of townNormHenry County HospitalNonvisit Note - OTon [id number] Note - OTNonvisit Note - OT Pt. cx. d/t hazardous weather conditions.[facility] Nonvisit Note - PTon [id number] Note - PTNonvisit Note - PT Cancel due to weather.[facility] Urineon 03-28-2024 Bacteria identified Cx Nom (U)Microbiology PROCEDURE: Urine Culture [R1] SOURCE: U Cath BODY SITE: COLLECTED DATE/TIME: 03/24/2024 10:56 EST RECEIVED DATE/TIME: 03/24/2024 18:55 EST START DATE/TIME: 03/24/2024 18:55 EST FREE TEXT SOURCE: suprapubic Orzech FELT WASHING MACHINE TENDER, STUDENT FINANCE ADVISOR-C, Orzech FELT WASHING MACHINE TENDER, STUDENT FINANCE ADVISOR-C, Sarai X Sarai X FINAL REPORTS Final Report [] Verified Date/Time: 03/28/2024 10:02 EST 75,000 cfu/ml Methicillin-Resistant Staphylococcus aureus MRSA 50,000 cfu/ml Methicillin-Resistant Staphylococcus aureus MRSA #2 Different Biotype. 75,000 cfu/ml Enterococcus faecalis SUSCEPTIBILITY RESULTS LEGEND: S=Susceptible, N/R=Not Reported, Blank=Data not available, or drug not advisable or tested, I=Intermediate, ESBL=Extended spectrum beta-lactamase, R=Resistant, TFG=Thymidine-dependent strain, DANNY=Beta-lactamase positive, MARYAM=mcg/m;(mg/L), S*=Predicted susceptible interp, R*=Predicted resistant interp MRSA MRSA #2 Entfaeca Antibiotic MARYAM Dilutn MARYAM Interp MARYAM Dilutn MARYAM Interp MARYAM Dilutn MARYAM Interp Amoxicillin/ <=4/2 R* <=4/2 R* Clavulanate Ampicillin 8 R* >8 R* <=2 S Ampicillin/ <=8/4 R* <=8/4 R* Sulbactam Cefazolin <=8 R* <=8 R* Ceftaroline <=0.5 S <=0.5 S Ciprofloxacin <=1 S <=1 S <=1 S Daptomycin <=1 S <=1 S <=1 S Gentamicin <=4 S <=4 S Levofloxacin <=1 S <=1 S <=1 S Linezolid <=2 S <=2 S <=2 S Nitrofurantoin <=32 S <=32 S <=32 S Oxacillin >2 R >2 R Penicillin 8 R* >8 R* 2 S Rifampin <=1 S <=1 S >2 R Tetracycline <=4 S >8 R >8 R Trimethoprim/ <=0.5/9.5 S <=0.5/9.5 S Sulfa Vancomycin <=0.5 S 1 S 1 S Performing Locations R1: This test was performed at: [facility], [address] [place] [address], [phone]- , [place], HjzrmgZersfzSum[facility] Health [facility] CampusComment on above:Performed By: #### [id number] #### [facility] [address] [place] [id number] Office/Clinic Noteon [id number] Office/Clinic NoteUrology Office/Clinic Note HPI Staff 3 wk cath change. History of Present Illness I have reviewed and verified the staff HPI to be accurate for this encounter. Portions of this record may have been created with voice recognition artificial intelligence software, specifically [employer], [employer] and or [employer]. Substitutions may have occurred due to the inherent limitations of voice recognition and artificial intelligence software. Physical Exam General: Well developed, well nourished, in no acute distress. Assessment/Plan 1. UTI (urinary tract infection) (N39.0: Urinary tract infection, site not specified) Pt c/o bladder pain discomfort that has been worsening over the last week. She denies fever, chills, incontinence. She states that has also noticed a significant increase in her urine sediment. Advised on increasing fluid intake to keep SPT flushed. She is on K citrate and K phos to decreased potential for calcification. SPT that was removed today w/o evidence of calcification. UA from fresh cath w/ small leuks. Discussed w/ pt. She would prefer to start abx at this time as she has had increasing bladder discomfort. Increase fluid intake, avoid bladder irritants ER for fever, NV, severe flank pain, lack of urine output from SPT -UCX sent, contact pt if needed to change tx course based on susceptibilities -start keflex, rx sent to pharmacy. finish course unless instructed otherwise by our office 2. Hypotonic neurogenic bladder (N31.9: Neuromuscular dysfunction of bladder, unspecified) SPT exchanged in office today, see adhoc -RTO 3 weeks for SPT exchange Ordered: Urnls Dip Stick Auto w/o Microscopy POC 30301 Follow-up No qualifying data available Problem List/Past Medical History Ongoing Abnormality of [...] syndrome Historical Abdominal pressure Dehydration Procedure/Surgical History Denervation (12/02/2023), Chemodenervation (08/29/2023), Chemodenervation (05/09/2023), Trigger point (02/07/2023), Arthroscopy of knee (02/26/2020), Cystourethroscopy with dilation of urethral stricture (03/31/2018), Urodynamics (03/31/2018), Spinal cord stimulator implant (02/12/2018), left lumbar sympathetic plexus block (10/16/2017), Left sympathetic plexus block (07/24/2017), Arthroscopy of knee, Colonoscopy, EGD - Esophagogastroduodenoscopy, L salpingooopherectomy, Right Eye Tubal Shunt, s usman cord stimulator trial, Vaginal hysterectomy. Medications allopurinol, 100 mg, Oral, Daily Azopt 0.01 Susp-Opth, 1 drop(s), OPTH, QID Breo Ellipta 100 mcg-25 mcg inhalation powder, 1 puff(s), Inhalation, Daily cephalexin 500 mg Cap, 500 mg= 1 cap(s), Oral, BID clopidogrel 75 mg Tab, 75 mg= 1 tab(s), Oral, Daily diclofenac sodium 75 mg Oral EC Tab, 75 mg= 1 tab(s), Oral, BID K-Phos Original 500 mg oral tablet, 1 tab, Oral, BID, 11 refills Lasix 20 mg Tab, 20 mg= 1 tab(s), Oral, Daily Linzess 290 mcg oral capsule, 290 mcg= 1 cap(s), Oral, Daily losartan, 25 mg, Oral, BID meclizine 25 mg Tab, 25 mg= 1 tab(s), Oral, q4hr, PRN oxcarbazepine 300 mg Tab, 600 mg= 2 tab(s), Oral, Bedtime oxybutynin, 5 mg, Oral, Daily Pepcid 40 mg Tab, 40 mg= 1 tab(s), Oral, Once a day (at bedtime) potassium CITRATE 10 mEq ER Tab, 20 mEq= 2 tab(s), Oral, BID, 11 refills Prednisol 1% ophthalmic solution, 1 drop(s), Eye-Right, QID pregabalin 200 mg Cap, 200 mg= 1 cap(s), Oral, TID, 1 refills Pristiq 100 mg Tab-ER, 100 mg= 1 tab(s), Oral, Daily Seroquel, 100 mg, Oral, Once a day (at bedtime) Ultram 50 mg Tab, 50 mg= 1 tab(s), Oral, BID, PRN, Not taking Zofran, 4 mg, Oral, PRN Allergies Contrast Dye (throat swelling) cabbage (Vomit, Diarrhea) Social History Alcohol - Denies Alcohol Use, 08/08/2017 Never., 01/22/2024 Current, 02/15/2018 Current, 05/11/2017 Employment/School - Not employed or in school, 02/18/2020 Substance Abuse - Denies Substance Abuse, 08/08/2017 Never., 01/22/2024 Current, 02/15/2018 Current, 05/11/2017 Tobacco - Denies Tobacco Use, 08/08/2017 Never (less than 100 in lifetime), Denies Tobacco Use:., 01/22/2024 Family History Diabetes mellitus type 2: Father. Gout: Father. Heart failure: Father. Hypertension: Father. Primary malignant neoplasm of skin: Mother. Rheumatoid arthritis: Father. Stroke: Mother. Im (more content not included)...[facility]Comment on above:Result Comment: Electronically Signed By: ADRIAN Sweet APRN, Aurora X\.tito\Date and Time Signed: 03/26/24 13:15 ESTOperative Reporton 03-24-2024 Operative ReportOperative Report History, physical examination, and personal review of pertinent imaging results indicate a diagnosis of: -Right shoulder contracture -Right shoulder pain -Multiple sclerosis Plan: -Right upper extremity/trunk was injected today and 5 total muscle groups with Botox, 400 units, procedure described below. 3 right upper extremity muscles and 2 trunk muscles on the right. Discussed that we can follow-up in 3 months or sooner if needed we can also perform right shoulder intra-articular corticosteroid injection as long as they provide effective relief for her, we will also continue her on Lyrica 200 mg 3 times daily as this is effective for her as well An in office procedure was performed today. Risks and benefits were discussed at length, verbal consent was obtained from the patient. The areawas prepped under strict aseptic technique using chloraprep solution, sterile gloves were utilized. Location: Right upper extremity, multiple muscle groups. Ultrasound was utilized to identify these muscles Anatomic Landmarks: Pectoralis muscle as well as the FCR, FDP, and right deltoid as well as right latissimus dorsi. Stimuplex needle was utilized for visualization under ultrasound. Medications: 400 units of Botox was diluted into 8 cc of normal saline, 3 cc of 2% lidocaine was injected at the needle insertion sites. Procedure: Patient was identified, procedural sites were identified and prior notes were reviewed prior to performing this. We injected 400 units of Botox total after cleaning the skin and identifying muscle groups using sterile equipment and an ultrasound device. Before injection of any Botox, aspiration was performed and did not reveal any vascular uptake at each site. The sites were identified as below: 1. 150u RUE pectoralis, divided between 3 sites 2. 50u RUE flexor carpi radialis, 1 site 3. 50u RUE flexor digitorum profundus, 1 site 4. 100u RUE deltoid, 2 sites 5. 50u RUE latissimus dorsi, 1 site the patient tolerated the procedure well without complication and will follow up regarding changes after procedure. Patient observed post-procedure without further issue or new complaints. Improvement in pain was noted. Patient was counseled on the above diagnosis and treatment, all questions were answered and patientagrees to adhere to the plan above. Risk and benefits of appropriate procedures and medications were reviewed as well with patient, who voiced understanding and agreeance. Patient was counseled on appropriate use of opioids if prescribed or renewed today and naloxone was offered to patient if opioids were prescribed or maintained at this visit. PHQ-2 scoring reviewed with patient and discussed seeking treatment for depression or mood disorder as appropriate. Patient was counseled on smoking cessation and/or [...] call with any questions or concerns that arise.[facility] CampusComment on above:Result Comment: Electronically Signed By: Camilo Deras DO\Date and Time Signed: 03/24/24 15:08 ESTNonvisit Note - OTon [id number] Note - OTNonvisit Note - OT Pt. cx d/t hazardous weather conditions.[facility] Nonvisit Note - PTon [id number] Note - PTNonvisit Note - PT Cancel due to weatherNormHenry County HospitalNonvisit Note - OTon [id number] Note - OTNonvisit Note - OT Pt. cx, d/t car / transportation problems.[facility] Nonvisit Note - PTon [id number] Note - PTNonvisit Note - PT Cancel due to car troubleNoMartin Memorial HospitalNonvisit Note - OTon [id number] Note - OTNonvisit Note - OT Pt. cx d/t no transportation.[facility]Nonvisit Note - PT on [id number] Note - PTNonvisit Note - PT Cancel due to no transportation.[facility]Nonvisit Note - OTon [id number] Note - OTNonvisit Note - OT Pt. cx, ill.[facility] CampusNonvisit Note - PTon 02-20-2024 Nonvisit Note - PTNonvisit Note - PT Cancel due to illnessNormHenry County HospitalAmbulatory Visit Summaryon [id number] Visit SummaryAmbulatory Visit Summary JESSICA GUTIERREZ :1975 Visit Date:02/10/2024 Ambulatory Visit Instructions Your Care Team Attending Physician - MARILIA CR PA-C Primary Care Physician - Hunter Quinteros MD This Is Your Medications List allopurinol brinzolamide ophthalmic (Azopt 0.01 Susp-Opth) clopidogrel (clopidogrel 75 mg Tab) desvenlafaxine (Pristiq 100 mg Tab-ER) diclofenac (diclofenac sodium 75 mg Oral EC Tab) dicyclomine (dicyclomine 20 mg Tab) famotidine (Pepcid 40 mg Tab) fluticasone-vilanterol (Breo Ellipta 100 mcg-25 mcg inhalation powder) furosemide (Lasix 20 mg Tab) linaclotide (Linzess 290 mcg oral capsule) losartan meclizine (meclizine 25 mg Tab) metoclopramide (metoclopramide 10 mg Tab) ondansetron (Zofran) oxcarbazepine (oxcarbazepine 300 mg Tab) oxybutynin potassium acid phosphate (K-Phos Original 500 mg oral tablet) potassium citrate (potassium CITRATE 10 mEq ER Tab) prednisoLONE ophthalmic (Prednisol 1% ophthalmic solution) pregabalin (pregabalin 200 mg Cap) quetiapine (Seroquel) tramadol (Ultram 50 mg Tab) Procedures Performed Chemodenervation (08/29/2023), Chemodenervation (05/09/2023), Trigger point (02/07/2023), Arthroscopy of knee (02/26/2020), Cystourethroscopy with dilation of urethral stricture (03/31/2018), Urodynamics (03/31/2018), Spinal cord stimulator implant (02/12/2018), left lumbar sympathetic plexus block (10/16/2017), Left sympathetic plexus block (07/24/2017), Arthroscopy of knee, Colonoscopy, EGD - Esophagogastroduodenoscopy, L salpingooopherectomy, Right Eye Tubal Shunt, spinal cord stimulator trial, Vaginal hysterectomy. What to do next Scheduled Follow-Up Appointments 2023 8:30 AM EST With: Where: [facility] 2023 10:00 AM EST With: Where: [facility] Saturday 8:45 AM EST With: Where: [facility] Saturday 10:00 AM EST With: Where: [facility] 2024 9:00 AM EST With: Where: [facility] 2024 10:00 AM EST With: Where: [facility] Saturday 8:45 AM EST With: Where: [facility] Saturday 9:45 AM EST With: Where: [facility] 2024 8:30 AM EST With: Where: [facility] 2024 9:30 AM EST With: Where: [facility] Saturday 8:45 AM EST With: Where: [facility] Saturday 9:45 AM EST With: Where: [facility] Therapy Saturday 10:20 AM EST With: ADRIAN Sweet APRN, [place] X Where: [facility] [address] [place] [address] 2024 8:30 AM EST With: Where: [facility] 2024 9:30 AM EST With: Where: [facility] Saturday 8:45 AM EST With: Where: [facility] Saturday 9:45 AM EST With: Where: [facility] 2024 8:45 AM EST With: Where: [facility] 2024 10:00 AM EST With: Where: [facility] Saturday 8:45 AM EST With: Where: [facility] Saturday 9:45 AM EST With: Where: [facility] 2024 9:00 AM EST With: Where: [facility] 2024 10:00 AM EST With: Where: [facility] Saturday 8:45 AM EST With: Where: [facility] Saturday 9:45 AM EST With: Where: [facility] Saturday 10:20 AM EST With: ADRIAN Sweet APRN, [place] X Where: [facility] [address] [place] [place] [address] 2024 8:15 AM EST With: Where: [facility] 2024 9:15 AM EST With: Where: [facility] Saturday 8:45 AM EST With: Where: [facility] Saturday 9:45 AM EST With: Where: [facility] 2024 8:30 AM EST With: Where: [facility] 2024 9:30 AM EST With: Where: [facility] Saturday 8:45 AM EST With: Where: [facility] Saturday 9:45 AM EST With: Where: [facility] 2024 8:30 AM EST With: Where: [facility] 2024 9:30 AM EST With: Where: [facility] Saturday 8:45 AM EST With: Where: [facility] Saturday 9:45 AM EST With: Where: [facility] Saturday 10:20 AM EST With: ADRIAN Sweet APRN, [place]ai X Where: [facility] [place] [address] [address] (more content not included)...[facility] - OTon [id number] Note - OTNonvisit Note - OT Cxl'd at window by patient. Going to [place] to see son. (Cxl 01/25 - 01/31) [facility] - PTon [id number] Note - PTNonvisit Note - PT Per the senior front end engineer, Cxl'd at window by patient. Going to [place] to see son. (Cxl 01/25 - 01/31) [facility] - OTon [id number] Note - OTNonvisit Note - OT Pt. cancelled today's appointment as she is ill with Covid.[facility] - PTon [id number] Note - PTNonvisit Note - PT Cancel due to illness.[facility] CampusAmbulatory Visit Summary on [id number] Visit SummaryAmbulatory Visit Summary JESSICA GUTIERREZ :1975 Visit Date:01/22/2024 Ambulatory Visit Instructions Your Diagnosis Hypotonic neurogenic bladder Your Care Team Attending Physician - MARILIA CR PA-C Primary Care Physician - Hunter Quinteros MD This Is Your Medications List allopurinol brinzolamide ophthalmic (Azopt 0.01 Susp-Opth) clopidogrel (clopidogrel 75 mg Tab) desvenlafaxine (Pristiq 100 mg Tab-ER) diclofenac (diclofenac sodium 75 mg Oral EC Tab) dicyclomine (dicyclomine 20 mg Tab) famotidine (Pepcid 40 mg Tab) fluticasone-vilanterol (Breo Ellipta 100 mcg-25 mcg inhalation powder) furosemide (Lasix 20 mg Tab) linaclotide (Linzess 290 mcg oral capsule) losartan meclizine (meclizine 25 mg Tab) metoclopramide (metoclopramide 10 mg Tab) ondansetron (Zofran) oxcarbazepine (oxcarbazepine 300 mg Tab) oxybutynin potassium acid phosphate (K-Phos Original 500 mg oral tablet) potassium citrate (potassium CITRATE 10 mEq ER Tab) prednisoLONE ophthalmic (Prednisol 1% ophthalmic solution) pregabalin (pregabalin 200 mg Cap) quetiapine (Seroquel) tramadol (Ultram 50 mg Tab) Procedures Performed Chemodenervation (08/29/2023), Chemodenervation (05/09/2023), Trigger point (02/07/2023), Arthroscopy of knee (02/26/2020), Cystourethroscopy with dilation of urethral stricture (03/31/2018), Urodynamics (03/31/2018), Spinal cord stimulator implant (02/12/2018), left lumbar sympathetic plexus block (10/16/2017), Left sympathetic plexus block (07/24/2017), Arthroscopy of knee, Colonoscopy, EGD - Esophagogastroduodenoscopy, L salpingooopherectomy, Right Eye Tubal Shunt, spinal cord stimulator trial, Vaginal hysterectomy. What to do next Scheduled Follow-Up Appointments 2023 8:30 AM EST Where: [facility] 2023 9:30 AM EST Where: [facility] Saturday 8:45 AM EST Where: [facility] Saturday 10:00 AM EST Where: [facility] 2023 8:30 AM EST Where: [facility] 2023 9:30 AM EST Where: [facility] Saturday 8:45 AM EST Where: [facility] Saturday 10:00 AM EST Where: [facility] Saturday 11:30 AM EST Where: [facility] [address] [place] [address]- 2023 8:30 AM EST Where: [facility] 2023 10:00 AM EST Where: [facility] Saturday 8:45 AM EST Where: [facility] Saturday 10:00 AM EST Where: [facility] You Need to Schedule the Following Appointments Follow Up with MARILIA CR PA-C, URL When: Where: [address] [place] [id number] Medications What How Much When Why Instructions Unchanged allopurinol 100 Milligram By Mouth Every day Unchanged brinzolamide ophthalmic (Azopt 0.01 Susp-Opth) 1 Drops Ophthalmic 4 times a day right eye Unchanged clopidogrel (clopidogrel 75 mg Tab) 1 Tablets By Mouth Every day Unchanged desvenlafaxine (Pristiq 100 mg Tab-ER) 1 Tablets By Mouth Every day Unchanged diclofenac (diclofenac sodium 75 mg Oral EC Tab) 1 Tablets By Mouth 2 times a day Unchanged dicyclomine (dicyclomine 20 mg Tab) 1 Tablets By Mouth 3 times a day Unchanged famotidine (Pepcid 40 mg Tab) 1 Tablets By Mouth Once a day (at bedtime) Unchanged fluticasone-vilanterol (Breo Ellipta 100 mcg-25 mcg inhalation powder) 1 Puffs InhalationEvery day 30 dose unit Unchanged furosemide (Lasix 20 mg Tab) 1 Tablets By Mouth Every day Unchanged linaclotide (Linzess 290 mcg oral capsule) 1 Capsules By Mouth Every day Unchanged losartan 25 Milligram By Mouth 2 times a day Unchanged meclizine (meclizine 25 mg Tab) 1 Tablets By Mouth Every 4 hours as needed for Dizziness Unchanged metoclopramide (metoclopramide 10 mg Tab) 1 Tablets By Mouth Four times a day (before meals and at bedtime) Unchanged ondansetron (Zofran) 4 Milligram By Mouth As needed for as needed for nausea/vomiting Unchanged oxcarbazepine (oxcarbazepine 300 mg Tab) 2 Tablets By Mouth At bedtime Unchanged oxybutynin 5 Milligram By Mouth Every day Unchanged potassium acid phosphate (K-Phos Original 500 mg oral tablet) 1 tab By Mouth 2 times a day Unchanged potassium citrate (potassium CITRATE 10 mEq ER Tab) 2 Tablets By Mouth 2 times a day Unchanged prednisoLONE ophthalmic (Prednisol 1% ophthalmic solution) 1 Drops Right eye 4 times a day Unchanged pregabalin (pregabalin 200 mg Cap) 1 Capsules By Mouth 3 times a day 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 cx, ill.[facility] - PTon 01-20-2024 Nonvisit Note - PTNonvisit Note - PT Pt canceled due to a coldNormalFisher [facility] CenterNonvisit Note - OTon [id number] Note - OTNonvisit Note - OT Pt. cancelled today's session as she is ill.[facility] Nonvisit Note - PTon [id number] Note - PTNonvisit Note - PT Pt cancelled this date due to medical concern.[facility] CULTURE URINEon [id number] URINEIsolate 1 Proteus mirabilis >100,000 cfu/mL of Isolate [...] <=0.12 S F Nitrofurantoin 128 R F Trimethoprim/Sulfamethoxazole >=320 R F ORGANISM 2 Citrobacter freundii ANTIBIOTIC M.I.C RX STATUS Piperacillin/Tazobactam <=4 S F Cefazolin >=64 R F Ceftazidime <=1 S F Ceftriaxone <=1 S F Ertapenem <=0.5 S F Imipenem <=0.25 S F Amikacin <=2 S F Gentamicin <=1 S F Tobramycin <=1 S F Ciprofloxacin <=0.25 S F Levofloxacin 0.5 S F Nitrofurantoin <=16 S F Trimethoprim/Sulfamethoxazole <=20 S FNormalThe [facility] MiamisburgComment on above:Performed By: #### URCX #### [facility] [address] [place] [address] Dr. Kevin Childress AUTO DIFFon 35-68-9177GMVO #0.1 103/ulNormal0.0-0.1The [facility] MiamisburgComment on above:Performed By: #### CBC #### [facility] [address] [place] [address] Dr. Kevin SebastianBasophils/100 WBC (Bld)0.7 %Normal0.2-2.0The [facility] Comment on above:Performed By: #### CBC #### [facility] [address] [place] [address] Dr. Kevin Jennings #0.1 103/ulNormal0.0-0.7The [facility] MiamisburgComment on above: Performed By: #### CBC #### [facility] [address] [place] [address] Dr. Kevin Cervantesosinophils/100 WBC (Bld)0.7 %Critically low0.9-7.0The [facility] MiamisburgComment on above:Performed By: #### CBC #### [facility] [address] [place] [address] Dr. Kevin Cervantesrythrocyte distribution width (RBC) [Ratio]17.2 %Critically high 11.0-15.0The [facility]amisburgComment on above:Performed By: #### CBC #### [facility] [address] [place] [address] Dr. Kevin SebastianHematocrit (Bld) [Volume fraction]34.5 %Critically low36.0-48.0 The [facility]amisburgComment on above:Performed By: #### CBC #### [facility] [address] [place] [address] Dr. Kevin SebastianHemoglobin (Bld) [Mass/Vol]10.8 g/dLCritically low12.0-16.0The [facility]burgComment on above:Performed By: #### CBC #### [facility] [address] [place] [address] Dr. Kevin Cooper #0.03 10e3/ulNormal0.00-0.03The [facility]burgComment on above:Performed By: #### CBC #### [facility] [address] [place] [address] Dr. Kevin Cooper %0.3 %Normal0.0-0.5The [facility]burgComment on above: Performed By: #### CBC #### [facility] [address] [place] [address] Dr. Kevin Clayton #2.3 103/ulNormal1.2-3.8ThCleveland Clinic Lutheran HospitalComment on above:Performed By: #### CBC #### [facility] [address] [place] [address] Dr. Kevin Zambranomphocytes/100 WBC (Bld)22.5 %Fwejsv24.5-60.0[facility] CampusComment on above:Performed By: #### CBC #### [facility] [address] [place] [address] Dr. Kevin Lester DIFF REQNONormalThe [facility]amisburgComment on above: Performed By: #### CBC #### [facility] [address] [place] [address] Dr. Kevin Hanks (RBC) [Entitic mass]24.2 pgCritically low26.7-34.0[facility] CampusComment on above:Performed By: #### CBC #### [facility] [address] [place] [address] Dr. Kevin Hanks (RBC) [Mass/Vol]31.3 g/yMRigdwi69.9-35.2The [facility]amisburgComment on above:Performed By: #### CBC #### [facility] [address] [place] [address] Dr. Kevin Mahoney (RBC) [Entitic vol]77.4 fLCritically low81.0-99.0The [facility]burgComment on above:Performed By: #### CBC #### [facility] [address] [place] [address] Dr. Kevin Arnold #1.0 103/ulCritically high0.3-0.8ThCleveland Clinic Lutheran Hospital Comment on above:Performed By: #### CBC #### [facility] [address] [place] [address] Dr. Kevin Rolonocytes/100 WBC (Bld)9.5 %Normal1.7-12.0[facility] Comment on above:Performed By: #### CBC #### [facility] [address] [place] [address] Dr. Yilan ChangNEUT #6.7 103/ulCritically high1.4-6.5The [facility] Comment on above:Performed By: #### CBC #### [facility] [address] [place] [address] Dr. Kevin Stearnsutrophils/100 WBC (Bld)66.3 %Somfza28.0-75.0The [facility]burgComment on above:Performed By: #### CBC #### [facility] [address] [place] [address] Dr. Kevin Chew mean volume (Bld) [Entitic vol]11.1 fLNormal9.5-13.5The [facility]burgComment on above:Performed By: #### CBC #### [facility] [address] [place] [address] Dr. Kevin SebastianPLT265 103/drOghfyb053-284Nef [facility]burgComment on above: Performed By: #### CBC #### [facility] [address] [place] [address] Dr. Kevin SebastianRBC4.46 106/ulNormal4.20-5.40The [facility]amisburgComment on above:Performed By: #### CBC #### [facility] [address] [place] [address] Dr. Kevin SebastianWBC10.0 103/ulNormal4.0-11.0The [facility]amisburgComment on above:Performed By: #### CBC #### [facility] [address] [place] [address] Dr. Brown ChangEBelkis URINE PROFILEon 36-81-2853Igskchuss Ql (U)NegativeNormal NEGATIVEThe [facility] MiamisburgComment on above:Performed By: #### CATHERINE UMICRO #### [facility] [address] [place] [address] Dr. Kevin Clemens (U)CLEARNormalCLEARThe [facility] MiamisburgComment on above: Performed By: #### ERUBelkis UMICRO #### [facility] [address] [place] [address] Dr. Yilan ChangColor (U)LT. YELLOWNormalYELLOWFirelands Regional Medical Center South CampusComment on above:Performed By: #### ROMEOR, UMICRO #### [facility] [address] [place] [address] Dr. Kevin Ho micrscopic examination will be performed if indicated. NormalThe Clifford HospitalComment on above:Performed By: #### ERUR, UMICRO #### [facility] [address] [place] [address] Dr. Kevin SebastianGlucose Ql (U)NegativeNormalNEGATIVEFirelands Regional Medical Center South CampusComment on above:Performed By: #### ERUR, UMICRO #### [facility] [address] [place] [address] Dr. Kevin SebastianHemoglobin Ql (U)TRACE-INTACTAbnormalNEGATIVEFirelands Regional Medical Center South CampusComment on above:Performed By: #### CATHERINE, UMICRO #### [facility] [address] [place] [address] Dr. Kevin SebastianKetones Ql (U)NegativeNormalNEGATIVEFirelands Regional Medical Center South CampusComment on above:Performed By: #### CATHERINE, UMICRO #### [facility] [address] [place] [address] Dr. Kevin SebastianLEUKOCYTESSMALLAbnormalNEGATIVEFirelands Regional Medical Center South CampusComment on above:Performed By: #### ERUBelkis, UMICRO #### [facility] [address] [place] [address] Dr. Kevin SebastianNitrite Ql (U)NegativeNormalNEGATIVEFirelands Regional Medical Center South CampusComment on above:Performed By: #### ERUR, UMICRO #### [facility] [address] [place] [address] Dr. Kevin SebastianpH (U)7.0 [pH]Normal5-9[facility] CampusComment on above: Performed By: #### ERUR, UMICRO #### [facility] [address] [place] [address] Dr. Kevin SebasitanSPEC GRAVITY1.034Ljeukm2.005-<=1.025Fire[facility] South CampusComment on above:Performed By: #### JOMAR ALEXANDERICRO #### [facility] [address] [place] [address] Dr. Kevin Mast PROTEINNegativeNormalNEGATIVE/ TRACEThe [facility] Comment on above:Performed By: #### EMILY ALEXANDERRO #### [facility] [address] [place] [address] Dr. Kevin Barbosa MICRO INDINDICATEDNormalThe [facility] MiamisburgComment on above: Performed By: #### JOMAR ALEXANDERICRO #### [facility] [address] [place] [address] Dr. Kevin Andrewsbilinogen Qn (U)0.2 {Gianni'U}/dLNormal0.2 - 1.0[facility] South CampusComment on above:Performed By: #### EMILY ALEXANDERRO #### [facility] [address] [place] [address] Dr. Kevin AtkinsF CHEM 8 (BAS METB)on 85-24-5867Lprge gap [Moles/Vol]13.7 mmol/LNormalFirelands Regional Medical Center South CampusComment on above:Performed By: #### BMP #### [facility] [address] [place] [address] Dr. Kevin SebastianCalcium [Mass/Vol]9.3 mg/dLNormal8.5-10.1[facility] Comment on above:Performed By: #### BMP #### [facility] [address] [place] [address] Dr. Kevin SebastianChloride [Moles/Vol]102 mmol/DWpdxuu85-173PxjFirelands Regional Medical Center South Campus Comment on above:Performed By: #### BMP #### [facility] [address] [place] [address] Dr. Kevin SebastianCO2 [Moles/Vol]28.1 mmol/XLnukia71.0-32.0[facility] Comment on above:Performed By: #### BMP #### [facility] [address] [place] [address] Dr. Kevin SebastianCreatinine [Mass/Vol]0.91 mg/dLNormal0.55-1.02The [facility]amisburgComment on above:Performed By: #### BMP #### [facility] [address] [place] [address] Dr. Kevin CervantesGFR-AF YEMENI>60Normal>=60The [facility]amisburgComment on above:Performed By: #### BMP #### [facility] [address] [place] [address] [address] Kevin CervantesGFR-NON AF YEMENI>60Normal>=60The [facility]burgComment on above:Performed By: #### BMP #### [facility] [address] [place] [address] Dr. Kevin SebastianGlucose [Mass/Vol]105 mg/tXXiijgl09-313Uoa [facility] Comment on above:Performed By: #### BMP #### [facility] [address] [place] [address] Dr. Kevin SebastianPotassium [Moles/Vol]3.8 mmol/LNormal3.5-5.1The [facility] Comment on above:Performed By: #### BMP #### [facility] [address] [place] [address] Dr. Kevin Leium [Moles/Vol]140 mmol/BTxssvs696-821RquFirelands Regional Medical Center South Campus Comment on above:Performed By: #### BMP #### [facility] [address] [address] [address] Kevin SebastianUrea nitrogen [Mass/Vol]16.0 mg/dLNormal7.0-18.0The [facility]amisburgComment on above:Performed By: #### BMP #### [facility] [address] [place] [address] Dr. Kevin Hernandez nitrogen/Creatinine [Mass ratio]17.6 mg/mgNormalThe [facility] MiamisburgComment on above:Performed By: #### BMP #### [facility] [address] [place] [address] Dr. Kevin Benavides MICROSCOPIC ONLYon [id number]R SEEN The [facility]burgComascension [facility] on above:Performed By: #### ERUR, UMICRO #### [facility] [address] [place] [address] Dr. Kevin Hale identified Cx Nom (U)INDICATEDNoalThe [facility]burgComasc[facility] on above:Performed By: #### ERUR, UMICRO #### [facility] [address] [place] [address] Dr. Kevin Mcdermott SEENNormalNONE SEENOhioHealth Doctors Hospital on above:Performed By: #### ERUR, UMICRO #### [facility] [address] [place] [address] Dr. Kevin Panda LM Nom (Urine sed)NONE SEENNormalNONE SEENOhioHealth Doctors Hospital on above:Performed By: #### ERUR, UMICRO #### [facility] [address] [place] [address] Dr. Kevin Sheldonthelial cells LM Ql (Urine sed)FEWAbnormalNONE SEEN /RAREThe [facility]burgComasc[facility] on above:Performed By: #### CATHERINE, UMICRO #### [facility] [address] [place] [address] Dr. Kevin Loco SEENNormalNONE SEENOhioHealth Doctors Hospital on above:Performed By: #### CATHERINE, UMICRO #### [facility] [address] [place] [address] Dr. Kevin SebastianKgjfgYNZ1-7Kocldhpm8-4Hju [facility] on above:Performed By: #### ERUR, UMICRO #### [facility] [address] [place] [address] Dr. Kevin SebastianWBC5-10AbnormalNONE SEENOhioHealth Doctors Hospital on above: Performed By: #### ERUR, UMICRO #### [facility] [address] [place] [address] Dr. Kevin SebastianActivated partial thromboplastin time (aPTT) in platelet poor plasma by coagulation aOrdered By: Yaakov Greenwood on 44-67-1638dRCM Coag (PPP) [Time]28.8 s25.1-36.5FACMC Healthcare System GlenbeighBasic Metabolic Panelon 30-25-4581Fgqwe gap [Moles/Vol]17.0 mmol/LHigh6.0-15.0[facility] CenterComment on above:Performed By: #### PT, PTT, CBC, BMP #### [facility] [address] [place] [address] USACalcium [Mass/Vol]9.0 mg/dLNormal8.6-10.3FACMC Healthcare System GlenbeighComment on above:Result Comment: PERFORMED BY: [place] [address] PATHOLOGIST CUSTOMER SERVICE TECHNICIAN REBEKAH HENRY M.D.Performed By: #### PT, PTT, CBC, BMP #### [place] [address] USAChloride [Moles/Vol]97 mmol/BUog55-741RfvmjvcvtWexner Medical CenterComment on above:Performed By: #### PT, PTT, CBC, BMP #### [place] [address] USACO2 [Moles/Vol]27.1 mmol/NJhysll95.0-31.0[facility] CenterComment on above:Performed By: #### PT, PTT, CBC, BMP #### [facility] [address] [place] [address] USACreatinine [Mass/Vol]0.90 mg/dLNormal0.60-1.20[facility] CenterComment on above:Performed By: #### PT, PTT, CBC, BMP #### [facility] [address] [place] [address] USAGFR/1.73 sq M.predicted MDRD (S/P/Bld) [Vol rate/Area] mL/min/{1.73_m2}NormalWexner Medical CenterComment on above: Performed By: #### PT, PTT, CBC, BMP #### [address] [place] [address] USAGlucose [Mass/Vol]98 mg/nJElafze79-873TvvdzxlnvWexner Medical CenterComment on above:Result Comment: Random Glucose Reference Range is dependent on time and content of last meal. Glucose of more than 200 mg/dL in a nonstressed, ambulatory subject supports the diagnosis of Diabetes Mellitus. ADA recommended reference rangePerformed By: #### PT, PTT, CBC, BMP #### [facility] [address] [place] [address] USAPotassium [Moles/Vol]4.1 mmol/LNormal3.5-5.1FACMC Healthcare System GlenbeighComment on above:Performed By: #### PT, PTT, CBC, BMP #### [facility] [address] [place] [address] USASodium [Moles/Vol]137 mmol/AOjuhxy382-829NnlgnukmyWexner Medical CenterComment on above:Performed By: #### PT, PTT, CBC, BMP #### [facility] [address] [place] [address] USAUrea nitrogen [Mass/Vol]17 mg/dLNormal7-25W[facility]ner Medical CenterComment on above:Performed By: #### PT, PTT, CBC, BMP #### [place] [address] USABasophils Auto (Bld) [#/Vol]Ordered By: Yaakov Greenwood on 00-85-9216Ghqcgzmlx (Bld) [#/Vol]0.1 10*3/uL0.0-0.2FACMC Healthcare System GlenbeighBasophils/100 WBC Auto (Bld)Ordered By: Yaakov Greenwood on 06-19-2022 Basophils/100 WBC (Bld)0.7 %.Wexner Medical CenterCalcium [Mass/volume] in Serum or PlasmaOrdered By: Yaakov Greenwood on 38-78-4183Aidpmsw [Mass/Vol]9.0 mg/dL8.6-10.3FACMC Healthcare System GlenbeighCarbon dioxide, total [Moles/volume] in Serum or PlasmaOrdered By: Yaakov Greenwood on 92-06-4595JG5 [Moles/Vol]27.1 mmol/L21.0-31.0W[facility]ner Medical CenterChloride [Moles/volume] in Serum or PlasmaOrdered By: Yaakov Greenwood on 49-87-4690Nppzymyd [Moles/Vol]97 mmol/S77-439LqglychnoWexner Medical CenterComplete Blood Count Auto Diffon 02-51-1326Fewvwpltv (Bld) [#/Vol]0.1 10*3/uLNormal0.0-0.2FACMC Healthcare System GlenbeighComment on above:Result Comment: PERFORMED BY: [place] [address] PATHOLOGIST CUSTOMER SERVICE TECHNICIAN REBEKAH HENRY M.D.Performed By: #### PT, PTT, CBC, BMP #### [facility] [address] [place] [address] USABasophils/100 WBC (Bld)0.7 %Normal.[facility]exner Medical CenterComment on above:Performed By: #### PT, PTT, CBC, BMP #### [facility] [address] [place] [address] USAEosinophils (Bld) [#/Vol]0.1 10*3/uLNormal0.0-0.45 [facility] Medical CenterComment on above:Performed By: #### PT, PTT, CBC, BMP #### [facility] [address] [place] [address] USAEosinophils/100 WBC (Bld)1.2 %Normal.Wexner Medical CenterComment on above:Performed By: #### PT, PTT, CBC, BMP #### [facility] [address] [place] [address] USAErythrocyte distribution width (RBC) [Ratio]17.7 %High 11.9-15.3FACMC Healthcare System GlenbeighComment on above:Performed By: #### PT, PTT, CBC, BMP #### [facility] [address] [place] [address] USAHematocrit (Bld) [Volume fraction]34.7 %Boimpy38.0-46.4 [facility]ner Medical CenterComment on above:Performed By: #### PT, PTT, CBC, BMP #### [place] [address] USAHemoglobin (Bld) [Mass/Vol]11.0 g/dLLow11.8-15.4FACMC Healthcare System GlenbeighComment on above:Performed By: #### PT, PTT, CBC, BMP #### [place] [address] USALymphocytes (Bld) [#/Vol]2.6 10*3/uLNormal1.00-4.8 [facility] Medical CenterComment on above:Performed By: #### PT, PTT, CBC, BMP #### [place] [address] USALymphocytes/100 WBC (Bld)26.8 %Normal.Wexner Medical CenterComment on above:Performed By: #### PT, PTT, CBC, BMP #### [place] [address] USAMCH (RBC) [Entitic mass]24.2 pgLow24.7-34.3FACMC Healthcare System GlenbeighComment on above:Performed By: #### PT, PTT, CBC, BMP #### [place] [address] USAMCV (RBC) [Entitic vol]76.8 oECrl94-865DwcuodqacWexner Medical CenterComment on above:Performed By: #### PT, PTT, CBC, BMP #### [place] [address] USAMean Corpuscular HGB Conc31.6 g/dLLow32.0-35.0Wexner Medical CenterComment on above:Performed By: #### PT, PTT, CBC, BMP #### [place] [address] USAMonocytes (Bld) [#/Vol]0.6 10*3/uLNormal0.0-0.8W[facility]ner Medical CenterComment on above:Performed By: #### PT, PTT, CBC, BMP #### [facility] [address] [place] [address] USAMonocytes/100 WBC (Bld)6.1 %Normal.Wexner Medical CenterComment on above:Performed By: #### PT, PTT, CBC, BMP #### [facility] [address] [place] [address] USANeutrophils (Bld) [#/Vol]6.4 10*3/uLNormal1.8-7.7FACMC Healthcare System GlenbeighComment on above:Performed By: #### PT, PTT, CBC, BMP #### [facility] [address] [place] [address] USANeutrophils/100 WBC (Bld)65.2 %Normal.[facility]exner Medical CenterComment on above:Performed By: #### PT, PTT, CBC, BMP #### [facility] [address] [place] [address] USANRBC%0.1 /100{WBC}Normal0-0.5FACMC Healthcare System GlenbeighComment on above:Performed By: #### PT, PTT, CBC, BMP #### [facility] [address] [place] [address] USAPlatelet mean volume (Bld) [Entitic vol]9.5 fLNormal 6.3-10.7FACMC Healthcare System GlenbeighComascension borgess allegan hospital on above:Performed By: #### PT, PTT, CBC, BMP #### [place] [address] USAPlatelets (Bld) [#/Vol]242 10*3/uEBllmwd189-054KtfujgcrxWexner Medical CenterComascension borgess allegan hospital on above:Performed By: #### PT, PTT, CBC, BMP #### [place] [address] USARBC (Bld) [#/Vol]4.53 10*6/uLNormal3.60-5.00Wexner Medical CenterComascension borgess allegan hospital on above:Performed By: #### PT, PTT, CBC, BMP #### [place] [address] USAWBC (Bld) [#/Vol]9.9 10*3/uLNormal3.8-11.6FACMC Healthcare System GlenbeighComment on above:Performed By: #### PT, PTT, CBC, BMP #### [facility] [address] [place] [address] USACreatinine [Mass/volume] in Serum or PlasmaOrdered By: Yaakov Greenwood on 20-48-8986Iogzcwrizg [Mass/Vol]0.90 mg/dL0.60-1.20Wexner Medical CenterECG 12 lead ECGon 58-29-7443HSR 12 lead ECGDI[facility] Main [facility] [address] [place] [address] Electrocardiograph Report Signed Patient: Jessica Gutierrez MR#: [id number] 44 : 1975 Acct:[id number] Age/Sex: 47 / F ADM Date: 06/19/22 Loc: Room: Type: [facility] Attending Dr: Yaakov Greenwood MD Ordering Provider: [...] previous ECGs available Confirmed by SHANTANU ROSS [facility] ([id number]) on 06/19/2022 3:55:23 PM Referred By: CHERELLE Electronically Signed By:TOMÁS FOURNIER MD [facility] Transcribed By: MUS Signed By Tomás Fournier MD, [facility] 06/19/22 1555Mag[facility]uder Memorial HospitalEosinophils Auto (Bld) [#/Vol]Ordered By: Yaakov Greenwood on 63-82-0596Qmvpbcexady (Bld) [#/Vol]0.1 10*3/uL0.0-0.45Wexner Medical CenterEosinophils/100 WBC Auto (Bld) Ordered By: Yaakov Greenwood on 54-77-3025Ycsmspxwuyc/100 WBC (Bld)1.2 %.Wexner Medical CenterErythrocyte distribution width Auto (RBC) [Ratio]Ordered By: Yaakov Greenwood on 17-52-0776Mojhvubvwhj distribution width (RBC) [Ratio]17.7 % 11.9-15.3FACMC Healthcare System GlenbeighGlucose [Mass/volume] in Serum or PlasmaOrdered By: Yaakov Greenwood on 84-92-6249Crdyqmb [Mass/Vol]98 mg/gA93-167 [facility]ner Medical CenterComment on above:ADA recommended reference rangeRandom Glucose Reference Range is dependent on time and content of last meal. Glucose of more than 200 mg/dL in a nonstressed, ambulatory subject supports the diagnosisof Diabetes Mellitus.Hematocrit Auto (Bld) [Volume fraction]Ordered By: Yaakov Greenwood on 00-41-4318Enrrkkearq (Bld) [Volume fraction]34.7 %34.0-46.4FACMC Healthcare System GlenbeighHemoglobin [Mass/volume] in BloodOrdered By: Yaakov Greenwood on 83-81-7118Owzyjumtge (Bld) [Mass/Vol]11.0 g/dL11.8-15.4FACMC Healthcare System GlenbeighLeukocytes [#/volume] corrected for nucleated erythrocytes in Blood by Automated coun Ordered By: Yaakov Greenwood on 62-93-5734OWI corrected for nucl RBC Auto (Bld) [#/Vol]9.9 10*3/uL3.8-11.6FACMC Healthcare System GlenbeighLymphocytes Auto (Bld) [#/Vol]Ordered By: Yaakov Greenwood on 50-00-7104Wmtoumskqvh (Bld) [#/Vol]2.6 10*3/uL1.00-4.8Wexner Medical CenterLymphocytes/100 WBC Auto (Bld) Ordered By: Yaakov Greenwood on 14-71-2846Zwybeygbqzk/100 WBC (Bld)26.8 %.[facility] Auto (RBC) [Entitic mass]Ordered By: Yaakov Greenwood on 42-48-4535FJM (RBC) [Entitic mass]24.2 pg24.7-34.3Fire[facility] Regional Medical CenterMCHC Auto (RBC) [Mass/Vol]Ordered By: Yaakov Greenwood on 46-89-2619WTCA (RBC) [Mass/Vol]31.6 g/dL32.0-35.0Wexner Medical CenterMCV Auto (RBC) [Entitic vol]Ordered By: Yaakov Greenwood on 21-59-7835FCG (RBC) [Entitic vol]76.8 oP40-685AunlrnurrWexner Medical CenterMonocytes Auto (Bld) [#/Vol]Ordered By: Yaakov Greenwood on 06-61-7549Kolyucksq (Bld) [#/Vol]0.6 10*3/uL0.0-0.8Wexner Medical CenterMonocytes/100 WBC Auto (Bld)Ordered By: Yaakov Greenwood on 51-45-2404Lswburcqx/100 WBC (Bld)6.1 %.[facility] Neutrophils Auto (Bld) [#/Vol]Ordered By: Yaakov Greenwood on 71-96-5146Enufiudmmus (Bld) [#/Vol]6.4 10*3/uL1.8-7.7FACMC Healthcare System GlenbeighNeutrophils/100 WBC Auto (Bld)Ordered By: Yaakov Greenwood on 67-30-5617Cxaroumycwf/100 WBC (Bld) 65.2 %.Wexner Medical CenterNo Panel InformationOrdered By: Yaakov Greenwood on 73-29-5347Woeafvdfu GFR (CKD-EPI)> 60.0 mL/MinWexner Medical CenterPharmacy Creatinine Clearance (ChemN/AFACMC Healthcare System Glenbeigh Nucleated erythrocytes [Presence] in Blood by Automated countOrdered By: Yaakov Greenwood on 71-97-3654Kgkclbjby RBC Auto Ql (Bld)0.1 /100{WBC}0-0.5FACMC Healthcare System GlenbeighPartial Thromboplastin Timeon 52-26-1737lLYX Coag (Bld) [Time]28.8 gJvhkhj67.1-36.5FACMC Healthcare System GlenbeighComment on above: Result Comment: PERFORMED BY: [place] [address] [place] [address] PATHOLOGIST CUSTOMER SERVICE TECHNICIAN REBEKAH HENRY M.D.Performed By: #### PT, PTT, CBC, BMP #### [facility] [address] [place] [address] USAPlatelet mean volume Auto (Bld) [Entitic vol]Ordered By: Yaakov Greenwood on 95-55-3231Qakxcuzt mean volume (Bld) [Entitic vol]9.5 fL6.3-10.7 Wexner Medical CenterPlatelet poor plasma international normalized ratio (INR) by coagulation assay (relatOrdered By: Yaakov Greenwood on 31-24-8274VGF Coag (PPP) [Relative time]1.0 {INR}NormalWexner Medical Center Comment on above:INR Therapeutic Range A) Pre- and Peroperative OAT started two weeks before surgery. NOT HIP SURGERY: 1.5 - 2.5 HIP SURGERY: 2 - 3B) Primary and secondary prevention of venous THROMBOSIS: 2 - 3C) Active venous thrombosis, pulmonary embolismand prevention of recurrent venous thrombosis: 2 - 3D) Preve ntion of arterial thromboembolismincluding patients with mechanical heart valves: 3 - 4.5Result Comment: INR Therapeutic Range A) Pre- and [...] patients with mechanical heart valves: 3 - 4.5Performed By: #### PT, PTT, CBC, BMP #### [facility] [address] [place] [address] USAPlatelets Auto (Bld) [#/Vol]Ordered By: Yaakov Greenwood on 79-48-9142Ahtkzaelz (Bld) [#/Vol]242 10*3/uF977-486RdngbxwwwWexner Medical CenterPotassium [Moles/volume] in Serum or PlasmaOrdered By: Yaakov Greenwood on 16-96-7805Rzigcwhab [Moles/Vol]4.1 mmol/L3.5-5.1FACMC Healthcare System GlenbeighProthrombin Time INROrdered By: Yaakov Greenwood on 98-27-1687EH Coag (PPP) [Time]11.9 sNormal9.0-12.9Wexner Medical CenterComment on above: Performed By: #### PT, PTT, CBC, BMP #### [facility] [address] [place] [address] USARBC Auto (Bld) [#/Vol]Ordered By: Yaakov Greenwood on 15-04-4166YHB (Bld) [#/Vol]4.53 10*6/uL3.60-5.00Mer[facility] Health Willard Hospitalerum or plasma anion gap determinationOrdered By: Yaakov Greenwood on 71-71-0969Faeff gap [Moles/Vol]17.0 mmol/L6.0-15.0Mer[facility] Health Willard Hospitalodium [Moles/volume] in Serum or PlasmaOrdered By: Yaakov Greenwood on 43-59-1371Uecays [Moles/Vol]137 mmol/U637-893WftkznmwnWexner Medical Center Urea nitrogen [Mass/volume] in Serum or PlasmaOrdered By: Yaakov Greenwood on 46-93-6941Lppx nitrogen [Mass/Vol]17 mg/dL7-25[facility] WBC Auto (Bld) [#/Vol]Ordered By: Yaakov Greenwood on 26-97-9504UTK (Bld) [#/Vol]9.9 10*3/uL3.8-11.6FACMC Healthcare System GlenbeighXR chest 2V*on 19-37-0321GB chest 2V*[facility] Main [facility] [place] [address] XRay Report Signed Patient: Jessica Gutierrez MR#: [id number] 44 : 1975 Acct:[id number] Age/Sex: 47 / F ADM Date: 06/19/22 Loc: PS Room: Type: [facility] Attending Dr: Yaakov Greenwood MD Copies to: [...] PROCESS. Impression dictated by: Sam Alvares Jr., D.O.06/19/2022 4:19 PM Dictation Location: [place] [address] Transcribed By: [facility] 06/19/22 1619 Dictated By: Sam Alvares Jr, DO 06/19/22 1618 Signed By: 06/19/22 1619[facility] HospitalCT ABD/PELVIS WO CONon 45-51-9229JX ABD/PELVIS WO CONEXAMINATION: CT ABD/PELVIS WO CON HISTORY: Epigastric pain ; intermittent [...] Electronically authenticated by: DINORAH REDD Date: 2022-01-04 15:59[facility] Panel Informationon 09-05-3877Dfkejvwce Clinic VAHE/ANGIOTENSIN BLDon 68-05-1003Ekhyuxeqkuv converting enzyme [Catalytic activity/Vol]57 U/LHigh<=52 U/LCSelect Medical Specialty Hospital - TrumbullC-REACTIVE PROTEIN (CRP)on 66-44-9060XHV [Mass/Vol]1.4 mg/dLHigh<0.9 mg/dLMercy Health W Auto Differential panel (Bld)on 88-78-1752Pns Immature Gran0.03 k/uL<0.10 k/uL [facility] HospitalBasophils (Bld) [#/Vol]0.04 10*3/uL<0.11 k/uLFlower Hospital Basophils/100 WBC (Bld)0.6 %[facility] HospitalDifferential cell count method Nom (Bld)AutoCleveland ClinicEosinophils (Bld) [#/Vol]0.03 10*3/uL<0.46 k/uL [facility] HospitalEosinophils/100 WBC (Bld)0.5 %[facility] HospitalErythrocyte distribution width (RBC) [Ratio]14.6 %11.5 - 15.0 %[facility] HospitalHematocrit (Bld) [Volume fraction]36.9 %36.0 - 46.0 %[facility] HospitalHemoglobin (Bld) [Mass/Vol]11.6 g/dL11.5 - 15.5 g/dLFlower HospitalImmature Gran %0.5 %[facility] HospitalLymphocytes (Bld) [#/Vol]1.66 10*3/uL1.00 - 4.00 k/uLFlower Hospital Lymphocytes/100 WBC (Bld)25.3 %[facility] Memorial HospitalH (RBC) [Entitic mass]25.7 pg Low26.0 - 34.0 pgCBellevue HospitalHC (RBC) [Mass/Vol]31.4 g/dL30.5 - 36.0 g/dL [facility] Memorial HospitalV (RBC) [Entitic vol]81.8 fL80.0 - 100.0 fLCSelect Medical Specialty Hospital - Trumbull Monocytes (Bld) [#/Vol]0.34 10*3/uL<0.87 k/uLFlower HospitalMonocytes/100 WBC (Bld)5.2 %[facility] HospitalNeutrophils (Bld) [#/Vol]4.47 10*3/uL1.45 - 7.50 k/uL [facility] HospitalNeutrophils/100 WBC (Bld)67.9 %[facility] HospitalNucleated RBC (Bld) [#/Vol]<0.01 k/uLFlower HospitalNucleated RBC/100 WBC (Bld) [Ratio]0.0 /100 WBCHanksville ClinicPlatelet mean volume (Bld) [Entitic vol]12.7 fL9.0 - 12.7 fLCleveland ClinicPlatelets (Bld) [#/Vol]227 10*3/uL150 - 400 k/uLFlower HospitalRBC (Bld) [#/Vol]4.51 10*6/uL3.90 - 5.20 m/uLFlower HospitalWBC (Bld) [#/Vol]6.57 10*3/uL3.70 - 11.00 k/[facility]erm[facility] HospitalComprehensive metabolic 2000 panelon 26-95-9920Whcenvo [Mass/Vol]4.7 g/dL3.9 - 4.9 g/dLHanksville ClinicALP [Catalytic activity/Vol]80 U/L34 - 123 U/LCleveland ClinicALT [Catalytic activity/Vol]34 U/L7 - 38 U/LCleveland ClinicAnion gap [Moles/Vol]13 mmol/L9 - 18 mmol/LCleveland ClinicAST [Catalytic activity/Vol]41 U/LHigh13 - 35 U/L [facility] HospitalBilirubin [Mass/Vol]0.2 mg/dL0.2 - 1.3 mg/dLFlower Hospital Calcium [Mass/Vol]9.8 mg/dL8.5 - 10.2 mg/dLFlower HospitalChloride [Moles/Vol] 99 mmol/L97 - 105 mmol/LCleveland ClinicCO2 [Moles/Vol]25 mmol/L22 - 30 mmol/L [facility] HospitalCreatinine [Mass/Vol]0.77 mg/dL0.58 - 0.96 mg/dLFlower Hospital Estimated Glomerular Filtration Rate95 mL/min/1.73m>=60 mL/min/1.73mCleveland ClinicGlucose [Mass/Vol]125 mg/qEPfvs48 - 99 mg/dLFlower HospitalPotassium [Moles/Vol]4.3 mmol/L3.7 - 5.1 mmol/LCleveland ClinicProtein [Mass/Vol]6.3 g/dL 6.3 - 8.0 g/dLOhioHealth Berger Hospitalodium [Moles/Vol]137 mmol/L136 - 144 mmol/L [facility] HospitalUrea nitrogen [Mass/Vol]13 mg/dL7 - 21 mg/dLLakeHealth Beachwood Medical Center Westergren method (Bld) [Velocity]on 47-74-6295TSS (Bld) [Velocity]10 mm/h0 - 20 mm/hrFlower HospitalCT CHEST WO IVCONon 22-02-3520Jjlfivcvr Clinic VAHE/ANGIOTENSIN BLDon 18-58-5674Nttwekixspk converting enzyme [Catalytic activity/Vol]51 U/L<=52 U/LCleveland Cass Lake HospitalC3 COMPLEMENT Don 09-21-2021 Complement C3 [Mass/Vol]206 mg/fDGgzm64 - 166 mg/dLFlower HospitalC4 COMPLEMENT Don 77-30-2666Rctelsgsry C4 [Mass/Vol]31 mg/dL13 - 46 mg/dLFlower Hospital RHEUMATOID FACTOR BLon 53-99-3199Tfhaqjjjvr factor Qn[IU]/mL<16 IU/mLCleveland ClinicVITAMIN B12 BLOODon 21-70-6652Vkywvjdqj (Vitamin B12) [Mass/Vol]611 pg/mL 232-1,245 pg/mLCleveland ClinicALLIED HEALTHon 99-38-9762TQDHVR Peoplefilter TechnologyTAUNTON STATE HOSPITAL ID: [id number] Author: Janey Ruiz (Rt) Service: Radiology Author Type: Cleaning Handyman Type: Allied Health Filed: 03/28/2018 3:48 PM [...] BY: RT Joseph March 28, 2018 3:48 PMNormalFacranberry specialty hospital HospitalCB and Differentialon 03-28-2018 Abs Baso<0.03Normal<0.11[facility] HospitalComment on above:Performed By: #### CBCDIF, CMP, LIPA #### [address] Mono0.38 k/uLNormal<0.87Facranberry specialty hospital HospitalComment on above: Performed By: #### CBCDIF, CMP, LIPA #### [address] Neut3.99 k/uLNormal1.45-7.50[facility] hospital HospitalComment on above: Performed By: #### CBCDIF, CMP, LIPA #### [place] [address]Basophils/100 WBC (Bld)0.2 %NormalAvoca HospitalComment on above: Performed By: #### CBCDIF, CMP, LIPA #### [place] [address]DTYPEAuto DiffNormalAvoca HospitalComment on above:Performed By: #### CBCDIF, CMP, LIPA #### [place] [address]Eosinophils #/vol (Bld)0.07 10*3/uLNormal<0.46[facility] Comment on above:Performed By: #### CBCDIF, CMP, LIPA #### [place] [address]Eosinophils/100 WBC (Bld)1.1 %NormalAvoca HospitalComment on above:Performed By: #### CBCDIF, CMP, LIPA #### [place] [address]Erythrocyte distribution width Ratio (RBC)12.8 %Qvlnhk57.5-15.0 [facility] HospitalComment on above:Performed By: #### CBCDIF, CMP, LIPA #### [place] [id number] Volume Fraction (Bld)38.4 %Utiiow53.0-46.0[facility] County HospitalComment on above:Performed By: #### CBCDIF, CMP, LIPA #### [place] [address]Hemoglobin mass conc (Bld)12.9 g/nGSjxtjf03.5-15.5FHarley Private Hospital Comment on above:Performed By: #### CBCDIF, CMP, LIPA #### [place] [address]Lymphocytes #/vol (Bld)1.83 10*3/uLNormal1.00-4.00[facility] Comment on above:Performed By: #### CBCDIF, CMP, LIPA #### [place] [address]Lymphocytes/100 WBC (Bld)29.1 %NormalMiddlesex County HospitalComment on above:Performed By: #### CBCDIF, CMP, LIPA #### [address] Entitic mass (RBC)29.6 lZZdfwpg61.0-34.0[facility] County HospitalComment on above:Performed By: #### CBCDIF, CMP, LIPA #### [place] [address]MCHC mass conc (RBC)33.6 g/kMSkvmyn91.5-36.0[facility] County HospitalComment on above:Performed By: #### CBCDIF, CMP, LIPA #### [address] Entitic volume (RBC)88.1 gUWncwim38.0-100.0[facility] Comment on above:Performed By: #### CBCDIF, CMP, LIPA #### [place] [address]Monocytes/100 WBC (Bld)6.1 %NormalAvoca HospitalComment on above: Performed By: #### CBCDIF, CMP, LIPA #### [place] [phone]/100 WBC (Bld)63.5 %NormalAvoca HospitalComment on above:Performed By: #### CBCDIF, CMP, LIPA #### [place] [phone] mean volume Entitic volume (Bld)11.6 fLNormal9.0-12.7 [facility] County HospitalComment on above:Performed By: #### CBCDIF, CMP, LIPA #### [place] [phone] #/vol (Bld)179 10*3/lLDzyvoq268-493Tsphhgga Hospital Comment on above:Performed By: #### CBCDIF, CMP, LIPA #### [place] [phone] #/vol (Bld)4.36 10*6/uLNormal3.90-5.20[facility] hospital HospitalComment on above:Performed By: #### CBCDIF, CMP, LIPA #### [place] [phone] #/vol (Bld)6.28 10*3/uLNormal3.70-11.00[facility] HospitalComment on above:Performed By: #### CBCDIF, CMP, LIPA #### [place] [phone] Metabolic Panelon 77-21-8488Zjuzufr mass conc4.4 g/dLNormal 3.5-5.0[facility] HospitalComment on above:Performed By: #### CBCDIF, CMP, LIPA #### [place] [phone] enzyme act/vol73 U/QZdyayd25-479Ivtxwjyn HospitalComment on above:Performed By: #### CBCDIF, CMP, LIPA #### [place] [phone] enzyme act/vol19 U/LNormal0-45[facility] HospitalComment on above: Performed By: #### CBCDIF, CMP, LIPA #### [place] [phone] gap molar conc13 mmol/LNormal9-18[facility] HospitalComment on above:Performed By: #### CBCDIF, CMP, LIPA #### [address]AST enzyme act/vol20 U/LNormal7-40[facility] HospitalComment on above: Performed By: #### CBCDIF, CMP, LIPA #### [place] [phone] mass conc0.3 mg/dLNormal0.2-1.3Fcorrigan mental health center HospitalComment on above:Performed By: #### CBCDIF, CMP, LIPA #### [place] [phone] mass conc9.0 mg/dLNormal8.5-10.5[facility]corr[facility] HospitalComment on above:Performed By: #### CBCDIF, CMP, LIPA #### [address]Chloride molar kemz747 mmol/XAtrijb99-164Aohumhxd HospitalComment on above:Performed By: #### CBCDIF, CMP, LIPA #### [place] [phone] molar conc23 mmol/AQdcsam07-27Phnhizgc HospitalComment on above: Performed By: #### CBCDIF, CMP, LIPA #### [place] [phone] mass conc0.80 mg/dLNormal0.70-1.40[facility] Comment on above:Performed By: #### CBCDIF, CMP, LIPA #### [place] [phone]- Amer.>60Normal>60[facility] HospitalComment on above: Performed By: #### CBCDIF, CMP, LIPA #### [place] [phone]/1.73 sq M predicted among non-blacks MDRD vol rate/area (S/P/Bld)mL/min/{1.73_m2}Normal>60[facility] HospitalComment on above:Performed By: #### CBCDIF, CMP, LIPA #### [place] [phone] mass conc86 mg/eBLqsmoy91-561Lgpzabuj HospitalComment on above:Performed By: #### CBCDIF, CMP, LIPA #### [place] [phone] molar conc3.9 mmol/LNormal3.5-5.0[facility] HospitalComment on above:Performed By: #### CBCDIF, CMP, LIPA #### [place] [phone] mass conc7.0 g/dLNormal6.0-8.4Fcorrigan [facility] center HospitalComment on above:Performed By: #### CBCDIF, CMP, LIPA #### [address]Sodium molar cboa908 mmol/ZVfncda791-605Pchoistm HospitalComment on above:Performed By: #### CBCDIF, CMP, LIPA #### [address]Urea nitrogen mass conc13 mg/dLNormal8-25[facility] HospitalComment on above:Performed By: #### CBCDIF, CMP, LIPA #### [place] [id number] [place] [address] GM NOTEon 24-11-6251QE NOTEHNO ID: [id number] Author: Mary Newton) OCTAVIO Camara Service: Nursing Author Type: Registered Nurse Type: ED Notes Filed: 03/28/2018 8:51 PM Note Text: Pt comprehends and verbalizes understanding of discharge instructions, medications reviewed and verbalizes proper follow up care. Signs and symptoms reviewed on when to return to emergency department. AANDOx3. Pt ambulatory out of ER to home.[facility] NOTEHNO ID: [id number] Author: Zeeshan Newton) OCTAVIO Bethea Service: (none) Author Type: Registered Nurse Type: ED Notes Filed: 03/28/2018 7:06 PM Note Text: Report given to Mary CeballosHillcrest Hospital NOTEHNO ID: [id number] Author: Zeeshan Newton) OCTAVIO Bethea Service: (none) Author Type: Registered Nurse Type: ED Notes Filed: 03/28/2018 6:21 PM Note Text: Straight cath urine specimen obtained and sent.[facility] PROV NOTEon 95-04-1730Peqcotq mass concHNO ID: [id number] Author: Sarah Andersen ([place]) Service: (none) Author Type: Physician Air Motor Repairer Type: ED Provider Notes Filed: 03/28/2018 7:29 PM Note Text: ED Provider Note Patient Name: Jessica Gutierrez SERVICE DATE: 03/28/18 History Patient presents with: [...] Final Result IMPRESSION: NONOBSTRUCTIVE BOWEL GAS PATTERN Hydramatic Mechanic: CJ Transcribe Date/Time: Mar 28 2018 3:53P [...] opinion. She reports she [facility] to figure out what was wrong with [...] colonoscopy. She has an appointment with Dr. Price April 08. Patient was agreeable to discharge. She was also given another referral to GI if she can be seen sooner. SIGNATURE: GRISEL Moreno) [facility] 03/28/181919 Sarah Toscano) [facility] 03/28/181928NormalAvoca HospitalLipaseon 30-98-3149Dokrgm enzyme act/vol27 U/UIuirsm20-05Ipjwoihp HospitalComment on above:Performed By: #### CBCDIF, CMP, LIPA #### [place] [phone] with Microscopicon 30-83-0416Vjzomwby LM.HPF #/area (Urine sed)FewCritically abnormalNegativeFacranberry specialty hospital HospitalComment on above: Performed By: #### UAWMIC #### [place] [phone], UrineNegativeNormalNegativeFacranberry specialty hospital HospitalComment on above:Performed By: #### UAWMIC #### [place] [phone] Nom (U)HazyCritically abnormalClearFcorrigan mental health center HospitalComment on above:Performed By: #### UAWMIC #### [phone] Nom (U)YellowNormalYellowFacranberry specialty hospital HospitalComment on above: Performed By: #### UAWMIC #### [place] [phone] COMMENTNormalFairview HospitalComment on above:Result Comment: Microscopic Examination PerformedPerformed By: #### UAWMIC #### [place] [phone] cells LM.HPF #/area (Urine sed)SEE COMMENTCritically abnormalNegativeFairview HospitalComment on above:Result Comment: Rare Squamous Epithelial CellsPerformed By: #### UAWMIC #### [place] [phone] Ql (U)NegativeNormalNegativeFairview HospitalComment on above:Performed By: #### UAWMIC #### [place] [phone]/Blood,UrModerateCritically abnormalNegativeFairview HospitalComment on above:Performed By: #### UAWMIC #### [place] [place] [id number] Ql (U)TraceCritically abnormalNegativeFairpomerene hospital Hospital Comment on above:Performed By: #### UAWMIC #### [place] [phone] abnormalNegativeFacranberry specialty hospital HospitalComment on above:Performed By: #### UAWMIC #### [place] [phone] Ql (Urine sed)PresentNormalFairview HospitalComment on above: Performed By: #### UAWMIC #### [place] [phone] Ql (U)NegativeNormalNegativeFairview HospitalComment on above:Performed By: #### UAWMIC #### [place] [phone] (Bld)6.7Rsrrje7.0-8.0[place] HospitalComment on above:Performed By: #### UAWMIC #### [place] [address]Protein mass conc (U)100 mg/dLCritically abnormalNegativeAvoca HospitalComment on above:Performed By: #### UAWMIC #### [address]RBC #/vol (U)ManyCritically abnormalNegativeAvoca HospitalComment on above:Performed By: #### UAWMIC #### [place] [address]Specific [place], Ur1.315Eacusl7.005-1.030Facranberry specialty hospital HospitalComment on above:Performed By: #### UAWMIC #### [place] [address]Urobilinogen Qn (U)<2.0Normal<2.0[place] HospitalComment on above: Performed By: #### UAWMIC #### [address]WBC #/vol (Bld)ManyCritically abnormalNegativeAvoca Hospital Comment on above:Performed By: #### UAWMIC #### [place] [address]Urine Cultureon 56-79-0541Jlnovyin identified Cx Nom (U)Sp. Request/Comment: - Specimen received in preservative Culture Result - 10,000 - <50,000 CFU/ml Maryann lusitaniae --> ABNORMAL ALERT Critically abnormalAvoca HospitalComment on above:Performed By: #### CBCDIF, CMP, LIPA #### [place] [phone] ACUTE ABD SERIES 2V ABD+CXRon 88-06-7607RC ACUTE ABD SERIES 2V ABD+CXR* * *Final Report* * * DATE OF [...] the colon IMPRESSION: NONOBSTRUCTIVE BOWEL GAS PATTERN Hydramatic Mechanic: CJ Transcribe Date/Time: Mar 28 2018 3:53P Dictated by : FARIDEH ARIAS MD This examination was interpreted and the report reviewed and electronically signed by: FARIDEH ARIAS MD on Mar 28 2018 3:53PM EST [id number]_IDCSIACNNUMass Memorial Medical CenterNo Panel InformationFlower Hospital Vital Signs Date TimeVital SignValuePerforming LhlxhllflOaallvzp53-68-5912 11:00-0400 Diastolic blood xemornqy48 mm[Hg]Camilo Deras [facility]05-15-2025 11:00-0400 Diastolic blood lnuungov96 mm[Hg]Camilo Deras [facility]05-15-2025 11:00-0400Heart rate76 /minBradfino Deras [facility]05-15-2025 11:00-0400Heart rate74 /minBradford Braeden [facility]05-15-2025 11:00-0400Mean blood mm[Hg]Camilo Deras [facility]05-15-2025 11:00-0400 Respiratory rate16 /minBrania Deras [address] [place], [place] [address]5805-15-2025 11:00-0400 Systolic blood fkutagdf539 mm[Hg]Camilo Deras [facility]05-15-2025 11:00-0400 Systolic blood emkwztkz858 mm[Hg]Camilo Deras [facility]02-04-2025 13:36-0500 Diastolic blood uyrgouvt47 mm[Hg]Camilo Deras [facility]02-04-2025 13:36-0500 Diastolic blood siykgist97 mm[Hg]Camilo Deras [facility]02-04-2025 13:36-0500Heart rate73 /minBradfino Deras [facility]02-04-2025 13:36-0500Mean blood padupmqt58 mm[Hg]Camilo Deras [facility]02-04-2025 13:36-0500 Respiratory rate15 /minBradford Deras [facility]02-04-2025 13:36-0500 Respiratory rate14 /minBradford Deras [facility]02-04-2025 13:36-0500 Systolic blood mm[Hg]Camilo Deras [facility]02-04-2025 13:36-0500 Systolic blood nzrkkahr557 mm[Hg]Camilo Deras [facility]10-14-2024 10:24-0400 Diastolic blood fqeyiylt03 mm[Hg]Camilo Deras [facility]10-14-2024 10:24-0400Heart rate79 /minBradfino Deras [facility]10-14-2024 10:24-0400Heart rate77 /minBradfino Deras [facility]10-14-2024 10:24-0400Mean blood jmtnclqe23 mm[Hg]Camilo Deras [facility]10-14-2024 10:24-0400 Respiratory rate16 /minBradford Deras [facility]10-14-2024 10:24-0400 Systolic blood tbwznowi912 mm[Hg]Camilo Deras [facility]10-14-2024 10:24-0400 Systolic blood zgjdexer795 mm[Hg]Camilo Deras [facility]07-11-2024 13:14-0400 Diastolic blood ekrkljls06 mm[Hg]Camilo Deras [facility]07-11-2024 13:14-0400 Diastolic blood mm[Hg]Camilo Deras [facility]07-11-2024 13:14-0400Heart rate83 /minBradford Deras [facility]07-11-2024 13:14-0400Heart rate85 /minBradfino Deras [facility]07-11-2024 13:14-0400Mean blood mm[Hg]Camilo Deras [facility]07-11-2024 13:14-0400 Respiratory rate16 /minBradford Braeden [facility]07-11-2024 13:14-0400 Respiratory rate14 /minBradford Braeden [facility]07-11-2024 13:14-0400 Systolic blood hydfrshz710 mm[Hg]Camilo Deras [facility]07-11-2024 13:14-0400 Systolic blood kcdpmyor813 mm[Hg]Camilo Deras [facility]03-21-2024 12:14-0400 Diastolic blood zmishqhx61 mm[Hg]Camilo Deras [facility]03-21-2024 12:14-0400 Diastolic blood gwoaoxmq56 mm[Hg]Camilo Deras [facility]03-21-2024 12:14-0400Heart rate80 /minBradford Braeden [facility]03-21-2024 12:14-0400Heart rate75 /minBradford Braeden [facility]03-21-2024 12:14-0400Mean blood zgdefuoz34 mm[Hg]Camilo Deras [facility]03-21-2024 12:14-0400 Respiratory rate16 /minBradford Braeden [facility]03-21-2024 12:14-0400 Respiratory rate18 /minBradford Braeden [facility]03-21-2024 12:14-0400 Systolic blood mgioyera372 mm[Hg]Camilo Deras [facility]03-21-2024 12:14-0400 Systolic blood mm[Hg]Page Deras [facility]12-21-2023 08:26-0500 Diastolic blood wdduhqdw59 mm[Hg]Camilo Deras [facility]12-21-2023 08:26-0500 Diastolic blood ozjpbpsv51 mm[Hg]Page Deras [facility]12-21-2023 08:26-0500Heart rate81 /minBradford Deras [facility]12-21-2023 08:26-0500Heart rate82 /minBradford Deras [facility]12-21-2023 08:26-0500Mean blood ueuotxal56 mm[Hg]Camilo Deras [facility]12-21-2023 08:26-0500 Respiratory rate16 /minCamilo Deras [facility]12-21-2023 08:26-0500 Systolic blood eseflpno701 mm[Hg]Camilo Deras [facility]12-21-2023 08:26-0500 Systolic blood hdgityzo484 mm[Hg]Camilo Deras [facility]12-13-2023 13:16-0500 Diastolic blood uztigure81 mm[Hg]Haile Barrios MD Work Phone: [facility]12-13-2023 13:16-0500Heart rate84 /min Haile Barrios MD Work Phone: [facility]12-13-2023 13:16-0056XaR3% (BldA) [Mass fraction]97 %Haile Barrios MD Work Phone: [facility]12-13-2023 13:16-0500Systolic blood mm[Hg]Haile Barrios MD Work Phone: [facility]11-02-2023 11:35-0400Diastolic blood mm[Hg]Camilo Deras [facility]11-02-2023 11:35-0400Heart rate77 /minCamilo Deras [facility]11-02-2023 11:35-0400Mean blood mm[Hg]Camilo Deras [facility]11-02-2023 11:35-0400 Respiratory rate14 /minCamilo Deras [facility]11-02-2023 11:35-0400 Systolic blood bejsrezi581 mm[Hg]Camilo Deras [facility]05-15-2023 17:10-0400 Diastolic blood amyjkrcc79 mm[Hg]MD Hunter Quinteros Work Phone: 1(235)117-[address] [place], [place] [address]326205-15-2023 17:10-0400 Heart rate83 /min Hunter Quinteros Work Phone: 1([phone])[address]05-15-2023 17:10-0400 Respiratory rate16 /min Hunter Jamesjoanne Work Phone: 1([phone])[address]05-15-2023 17:10-0400 SaO2% (BldA) [Mass fraction]96 %MD Hunter Quinteros Work Phone: 1(553)[address]05-15-2023 17:10-0400 Systolic blood xmwuypft941 mm[Hg]MD Hunter Quinteros Work Phone: 1([phone] [place], [place] 0473305-15-2023 15:56-0400 Body iicotscpufl96 [degF]MD Hunter Quinteros Work Phone: [phone] [place], [place] 0473305-15-2023 15:32-0400 Inhaled oxygen flow rate8 L/minMD Patellas Jacobjoanne Work Phone: [phone] [place], [place] 0473305-15-2023 14:49-0400 Body mass index (BMI) [Ratio]33.3 kg/m2MD Hunter Quinteros Work Phone: 1([phone] [place], [place] 0473305-15-2023 14:07-0400 Body ywwpdq944.1 cmMD Hunter Quinteros Work Phone: 1([phone])[address]05-15-2023 14:07-0400 Body ogsugg10.71 kgMD Hunter Quinteros Work Phone: 1([phone]04-12-2023 14:31-0400 Diastolic blood xqjsciin13 mm[Hg]Remi Quintero [facility]04-12-2023 14:31-0400Heart rate82 /minRemi Griffinumbar [facility]04-12-2023 14:31-0400Mean blood ezbwfewz09 mm[Hg]Remi Zumbar [facility]04-12-2023 14:31-0400 Respiratory rate16 /minZasylviery Zumbar [facility]04-12-2023 14:31-0400 Systolic blood uhndyiru415 mm[Hg]Remi Griffinumbar [facility]02-08-2023 10:09-0500 Diastolic blood hyklzpce75 mm[Hg]Marilia Siu PA-C Work Phone: c[facility] TrumbullXisptj97-77-3206 10:09-0500Heart rate91 /min Marilia Siu PA-C Work Phone: [phone] hospitaland Nkfesi95-79-1731 10:09-0500Respiratory rate 16 /minMarilia Siu PA-C Work Phone: [phone] hospitaland Gevqkz67-29-5918 10:09-2098JbY4% (BldA) [Mass fraction]98 %Marilia Siu PA-C Work Phone: [phone] city hospitaland Xhnvwr97-84-1704 10:09-0500Systolic blood ofqdsiqe840 mm[Hg]Marilia Siu PA-C Work Phone: [phone] hospitaland Asvkim01-91-6386 12:54-0500Body fmjehh186.1 cmoJse Hassan MD Work Phone: [phone] city hospitaland Siycoj79-51-3296 12:54-0500Body fbtniu92.25 kgJose Hassan MD Work Phone: [phone] Sanfjr39-11-4156 12:54-0500Diastolic blood iqcmmqpg75 mm[Hg]Jose Hassan MD Work Phone: c[facility] - TrumbullRulwph20-76-0846 12:54-0500Heart rate85 /min Jose Hassan MD Work Phone: [place] Ubkhta40-66-2751 12:54-0500Systolic blood vjvuzytt965 mm[Hg]Jose Hassan MD Work Phone: [place] Mkhlhp09-63-2898 12:21-0500Diastolic blood wgwtlytd30 mm[Hg]Remi Zumbar [facility]12-07-2022 12:21-0500Heart rate86 /minZachary Zumbar [facility]12-07-2022 12:21-0500Mean blood wauymonq319 mm[Hg]Remi Zumbar [facility]12-07-2022 12:21-0500 Respiratory rate16 /minZachary Zumbar [facility]12-07-2022 12:21-0500 Systolic blood tgbjvimq621 mm[Hg]Remi Zumbar [facility]12-01-2022 13:07-0500Blood Pressure LocationMichael NILL [phone]-QygfbBl[facility]ard [facility] [place] 01-18-2022 13:07-0500Diastolic blood xyshawio28 mm[Hg]Landry NILL [phone]-UzprmOhio[facility] [place] 01-18-2022 13:07-0500Heart rate73 /minMichael NILL [phone]-QcgpkOhiohealth [facility] [place] 01-18-2022 13:07-0500Respiratory rate16 /minMichael NILL [phone]-HiwetBlanchard Valley Health System [facility] [place] 01-18-2022 13:07-0500Systolic blood kqtcndyv915 mm[Hg]Landry HALINA [phone]-CuryhBlanchard Valley Health System [facility] [place] 10-20-2021 08:33-0400Body mbdvynweqfo79.3 [degF]Urszula Sood MD Work Phone: [phone]09-02-2022 08:33-0400Diastolic blood nhnnwuba03 mm[Hg]Urszula Sood MD Work Phone: [phone]09-02-2022 08:33-0400Heart rate85 /min Urszula Sood MD Work Phone: [phone]09-02-2022 08:33-0400Systolic blood tkzjazqb477 mm[Hg]Urszula Sood MD Work Phone: [phone]08-05-2022 07:00-0400Body nzestw241.1 cmNeur Access Work Phone: [phone]08-05-2022 07:00-0400Body hlyheo37.72 kgNeur Access Work Phone: [phone]08-05-2022 07:00-0400Diastolic blood hkjwlozr57 mm[Hg][employer] Work Phone: [phone]08-05-2022 07:00-0400Heart rate79 /min [employer] Work Phone: [phone]08-05-2022 07:00-0400Systolic blood qypddnfk045 mm[Hg][employer] Work Phone: [phone]08-04-2022 10:43-0400Body .4 Nathaly Fuentes MD Work Phone: [phone] Medical Specialty Hospital - TrumbullOumfbt84-74-4211 10:43-0400Body wemvnj35.72 kgBhargavoline Jeyson ROSS Work Phone: [phone] Medical Specialty Hospital - TrumbullUddzef61-09-6354 10:43-0400Diastolic blood xjjrculz48 mm[Hg]Justina Fuentes MD Work Phone: [phone] Medical Specialty Hospital - TrumbullYcigcc75-78-0087 10:43-0400Heart rate83 /min Justina Fuentes MD Work Phone: c[facility] - TrumbullUdzhpj72-18-8116 10:43-0400Systolic blood epexygdo893 mm[Hg]Justina Fuentes MD Work Phone: c[facility] - TrumbullPzuulc22-01-5946 12:17-0400Body uamkfk445.1 cmAlfred Geo PA-C Work Phone: [facility]07-13-2022 12:17-0400Body tucmji98.72 kgAlfred Geo PA-C Work Phone: [facility]04-14-2022 08:57-0400Diastolic blood dqcygboc94 mm[Hg]Remi Zumbar [facility]04-14-2022 08:57-0400Heart rate82 /minZachary Zumbar [facility]04-14-2022 08:57-0400Mean blood intoyjlp64 mm[Hg]Remi Zumbar [facility]04-14-2022 08:57-0400 Respiratory rate18 /minZachary Zumbar [facility]04-14-2022 08:57-0400 Systolic blood pouggqso984 mm[Hg]Remi Zumbar [facility] Encounters Encounter DateEncounter TypeCare ProviderFacilityStart: 62-00-1788trrpylpmzm Lakiarhona YenFacility: EleanoryStart: 09-18-7046npsfwffkzuEtmlij J Galea Facility:[facility]Start: 31-78-6835ccuiaovpbfTtuhsm J GaleaFacility: [place]Start: 11-11-2024 End: 04-21-7761zyzlxvsxlgWvogjt J GaleaFacility:[facility] HealthuskyStart: 11-11-2024 End: 08-66-5983Uyrjnyg encounter procedureAlysrhona Yen [facility] Start: 10-30-2024 End: 25-81-4635egdonrlhdqZjyumhaz A. JonesFacility:FTMCStart: 10-21-2024 End: 94-05-0236fjcjkwxnkyKteptw J GaleaFacility:EU [place]uskyStart: 10-21-2024 End: 38-61-6211Prwswat encounter procedureAlysrhona Yen [facility] Start: 09-30-2024 End: 98-49-9654cqxjnybcuiJtlhvxa P COOKFacility:EU [place]kyStart: 09-30-2024 End: 03-21-1445Xxjungb encounter procedureYaakov GREENWOOD [facility] Start: 09-17-2024 End: 71-56-8646YgosiyHrmqwzJelly Corado PA-C Work Phone: [facility] CenterComment on above:Refill RequestStart: 09-09-2024 End: 88-02-6011gmbbjeefeeLarxil J GaleaFacility:EU [place]kyStart: 09-09-2024 End: 93-47-4562Jkbbhhb encounter procedureAlysrhona Yen [facility] Start: 08-19-2024 End: 30-25-7943Qttrsdb encounter procedureMARILIA CR [facility] Start: 08-19-2024 End: 98-28-5048nazjbpwssuST-C JENNIFER E PERRYFacility:EU [place]kyStart: 08-04-2024 End: 51-35-0077Rsdtbgtyz encounterOdilia Corrigan MD Work Phone: pulmonary MedicineStart: 07-29-2024 End: 97-11-3547esqsyokixpZmphon J GalanamFacility:EU [place]kyStart: 07-29-2024 End: 43-18-2007Fczzzav encounter procedureAlysha Sameer Yen [facility] Start: 07-09-2024 End: 52-60-5523vlzvqyzjpkZfleaam HoyFacility:FTMCStart: 07-08-2024 End: 86-33-5085gazwitfahjSenrcl Sameer SoliseaFacility:EU uskyStart: 07-08-2024 End: 25-45-7771Qtnsxin encounter procedureAlysrhona Yen [facility] Start: 07-02-2024 End: 93-41-7186kkbdchlsnjIgtyjupd A. JonesFacility:FTMCStart: 07-02-2024 End: 01-18-6658Ttohfsw encounter procedureCamilo Deras [facility] Start: 06-22-2024 End: 75-53-3953QzhvslIvmdcyvl Bethoux MD Work Phone: [facility] CenterComment on above:Refill RequestStart: 41-03-5386izoioyxexyGsuoxb TannaFacility:EU [place]kyStart: 06-17-2024 End: 08-15-0994nzstxyzrrkZmazde Sameer YenFacility:FTMCStart: 06-17-2024 End: 72-55-5186Ozo Drop offAlysha Sameer Yen [facility] Start: 06-17-2024 End: 81-54-3162ggezoqifouZxbgfs J GaleaFacility:EU [facility]yStart: 05-28-2024 End: 04-22-1043Fvd Drop offAurora X Orzech [facility] Start: 05-28-2024 End: 73-99-5934iuzeswvlukKnvadn X OrzechFacility:FTMCStart: 05-25-2024 End: 52-92-0135Kef-admission assessmentDougantonia Quinteros [facility] Start: 05-05-2024 End: 20-67-4287fbrykjtaloMgxsit X OrzechFacility:[facility] HospitalyStart: 04-14-2024 End: 32-62-0557yvnuchsrqjTfecmv X OrzechFacility:[facility] HospitalyStart: 04-14-2024 End: 77-36-3572Iszwrdw encounter procedureAurora X Orzech [facility] Start: 03-24-2024 End: 23-29-3609biifqzmiicAfmewgax A. JonesFacility:FTMCStart: 03-24-2024 End: 18-80-9356Cacxpra encounter procedureCamilo Deras [facility] Start: 03-24-2024 End: 43-39-9061Vcu Drop offAurora X Orzech [facility] Start: 03-24-2024 End: 59-37-1925nuglhfnsfoEdqxvw X OrzechFacility:FTMCStart: 03-24-2024 End: 06-74-6954Mqdunbk encounter procedureAurora X Orzech [facility] Start: 68-37-0727ubkkywmonaGjkfbiog A. Jones Facility:[facility]ALTHtart: 03-03-2024 End: 62-15-6765qcwonqmmouIdxmtk X OrzechFacility:EU [facility] HospitalyStart: 03-03-2024 End: 30-51-9125Mfisryk encounter procedureAurora X Orzech [facility] Start: 02-10-2024 End: 67-02-9501ctmaynxrefMU-C MARILIA Mcfarland PERRYFacility:EU [facility] HospitalyStart: 02-10-2024 End: 48-80-0962Noeookx encounter procedureJENNIFER E TAYO [facility] Start: 33-56-2068ttvgpiwovwGWTLPGLW L HEHRFacility:[facility] Start: 01-22-2024 End: 55-55-9839pryzcvfbhhFI-C MARILIA Mcfarland PERRYFacility:[facility] HospitalyStart: 01-22-2024 End: 46-01-2343Xefbfyi encounter procedureJENNIFER E TAYO [facility] Start: 12-04-2023 End: 76-92-7563Wbxuznh encounter procedureLakia Yen [facility] Start: 12-02-2023 End: 76-21-2636Xjcxowt encounter procedureCamilo Deras [facility] Start: 11-28-2023 End: 77-99-2593Quaok abstractingMarilia Siu PA-C Work Phone: mellen CenterComment on above:Forms (OT-Partridge Wagner ) Start: 10-31-2023 End: 53-46-3798Bxmjqix encounter procedureAuroredgar Sweet [facility] Start: 10-23-2023 End: 23-78-2495Xskybfz encounter procedureAlysrhona Yen [facility] Start: 10-01-2023 End: 42-07-1499Fujafcp encounter procedureYaakov GREENWOOD [facility] Start: 47-31-5521LoavuhJkwpsvtwJoaquín Siu PA-C Work Phone: mellen CenterComment on above:Refill RequestStart: 09-17-2023 End: 35-92-3491jnggfftvtaVhkxqeuf Just MD Work Phone: NeurologyComment on above:Intractable migraine without aura and without status migrainosus (Primary Dx); Transverse myelitis (HCC)Start: 09-17-2023 End: 67-53-3308Lsoiyrpfnyrw consultation with Radha Fuentes MD Work Phone: NeurologyStart: 09-10-2023 End: 17-68-2618Foslevc encounter procedureYaakov GREENWOOD [facility] Start: 08-29-2023 End: 71-53-7461Rndo ManagementCamilo Deras [facility] Start: 08-20-2023 End: 29-12-3471Hlufumv encounter procedureYaakov Caicedo CHERELLE [facility] Start: 07-30-2023 End: 85-79-9444Doxkwin encounter procedureJETORRI CR [facility] Start: 07-11-2023 End: 98-81-8200Bayytnh encounter procedureYaakov Caicedo CHERELLE [facility] Start: 06-18-2023 End: 83-34-1777Vayadkv encounter procedureYaakov Caicedo CHERELLE [facility] Start: 05-28-2023 End: 70-70-3632Mqlpvdt encounter procedureYaakov Caicedo CHERELLE [facility] Start: 46-93-9602FazbsiUxkbrhah Bethoux MD Work Phone: [facility] CenterComment on above:Refill RequestStart: 05-09-2023 End: 41-19-3107Vmsm ManagementCamilo Deras [facility] Start: 05-07-2023 End: 07-69-5813Uamlxys encounter Mirian PRINCE [facility] Start: 04-17-2023 End: 05-19-9872Yqqbqwf encounter procedureYaakov GREENWOOD [facility] Start: 03-05-2023 End: 73-71-1494Asbopul encounter procedureGregsuzette GREENWOOD [facility] [place] Start: 02-15-2023 End: 05-46-9285Bjdmjge encounter procedureDovandana Aldair [facility] [place] Start: 02-07-2023 End: 62-04-5275Aszj ManagementCamilo Deras [facility] Start: 01-30-2023 End: 08-46-8159Amjquqi encounter procedureHaile Barrios MD Work Phone: mellen CenterComment on above:Spastic hemiparesis affecting dominant side (HCC) (Primary Dx); Acute transverse myelitis (HCC)Start: 01-23-2023 End: 78-62-6938Rijiffk encounter procedurePachacho PRINCE [facility] [place] Start: 12-20-2022 End: 25-34-1244Dapk ManagementCamilo Deras [facility] Start: 12-11-2022 End: 22-06-4140Gxiziec encounter procedureGregsuzette GREENWOOD [facility] [place] Start: 11-20-2022 End: 49-30-4560Ocnrjte encounter procedureGregory Sascha GREENWOOD [facility] [place] Start: 10-30-2022 End: 53-90-6774Eakrqmb encounter procedurePachacho Belkis PRINCE [facility] Start: 10-11-2022 End: 77-69-0865Daldcbr encounter procedureJETORRI Bruna CR [facility] [place] Start: 09-18-2022 End: 88-66-4066Hhiznme encounter procedureYaakov GREENWOOD [facility] [place] Start: 08-03-2022 End: 77-76-7311Gumbuco encounter procedureHaile Barrios MD Work Phone: mellen CenterComment on above:Spastic hemiparesis affecting dominant side (HCC) (Primary Dx); Acute transverse myelitis (HCC); Chronic right shoulder pain; Dysphagia, unspecified typeStart: 07-31-2022 End: 33-23-6476Emlbakv encounter procedureYaakov GREENWOOD [facility] [place] Start: 07-12-2022 End: 49-56-6326prvmmlcecjZMFBYYH D KATKOFacility:C6Ezlld: 07-03-2022 End: 25-49-5593Xigkoeq encounter procedureYaakov GREENWOOD [facility] [place] Start: 07-02-2022 End: 39-90-9606auvqfkagclJwppxkq M HoyFacility:[facility] Start: 07-02-2022 End: 83-90-1632Qjrpzxvfy to same day surgery centerCA Hunter Quinteros Work Phone: [facility] CampusStart: 07-02-2022 End: 27-40-3534jkxgbcpihmZT Hunter Quinteros Work Phone: [facility] Work Phone: Start: 07-02-2022 End: 65-66-5233Snn-SiteGregsuzette GREENWOOD [facility] Start: 06-19-2022 End: 44-48-3782dlscvfliuvPowhowl P CookFacility:[facility] Hospitaltart: 06-19-2022 End: 06-18-7794bqkcjviovvWD Douglas M Hoy Work Phone: [facility] Work Phone: Start: 06-19-2022 End: 24-45-4993Fgkrawh encounter procedure Hunter Quinteros Work Phone: [facility] Work Phone: Start: 06-11-2022 End: 47-23-5090Bkwknbs encounter procedureYaakov GREENWOOD [facility] Start: 05-30-2022 End: 20-76-9613Eitp [facility] [facility] Start: 05-28-2022 End: 17-13-5034ypwjhkqhgaHGXLYSV D KATKOFacility:Y7Kktfo: 04-30-2022 End: 91-90-4912Dtzkjlu encounter procedureYaakov GREENWOOD [facility] Start: 04-06-2022 End: 18-63-5396Tnlvude encounter procedureLancali Hyatt ClemonsExecutive [facility] Start: 03-30-2022 End: 03-63-5498dhkowatnnbAXXQWT DIAB .Facility:B1Etxru: 03-28-2022 End: 05-77-2378Nbymuml encounter procedureMarilia Siu PA-C Work Phone: mellen CenterComment on above:Spastic hemiparesis affecting dominant side (HCC) (Primary Dx)Start: 02-28-2022 End: 24-85-6658Hlmzytp encounter procedureLancali A ClemonsExec[facility] Start: 02-07-2022 End: 02-65-3657Uzjtopb encounter procedureJose Hassan MD Work Phone: mellen CenterComment on above:Acute transverse myelitis (HCC) (Primary Dx)Start: 01-31-2022 End: 24-50-0976Ofhinjd encounter procedureLancali A ClemonsExec[facility] Start: 01-24-2022 End: 99-84-3873Hiyaown encounter procedureZaandrew Quintero [facility] Start: 01-24-2022 End: 22-03-5343Wbdq ManagementZaholzer medical center – [facility] Start: 01-18-2022 End: 36-21-9861Oomrikg encounter procedureMichael R NILL [phone]-QkgfhBlanchard Valley Health [facility] [place] Start: 01-05-2022 End: 22-11-3503Afijlfs encounter procedureLancali Hyatt ClemonsExec[facility] Start: 01-04-2022 End: 52-59-3528oxomtvedbbAO HUNTER ALDAIR .Facility:V0Vtcuu: 31-77-1655Flsyxvrtm encounterMaureen Ivec PT, DPT Work Phone: [facility] Physical TherapyComment on above:Physical TherapyStart: 96-63-0362Dkfzl Katiana Phillips APRN.FIELD INTERVIEWER Work Phone: [facility] CenterComment on above:Orders (Faxed orders) Start: 12-19-2021 End: 31-83-9062pphngvakjkIhoacse Ivec PT, DPT Work Phone: [facility] Physical TherapyComment on above:Impaired mobility and ADLs (Primary Dx); Spastic hemiparesis affecting dominant side (HCC); Abnormality of gaitStart: 12-12-2021 End: 79-01-7217Gxtupvv encounter procedureMARILIA CR [facility] Start: 71-56-6671Ptnuajkcb encounterMaureen Ivec PT, DPT Work Phone: [facility] Physical TherapyComment on above:Physical TherapyStart: 16-25-7035Zvhxffccp encounterMaureen Ivec PT, DPT Work Phone: [facility] Physical TherapyComment on above:Physical TherapyStart: 57-00-4470Jmcvydwql encounterMaureen Ivec PT, DPT Work Phone: [facility] Physical TherapyComment on above:Physical TherapyStart: 12-06-2021 End: 90-68-8036fjymyjjcciAgzenua Ivec PT, DPT Work Phone: [facility] Physical TherapyComment on above:Spastic hemiparesis affecting dominant side (HCC); Impaired mobility and ADLs; Abnormality of gaitStart: 12-06-2021 End: 35-99-0765Wxxxvmb encounter Hugo Elizondo MD Work Phone: OphthalmologyComment on above:Vision loss, bilateral (Primary Dx); Transverse myelitis (HCC); Uveitis; Optic neuropathyStart: 11-28-2021 End: 78-03-4360hasqaetdhcErhp Stro Work Phone: Pulmonary LabComment on above:SpirometryStart: 11-28-2021 End: 93-70-0962Gzxjypz encounter procedurePulm Lab [facility] Stro Work Phone: [facility]tart: 83-99-8999Ftxjenbsg encounterDesiree Phillips APRN.FIELD INTERVIEWER Work Phone: mellen CenterComment on above:Appointment (Left Pt a VM asking they return our call to schedule PT/OT/Speech Therapy Consults, pre ferably on the same day as their BOTOX appointment on 02/20/22)Start: 11-14-2021 End: 59-55-8434Vvikphn encounter Myra Phillips APRN.FIELD INTERVIEWER Work Phone: mellen CenterComment on above:Spastic hemiparesis affecting dominant side (HCC) (Primary Dx); Impaired mobility and ADLs; Abnormality of gait; Dysphagia, unspecified typeStart: 11-02-2021 End: 93-23-3425Aikkjdc encounter Nadia CR [facility] Start: 10-27-2021 End: 10-33-1938Mgcwmjgweh hospital visit by physicianMri 3 Radio Main Q (I-Stat/1.5t/3t) Work Phone: MRZ QComment on above:Transverse myelitis (HCC) [G37.3]Start: 10-26-2021 End: 40-18-1190Bvbdxnx encounter Nadia CR [facility] Start: 10-20-2021 End: 09-49-5799Uqznijs encounter procedureUrszula Sood MD Work Phone: RheumatologyComment on above:Spastic hemiplegia of right dominant side due to noncerebrovascular etiology (HCC) (Primary Dx); ILD (interstitial lung disease) (HCC); Uveitis; Recurrent mouth ulcerationHypoglycemic reaction (Primary Dx)Start: 10-18-2021 ambulatoryJustina Fuentes MD Work Phone: NeurologyComment on above:ANKLE BRACEStart: 10-12-2021 Telephone encounterJustina Fuentes MD Work Phone: NeurologyComment on above:OrdersReceived Outside Medical RecordsStart: 10-06-2021 End: 66-83-1501Yaawjmwmme hospital visit by physicianFranchesca Duffy 0 (I-Stat) Work Phone: RadiologyComment on above:Localized enlarged lymph nodes [R59.0]Start: 09-22-2021 End: 98-84-9254Vncyegc encounter procedurePriya Benavides Work Phone: mellen CenterComment on above:Transverse myelitis (HCC) (Primary Dx); Localized enlarged lymph nodes; Vision loss of right eyeStart: 09-21-2021 End: 66-05-7579Rtpymku encounter Jada Fuentes MD Work Phone: NeurologyComment on above:Transverse myelitis (HCC) (Primary Dx)Start: 09-05-2021 End: 96-94-1703Mdtavuu encounter procedureYaakov GREENWOOD [facility] Start: 08-30-2021 End: 38-03-2432Wsrtqhr encounter procedureAlreema Guardado PA-C Work Phone: Spdhj InstituteComment on above:Hemiparesis of right dominant side, unspecified hemiparesis etiology (HCC) (Primary Dx)Start: 08-07-2021 End: 88-52-6960Dpxdxzp encounter procedureCandido PRINCE [facility] Donn start: 06-27-2021 End: 30-94-2285Sradkov encounter procedureYaakov GREENWOOD [facility] Ricky Start: 06-01-2021 End: 24-69-1190Bpzj ManagementBrighton Leon [facility] Start: 09-10-8297Sxhujmzji encounterNeurology Provider NeurologyComment on above:Received Outside Medical Records ([facility] NI referral) Start: 16-01-6860Wmptq abstractingUnknownNeurologyStart: 03-28-2018 End: 94-93-2971Kaxkikvlc department patient visitMiddlesex County Hospital Procedures DateProcedureProcedure DetailPerforming ClinicianStart: 50-56-2318Udrbmtmrm - action (qualifier value)Lakia Yen Start: 93-82-6434Yebmpjlfk - action (qualifier value) Camilo Deras start: 28-30-6907Kbcpscsaxth - action (qualifier value) Sraai Sweet Start: 73-21-5818LklyixwhvvjddipiQgbznntt Jones comment on above:botox injections- RUE- 70% relief for 2 monthsStart: 26-18-9997TablxcdpbfjkidwfWloygcsh Jones comment on above:botox injection to RUE- 80% relief x 2 monthsStart: 28-10-3161Zjrssby point (body structure)Camilo Deras comment on above:50% reliefStart: 74-52-1304RJ Cysto Suprapubic Tube Placement (Not Applicable)MD Hunter Quinteros Work Phone: Start: 51-45-3300Huony chest X-rayMD Hunter Quinteros Work Phone: Start: 12-06-2021 End: 14-22-4306Dxnkds photography w/interpretation & reportPrieto Elizondo MD Work Phone: Start: 32-19-0759At diffusing Rosa Saenz RN Start: 88-48-8143Umd brain brain stem w/o contrast Kellen De Jesus MD Work Phone: Start: 39-98-0113Uqtqkg photography w/interpretation & reportDanadia Dillon MD Work Phone: Start: 77-66-2816Ywkgd depression screening assessment Justina Fuentes MD Work Phone: start: 42-68-8617Xm thorax w/o contrast Kellen De Jesus MD Work Phone: Start: 24-74-1531Jxrczjaxywt of kneeZachary Zumbar start: 90-85-4246Hkmtpzdmmvlctttai with dilation of urethral strictureZachary Zumbar start: 15-34-5937Tcnuzhhrnz studiesZachary Zumbar start: 36-21-7500Jqutuf cord stimulator implantZachary Zumbar start: 90-55-3462gbax lumbar sympathetic plexus block 1 Remi Bhardwajar comment on above:25% relief x 10 days then pain returned same as beforeStart: 59-33-9476gxsn lumbar sympathetic plexus block 2 Camilo Deras comment on above:25% relief x 10 days then pain returned same as beforeStart: 72-36-3226kafc lumbar sympathetic plexus block 3 Camilo Deras comment on above:25% relief x 10 days then pain returned same as beforeStart: 76-00-8064ckmg lumbar sympathetic plexus block 4 Camilo Deras comment on above:25% relief x 10 days then pain returned same as beforeStart: 83-51-3152Svwj sympathetic plexus block 2Zaandrew Quintero comment on above:swelling has gone down-50% relief Start: 87-71-5424Iagm sympathetic plexus block 3Bkierra Deras comdiif on above:swelling has gone down-50% relief Start: 96-82-8904Hqgq sympathetic plexus block 4Bkierra Deras comment on above:swelling has gone down-50% relief Start: 28-68-5770Qjqi sympathetic plexus block 5Bkierra Deras comcami on above:swelling has gone down-50% relief Start: 74-17-0396Hdkqa depression screening assessmentNeurology ProviderStart: 36-53-8444JhysnwadtmywOeqvnvv Shmooploretta arthroscopy of kneeZaknox county hospital Poll Everywhere comment on above:W/ ACL REPAIRColonoscopyMichael NILL EsophagogastroduodenoscopyMichael NILL L salpingooopherectomyLincoln Hospitalry Poll Everywhere right Eye Tubal ShuntZaholzer medical [facility] Poll Everywhere spinal cord stimulator trial 4Remi Quintero comment on above:60% reliefspinal cord stimulator trial 5Bkierra Braeden comment on above:60% reliefspinal cord stimulator trial 6Bkierra Deras comment on above:60% reliefspinal cord stimulator trial 7Bkierra Deras Comment on above:60% reliefVaginal hysterectomyMichael NILL Plan of Treatment DateCare ActivityDetailAuthorStart: 10-57-0241VWXBKDID SCREENDIABETES SCREEN [facility]: 28-15-0097Abzmasbp ScreeningDiabetes ScreeningOhioHealth Berger Hospitaltart: 10-20-2024 End: 13-35-2620dxpoxbmarn55/02/2025 1:30 PM EDT [facility] [address] [place] [address] Justina Fuentes MD [address] [place] [address] MIGRAINES NeurologyComment on above:MIGRAINESStart: 12-82-2227Lmgtiewde vaccination [facility]art: 08-07-2024 End: 25-14-4374Fgifhmo encounter fefgfelzz28/20/2025 1:45 PM EDT Office Visit Pulmonary Medicine [address] [place] [address] Odilia Corrigan MD [address] [place] [address] follow upPulmonary MedicineComment on above:follow up Start: 08-07-2024 End: 66-47-6641jujnqslruxUuskfbszu MedicineComment on above:Dyspnea and respiratory abnormalities [R06.00, R06.89]Start: 07-24-2024 End: 16-48-3691Eqznvop encounter uovjesaas82/06/2025 1:15 PM EDT Office Visit Pulmonary Medicine [address] [place] [address] Odilia Corrigan MD [address] [place] [address] follow upPulmonary MedicineComment on above:follow up Start: 07-24-2024 End: 59-62-2398Pyddlqu encounter procedurePulmonary MedicineComment on above:Dx: Dyspnea and respiratory abnormalities [R06.00, R06.89]Start: 12-12-2023 End: 26-19-4368moxtcfwmkf52/24/2024 9:30 AM EDT [facility] [address] [place] [address] Justina Fuentes MD [address] [place] [address] migraine, spasticity concern, previous transverse myelitis.NeurologyComment on above: migraine, spasticity concern, previous transverse myelitis.Start: 10-20-2023 Covid-19 Vaccine ()Covid-19 Vaccine () [facility]: 16-71-6989Relsxnkkq vaccinationOhioHealth Berger Hospitaltart: 09-30-2023 End: 84-19-5016Pshwfiz encounter ojrwclabb48/12/2024 3:30 PM EDT Office Visit Pulmonology [facility] [address] [place] [address] Odilia Corrigan MD [address] [place] [address] BREATHING LYING DOWN Pulmonology [place] FHCComment on above: BREATHING LYING DOWN Start: 09-17-2023 End: 10-31-8432Grulchbcpistg metabolic 2000 panel - Serum or PlasmaCOMPREHENSIVE METABOLIC PANEL Lab Routine Intractable migraine without aura and without status migrainosus Expected: 09/17/2023, Expires: 12/17/2023[facility] Work Phone: comment on above:Expected: 09/17/2023, Expires: 12/17/2023Start: 71-70-1383Rirvuizqpuxp Vaccine: 50+ (1 of 1 - PCV)Pneumococcal Vaccine: 50+ (1 of 1 - PCV)[facility]: 90-56-4736Thgwzuaj Vaccine (1 of 2)Shingrix Vaccine (1 of 2)[facility]: 36-28-1335Fykayqxhon Health ScreeningBehavioral Health ScreeningOhioHealth Berger Hospitaltart: 82-87-5039Zoxje depression screening assessmentDEPRESSION SCREENINGOhioHealth Berger Hospitaltart: 83-18-2475Pgzfm-19 Vaccine ()Covid-19 Vaccine ()[facility]: 47-08-4923Lahjdmgpy vaccinationFlower Hospital Start: 07-02-2022 End: 11-04-0069XkygediuoMercy Health Willard Hospitaltart: 40-35-9900TGWKYGAFUK ASSESSMENTDEPRESSION ASSESSMENTOhioHealth Berger Hospitaltart: 10-20-2021 End: 77-71-9141IPXG NEUTRO CYTO ABCSouthview Medical Center Work Phone: Comment on above:Expected: 10/20/2021, Expires: 12/20/2021tart: 41-44-7358Dvcsoyrea vaccinationOhioHealth Berger Hospitaltart: 09-22-2021 End: 59-97-8935IYLIVQFBLE ENCEPHALOPATHY EVALUATION, [facility] Work Phone: comment on above:Expected: 09/22/2021, Expires: 11/22/2021tart: 09-22-2021 End: 03-71-3441Nhesfzxyluj nuclear Ab panel - [facility] Work Phone: comment on above:Expected: 09/22/2021, Expires: 11/22/2021tart: 09-22-2021 End: 32-44-1399VKGUKJFMYQH 2 RECEPTOR, SOLUBLE, [facility] Work Phone: comment on above:Expected: 09/22/2021, Expires: 11/22/2021tart: 09-22-2021 End: 83-93-8829OMR NEURO INSTOCT NEURO INST OPHT Imaging Routine Transverse myelitis (HCC) Expected: 09/22/2021, Expires: 4CSouthview Medical Center Work Phone: comment on above:Expected: 09/22/2021, Expires: 03/16/2023Start: 09-21-2021 End: 77-26-4914AHG BY IFA WITH [facility] Work Phone: comment on above:Expected: 09/21/2021, Expires: 11/21/2021tart: 09-21-2021 End: 51-30-9554LGGCJFSAQ 4 RECEPTOR AB, IGG BY IFAHolmes County [facility] Work Phone: comment on above:Expected: 09/21/2021, Expires: 11/21/2021tart: 09-21-2021 End: 89-68-2239LBPGFYBKUHN IGM ABSCSouthview Medical Center Work Phone: comment on above:Expected: 09/21/2021, Expires: 11/21/2021tart: 09-21-2021 End: 23-55-7654HFE DEMYELINATING DISEASE EVALUATION, SERUMHolmes County [facility] Work Phone: comment on above:Expected: 09/21/2021, Expires: 11/21/2021tart: 09-21-2021 End: 12-54-4541SNPYNU BLOODHolmes County Joel [facility] Hospital Work Phone: comment on above:Expected: 09/21/2021, Expires: 11/21/2021tart: 09-21-2021 End: 82-95-9308BSIEXXUQ TOTAL W/REFLEXHolmes County [facility] Work Phone: comment on above:Expected: 09/21/2021, Expires: 11/21/2021tart: 11-92-1176WZAZT-19 VACCINE (4 - Booster for Pfizer series) COVID-19 VACCINE (4 - Booster for Pfizer series)[facility]: 96-19-1191PWJUIFCA SCREENDIABETES SCREENOhioHealth Berger Hospitaltart: 02-18-2021 DEPRESSION ASSESSMENTDEPRESSION ASSESSMENTOhioHealth Berger Hospitaltart: 12-19-2020 Medicare Annual Wellness VisitMedicare Annual Wellness VisitFlower Hospital Start: 30-67-5870Kthgdxfbr vaccinationINFLUENZA (#1)[facility]: 40-09-2054RIAZEYOQD (FIT-DNA)COLOGUARD (FIT-DNA)[facility]tart: 55-20-5055ZhvuuecoufbZSKAUIHMWCDGekjbhcqc ClinicStart: 27-10-6116BXICNXMFKU CANCER SCREENINGCOLORECTAL CANCER SCREENINGCleTriHealth McCullough-Hyde Memorial Hospitaltart: 79-33-2823KJ COLONOGRAPHYCT COLONOGRAPHYCleTriHealth McCullough-Hyde Memorial Hospitaltart: 58-48-9430JVTLE OCCULT BLOOD FECAL OCCULT BLOODOhioHealth Berger Hospitaltart: 53-13-2894Bsdkb panelLipid Screening [facility]: 57-78-6980FGJZI SCREENLIPID SCREENOhioHealth Berger Hospitaltart: 84-53-6909Pppqzryzn for malignant neoplasm of colonOhioHealth Berger Hospitaltart: 61-00-2591OXVANSLKXKVGILNGBKTYSFFMRYPdyfimckm ClinicStart: 07-58-5354Ousup depression screening assessmentDEPRESSION SCREENINGOhioHealth Berger Hospitaltart: 14-30-5583MshuvyemypaHVPENLYFEUdmdgjrad ClinicStart: 38-31-7848Cojyuqmmv for malignant neoplasm of breastMammogram ScreeningOhioHealth Berger Hospitaltart: 05-02-2003 HPV TESTINGHPV TESTINGOhioHealth Berger Hospitaltart: 04-23-8532Zqvcjaoid for malignant neoplasm of cervixHPV TestingOhioHealth Berger Hospitaltart: 66-22-2477ZVL TESTINGPAP TESTINGOhioHealth Berger Hospitaltart: 73-92-6890Ltrhvrpgg for malignant neoplasm of cervixOhioHealth Berger Hospitaltart: 76-50-7470Bdvbauefi B Vaccine (1 of 3 - 19+ 3-dose series)Hepatitis B Vaccine (1 of 3 - 19+ 3-dose series)[facility]: 39-66-5155Sdjxn microalbumin profileOhioHealth Berger Hospitaltart: 30-31-4458Dsgxxoy ScreeningAnxiety ScreeningOhioHealth Berger Hospitaltart: 42-52-4716Mbyzcvnxop Screening Depression ScreeningOhioHealth Berger Hospitaltart: 02-20-2986ZDRKXUXYV C SCREENING HEPATITIS C SCREENINGOhioHealth Berger Hospitaltart: 62-42-1230Jxyxnjpms C screening Hepatitis C ScreeningOhioHealth Berger Hospitaltart: 87-99-0867QDS SCREENINGHIV SCREENING [facility]: 47-77-7175VCF screeningHIV ScreeningFlower Hospital Start: 20-69-8168ZZWVL-19 VACCINE (#1)COVID-19 VACCINE (#1)[facility] Start: 90-71-8334WOMKD-19 VACCINE (1)COVID-19 VACCINE (1)[facility]: 00-12-9563ZYXMYPAAK B (1 of 3 - 3-dose series)HEPATITIS B (1 of 3 - 3-dose series)[facility]: 72-44-1780Zajafmpxt B Vaccine (1 of 3 - 3-dose series)Hepatitis B Vaccine (1 of 3 - 3-dose series)[facility] End: 31-28-2198Xs thorax w/o contrast materialCT CHEST WO IVCON Radiology Routine Localized enlarged lymph nodes 1 Occurrences starting 09/22/2021 until 10/22/2022[facility] Work Phone: comment on above:1 Occurrences starting 09/22/2021 until 10/22/2022LUNG DIFFUSION CAPACITY (DLCO)LUNG DIFFUSION CAPACITY (DLCO) PFT Routine Sarcoidosis SOB (shortness of breath) 11/28/2021 1:49 PMEDTHolmes County Joel [facility]rene [facility] Hospital Work Phone: End: 59-77-4713Lbc brain brain stem w/o contrast materialMRI BRAIN WO IVCON Radiology Routine Transverse myelitis (HCC) 1 Occurrences starting 09/22/2021 until 10/22/2022[facility] Work Phone: comment on above:1 Occurrences starting 09/22/2021 until 10/22/2022 End: 46-41-0486Jmd spinal canal cervical w/o contrast matrlMRI CERVICAL SPINE WO IVCON Radiology Routine Transverse myelitis (HCC) 1 Occurrences starting 09/22 until 10/22/2022[facility] Work Phone: comment on above:1 Occurrences starting 09/22/2021 until 10/22/2022 End: 09-68-8205Mlc spinal canal thoracic w/o contrast matrlMRI THORACIC SPINE WO IVCON Radiology Routine Transverse myelitis (HCC) 1 Occurrences starting 09/22 until 10/22/2022[facility] Work Phone: comment on above:1 Occurrences starting 09/22/2021 until 10/22/2022atient EducationHow to Care for Your Suprapubic Urinary CatheterAshtabula [facility] Ctr Work Phone: Patient referralAshtabula County Medical Center Ctr Work Phone: PT PLAN OF CARE CERTIFICATIONPT PLAN OF CARE CERTIFICATION Procedures Routine Spastic hemiparesis affecting dominant side (HCC) Impaired mobility and ADLs Abnormality of gait Ordered: 12/06/2021 [facility] Work Phone: Comment on above:Ordered: 12/06/2021PIROMETRY WITH DILATOR IF OBSTRUCTEDSPIROMETRY WITH DILATOR IF OBSTRUCTED PFT Routine Sarcoidosis SOB (shortness of breath) 11/28/2021 1:49 PM EDTCSouthview Medical Center Work Phone: End: 14-16-0822BH SHOULDER KFCSAKS6P AP/TRUE AP RIGHTXR SHOULDER KSIMLAE5V AP/TRUE AP RIGHT Radiology Routine Chronic right shoulder pain 1 Occurrences s tarting 08/03/2022 until 09/02/2023[facility] Work Phone: Comment on above:1 Occurrences starting 08/03/2022 until 09/02/2023[facility] Immunizations Immunization DateImmunizationNotesCare BxtekbqpZkowngus49-59-3818BCII-CuC-5 (COVID-19) mRNA BNT-162b2 vaxMichael NILL [phone]-TyxkrOhiohealth [facility] [place] 03-03-2359QQLF-CoV-2 (COVID-19) mRNA BNT-162b2 vaxMichael NILL [phone]-SioijUniversity Hospitals [facility] 56-21-7983YAIR-CoV-2 (COVID-19) mRNA BNT-162b2 vaxMichael NILL [phone]-OtaaaOhiohealth [facility]heastern [facility] Center [facility] [place] 15-01-0606eweqcctke virus vaccine, unspecified formulationYaakov GREENWOOD [facility] [place] 834520-17-2017influenza, injectable, quadrivalent, preservative rAtisla Francesco Sood MD Work Phone: [facility] HospitalNEGATED: Highlighted row has not occurred!90-17-8644byyoizmzw virus vaccine, unspecified formulationMichael NILL [phone]-RimyaBlanchard Valley Health System [facility] [place] Payers DatePayer CategoryPayerPolicy [id number]-wtf [id number] 2021MedicareMEDICARE MEDICARE A AND B [id number] 2020-Present [phone] [place] [address] [id number] 2021Medicare [id number] Health InsuranceAETNA AETNA CHOICE POS II [id number] 2020-Present [phone] [address] [place] [address] [id number] 58-87-8201Nplvhde Health [id number].3.176438.315 [id number] 2..1.048862.3.57[id number] 2..1.031829.3.579.[id number] 2..1.856545.3.579.2.75952-03-3145Fjvsabj1951432 2..1.160831.3.57[id number] 2..1.234418.3.579.2.92651-64-5590Yetukac24042799 2.16840.1.773778.3.579.[id number] 2.16840.1.099326.3.579.2.92459-16-2349Qcologu27493619 2.16840.1.672128.3.579.2.49468-38-8027Rdvyppb44515580 2.16840.1.156041.3.579.2.34792-27-4316Cikggue73107402 2.840.1.172030.3.579.2.77027-02-5900Jykzfnk41807902 2.0.1.978969.3.579.2.82685-49-6345Vumcubu32133276 2.840.1.365610.3.57[id number] 2.840.1.349407.3.579.2.64960-28-5224Pztetii38676858 2.840.1.519057.3.579.2.26594-60-4686Rysavcp16233504 2..1.524002.3.579.2.23327-78-1717Gzpxnyh68419734 2.840.1.499703.3.579.2.31162-10-1136Chcmkdp68272083 2.840.1.108403.3.579.2.62353-92-8092Pyrserh56866286 2.840.1.067186.3.579.2.26311-18-0931Xhsbbev90403364 2.840.1.818832.3.579.2.39015-56-0611Btujdzn05123871 2.16.840.1.004819.3.579.[id number] 2.16.840.1.087211.3.579.2.68002-77-0149Qfdpzrp38285539 2.16.840.1.482859.3.579.2.98828-17-4265Mceerbc89969575 2.16.840.1.059788.3.579.2.27635-75-3631Fijcjpu20150633 2.16840.1.718981.3.579.2.55865-80-7427Oewsifv30143878 2.840.1.507891.3.579.2.97847-66-3820Qflfpnq12294795 2.16840.1.980647.3.579.2.35671-98-0912Apbvsdp61323755 2.840.1.662665.3.579.2.11898-04-8159Xaucnqn51474617 2.840.1.503470.3.579.2.75104-21-4821Syfxxhk57374110 2.840.1.474020.3.579.2.52986-21-4661Xwyaqyd52937827 2.840.1.270250.3.579.2.14685-22-0978Ysuwwbz65210057 2.16840.1.730829.3.579.2.07365-01-7905Tkgxuhs01889975 2.16840.1.179803.3.579.2.10398-00-9030Hownort61416565 2.16.840.1.939930.3.579.2.87566-19-1968Sfxrrqc76176056 2.16840.1.217515.3.579.2.27957-64-2731Myjleex28193408 2..840.1.672256.3.579.2.58747-10-5248Ccgaswx83612320 2..840.1.133733.3.57[id number] 2.16.840.1.876834.3.579.2.727 [id number] 519316yz-m585-85rz-24i4-97yifah9o71q21-08-5734Msgkufl Health [id number] [id number]-[id number]-h72r-[id number] [id number] h1yw4r8h-62b8-291j-357c-[id number] 2.16.840.1.5[id number] 2.16.840.1.835285.3.579.2.531 Worker's CompensationIndustrial Self Ins [id number]-[id number] Social History DateTypeDetailFacilityStart: 12-20-2015 End: 66-92-6753Zeyqktb smoking status NHISNever smoked tobaccoFlower Hospital Start: 12-20-2015 End: 33-95-0305Libaxtj use and exposureSmokeless tobacco non-userOhioHealth Berger Hospitaltart: 07-08-2018 End: 54-42-0261Yuxwxsr intakeCurrent non-drinker of alcohol (finding)[facility] Hospitaltart: 16-50-6744Oep Assigned At BirthNot on fileCleveland Clinic Akron GeneralComment on above:denies.Start: 07-09-2022 End: 77-34-8196Qlh Assigned At BirthFemalCleveland Clinic [facility] Hospitaltart: 08-20-2021 End: 24-33-5408Drbtpfvo to SARS-CoV-2 (event)Not sureOhioHealth Berger Hospitaltart: 10-07-2021 End: 82-58-5332Zdytmpui to SARS-CoV-2 (event)Unable to assessFlower Hospital Tobacco smoking statusExecutive [facility] Tobacco smoking statusNeverBlanchard Valley Health System [facility] NorY[facility] Psych[facility] Hospitaltart: 08-47-4817Gwt [facility]: 07-[facility]2022 End: 63-97-5169Swmftmt of Social functionOhioHealth Berger Hospitaltart: 35-20-2702Cpb Female (finding)[facility] Medical Equipment Procedure CodeEquipment CodeEquipment Original TextEquipment IdentifierDates Drain Ahmed Flexible Plate .635mm .305mm Thk.9mm Blunt Taper Silicone 16x13 - [id number]: 51-66-5039Xqeeg Tutoplast Pericardium 1.5x1.5cm Soft Tissue Allograft Processed - [id number]: 58-22-7018AOMZpivw: 41-04-7654PAZKrrdp: 80-73-7432SGCUdudv: 06-20-6962HWMXwsxp: 61-14-1329UPRWpiug: 70-74-2044IFIOzfqp: 87-09-0614YVIElalg: 58-46-4763VMNFyqar: 82-16-2104XLEPomoo: 40-12-2521BFMTjfdo: 99-80-2555DQBKrrdf: 22-78-3632LTNYctqj: 27-67-2344BUKLdbxp: 29-40-6656IPYMeskf: 35-68-5358AYSDpaxq: 78-05-3719NYGOyqtj: 69-38-7286BIEGsvlp: 46-62-8460PCIMfqbv: 60-04-6643ZSUU ARTHROSCOPY W/ ACL REPAIR Jose Jay DO 08/24/19 Unknown Knee RFDAStart: 72-49-9892ZCGL ARTHROSCOPY W/ ACL REPAIR Jose Jay DO 08/24/19 Unknown Knee RFDAStart: 47-80-1658FPVT ARTHROSCOPY W/ ACL REPAIR Jose Jay DO 08/24/19 Unknown Knee RFDAStart: 69-77-3431OMRH ARTHROSCOPY W/ ACL REPAIR Jose Jay DO 08/24/19 Unknown Knee RFDAStart: 87-30-4154LTOJ ARTHROSCOPY W/ ACL REPAIR Jose Jay DO 08/24/19 Unknown Knee R FDAStart: 45-42-4566PPYZ ARTHROSCOPY W/ ACL REPAIR Jose Jay DO 08/24/19 Unknown Knee RFDAStart: 36-46-4345POIS ARTHROSCOPY W/ ACL REPAIR Jose Jay DO 08/24/19 Unknown Knee RFDAStart: 47-07-8726Feyhchm Unknown 04/10/17 Non Biological EyeFDAStart: 14-50-7214Gvqpcbi on above:Right eye Ahmed glaucoma valve 4-11-68Rzgxjeg Unknown 02/12/18 Non Biological Flank RFDAStart: 02-12-2018 Comment on above:[employer] Spinal Cord Stimulator SC-1200Linear Leads [place]-2218-50very restrictive heating conditions. B1+juan luis less than or equal to 2.0 UT or JAKE Less than or equal to 0.2 W/kgcannot scan in Normal Operating ModeMust use specific Low JAKE protocol for brain and kneeKNEE ARTHROSCOPY W/ ACL REPAIR Jose Jay DO 08/24/19 Unknown Knee RFDAStart: 49-16-0149FEIE ARTHROSCOPY W/ ACL REPAIR Jose Jay DO 08/24/19 Unknown Knee R FDAStart: 26-12-0946VAEH ARTHROSCOPY W/ ACL REPAIR Jose Jay DO 08/24/19 Unknown Knee RFDAStart: 15-56-6282TCVT ARTHROSCOPY W/ ACL REPAIR Jose Jay DO 08/24/19 Unknown Knee RFDAStart: 05-70-2456RBCK ARTHROSCOPY W/ ACL REPAIR Jose Jay DO 08/24/19 Unknown Knee RFDAStart: 11-39-6621GRWI ARTHROSCOPY W/ ACL REPAIR Jose Jay DO 08/24/19 Unknown Knee RFDAStart: 19-80-2487GFKL ARTHROSCOPY W/ ACL REPAIR Jose Jay DO 08/24/19 Unknown Knee RFDAStart: 20-77-7860Lswkmyv Unknown 04/10/17 Non Biological EyeFDAStart: 44-07-0989Oslnqec on above:Right eye Ahmed glaucoma valve 5-55-93Edsttqx Unknown 02/12/18 Non Biological Flank RFDAStart: 16-38-8786Qhcfzio on above:[employer] Spinal Cord Stimulator SC-1200Linear Leads SC-2218-50very restrictive heating conditions. B1+juan luis less than or equal to 2.0 UT or JAKE Less than or equal to 0.2 W/kgcannot scan in Normal Operating ModeMust use specific Low JAKE protocol for brain and kneeKNEE ARTHROSCOPY W/ ACL REPAIR Jose Jay DO A 08/24/19 Unknown Knee RFDAStart: 45-92-8566TUML ARTHROSCOPY W/ ACL REPAIR Jose Jay DO A 08/24/19 Unknown Knee RFDAStart: 80-65-7686XLPO ARTHROSCOPY W/ ACL REPAIR Jose Jay DO A 08/24/19 Unknown Knee RFDAStart: 06-63-8912JMEF ARTHROSCOPY W/ ACL REPAIR Pierre LLOYD Jose A 08/24/19 Unknown Knee RFDAStart: 96-75-2717LWMB ARTHROSCOPY W/ ACL REPAIR Jose Jay DO A 08/24/19 Unknown Knee R FDAStart: 85-19-9695THTQ ARTHROSCOPY W/ ACL REPAIR Jose Jay DO A 08/24/19 Unknown Knee RFDAStart: 75-46-0123QQXZ ARTHROSCOPY W/ ACL REPAIR Jose Jay DO A 08/24/19 Unknown Knee RFDAStart: 83-77-1877Qlvuytm Unknown 04/10/17 Non Biological EyeFDAStart: 69-53-9981Gkdhklu on above:Right eye Ahmed glaucoma valve 7-48-15Oncyria Unknown 02/12/18 Non Biological Flank RFDAStart: 02-12-2018 Comment on above:[employer] Spinal Cord Stimulator SC-1200Linear Leads SC-2218-50very restrictive heating conditions. B1+juan luis less than or equal to 2.0 UT or JAKE Less than or equal to 0.2 W/kgcannot scan in Normal Operating ModeMust use specific Low JAKE protocol for brain and kneeKNEE ARTHROSCOPY W/ ACL REPAIR Jose Jay DO 08/24/19 Unknown Knee RFDAStart: 85-21-9369NAWS ARTHROSCOPY W/ ACL REPAIR Jose Jay DO 08/24/19 Unknown Knee R FDAStart: 41-35-9417LRGN ARTHROSCOPY W/ ACL REPAIR Jose Jay DO 08/24/19 Unknown Knee RFDAStart: 78-15-6484JHFY ARTHROSCOPY W/ ACL REPAIR Jose Jay DO 08/24/19 Unknown Knee RFDAStart: 55-09-6330TGSZ ARTHROSCOPY W/ ACL REPAIR Jose Jay DO 08/24/19 Unknown Knee RFDAStart: 05-23-1296ENRM ARTHROSCOPY W/ ACL REPAIR Jose Jay DO 08/24/19 Unknown Knee RFDAStart: 43-52-6516RRTO ARTHROSCOPY W/ ACL REPAIR Jose Jay DO 08/24/19 Unknown Knee RFDAStart: 49-37-7337Dsdjdqj Unknown 04/10/17 Non Biological EyeFDAStart: 37-28-3510Ybpdacp on above:Right eye Ahmed glaucoma valve 9-83-12Qvudwru Unknown 02/12/18 Non Biological Flank RFDAStart: 04-23-8003Buvhrwd on above:[employer] Spinal Cord Stimulator SC-1200Linear Leads SC-2218-50very restrictive heating conditions. B1+juan luis less than or equal to 2.0 UT or JAKE Less than or equal to 0.2 W/kgcannot scan in Normal Operating ModeMust use specific Low JAKE protocol for brain and kneeKNEE ARTHROSCOPY W/ ACL REPAIR Jose Jay DO 08/24/19 Unknown Knee RFDAStart: 57-20-3245HJMT ARTHROSCOPY W/ ACL REPAIR Jose Jay DO 08/24/19 Unknown Knee RFDAStart: 66-48-8176ZXTQ ARTHROSCOPY W/ ACL REPAIR Jose Jay DO 08/24/19 Unknown Knee RFDAStart: 60-64-1487MOJF ARTHROSCOPY W/ ACL REPAIR Jose Jay DO 08/24/19 Unknown Knee RFDAStart: 13-74-9052MJGT ARTHROSCOPY W/ ACL REPAIR Jose Jay DO 08/24/19 Unknown Knee R FDAStart: 32-43-3357FBCP ARTHROSCOPY W/ ACL REPAIR Jose Jay DO 08/24/19 Unknown Knee RFDAStart: 84-77-8481QAIK ARTHROSCOPY W/ ACL REPAIR Jose Jay DO 08/24/19 Unknown Knee RFDAStart: 93-51-0735Lvrgvvs Unknown 04/10/17 Non Biological EyeFDAStart: 24-12-8676Irnjbtm on above:Right eye Ahmed glaucoma valve 6-63-40Prokykl Unknown 02/12/18 Non Biological Flank RFDAStart: 02-12-2018 Comment on above:[employer] Spinal Cord Stimulator SC-1200Linear Leads SC-2218-50very restrictive heating conditions. B1+juan luis less than or equal to 2.0 UT or JAKE Less than or equal to 0.2 W/kgcannot scan in Normal Operating ModeMust use specific Low JAKE protocol for brain and kneeKNEE ARTHROSCOPY W/ ACL REPAIR Jose Jay DO 08/24/19 Unknown Knee RFDAStart: 37-54-5604CABI ARTHROSCOPY W/ ACL REPAIR Jose Jay DO 08/24/19 Unknown Knee R FDAStart: 89-93-4739MANP ARTHROSCOPY W/ ACL REPAIR Jose Jay DO 08/24/19 Unknown Knee RFDAStart: 75-99-3831YMDN ARTHROSCOPY W/ ACL REPAIR Jose Jay DO 08/24/19 Unknown Knee RFDAStart: 52-84-2574HNRW ARTHROSCOPY W/ ACL REPAIR Jose Jay DO 08/24/19 Unknown Knee RFDAStart: 11-67-6973MKPW ARTHROSCOPY W/ ACL REPAIR Jose Jay DO 08/24/19 Unknown Knee RFDAStart: 15-36-5068VDGR ARTHROSCOPY W/ ACL REPAIR Jose Jay DO 08/24/19 Unknown Knee RFDAStart: 68-01-3575Axltbki Unknown 04/10/17 Non Biological EyeFDAStart: 93-61-7994Msbssse on above:Right eye Ahmed glaucoma valve 4-59-50Gxpdbqe Unknown 02/12/18 Non Biological Flank RFDAStart: 53-78-8377Wmuwefn on above:[employer] Spinal Cord Stimulator SC-1200Linear Leads SC-2218-50very restrictive heating conditions. B1+juan luis less than or equal to 2.0 UT or JAKE Less than or equal to 0.2 W/kgcannot scan in Normal Operating ModeMust use specific Low JAKE protocol for brain and kneeKNEE ARTHROSCOPY W/ ACL REPAIR Jose Jay DO 08/24/19 Unknown Knee RFDAStart: 29-76-9055SULE ARTHROSCOPY W/ ACL REPAIR Jose Jay DO 08/24/19 Unknown Knee RFDAStart: 16-49-2430PFSV ARTHROSCOPY W/ ACL REPAIR Jose Jay DO 08/24/19 Unknown Knee RFDAStart: 69-63-9642JGMB ARTHROSCOPY W/ ACL REPAIR Jose Jay DO 08/24/19 Unknown Knee RFDAStart: 36-43-1386EWDT ARTHROSCOPY W/ ACL REPAIR Jose Jay DO 08/24/19 Unknown Knee R FDAStart: 17-47-2460LONP ARTHROSCOPY W/ ACL REPAIR Jose Jay DO 08/24/19 Unknown Knee RFDAStart: 27-39-6036CIVZ ARTHROSCOPY W/ ACL REPAIR Jose Jay DO 08/24/19 Unknown Knee RFDAStart: 23-64-5137Klybtqg Unknown 04/10/17 Non Biological EyeFDAStart: 86-40-0369Efeeqyl on above:Right eye Ahmed glaucoma valve 3-80-38Ohxxckb Unknown 02/12/18 Non Biological Flank RFDAStart: 02-12-2018 Comment on above:[employer] Spinal Cord Stimulator SC-1200Linear Leads SC-2218-50very restrictive heating conditions. B1+juan luis less than or equal to 2.0 UT or JAKE Less than or equal to 0.2 W/kgcannot scan in Normal Operating ModeMust use specific Low JAKE protocol for brain and kneeKNEE ARTHROSCOPY W/ ACL REPAIR Jose Jay DO 08/24/19 Unknown Knee RFDAStart: 48-20-1982ABSQ ARTHROSCOPY W/ ACL REPAIR Jose Jay DO 08/24/19 Unknown Knee R FDAStart: 65-48-9175YYDY ARTHROSCOPY W/ ACL REPAIR Jose Jay DO 08/24/19 Unknown Knee RFDAStart: 51-79-1270PBZN ARTHROSCOPY W/ ACL REPAIR Jose Jay DO 08/24/19 Unknown Knee RFDAStart: 00-87-4892AKOA ARTHROSCOPY W/ ACL REPAIR Jose Jay DO 08/24/19 Unknown Knee RFDAStart: 75-15-5647EGKO ARTHROSCOPY W/ ACL REPAIR Jose Jay DO 08/24/19 Unknown Knee RFDAStart: 77-36-1399LCQQ ARTHROSCOPY W/ ACL REPAIR Jose Jay DO 08/24/19 Unknown Knee RFDAStart: 32-27-2194Yqebklb Unknown 04/10/17 Non Biological EyeFDAStart: 97-38-5843Ztrmoap on above:Right eye Ahmed glaucoma valve 2-81-59Vltgpxe Unknown 02/12/18 Non Biological Flank RFDAStart: 35-07-1756Ouhvyed on above:[employer] Spinal Cord Stimulator SC-1200Linear Leads [place]-2218-50very restrictive heating conditions. B1+juan luis less than or equal to 2.0 UT or JAKE Less than or equal to 0.2 W/kgcannot scan in Normal Operating ModeMust use specific Low JAKE protocol for brain and kneeKNEE ARTHROSCOPY W/ ACL REPAIR Jose Jay DO 08/24/19 Unknown Knee RFDAStart: 60-20-7284OXMU ARTHROSCOPY W/ ACL REPAIR Jose Jay DO 08/24/19 Unknown Knee RFDAStart: 20-35-0701JOSV ARTHROSCOPY W/ ACL REPAIR Jose Jay DO 08/24/19 Unknown Knee RFDAStart: 68-39-8016DERW ARTHROSCOPY W/ ACL REPAIR Jose Jay DO 08/24/19 Unknown Knee RFDAStart: 45-42-8255OALL ARTHROSCOPY W/ ACL REPAIR Jose Jay DO 08/24/19 Unknown Knee R FDAStart: 25-62-3815NMJX ARTHROSCOPY W/ ACL REPAIR Jose Jay DO 08/24/19 Unknown Knee RFDAStart: 48-34-6504LPVA ARTHROSCOPY W/ ACL REPAIR Jose Jay DO 08/24/19 Unknown Knee RFDAStart: 03-65-3171Yudbfrl Unknown 04/10/17 Non Biological EyeFDAStart: 68-34-3964Nsnqcqu on above:Right eye Ahmed glaucoma valve 2-15-80Upaihty Unknown 02/12/18 Non Biological Flank RFDAStart: 02-12-2018 Comment on above:[employer] Spinal Cord Stimulator SC-1200Linear Leads SC-2218-50very restrictive heating conditions. B1+juan luis less than or equal to 2.0 UT or JAKE Less than or equal to 0.2 W/kgcannot scan in Normal Operating ModeMust use specific Low JAKE protocol for brain and kneeKNEE ARTHROSCOPY W/ ACL REPAIR Jose Jay DO 08/24/19 Unknown Knee RFDAStart: 91-29-5378SNNS ARTHROSCOPY W/ ACL REPAIR Jose Jay DO 08/24/19 Unknown Knee R FDAStart: 97-28-2959SGRI ARTHROSCOPY W/ ACL REPAIR Jose Jay DO 08/24/19 Unknown Knee RFDAStart: 05-87-1290IHWW ARTHROSCOPY W/ ACL REPAIR Jose Jay DO 08/24/19 Unknown Knee RFDAStart: 63-95-6308MTBZ ARTHROSCOPY W/ ACL REPAIR Jose Jay DO 08/24/19 Unknown Knee RFDAStart: 84-14-7201TWDV ARTHROSCOPY W/ ACL REPAIR Jose Jay DO 08/24/19 Unknown Knee RFDAStart: 02-82-1442FDJM ARTHROSCOPY W/ ACL REPAIR Jose Jay DO 08/24/19 Unknown Knee RFDAStart: 87-22-2551Ssjgzpt Unknown 04/10/17 Non Biological EyeFDAStart: 51-38-0429Mcnipqz on above:Right eye Ahmed glaucoma valve 0-31-70Acehvwu Unknown 02/12/18 Non Biological Flank RFDAStart: 65-83-1282Zmuhmwg on above:[employer] Spinal Cord Stimulator SC-1200Linear Leads SC-2218-50very restrictive heating conditions. B1+juan luis less than or equal to 2.0 UT or JAKE Less than or equal to 0.2 W/kgcannot scan in Normal Operating ModeMust use specific Low JAKE protocol for brain and kneeKNEE ARTHROSCOPY W/ ACL REPAIR Jose Jay DO 08/24/19 Unknown Knee RFDAStart: 79-54-3484GVHQ ARTHROSCOPY W/ ACL REPAIR Jose Jay DO 08/24/19 Unknown Knee RFDAStart: 98-24-7619XKRP ARTHROSCOPY W/ ACL REPAIR Jose Jay DO 08/24/19 Unknown Knee RFDAStart: 70-70-0072YROQ ARTHROSCOPY W/ ACL REPAIR Jose Jay DO 08/24/19 Unknown Knee RFDAStart: 64-98-5549DBRR ARTHROSCOPY W/ ACL REPAIR Jose Jay DO 08/24/19 Unknown Knee R FDAStart: 97-91-4701HDQY ARTHROSCOPY W/ ACL REPAIR Jose Jay DO 08/24/19 Unknown Knee RFDAStart: 48-13-2556EXNV ARTHROSCOPY W/ ACL REPAIR Jose Jay DO 08/24/19 Unknown Knee RFDAStart: 61-91-5228Sgmphag Unknown 04/10/17 Non Biological EyeFDAStart: 38-72-7380Ahbhwwo on above:Right eye Ahmed glaucoma valve 9-76-86Wsmvhsi Unknown 02/12/18 Non Biological Flank RFDAStart: 02-12-2018 Comment on above:[employer] Spinal Cord Stimulator SC-1200Linear Leads SC-2218-50very restrictive heating conditions. B1+juan luis less than or equal to 2.0 UT or JAKE Less than or equal to 0.2 W/kgcannot scan in Normal Operating ModeMust use specific Low JAKE protocol for brain and kneeKNEE ARTHROSCOPY W/ ACL REPAIR Jose Jay DO 08/24/19 Unknown Knee RFDAStart: 60-57-2195WLGD ARTHROSCOPY W/ ACL REPAIR Jose Jay DO 08/24/19 Unknown Knee R FDAStart: 29-04-8617LMMM ARTHROSCOPY W/ ACL REPAIR Jose Jay DO 08/24/19 Unknown Knee RFDAStart: 00-11-5963YXEX ARTHROSCOPY W/ ACL REPAIR Jose Jay DO 08/24/19 Unknown Knee RFDAStart: 05-82-5280EDMZ ARTHROSCOPY W/ ACL REPAIR Jose Jay DO 08/24/19 Unknown Knee RFDAStart: 27-64-3604CDEG ARTHROSCOPY W/ ACL REPAIR Jose Jay DO 08/24/19 Unknown Knee RFDAStart: 92-79-7669UIAX ARTHROSCOPY W/ ACL REPAIR Jose Jay DO 08/24/19 Unknown Knee RFDAStart: 12-62-8884Mkvrbtw Unknown 04/10/17 Non Biological EyeFDAStart: 42-50-5022Jluwrfj on above:Right eye Ahmed glaucoma valve 7-29-35Yzrncrw Unknown 02/12/18 Non Biological Flank RFDAStart: 73-34-3809Dhdukrk on above:[employer] Spinal Cord Stimulator SC-1200Linear Leads SC-2218-50very restrictive heating conditions. B1+juan luis less than or equal to 2.0 UT or JAKE Less than or equal to 0.2 W/kgcannot scan in Normal Operating ModeMust use specific Low JAKE protocol for brain and kneeKNEE ARTHROSCOPY W/ ACL REPAIR Jose Jay DO 08/24/19 Unknown Knee RFDAStart: 62-48-9181HUJT ARTHROSCOPY W/ ACL REPAIR Jose Jay DO 08/24/19 Unknown Knee RFDAStart: 72-91-3466PDXR ARTHROSCOPY W/ ACL REPAIR Jose Jay DO 08/24/19 Unknown Knee RFDAStart: 68-37-7069YTMU ARTHROSCOPY W/ ACL REPAIR Jose Jay DO 08/24/19 Unknown Knee RFDAStart: 63-89-9754AUWO ARTHROSCOPY W/ ACL REPAIR Jose Jay DO 08/24/19 Unknown Knee R FDAStart: 59-82-6019HLRT ARTHROSCOPY W/ ACL REPAIR Jose Jay DO 08/24/19 Unknown Knee RFDAStart: 17-01-1340NZYF ARTHROSCOPY W/ ACL REPAIR Jose Jay DO 08/24/19 Unknown Knee RFDAStart: 31-93-6839Xxuwmqi Unknown 04/10/17 Non Biological EyeFDAStart: 38-57-2044Dwljhvq on above:Right eye Ahmed glaucoma valve 8-04-61Uqfvmam Unknown 02/12/18 Non Biological Flank RFDAStart: 02-12-2018 Comment on above:[employer] Spinal Cord Stimulator SC-1200Linear Leads SC-2218-50very restrictive heating conditions. B1+juan luis less than or equal to 2.0 UT or JAKE Less than or equal to 0.2 W/kgcannot scan in Normal Operating ModeMust use specific Low JAKE protocol for brain and kneeKNEE ARTHROSCOPY W/ ACL REPAIR Jose Jay DO A 08/24/19 Unknown Knee RFDAStart: 57-67-2209CULP ARTHROSCOPY W/ ACL REPAIR Jose Jay DO A 08/24/19 Unknown Knee R FDAStart: 46-88-6835KMLA ARTHROSCOPY W/ ACL REPAIR Jose Jay DO 08/24/19 Unknown Knee RFDAStart: 09-05-8907LRSF ARTHROSCOPY W/ ACL REPAIR Jose Jay DO 08/24/19 Unknown Knee RFDAStart: 66-71-0462JXFH ARTHROSCOPY W/ ACL REPAIR Jose Jay DO A 08/24/19 Unknown Knee RFDAStart: 67-27-5590JKXZ ARTHROSCOPY W/ ACL REPAIR Jose Jay DO 08/24/19 Unknown Knee RFDAStart: 82-72-6618TAHS ARTHROSCOPY W/ ACL REPAIR Jose Jay DO 08/24/19 Unknown Knee RFDAStart: 96-98-7460Tjjadkk Unknown 04/10/17 Non Biological EyeFDAStart: 73-89-3080Uphcswy on above:Right eye Ahmed glaucoma valve 4-89-32Gafssji Unknown 02/12/18 Non Biological Flank RFDAStart: 71-64-5991Tearqxq on above:[employer] Spinal Cord Stimulator SC-1200Linear Leads SC-2218-50very restrictive heating conditions. B1+juan luis less than or equal to 2.0 UT or JAKE Less than or equal to 0.2 W/kgcannot scan in Normal Operating ModeMust use specific Low JAKE protocol for brain and kneeKNEE ARTHROSCOPY W/ ACL REPAIR Jose Jay DO A 08/24/19 Unknown Knee RFDAStart: 14-96-7931KGIT ARTHROSCOPY W/ ACL REPAIR Jose Jay DO 08/24/19 Unknown Knee RFDAStart: 69-34-4347MFER ARTHROSCOPY W/ ACL REPAIR Jose Jay DO 08/24/19 Unknown Knee RFDAStart: 63-22-6110IFYT ARTHROSCOPY W/ ACL REPAIR Jose Jay DO 08/24/19 Unknown Knee RFDAStart: 80-32-3105PEBL ARTHROSCOPY W/ ACL REPAIR Jose Jay DO 08/24/19 Unknown Knee R FDAStart: 64-41-4781TRNV ARTHROSCOPY W/ ACL REPAIR Jose Jay DO 08/24/19 Unknown Knee RFDAStart: 33-05-2299SCBO ARTHROSCOPY W/ ACL REPAIR Jose Jay DO 08/24/19 Unknown Knee RFDAStart: 54-90-4996Mbetmsv Unknown 04/10/17 Non Biological EyeFDAStart: 82-58-8507Nwuistm on above:Right eye Ahmed glaucoma valve 1-13-39Ggsctai Unknown 02/12/18 Non Biological Flank RFDAStart: 02-12-2018 Comment on above:[employer] Spinal Cord Stimulator SC-1200Linear Leads SC-2218-50very restrictive heating conditions. B1+juan luis less than or equal to 2.0 UT or JAKE Less than or equal to 0.2 W/kgcannot scan in Normal Operating ModeMust use specific Low JAKE protocol for brain and kneeKNEE ARTHROSCOPY W/ ACL REPAIR Jose Jay DO 08/24/19 Unknown Knee RFDAStart: 24-32-2177EDIV ARTHROSCOPY W/ ACL REPAIR Jose Jay DO 08/24/19 Unknown Knee R FDAStart: 92-83-6700GMHD ARTHROSCOPY W/ ACL REPAIR Jose Jay DO 08/24/19 Unknown Knee RFDAStart: 64-47-9483HQTU ARTHROSCOPY W/ ACL REPAIR Jose Jay DO 08/24/19 Unknown Knee RFDAStart: 73-13-3661TORO ARTHROSCOPY W/ ACL REPAIR Jose Jay DO 08/24/19 Unknown Knee RFDAStart: 92-60-0681VXXK ARTHROSCOPY W/ ACL REPAIR Jose Jay DO 08/24/19 Unknown Knee RFDAStart: 25-45-4688WTIG ARTHROSCOPY W/ ACL REPAIR Jose Jay DO 08/24/19 Unknown Knee RFDAStart: 52-41-4551Tozfcei Unknown 04/10/17 Non Biological EyeFDAStart: 03-46-9503Wymyuth on above:Right eye Ahmed glaucoma valve 2-30-96Ioifbvt Unknown 02/12/18 Non Biological Flank RFDAStart: 34-62-3669Csmhkeb on above:[employer] Spinal Cord Stimulator SC-1200Linear Leads SC-2218-50very restrictive heating conditions. B1+juan luis less than or equal to 2.0 UT or JAKE Less than or equal to 0.2 W/kgcannot scan in Normal Operating ModeMust use specific Low JAKE protocol for brain and kneeKNEE ARTHROSCOPY W/ ACL REPAIR Jose Jay DO 08/24/19 Unknown Knee RFDAStart: 86-59-4832NTNA ARTHROSCOPY W/ ACL REPAIR Jose Jay DO 08/24/19 Unknown Knee RFDAStart: 87-29-1384QMQH ARTHROSCOPY W/ ACL REPAIR Jose Jay DO 08/24/19 Unknown Knee RFDAStart: 73-45-5884DXLP ARTHROSCOPY W/ ACL REPAIR Jose Jay DO 08/24/19 Unknown Knee RFDAStart: 84-15-3493LTRC ARTHROSCOPY W/ ACL REPAIR Jose Jay DO 08/24/19 Unknown Knee R FDAStart: 15-43-7443ZVRO ARTHROSCOPY W/ ACL REPAIR Jose Jay DO 08/24/19 Unknown Knee RFDAStart: 46-38-5352ZUZB ARTHROSCOPY W/ ACL REPAIR Jose Jay DO 08/24/19 Unknown Knee RFDAStart: 77-12-3972Qhgtfnn Unknown 04/10/17 Non Biological EyeFDAStart: 72-22-7452Nlfiiki on above:Right eye Ahmed glaucoma valve 0-68-67Accdfor Unknown 02/12/18 Non Biological Flank RFDAStart: 02-12-2018 Comment on above:[employer] Spinal Cord Stimulator SC-1200Linear Leads SC-2218-50very restrictive heating conditions. B1+juan luis less than or equal to 2.0 UT or JAKE Less than or equal to 0.2 W/kgcannot scan in Normal Operating ModeMust use specific Low JAKE protocol for brain and kneeKNEE ARTHROSCOPY W/ ACL REPAIR Jose Jay DO 08/24/19 Unknown Knee RFDAStart: 17-23-0800CNHT ARTHROSCOPY W/ ACL REPAIR Jose Jay DO 08/24/19 Unknown Knee R FDAStart: 78-07-1673CADA ARTHROSCOPY W/ ACL REPAIR Jose Jay DO 08/24/19 Unknown Knee RFDAStart: 21-44-1373ZYDY ARTHROSCOPY W/ ACL REPAIR Jose Jay DO 08/24/19 Unknown Knee RFDAStart: 91-23-5443WAEQ ARTHROSCOPY W/ ACL REPAIR Jose Jay DO 08/24/19 Unknown Knee RFDAStart: 16-27-1733JUVZ ARTHROSCOPY W/ ACL REPAIR Jose Jay DO 08/24/19 Unknown Knee RFDAStart: 73-13-2509MGGC ARTHROSCOPY W/ ACL REPAIR Jose Jay DO 08/24/19 Unknown Knee RFDAStart: 38-60-5387Bimwgfy Unknown 04/10/17 Non Biological EyeFDAStart: 95-15-3627Apmwjih on above:Right eye Ahmed glaucoma valve 8-42-77Tenymsp Unknown 02/12/18 Non Biological Flank RFDAStart: 79-73-9762Vifjrnm on above:[employer] Spinal Cord Stimulator SC-1200Linear Leads SC-2218-50very restrictive heating conditions. B1+juan luis less than or equal to 2.0 UT or JAKE Less than or equal to 0.2 W/kgcannot scan in Normal Operating ModeMust use specific Low JAKE protocol for brain and kneeKNEE ARTHROSCOPY W/ ACL REPAIR Jose Jay DO 08/24/19 Unknown Knee RFDAStart: 57-69-5120CCVO ARTHROSCOPY W/ ACL REPAIR Jose Jay DO 08/24/19 Unknown Knee RFDAStart: 40-23-4418JBUH ARTHROSCOPY W/ ACL REPAIR Jose Jay DO 08/24/19 Unknown Knee RFDAStart: 71-90-7181PMAS ARTHROSCOPY W/ ACL REPAIR Jose Jay DO 08/24/19 Unknown Knee RFDAStart: 31-50-2160CRMC ARTHROSCOPY W/ ACL REPAIR Jose Jay DO 08/24/19 Unknown Knee R FDAStart: 49-42-2623CRCH ARTHROSCOPY W/ ACL REPAIR Jose Jay DO 08/24/19 Unknown Knee RFDAStart: 79-08-9053TNTR ARTHROSCOPY W/ ACL REPAIR Jose Jay DO 08/24/19 Unknown Knee RFDAStart: 13-85-9988Mviakyw Unknown 04/10/17 Non Biological EyeFDAStart: 42-00-8738Vshkijb on above:Right eye Ahmed glaucoma valve 6-06-59Bpqfluy Unknown 02/12/18 Non Biological Flank RFDAStart: 02-12-2018 Comment on above:[employer] Spinal Cord Stimulator SC-1200Linear Leads SC-2218-50very restrictive heating conditions. B1+juan luis less than or equal to 2.0 UT or JAKE Less than or equal to 0.2 W/kgcannot scan in Normal Operating ModeMust use specific Low JAKE protocol for brain and kneeKNEE ARTHROSCOPY W/ ACL REPAIR Jose Jay DO 08/24/19 Unknown Knee RFDAStart: 83-68-4077AEUT ARTHROSCOPY W/ ACL REPAIR Jose Jay DO 08/24/19 Unknown Knee R FDAStart: 91-81-2064SBJM ARTHROSCOPY W/ ACL REPAIR Jose Jay DO 08/24/19 Unknown Knee RFDAStart: 09-42-3618KAAK ARTHROSCOPY W/ ACL REPAIR Jose Jay DO 08/24/19 Unknown Knee RFDAStart: 80-31-5690AQQQ ARTHROSCOPY W/ ACL REPAIR Jose Jay DO 08/24/19 Unknown Knee RFDAStart: 75-02-8157MHTE ARTHROSCOPY W/ ACL REPAIR Jose Jay DO 08/24/19 Unknown Knee RFDAStart: 86-88-4184RYNE ARTHROSCOPY W/ ACL REPAIR Jose Jay DO 08/24/19 Unknown Knee RFDAStart: 36-50-8128Ukxqcew Unknown 04/10/17 Non Biological EyeFDAStart: 11-04-9591Hpascql on above:Right eye Ahmed glaucoma valve 2-61-38Vfxmwmx Unknown 02/12/18 Non Biological Flank RFDAStart: 94-92-1613Ocpozkz on above:[employer] Spinal Cord Stimulator SC-1200Linear Leads SC-2218-50very restrictive heating conditions. B1+juan luis less than or equal to 2.0 UT or JAKE Less than or equal to 0.2 W/kgcannot scan in Normal Operating ModeMust use specific Low JAKE protocol for brain and kneeKNEE ARTHROSCOPY W/ ACL REPAIR Jose Jay DO 08/24/19 Unknown Knee RFDAStart: 26-72-7153HTQW ARTHROSCOPY W/ ACL REPAIR Jose Jay DO A 08/24/19 Unknown Knee RFDAStart: 01-55-3555LLFM ARTHROSCOPY W/ ACL REPAIR Jose Jay DO A 08/24/19 Unknown Knee RFDAStart: 02-04-5380PVSV ARTHROSCOPY W/ ACL REPAIR Jose Jay DO A 08/24/19 Unknown Knee RFDAStart: 24-95-3727VOFA ARTHROSCOPY W/ ACL REPAIR Jose Jay DO 08/24/19 Unknown Knee R FDAStart: 17-20-6868CBLL ARTHROSCOPY W/ ACL REPAIR Jose Jay DO 08/24/19 Unknown Knee RFDAStart: 56-56-6816NYAX ARTHROSCOPY W/ ACL REPAIR Jose Jay DO 08/24/19 Unknown Knee RFDAStart: 60-00-1247Oocmmae Unknown 04/10/17 Non Biological EyeFDAStart: 03-08-2655Kvhegyo on above:Right eye Ahmed glaucoma valve 8-67-41Jwtyrfc Unknown 02/12/18 Non Biological Flank RFDAStart: 02-12-2018 Comment on above:[employer] Spinal Cord Stimulator SC-1200Linear Leads SC-2218-50very restrictive heating conditions. B1+juan luis less than or equal to 2.0 UT or JAKE Less than or equal to 0.2 W/kgcannot scan in Normal Operating ModeMust use specific Low JAKE protocol for brain and kneeKNEE ARTHROSCOPY W/ ACL REPAIR Jose Jay DO 08/24/19 Unknown Knee RFDAStart: 08-98-0458KXTJ ARTHROSCOPY W/ ACL REPAIR Jose Jay DO 08/24/19 Unknown Knee R FDAStart: 69-37-5416DOGT ARTHROSCOPY W/ ACL REPAIR Jose Jay DO 08/24/19 Unknown Knee RFDAStart: 85-46-6186FAUG ARTHROSCOPY W/ ACL REPAIR Jose Jay DO 08/24/19 Unknown Knee RFDAStart: 93-35-5141TGEJ ARTHROSCOPY W/ ACL REPAIR Jose Jay DO 08/24/19 Unknown Knee RFDAStart: 89-78-9852ZPNX ARTHROSCOPY W/ ACL REPAIR Jose Jay DO 08/24/19 Unknown Knee RFDAStart: 03-48-7096ZTRH ARTHROSCOPY W/ ACL REPAIR Jose Jay DO 08/24/19 Unknown Knee RFDAStart: 14-67-4895Nsqrmxm Unknown 04/10/17 Non Biological EyeFDAStart: 67-04-6098Ndfqdbo on above:Right eye Ahmed glaucoma valve 9-37-71Caygakv Unknown 02/12/18 Non Biological Flank RFDAStart: 81-77-5099Zgijukz on above:[employer] Spinal Cord Stimulator SC-1200Linear Leads SC-2218-50very restrictive heating conditions. B1+juan luis less than or equal to 2.0 UT or JAKE Less than or equal to 0.2 W/kgcannot scan in Normal Operating ModeMust use specific Low JAKE protocol for brain and kneeKNEE ARTHROSCOPY W/ ACL REPAIR Jose Jay DO 08/24/19 Unknown Knee RFDAStart: 70-54-6231CVIW ARTHROSCOPY W/ ACL REPAIR Jose Jay DO 08/24/19 Unknown Knee RFDAStart: 99-53-8837IJOQ ARTHROSCOPY W/ ACL REPAIR Jose Jay DO 08/24/19 Unknown Knee RFDAStart: 11-19-2562CWSX ARTHROSCOPY W/ ACL REPAIR Jose Jay DO 08/24/19 Unknown Knee RFDAStart: 56-32-1017IGTX ARTHROSCOPY W/ ACL REPAIR Jose Jay DO 08/24/19 Unknown Knee R FDAStart: 43-55-9226GMYY ARTHROSCOPY W/ ACL REPAIR Jose Jay DO 08/24/19 Unknown Knee RFDAStart: 70-04-0304ZJCS ARTHROSCOPY W/ ACL REPAIR Jose Jay DO 08/24/19 Unknown Knee RFDAStart: 45-08-0410Hxmsqtq Unknown 04/10/17 Non Biological EyeFDAStart: 49-17-8136Ismhzpp on above:Right eye Ahmed glaucoma valve 8-22-64Ydjdztx Unknown 02/12/18 Non Biological Flank RFDAStart: 02-12-2018 Comment on above:[employer] Spinal Cord Stimulator SC-1200Linear Leads SC-2218-50very restrictive heating conditions. B1+juan luis less than or equal to 2.0 UT or JAKE Less than or equal to 0.2 W/kgcannot scan in Normal Operating ModeMust use specific Low JAKE protocol for brain and kneeKNEE ARTHROSCOPY W/ ACL REPAIR Jose Jay DO 08/24/19 Unknown Knee RFDAStart: 61-43-9682RTME ARTHROSCOPY W/ ACL REPAIR Jose Jay DO 08/24/19 Unknown Knee R FDAStart: 38-06-7986DZJH ARTHROSCOPY W/ ACL REPAIR Jose Jay DO 08/24/19 Unknown Knee RFDAStart: 13-33-8714OLBQ ARTHROSCOPY W/ ACL REPAIR Jose Jay DO 08/24/19 Unknown Knee RFDAStart: 35-20-3311HEOZ ARTHROSCOPY W/ ACL REPAIR Jose Jay DO 08/24/19 Unknown Knee RFDAStart: 94-74-2122LPJP ARTHROSCOPY W/ ACL REPAIR Jose Jay DO 08/24/19 Unknown Knee RFDAStart: 53-16-7081IIRO ARTHROSCOPY W/ ACL REPAIR Jose Jay DO 08/24/19 Unknown Knee RFDAStart: 43-79-8534Wwweyhb Unknown 04/10/17 Non Biological EyeFDAStart: 20-93-1908Aufppfn on above:Right eye Ahmed glaucoma valve 9-08-26Exltmyh Unknown 02/12/18 Non Biological Flank RFDAStart: 59-12-7506Cpyskfi on above:[employer] Spinal Cord Stimulator SC-1200Linear Leads SC-2218-50very restrictive heating conditions. B1+juan luis less than or equal to 2.0 UT or JAKE Less than or equal to 0.2 W/kgcannot scan in Normal Operating ModeMust use specific Low JAKE protocol for brain and kneeKNEE ARTHROSCOPY W/ ACL REPAIR Jose Jay DO 08/24/19 Unknown Knee RFDAStart: 55-97-5810XCHC ARTHROSCOPY W/ ACL REPAIR Jose Jay DO 08/24/19 Unknown Knee RFDAStart: 73-48-4590GLOL ARTHROSCOPY W/ ACL REPAIR Jose Jay DO 08/24/19 Unknown Knee RFDAStart: 46-17-3054BFDD ARTHROSCOPY W/ ACL REPAIR Jose Jay DO 08/24/19 Unknown Knee RFDAStart: 52-06-1781QYMV ARTHROSCOPY W/ ACL REPAIR Jose Jay DO 08/24/19 Unknown Knee R FDAStart: 69-31-3681MZHU ARTHROSCOPY W/ ACL REPAIR Jose Jay DO 08/24/19 Unknown Knee RFDAStart: 35-39-0938GDOL ARTHROSCOPY W/ ACL REPAIR Jose Jay DO 08/24/19 Unknown Knee RFDAStart: 43-32-5422Qvbfsff Unknown 04/10/17 Non Biological EyeFDAStart: 17-69-9530Adirmwd on above:Right eye Ahmed glaucoma valve 8-86-57Tpaoulp Unknown 02/12/18 Non Biological Flank RFDAStart: 02-12-2018 Comment on above:[employer] Spinal Cord Stimulator SC-1200Linear Leads SC-2218-50very restrictive heating conditions. B1+juan luis less than or equal to 2.0 UT or JAKE Less than or equal to 0.2 W/kgcannot scan in Normal Operating ModeMust use specific Low JAKE protocol for brain and kneeKNEE ARTHROSCOPY W/ ACL REPAIR Jose Jay DO 08/24/19 Unknown Knee RFDAStart: 46-42-4911VXZQ ARTHROSCOPY W/ ACL REPAIR Jose Jay DO 08/24/19 Unknown Knee R FDAStart: 27-42-6956SFWS ARTHROSCOPY W/ ACL REPAIR Jose Jay DO 08/24/19 Unknown Knee RFDAStart: 73-03-3552ZNMG ARTHROSCOPY W/ ACL REPAIR Jose Jay DO 08/24/19 Unknown Knee RFDAStart: 63-49-3630JJLA ARTHROSCOPY W/ ACL REPAIR Jose Jay DO 08/24/19 Unknown Knee RFDAStart: 34-40-2154XDCR ARTHROSCOPY W/ ACL REPAIR Jose Jay DO 08/24/19 Unknown Knee RFDAStart: 53-44-4856IUEG ARTHROSCOPY W/ ACL REPAIR Jose Jay DO 08/24/19 Unknown Knee RFDAStart: 06-08-7723Asxjdki Unknown 04/10/17 Non Biological EyeFDAStart: 79-84-0080Qyengxo on above:Right eye Ahmed glaucoma valve 0-62-01Vnwaqog Unknown 02/12/18 Non Biological Flank RFDAStart: 18-38-3455Tarwxlk on above:[employer] Spinal Cord Stimulator SC-1200Linear Leads SC-2218-50very restrictive heating conditions. B1+juan luis less than or equal to 2.0 UT or JAKE Less than or equal to 0.2 W/kgcannot scan in Normal Operating ModeMust use specific Low JAKE protocol for brain and kneeKNEE ARTHROSCOPY W/ ACL REPAIR Jose Jay DO 08/24/19 Unknown Knee RFDAStart: 41-39-8089SLRF ARTHROSCOPY W/ ACL REPAIR Jose Jay DO 08/24/19 Unknown Knee RFDAStart: 52-00-2781HDHM ARTHROSCOPY W/ ACL REPAIR Jose Jay DO 08/24/19 Unknown Knee RFDAStart: 63-30-8791HTIH ARTHROSCOPY W/ ACL REPAIR Jose Jay DO 08/24/19 Unknown Knee RFDAStart: 07-22-0875AAPY ARTHROSCOPY W/ ACL REPAIR Jose Jay DO 08/24/19 Unknown Knee R FDAStart: 46-41-2152JRXQ ARTHROSCOPY W/ ACL REPAIR Jose Jay DO 08/24/19 Unknown Knee RFDAStart: 82-61-1361GJBP ARTHROSCOPY W/ ACL REPAIR Jose Jay DO 08/24/19 Unknown Knee RFDAStart: 48-20-1475Ujmdbfw Unknown 04/10/17 Non Biological EyeFDAStart: 37-44-1322Cmfnecw on above:Right eye Ahmed glaucoma valve 4-76-47Ucpdhyu Unknown 02/12/18 Non Biological Flank RFDAStart: 02-12-2018 Comment on above:[employer] Spinal Cord Stimulator SC-1200Linear Leads SC-2218-50very restrictive heating conditions. B1+juan luis less than or equal to 2.0 UT or JAKE Less than or equal to 0.2 W/kgcannot scan in Normal Operating ModeMust use specific Low JAKE protocol for brain and kneeKNEE ARTHROSCOPY W/ ACL REPAIR Jose Jay DO 08/24/19 Unknown Knee RFDAStart: 49-19-2642PXZR ARTHROSCOPY W/ ACL REPAIR Jose Jay DO 08/24/19 Unknown Knee R FDAStart: 81-34-9961AERY ARTHROSCOPY W/ ACL REPAIR Jose Jay DO 08/24/19 Unknown Knee RFDAStart: 33-77-6093VIEX ARTHROSCOPY W/ ACL REPAIR Jose Jay DO A 08/24/19 Unknown Knee RFDAStart: 26-32-9504VPMI ARTHROSCOPY W/ ACL REPAIR Jose Jay DO 08/24/19 Unknown Knee RFDAStart: 82-10-3178DCAS ARTHROSCOPY W/ ACL REPAIR Jose Jay DO 08/24/19 Unknown Knee RFDAStart: 11-81-5602AVQD ARTHROSCOPY W/ ACL REPAIR Jose Jay DO 08/24/19 Unknown Knee RFDAStart: 15-30-4517Ztaiutd Unknown 04/10/17 Non Biological EyeFDAStart: 61-61-4117Rxzngun on above:Right eye Ahmed glaucoma valve 7-46-21Vwwznpz Unknown 02/12/18 Non Biological Flank RFDAStart: 11-93-3009Eogwwiw on above:[employer] Spinal Cord Stimulator SC-1200Linear Leads SC-2218-50very restrictive heating conditions. B1+juan luis less than or equal to 2.0 UT or JAKE Less than or equal to 0.2 W/kgcannot scan in Normal Operating ModeMust use specific Low JAKE protocol for brain and kneeKNEE ARTHROSCOPY W/ ACL REPAIR Jose Jay DO 08/24/19 Unknown Knee RFDAStart: 81-34-8372HIDF ARTHROSCOPY W/ ACL REPAIR Jose Jay DO 08/24/19 Unknown Knee RFDAStart: 00-78-5013OLWG ARTHROSCOPY W/ ACL REPAIR Jose Jay DO 08/24/19 Unknown Knee RFDAStart: 91-33-0739CRLD ARTHROSCOPY W/ ACL REPAIR Jose Jay DO 08/24/19 Unknown Knee RFDAStart: 32-70-9258XJST ARTHROSCOPY W/ ACL REPAIR Jose Jay DO 08/24/19 Unknown Knee R FDAStart: 19-16-9329BOMS ARTHROSCOPY W/ ACL REPAIR Jose Jay DO 08/24/19 Unknown Knee RFDAStart: 33-69-7987ZQMR ARTHROSCOPY W/ ACL REPAIR Jose Jay DO 08/24/19 Unknown Knee RFDAStart: 68-57-5399Tmshjnf Unknown 04/10/17 Non Biological EyeFDAStart: 91-98-8027Oiobxuu on above:Right eye Ahmed glaucoma valve 4-08-84Khnmojq Unknown 02/12/18 Non Biological Flank RFDAStart: 02-12-2018 Comment on above:[employer] Spinal Cord Stimulator SC-1200Linear Leads SC-2218-50very restrictive heating conditions. B1+juan luis less than or equal to 2.0 UT or JAKE Less than or equal to 0.2 W/kgcannot scan in Normal Operating ModeMust use specific Low JAKE protocol for brain and kneeKNEE ARTHROSCOPY W/ ACL REPAIR Jose Jay DO 08/24/19 Unknown Knee RFDAStart: 50-30-6504BILJ ARTHROSCOPY W/ ACL REPAIR Jose Jay DO 08/24/19 Unknown Knee R FDAStart: 36-85-4627LSAN ARTHROSCOPY W/ ACL REPAIR Jose Jay DO 08/24/19 Unknown Knee RFDAStart: 32-44-9636QKEU ARTHROSCOPY W/ ACL REPAIR Jose Jay DO 08/24/19 Unknown Knee RFDAStart: 78-77-5207DEHT ARTHROSCOPY W/ ACL REPAIR Jose Jay DO 08/24/19 Unknown Knee RFDAStart: 78-16-1821GEYW ARTHROSCOPY W/ ACL REPAIR Jose Jay DO 08/24/19 Unknown Knee RFDAStart: 29-49-6048WMJN ARTHROSCOPY W/ ACL REPAIR Jose Jay DO 08/24/19 Unknown Knee RFDAStart: 31-74-3811Hmczakt Unknown 04/10/17 Non Biological EyeFDAStart: 49-94-6537Iqbqjnj on above:Right eye Ahmed glaucoma valve 2-87-34Hkxgchu Unknown 02/12/18 Non Biological Flank RFDAStart: 09-74-0870Wkcrllx on above:[employer] Spinal Cord Stimulator SC-1200Linear Leads SC-2218-50very restrictive heating conditions. B1+juan luis less than or equal to 2.0 UT or JAKE Less than or equal to 0.2 W/kgcannot scan in Normal Operating ModeMust use specific Low JAKE protocol for brain and kneeKNEE ARTHROSCOPY W/ ACL REPAIR Jose Jay DO 08/24/19 Unknown Knee RFDAStart: 22-29-0443HJUP ARTHROSCOPY W/ ACL REPAIR Jose Jay DO 08/24/19 Unknown Knee RFDAStart: 06-08-9005BHKU ARTHROSCOPY W/ ACL REPAIR Jose Jay DO 08/24/19 Unknown Knee RFDAStart: 71-10-4464BTAG ARTHROSCOPY W/ ACL REPAIR Jose Jay DO 08/24/19 Unknown Knee RFDAStart: 24-93-9781XDGI ARTHROSCOPY W/ ACL REPAIR Jose Jay DO 08/24/19 Unknown Knee R FDAStart: 04-75-1007VMYT ARTHROSCOPY W/ ACL REPAIR Jose Jay DO 08/24/19 Unknown Knee RFDAStart: 05-48-9538RDHQ ARTHROSCOPY W/ ACL REPAIR Jose Jay DO 08/24/19 Unknown Knee RFDAStart: 44-83-2525Mgztanh Unknown 04/10/17 Non Biological EyeFDAStart: 03-30-6557Hofqdmy on above:Right eye Ahmed glaucoma valve 6-51-62Idweydi Unknown 02/12/18 Non Biological Flank RFDAStart: 02-12-2018 Comment on above:[employer] Spinal Cord Stimulator SC-1200Linear Leads SC-2218-50very restrictive heating conditions. B1+juan luis less than or equal to 2.0 UT or JAKE Less than or equal to 0.2 W/kgcannot scan in Normal Operating ModeMust use specific Low JAKE protocol for brain and kneeKNEE ARTHROSCOPY W/ ACL REPAIR Jose Jay DO 08/24/19 Unknown Knee RFDAStart: 87-85-6773URXT ARTHROSCOPY W/ ACL REPAIR Jose Jay DO 08/24/19 Unknown Knee R FDAStart: 60-34-1140KXVM ARTHROSCOPY W/ ACL REPAIR Jose Jay DO 08/24/19 Unknown Knee RFDAStart: 06-83-9469BPAW ARTHROSCOPY W/ ACL REPAIR Jose Jay DO 08/24/19 Unknown Knee RFDAStart: 45-69-1125TMYL ARTHROSCOPY W/ ACL REPAIR Jose Jay DO 08/24/19 Unknown Knee RFDAStart: 50-61-2415LCGS ARTHROSCOPY W/ ACL REPAIR Jose Jay DO 08/24/19 Unknown Knee RFDAStart: 66-74-5798WKIO ARTHROSCOPY W/ ACL REPAIR Jose Jay DO 08/24/19 Unknown Knee RFDAStart: 91-37-8802Xasgshz Unknown 04/10/17 Non Biological EyeFDAStart: 51-58-2608Sikbjhp on above:Right eye Ahmed glaucoma valve 7-44-38Vhzdigi Unknown 02/12/18 Non Biological Flank RFDAStart: 10-17-3856Zsjzzuf on above:[employer] Spinal Cord Stimulator SC-1200Linear Leads SC-2218-50very restrictive heating conditions. B1+juan luis less than or equal to 2.0 UT or JAKE Less than or equal to 0.2 W/kgcannot scan in Normal Operating ModeMust use specific Low JAKE protocol for brain and kneeKNEE ARTHROSCOPY W/ ACL REPAIR Jose Jay DO 08/24/19 Unknown Knee RFDAStart: 39-51-4727QSND ARTHROSCOPY W/ ACL REPAIR Jose Jay DO 08/24/19 Unknown Knee RFDAStart: 75-65-3493ARJB ARTHROSCOPY W/ ACL REPAIR Jose Jay DO 08/24/19 Unknown Knee RFDAStart: 64-12-6496LNCR ARTHROSCOPY W/ ACL REPAIR Jose Jay DO 08/24/19 Unknown Knee RFDAStart: 59-03-1753FWNC ARTHROSCOPY W/ ACL REPAIR Jose Jay DO 08/24/19 Unknown Knee R FDAStart: 99-50-0323YLHH ARTHROSCOPY W/ ACL REPAIR Jose Jay DO 08/24/19 Unknown Knee RFDAStart: 83-98-5234IIUK ARTHROSCOPY W/ ACL REPAIR Jose Jay DO 08/24/19 Unknown Knee RFDAStart: 46-75-6773Dojmfcy Unknown 04/10/17 Non Biological EyeFDAStart: 76-83-2396Xqvwinu on above:Right eye Ahmed glaucoma valve 0-36-09Errdbhf Unknown 02/12/18 Non Biological Flank RFDAStart: 02-12-2018 Comment on above:[employer] Spinal Cord Stimulator SC-1200Linear Leads SC-2218-50very restrictive heating conditions. B1+juan luis less than or equal to 2.0 UT or JAKE Less than or equal to 0.2 W/kgcannot scan in Normal Operating ModeMust use specific Low JAKE protocol for brain and kneeKNEE ARTHROSCOPY W/ ACL REPAIR Jose Jay DO 08/24/19 Unknown Knee RFDAStart: 35-61-4181SREI ARTHROSCOPY W/ ACL REPAIR Jose Jay DO 08/24/19 Unknown Knee R FDAStart: 88-41-5154QHYD ARTHROSCOPY W/ ACL REPAIR Jose Jay DO 08/24/19 Unknown Knee RFDAStart: 50-14-4899GXZU ARTHROSCOPY W/ ACL REPAIR Jose Jay DO 08/24/19 Unknown Knee RFDAStart: 96-34-8224DGDD ARTHROSCOPY W/ ACL REPAIR Jose Jay DO 08/24/19 Unknown Knee RFDAStart: 24-77-7727JJYQ ARTHROSCOPY W/ ACL REPAIR Jose Jay DO 08/24/19 Unknown Knee RFDAStart: 48-36-6172EVYZ ARTHROSCOPY W/ ACL REPAIR Jose Jay DO 08/24/19 Unknown Knee RFDAStart: 74-95-7730Wmgmrpr Unknown 04/10/17 Non Biological EyeFDAStart: 53-96-3132Augshyw on above:Right eye Ahmed glaucoma valve 4-16-01Fhzkngz Unknown 02/12/18 Non Biological Flank RFDAStart: 40-89-6059Ydlwchm on above:[employer] Spinal Cord Stimulator SC-1200Linear Leads SC-2218-50very restrictive heating conditions. B1+juan luis less than or equal to 2.0 UT or JAKE Less than or equal to 0.2 W/kgcannot scan in Normal Operating ModeMust use specific Low JAKE protocol for brain and kneeKNEE ARTHROSCOPY W/ ACL REPAIR Jose Jay DO 08/24/19 Unknown Knee RFDAStart: 07-79-9880UZIX ARTHROSCOPY W/ ACL REPAIR Jose Jay DO 08/24/19 Unknown Knee RFDAStart: 70-06-5523IKOT ARTHROSCOPY W/ ACL REPAIR Jose Jay DO 08/24/19 Unknown Knee RFDAStart: 51-57-5237LBCS ARTHROSCOPY W/ ACL REPAIR Jose Jay DO 08/24/19 Unknown Knee RFDAStart: 17-96-4234YRAJ ARTHROSCOPY W/ ACL REPAIR Jose Jay DO 08/24/19 Unknown Knee R FDAStart: 68-07-7407OLCW ARTHROSCOPY W/ ACL REPAIR Jose Jay DO 08/24/19 Unknown Knee RFDAStart: 09-68-2616TEIU ARTHROSCOPY W/ ACL REPAIR Jose Jay DO 08/24/19 Unknown Knee RFDAStart: 65-19-1632Pwujqna Unknown 04/10/17 Non Biological EyeFDAStart: 31-75-3314Hqmvvku on above:Right eye Ahmed glaucoma valve 4-15-45Nzdyhyt Unknown 02/12/18 Non Biological Flank RFDAStart: 02-12-2018 Comment on above:[employer] Spinal Cord Stimulator SC-1200Linear Leads SC-2218-50very restrictive heating conditions. B1+juan luis less than or equal to 2.0 UT or JAKE Less than or equal to 0.2 W/kgcannot scan in Normal Operating ModeMust use specific Low JAKE protocol for brain and kneeKNEE ARTHROSCOPY W/ ACL REPAIR Jose Jay DO 08/24/19 Unknown Knee RFDAStart: 28-49-7281SPGZ ARTHROSCOPY W/ ACL REPAIR Jose Jay DO 08/24/19 Unknown Knee R FDAStart: 07-32-7499EHKO ARTHROSCOPY W/ ACL REPAIR Jose Jay DO 08/24/19 Unknown Knee RFDAStart: 06-40-0326HIJR ARTHROSCOPY W/ ACL REPAIR Jose Jay DO 08/24/19 Unknown Knee RFDAStart: 45-62-1794EZPR ARTHROSCOPY W/ ACL REPAIR Jose Jay DO 08/24/19 Unknown Knee RFDAStart: 25-99-3688CHFE ARTHROSCOPY W/ ACL REPAIR Jose Jay DO 08/24/19 Unknown Knee RFDAStart: 38-17-3808FMXT ARTHROSCOPY W/ ACL REPAIR Jose Jay DO 08/24/19 Unknown Knee RFDAStart: 44-06-4402Mmyefwk Unknown 04/10/17 Non Biological EyeFDAStart: 81-08-3279Lvyawag on above:Right eye Ahmed glaucoma valve 9-00-52Dmlnlcs Unknown 02/12/18 Non Biological Flank RFDAStart: 47-03-8516Luozukm on above:[employer] Spinal Cord Stimulator SC-1200Linear Leads SC-2218-50very restrictive heating conditions. B1+juan luis less than or equal to 2.0 UT or JAKE Less than or equal to 0.2 W/kgcannot scan in Normal Operating ModeMust use specific Low JAKE protocol for brain and kneeKNEE ARTHROSCOPY W/ ACL REPAIR Jose Jay DO 08/24/19 Unknown Knee RFDAStart: 63-36-2244ENXI ARTHROSCOPY W/ ACL REPAIR Jose Jay DO 08/24/19 Unknown Knee RFDAStart: 36-56-6822UUKR ARTHROSCOPY W/ ACL REPAIR Jose Jay DO 08/24/19 Unknown Knee RFDAStart: 49-15-2135MOBC ARTHROSCOPY W/ ACL REPAIR Jose Jay DO 08/24/19 Unknown Knee RFDAStart: 31-12-4771HAQS ARTHROSCOPY W/ ACL REPAIR Jose Jay DO 08/24/19 Unknown Knee R FDAStart: 83-81-2287LZHU ARTHROSCOPY W/ ACL REPAIR Jose Jay DO 08/24/19 Unknown Knee RFDAStart: 41-50-4771FUKG ARTHROSCOPY W/ ACL REPAIR Jose Jay DO 08/24/19 Unknown Knee RFDAStart: 07-67-6746Lmfjdgs Unknown 04/10/17 Non Biological EyeFDAStart: 42-88-2308Vbndork on above:Right eye Ahmed glaucoma valve 7-96-67Aefmlcy Unknown 02/12/18 Non Biological Flank RFDAStart: 02-12-2018 Comment on above:[employer] Spinal Cord Stimulator SC-1200Linear Leads SC-2218-50very restrictive heating conditions. B1+juan luis less than or equal to 2.0 UT or JAKE Less than or equal to 0.2 W/kgcannot scan in Normal Operating ModeMust use specific Low JAKE protocol for brain and kneeKNEE ARTHROSCOPY W/ ACL REPAIR Jose Jay DO 08/24/19 Unknown Knee RFDAStart: 72-34-1630ZXJG ARTHROSCOPY W/ ACL REPAIR Jose Jay DO 08/24/19 Unknown Knee R FDAStart: 39-46-2358JEHM ARTHROSCOPY W/ ACL REPAIR Jose Jay DO 08/24/19 Unknown Knee RFDAStart: 99-86-4349OBYJ ARTHROSCOPY W/ ACL REPAIR Jose Jay DO 08/24/19 Unknown Knee RFDAStart: 19-59-3072YTQQ ARTHROSCOPY W/ ACL REPAIR Jose Jay DO 08/24/19 Unknown Knee RFDAStart: 50-23-1385ESOM ARTHROSCOPY W/ ACL REPAIR Jose Jay DO 08/24/19 Unknown Knee RFDAStart: 64-09-3088KSEU ARTHROSCOPY W/ ACL REPAIR Jose Jay DO 08/24/19 Unknown Knee RFDAStart: 43-82-5656Jagugkz Unknown 04/10/17 Non Biological EyeFDAStart: 25-23-7019Thcbkrg on above:Right eye Ahmed glaucoma valve 2-80-20Yzrssfv Unknown 02/12/18 Non Biological Flank RFDAStart: 62-34-2264Dklyqmt on above:[employer] Spinal Cord Stimulator SC-1200Linear Leads SC-2218-50very restrictive heating conditions. B1+juan luis less than or equal to 2.0 UT or JKAE Less than or equal to 0.2 W/kgcannot scan in Normal Operating ModeMust use specific Low JAKE protocol for brain and kneeKNEE ARTHROSCOPY W/ ACL REPAIR Jose Jay DO 08/24/19 Unknown Knee RFDAStart: 61-76-4805UEZX ARTHROSCOPY W/ ACL REPAIR Jose Jay DO 08/24/19 Unknown Knee RFDAStart: 70-74-5176XRMZ ARTHROSCOPY W/ ACL REPAIR Jose Jay DO 08/24/19 Unknown Knee RFDAStart: 50-30-0926RVJY ARTHROSCOPY W/ ACL REPAIR Jose Jay DO 08/24/19 Unknown Knee RFDAStart: 25-02-7166ZLDN ARTHROSCOPY W/ ACL REPAIR Jose Jay DO 08/24/19 Unknown Knee R FDAStart: 36-16-1599GPVH ARTHROSCOPY W/ ACL REPAIR Jose Jay DO 08/24/19 Unknown Knee RFDAStart: 63-30-6034DKNB ARTHROSCOPY W/ ACL REPAIR Jose Jay DO 08/24/19 Unknown Knee RFDAStart: 18-72-1511Qrmwdno Unknown 04/10/17 Non Biological EyeFDAStart: 31-62-0214Xlzhfhd on above:Right eye Ahmed glaucoma valve 3-64-46Ubrychn Unknown 02/12/18 Non Biological Flank RFDAStart: 02-12-2018 Comment on above:[employer] Spinal Cord Stimulator SC-1200Linear Leads SC-2218-50very restrictive heating conditions. B1+juan luis less than or equal to 2.0 UT or JAKE Less than or equal to 0.2 W/kgcannot scan in Normal Operating ModeMust use specific Low JAKE protocol for brain and kneeKNEE ARTHROSCOPY W/ ACL REPAIR Jose Jay DO 08/24/19 Unknown Knee RFDAStart: 64-80-2760JADS ARTHROSCOPY W/ ACL REPAIR Jose Jay DO 08/24/19 Unknown Knee R FDAStart: 26-92-7279WZVB ARTHROSCOPY W/ ACL REPAIR Jose Jay DO 08/24/19 Unknown Knee RFDAStart: 65-97-5544GXBD ARTHROSCOPY W/ ACL REPAIR Jose Jay DO 08/24/19 Unknown Knee RFDAStart: 43-71-5037RUPJ ARTHROSCOPY W/ ACL REPAIR Jose Jay DO 08/24/19 Unknown Knee RFDAStart: 81-72-6594CAOJ ARTHROSCOPY W/ ACL REPAIR Jose Jay DO 08/24/19 Unknown Knee RFDAStart: 60-51-5019OJEC ARTHROSCOPY W/ ACL REPAIR Jose Jay DO 08/24/19 Unknown Knee RFDAStart: 93-02-4268Kslbjjd Unknown 04/10/17 Non Biological EyeFDAStart: 72-88-1334Nlztlrp on above:Right eye Ahmed glaucoma valve 2-52-60Aurthjk Unknown 02/12/18 Non Biological Flank RFDAStart: 85-95-6622Zduezan on above:[employer] Spinal Cord Stimulator SC-1200Linear Leads SC-2218-50very restrictive heating conditions. B1+juan luis less than or equal to 2.0 UT or JAKE Less than or equal to 0.2 W/kgcannot scan in Normal Operating ModeMust use specific Low JAKE protocol for brain and kneeKNEE ARTHROSCOPY W/ ACL REPAIR Jose Jay DO 08/24/19 Unknown Knee RFDAStart: 58-51-5880NAJL ARTHROSCOPY W/ ACL REPAIR Jose Jay DO 08/24/19 Unknown Knee RFDAStart: 98-91-0369DLNB ARTHROSCOPY W/ ACL REPAIR Jose Jay DO 08/24/19 Unknown Knee RFDAStart: 63-40-7254VXAS ARTHROSCOPY W/ ACL REPAIR Jose Jay DO 08/24/19 Unknown Knee RFDAStart: 15-63-8759YUTE ARTHROSCOPY W/ ACL REPAIR Jose Jay DO 08/24/19 Unknown Knee R FDAStart: 26-73-3477LKAN ARTHROSCOPY W/ ACL REPAIR Jose Jay DO 08/24/19 Unknown Knee RFDAStart: 88-52-5336LDEQ ARTHROSCOPY W/ ACL REPAIR Jose Jay DO 08/24/19 Unknown Knee RFDAStart: 50-19-6290Vkbpvtn Unknown 04/10/17 Non Biological EyeFDAStart: 99-07-2685Fffzsem on above:Right eye Ahmed glaucoma valve 7-11-91Kuzzvty Unknown 02/12/18 Non Biological Flank RFDAStart: 02-12-2018 Comment on above:[employer] Spinal Cord Stimulator SC-1200Linear Leads SC-2218-50very restrictive heating conditions. B1+juan luis less than or equal to 2.0 UT or JAKE Less than or equal to 0.2 W/kgcannot scan in Normal Operating ModeMust use specific Low JAKE protocol for brain and kneeKNEE ARTHROSCOPY W/ ACL REPAIR Jose Jay DO 08/24/19 Unknown Knee RFDAStart: 87-26-7072IEEU ARTHROSCOPY W/ ACL REPAIR Jose Jay DO 08/24/19 Unknown Knee R FDAStart: 35-68-2662BWSD ARTHROSCOPY W/ ACL REPAIR Jose Jay DO 08/24/19 Unknown Knee RFDAStart: 35-02-2114QQEC ARTHROSCOPY W/ ACL REPAIR Jose Jay DO 08/24/19 Unknown Knee RFDAStart: 31-72-4617AEIH ARTHROSCOPY W/ ACL REPAIR Jose Jay DO 08/24/19 Unknown Knee RFDAStart: 19-63-9573RWTJ ARTHROSCOPY W/ ACL REPAIR Jose Jay DO 08/24/19 Unknown Knee RFDAStart: 25-27-4449XXEQ ARTHROSCOPY W/ ACL REPAIR Jose Jay DO 08/24/19 Unknown Knee RFDAStart: 77-21-7510Craruma Unknown 04/10/17 Non Biological EyeFDAStart: 14-31-1437Qpxfojk on above:Right eye Ahmed glaucoma valve 8-73-68Dwqpmyb Unknown 02/12/18 Non Biological Flank RFDAStart: 35-20-1545Aznuhhy on above:[employer] Spinal Cord Stimulator SC-1200Linear Leads SC-2218-50very restrictive heating conditions. B1+juan luis less than or equal to 2.0 UT or JAKE Less than or equal to 0.2 W/kgcannot scan in Normal Operating ModeMust use specific Low JAKE protocol for brain and kneeKNEE ARTHROSCOPY W/ ACL REPAIR Jose Jay DO 08/24/19 Unknown Knee RFDAStart: 97-80-6973OOHC ARTHROSCOPY W/ ACL REPAIR Jose Jay DO 08/24/19 Unknown Knee RFDAStart: 56-00-1182MQTH ARTHROSCOPY W/ ACL REPAIR Jose Jay DO 08/24/19 Unknown Knee RFDAStart: 01-10-5956VUEH ARTHROSCOPY W/ ACL REPAIR Jose Jay DO 08/24/19 Unknown Knee RFDAStart: 85-36-1685TNSR ARTHROSCOPY W/ ACL REPAIR Jose Jay DO 08/24/19 Unknown Knee R FDAStart: 35-68-7427BZSZ ARTHROSCOPY W/ ACL REPAIR Jose Jay DO 08/24/19 Unknown Knee RFDAStart: 88-24-4297UXUO ARTHROSCOPY W/ ACL REPAIR Jose Jay DO 08/24/19 Unknown Knee RFDAStart: 83-61-9956Thoweqf Unknown 04/10/17 Non Biological EyeFDAStart: 83-92-2913Qcffvqc on above:Right eye Ahmed glaucoma valve 1-98-46Chfesia Unknown 02/12/18 Non Biological Flank RFDAStart: 02-12-2018 Comment on above:[employer] Spinal Cord Stimulator SC-1200Linear Leads SC-2218-50very restrictive heating conditions. B1+juan luis less than or equal to 2.0 UT or JAKE Less than or equal to 0.2 W/kgcannot scan in Normal Operating ModeMust use specific Low JAKE protocol for brain and kneeKNEE ARTHROSCOPY W/ ACL REPAIR Jose Jay DO 08/24/19 Unknown Knee RFDAStart: 83-35-4379BUXW ARTHROSCOPY W/ ACL REPAIR Jose Jay DO 08/24/19 Unknown Knee R FDAStart: 13-46-0728GYQM ARTHROSCOPY W/ ACL REPAIR Jose Jay DO 08/24/19 Unknown Knee RFDAStart: 78-42-9856ZQJP ARTHROSCOPY W/ ACL REPAIR Jose Jay DO 08/24/19 Unknown Knee RFDAStart: 06-96-0456RHXJ ARTHROSCOPY W/ ACL REPAIR Jose Jay DO 08/24/19 Unknown Knee RFDAStart: 28-65-1187CEAP ARTHROSCOPY W/ ACL REPAIR Jose Jay DO 08/24/19 Unknown Knee RFDAStart: 97-08-0895OZJT ARTHROSCOPY W/ ACL REPAIR Jose Jay DO 08/24/19 Unknown Knee RFDAStart: 10-88-7792Gzhrywg Unknown 04/10/17 Non Biological EyeFDAStart: 47-02-9621Izcqwbi on above:Right eye Ahmed glaucoma valve 7-34-39Fprqzta Unknown 02/12/18 Non Biological Flank RFDAStart: 51-97-7169Yemghuc on above:[employer] Spinal Cord Stimulator SC-1200Linear Leads [place]-2218-50very restrictive heating conditions. B1+juan luis less than or equal to 2.0 UT or JAKE Less than or equal to 0.2 W/kgcannot scan in Normal Operating ModeMust use specific Low JAKE protocol for brain and kneeKNEE ARTHROSCOPY W/ ACL REPAIR Jose Jay DO 08/24/19 Unknown Knee RFDAStart: 61-13-4228QTNV ARTHROSCOPY W/ ACL REPAIR Jose Jay DO 08/24/19 Unknown Knee RFDAStart: 89-76-5807FIST ARTHROSCOPY W/ ACL REPAIR Jose Jay DO 08/24/19 Unknown Knee RFDAStart: 49-53-6394DHCB ARTHROSCOPY W/ ACL REPAIR Jose Jay DO 08/24/19 Unknown Knee RFDAStart: 11-52-5004WQMU ARTHROSCOPY W/ ACL REPAIR Jose Jay DO 08/24/19 Unknown Knee R FDAStart: 13-72-1004GNLK ARTHROSCOPY W/ ACL REPAIR Jose Jay DO 08/24/19 Unknown Knee RFDAStart: 57-86-1336OVHG ARTHROSCOPY W/ ACL REPAIR Jose Jay DO 08/24/19 Unknown Knee RFDAStart: 03-42-6247Wjuhznd Unknown 04/10/17 Non Biological EyeFDAStart: 58-44-1202Hkdxgbl on above:Right eye Ahmed glaucoma valve 9-56-88Iazcjzx Unknown 02/12/18 Non Biological Flank RFDAStart: 02-12-2018 Comment on above:[employer] Spinal Cord Stimulator SC-1200Linear Leads SC-2218-50very restrictive heating conditions. B1+juan luis less than or equal to 2.0 UT or JAKE Less than or equal to 0.2 W/kgcannot scan in Normal Operating ModeMust use specific Low JAKE protocol for brain and kneeKNEE ARTHROSCOPY W/ ACL REPAIR Jose Jay DO A 08/24/19 Unknown Knee RFDAStart: 62-00-2947LTLG ARTHROSCOPY W/ ACL REPAIR Pierre LLOYD, Jose A 08/24/19 Unknown Knee R FDAStart: 18-60-6213YEXU ARTHROSCOPY W/ ACL REPAIR Pierre LLOYD, Jose A 08/24/19 Unknown Knee RFDAStart: 87-56-0186KHWD ARTHROSCOPY W/ ACL REPAIR Pierre DO, Jose A 08/24/19 Unknown Knee RFDAStart: 32-86-4125XYFK ARTHROSCOPY W/ ACL REPAIR Pierre LLOYD, Jose A 08/24/19 Unknown Knee RFDAStart: 64-20-0687POVF ARTHROSCOPY W/ ACL REPAIR Pierre LLOYD, Jose A 08/24/19 Unknown Knee RFDAStart: 16-20-5946YBZR ARTHROSCOPY W/ ACL REPAIR Jose Jay DO A 08/24/19 Unknown Knee RFDAStart: 62-56-9512Ndmqraj Unknown 04/10/17 Non Biological EyeFDAStart: 61-87-7652Ebemsed on above:Right eye Ahmed glaucoma valve 1-44-82Jdnhmag Unknown 02/12/18 Non Biological Flank RFDAStart: 03-57-2581Iafythx on above:[employer] Spinal Cord Stimulator SC-1200Linear Leads SC-2218-50very restrictive heating conditions. B1+juan luis less than or equal to 2.0 UT or JAKE Less than or equal to 0.2 W/kgcannot scan in Normal Operating ModeMust use specific Low JAKE protocol for brain and kneeKNEE ARTHROSCOPY W/ ACL REPAIR Jose Jay DO 08/24/19 Unknown Knee RFDAStart: 40-10-7526LAUX ARTHROSCOPY W/ ACL REPAIR Jose Jay DO 08/24/19 Unknown Knee RFDAStart: 73-56-3222RUVU ARTHROSCOPY W/ ACL REPAIR Jose Jay DO 08/24/19 Unknown Knee RFDAStart: 33-35-0151DYWF ARTHROSCOPY W/ ACL REPAIR Jose Jay DO 08/24/19 Unknown Knee RFDAStart: 02-03-6114WXQZ ARTHROSCOPY W/ ACL REPAIR Jose Jay DO 08/24/19 Unknown Knee R FDAStart: 38-35-4477EBQX ARTHROSCOPY W/ ACL REPAIR Jose Jay DO 08/24/19 Unknown Knee RFDAStart: 85-87-6634CKUB ARTHROSCOPY W/ ACL REPAIR Jose Jay DO 08/24/19 Unknown Knee RFDAStart: 47-68-2568Gyrhglq Unknown 04/10/17 Non Biological EyeFDAStart: 78-35-5244Zoyvkgh on above:Right eye Ahmed glaucoma valve 9-70-95Hyndvew Unknown 02/12/18 Non Biological Flank RFDAStart: 02-12-2018 Comment on above:[employer] Spinal Cord Stimulator SC-1200Linear Leads SC-2218-50very restrictive heating conditions. B1+juan luis less than or equal to 2.0 UT or JAKE Less than or equal to 0.2 W/kgcannot scan in Normal Operating ModeMust use specific Low JAKE protocol for brain and kneeKNEE ARTHROSCOPY W/ ACL REPAIR Jose Jay DO 08/24/19 Unknown Knee RFDAStart: 90-30-6715VSAZ ARTHROSCOPY W/ ACL REPAIR Jose Jay DO 08/24/19 Unknown Knee R FDAStart: 83-62-7667ZEUT ARTHROSCOPY W/ ACL REPAIR Jose Jay DO 08/24/19 Unknown Knee RFDAStart: 04-08-7911VYFN ARTHROSCOPY W/ ACL REPAIR Jose Jay DO 08/24/19 Unknown Knee RFDAStart: 95-85-2160LRVR ARTHROSCOPY W/ ACL REPAIR Jose Jay DO 08/24/19 Unknown Knee RFDAStart: 70-78-0603LVRS ARTHROSCOPY W/ ACL REPAIR Jose Jay DO 08/24/19 Unknown Knee RFDAStart: 52-53-0841ZYJU ARTHROSCOPY W/ ACL REPAIR Jose Jay DO 08/24/19 Unknown Knee RFDAStart: 98-72-5374Jmunbwa Unknown 04/10/17 Non Biological EyeFDAStart: 80-62-0591Zxmydon on above:Right eye Ahmed glaucoma valve 5-01-62Qhabzjx Unknown 02/12/18 Non Biological Flank RFDAStart: 25-93-1456Wewkuma on above:[employer] Spinal Cord Stimulator SC-1200Linear Leads SC-2218-50very restrictive heating conditions. B1+juan luis less than or equal to 2.0 UT or JAKE Less than or equal to 0.2 W/kgcannot scan in Normal Operating ModeMust use specific Low JAKE protocol for brain and kneeKNEE ARTHROSCOPY W/ ACL REPAIR Jose Jay DO 08/24/19 Unknown Knee RFDAStart: 88-63-3743DOVF ARTHROSCOPY W/ ACL REPAIR Jose Jay DO 08/24/19 Unknown Knee RFDAStart: 26-09-3190AYNV ARTHROSCOPY W/ ACL REPAIR Jose Jay DO 08/24/19 Unknown Knee RFDAStart: 58-42-1985UWRX ARTHROSCOPY W/ ACL REPAIR Jose Jay DO 08/24/19 Unknown Knee RFDAStart: 88-49-9341FXJP ARTHROSCOPY W/ ACL REPAIR Jose Jay DO 08/24/19 Unknown Knee R FDAStart: 07-61-0247VELD ARTHROSCOPY W/ ACL REPAIR Jose Jay DO 08/24/19 Unknown Knee RFDAStart: 50-15-6451CEED ARTHROSCOPY W/ ACL REPAIR Jose Jay DO 08/24/19 Unknown Knee RFDAStart: 45-91-7688Rgoijxd Unknown 04/10/17 Non Biological EyeFDAStart: 62-67-7930Viykqnh on above:Right eye Ahmed glaucoma valve 4-69-00Ybbszov Unknown 02/12/18 Non Biological Flank RFDAStart: 02-12-2018 Comment on above:[employer] Spinal Cord Stimulator SC-1200Linear Leads SC-2218-50very restrictive heating conditions. B1+juan luis less than or equal to 2.0 UT or JAKE Less than or equal to 0.2 W/kgcannot scan in Normal Operating ModeMust use specific Low JAKE protocol for brain and kneeKNEE ARTHROSCOPY W/ ACL REPAIR Jose Jay DO 08/24/19 Unknown Knee RFDAStart: 87-47-1962GILJ ARTHROSCOPY W/ ACL REPAIR Jose Jay DO 08/24/19 Unknown Knee R FDAStart: 03-11-0809YBDA ARTHROSCOPY W/ ACL REPAIR Jose Jay DO 08/24/19 Unknown Knee RFDAStart: 98-00-1589XWIX ARTHROSCOPY W/ ACL REPAIR Jose Jay DO 08/24/19 Unknown Knee RFDAStart: 36-62-1641DROU ARTHROSCOPY W/ ACL REPAIR Jose Jay DO 08/24/19 Unknown Knee RFDAStart: 34-07-7970UCFE ARTHROSCOPY W/ ACL REPAIR Jose Jay DO 08/24/19 Unknown Knee RFDAStart: 61-35-9844QOPB ARTHROSCOPY W/ ACL REPAIR Jose Jay DO 08/24/19 Unknown Knee RFDAStart: 00-28-3156Kgwtyln Unknown 04/10/17 Non Biological EyeFDAStart: 70-47-2558Pwnmjlq on above:Right eye Ahmed glaucoma valve 2-60-85Jrgszbo Unknown 02/12/18 Non Biological Flank RFDAStart: 36-93-6276Ygfbycf on above:[employer] Spinal Cord Stimulator SC-1200Linear Leads SC-2218-50very restrictive heating conditions. B1+juan luis less than or equal to 2.0 UT or JAKE Less than or equal to 0.2 W/kgcannot scan in Normal Operating ModeMust use specific Low JAKE protocol for brain and kneeKNEE ARTHROSCOPY W/ ACL REPAIR Jose Jay DO 08/24/19 Unknown Knee RFDAStart: 22-29-0249MVTH ARTHROSCOPY W/ ACL REPAIR Jose Jay DO 08/24/19 Unknown Knee RFDAStart: 92-97-7834SJQM ARTHROSCOPY W/ ACL REPAIR Jose Jay DO 08/24/19 Unknown Knee RFDAStart: 55-45-7685YYJD ARTHROSCOPY W/ ACL REPAIR Jose Jay DO 08/24/19 Unknown Knee RFDAStart: 33-73-5750PVJT ARTHROSCOPY W/ ACL REPAIR Jose Jay DO 08/24/19 Unknown Knee R FDAStart: 51-77-1661AJNI ARTHROSCOPY W/ ACL REPAIR Jose Jay DO 08/24/19 Unknown Knee RFDAStart: 18-02-8909PGMM ARTHROSCOPY W/ ACL REPAIR Jose Jay DO 08/24/19 Unknown Knee RFDAStart: 88-62-8718Qsmafzu Unknown 04/10/17 Non Biological EyeFDAStart: 55-85-4084Oouwskh on above:Right eye Ahmed glaucoma valve 8-56-32Mkpvgsy Unknown 02/12/18 Non Biological Flank RFDAStart: 02-12-2018 Comment on above:[employer] Spinal Cord Stimulator SC-1200Linear Leads SC-2218-50very restrictive heating conditions. B1+juan luis less than or equal to 2.0 UT or JAKE Less than or equal to 0.2 W/kgcannot scan in Normal Operating ModeMust use specific Low JAKE protocol for brain and kneeKNEE ARTHROSCOPY W/ ACL REPAIR Jose Jay DO 08/24/19 Unknown Knee RFDAStart: 52-08-2126BTRN ARTHROSCOPY W/ ACL REPAIR Jose Jay DO 08/24/19 Unknown Knee R FDAStart: 17-30-0117HQKL ARTHROSCOPY W/ ACL REPAIR Jose Jay DO 08/24/19 Unknown Knee RFDAStart: 47-34-7022UVFH ARTHROSCOPY W/ ACL REPAIR Jose Jay DO 08/24/19 Unknown Knee RFDAStart: 52-92-6259KGGP ARTHROSCOPY W/ ACL REPAIR Jose Jay DO 08/24/19 Unknown Knee RFDAStart: 57-30-3278HVJW ARTHROSCOPY W/ ACL REPAIR Jose Jay DO 08/24/19 Unknown Knee RFDAStart: 50-33-1186AKLV ARTHROSCOPY W/ ACL REPAIR Jose Jay DO 08/24/19 Unknown Knee RFDAStart: 06-05-4215Qtkkief Unknown 04/10/17 Non Biological EyeFDAStart: 37-09-4281Ngkqywo on above:Right eye Ahmed glaucoma valve 9-31-33Pcxnfjx Unknown 02/12/18 Non Biological Flank RFDAStart: 27-15-1542Pybqopc on above:[employer] Spinal Cord Stimulator SC-1200Linear Leads SC-2218-50very restrictive heating conditions. B1+juan luis less than or equal to 2.0 UT or JAKE Less than or equal to 0.2 W/kgcannot scan in Normal Operating ModeMust use specific Low JAKE protocol for brain and kneeKNEE ARTHROSCOPY W/ ACL REPAIR Jose Jay DO 08/24/19 Unknown Knee RFDAStart: 43-05-1277DVLE ARTHROSCOPY W/ ACL REPAIR Jose Jay DO 08/24/19 Unknown Knee RFDAStart: 6119ASPJ ARTHROSCOPY W/ ACL REPAIR Jose Jay DO 08/24/19 Unknown Knee RFDAStart: 77-19-1496IIHL ARTHROSCOPY W/ ACL REPAIR Jose Jay DO 08/24/19 Unknown Knee RFDAStart: 53-05-8056BXCC ARTHROSCOPY W/ ACL REPAIR Jose Jay DO 08/24/19 Unknown Knee R FDAStart: 86-21-8365UWOW ARTHROSCOPY W/ ACL REPAIR Jose Jay DO 08/24/19 Unknown Knee RFDAStart: 06-89-3705BFPV ARTHROSCOPY W/ ACL REPAIR Jose Jay DO 08/24/19 Unknown Knee RFDAStart: 11-45-8588Kxnlzek Unknown 04/10/17 Non Biological EyeFDAStart: 31-31-7490Newbtlk on above:Right eye Ahmed glaucoma valve 5-38-42Nxgpaex Unknown 02/12/18 Non Biological Flank RFDAStart: 02-12-2018 Comment on above:[employer] Spinal Cord Stimulator SC-1200Linear Leads SC-2218-50very restrictive heating conditions. B1+juan luis less than or equal to 2.0 UT or JAKE Less than or equal to 0.2 W/kgcannot scan in Normal Operating ModeMust use specific Low JAKE protocol for brain and kneeKNEE ARTHROSCOPY W/ ACL REPAIR Jose aJy DO 08/24/19 Unknown Knee RFDAStart: 88-18-7836BOII ARTHROSCOPY W/ ACL REPAIR Jose Jay DO 08/24/19 Unknown Knee R FDAStart: 90-21-5691HRAN ARTHROSCOPY W/ ACL REPAIR Jose Jay DO 08/24/19 Unknown Knee RFDAStart: 03-82-6153UPTC ARTHROSCOPY W/ ACL REPAIR Jose Jay DO 08/24/19 Unknown Knee RFDAStart: 59-86-1039UQSC ARTHROSCOPY W/ ACL REPAIR Jose Jay DO 08/24/19 Unknown Knee RFDAStart: 37-76-6148ZFAA ARTHROSCOPY W/ ACL REPAIR Jose Jay DO 08/24/19 Unknown Knee RFDAStart: 00-07-3454IVZZ ARTHROSCOPY W/ ACL REPAIR Jose Jay DO 08/24/19 Unknown Knee RFDAStart: 04-22-7102Uadcnzb Unknown 04/10/17 Non Biological EyeFDAStart: 17-00-6965Zagywsu on above:Right eye Ahmed glaucoma valve 1-96-11Ekcqlkr Unknown 02/12/18 Non Biological Flank RFDAStart: 26-36-7281Xqwnfxr on above:[employer] Spinal Cord Stimulator SC-1200Linear Leads SC-2218-50very restrictive heating conditions. B1+juan luis less than or equal to 2.0 UT or JAKE Less than or equal to 0.2 W/kgcannot scan in Normal Operating ModeMust use specific Low JAKE protocol for brain and kneeKNEE ARTHROSCOPY W/ ACL REPAIR Jose Jay DO 08/24/19 Unknown Knee RFDAStart: 21-49-7416AALG ARTHROSCOPY W/ ACL REPAIR Jose Jay DO 08/24/19 Unknown Knee RFDAStart: 75-76-4375AXVH ARTHROSCOPY W/ ACL REPAIR Jose Jay DO 08/24/19 Unknown Knee RFDAStart: 87-96-2505NZRL ARTHROSCOPY W/ ACL REPAIR Jose Jay DO 08/24/19 Unknown Knee RFDAStart: 39-20-1172ZUDC ARTHROSCOPY W/ ACL REPAIR Jose Jay DO 08/24/19 Unknown Knee R FDAStart: 80-99-9997MSPR ARTHROSCOPY W/ ACL REPAIR Jose Jay DO 08/24/19 Unknown Knee RFDAStart: 01-02-8831IOUD ARTHROSCOPY W/ ACL REPAIR Jose Jay DO 08/24/19 Unknown Knee RFDAStart: 63-16-3994Nghoszq Unknown 04/10/17 Non Biological EyeFDAStart: 27-65-4731Apfaweo on above:Right eye Ahmed glaucoma valve 8-05-27Uiovghp Unknown 02/12/18 Non Biological Flank RFDAStart: 02-12-2018 Comment on above:[employer] Spinal Cord Stimulator SC-1200Linear Leads SC-2218-50very restrictive heating conditions. B1+juan luis less than or equal to 2.0 UT or JAKE Less than or equal to 0.2 W/kgcannot scan in Normal Operating ModeMust use specific Low JAKE protocol for brain and kneeKNEE ARTHROSCOPY W/ ACL REPAIR Jose Jay DO 08/24/19 Unknown Knee RFDAStart: 04-13-1792IBTV ARTHROSCOPY W/ ACL REPAIR Jose Jay DO 08/24/19 Unknown Knee R FDAStart: 10-40-4904LOMZ ARTHROSCOPY W/ ACL REPAIR Jose Jay DO 08/24/19 Unknown Knee RFDAStart: 73-45-9047QXOL ARTHROSCOPY W/ ACL REPAIR Jose Jay DO 08/24/19 Unknown Knee RFDAStart: 59-39-5227VWSS ARTHROSCOPY W/ ACL REPAIR Jose Jay DO 08/24/19 Unknown Knee RFDAStart: 16-39-2925XHYZ ARTHROSCOPY W/ ACL REPAIR Jose Jay DO 08/24/19 Unknown Knee RFDAStart: 76-70-8330MVGW ARTHROSCOPY W/ ACL REPAIR Jose Jay DO 08/24/19 Unknown Knee RFDAStart: 63-64-6720Yejotwo Unknown 04/10/17 Non Biological EyeFDAStart: 05-70-4721Dbvkiub on above:Right eye Ahmed glaucoma valve 1-68-48Ptdpgcs Unknown 02/12/18 Non Biological Flank RFDAStart: 20-08-4112Hrfzdwl on above:[employer] Spinal Cord Stimulator SC-1200Linear Leads SC-2218-50very restrictive heating conditions. B1+juan luis less than or equal to 2.0 UT or JAKE Less than or equal to 0.2 W/kgcannot scan in Normal Operating ModeMust use specific Low JAKE protocol for brain and kneeKNEE ARTHROSCOPY W/ ACL REPAIR Jose Jay DO 08/24/19 Unknown Knee RFDAStart: 76-64-8919YRHT ARTHROSCOPY W/ ACL REPAIR Jose Jay DO 08/24/19 Unknown Knee RFDAStart: 67-84-7585CGSU ARTHROSCOPY W/ ACL REPAIR Jose Jay DO 08/24/19 Unknown Knee RFDAStart: 66-24-8854UBOG ARTHROSCOPY W/ ACL REPAIR Jose Jay DO 08/24/19 Unknown Knee RFDAStart: 32-36-7903NQMH ARTHROSCOPY W/ ACL REPAIR Jose Jay DO 08/24/19 Unknown Knee R FDAStart: 40-27-4637UYDS ARTHROSCOPY W/ ACL REPAIR Jose Jay DO 08/24/19 Unknown Knee RFDAStart: 97-68-6593AWBU ARTHROSCOPY W/ ACL REPAIR Jose Jay DO 08/24/19 Unknown Knee RFDAStart: 58-40-1391Grobiux Unknown 04/10/17 Non Biological EyeFDAStart: 62-19-0170Lftftkp on above:Right eye Ahmed glaucoma valve 0-60-03Eoaopjs Unknown 02/12/18 Non Biological Flank RFDAStart: 02-12-2018 Comment on above:[employer] Spinal Cord Stimulator SC-1200Linear Leads SC-2218-50very restrictive heating conditions. B1+juan luis less than or equal to 2.0 UT or JAKE Less than or equal to 0.2 W/kgcannot scan in Normal Operating ModeMust use specific Low JAKE protocol for brain and kneeKNEE ARTHROSCOPY W/ ACL REPAIR Jose Jay DO 08/24/19 Unknown Knee RFDAStart: 85-92-6064JVRD ARTHROSCOPY W/ ACL REPAIR Jose Jay DO 08/24/19 Unknown Knee R FDAStart: 79-70-5668MSTE ARTHROSCOPY W/ ACL REPAIR Jose Jay DO 08/24/19 Unknown Knee RFDAStart: 99-93-7976CPIS ARTHROSCOPY W/ ACL REPAIR Jose Jay DO 08/24/19 Unknown Knee RFDAStart: 04-47-0584FJRU ARTHROSCOPY W/ ACL REPAIR Jose Jay DO 08/24/19 Unknown Knee RFDAStart: 95-88-3724PYRU ARTHROSCOPY W/ ACL REPAIR Jose Jay DO 08/24/19 Unknown Knee RFDAStart: 36-73-6149MAJN ARTHROSCOPY W/ ACL REPAIR Jose Jay DO 08/24/19 Unknown Knee RFDAStart: 14-29-7943Dxaaddn Unknown 04/10/17 Non Biological EyeFDAStart: 27-04-2150Jvodrek on above:Right eye Ahmed glaucoma valve 3-92-49Iiwrfbe Unknown 02/12/18 Non Biological Flank RFDAStart: 34-32-2386Pniylxp on above:[employer] Spinal Cord Stimulator SC-1200Linear Leads SC-2218-50very restrictive heating conditions. B1+juan luis less than or equal to 2.0 UT or JAKE Less than or equal to 0.2 W/kgcannot scan in Normal Operating ModeMust use specific Low JAKE protocol for brain and kneeKNEE ARTHROSCOPY W/ ACL REPAIR Jose Jay DO 08/24/19 Unknown Knee RFDAStart: 72-86-2058MUQM ARTHROSCOPY W/ ACL REPAIR Jose Jay DO 08/24/19 Unknown Knee RFDAStart: 21-14-1126XMXJ ARTHROSCOPY W/ ACL REPAIR Jose Jay DO 08/24/19 Unknown Knee RFDAStart: 21-94-6316AGHL ARTHROSCOPY W/ ACL REPAIR Jose Jay DO 08/24/19 Unknown Knee RFDAStart: 50-85-4519MPFU ARTHROSCOPY W/ ACL REPAIR Jose Jay DO 08/24/19 Unknown Knee R FDAStart: 46-94-9695NGWE ARTHROSCOPY W/ ACL REPAIR Jose Jay DO 08/24/19 Unknown Knee RFDAStart: 16-43-0573MGTB ARTHROSCOPY W/ ACL REPAIR Jose Jay DO 08/24/19 Unknown Knee RFDAStart: 49-09-1040Dubrvzr Unknown 04/10/17 Non Biological EyeFDAStart: 87-91-0425Wvaehbm on above:Right eye Ahmed glaucoma valve 4-98-41Vtfwybr Unknown 02/12/18 Non Biological Flank RFDAStart: 02-12-2018 Comment on above:[employer] Spinal Cord Stimulator SC-1200Linear Leads SC-2218-50very restrictive heating conditions. B1+juan luis less than or equal to 2.0 UT or JAKE Less than or equal to 0.2 W/kgcannot scan in Normal Operating ModeMust use specific Low JAKE protocol for brain and kneeKNEE ARTHROSCOPY W/ ACL REPAIR Jose Jay DO 08/24/19 Unknown Knee RFDAStart: 54-74-6783CVFL ARTHROSCOPY W/ ACL REPAIR Jose Jay DO 08/24/19 Unknown Knee R FDAStart: 19-62-5646BKXJ ARTHROSCOPY W/ ACL REPAIR Jose Jay DO 08/24/19 Unknown Knee RFDAStart: 87-25-1192EOFJ ARTHROSCOPY W/ ACL REPAIR Jose Jay DO 08/24/19 Unknown Knee RFDAStart: 53-31-2828QBBF ARTHROSCOPY W/ ACL REPAIR Jose Jay DO 08/24/19 Unknown Knee RFDAStart: 66-10-9317TIHY ARTHROSCOPY W/ ACL REPAIR Jose Jay DO 08/24/19 Unknown Knee RFDAStart: 38-95-1744DDQD ARTHROSCOPY W/ ACL REPAIR Jose Jay DO 08/24/19 Unknown Knee RFDAStart: 53-26-8894Tjgmodr Unknown 04/10/17 Non Biological EyeFDAStart: 35-59-3144Tgxlwdb on above:Right eye Ahmed glaucoma valve 3-47-70Aopknqc Unknown 02/12/18 Non Biological Flank RFDAStart: 40-42-4658Layajbt on above:[employer] Spinal Cord Stimulator SC-1200Linear Leads SC-2218-50very restrictive heating conditions. B1+juan luis less than or equal to 2.0 UT or JAKE Less than or equal to 0.2 W/kgcannot scan in Normal Operating ModeMust use specific Low JAKE protocol for brain and kneeKNEE ARTHROSCOPY W/ ACL REPAIR Jose Jay DO 08/24/19 Unknown Knee RFDAStart: 42-42-8338WLOT ARTHROSCOPY W/ ACL REPAIR Jose Jay DO 08/24/19 Unknown Knee RFDAStart: 69-52-9728LEXW ARTHROSCOPY W/ ACL REPAIR Jose Jay DO 08/24/19 Unknown Knee RFDAStart: 57-42-8747UBJQ ARTHROSCOPY W/ ACL REPAIR Jose Jay DO 08/24/19 Unknown Knee RFDAStart: 57-98-8163OAOZ ARTHROSCOPY W/ ACL REPAIR Jose Jay DO 08/24/19 Unknown Knee R FDAStart: 93-97-7794FWXC ARTHROSCOPY W/ ACL REPAIR Jose Jay DO 08/24/19 Unknown Knee RFDAStart: 11-39-8635HZAY ARTHROSCOPY W/ ACL REPAIR Jose Jay DO 08/24/19 Unknown Knee RFDAStart: 58-01-5007Jqcqisx Unknown 04/10/17 Non Biological EyeFDAStart: 19-35-9443Xcmcvlg on above:Right eye Ahmed glaucoma valve 6-96-00Hxrcnyp Unknown 02/12/18 Non Biological Flank RFDAStart: 02-12-2018 Comment on above:[employer] Spinal Cord Stimulator SC-1200Linear Leads SC-2218-50very restrictive heating conditions. B1+juan luis less than or equal to 2.0 UT or JAKE Less than or equal to 0.2 W/kgcannot scan in Normal Operating ModeMust use specific Low JAKE protocol for brain and kneeKNEE ARTHROSCOPY W/ ACL REPAIR Jose Jay DO 08/24/19 Unknown Knee RFDAStart: 40-62-0097GFNJ ARTHROSCOPY W/ ACL REPAIR Jose Jay DO 08/24/19 Unknown Knee R FDAStart: 96-71-3281WCHB ARTHROSCOPY W/ ACL REPAIR Jose Jay DO 08/24/19 Unknown Knee RFDAStart: 49-50-9541DEYS ARTHROSCOPY W/ ACL REPAIR Jose Jay DO 08/24/19 Unknown Knee RFDAStart: 94-68-4928HFSU ARTHROSCOPY W/ ACL REPAIR Jose Jay DO 08/24/19 Unknown Knee RFDAStart: 86-04-0468DSFP ARTHROSCOPY W/ ACL REPAIR Jose Jay DO 08/24/19 Unknown Knee RFDAStart: 74-16-4379JIHQ ARTHROSCOPY W/ ACL REPAIR Jose Jay DO 08/24/19 Unknown Knee RFDAStart: 44-89-4051Ccewine Unknown 04/10/17 Non Biological EyeFDAStart: 38-16-8810Idstbqo on above:Right eye Ahmed glaucoma valve 5-95-29Sfifaps Unknown 02/12/18 Non Biological Flank RFDAStart: 37-67-2806Bgmoffg on above:[employer] Spinal Cord Stimulator SC-1200Linear Leads SC-2218-50very restrictive heating conditions. B1+juan luis less than or equal to 2.0 UT or JAKE Less than or equal to 0.2 W/kgcannot scan in Normal Operating ModeMust use specific Low JAKE protocol for brain and knee Goals DatePatient GoalDesired Activity/State Functional Status BewsAbcszqcerjLomzrsGvslpcrl10-47-5774Uiitezaaor StatusN/[facility]02-04-2025Functional StatusN/[facility]10-14-2024 Functional StatusN/[facility]07-11-2024Functional StatusN/A [facility]03-21-2024Functional StatusN/[facility]12-21-2023Functional StatusN/[facility] [id number] StatusN/[facility]08-01-2023Functional StatusN/[facility]N/[facility] 70-72-7447Onhhxwpgjc StatusN/[facility]12-07-2022Functional StatusN/[facility]12-01-2022[facility] [place] [facility] 01-10-2021 to 09-18-2024 Note Date & [id number] Evaluation + Plan note Future Appointments Appointment Date:10/02/2024 08:15:00 AM Scheduled Provider: Location:.[place] Appointment Type:PT 60 (FT) Appointment Date:10/02/2024 09:15:00 AM Scheduled Provider: Location:FT.OCCUPATIONAL Appointment Type:OT 60 (FT) Appointment Date:10/05/2024 08:45:00 AM Scheduled Provider: Location[place] Appointment Type:PT Re-Eval 60 (FT) Appointment Date:10/05/2024 10:00:00 AM Scheduled Provider: Location:FT.OCCUPATIONAL Appointment Type:OT 60 (FT) Appointment Date:10/08/2024 08:15:00 AM Scheduled Provider: Location:.[place] Appointment Type:PT 60 (FT) Appointment Date:10/08/2024 09:30:00 AM Scheduled Provider: Location:FT.OCCUPATIONAL Appointment Type:OT 60 (FT) Appointment Date:10/13/2024 08:15:00 AM Scheduled Provider: Location:.[place] Appointment Type:PT 60 (FT) Appointment Date:10/13/2024 09:15:00 AM Scheduled Provider: Location:FT.OCCUPATIONAL Appointment Type:OT 60 (FT) Appointment Date:10/15/2024 08:15:00 AM Scheduled Provider: Location:.[place] Appointment Type:PT 60 (FT) Appointment Date:10/15/2024 09:30:00 AM Scheduled Provider: Location:FT.OCCUPATIONAL Appointment Type:OT Re-Eval (FT) Appointment Date:10/22/2024 09:15:00 AM Scheduled Provider: Location:.[place] Appointment Type:PT 60 (FT) Appointment Date:10/22/2024 10:15:00 AM Scheduled Provider: Location:.OCCUPATIONAL Appointment Type:OT 60 (FT) Appointment Date:10/26/2024 08:45:00 AM Scheduled Provider: Location:.[place] Appointment Type:PT 60 (FT) Appointment Date:10/26/2024 09:45:00 AM Scheduled Provider: Location:.OCCUPATIONAL Appointment Type:OT 60 (FT) Appointment Date:10/29/2024 08:30:00 AM Scheduled Provider: Location:[place]ICAL [place] Appointment Type:PT 60 (FT) Appointment Date:10/29/2024 09:30:00 AM Scheduled Provider: Location:FT.OCCUPATIONAL Appointment Type:OT 60 (FT) Appointment Date:11/02/2024 08:45:00 AM Scheduled Provider: Location:[place] Appointment Type:PT 60 (FT) Appointment Date:11/02/2024 09:45:00 AM Scheduled Provider: Location:FT.OCCUPATIONAL Appointment Type:OT 60 (FT) Appointment Date:11/05/2024 08:30:00 AM Scheduled Provider: Location:[facility] Appointment Type:PT Re-Eval 60 (FT) Appointment Date:11/05/2024 09:30:00 AM Scheduled Provider: Location:FT.OCCUPATIONAL Appointment Type:OT 60 (FT) Appointment Date:11/09/2024 08:45:00 AM Scheduled Provider: Location:[facility] Appointment Type:PT 60 (FT) Appointment Date:11/09/2024 09:45:00 AM Scheduled Provider: Location:FT.OCCUPATIONAL Appointment Type:OT 60 (FT) Appointment Date:11/12/2024 08:30:00 AM Scheduled Provider: Location:FT.OCCUPATIONAL Appointment Type:OT Re-Eval (FT) Appointment Date:11/12/2024 09:30:00 AM Scheduled Provider: Location:[facility] Appointment Type:PT 60 (FT) Appointment Date:11/16/2024 08:45:00 AM Scheduled Provider: Location:[facility] Appointment Type:PT 60 (FT) Appointment Date:11/16/2024 09:45:00 AM Scheduled Provider: Location:FT.OCCUPATIONAL Appointment Type:OT 60 (FT) Appointment Date:11/19/2024 09:30:00 AM Scheduled Provider: Location:[facility] Appointment Type:PT 60 (FT) Appointment Date:11/19/2024 10:30:00 AM Scheduled Provider: Location:FT.OCCUPATIONAL Appointment Type:OT 60 (FT) Appointment Date:11/23/2024 08:45:00 AM Scheduled Provider: Location:[facility] Appointment Type:PT 60 (FT) Appointment Date:11/23/2024 09:45:00 AM Scheduled Provider: Location:FT.OCCUPATIONAL Appointment Type:OT 60 (FT) Appointment Date:11/26/2024 08:30:00 AM Scheduled Provider: Location:FT.OCCUPATIONAL Appointment Type:OT 60 (FT) Appointment Date:11/26/2024 09:30:00 AM Scheduled Provider: [place]:[facility] Appointment Type:PT 60 (FT) Appointment Date:11/30/2024 08:45:00 AM Scheduled Provider: [place]:[facility] Appointment Type:PT 60 (FT) Appointment Date:11/30/2024 09:45:00 AM Scheduled Provider: Location:FT.OCCUPATIONAL Appointment Type:OT 60 (FT) Appointment Date:12/02/2024 08:45:00 AM Scheduled Provider: [place]:[facility] Appointment Type:PT Re-Eval 60 (FT) Appointment Date:12/02/2024 09:45:00 AM Scheduled Provider: Location:FT.OCCUPATIONAL Appointment Type:OT 60 (FT) Appointment Date:12/09/2024 08:15:00 AM Scheduled Provider: [place] Appointment Type:PT 60 (FT) Appointment Date:12/09/2024 09:15:00 AM Scheduled Provider: Location:FT.OCCUPATIONAL Appointment Type:OT 60 (FT) Appointment Date:12/11/2024 08:15:00 AM Scheduled Provider: Location:[facility] Appointment Type:PT 60 (FT) Appointment Date:12/11/2024 09:15:00 AM Scheduled Provider: Location:FT.OCCUPATIONAL Appointment Type:OT Re-Eval (FT) Appointment Date:12/15/2024 08:30:00 AM Scheduled Provider: Location[place] Appointment Type:PT 60 (FT) Appointment Date:12/15/2024 09:30:00 AM Scheduled Provider: Location:FT.OCCUPATIONAL Appointment Type:OT 60 (FT) Appointment Date:12/17/2024 08:30:00 AM Scheduled Provider: [place] Appointment Type:PT Re-Eval 60 (FT) Appointment Date:12/17/2024 09:30:00 AM Scheduled Provider: Location:.OCCUPATIONAL Appointment Type:OT Re-Eval (FT) [facility] 07-02-2025 Evaluation + Plan note Future Appointments Appointment Date:09/10/2024 08:30:00 AM Scheduled Provider: [place]:.[place] Appointment Type:PT 60 (FT) Appointment Date:09/10/2024 09:30:00 AM Scheduled Provider: Location:FT.OCCUPATIONAL Appointment Type:OT 60 (FT) Appointment Date:09/16/2024 08:45:00 AM Scheduled Provider: [place]:.[place] Appointment Type:PT 60 (FT) Appointment Date:09/16/2024 09:45:00 AM Scheduled Provider: Location:FT.OCCUPATIONAL Appointment Type:OT Re-Eval (FT) Appointment Date:09/17/2024 08:30:00 AM Scheduled Provider: Location:[place] Appointment Type:PT Re-Eval 60 (FT) Appointment Date:09/30/2024 08:15:00 AM Scheduled Provider: Location:[facility] Appointment Type:PT 60 (FT) Appointment Date:09/30/2024 09:15:00 AM Scheduled Provider: Location:FT.OCCUPATIONAL Appointment Type:OT 60 (FT) Appointment Date:09/30/2024 11:30:00 AM Scheduled Provider: [facility] Appointment Type:URO Nurse Visit Appointment Date:10/02/2024 08:15:00 AM Scheduled Provider: [place]:.[place] Appointment Type:PT 60 (FT) Appointment Date:10/02/2024 09:15:00 AM Scheduled Provider: Location:.OCCUPATIONAL Appointment Type:OT 60 (FT) Appointment Date:10/05/2024 08:45:00 AM Scheduled Provider: [place]:.[place] Appointment Type:PT Re-Eval 60 (FT) Appointment Date:10/05/2024 10:00:00 AM Scheduled Provider: Location:FT.OCCUPATIONAL Appointment Type:OT 60 (FT) Appointment Date:10/08/2024 09:30:00 AM Scheduled Provider: Location:FT.OCCUPATIONAL Appointment Type:OT 60 (FT) Appointment Date:10/13/2024 09:30:00 AM Scheduled Provider: Location:.OCCUPATIONAL Appointment Type:OT 60 (FT) Appointment Date:10/15/2024 09:30:00 AM Scheduled Provider: Location:.OCCUPATIONAL Appointment Type:OT 60 (FT) [facility] [id number] Telephone encounter Note* Telephone Encounter - Crystal Maddox - 08/04/2024 3:23 PM EDT 1st attempt: LVKenny. Sent MyChart message. Crystal Maddox [facility]06-17-2025 Miscellaneous Notes* Telephone Encounter - Crystal Maddox - 08/04/2024 3:23 PM EDT 1st attempt: LVM. Sent MyChart message. Crystal Maddox [facility] Evaluation + Plan note Extracted from:Title:botox injectionAuthor:Camilo Deras DODate:07/02/24 History, physical examinatio n, and personal review of pertinent imaging results indicate a diagnosis of: -Right shoulder contracture -Right shoulder pain -Multiple sclerosis Plan: -Right upper extremity/trunk was injected today and 5 total muscle groups with Botox, 400 units, procedure described below. 3 right upper extremity muscles and 2 trunk muscles on the right. Discussed that we can follow-up in 3 months or sooner if needed -we can also perform right shoulder intra-articular corticosteroid injection as long as they provide effective relief for her, we will also continue her on Lyrica 200 mg 3 times daily as this is effective for her as well An in office procedure was performed today. Risks and benefits were discussed at length, verbal consent was obtained from the patient. The areawas prepped under strict aseptic technique using chloraprep solution, sterile gloves were utilized. Location: Right upper extremity, multiple muscle groups. Ultrasound was utilized to identify these muscles Anatomic Landmarks: Pectoralis muscle as well as the FCR, FDP, and right deltoid as well as right latissimus dorsi. 25 gauge 1.5 inch needle was utilized for visualization under ultrasound. Medications: 400 units of Botox was diluted into 8 cc of normal saline, 3 cc of 2% lidocaine was injected at the needle insertion sites. Procedure: Patient was identified, procedural sites were identified and prior notes were reviewed prior to performing this. We injected 400 units of Botox total after cleaning the skin and identifying muscle groups using sterile equipment and an ultrasound device. Before injection of any Botox, aspiration was performed and did not reveal any vascular uptake at each site. The sites were identified as below: 1. 150u RUE pectoralis, divided between 3 sites 2. 50u RUE flexor carpi radialis, 1 site 3. 50u RUE flexor digitorum profundus, 1 site 4. 100u RUE deltoid, 2 sites 5. 50u RUE latissimus dorsi, 1 site the patient tolerated the procedure well without complication and will follow up regarding changes after procedure. Patient observed post-procedure without further issue or new complaints. Improvement in pain was noted. Future Appointments Appointment Date:07/06/2024 09:00:00 AM Scheduled Provider: Location:.MAMMOGRAM Appointment Type:MA Screen () Appointment Date:07/07/2024 12:45:00 PM Scheduled Provider: Location:.OCCUPATIONAL Appointment Type:OT 60 () Appointment Date:07/07/2024 01:45:00 PM Scheduled Provider: Location:.[place] Appointment Type:PT 60 () Appointment Date:07/08/2024 10:40:00 AM Scheduled Provider:Lakia Mcdonnell [facility] Appointment Type:URO Office Visit Appointment Date:07/09/2024 09:15:00 AM Scheduled Provider: [place]:.[place] Appointment Type:PT Re-Eval 60 () Appointment Date:07/09/2024 10:30:00 AM Scheduled Provider: Location:.OCCUPATIONAL Appointment Type:OT 60 (FT) Appointment Date:07/14/2024 08:30:00 AM Scheduled Provider: Location:.OCCUPATIONAL Appointment Type:OT 60 (FT) Appointment Date:07/14/2024 09:30:00 AM Scheduled Provider: Location:.[place] Appointment Type:PT 60 (FT) Appointment Date:07/16/2024 12:15:00 PM Scheduled Provider: Location:.OCCUPATIONAL Appointment Type:OT 60 (FT) Appointment Date:07/16/2024 01:45:00 PM Scheduled Provider: Location:[place] Appointment Type:PT 60 (FT) Appointment Date:07/29/2024 10:40:00 AM Scheduled Provider:Lakia Mcdonnell [facility] Appointment Type:URO Office Visit Future Scheduled Tests Radiology* MA Mamm Screen w/CAD if perf and 3D David 07/06/24 [facility] 05-05-2025 Telephone encounter Note* Telephone Encounter - Jenny Pillai RN - 06/22/2024 10:44 AM EDT Called left message to call office Sent Volleyt message [facility] Work Phone: [phone]) 800-902405-05-2025 Miscellaneous Notes* Telephone Encounter - Jenny Pillai RN - 06/22/2024 10:44 AM EDT Called left message to call office Sent Volleyt message * Telephone Encounter - Juanita Corado PA-C - 06/22/2024 10:17 AM EDT The following approved medication requests have been transmitted electronically. Requested Prescriptions Signed Prescriptions Disp Refills baclofen 20 mg tablet 180 tablet 0 Sig: TAKE 1 TABLET BY MOUTH TWICE A DAY Authorizing Provider: JUANITA CORADO PA-C * Telephone Encounter - Natali Ledezma - 06/22/2024 10:06 AM EDT Source : electronic from pharmacy requesting refill. Delivery : e-script Requested Prescriptions Pending Prescriptions Disp Refills baclofen 20 mg tablet [Pharmacy Med Name: BACLOFEN 20 MG TABLET] 180 tablet 0 Sig: TAKE 1 TABLET BY MOUTH TWICE A DAY DX : Patient last seen: 01/30/2023 Next Appointment : None Natali Vigil [facility] Telephone encounter Note * Telephone Encounter - Juanita Corado PA-C - 06/22/2024 10:17 AM EDT The following approved medication requests have been transmitted electronically. Requested Prescriptions Signed Prescriptions Disp Refills baclofen 20 mg tablet 180 tablet 0 Sig: TAKE 1 TABLET BY MOUTH TWICE A DAY Authorizing Provider: JUANITA CORADO PA-C [facility]05-05-2025 Telephone encounter Note* Telephone Encounter - Natali Ledezma - 06/22/2024 10:06 AM EDT Source : electronic from pharmacy requesting refill. Delivery : e-script Requested Prescriptions Pending Prescriptions Disp Refills baclofen 20 mg tablet [Pharmacy Med Name: BACLOFEN 20 MG TABLET] 180 tablet 0 Sig: TAKE 1 TABLET BY MOUTH TWICE A DAY DX : Patient last seen: 01/30/2023 Next Appointment : None Natali Vigil [facility] Work Phone: [phone]) 841-391104-10-2025 NotePatient Education Obstetrics and Gynecology Urinary Tract Infection, Adult A urinary tract infection (UTI) is an infection of any part of the urinary tract. The urinary tractincludes the kidneys, ureters, bladder, and urethra. These organs make, store, and get rid of urinein the body. An upper UTI affects the ureters and kidneys. A lower UTI affects the bladder and urethra. What are the causes? Most urinary tract infections are caused by bacteria in your genital area around your urethra, where urine leaves your body. These bacteria grow and cause inflammation of your urinary tract. What increases the risk? You are more likely to develop this condition if: ??? You have a urinary catheter that stays in place. ??? You are not able to control when you urinate or have a bowel movement (incontinence). ??? You are female and you: ? Use a spermicide or diaphragm for control. ? Have low estrogen levels. ? Are . ??? You have certain genes that increase your risk. ??? You are sexually active. ??? You take antibiotic medicines. ??? You have a condition that causes your flow of urine to slow down, such as: ? An enlarged prostate, if you are male. ? Blockage in your urethra. ? A kidney stone. ? A nerve condition that affects your bladder control (neurogenic bladder). ? Not getting enough to drink, or not urinating often. ??? You have certain medical conditions, such as: ? Diabetes. ? A weak disease-fighting system (immunesystem). ? Sickle cell disease. ? Gout. ? Spinal cord injury. What are the signs or symptoms? Symptoms of this condition include: ??? Needing to urinate right away (urgency). ??? Frequent urination. This may include small amounts of urine each time you urinate. ??? Pain or burning with urination. ??? Blood in the urine. ??? Urine that smells bad or unusual. ??? Trouble urinating. ??? Cloudy urine. ??? Vaginal discharge, if you are female. ??? Pain in the abdomen or the lower back. You may also have: ??? Vomiting or a decreased appetite. ??? Confusion. ??? Irritability or tiredness. ??? A fever or chills. ??? Diarrhea. The first symptom in older adults may be confusion. In some cases, they may not have any symptoms until the infection has worsened. How is this diagnosed? This condition is diagnosed based on your medical history and a physical exam. You may also have other tests, including: ??? Urine tests. ??? Blood tests. ??? Tests for STIs (sexually transmitted infections). If you have had more than one UTI, a cystoscopy or imaging studies may be done to determine the cause of the infections. How is this treated? Treatment for this condition includes: ??? Antibiotic medicine. ??? Dojt-rdy-wpdxfum medicines to treat discomfort. ??? Drinking enough water to stay hydrated. If you have frequent infections or have other conditions such as a kidney stone, you may need to see a health care provider who specializes in the urinary tract (urologist). In rare cases, urinary tract infections can cause sepsis. Sepsis is a life- threatening condition that occurs when the body responds to an infection. Sepsis is treated in the hospital with IV antibiotics, fluids, and other medicines. Follow these instructions at home: Medicines ??? Take zkyj-xcz-pyuiwks and prescription medicines only as told by your health care provider. ??? If you were prescribed an antibiotic medicine, take it as told by your health care provider. Donot stop using the antibiotic even if you start to feel better. General instructions ??? Make sure you: ? Empty your bladder often and completely. Do not hold urine for long periods of time. ? Empty your bladder after sex. ? Wipe from front to back after urinating or having a bowel movement if you are female. Use each tissue only one time when you wipe. ??? Drink enough fluid to keep your urine pale yellow. ??? Keep all follow-up visits. This is important. Contact a health care provider if: ??? Your symptoms do not get better after 1?2 days. ??? Your symptoms go away and then return. Get help right away if: ??? You have severe pain in your back or your lower abdomen. ??? You have a fever or chills. ??? You have nausea or vomiting. Summary ??? A urinary tract infection (UTI) is an infection of any part of the urinary tract, which includes the kidneys, ureters, bladder, and urethra. ??? Most urinary tract infections are caused by bacteria in your genital area. ??? Treatment for this condition often includes antibiotic medicines. ??? If you were prescribed an antibiotic medicine, take it as told by your health care provider. Donot stop using the antibiotic even if you start to feel better. ??? Keep all follow-up visits. This is important. This information is not intended to replace advice given to you by your health care provider. Make sure you di (more content not included)...[facility]02-06-2025 NoteNonvisit Note - OT Pt. cx, d/t reaction from procedure.[facility]02-06-2025 Note Nonvisit Note - PT Cancel due to reaction to procedureJ [facility]Thomas [facility] Evaluation + Plan noteExtracted from:Title:Right upper extremity and trunk muscle injections in the office under ultrasoundAuthor:Braeden LLOYD Camilo HyattMonique Date:03/24/24 History, physical examinatio n, and personal review of pertinent imaging results indicate a diagnosis of: -Right shoulder contracture -Right shoulder pain -Multiple sclerosis Plan: -Right upper extremity/trunk was injected today and 5 total muscle groups with Botox, 400 units, procedure described below. 3 right upper extremity muscles and 2 trunk muscles on the right. Discussed that we can follow-up in 3 months or sooner if needed we can also perform right shoulder intra-articular corticosteroid injection as long as they provide effective relief for her, we will also continue her on Lyrica 200 mg 3 times daily as this is effective for her as well An in office procedure was performed today. Risks and benefits were discussed at length, verbal consent was obtained from the patient. The areawas prepped under strict aseptic technique using chloraprep solution, sterile gloves were utilized. Location: Right upper extremity, multiple muscle groups. Ultrasound was utilized to identify these muscles Anatomic Landmarks: Pectoralis muscle as well as the FCR, FDP, and right deltoid as well as right latissimus dorsi. Stimuplex needle was utilized for visualization under ultrasound. Medications: 400 units of Botox was diluted into 8 cc of normal saline, 3 cc of 2% lidocaine was injected at the needle insertion sites. Procedure: Patient was identified, procedural sites were identified and prior notes were reviewed prior to performing this. We injected 400 units of Botox total after cleaning the skin and identifying muscle groups using sterile equipment and an ultrasound device. Before injection of any Botox, aspiration was performed and did not reveal any vascular uptake at each site. The sites were identified as below: 1. 150u RUE pectoralis, divided between 3 sites 2. 50u RUE flexor carpi radialis, 1 site 3. 50u RUE flexor digitorum profundus, 1 site 4. 100u RUE deltoid, 2 sites 5. 50u RUE latissimus dorsi, 1 site the patient tolerated the procedure well without complication and will follow up regarding changes after procedure. Patient observed post-procedure without further issue or new complaints. Improvement in pain was noted. Patient was counseled on the above diagnosis and treatment, all questions were answered and patientagrees to adhere to the plan above. Risk and benefits of appropriate procedures and medications were reviewed as well with patient, who voiced understanding and agreeance. Patient was counseled on appropriate use of opioids if prescribed or renewed today and naloxone was offered to patient if opioids were prescribed or maintained at this visit. PHQ-2 scoring reviewed with patient and discussed seeking treatment for depression or mood disorder as appropriate. Patient was counseled on smoking cessation and/or [...] or concerns that arise. Future Appointments Appointment Date:03/26/2024 08:15:00 AM Scheduled Provider: Location:FT.OCCUPATIONAL Appointment Type:OT 60 (FT) Appointment Date:03/26/2024 09:15:00 AM Scheduled Provider: Location:FT.[place]ICAL [place] Appointment Type:PT 60 (FT) Appointment Date:03/30/2024 08:45:00 AM Scheduled Provider: Location:FT.[place]ICAL [place] Appointment Type:PT 60 (FT) Appointment Date:03/30/2024 09:45:00 AM Scheduled Provider: Location:FT.OCCUPATIONAL Appointment Type:OT 60 (FT) Appointment Date:04/02/2024 08:30:00 AM Scheduled Provider: Location:FT.[place]ICAL [place] Appointment Type:PT 60 (FT) Appointment Date:04/02/2024 09:30:00 AM Scheduled Provider: Location:FT.OCCUPATIONAL Appointment Type:OT 60 (FT) Appointment Date:04/06/2024 08:45:00 AM Scheduled Provider: Location:FT.[place]ICAL [place] Appointment Type:PT 60 (FT) Appointment Date:04/06/2024 09:45:00 AM Scheduled Provider: Location:FT.OCCUPATIONAL Appointment Type:OT 60 (FT) Appointment Date:04/09/2024 08:30:00 AM Scheduled Provider: Location:FT.[place]ICAL [place] Appointment Type:PT 60 (FT) Appointment Date:04/09/2024 09:30:00 AM Scheduled Provider: Location:FT.OCCUPATIONAL Appointment Type:OT Re-Eval (FT) Appointment Date:04/13/2024 08:45:00 AM Scheduled Provider: Location:FT.[place]ICAL [place] Appointment Type:PT 60 (FT) Appointment Date:04/13/2024 09:45:00 AM Scheduled Provider: Location:FT.OCCUPATIONAL Appointment Type:OT 60 (FT) Appointment Date:04/14/2024 10:20:00 AM Scheduled Provider:ADRIAN Sweet APRN, [place] [facility] Appointment Type:URO Office Visit Appointment Date:04/16/2024 08:15:00 AM Scheduled Provider: Location:FT.OCCUPATIONAL Appointment Type:OT 60 (FT) Appointment Date:04/16/2024 09:15:00 AM Scheduled Provider: Location:FT.[place]ICAL [place] Appointment Type:PT Re-Eval 60 (FT) Appointment Date:04/20/2024 08:30:00 AM Scheduled Provider: Location:FT[facility] Appointment Type:PT 60 (FT) Appointment Date:04/20/2024 09:30:00 AM Scheduled Provider: Location:FT.OCCUPATIONAL Appointment Type:OT 60 (FT) Appointment Date:04/23/2024 08:15:00 AM Scheduled Provider: Location:FT.OCCUPATIONAL Appointment Type:OT 60 (FT) Appointment Date:04/23/2024 09:15:00 AM Scheduled Provider: Location:FT.[place]ICAL [place] Appointment Type:PT 60 (FT) Appointment Date:04/27/2024 08:30:00 AM Scheduled Provider: Location:FT.[place] Appointment Type:PT 60 (FT) Appointment Date:04/27/2024 09:30:00 AM Scheduled Provider: Location:FT.OCCUPATIONAL Appointment Type:OT 60 (FT) Appointment Date:04/30/2024 08:15:00 AM Scheduled Provider: Location:FT.OCCUPATIONAL Appointment Type:OT 60 (FT) Appointment Date:04/30/2024 09:15:00 AM Scheduled Provider: Location:FT.[place] Appointment Type:PT 60 (FT) Appointment Date:05/04/2024 08:30:00 AM Scheduled Provider: Location:FT.[place]ICAL [place] Appointment Type:PT 60 (FT) Appointment Date:05/04/2024 09:30:00 AM Scheduled Provider: Location:FT.OCCUPATIONAL Appointment Type:OT 60 (FT) Appointment Date:05/05/2024 10:20:00 AM Scheduled Provider:ADRIAN Sweet APRN, [place] [facility] Appointment Type:URO Office Visit Appointment Date:05/07/2024 08:30:00 AM Scheduled Provider: Location:FT.[place] [place] Appointment Type:PT 60 (FT) Appointment Date:05/07/2024 09:30:00 AM Scheduled Provider: Location:FT.OCCUPATIONAL Appointment Type:OT Re-Eval (FT) Appointment Date:05/11/2024 08:45:00 AM Scheduled Provider: Location:FT[facility] [place] Appointment Type:PT 60 (FT) Appointment Date:05/11/2024 09:45:00 AM Scheduled Provider: Location:FT.OCCUPATIONAL Appointment Type:OT 60 (FT) Appointment Date:05/14/2024 09:00:00 AM Scheduled Provider: Location:FT[facility]ICAL [place] Appointment Type:PT Re-Eval 60 (FT) Appointment Date:05/14/2024 10:00:00 AM Scheduled Provider: Location:FT.OCCUPATIONAL Appointment Type:OT 60 (FT) Appointment Date:05/18/2024 08:30:00 AM Scheduled Provider: Location:FT.OCCUPATIONAL Appointment Type:OT Re-Eval (FT) [facility] 02-02-2025 Evaluation + Plan note Future Appointments Appointment Date:04/16/2024 08:15:00 AM Scheduled Provider: Location:FT.OCCUPATIONAL Appointment Type:OT 60 (FT) Appointment Date:04/16/2024 09:15:00 AM Scheduled Provider: Location:FT.[place] Appointment Type:PT Re-Eval 60 (FT) Appointment Date:04/20/2024 08:30:00 AM Scheduled Provider: Location:[facility] [place] Appointment Type:PT 60 (FT) Appointment Date:04/20/2024 09:30:00 AM Scheduled Provider: Location:FT.OCCUPATIONAL Appointment Type:OT 60 (FT) Appointment Date:04/23/2024 08:15:00 AM Scheduled Provider: Location:FT.OCCUPATIONAL Appointment Type:OT 60 (FT) Appointment Date:04/23/2024 09:15:00 AM Scheduled Provider: Location:[facility] Appointment Type:PT 60 (FT) Appointment Date:04/27/2024 08:30:00 AM Scheduled Provider: Location:[facility] [place] Appointment Type:PT 60 (FT) Appointment Date:04/27/2024 09:30:00 AM Scheduled Provider: Location:FT.OCCUPATIONAL Appointment Type:OT 60 (FT) Appointment Date:04/30/2024 08:15:00 AM Scheduled Provider: Location:FT.OCCUPATIONAL Appointment Type:OT 60 (FT) Appointment Date:04/30/2024 09:15:00 AM Scheduled Provider: Location:[facility] [place] Appointment Type:PT 60 (FT) Appointment Date:05/04/2024 08:30:00 AM Scheduled Provider: Location:[place] Appointment Type:PT 60 (FT) Appointment Date:05/04/2024 09:30:00 AM Scheduled Provider: Location:FT.OCCUPATIONAL Appointment Type:OT 60 (FT) Appointment Date:05/05/2024 10:20:00 AM Scheduled Provider:ADRIAN Sweet APRN, [place] [facility] Appointment Type:URO Office Visit Appointment Date:05/07/2024 08:30:00 AM Scheduled Provider: Location:FT.OCCUPATIONAL Appointment Type:OT Re-Eval (FT) Appointment Date:05/07/2024 09:30:00 AM Scheduled Provider: Location:FT.[place]ICAL [place] Appointment Type:PT 60 (FT) Appointment Date:05/11/2024 08:45:00 AM Scheduled Provider: Location:FT.[place]ICAL [place] Appointment Type:PT 60 (FT) Appointment Date:05/11/2024 09:45:00 AM Scheduled Provider: Location:FT.OCCUPATIONAL Appointment Type:OT 60 (FT) Appointment Date:05/14/2024 09:00:00 AM Scheduled Provider: Location:FT.[place]ICAL [place] Appointment Type:PT Re-Eval 60 (FT) Appointment Date:05/14/2024 10:00:00 AM Scheduled Provider: Location:FT.OCCUPATIONAL Appointment Type:OT 60 (FT) Appointment Date:05/18/2024 08:30:00 AM Scheduled Provider: Location:FT.OCCUPATIONAL Appointment Type:OT Re-Eval (FT) [facility] 11-25-2024 Hospital Discharge instructions Follow Up Care 01/13/2024 09:20:12 With:MARILIA CR PA-C, URL Address: [address] [place], [place] [address] [address] When: Unknown [facility] [place] [id number] Evaluation + Plan noteExtracted from:Title: chronic painAuthor:Camilo Deras DO.Date:12/02/23 Patient is presenting with h istory of multiple sclerosis, right upper extremity contracture, right shoulder pain. She rates her pain as a 5/10 to 10/10 in severity particularly on this right side. Her last Botox injection on 08/29/2023, has provided 70% symptom relief for 2 months. She has been receiving right upper extremity Botox injections into the specific muscle groups that we reviewed the records for her in the past and today. She is presenting today for Botox injection. Additionally, she is taking Lyrica 200 mg 3 times daily with good benefit. Today we performed in office injection with 400 units of Botox in the right upper extremity under ultrasound guidance using a Stimuplex needle. Patient tolerated the procedure well we discussed medication refills and any additional changes that may be required, she is taking his medication without any issue. At her last office visit she had a right shoulder intra-articular injection that she reports she received 80% relief ongoing. We discussed that we can repeat these procedures as needed for her. REID Score: 73% PHQ-2: 5, actively treated Patient denies any symptoms of progressively worsening upper/lower extremity weakness, progressively worsening gait abnormality, new onset bowel/bladder incontinence/ urinary retention, or saddle anesthesia. No new or worsening symptoms of fever, chills, night sweats. 14 Point Review of systems negative unless otherwise noted. General: No acute distress. Patient appears well-nourished. HEENT: Head is normocephalic and external ears are normal in appearance. Cardiovascular: No signs of poor perfusion and no peripheral edema Pulmonary: Nonlabored breathing, symmetric chest movement. GI: Abdomen nondistended Integumentary: No lesions Musculoskeletal: Nontender to palpation over the paraspinal muscles, facets, and sacroiliac joints. Neurologic: Alert, oriented x3. Extremely limited motor function of the right upper extremity. History, physical examination, and personal review of pertinent imaging results indicate a diagnosis of: -Right shoulder contracture -Right shoulder pain -Multiple sclerosis Plan: -Right upper extremity was injected today and 5 total muscle groups with Botox, 400 units, procedure described low Discussed that we can follow-up in 3 months or sooner if needed we can also perform right shoulder intra-articular corticosteroid injection as long as they provide effective relief for her, we will also continue her on Lyrica 200 mg 3 times daily as this is effective for her as well An in office procedure was performed today. Risks and benefits were discussed at length, verbal consent was obtained from the patient. The areawas prepped under strict aseptic technique using chloraprep solution, sterile gloves were utilized. Location: Right upper extremity, multiple muscle groups. Ultrasound was utilized to identify these muscles Anatomic Landmarks: Pectoralis muscle as well as the FCR, FDP, and right deltoid as well as right latissimus dorsi. Stimuplex needle was utilized for visualization under ultrasound. Medications: 400 units of Botox was diluted into 8 cc of normal saline, 3 cc of 2% lidocaine was injected at the needle insertion sites. Procedure: Patient was identified, procedural sites were identified and prior notes were reviewed prior to performing this. We injected 400 units of Botox total after cleaning the skin and identifying muscle groups using sterile equipment and an ultrasound device. Before injection of any Botox, aspiration was performed and did not reveal any vascular uptake at each site. The sites were identified as below: 1. 150u RUE pectoralis, divided between 2 sites 2. 50u RUE flexor carpi radialis, 1 site 3. 50u RUE flexor digitorum profundus 4. 100u RUE deltoid 5. 50u RUE latissimus dorsi the patient tolerated the procedure well without complication and will follow up regarding changes after procedure. Patient observed post-procedure without further issue or new complaints. Improvement in pain was noted. Patient was counseled on the above diagnosis and treatment, all questions were answered and patientagrees to adhere to the plan above. Risk and benefits of appropriate procedures and medications were reviewed as well with patient, who voiced understanding and agreeance. Patient was counseled on appropriate use of opioids if prescribed or renewed today and naloxone was offered to patient if opioids were prescribed or maintained at this visit. PHQ-2 scoring reviewed with patient and discussed seeking treatment for depression or mood disorder as appropriate. Patient was counseled on smoking cessation and/or [...] or concerns that arise. Future Appointments Appointment Date:12/03/2023 08:30:00 AM Scheduled Provider: Location:.PH[place]ICAL [place] Appointment Type:PT 60 (FT) Appointment Date:12/03/2023 09:30:00 AM Scheduled Provider: Location:FT.OCCUPATIONAL Appointment Type:OT 60 (FT) Appointment Date:12/04/2023 02:30:00 PM Scheduled Provider:Lakia Mcdonnell [facility] Appointment Type:URO Office Visit Appointment Date:12/05/2023 12:15:00 PM Scheduled Provider: Location:.OCCUPATIONAL Appointment Type:OT 60 (FT) Appointment Date:12/05/2023 01:45:00 PM Scheduled Provider: Location:.PH[place]ICAL [place] Appointment Type:PT 60 (FT) Appointment Date:12/11/2023 09:00:00 AM Scheduled Provider: Location:FT.PHYSICAL [place] Appointment Type:PT 60 (FT) Appointment Date:12/11/2023 10:00:00 AM Scheduled Provider: Location:.OCCUPATIONAL Appointment Type:OT 60 (FT) Appointment Date:12/13/2023 08:30:00 AM Scheduled Provider: Location:FT.OCCUPATIONAL Appointment Type:OT 60 (FT) Appointment Date:12/13/2023 09:30:00 AM Scheduled Provider: Location:FT.PHYSICAL [place] Appointment Type:PT 60 (FT) Appointment Date:12/16/2023 08:45:00 AM Scheduled Provider: Location:FT.PHYSICAL [place] Appointment Type:PT 60 (FT) Appointment Date:12/16/2023 09:45:00 AM Scheduled Provider: Location:FT.OCCUPATIONAL Appointment Type:OT 60 (FT) Appointment Date:12/19/2023 08:30:00 AM Scheduled Provider: Location:FT.PHYSICAL [place] Appointment Type:PT 60 (FT) Appointment Date:12/19/2023 09:30:00 AM Scheduled Provider: Location:FT.OCCUPATIONAL Appointment Type:OT Re-Eval (FT) Appointment Date:12/23/2023 08:45:00 AM Scheduled Provider: Location:FT.PHYSICAL [place] Appointment Type:PT 60 (FT) Appointment Date:12/23/2023 09:45:00 AM Scheduled Provider: Location:FT.OCCUPATIONAL Appointment Type:OT 60 (FT) Appointment Date:12/26/2023 08:30:00 AM Scheduled Provider: Location:FT.PHYSICAL [place] Appointment Type:PT Re-Eval 60 (FT) Appointment Date:12/26/2023 09:30:00 AM Scheduled Provider: Location:FT.OCCUPATIONAL Appointment Type:OT 60 (FT) Appointment Date:12/30/2023 08:45:00 AM Scheduled Provider: Location:FT.PHYSICAL [place] Appointment Type:PT 60 (FT) Appointment Date:12/30/2023 09:45:00 AM Scheduled Provider: Location:FT.OCCUPATIONAL Appointment Type:OT 60 (FT) Appointment Date:01/02/2024 08:30:00 AM Scheduled Provider: Location:FT.PHYSICAL [place] Appointment Type:PT 60 (FT) Appointment Date:01/02/2024 09:30:00 AM Scheduled Provider: Location:FT.OCCUPATIONAL Appointment Type:OT 60 (FT) Appointment Date:01/06/2024 08:45:00 AM Scheduled Provider: Location:FT.PHYSICAL [place] Appointment Type:PT 60 (FT) Appointment Date:01/06/2024 09:45:00 AM Scheduled Provider: Location:FT.OCCUPATIONAL Appointment Type:OT 60 (FT) Appointment Date:01/09/2024 08:30:00 AM Scheduled Provider: Location:.PH[place]ICAL [place] Appointment Type:PT 60 (FT) Appointment Date:01/09/2024 09:30:00 AM Scheduled Provider: Location:FT.OCCUPATIONAL Appointment Type:OT 60 (FT) Appointment Date:01/13/2024 08:45:00 AM Scheduled Provider: Location:FT.PHYSICAL [place] Appointment Type:PT 60 (FT) Appointment Date:01/13/2024 09:45:00 AM Scheduled Provider: Location:FT.OCCUPATIONAL Appointment Type:OT 60 (FT) Appointment Date:01/15/2024 08:45:00 AM Scheduled Provider: Location:FT.PHYSICAL [place] Appointment Type:PT 60 (FT) Appointment Date:01/15/2024 10:00:00 AM Scheduled Provider: Location:FT.OCCUPATIONAL Appointment Type:OT Re-Eval (FT) Appointment Date:01/20/2024 08:45:00 AM Scheduled Provider: Location:FT.PHYSICAL [place] Appointment Type:PT 60 (FT) Appointment Date:01/20/2024 09:45:00 AM Scheduled Provider: Location:FT.OCCUPATIONAL Appointment Type:OT 60 (FT) Appointment Date:01/23/2024 08:30:00 AM Scheduled Provider: Location:.PH[place]ICAL [place] Appointment Type:PT Re-Eval 60 (FT) Appointment Date:01/23/2024 09:30:00 AM Scheduled Provider: Location:FT.OCCUPATIONAL Appointment Type:OT 60 (FT) Appointment Date:01/29/2024 09:00:00 AM Scheduled Provider: Location:FT.PHYSICAL [place] Appointment Type:PT 60 (FT) Appointment Date:01/29/2024 10:00:00 AM Scheduled Provider: Location:FT.OCCUPATIONAL Appointment Type:OT 60 (FT) Appointment Date:01/31/2024 08:30:00 AM Scheduled Provider: Location:FT.OCCUPATIONAL Appointment Type:OT 60 (FT) Appointment Date:01/31/2024 09:45:00 AM Scheduled Provider: Location:FT.PHYSICAL [place] Appointment Type:PT 60 (FT) Appointment Date:02/03/2024 08:45:00 AM Scheduled Provider: Location:FT.PHYSICAL [place] Appointment Type:PT 60 (FT) Appointment Date:02/03/2024 10:00:00 AM Scheduled Provider: Location:FT.OCCUPATIONAL Appointment Type:OT 60 (FT) Appointment Date:02/06/2024 08:30:00 AM Scheduled Provider: Location:FT.PHYSICAL [place] Appointment Type:PT 60 (FT) Appointment Date:02/06/2024 09:30:00 AM Scheduled Provider: Location:FT.OCCUPATIONAL Appointment Type:OT 60 (FT) Appointment Date:02/10/2024 08:45:00 AM Scheduled Provider: Location:FT.PHYSICAL [place] Appointment Type:PT 60 (FT) Appointment Date:02/10/2024 10:00:00 AM Scheduled Provider: Location:FT.OCCUPATIONAL Appointment Type:OT 60 (FT) Appointment Date:02/13/2024 08:30:00 AM Scheduled Provider: Location:.PHYSICAL [place] Appointment Type:PT 60 (FT) Appointment Date:02/13/2024 10:00:00 AM Scheduled Provider: Location:FT.OCCUPATIONAL Appointment Type:OT Re-Eval (FT) Appointment Date:02/17/2024 08:45:00 AM Scheduled Provider: Location:FT.PHYSICAL [place] Appointment Type:PT Re-Eval 60 (FT) Appointment Date:02/17/2024 10:00:00 AM Scheduled Provider: Location:FT.OCCUPATIONAL Appointment Type:OT 60 (FT) [facility] 10-10-2024 NoteHNO ID: [id number] Author: ?, ?, ? Service: ? Author Type: ? Type: Progress Notes Filed: 11/28/2023 10:17 Note Text: Received completed/signed Occupational Therapy Form/Plan of Care; [facility]ed [facility]: [facility] [phone] History of Present illness Narrative* Steffanie Montenegro - 11/28/2023 10:15 AM EDT Received completed/signed Occupational Therapy Form/Plan of Care; faxed to: [facility] [phone] confirmation received [facility] Evaluation + Plan note Future Appointments Appointment Date:12/05/2023 12:15:00 PM Scheduled Provider: Location:FT.OCCUPATIONAL Appointment Type:OT 60 (FT) Appointment Date:12/05/2023 01:45:00 PM Scheduled Provider: Location:FT.PHYSICAL [place] Appointment Type:PT 60 (FT) Appointment Date:12/11/2023 09:00:00 AM Scheduled Provider: Location:FT.PHYSICAL [place] Appointment Type:PT 60 (FT) Appointment Date:12/11/2023 10:00:00 AM Scheduled Provider: Location:FT.OCCUPATIONAL Appointment Type:OT 60 (FT) Appointment Date:12/13/2023 08:30:00 AM Scheduled Provider: Location:FT.OCCUPATIONAL Appointment Type:OT 60 (FT) Appointment Date:12/13/2023 09:30:00 AM Scheduled Provider: Location:FT.PHYSICAL [place] Appointment Type:PT 60 (FT) Appointment Date:12/16/2023 08:45:00 AM Scheduled Provider: Location:FT.PHYSICAL [place] Appointment Type:PT 60 (FT) Appointment Date:12/16/2023 09:45:00 AM Scheduled Provider: Location:FT.OCCUPATIONAL Appointment Type:OT 60 (FT) Appointment Date:12/19/2023 08:30:00 AM Scheduled Provider: Location:FT.PHYSICAL [place] Appointment Type:PT 60 (FT) Appointment Date:12/19/2023 09:30:00 AM Scheduled Provider: Location:FT.OCCUPATIONAL Appointment Type:OT Re-Eval (FT) Appointment Date:12/23/2023 08:45:00 AM Scheduled Provider: Location:FT.PHYSICAL [place] Appointment Type:PT 60 (FT) Appointment Date:12/23/2023 09:45:00 AM Scheduled Provider: Location:FT.OCCUPATIONAL Appointment Type:OT 60 (FT) Appointment Date:12/26/2023 08:30:00 AM Scheduled Provider: Location:FT.PHYSICAL [place] Appointment Type:PT Re-Eval 60 (FT) Appointment Date:12/26/2023 09:30:00 AM Scheduled Provider: Location:FT.OCCUPATIONAL Appointment Type:OT 60 (FT) Appointment Date:12/30/2023 08:45:00 AM Scheduled Provider: Location:FT.PHYSICAL [place] Appointment Type:PT 60 (FT) Appointment Date:12/30/2023 09:45:00 AM Scheduled Provider: Location:FT.OCCUPATIONAL Appointment Type:OT 60 (FT) Appointment Date:01/02/2024 08:30:00 AM Scheduled Provider: Location:FT.PHYSICAL [place] Appointment Type:PT 60 (FT) Appointment Date:01/02/2024 09:30:00 AM Scheduled Provider: Location:FT.OCCUPATIONAL Appointment Type:OT 60 (FT) Appointment Date:01/06/2024 08:45:00 AM Scheduled Provider: Location:FT.PHYSICAL [place] Appointment Type:PT 60 (FT) Appointment Date:01/06/2024 09:45:00 AM Scheduled Provider: Location:FT.OCCUPATIONAL Appointment Type:OT 60 (FT) Appointment Date:01/09/2024 08:30:00 AM Scheduled Provider: Location:FT.PHYSICAL [place] Appointment Type:PT 60 (FT) Appointment Date:01/09/2024 09:30:00 AM Scheduled Provider: Location:FT.OCCUPATIONAL Appointment Type:OT 60 (FT) Appointment Date:01/13/2024 08:45:00 AM Scheduled Provider: Location:FT.PHYSICAL [place] Appointment Type:PT 60 (FT) Appointment Date:01/13/2024 09:45:00 AM Scheduled Provider: Location:FT.OCCUPATIONAL Appointment Type:OT 60 (FT) Appointment Date:01/15/2024 08:45:00 AM Scheduled Provider: Location:FT.PHYSICAL [place] Appointment Type:PT 60 (FT) Appointment Date:01/15/2024 10:00:00 AM Scheduled Provider: Location:FT.OCCUPATIONAL Appointment Type:OT Re-Eval (FT) Appointment Date:01/20/2024 08:45:00 AM Scheduled Provider: Location:FT.PHYSICAL [place] Appointment Type:PT 60 (FT) Appointment Date:01/20/2024 09:45:00 AM Scheduled Provider: Location:FT.OCCUPATIONAL Appointment Type:OT 60 (FT) Appointment Date:01/23/2024 08:30:00 AM Scheduled Provider: Location:FT.PHYSICAL [place] Appointment Type:PT Re-Eval 60 (FT) Appointment Date:01/23/2024 09:30:00 AM Scheduled Provider: Location:FT.OCCUPATIONAL Appointment Type:OT 60 (FT) Appointment Date:01/29/2024 09:00:00 AM Scheduled Provider: Location:FT.PHYSICAL [place] Appointment Type:PT 60 (FT) Appointment Date:01/29/2024 10:00:00 AM Scheduled Provider: Location:FT.OCCUPATIONAL Appointment Type:OT 60 (FT) Appointment Date:01/31/2024 08:30:00 AM Scheduled Provider: Location:FT.OCCUPATIONAL Appointment Type:OT 60 (FT) Appointment Date:01/31/2024 09:45:00 AM Scheduled Provider: Location:FT.PHYSICAL [place] Appointment Type:PT 60 (FT) Appointment Date:02/03/2024 08:45:00 AM Scheduled Provider: Location:FT.PHYSICAL [place] Appointment Type:PT 60 (FT) Appointment Date:02/03/2024 10:00:00 AM Scheduled Provider: Location:FT.OCCUPATIONAL Appointment Type:OT 60 (FT) Appointment Date:02/06/2024 08:30:00 AM Scheduled Provider: Location:.PHYSICAL [place] Appointment Type:PT 60 (FT) Appointment Date:02/06/2024 09:30:00 AM Scheduled Provider: Location:FT.OCCUPATIONAL Appointment Type:OT 60 (FT) Appointment Date:02/10/2024 08:45:00 AM Scheduled Provider: Location:FT.PHYSICAL [place] Appointment Type:PT 60 (FT) Appointment Date:02/10/2024 10:00:00 AM Scheduled Provider: Location:FT.OCCUPATIONAL Appointment Type:OT 60 (FT) Appointment Date:02/13/2024 08:30:00 AM Scheduled Provider: Location:FT.PHYSICAL [place] Appointment Type:PT 60 (FT) Appointment Date:02/13/2024 10:00:00 AM Scheduled Provider: Location:FT.OCCUPATIONAL Appointment Type:OT Re-Eval (FT) Appointment Date:02/17/2024 08:45:00 AM Scheduled Provider: Location:FT.PHYSICAL [place] Appointment Type:PT Re-Eval 60 (FT) Appointment Date:02/17/2024 10:00:00 AM Scheduled Provider: Location:FT.OCCUPATIONAL Appointment Type:OT 60 (FT) [facility] [place] [id number] Telephone encounter Note* Telephone Encounter - Juanita Corado PA-C - 09/17/2023 6:58 PM EDT The following approved medication requests have been transmitted electronically. Requested Prescriptions Signed Prescriptions Disp Refills methocarbamol (ROBAXIN) 500 mg tablet 90 tablet 5 Sig: TAKE 1 TABLET BY MOUTH IN THE MORNING AND 2 TABLETS AT NIGHT Authorizing Provider: JUANITA CORADO PA-C [facility]07-30[facility] Miscellaneous Notes* Telephone Encounter - Juanita Corado PA-C - 09/17/2023 6:58 PM EDT The following approved medication requests have been transmitted electronically. Requested Prescriptions Signed Prescriptions Disp Refills methocarbamol (ROBAXIN) 500 mg tablet 90 tablet 5 Sig: TAKE 1 TABLET BY MOUTH IN THE MORNING AND 2 TABLETS AT NIGHT Authorizing Provider: JUANITA CORADO PA-C * Telephone Encounter - Jenny Pillai RN - 09/17/2023 4:20 PM EDT Seen 01/30/[address] Barrios for botox injections Baclofen stopped a few months ago. Was taking 20mg twice a day. Would like to restart 03/28/22 seen by Sameer Siu: restart robaxin Last robaxin script written 09/10/22 for 6 months * Telephone Encounter - Steffanie Montenegro - 09/17/2023 4:05 PM EDT Source : electronic from pharmacy requesting refill. Delivery : e-script Requested Prescriptions Pending Prescriptions Disp Refills methocarbamol (ROBAXIN) 500 mg tablet [Pharmacy Med Name: METHOCARBAMOL 500 MG TABLET] 90 tablet 5 Sig: TAKE 1 TABLET BY MOUTH IN THE MORNING AND 2 TABLETS AT NIGHT DX : Patient last seen 01/30/2023 Next Appointment : RADHA Montenegro documented in [facility] Telephone encounter Note * Telephone Encounter - Jenny Pillai RN - 09/17/2023 4:20 PM EDT Seen 01/30/[address] Barrios for botox injections Baclofen stopped a few months ago. Was taking 20mg twice a day. Would like to restart 03/28/22 seen by Sameer Siu: restart robaxin Last robaxin script written 09/10/22 for 6 months [facility] Work Phone: [phone] Telephone encounter Note* Telephone Encounter - Steffanie Montenegro - 09/17/2023 4:05 PM EDT Source : electronic from pharmacy requesting refill. Delivery : e-script Requested Prescriptions Pending Prescriptions Disp Refills methocarbamol (ROBAXIN) 500 mg tablet [Pharmacy Med Name: METHOCARBAMOL 500 MG TABLET] 90 tablet 5 Sig: TAKE 1 TABLET BY MOUTH IN THE MORNING AND 2 TABLETS AT NIGHT DX : Patient last seen 01/30/2023 Next Appointment : NONE Steffanie Montenegro [facility]07-30-2024 Instructions* Patient Instructions* Justina Fuentes MD - 09/17/2023 1:50 PM EDT Comprehensive metabolic panel - you can print off the order from [facility] - message my office if youare having trouble with this. documented in this encounterFlower Hospital07-30-2024 History of Present illness Narrative* Justina Fuentes MD - 09/17/2023 1:30 PM EDT Images from the original note were not included. [facility] for General Neurology - VIRTUAL VISIT Established Patient: It's great to see you again. I want to confirm you are in [place] [state where the patient is located] today, and check in to confirm your consent to be seen virtually. Name: Jessica Gutierrez Age: [age] year old Gender: female Primary Care Provider: Hunter Quinteros MD Assessment/Plan: 09/17/2023 - General Neurology, Justina Fuentes MD ASSESSMENT 48-year-old woman previously followed for MR negative transverse myelitis, now being treated locally with Botox for spasticity. She presents today for a new concern of migraines. Her first preventative agent was very effective for her and she remains on it, oxcarbazepine takes 300 mg every morning and 300-600 mg nightly. We will check a comprehensive metabolic panel. Monitor electrolytes for hyponatremia, CBC for reduced blood counts, AST ALT. For rescue medications, she has tried multiple triptans including Eletriptan and sumatriptan without effect. Nurtec has been tried most recently without effect. We will try Ubrelvy. Future considerations include Reyvow or Zavzpret (zavegepant). Could also consider another more effective preventative which could help effectiveness of rescues. She will continue to get spasticity treatment locally and physical therapy locally. PLAN CMP Ubrelvy 50 mg as needed for migraine. Continue oxcarbazepine 300 mg every morning and 300 to 600 mg nightly. We will request a precertification for a Calcitonin Gene-Related Peptide Receptor Antagonist (GEPANT) Ubrogepant for the rescue treatment of episodic migraine. This patient meets ICHD-3 criteria for treatment of migraine with a small molecule CGRP antagonist GEPANT. The FDA has approved GEPANTS forthe treatment of migraine. Specifically, the patient has 4 headaches per month, lasting 4 or more hours/day associated with photophobia, phonophobia, nausea, lacrimation for three or more months. Medication overuse headache has been ruled out.Patient will not use with another GEPANT. The patient has tried and failed the following : Sumatriptan, eletriptan, Nurtec Encounter Diagnosis ICD-10-CM 1. Intractable migraine without aura and without status migrainosus G43.019 [facility] ORDERED FOLLOW UP 2. Transverse myelitis (HCC) G37.3 November follow-up scheduled. Chart, labs,and relevant images reviewed. Chief Complaint:Patient presents with: Follow Up Headaches Chart Review: Last seen in 2021 for likely MR negative transverse myelitis. Saw Dr. Hassan, serum workup negative, no underlying demyelinating disorder found. Also has seeing Dr. Barrios for botox, now getting this done locally. Made new appointment for migraines. HPI: This is a 48 year old female presenting with migraines. On oxcarb - this was her first preventative. Sumatriptan, eletriptan have been tried as rescues without effect. Nurtec has also been tried without effect. Other triptans have been tried but she does not recognize the names. HEADACHE LOCATION: retroorbital R>L Onset: Headaches began 7 years ago (since R vision issues) Quality: throbbing Photophobia? Yes Phonophobia? Yes very much Nausea? Yes Vomitting? No - has zofran Aura? No Worse with activity? No Severe? Yes Frequency: 3-4 times a month Duration? Up to 3 days - sometimes goes to PCP for toradol Caffeine intake? None Water intake? Eight or more 8 ounce glasses daily. Triggers? Not sure History of concussion? No Autonomic features: not side-locked. Worse tearing during migraine (but ongoing R eye issues from uveitis). Previous/Current Headache treatment Preventative: oxcarb This improved her frequency - prior she had weekly migraines lasting 3 days Rescue: Relpax , Imitrex , Amerge , and Rimegepant (Nurtec) Nurtec doesn't do anything. # of doses of abortive medications per month: < 10 days/month (or 8 for opiates, 5 for barbiturates) Medication Overuse Headache concern? No Doing physical therapy and botox closer to home now . Review of Systems ACTIVE PROBLEM LIST Hypoglycemic Reaction Pain of Right Sacroiliac Joint Ddd (Degenerative Disc Disease), Lumbosacral Iritis Uveitic Glaucoma of Right Eye, Mild Stage Obesity, Class I, Bmi 30-34.9 Acute Transverse Myelitis (Hcc) PAST MEDICAL HISTORY Diagnosis Date Bowel incontinence Gastroparesis HTN (hypertension) Hypoglycemic reaction Iritis 02/2016 Migraine Right hemiplegia (HCC) Steroid-induced glaucoma OD Urinary retention Uveitis of right eye Wheelchair bound Medications: Reviewed ubrogepant (UBRELVY) 50 mg tablet Take 1 tablet by mouth as needed. baclofen 20 mg tablet Take 1 tablet by mouth two times a day. allopurinol (ZYLOPRIM) 100 mg tablet Take 1 tablet by mouth every afternoon. oxybutynin XL (DITROPAN XL) 5 mg 24 hr tablet Take 1 tablet by mouth every afternoon. K-PHOS ORIGINAL 500 mg tablet Take 1 tablet by mouth every 12 hours. methocarbamol (ROBAXIN) 500 mg tablet TAKE 1 TABLET BY MOUTH IN THE MORNING AND 2 TABLETS AT NIGHT traMADol (ULTRAM) 50 mg tablet Take 1 tablet by mouth as needed. rimegepant (NURTEC ODT) 75 mg disintegrating tablet Take 1 tablet by mouth once daily as needed. potassium chloride (K-TAB) 10 mEq tablet Take 2 tablets by mouth twice daily. linaCLOtide (LINZESS) 290 mcg capsule Take 1 capsule by mouth DAILY (6 AM). meclizine (ANTIVERT) 25 mg tab Take 1 tablet by mouth every 4 hours as needed (for dizziness.). ascorbic acid, vitamin C, (VITAMIN C) 500 mg tablet Take 1 tablet by mouth once daily. pregabalin (LYRICA) 150 mg capsule Take 1 capsule by mouth four times daily for 180 days. clopidogrel (PLAVIX) 75 mg tablet clopidogrel 75 [...] by mouth once daily. takes twice daily. SUMAtriptan (IMITREX) 100 mg tablet Take 100 mg by mouth as needed. hyoscyamine sublingual (LEVSIN SL) 0.125 mg subl Dissolve 0.125 mg under the tongue as needed. pantoprazole DR (PROTONIX) 40 mg tablet Take 1 tablet by mouth once daily. ALLERGIES Allergen Reactions Gadolinium-Containi* Anaphylaxis Amitriptyline Hcl Rash Cabbage Vomiting FAMILY HISTORY Problem Relation Age of Onset Stroke Mother Cancer Mother Heart Mother COPD GI Mother Diverticulitis Hypertension Father Arthritis Father Diabetes Father Rheumatologic disease Father Cataract Maternal Grandmother Cataract Maternal Grandfather Cataract Paternal Grandmother Cataract Paternal Grandfather Rheumatologic disease Paternal Aunt PAST SURGICAL HISTORY Procedure Laterality Date COLONOSCOPY 2018 polyps removed EGD 2018 HYSTERECTOMY HX KNEE ARTHROSCOPY/SURGERY Right SPINAL CORD STIM PERCT SCS ELCT 2018 Social Hx: @Alcohol Use: Not on file Tobacco Use: Low Risk (01/31/2023) Patient History Smoking Tobacco Use: Never Smokeless Tobacco Use: Never Passive Exposure: Not on file Virtual Visit Neurologic Exam Cognitive and Language: Alert and answered questions appropriately. Language was fluent. Cranial Nerves: Facial strength was symmetric. Keeps right eye closed due to previous uveitis/blurriness. No facial droop. Labs: Lab Results Component Value Date WBC 6.57 10/20/2021 HCT 36.9 10/20/2021 MCV 81.8 10/20/2021 PLT 227 10/20/2021 Sodium Date Value Ref Range Status 10/20/2021 137 136 - 144 mmol/L Final AST Date Value Ref Range Status 10/20/2021 41 (H) 13 - 35 U/L Final ALT Date Value Ref Range Status 10/20/2021 34 7 - 38 U/L Final Radiology: MRI Head/Brain - Last 2 Impressions MRI BRAIN WO IVCON Exam End: 10/27/2021 12:15 PM (Final result) Impression: IMPRESSION: No evidence of an acute intracranial process. Unremarkable appearance of the cerebral white matter. ... MRI Spine - Last 2 Impressions MRI THORACIC SPINE WO IVCON Exam End: 10/27/2021 12:15 PM (Final result) Impression: IMPRESSION: No evidence of an acute intracranial process. Unremarkable appearance of the cerebral white matter. No signal abnormality in the cervical or thoracic cord. Mild degenerative change in the cervical and thoracic spine without significant canal or foraminal stenosis. Spinal stimulator in stable position. Cervical Anatomic Variant: None. Assume 7 cervical vertebrae with counting from the craniocervical junction. Anatomic Thoracic/Lumbar Variant: Hydramatic Mechanic: CJ Transcribe Date/Time: Oct 27 2021 12:50P Dictated by : FRANCISCO POLO MD This examination was interpreted and the report reviewed and electronically signed by: FRANCISCO POLO MD on Oct 27 2021 1:14PM EST MRI CERVICAL SPINE WO IVCON Exam End: 10/27/2021 12:15 PM (Final result) Impression: IMPRESSION: No evidence of an acute intracranial process. Unremarkable appearance of the cerebral white matter. No signal abnormality in the cervical or thoracic cord. Mild degenerative change in the cervical and thoracic spine without significant canal or foraminal stenosis. Spinal stimulator in stable position. Cervical Anatomic Variant: None. Assume 7 cervical vertebrae with counting from the craniocervical junction. Anatomic Thoracic/Lumbar Variant: Hydramatic Mechanic: CJ Transcribe Date/Time: Oct 27 2021 12:50P Dictated by : FRANCISCO POLO MD This examination was interpreted and the report reviewed and electronically signed by: FRANCISCO POLO MD on Oct 27 2021 1:14PM EST This note was dictated using Mett[employer] speech recognition software and may contain some errors that were a result of the program not accurately transcribing what was dictated, despite efforts to make corrections. Note that unless urgent, test and MRI results will be discussed at next follow- up visit. PROMIS (Patient-Reported Outcomes Measurement Information System) is a set of person-centered measures that evaluates and monitors physical, social, and emotional health. It can be used with the general population and with individuals living with chronic conditions. PROMIS 10: PHYSICAL AND MENTAL HEALTH: 10/19/2021 PHQ-9 PHQ-2 Score 3 PHQ-9 Score 10 Medical Decision Making: Medical Decision Making Level: 1 - N/A Time spent including documentation and chart review, 33 minutes. [facility] NoteHNO ID: [id number] Author: JUSTINA FUENTES MD Service: ? Author Type: Physician Type: Progress Notes Filed: 09/17/2023 14:06 Note Text: [facility] for General Neurology - VIRTUAL VISIT Established Patient: It's great to see you again. I want to confirm you are in [place] [state where the patient is located] today, and check in to confirm your consent to be seen virtually. Name: Jessica Gutierrez Age: [age] year old Gender: female Primary Care Provider: Hunter Quinteros MD Assessment/Plan: 09/17/2023 - General Neurology, Justina Fuentes MD ASSESSMENT 48-year-old woman previously followed for MR negative transverse myelitis, now being treated locally with Botox for spasticity. She presents today for a new concern of migraines. Her first preventative agent was very effective for her and she remains on it, oxcarbazepine takes 300 mg every morning and 300-600 mg nightly. We will check a comprehensive metabolic panel. Monitor electrolytes for hyponatremia, CBC for reduced blood counts, AST ALT. For rescue medications, she has tried multiple triptans including Eletriptan and sumatriptan without effect. Nurtec has been tried most recently without effect. We will try Ubrelvy. Future considerations include Reyvow or Zavzpret (zavegepant). Could also consider another more effective preventative which could help effectiveness of rescues. She will continue to get spasticity treatment locally and physical therapy locally. PLAN CMP Ubrelvy 50 mg as needed for migraine. Continue oxcarbazepine 300 mg every morning and 300 to 600 mg nightly. We will request a precertification for a Calcitonin Gene-Related Peptide Receptor Antagonist (GEPANT) Ubrogepant for the rescue treatment of episodic migraine. This patient meets ICHD-3 criteria for treatment of migraine with a small molecule CGRP antagonist GEPANT. The FDA has approved GEPANTS for the treatment of migraine. Specifically, the patient has 4 headaches per month, lasting 4 or more hours/day associated with photophobia, phonophobia, nausea, lacrimation for three or more months. Medication overuse headache has been ruled out.Patient will not use with another GEPANT. The patient has tried and failed the following : Sumatriptan, eletriptan, Nurtec Encounter Diagnosis ICD-10-CM 1. 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 Transverse myelitis (HCC) G37.3 November follow-up scheduled. Chart, labs,and relevant images reviewed. Chief Complaint:Patient presents with: Follow Up Headaches Chart Review: Last seen in 2021 for likely MR negative transverse myelitis. Saw Dr. Hassan, serum workup negative, no underlying demyelinating disorder found. Also has seeing Dr. Barrios for botox, now getting this done locally. Made new appointment for migraines. HPI: This is a 48 year old female presenting with migraines. On oxcarb - this was her first preventative. Sumatriptan, eletriptan have been tried as rescues without effect. Nurtec has also been tried without effect. Other triptans have been tried but she does not recognize the names. HEADACHE LOCATION: retroorbital R>L Onset: Headaches began 7 years ago (since R vision issues) Quality: throbbing Photophobia? Yes Phonophobia? Yes very much Nausea? Yes Vomitting? No - has zofran Aura? No Worse with activity? No Severe? Yes Frequency: 3-4 times a month Duration? Up to 3 days - sometimes goes to PCP for toradol Caffeine intake? None Water intake? Eight or more 8 ounce glasses daily. Triggers? Not sure History of concussion? No Autonomic features: not side-locked. Worse tearing during migraine (but ongoing R eye issues from uveitis). Previous/Current Headache treatment Preventative: oxcarb This improved her frequency - prior she had weekly migraines lasting 3 days Rescue: Relpax , Imitrex , Amerge , and Rimegepant (Nurtec) Nurtec doesn't do anything. # of doses of abortive medications per month: < 10 days/month (or 8 for opiates, 5 for barbiturates) Medication Overuse Headache concern? No Doing physical therapy and botox closer to home now . Review of Systems ACTIVE PROBLEM LIST Hypoglycemic Reaction Pain of Right Sacroiliac Joint Ddd (Degenerative Disc Disease), Lumbosacral Iritis Uveitic Glaucoma of Right Eye, Mild Stage Obesity, Class I, Bmi 30-34.9 Acute Transverse Myelitis (Hcc) PAST MEDICAL HISTORY Diagnosis Date Bowel incontinence Gastroparesis HTN (hypertension) Hypoglycemic reaction Iritis 02/2016 Migraine Right hemiplegia (HCC) Steroid-induced glaucoma OD Urinary retention Uveitis of right eye Wheelchair bound Medications: Reviewed ubrogepant (UBRELVY) 50 mg tablet Take 1 tablet by mouth as needed. baclofen 20 mg tablet Take 1 tablet by mouth two times a day. allopurinol (ZYLOPRIM) 100 mg tablet Take 1 table (more content not included)... [facility]07-11-2024 Evaluation + Plan noteExtracted from:Title: chronic painAuthor:Camilo Deras DO.Date:08/29/23 Patient is presenting with h istory of multiple sclerosis, right upper extremity contracture, right shoulder pain. She rates her pain as a 5/10 to 8/10 in severity particularly on this right side. She has been receiving right upper extremity Botox injections into the specific muscle groups that we reviewed the records for her in the past and today. She is presenting today for Botox injection. Additionally, she is taking Lyrica 200 mg 3 times daily with good benefit. Today we performed in office injection with 400 units of Botox in the right upper extremity under ultrasound guidance using a Stimuplex needle. Patient tolerated the procedure well we discussed medication refills and any additional changes that may be required, she is taking his medication without any issue. At her last office visit she had a right shoulder intra-articular injection that she reports she received 80% relief ongoing. We discussed that we can repeat these procedures as needed for her. REID Score: 73% PHQ-2: 5, actively treated Patient denies any symptoms of progressively worsening upper/lower extremity weakness, progressively worsening gait abnormality, new onset bowel/bladder incontinence/ urinary retention, or saddle anesthesia. No new or worsening symptoms of fever, chills, night sweats. 14 Point Review of systems negative unless otherwise noted. General: No acute distress. Patient appears well-nourished. HEENT: Head is normocephalic and external ears are normal in appearance. Cardiovascular: No signs of poor perfusion and no peripheral edema Pulmonary: Nonlabored breathing, symmetric chest movement. GI: Abdomen nondistended Integumentary: No lesions Musculoskeletal: Nontender to palpation over the paraspinal muscles, facets, and sacroiliac joints. Neurologic: Alert, oriented x3. Extremely limited motor function of the right upper extremity. History, physical examination, and personal review of pertinent imaging results indicate a diagnosis of: -Right shoulder contracture -Right shoulder pain -Multiple sclerosis Plan: -Right upper extremity was injected today and 5 total muscle groups with Botox, 400 units, procedure described low Discussed that we can follow-up in 3 months or sooner if needed we can also perform right shoulder intra-articular corticosteroid injection as long as they provide effective relief for her, we will also continue her on Lyrica 200 mg 3 times daily as this is effective for her as well An in office procedure was performed today. Risks and benefits were discussed at length, verbal consent was obtained from the patient. The areawas prepped under strict aseptic technique using chloraprep solution, sterile gloves were utilized. Location: Right upper extremity, multiple muscle groups. Ultrasound was utilized to identify the the Anatomic Landmarks: Pectoralis muscle as well as the FCR, FDP, and right deltoid as well as right latissimus dorsi. Stimuplex needle was utilized to stimulate these muscle groups and resulted in muscle fasciculations. Medications: 400 units of Botox was diluted into 8 cc of normal saline, 3 cc of 2% lidocaine was injected at the needle insertion sites. Procedure: Patient was identified, procedural sites were identified and prior notes were reviewed prior to performing this. We injected 400 units of Botox total after cleaning the skin and identifying muscle groups using sterile equipment and an ultrasound device. A Stimuplex needle was utilized toidentify the muscle groups and assure contraction of these muscles. Before injection of any Botox, aspiration was performed and did not reveal any vascular uptake at each site. The sites were identified as below: 1. 150u RUE pectoralis, divided between 2 sites 2. 50u RUE flexor carpi radialis, 1 site 3. 50u RUE flexor digitorum profundus 4. 100u RUE deltoid 5. 50u RUE latissimus dorsi the patient tolerated the procedure well without complication and will follow up regarding changes after procedure. Patient observed post-procedure without further issue or new complaints. Improvement in pain was noted. Patient was counseled on the above diagnosis and treatment, all questions were answered and patientagrees to adhere to the plan above. Risk and benefits of appropriate procedures and medications were reviewed as well with patient, who voiced understanding and agreeance. Patient was counseled on appropriate use of opioids if prescribed or renewed today and naloxone was offered to patient if opioids were prescribed or maintained at this visit. PHQ-2 scoring reviewed with patient and discussed seeking treatment for depression or mood disorder as appropriate. Patient was counseled on smoking cessation and/or [...] or concerns that arise. Future Appointments Appointment Date:09/02/2023 08:30:00 AM Scheduled Provider: Location:.[place] Appointment Type:PT 60 (FT) Appointment Date:09/02/2023 09:30:00 AM Scheduled Provider: Location:.OCCUPATIONAL Appointment Type:OT 60 (FT) Appointment Date:09/04/2023 08:45:00 AM Scheduled Provider: Location[facility] Appointment Type:PT 60 (FT) Appointment Date:09/04/2023 10:00:00 AM Scheduled Provider: Location:.OCCUPATIONAL Appointment Type:OT Re-Eval (FT) Appointment Date:09/09/2023 08:30:00 AM Scheduled Provider: Location[facility] Appointment Type:PT 60 (FT) Appointment Date:09/09/2023 09:30:00 AM Scheduled Provider: Location:.OCCUPATIONAL Appointment Type:OT 60 (FT) Appointment Date:09/10/2023 10:00:00 AM Scheduled Provider: Location:[facility] [facility] Appointment Type:URO Nurse Visit Appointment Date:09/11/2023 08:45:00 AM Scheduled Provider: Location[facility] Appointment Type:PT 60 (FT) Appointment Date:09/11/2023 10:00:00 AM Scheduled Provider: Location:FT.OCCUPATIONAL Appointment Type:OT 60 (FT) Appointment Date:09/16/2023 08:30:00 AM Scheduled Provider: Location:.[place] Appointment Type:PT 60 (FT) Appointment Date:09/16/2023 09:30:00 AM Scheduled Provider: Location:FT.OCCUPATIONAL Appointment Type:OT 60 (FT) Appointment Date:09/18/2023 08:45:00 AM Scheduled Provider: Location[facility] Appointment Type:PT Re-Eval 60 (FT) Appointment Date:09/18/2023 10:00:00 AM Scheduled Provider: Location:FT.OCCUPATIONAL Appointment Type:OT 60 (FT) Appointment Date:09/23/2023 08:30:00 AM Scheduled Provider: Location:[place] Appointment Type:PT 60 (FT) Appointment Date:09/23/2023 09:30:00 AM Scheduled Provider: Location:FT.OCCUPATIONAL Appointment Type:OT 60 (FT) Appointment Date:09/25/2023 08:45:00 AM Scheduled Provider: Location[facility] Appointment Type:PT 60 (FT) Appointment Date:09/25/2023 10:00:00 AM Scheduled Provider: Location:FT.OCCUPATIONAL Appointment Type:OT 60 (FT) Appointment Date:09/30/2023 08:30:00 AM Scheduled Provider: Location[facility] Appointment Type:PT 60 (FT) Appointment Date:09/30/2023 09:30:00 AM Scheduled Provider: Location:FT.OCCUPATIONAL Appointment Type:OT 60 (FT) Appointment Date:10/02/2023 08:45:00 AM Scheduled Provider: Location:[place] [place] Appointment Type:PT 60 (FT) Appointment Date:10/02/2023 10:00:00 AM Scheduled Provider: Location:.OCCUPATIONAL Appointment Type:OT Re-Eval (FT) Appointment Date:10/07/2023 08:30:00 AM Scheduled Provider: Location[facility] Appointment Type:PT 60 (FT) Appointment Date:10/07/2023 09:30:00 AM Scheduled Provider: Location:FT.OCCUPATIONAL Appointment Type:OT 60 (FT) Appointment Date:10/09/2023 08:45:00 AM Scheduled Provider: Location:[place] Appointment Type:PT 60 (FT) Appointment Date:10/09/2023 10:00:00 AM Scheduled Provider: Location:FT.OCCUPATIONAL Appointment Type:OT 60 (FT) Appointment Date:10/14/2023 08:30:00 AM Scheduled Provider: Location:[place] [place] Appointment Type:PT 60 (FT) Appointment Date:10/14/2023 09:30:00 AM Scheduled Provider: Location:FT.OCCUPATIONAL Appointment Type:OT 60 (FT) Appointment Date:10/16/2023 08:45:00 AM Scheduled Provider: Location:[place] Appointment Type:PT Re-Eval 60 (FT) Appointment Date:10/16/2023 10:00:00 AM Scheduled Provider: Location:FT.OCCUPATIONAL Appointment Type:OT Re-Eval (FT) [facility]04-08-2024 Miscellaneous Notes* Telephone Encounter - Haile Barrios MD - 05/27/2023 8:07 AM EDT Information reviewed. I agree to change the prescription to a 90-day supply. The following approved medication requests have been transmitted electronically. Requested Prescriptions Signed Prescriptions Disp Refills baclofen 20 mg tablet 180 tablet 3 Sig: Take 1 tablet by mouth two times a day. Authorizing Provider: HAILE BARRIOS MD * Telephone Encounter - Jenny Pillai RN - 05/24/2023 10:27 AM EDT Patient last seen 01/30/[address] Barrios for botox injections: Baclofen stopped a few months ago. Was taking 20mg twice a day. Would like to restart. Last baclofen script written 01/30/23 for 30 day supply; requesting 90 day supply Pending script * Telephone Encounter - Natali Ledezma - 05/24/2023 7:01 AM EDT Pharmacy requesting 90 day supply. Source : electronic from pharmacy requesting refill. Delivery : e-script Requested Prescriptions Pending Prescriptions Disp Refills baclofen 20 mg tablet [Pharmacy Med Name: BACLOFEN 20 MG TABLET] 180 tablet 3 Sig: take 1 tablet by mouth twice a day DX : Patient last seen: 01/30/2023 Next Appointment : None Natali Vigil [facility] Evaluation + Plan note Extracted from:Title:chronic paniAuthor:Braeden LLOYD Camilo HyattMoniqueDate:05/09/23 Patient is presenting with h istory of multiple sclerosis, right upper extremity contracture, right shoulder pain. She rates her pain as a 7/10 in severity particularly on this right side. She has been receiving right upper extremity Botox injections into the specific muscle groups that we reviewed the records for her in the past and today. She is presenting today for Botox injection. Additionally, she is taking Lyrica 200 mg 3 times daily with good benefit. Today we performed in office injection with 400 units of Botox in the right upper extremity under ultrasound guidance using a Stimuplex needle. Patient tolerated the procedure well we discussed medication refills and any additional changes that may be required, she is taking his medication without any issue. At her last office visit she had a right shoulder intra-articular injection that she reports she received 50% relief ongoing. We discussed that we can repeat these procedures as needed for her. REID Score: 52% PHQ-2: 5, actively treated Patient denies any symptoms of progressively worsening upper/lower extremity weakness, progressively worsening gait abnormality, new onset bowel/bladder incontinence/ urinary retention, or saddle anesthesia. No new or worsening symptoms of fever, chills, night sweats. 14 Point Review of systems negative unless otherwise noted. General: No acute distress. Patient appears well-nourished. HEENT: Head is normocephalic and external ears are normal in appearance. Cardiovascular: No signs of poor perfusion and no peripheral edema Pulmonary: Nonlabored breathing, symmetric chest movement. GI: Abdomen nondistended Integumentary: No lesions Musculoskeletal: Nontender to palpation over the paraspinal muscles, facets, and sacroiliac joints. Neurologic: Alert, oriented x3. Extremely limited motor function of the right upper extremity. History, physical examination, and personal review of pertinent imaging results indicate a diagnosis of: -Right shoulder contracture -Right shoulder pain -Multiple sclerosis Plan: -Right upper extremity was injected today and 5 total muscle groups with Botox, 400 units, procedure described low Discussed that we can follow-up in 3 months or sooner if needed we can also perform right shoulder intra-articular corticosteroid injection as long as they provide effective relief for her, we will also continue her on Lyrica 200 mg 3 times daily as this is effective for her as well An in office procedure was performed today. Risks and benefits were discussed at length, verbal consent was obtained from the patient. The areawas prepped under strict aseptic technique using chloraprep solution, sterile gloves were utilized. Location: Right upper extremity, multiple muscle groups. Ultrasound was utilized to identify the the Anatomic Landmarks: Pectoralis muscle as well as the FCR, FDP, and right deltoid as well as right latissimus dorsi. Stimuplex needle was utilized to stimulate these muscle groups and resulted in muscle fasciculations. Medications: 400 units of Botox was diluted into 8 cc of normal saline, 3 cc of 2% lidocaine was injected at the needle insertion sites. Procedure: Patient was identified, procedural sites were identified and prior notes were reviewed prior to performing this. We injected 400 units of Botox total after cleaning the skin and identifying muscle groups using sterile equipment and an ultrasound device. A Stimuplex needle was utilized toidentify the muscle groups and assure contraction of these muscles. Before injection of any Botox, aspiration was performed and did not reveal any vascular uptake at each site. The sites were identified as below: 1. 150u RUE pectoralis, divided between 2 sites 2. 50u RUE flexor carpi radialis, 1 site 3. 50u RUE flexor digitorum profundus 4. 100u RUE deltoid 5. 50u RUE latissimus dorsi the patient tolerated the procedure well without complication and will follow up regarding changes after procedure. Patient observed post-procedure without further issue or new complaints. Improvement in pain was noted. Patient was counseled on the above diagnosis and treatment, all questions were answered and patientagrees to adhere to the plan above. Risk and benefits of appropriate procedures and medications were reviewed as well with patient, who voiced understanding and agreeance. Patient was counseled on appropriate use of opioids if prescribed or renewed today and naloxone was offered to patient if opioids were prescribed or maintained at this visit. PHQ-2 scoring reviewed with patient and discussed seeking treatment for depression or mood disorder as appropriate. Patient was counseled on smoking cessation and/or [...] or concerns that arise. Future Appointments Appointment Date:05/13/2023 08:00:00 AM Scheduled Provider: Location:.OCCUPATIONAL Appointment Type:OT 60 (FT) Appointment Date:05/13/2023 08:45:00 AM Scheduled Provider: Location:.[place] Appointment Type:PT Re-Eval 60 (FT) Appointment Date:05/15/2023 09:00:00 AM Scheduled Provider: Location:FT.[place]ICAL [place] Appointment Type:PT 60 (FT) Appointment Date:05/15/2023 10:30:00 AM Scheduled Provider: Location:FT.OCCUPATIONAL Appointment Type:OT Re-Eval (FT) Appointment Date:05/20/2023 08:30:00 AM Scheduled Provider: Location:FT.OCCUPATIONAL Appointment Type:OT 60 (FT) Appointment Date:05/20/2023 10:15:00 AM Scheduled Provider: Location:FT.[place]ICAL [place] Appointment Type:PT 60 (FT) Appointment Date:05/22/2023 08:45:00 AM Scheduled Provider: Location:FT.[place] [place] Appointment Type:PT 60 (FT) Appointment Date:05/22/2023 10:00:00 AM Scheduled Provider: Location:FT.OCCUPATIONAL Appointment Type:OT 60 (FT) Appointment Date:05/27/2023 08:45:00 AM Scheduled Provider: Location:FT.[place]ICAL [place] Appointment Type:PT 60 (FT) Appointment Date:05/27/2023 09:45:00 AM Scheduled Provider: Location:FT.OCCUPATIONAL Appointment Type:OT 60 (FT) Appointment Date:05/28/2023 09:00:00 AM Scheduled Provider: Location:[facility] Appointment Type:URO Nurse Visit Appointment Date:05/29/2023 08:45:00 AM Scheduled Provider: Location:.[place] Appointment Type:PT 60 (FT) Appointment Date:05/29/2023 10:00:00 AM Scheduled Provider: Location:FT.OCCUPATIONAL Appointment Type:OT 60 (FT) Appointment Date:06/03/2023 09:00:00 AM Scheduled Provider: Location:FT.OCCUPATIONAL Appointment Type:OT 60 (FT) Appointment Date:06/03/2023 10:15:00 AM Scheduled Provider: Location:[place] Appointment Type:PT 60 (FT) Appointment Date:06/05/2023 08:45:00 AM Scheduled Provider: Location:FT[facility] Appointment Type:PT 60 (FT) Appointment Date:06/05/2023 10:00:00 AM Scheduled Provider: Location:FT.OCCUPATIONAL Appointment Type:OT Re-Eval (FT) Appointment Date:06/10/2023 08:45:00 AM Scheduled Provider: Location:FT.[place]ICAL [place] Appointment Type:PT Re-Eval 60 (FT) Appointment Date:06/12/2023 08:45:00 AM Scheduled Provider: Location:FT.[place] Appointment Type:PT 60 (FT) Appointment Date:06/17/2023 08:45:00 AM Scheduled Provider: Location:FT.[place] Appointment Type:PT 60 (FT) Appointment Date:06/19/2023 08:45:00 AM Scheduled Provider: [place]:.[place] Appointment Type:PT 60 (FT) Appointment Date:06/24/2023 08:45:00 AM Scheduled Provider: Location:FT.[place] Appointment Type:PT Re-Eval 60 (FT) [facility]01-01-2024 Evaluation + Plan note Future Appointments Appointment Date:03/06/2023 09:00:00 AM Scheduled Provider: Location:FT.OCCUPATIONAL Appointment Type:OT 60 (FT) Appointment Date:03/06/2023 10:15:00 AM Scheduled Provider: Location:FT.[place]ICAL [place] Appointment Type:PT Lite Gait (FT) Appointment Date:03/06/2023 10:15:00 AM Scheduled Provider: Location:FT.[place]ICAL [place] Appointment Type:PT Lite Gait (FT) Appointment Date:03/08/2023 10:00:00 AM Scheduled Provider: Location:FT.OCCUPATIONAL Appointment Type:OT 60 (FT) Appointment Date:03/11/2023 01:00:00 PM Scheduled Provider: Location:FT.[place]ICAL [place] Appointment Type:PT Lite Gait (FT) Appointment Date:03/13/2023 09:15:00 AM Scheduled Provider: Location:FT.OCCUPATIONAL Appointment Type:OT 60 (FT) Appointment Date:03/13/2023 10:15:00 AM Scheduled Provider: Location:FT.[place]ICAL [place] Appointment Type:PT Lite Gait (FT) Appointment Date:03/13/2023 10:15:00 AM Scheduled Provider: Location:FT.[place]ICAL [place] Appointment Type:PT Lite Gait (FT) Appointment Date:03/14/2023 09:15:00 AM Scheduled Provider: Location:FT.OCCUPATIONAL Appointment Type:OT 60 (FT) Appointment Date:03/26/2023 11:00:00 AM Scheduled Provider: Location:[facility] Appointment Type:URO Nurse Visit [facility] 12-21-2023 Evaluation + Plan noteExtracted from:Title: Pain Management *Author:Camilo Deras DODate:02/07/23 Impression and Plan History, physical examination, and [...] consent was obtained from the patient. The areawas prepped under strict aseptic technique using alcohol [...] and treatment, all questions were answered and patientagrees to adhere to the plan above. Risk [...] (FT) Appointment Date:02/13/2023 09:00:00 AM Scheduled Provider: Location:[facility] Appointment Type:URO Nurse Visit Appointment Date:02/14/2023 08:45:00 AM Scheduled Provider: Location:.[place] Appointment Type:PT Re-Eval 60 (FT) Appointment Date:02/14/2023 10:00:00 AM Scheduled Provider: Location:.OCCUPATIONAL Appointment Type:OT Re-Eval () [facility]12-13-2023 Instructions* Patient Instructions* Caro May MD - 01/30/2023 1:08 PM EST You have received botulinum toxin injections today. The skin around the site of injections should be monitored for a couple of days. If redness or swelling occur, the skin should be examined by a health healthcare analyst to rule out infection. Please contact our office via [employer] or by phone at [phone] in 2 weeks to report on the effects of the injections, or any time with any questions or concerns. Please note that your next injections should not be scheduled less than 90 days from today. If your health insurance changes before the next injections, please contact our office at [phone] as soon as possible so we can submit a new pre- authorization if needed. Please note that we may not be able to perform the injections if your insurance changes and the treatment is not pre-authorized. Haile Barrios MD [facility] History of Present illness Narrative* Haile Barrios MD - 01/30/2023 12:57 PM EST BOTULINUM TOXIN THERAPY Ms. Gutierrez was accompanied by her daughter (stayed in [facility]) Current complaints / history since last visit: [...] stable, swallowing is unchanged (has not scheduled VP SOFTWARE SUPPORT visit) Driving issues: NA does not drive Safety concerns regarding living situations and safety at home: No At risk for falling: Yes . Actual falls since last visit: frequency/number 1 slid out of wheelchair, stressed shoulder. Examination: Strength Right Left Shoulder abduction 0 5 Elbow flexion 1 5 Elbow extension 1 5 Wrist extension 1 5 Marketing Director strength (kg) 32 Hip flexion 0 5 [...] rigid in flexion or extension 1+/5 right cooker loader strength. Spasms observed: RUE: no right upper [...] injections: Haile Barrios MD, Caro May MD Air Motor Repairer: Marilia Antony RN The patient was positioned seated in [...] MD Department of PM&R documented in this encounterF[facility]12-01-2023 Evaluation + Plan note Future Appointments Appointment Date:01/25/2023 10:00:00 AM Scheduled Provider: Location:FT.OCCUPATIONAL Appointment Type:OT 60 (FT) Appointment Date:01/28/2023 08:00:00 AM Scheduled Provider: Location:FT.[place]ICAL [place] Appointment Type:PT 60 (FT) Appointment Date:01/28/2023 [...] Date:02/07/2023 08:15:00 AM Scheduled Provider:Camilo Deras DO Location:FT.[facility] Appointment Type:Pain Management - Office Injection (FT) Appointment Date:02/13/2023 08:00:00 AM Scheduled Provider: Location:FT.[place]ICAL [place] Appointment Type:PT 60 (FT) Appointment Date:02/13/2023 09:00:00 AM Scheduled Provider: Location:FT.OCCUPATIONAL Appointment Type:OT 60 (FT) Appointment Date:02/13/2023 09:00:00 AM Scheduled Provider: Location:[facility] Appointment Type:URO Nurse Visit Appointment Date:02/14/2023 08:45:00 AM Scheduled Provider: Location:.[place] Appointment Type:PT Re-Eval 60 (FT) Appointment Date:02/14/2023 10:00:00 AM Scheduled Provider: Location:.OCCUPATIONAL Appointment Type:OT Re-Eval () [facility] 11-02-2023 Evaluation + Plan noteExtracted from:Title: Pain Management *Author:Camilo Deras DODate:12/20/22 Impression and Plan History, physical examination, and personal review of pertinent imaging results indicate a diagnosis of: -MS, right shoulder pain, right shoulder contracture, right trochanteric bursitis Plan: -Refill Lyrica 200 mg 3 times daily, update controlled substance agreement urine drug screen is appropriate -Discussed that we can perform a right shoulder intra-articular corticosteroid injection to see howthis helps with her pain, if this does [...] and treatment, all questions were answered and patientagrees to adhere to the plan above. Risk [...] (FT) Appointment Date:12/26/2022 11:00:00 AM Scheduled Provider: Location:FT.[place]YSICAL [place] Appointment Type:PT 60 (FT) Appointment Date:12/31/2022 09:00:00 AM Scheduled Provider: Location:FT.OCCUPATIONAL Appointment Type:OT 60 (FT) Appointment Date:12/31/2022 10:00:00 AM Scheduled Provider: Location:.[place] Appointment Type:PT 60 (FT) Appointment Date:01/01/2023 09:00:00 AM Scheduled Provider: Location:[facility] Appointment Type:URO Nurse Visit Appointment Date:01/02/2023 08:15:00 [...] Scheduled Provider: Location:.OCCUPATIONAL Appointment Type:OT Re-Eval (FT) [facility]10-02-2023 Evaluation + Plan note Future Appointments Appointment Date:12/12/2022 10:00:00 AM Scheduled Provider: Location:.OCCUPATIONAL Appointment Type:OT 60 (FT) Appointment Date:12/12/2022 11:00:00 AM Scheduled Provider: Location:.[place] Appointment Type:PT 60 (FT) Appointment Date:12/17/2022 08:45:00 AM Scheduled Provider: Location:.OCCUPATIONAL Appointment Type:OT 60 (FT) Appointment Date:12/17/2022 10:15:00 AM Scheduled Provider: Location:FT.[place]ICAL [place] Appointment Type:PT 45 (FT) Appointment Date:12/19/2022 08:15:00 AM Scheduled Provider: Location:.OCCUPATIONAL Appointment Type:OT 60 (FT) Appointment Date:12/19/2022 09:15:00 AM Scheduled Provider: Location:FT.[place]ICAL [place] Appointment Type:PT 45 (FT) Appointment Date:12/20/2022 09:15:00 AM Scheduled Provider: Location:FT.[place]ICAL [place] Appointment Type:PT [place] 60 (FT) Appointment Date:12/20/2022 11:00:00 AM Scheduled Provider:Camilo Deras DO Location:.[facility] Appointment Type:Pain Management - Follow Up (FT) [...] Location:FT.OCCUPATIONAL Appointment Type:OT 60 (FT) Appointment Date:12/31/2022 10:00:00 AM Scheduled Provider: Location:.[place] Appointment Type:PT 60 (FT) Appointment Date:01/01/2023 09:00:00 AM Scheduled Provider: Location:[facility] Appointment Type:URO Nurse Visit Appointment [...] Appointment Type:OT Re-Eval (FT) [facility] 08-01-2023 Hospital Discharge instructions Patient Education 09/18/2022 10:39:40 [...] your health care provider. General instructions Take ogjc-gmh-becqwfu and prescription medicines only as told by [...] provider. Document Revised: 10/20/2020 Document Reviewed: 10/20/2020 [employer] Patient Education 2022 [employer]. Follow Up Care 07/31/2022 14:37:44 With:CHERELLE ROSS, Yaakov Caicedo, URL Address: [address] [id number]- When: Unknown [facility] [id number] Instructions* Patient Instructions* Haile Barrios MD - 08/03/2022 11:32 AM EDT You have received botulinum toxin injections today. The skin around the site of injections should be monitored for a couple of days. If redness or swelling occur, the skin should be examined by a health healthcare analyst to rule out infection. Please contact our office via [employer] or by phone at [phone] in 2 weeks to report on the effects of the injections, or any time with any questions or concerns. Please note that your next injections should not be scheduled less than 90 days from today. If your health insurance changes before the next injections, please contact our office at [phone] as soon as possible so we can submit a new pre- authorization if needed. Please note that we may not be able to perform the injections if your insurance changes and the treatment is not pre-authorized. Haile Barrios MD [facility]06-16-[facility] History of Present illness Narrative* Haile [...] pain occur?) occurs constantly Patient Entered Data SPOIS No flowsheet data found. Spasticity NRS 12/06/2021 [...] rigid in flexion or extension 1+/5 right cooker loader strength. Spasms observed: RUE: no right upper [...] Clinician(s) performing the injections: Haile Barrios MD Air Motor Repairer: Tiffany Thomas LPN The patient was positioned [...] mn. Haile Barrios MD documented in this encounterF[facility]06-01-2023 Evaluation + Plan note Future Appointments [...] Date:08/28/2022 09:30:00 AM Scheduled Provider:Yaakov GREENWOOD MD [facility] Appointment Type:URO Office Visit [facility] [id number] Hospital Discharge instructions Follow Up Care 07/03/2022 14:17:56 With:Yaakov GREENWOOD MD, URL Address: [address] [place] [id number]- When: Unknown [facility] [id number] Hospital Discharge instructions Patient Education 07/03/2022 13:59:39 [...] and water are not available, use hand senior php software developer. 3.Draw up sterile water into a syringe [...] and water are not available, use hand senior php software developer. 2.Disconnect the bag from the catheter and [...] of the following methods: According to the fuller brush man's instructions. As told by your health care provider. 7.Let the bag dry completely. Put it in a clean plastic bag before storing it. General tips Always wash your hands before and after caring for your catheter and collection bag. Use a mild, fragrance-free soap. If soap and water are not available, use hand senior php software developer. Clean the outside of the catheter with [...] provider. Document Revised: 04/14/2020 Document Reviewed: 03/11/2019 [employer] Patient Education 2022 [employer] Follow Up Care 07/03/2022 11:58:09 With:CHERELLE ROSS, Yaakov Caicedo, URL Address: [address] [place] [id number]- When: Unknown [facility] [id number] Evaluation + Plan note Future Appointments Appointment Date:07/05/2022 12:15:00 PM Scheduled Provider: Location:FT.OCCUPATIONAL Appointment Type:OT 60 (FT) Appointment Date:07/05/2022 01:30:00 PM Scheduled Provider: Location:.[place]ICAL [place] Appointment Type:PT 60 (FT) Appointment Date:07/11/2022 [...] 60 (FT) [facility] 2023 Evaluation + Plan note Future [...] Date:07/31/2022 01:45:00 PM Scheduled Provider:Yaakov GREENWOOD MD Location:[facility] Appointment Type:URO Office Visit Appointment Date:08/01/2022 01:15:00 PM Scheduled Provider: Location:FT.OCCUPATIONAL [...] Type:PT Re-Eval 60 (FT) [facility] 04-24-2023 Hospital Discharge instructions Patient Education 06/11/2022 [...] your health care provider. General instructions Take alux-xro-fxoirfe and prescription medicines only as told by [...] provider. Document Revised: 10/20/2020 Document Reviewed: 10/20/2020 [employer] Patient Education 2022 [employer]. Follow Up Care 04/18/2022 14:11:28 With:CHERELLE ROSS, Yaakov Caicedo, URL Address: [address] [place], [place] [id number]- When: Unknown [facility] 04-12-2023 Evaluation + Plan noteExtracted from:Title: Clinical DocumentAuthor:Leon ROSS, [facility] hospitalDate:05/30/22 Chief complaint: Multifocal pain History of present illness: This is a 47-year-old female here for a chief complaint of multifocal pain. The patient rates the pain as a a 5 out of 10. She reports since her last visit her pain issuesare more or less stable. She still has a lot of spasticity in the right shoulder. She is getting Botox injections with neurology in [place]. They also put her on methocarbamol. She is using Lyrica,baclofen 10 mg twice a day, and tramadol sporadically for months. She is using the tramadol about once a week. She states is helpful. She does not want to go on anything stronger. She has been able to gain a little bit of strength in her right hand. She can now pinch with the thumb and index fingerand can move the other fingers a little [...] The strength in her index finger and thumbon the right side though is now up [...] Appointments Appointment Date:05/31/2022 09:00:00 AM Scheduled Provider: [facility] Appointment Type:URO Nurse Visit Appointment Date:05/31/2022 10:15:00 AM Scheduled Provider: Location:.[place]ICAL [place] Appointment Type:PT 60 (FT) Appointment Date:06/04/2022 10:00:00 AM Scheduled Provider: Location:.OCCUPATIONAL Appointment Type:OT 60 (FT) Appointment Date:06/06/2022 08:45:00 AM Scheduled Provider: Location:.[place]ICAL [place] Appointment Type:PT 60 (FT) Appointment Date:06/06/2022 10:00:00 AM Scheduled Provider: Location:.OCCUPATIONAL Appointment Type:OT 60 (FT) Appointment Date:06/11/2022 09:15:00 AM Scheduled Provider:Yaakov GREENWOOD MD Location[facility] Appointment Type:URO Office Visit Appointment Date:06/11/2022 10:00:00 AM Scheduled Provider: Location:.OCCUPATIONAL Appointment Type:OT 60 (FT) Appointment Date:06/11/2022 11:30:00 AM Scheduled Provider: Location:.[place]ICAL [place] Appointment Type:PT 60 (FT) Appointment Date:06/13/2022 08:45:00 AM Scheduled Provider: Location:.[place] Appointment Type:PT 60 (FT) Appointment Date:06/13/2022 10:00:00 AM Scheduled Provider: Location:.OCCUPATIONAL Appointment Type:OT Re-Eval (FT) Appointment Date:06/18/2022 02:00:00 PM Scheduled Provider: Location:.[place]ICAL [place] Appointment Type:PT 60 (FT) Appointment Date:06/21/2022 09:00:00 AM Scheduled Provider: Location:.[place] Appointment Type:PT Re-Eval 60 (FT) [facility]03-01-2023 Evaluation + Plan note Future Appointments Appointment Date:05/02/2022 10:15:00 AM Scheduled Provider: Location:FT.OCCUPATIONAL Appointment Type:OT 60 (FT) Appointment Date:05/02/2022 11:15:00 AM Scheduled Provider: Location:.PH[place]ICAL [place] Appointment Type:PT 60 (FT) Appointment Date:05/14/2022 09:30:00 AM Scheduled Provider: Location:.OCCUPATIONAL Appointment Type:OT 60 (FT) Appointment Date:05/14/2022 10:30:00 AM Scheduled Provider: Location:.[place]ICAL [place] Appointment Type:PT Re-Eval 60 (FT) Appointment Date:05/16/2022 10:00:00 AM Scheduled Provider: Location:FT.OCCUPATIONAL Appointment Type:OT Re-Eval (FT) Appointment Date:05/23/2022 10:00:00 AM Scheduled Provider: Location:.OCCUPATIONAL Appointment Type:OT 60 (FT) Appointment Date:05/28/2022 10:00:00 AM Scheduled Provider: Location:.OCCUPATIONAL Appointment Type:OT 60 (FT) Appointment Date:05/29/2022 09:00:00 AM Scheduled Provider: Location:[facility] Appointment Type:URO Nurse Visit Appointment Date:05/30/2022 10:00:00 AM Scheduled Provider: Location:FT.OCCUPATIONAL Appointment Type:OT 60 (FT) Appointment Date:05/30/2022 02:15:00 PM Scheduled Provider:Remi Quintero MD Location[facility] Appointment Type:Pain Management - Follow Up (FT) Appointment Date:06/04/2022 10:00:00 AM Scheduled Provider: Location:FT.OCCUPATIONAL Appointment Type:OT 60 (FT) Appointment Date:06/06/2022 10:00:00 AM Scheduled Provider: Location:.OCCUPATIONAL Appointment Type:OT 60 (FT) Appointment Date:06/11/2022 09:15:00 AM Scheduled Provider:Yaakov GREENWOOD MD Location[facility] Appointment Type:URO Office Visit Appointment Date:06/11/2022 10:00:00 AM Scheduled Provider: Location:.OCCUPATIONAL Appointment Type:OT 60 () Appointment Date:06/13/2022 10:00:00 AM Scheduled Provider: Location:.OCCUPATIONAL Appointment Type:OT Fauzia-Santhosh () [facility] 02-08-2023 History of Present illness Narrative* Marilia Siu [...] 0 5 Dorsiflexion 0 5 Strength: decreased cooker loader strength in RUE, slight voluntary movement of [...] Clinician(s) performing the injections: Marilia Siu PA-C Air Motor Repairer: Chelsey Hoang LPN The patient was positioned [...] 100 units / 1 ml LOT #: [id number] Expiration Date: Month: 5 Year: 25 The [...] mn. Marilia Siu PA-C documented in this encounterF[facility]02-02-2023 Evaluation + Plan note Future Appointments Appointment Date:04/09/2022 09:15:00 AM Scheduled Provider: Location:FT.OCCUPATIONAL Appointment Type:OT 60 (FT) Appointment Date:04/11/2022 09:45:00 AM Scheduled Provider: Location:FT.OCCUPATIONAL Appointment Type:OT 60 (FT) Appointment Date:04/11/2022 10:45:00 AM Scheduled Provider: Location:FT.[place]ICAL [place] Appointment Type:PT 60 (FT) Appointment Date:04/16/2022 01:00:00 PM Scheduled Provider: Location:FT.OCCUPATIONAL Appointment Type:OT 60 (FT) Appointment Date:04/17/2022 01:00:00 PM Scheduled Provider: Location:FT.[place]ICAL [place] Appointment Type:PT 60 (FT) Appointment Date:04/19/2022 09:00:00 AM Scheduled Provider: Location:FT.OCCUPATIONAL Appointment Type:OT Re-Eval (FT) Appointment Date:04/19/2022 10:00:00 AM Scheduled Provider: Location:FT.PH[place]ICAL [place] Appointment Type:PT 60 (FT) Appointment Date:04/23/2022 09:00:00 AM Scheduled Provider: Location:FT.OCCUPATIONAL Appointment Type:OT 60 (FT) Appointment Date:04/23/2022 10:00:00 AM Scheduled Provider: Location:FT.[place]ICAL [place] Appointment Type:PT Re-Eval 60 (FT) Appointment Date:04/25/2022 09:30:00 AM Scheduled Provider: Location:FT.OCCUPATIONAL Appointment Type:OT 60 (FT) Appointment Date:04/25/2022 10:30:00 AM Scheduled Provider: Location:FT.[place]ICAL [place] Appointment Type:PT 60 (FT) Appointment Date:04/26/2022 12:45:00 PM Scheduled Provider:Remi Quintero MD Location:FT.[facility] Appointment Type:Pain Management - Follow Up (FT) Appointment Date:04/30/2022 08:30:00 AM Scheduled Provider: Location:[facility] Appointment Type:URO Nurse Visit Appointment Date:04/30/2022 09:30:00 AM Scheduled Provider: Location:FT.OCCUPATIONAL Appointment Type:OT 60 (FT) Appointment Date:04/30/2022 10:30:00 AM Scheduled Provider: Location:FT.[place]ICAL [place] Appointment Type:PT 60 (FT) Appointment Date:05/02/2022 10:15:00 AM Scheduled Provider: Location:FT.OCCUPATIONAL Appointment Type:OT 60 (FT) Appointment Date:05/02/2022 11:15:00 AM Scheduled Provider: Location:FT.[place]ICAL [place] Appointment Type:PT 60 (FT) Appointment Date:05/07/2022 10:00:00 AM Scheduled Provider: Location:FT.OCCUPATIONAL Appointment Type:OT 60 (FT) Appointment Date:05/09/2022 10:00:00 AM Scheduled Provider: Location:FT.OCCUPATIONAL Appointment Type:OT 60 (FT) Appointment Date:05/09/2022 11:15:00 AM Scheduled Provider: Location:FT.[place]ICAL [place] Appointment Type:PT 60 (FT) Appointment Date:05/14/2022 09:30:00 AM Scheduled Provider: Location:FT.OCCUPATIONAL Appointment Type:OT 60 (FT) Appointment Date:05/14/2022 10:30:00 AM Scheduled Provider: Location:FT.PH[place]ICAL [place] Appointment [...] Appointment Type:OT Re-Eval (FT) [facility] 01-02-2023 Evaluation + Plan note Future Appointments Appointment Date:03/07/2022 10:30:00 AM Scheduled Provider: Location:FT.OCCUPATIONAL Appointment Type:OT 60 (FT) Appointment Date:03/14/2022 10:00:00 AM Scheduled Provider: Location:FT.OCCUPATIONAL Appointment Type:OT Re-Eval (FT) Appointment Date:03/29/2022 09:45:00 AM Scheduled Provider:MARILIA CR PA-C Location[facility] Appointment Type:URO Office Visit Appointment Date:04/26/2022 12:45:00 PM Scheduled Provider:Remi Quintero MD Location:.Pain Mgmt [place] Appointment Type:Pain Management - Follow Up (FT) [facility] 12-21-2022 History of Present illness Narrative* Jose Hassan MD - 02/07/2022 1:25 PM ESTFormatting of this note is different from the [facility]. [facility] FOLLOWUP/ESTABLISHED PATIENT VISIT PRINCIPAL NEUROLOGIC DIAGNOSIS: suspected [...] quetiapine, losartan, sumatriptan, hyoscyamine sublingual, and pantoprazole drMonique EXAM: BP 126/85 Pulse 85 Ht 165.1 [...] Abs Lymph 1.00 - 4.00 k/uL 1.66 Labette% % 5.2 Abs Labette <0.87 k/uL 0.34 Eosin% % 0.5 Abs [...] immunofluorescence. Staff Review (ANCA) No review performed. CROTCH PIECE BASTER Demyelinating Disease Interp, S NMO/AQPF FACS, S Negative MOG-IgG1 FACS Negative Syphilis Screen Result Nonreactive Syphilis Interpretation Sm Antibody Negative Negative Anti-Sm <1.0 AI <0.2 INSURANCE AGENT Antibody QUAL Negative Negative Anti-INSURANCE AGENT <1.0 AI <0.2 SSA Antibody Qual Negative Negative Anti-SSA <1.0 AI <0.2 Anti-SSB <1.0 AI <0.2 SSB Antibody Qual Negative Negative CENTROMERE AB QUAL Negative Negative Centromere Ab <1.0 AI <0.2 Scleroderma Ab Qual Negative Negative Scl-70 Abs, EIA <1.0 AI <0.2 CHE 1 ANTIBODY QUAL Negative Negative Che 1 Antibody <1.0 AI <0.2 Ribosomal INSURANCE AGENT Qualitative Negative Negative Ribosomal INSURANCE AGENT Ab <1.0 AI <0.2 Chromatin Ab Qual [...] clear evidence of inflammation currently in the CROTCH PIECE BASTER. Given uveitis, I would be willing to [...] following studies:None Follow-up: In 3 months at [place] with [facility] I spent a total of 40 minutes on the date of the service which included preparing to see the patient, tkgu-nm-[id number] patient care, completing clinical documentation, obtaining and/or reviewing separately obtained history, performing a medically appropriate examination, counseling and educating the pat ient/family/caregiver, communicating with other HCPs (not separately reported), independently interpreting results (not separately reported), communicating results to the patient/family/caregiver, and care coordination (not separately reported). Jose Hassan MD PhD [facility] documented in this encounterFlower Hospital12-02-2022 Evaluation + Plan note Future Appointments Appointment Date:02/08/2022 01:00:00 PM Scheduled Provider: Location:FT.OCCUPATIONAL Appointment Type:OT 60 (FT) Appointment Date:02/14/2022 10:45:00 AM Scheduled Provider: Location:.OCCUPATIONAL Appointment Type:OT Re-Eval (FT) Appointment Date:02/28/2022 09:30:00 AM Scheduled Provider:Axel Garcia Location:[facility] Appointment Type:URO Office Visit Appointment Date:04/26/2022 12:45:00 PM Scheduled Provider:Remi Quintero MD Location:FT.[facility] [place] Appointment Type:Pain Management - Follow Up (FT) [facility] 11-09-2022 Miscellaneous Notes* Telephone Encounter - Ana Ryan PT DPT - 12/27/2021 8:16 AM EST Called and spoke with pt sister Nathaly. Noting that there is potential for hernia surgery in the upcoming weeks based on imaging. Noting that pt will be doing therapy closer to home also, so cancelled upcoming appointments. Will be getting new AFO and hand brace from [facility] in [place]. Pt also planning to get wheelchair. Will update therapist when more information arises. Ana Ryan PT DPT Clinical Application Architect- [place] Board Certified Clinical Specialist in Neurologic Physical Therapy documented in this encounterFlower Hospital11-07-2022 History of Present illness Narrative* DES Warner - 12/25/2021 8:36 AM EST Faxed orders for PT and OT to [phone] Attn: Freya Sargent documented in this encounterFlower Hospital11-02-2022 Evaluation + Plan note Future Appointments Appointment Date:01/09/2022 10:00:00 AM Scheduled Provider: Location:.OCCUPATIONAL Appointment Type:OT 60 (FT) Appointment Date:01/09/2022 02:45:00 PM Scheduled Provider:MARILIA CR PA-C Location:[facility] Appointment Type:URO Office Visit Appointment Date:01/17/2022 10:45:00 AM Scheduled Provider: Location:FT.OCCUPATIONAL Appointment Type:OT 60 (FT) Appointment Date:01/24/2022 12:30:00 PM Scheduled Provider:Remi Quintero MD Location:.Pain [facility]mt [place] Appointment Type:Pain Management - Follow Up (FT) Appointment Date:01/24/2022 01:15:00 PM Scheduled Provider: Location:FT.OCCUPATIONAL Appointment Type:OT 60 (FT) Appointment Date:01/31/2022 08:30:00 AM Scheduled Provider:Axel Garcia Location:[facility] Appointment Type:URO Office Visit Appointment Date:01/31/2022 02:00:00 PM Scheduled Provider: Location:FT.OCCUPATIONAL Appointment Type:OT Re-Eval (FT) Appointment Date:02/08/2022 01:00:00 PM Scheduled Provider: Location:FT.OCCUPATIONAL Appointment Type:OT 60 (FT) Appointment Date:02/14/2022 10:45:00 AM Scheduled Provider: Location:FT.OCCUPATIONAL Appointment Type:OT Re-Eval (FT) Future Scheduled Tests Laboratory* Electrolyte Panel 01/10/21 [facility] 11-01-2022 History of Present illness Narrative* [...] limitations existing with remaining visits allowed before endof year and combined nature of visits towards [...] use of gait belt Education as noted Self-Retirement Management: 1: reviewed recommendations to set up follow up appts to follow up about abdominal hernia 2: reviewed potential options for additional assistance at home- recommended reaching out to 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 Asked pt to call back with times available to discuss. [phone]. Ana Ryan PT DPJoe Clinical Application Architect- Magalie Board Certified Clinical Specialist in Neurologic Physical Therapy documented in this encounterFlower Hospital10-21-2022 Miscellaneous Notes* Telephone Encounter - Ana Ryan PT DPT - 12/08/2021 10:50 AM EDT Left VM for patient per our discussion at [facility] on Wednesday 12/06. Reviewed conversation about therapy at [facility]. Asked pt to call therapist back when message is received to discuss her decision about where she would like to continue with outpatient therapy for the remaining visits for the year. [phone] Ana Ryan PT DPT Clinical Application Architect- [place] Board Certified Clinical Specialist in Neurologic Physical Therapy documented in this [facility]10-19-2022 History of Present illness Narrative* Ana Ryan PT DPT - 12/06/2021 1:43 PM EDT Episode Visit Count: 1 Therapist That Will Accept/Oversee The Plan Of Care: Ana Ryan, PT, DPT, NCS Start of Care Date: [...] to travel distance from pt home to [place]. Discussed potential for additional neuro based therapy options closer to home, including [facility] location. Additionally noted [facility] neuro based therapy, however pt living equidistant between [place] and [place]. Pt also has limitation on remaining therapy visits for the year (9 remain after today) due to outpatient therapy already completed this year. Therapist to call pt on Saturday after she has a chance to discuss with her as to plan for follow up visits at [place] vs [place]. Goals for Episode of Care: created on [...] Planned: 4 Planned Treatment Interventions: Therapeutic exercise (06159);Neuromuscular re- education (39461);Manual therapy (92084);Therapeutic activities (02679);Self- fpc management (02471);Gait Training (29870);Aquatic PT (72124);Patient/Family/Caregiver Education;Body Mechanics Training;Functional training;General Conditioning;Orthosis / DME PLAN FOR NEXT VISIT: FIST. continue care at [facility] Patient demonstrates good understanding of plan of [...] 6: discussed resources for neuro based PT- [facility] [place] vs [place]. 7: education regarding frequency of [...] Treatment Time Minutes (timed/untimed): 70 Ana Ryan PT, DPT documented in this encounterFlower Hospital10-19-2022 Miscellaneous Notes* Telephone Encounter - Ana Ryan PT DPT - 12/06/2021 12:58 PM EDT Called and [...] virtual vs in person appt with Willow Phillips. Asked pt to call therapist back [phone]. Will send [employer] message also. Ana Ryan PT DPT Clinical Application Architect- [place]alie Board Certified Clinical Specialist in Neurologic Physical Therapy documented in this encounterFlower Hospital10-19-2022 History of Present illness Narrative* Prieto [...] steroids with resultant glaucoma per patient for whichkusum underwent s/p surgical intervention Mar 2017. She did see Dr. Zhao back in 2016 as well and had been followed by Dr. Chen thereafter, without follow up at [employer] since 2018. Her vision in the left eye declined [...] patient apparently had a visit at the [facility] that we were unfortunately not made aware of until she was already late. While I was unable to get a view of the right nerve in the setting of the aforementioned prieto to get to [place], the left optic nerve and posterior pole [...] the day of service that includes both klcg-fi-covc and zep-sosv-xe-face time. This time was separate from any of my time spent completing and interpreting the ancillary testing (such as OCT, fundus photos, visual barone) and sensorimotor exam, if applicable. I communicated with Dr. Phillips and Dr. Quinteros regarding the management of this patient. The assessment and plan were discussed extensively with the patient who was amenable and voiced understanding. documented in this encounterFlower Hospital10-11-2022 History of Present illness Narrative* Estefania Alatorre RRT - 11/28/2021 1:58 PM EDT PULM FUNCTION SMARTBLOCK: Provider: Odilia Corrigan MD Spirometry: 1 DLCO: 1 documented in this encounterFlower Hospital09-27-2022 Instructions* Patient Instructions* Desiree Phillips APRN.BOZENA - 11/14/2021 2:20 PM EDT You have received botulinum toxin injections today. The skin around the site of injections should be monitored for a couple of days. If redness or swelling occur, the skin should be examined by a health healthcare analyst to rule out infection. Please contact our office via [employer] or by phone at [phone] in 2 weeks to report on the effects of the injections, or any time with any questions or concerns. Please note that your next injections should not be scheduled less than 90 days from today. If your health insurance changes before the next injections, please contact our office at [phone] as soon as possible so we can submit a new pre- authorization if needed. Please note that we may not be able to perform the injections if your insurance changes and the treatment is not pre-authorized. documented in this encounterFlower Hospital09-27-2022 History of Present illness Narrative* Desiree Phillips APRN.CNP - 11/14/2021 1:45 PM EDT BOTULINUM TOXIN [...] home: lives in a multilevel home with herhusband, Jerome, who works third shift. They have three children, 2 daughters and a son- oldest daughter and youngest daughter live with them (ages 24 and 15), son, Gabriele, is the middle child and in the in [employer], but is currently home on leave for [...] 0 5 Dorsiflexion 0 5 Strength: decreased cooker loader strength in RUE, slight voluntary movement of [...] of Care Visit completed when applicable. Desiree Phillips APRN.BOZENA UNIVERSAL PROTOCOL / SAFETY CHECKLIST The risks, benefits and alternatives of the procedure were explained. Written Consent Obtained: yes Clinician(s) performing the injections: Desiree Phillips APRN-FIELD INTERVIEWER Air Motor Repairer: Chelsey Hoang LPN The patient was positioned [...] the utiliyt of a PT/OT evaluation at [place],which could be scheduled the same day as her next botox appointment. Also suggested an VP SOFTWARE SUPPORT evaluation in light of her ongoing dysphagia. She is agreeable to this, so orders placed today and will ask scheduling to assist with arranging OVs. Plan: 1. Repeat botox injections in 3 months, same distribution, total dose of 300-350 units. Injections performed in wheelchair. 2. Regular stretching and exercise encouraged. PT/OT/VP SOFTWARE SUPPORT orders placed and evals to be scheduled for same day as next botox injections. 3. Continue baclofen 20 mg BID. Pt. will try robaxin at 500 mg TID dosing. 4. Follow-up: repeat botox in 3 months as above. F/u VV to assess outcome of injections on 12/08/21at 230 pm- Aaln. Pt. and her family are aware to contact the office in the meantime with any questions or concerns. Time spent with patient: 50 min. Desiree Phillips APRN.BOZENA November 14, 2021 1:44 PM documented in this encounterFlower Hospital09-09-2022 History of Present illness Narrative* RT Puja(R) - 10/27/2021 9:00 AM EDT Radiology Service [...] IV DATA: Not applicable SIGNED BY: RT Puja(Belkis) October 27, 2021 10:47 AM documented in this encounterFlower Hospital09-02-2022 History of Present illness Narrative* Frank Dillon MD - 10/20/2021 12:38 PM EDT Pt left without being seen. documented in this encounterFlower Hospital09-02-2022 History of Present illness Narrative* Urszula Sood MD - 10/20/2021 9:07 AM EDT Consultation requested by Dr. Hassan for an opinion regarding autoimmune disease . 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 She was diagnosed with R eye uveitis. She saw Dr. Nieto in [place]. Two week after, she came to [facility] to see Dr. Mitchell, who confirmed diagnosis. [...] in R eye. She has seen a boiler control technician starting 3 yearsprior for work-up, which was all negative. No medications were started. About one year prior, patient was making breakfast and started having vertigo with inability to sit upright. She continued to have nausea and emesis. At this point, her R arm had numbness. She went to the ER in [place], where was admitted for 2 days for [...] due to contrast allergy. April 2021 in [facility], she received a spinal tap, which was wnl. She follows with rn recovery, last visit 1 year prior. She has [...] stimulator was interrogated and wnl. She used [employer] cath herself prior to catheter insertion. Patient has gastroparesis diagnosed by [facility] Dr. Monty Amador. She has tried Lynzest, [...] right dominant side due to noncerebrovascular etiology ([facility]) (primary encounter diagnosis) (J84.9) ILD (interstitial lung disease) ([facility]) (H20.9) Uveitis (K13.79) Recurrent mouth ulceration Ms. [...] I reviewed the extensive outside records on [facility], records for current [facility] stay, multiple MRI scans, CT scans, PET scans, discussion with otherproviders, and abstracted the information into the electronic medical record. 130 minutes. This service is separate and distinguished from the related E/M service noted above Primary Code: 02173 = 30-60 minutes, Add on Code: 39493 = additional 15-30 minutes Urszula Lilly MD documented in this encounterFlower Hospital09-01-2022 Miscellaneous Notes* Telephone Encounter - Justina Fuentes MD - 10/19/2021 11:10 AM EDT Luis M KelloggJessica, The foot brace is called an ankle-foot orthosis . We have not had good luck with getting insuranceto cover it, but it can be purchased at any medical equipment store, some pharmacies, and [employer]. Dr. Sameer Aguilera documented in this encounterFlower Hospital08-26-2022 Miscellaneous Notes* Addendum Note - Justina [...] RN, BSN * Telephone Encounter - Alba Jay - 10/12/2021 2:01 PM EDT (home) Order being requested: Patient called requesting Dr. Fuentes take over her Nurtec. If agreed upon, please send to E- [id number] - [place] [address] - [address] [phone] [place] [address] Fuentes documented in this encounterFlower Hospital08-25-2022 Miscellaneous Notes* Telephone Encounter - Trupti Montenegro - 10/12/2021 9:25 AM EDT Received outside medical records from [facility] that have been scanned in to patients chart. documented in this encounterFlower Hospital08-19-2022 History of Present illness Narrative* RT [...] IV DATA: Not applicable SIGNED BY: RT Zulema(R) October 06, 2021 1:20 PM documented in this encounterFlower Hospital08-05-2022 Instructions* Patient Instructions* Agustina De Jesus MD - 09/22/2021 8:32 AM EDT Plan: - Please have additional labs completed today - repeat MRI of brain, cervical spine, thoracic spine - CT scan of chest - OCT eye scan - Referral to Rheumatology - Referral to Neuro-Ophthalmology - Return visit in 1 month following completion of work-up documented in this encounterFlower Hospital08-05-2022 History of Present illness Narrative* Jose Hassan MD - 09/22/2021 7:00 AM EDT Images from the original note were not included. [facility] NEW PATIENT EVALUATION/CONSULTATION Referral source: Justina Fuentes [address] [facility] [address] Also followed by: Patient Care Team: Hunter Quinteros MD as PCP - General (Family Practice) Yimi Nina as Referring (Ophthalmology) Bella Fraser PA-C as NI Referring Team Justina Fuentes MD ([facility] Neurology) Dr. Dinorah Vazquez (local Neurologist- [facility] [place], [place]) PRINCIPAL NEUROLOGIC DIAGNOSIS: suspected myelitis DISEASE [...] be communicated back to the patient's physician(s) viaelectronic medical record. Follow-up is expected to be with me at the [facility]. Ms. 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 CT chest to rule out sarcoid. Continue with PT/OT and PMR evaluations. F/U visit in 2-3 weeks. All questions answered. SIGNATURE: Jose Hassan MD PhD DATE of SERVICE: September 22, 2021 documented in this encounterFlower Hospital08-04-2022 Instructions* Patient Instructions* Justina Fuentes MD - 09/21/2021 12:28 PM EDT Ankle-foot orthosis documented in this encounterFlower Hospital08-04-2022 History of Present illness Narrative* Justina Fuentes MD - 09/21/2021 11:30 AM EDT Name: Jessica Gutierrez Age: [age] year old Gender: female Primary Care Provider: Hunter Quinteros MD, MD Chief Complaint:New Patient HPI: [...] I referred her to spasticity at the [facility] [physiatry] as well as neurology at the [facility] to see if there is a role [...] of Occurrences: 1 Standing Expiration Date: 11/21/2021 CROTCH PIECE BASTER DEMYELINATING DISEASE EVALUATION, SERUM Standing Status: Future [...] [facility] Epic access? Answer: Yes CONSULT TO [facility] Standing Status: Future Standing Expiration Date: 09/21/2022 Order Specific Question: Does consulting provider have [facility] Epic access? Answer: Yes No follow-ups on file. This note was dictated using [employer] speech recognition software and may contain some [...] PHQ-9 12/20/2015 Score 14 documented in this encounterFlower Hospital07-13-2022 History of Present illness Narrative* Kentrell Guardado PA-C - 08/30/2021 12:32 PM EDT SPINE SURGERY OUTPATIENT CONSULT SERVICE DATE: 08/30/2021 PCP: Hunter Quinteros MD, MD REFERRING PROVIDER: Bella Fraser PA-C Consult requested for an opinion regarding the evaluation and treatment of spine. My final impression and recommendations will be communicated back to the requesting physician by way of the shared medical record or letter via US mail. SUBJECTIVE Jessica Gutiererz is a 46 year old female presenting [...] PT OT PREVIOUS SPINAL SURGERY: SCS placement (2018) ACTIVE PROBLEM LIST Hypoglycemic Reaction Pain of [...] TIME: 3:33 PM PAGER: documented in this encounterFlower Hospital05-20-2022 History of Present illness Narrative* Rayna [...] Gutierrez Are you being referred by a [place] for Spine Health Provider or Pain Management Provider at [facility]? No If answer is YES please schedule [...] facility where the MRI/CT/myelogram was completed: [facility] [address] [place] [address] [facility] [address] [place] [address] MRI/CT/myelogram viewable in Epic: No If not, please provide [phone] to fax in imaging reports for review. [...] surgery was completed: N/A Additional Comments : [phone] documented in this encounterFlower Hospital03-29-2022 Miscellaneous Notes* Telephone Encounter - Lin Cronin - 05/16/2021 8:37 AM EDT [facility] referral from Dr. Dinorah Vazquez, [facility], [place], [place] DX: migraines & generalized weakness RFV: 2nd opinion Called pt and left VMM for her to call appt center to schedule with first available provider. Was hoping to reach pt to see if she wanted consults with Gen Neuro and Headache or just Gen Neuro. documented in this encounterFlower Hospital11-23-2021 Evaluation + Plan note Future Scheduled Tests Laboratory* Electrolyte Panel 01/10/21 [facility]11-23-2021 Evaluation + Plan note Future Scheduled Tests Laboratory* Electrolyte Panel 01/10/21 [facility] Evaluation + Plan note Future Appointments Appointment Date:08/01/2021 09:30:00 AM Scheduled Provider: Location:[facility] Appointment Type:URO Nurse Visit Future Scheduled Tests Laboratory* Electrolyte Panel 01/10/21 [facility] Evaluation + Plan note Future Appointments Appointment Date:09/04/2021 10:00:00 AM Scheduled Provider: Location:[facility] Appointment Type:URO Nurse Visit Future Scheduled Tests Laboratory* Electrolyte Panel 01/10/21 [facility] evaluation + Plan note Future Appointments Appointment Date:10/03/2021 10:00:00 AM Scheduled Provider: [facility] Appointment Type:URO Nurse Visit Future Scheduled Tests Laboratory* Electrolyte Panel 01/10/21 [facility] evaluation + Plan note Future Appointments Appointment Date:11/30/2021 01:00:00 PM Scheduled Provider:MARILIA CR PA-C Location[facility] Appointment Type:URO Office Visit Future Scheduled Tests Laboratory* Electrolyte Panel 01/10/21 [facility] evaluation + Plan note Future Appointments Appointment Date:01/09/2022 02:45:00 PM Scheduled Provider:MARILIA CR PA-C [facility] Appointment Type:URO Office Visit Appointment Date:01/24/2022 12:30:00 PM Scheduled Provider:Remi Quintero MD Location:[facility] Appointment Type:Pain Management - Follow Up (FT) Future Scheduled Tests Laboratory* Electrolyte Panel 01/10/21 [facility] evaluation + Plan note Future Appointments Appointment Date:01/24/2022 12:30:00 PM Scheduled Provider:Remi Quintero MD Location:[facility] Appointment Type:Pain Management - Follow Up (FT) Appointment Date:01/24/2022 01:15:00 PM Scheduled [facility] Type:OT 60 (FT) Appointment Date:01/31/2022 08:30:00 AM Scheduled Provider:Axel Garcia [facility] Appointment Type:URO Office Visit Appointment Date:01/31/2022 02:00:00 PM Scheduled Provider: Location:[facility] Appointment Type:OT Re-Eval (FT) Appointment Date:02/08/2022 01:00:00 PM Scheduled Provider: Location:[facility] Appointment Type:OT 60 (FT) Appointment Date:02/14/2022 10:45:00 AM Scheduled Provider: Location:[facility] Appointment Type:OT Re-Eval (FT) [facility] [place] Evaluation + Plan note Future Appointments Appointment Date:01/31/2022 08:30:00 AM Scheduled Provider:Axel Garcia [facility] Appointment Type:URO Office Visit Appointment Date:01/31/2022 02:00:00 PM Scheduled Provider: Location:[facility] Appointment Type:OT Re-Eval (FT) Appointment Date:02/08/2022 01:00:00 PM Scheduled Provider: Location:[facility] Appointment Type:OT 60 (FT) Appointment Date:02/14/2022 10:45:00 AM Scheduled Provider: Location:[facility] Appointment Type:OT Re-Eval (FT) Appointment Date:04/26/2022 12:45:00 PM Scheduled Provider:Remi Quintero MD Location[facility] [place] [facility] Appointment Date:06/13/2022 08:45:00 AM Scheduled Provider: [place] [place] Appointment Type:PT 60 (FT) Appointment Date:06/13/2022 10:00:00 AM Scheduled Provider: Location:[facility] Appointment Type:OT Re-Eval (FT) Appointment Date:06/18/2022 02:00:00 PM Scheduled Provider: [place] [place] Appointment Type:PT 60 (FT) Appointment Date:06/21/2022 09:00:00 AM Scheduled Provider: [place] [place] Appointment Type:PT Re-Eval 60 (FT) Appointment Date:06/25/2022 09:45:00 AM Scheduled Provider: Location:[facility] Appointment Type:OT 60 (FT) Appointment Date:06/25/2022 11:15:00 AM Scheduled Provider: [place] [place] Appointment Type:PT 60 (FT) Appointment Date:06/27/2022 09:30:00 AM Scheduled Provider: Location:[facility] Appointment Type:OT 60 (FT) Appointment Date:06/27/2022 10:30:00 AM Scheduled Provider: [place] [place] Appointment Type:PT 60 (FT) Appointment Date:07/02/2022 08:45:00 AM Scheduled Provider: Location:[facility] Appointment Type:OT 60 (FT) Appointment Date:07/02/2022 09:45:00 AM Scheduled Provider: [place] [place] Appointment Type:PT 60 (FT) Appointment Date:07/05/2022 12:15:00 PM Scheduled Provider: Location:[facility] Appointment Type:OT 60 (FT) Appointment Date:07/05/2022 01:30:00 PM Scheduled Provider: [place] [place] Appointment Type:PT 60 (FT) Appointment Date:07/11/2022 08:30:00 AM Scheduled Provider: Location:.OCCUPATIONAL Appointment Type:OT Re-Eval (FT) Appointment Date:07/11/2022 09:30:00 AM Scheduled Provider: [place] [place] Appointment Type:PT 60 (FT) Appointment Date:07/18/2022 01:00:00 PM Scheduled Provider: Location:.OCCUPATIONAL Appointment Type:OT 60 (FT) Appointment Date:07/18/2022 02:00:00 [...] Type:PT Re-Eval 60 (FT) [facility] Evaluation + Plan note Future Appointments Appointment Date:09/19/2022 10:00:00 AM Scheduled Provider: Location:[facility] Appointment Type:OT 60 (FT) Appointment Date:09/19/2022 11:00:00 AM Scheduled Provider: [place] [place] Appointment Type:PT 60 (FT) Appointment Date:09/24/2022 12:45:00 PM Scheduled Provider: Location:[facility] Appointment Type:OT 60 (FT) Appointment Date:09/24/2022 01:45:00 PM Scheduled Provider: [place] [place] Appointment Type:PT 60 (FT) Appointment Date:09/26/2022 01:00:00 PM Scheduled Provider: Location:[facility] Appointment Type:OT 60 (FT) Appointment Date:09/26/2022 02:00:00 PM Scheduled Provider: [place] [place] Appointment [...] (FT) Appointment Date:10/10/2022 09:30:00 AM Scheduled Provider: [place] [place] Appointment Type:PT 60 (FT) Appointment Date:10/10/2022 10:45:00 AM Scheduled Provider: Location:.[facility]CCUP[facility] Appointment Type:OT 60 (FT) Appointment Date:10/11/2022 10:15:00 AM Scheduled Provider:MARILIA CR PA-C Location[facility] Appointment Type:URO Office Visit Appointment Date:10/15/2022 08:45:00 [...] * Electrolyte Panel 09/18/22 [facility] Evaluation + Plan note Future Appointments [...] [place] [place] Appointment Type:PT 60 (FT) Appointment Date:10/30/2022 09:30:00 AM Scheduled Provider: [facility] Appointment Type:URO Nurse Visit Appointment Date:10/31/2022 01:30:00 PM Scheduled Provider: Location:[facility] Appointment Type:OT 60 (FT) Appointment Date:10/31/2022 02:30:00 PM Scheduled Provider: [place] [place] Appointment Type:PT 60 (FT) Appointment Date:11/05/2022 08:45:00 AM Scheduled Provider: [place] [place] Appointment Type:PT Re-Eval 60 (FT) Appointment Date:11/05/2022 10:00:00 AM Scheduled Provider: Location:.[facility]CCUP[facility] Appointment Type:OT Re-Eval (FT) [facility] Evaluation + Plan note Future Appointments Appointment Date:10/31/2022 02:30:00 PM Scheduled Provider: [place] [place] Appointment Type:PT 60 (FT) Appointment Date:11/05/2022 08:45:00 AM Scheduled Provider: [place] [place] Appointment Type:PT Re-Eval 60 (FT) Appointment Date:11/05/2022 10:00:00 AM Scheduled Provider: Location:.OCCUPATIONAL Appointment Type:OT Re-Eval (FT) Appointment Date:11/20/2022 09:30:00 AM Scheduled Provider: [facility] Appointment Type:URO Nurse Visit [facility] Evaluation + Plan note Future Appointments Appointment Date:11/21/2022 09:00:00 AM Scheduled Provider: Location:[facility] Appointment Type:OT 60 (FT) Appointment Date:11/26/2022 08:00:00 AM Scheduled Provider: Location:[facility] Appointment Type:OT 60 (FT) Appointment Date:11/28/2022 08:00:00 AM Scheduled Provider: Location:[facility] Appointment Type:OT 60 (FT) Appointment Date:12/03/2022 09:30:00 AM Scheduled Provider: Location:[facility] Appointment Type:OT 60 (FT) Appointment Date:12/05/2022 08:00:00 AM Scheduled Provider: Location:[facility] Appointment Type:OT Re-Eval (FT) Appointment Date:12/10/2022 08:45:00 AM Scheduled Provider: Location:[facility] Appointment Type:OT 60 (FT) Appointment Date:12/11/2022 09:00:00 AM Scheduled Provider: Location:[facility] [place] Appointment Type:URO Nurse Visit Appointment Date:12/12/2022 10:00:00 [...] Provider: Location:.[facility]CCUPATIONAL Appointment Type:[facility]Eval (FT[facility] Future Appointments Appointment Date:02/25/2023 10:15:00 AM Scheduled Provider: Location:[facility] Appointment Type:OT Re-Eval (FT) Appointment Date:02/25/2023 02:00:00 PM Scheduled Provider: [place] [place] Appointment Type:PT Re-Eval 60 (FT) Appointment Date:03/05/2023 09:30:00 AM Scheduled Provider: [facility] Appointment Type:URO Nurse Visit [facility] evaluation + Plan note Future Appointments Appointment Date:04/18/2023 08:45:00 AM Scheduled Provider: [place] [place] Appointment Type:PT Lite Gait (FT) Appointment Date:04/18/2023 09:45:00 AM Scheduled Provider: Location:.OCCUPATIONAL Appointment Type:OT Re-Eval (FT) Appointment Date:04/29/2023 08:45:00 AM Scheduled Provider: [place] [place] Appointment Type:PT 60 (FT) Appointment Date:2023 01:00:00 PM Scheduled Provider: [place] [place] Appointment Type:PT 60 (FT) Appointment Date:05/06/2023 11:00:00 AM Scheduled Provider: [place] [place] Appointment Type:PT 60 (FT) Appointment Date:05/07/2023 09:30:00 AM Scheduled Provider: [facility] Appointment Type:URO Nurse Visit Appointment Date:05/08/2023 08:45:00 AM Scheduled Provider: [place] [place] Appointment Type:PT 60 (FT) Appointment Date:05/13/2023 08:45:00 AM Scheduled Provider: [place] [place] Appointment Type:PT Re-Eval 60 (FT) Appointment Date:05/15/2023 09:00:00 AM Scheduled Provider: [place] [place] Appointment Type:PT 60 (FT) Appointment Date:05/20/2023 10:15:00 AM Scheduled Provider: [place] [place] Appointment Type:PT 60 (FT) Appointment Date:05/22/2023 08:45:00 AM Scheduled Provider: [place] [place] Appointment Type:PT 60 (FT) Appointment Date:05/27/2023 08:45:00 AM Scheduled Provider: [place] [place] Appointment Type:PT 60 (FT) Appointment Date:05/29/2023 08:45:00 AM Scheduled Provider: [place] Appointment Type:PT 60 (FT) Appointment Date:06/03/2023 10:15:00 AM Scheduled Provider: [place] Appointment Type:PT 60 (FT) Appointment Date:06/05/2023 08:45:00 AM Scheduled Provider: [place] Appointment Type:PT 60 (FT) Appointment Date:06/10/2023 08:45:00 AM Scheduled Provider: [place] Appointment Type:PT Re-Eval 60 (FT) Appointment Date:06/12/2023 08:45:00 AM Scheduled Provider: [place] Appointment Type:PT 60 (FT) Appointment Date:06/17/2023 08:45:00 AM Scheduled Provider: [place] Appointment Type:PT 60 (FT) Appointment Date:06/19/2023 08:45:00 AM Scheduled Provider: [place] Appointment Type:PT 60 (FT) Appointment Date:06/24/2023 08:45:00 AM Scheduled Provider: [place] Appointment Type:PT Re-Eval 60 (FT) [facility] [place] Evaluation + Plan note Future Appointments Appointment Date:05/08/2023 08:45:00 AM Scheduled Provider: [place] Appointment Type:PT 60 (FT) Appointment Date:05/08/2023 09:45:00 AM Scheduled Provider: Location:.OCCUPATIONAL Appointment Type:OT 60 (FT) Appointment Date:05/09/2023 12:00:00 PM Scheduled Provider:Camilo Deras DO Location[facility] [place] Appointment Type:Pain Management - Office Injection (FT) Appointment Date:05/13/2023 08:00:00 AM Scheduled Provider: Location:.OCCUPATIONAL Appointment Type:OT 60 (FT) Appointment Date:05/13/2023 08:45:00 AM Scheduled Provider: [place] Appointment Type:PT Re-Eval 60 (FT) Appointment Date:05/15/2023 09:00:00 AM Scheduled Provider: [place] [place] Appointment Type:PT 60 (FT) Appointment Date:05/15/2023 10:30:00 AM Scheduled Provider: Location:[facility] Appointment Type:OT Re-Eval (FT) Appointment Date:05/20/2023 08:30:00 AM Scheduled Provider: Location:.OCCUPATIONAL Appointment Type:OT 60 (FT) Appointment Date:05/20/2023 10:15:00 AM Scheduled Provider: [place] Appointment Type:PT 60 (FT) Appointment Date:05/22/2023 08:45:00 AM Scheduled Provider: [place] Appointment Type:PT 60 (FT) Appointment Date:05/22/2023 10:00:00 AM Scheduled Provider: Location:.OCCUPATIONAL Appointment Type:OT 60 (FT) Appointment Date:05/27/2023 08:45:00 AM Scheduled Provider: [place] Appointment Type:PT 60 (FT) Appointment Date:05/27/2023 09:45:00 AM Scheduled Provider: Location:.OCCUPATIONAL Appointment Type:OT 60 (FT) Appointment Date:05/28/2023 09:00:00 AM Scheduled Provider: Location:[facility] [place] [facility] [place] Appointment Type:URO Nurse Visit Appointment Date:05/29/2023 08:45:00 AM Scheduled Provider: [place] Appointment Type:PT 60 (FT) Appointment Date:05/29/2023 10:00:00 AM Scheduled Provider: Location:.OCCUPATIONAL Appointment Type:OT 60 (FT) Appointment Date:06/03/2023 09:00:00 AM Scheduled Provider: Location:.OCCUPATIONAL Appointment Type:OT 60 (FT) Appointment Date:06/03/2023 10:15:00 AM Scheduled Provider: [place] [place] Appointment Type:PT 60 (FT) Appointment Date:06/05/2023 08:45:00 AM Scheduled Provider: [place] [place] Appointment Type:PT 60 (FT) Appointment Date:06/05/2023 10:00:00 AM Scheduled Provider: Location:[facility] Appointment Type:OT Re-Eval (FT) Appointment Date:06/10/2023 08:45:00 AM Scheduled Provider: [place] [place] Appointment Type:PT Re-Eval 60 (FT) Appointment Date:06/12/2023 08:45:00 AM Scheduled Provider: [place] [place] Appointment Type:PT 60 (FT) Appointment Date:06/17/2023 08:45:00 AM Scheduled Provider: [place] [place] Appointment Type:PT 60 (FT) Appointment Date:06/19/2023 08:45:00 AM Scheduled Provider: [place] [place] Appointment Type:PT 60 (FT) Appointment Date:06/24/2023 08:45:00 AM Scheduled Provider: [place] [place] Appointment Type:PT Re-Eval 60 (FT) [facility] [place] Evaluation + Plan note Future Appointments Appointment Date:05/29/2023 08:45:00 AM Scheduled Provider: [place] [place] Appointment Type:PT 60 (FT) Appointment Date:05/29/2023 10:00:00 AM Scheduled Provider: Location:FT[facility] Appointment Type:OT 60 (FT) Appointment Date:06/03/2023 09:00:00 AM Scheduled Provider: Location:FT[facility]CC[facility] Appointment Type:OT 60 (FT) Appointment Date:06/03/2023 10:15:00 AM Scheduled Provider: [place] Appointment Type:PT 60 (FT) Appointment Date:06/05/2023 08:45:00 AM Scheduled Provider: [place] [place] Appointment Type:PT 60 (FT) Appointment Date:06/05/2023 10:00:00 AM Scheduled Provider: Location:FT[facility] Appointment Type:OT Re-Eval (FT) Appointment Date:06/10/2023 08:45:00 AM Scheduled Provider: [place] [place] Appointment Type:PT Re-Eval 60 (FT) Appointment Date:06/12/2023 08:45:00 AM Scheduled Provider: [place] Appointment Type:PT 60 (FT) Appointment Date:06/12/2023 10:45:00 AM Scheduled Provider: Location:.OCCUPATIONAL Appointment Type:OT 60 (FT) Appointment Date:06/17/2023 08:45:00 AM Scheduled Provider: [place] Appointment Type:PT 60 (FT) Appointment Date:06/17/2023 10:00:00 AM Scheduled Provider: Location:.OCCUPATIONAL Appointment Type:OT 60 (FT) Appointment Date:06/18/2023 09:30:00 AM Scheduled Provider: [facility] Appointment Type:URO Nurse Visit Appointment Date:06/19/2023 08:45:00 AM Scheduled Provider: [place] Appointment Type:PT 60 (FT) Appointment Date:06/19/2023 10:30:00 AM Scheduled Provider: Location:.OCCUPATIONAL Appointment Type:OT 60 (FT) Appointment Date:06/24/2023 08:45:00 AM Scheduled Provider: Location:FT.[facility]CCUP[facility] Appointment Type:OT 60 (FT) Appointment Date:06/24/2023 09:45:00 AM Scheduled Provider: [place] Appointment Type:PT Re-Eval 60 (FT) Appointment Date:06/26/2023 10:15:00 AM Scheduled Provider: Location:.OCCUPATIONAL Appointment Type:OT 60 (FT) Appointment Date:07/01/2023 09:30:00 AM Scheduled Provider: Location:.OCCUPATIONAL Appointment Type:OT 60 (FT) Appointment Date:07/03/2023 10:30:00 AM Scheduled Provider: Location:.OCCUPATIONAL Appointment Type:OT Re-Eval (FT) [facility] [place] Evaluation + Plan note Future Appointments Appointment Date:06/19/2023 08:45:00 AM Scheduled Provider: [place] Appointment Type:PT 60 (FT) Appointment Date:06/19/2023 10:30:00 AM Scheduled Provider: Location:.OCCUPATIONAL Appointment Type:OT 60 (FT) Appointment Date:06/24/2023 08:45:00 AM Scheduled Provider: Location:FT.[facility]CC[facility] Appointment Type:OT 60 (FT) Appointment Date:06/24/2023 09:45:00 AM Scheduled Provider: [place] Appointment Type:PT Re-Eval 60 (FT) Appointment Date:06/26/2023 10:15:00 AM Scheduled Provider: Location:FT.[facility]CCUP[facility] Appointment Type:OT 60 (FT) Appointment Date:07/01/2023 09:30:00 AM Scheduled Provider: Location:FT[facility]CCUP[facility] Appointment Type:OT 60 (FT) Appointment Date:07/03/2023 10:30:00 AM Scheduled Provider: Location:FT.[facility]CCUP[facility] Appointment Type:OT 60 (FT) Appointment Date:07/08/2023 09:30:00 AM Scheduled Provider: Location:FT.[facility]CCUP[facility] Appointment Type:OT 60 (FT) Appointment Date:07/09/2023 09:00:00 AM Scheduled Provider: Location:[facility] [place] Appointment Type:URO Nurse Visit Appointment Date:07/10/2023 10:00:00 AM Scheduled Provider: Location:FT.[facility]CCUP[facility] Appointment Type:OT Re-Eval (FT) Appointment Date:07/17/2023 10:00:00 AM Scheduled Provider: Location:FT.[facility]CCUP[facility] Appointment Type:OT 60 (FT) Appointment Date:07/19/2023 09:30:00 AM Scheduled Provider: Location:FT.[facility]CCUP[facility] Appointment Type:OT 60 (FT) Appointment Date:07/22/2023 09:30:00 AM Scheduled Provider: Location:FT.[facility]CCUP[facility] Appointment Type:OT 60 (FT) Appointment Date:07/24/2023 10:00:00 AM Scheduled Provider: Location:FT.[facility]CCUPATIONAL Appointment Type:OT 60 (FT) Appointment Date:07/29/2023 09:30:00 AM Scheduled Provider: Location:FT.[facility]CCUPATIONAL Appointment Type:OT 60 (FT) Appointment Date:07/31/2023 09:30:00 AM Scheduled Provider: Location:FT.[facility]CCUPATIONAL Appointment Type:OT 60 (FT) Appointment Date:08/05/2023 09:30:00 AM Scheduled Provider: Location:FT.[facility]CCUPATIONAL Appointment Type:OT 60 (FT) Appointment Date:08/07/2023 10:00:00 AM Scheduled Provider: Location:FT.[facility]CCUPATIONAL Appointment Type:OT Re-Eval (FT) Appointment Date:08/12/2023 09:30:00 AM Scheduled Provider: Location:FT.OCCUPATIONAL Appointment Type:OT 60 (FT) Appointment Date:08/14/2023 10:00:00 AM Scheduled Provider: Location:FT.OCCUPATIONAL Appointment Type:OT 60 (FT) Appointment Date:08/19/2023 09:30:00 AM Scheduled Provider: Location:FT.OCCUPATIONAL Appointment Type:OT 60 (FT) Appointment Date:08/21/2023 10:00:00 AM Scheduled Provider: Location:FT.OCCUPATIONAL Appointment Type:OT 60 (FT) Appointment Date:08/26/2023 09:30:00 AM Scheduled Provider: Location:FT.OCCUPATIONAL Appointment Type:OT 60 (FT) Appointment Date:08/28/2023 10:00:00 AM Scheduled Provider: Location:FT.OCCUPATIONAL Appointment Type:OT 60 (FT) Appointment Date:08/29/2023 01:15:00 PM Scheduled Provider:Camilo Deras DO Location:[facility] [place] Appointment Type:Pain Management - Office Injection (FT) Appointment Date:09/02/2023 09:30:00 AM Scheduled Provider: Location:FT.OCCUPATIONAL Appointment Type:OT 60 (FT) Appointment Date:09/04/2023 10:00:00 AM Scheduled Provider: Location:FT.[facility]CCUP[facility] Appointment Type:OT Re-Eval (FT) Appointment Date:09/09/2023 09:30:00 AM Scheduled Provider: Location:FT.OCCUPATIONAL Appointment Type:OT 60 (FT) Appointment Date:09/11/2023 10:00:00 AM Scheduled Provider: Location:FT.OCCUPATIONAL Appointment Type:OT 60 (FT) Appointment Date:09/16/2023 09:30:00 AM Scheduled Provider: Location:FT.[facility]CCUPATIONAL Appointment Type:OT 60 (FT) Appointment Date:09/18/2023 10:00:00 AM Scheduled Provider: Location:FT.OCCUP[facility] Appointment Type:OT 60 (FT) Appointment Date:09/23/2023 09:30:00 AM Scheduled Provider: Location:FT.OCCUPATIONAL Appointment Type:OT 60 (FT) Appointment Date:09/25/2023 10:00:00 AM Scheduled Provider: Location:FT.OCCUPATIONAL Appointment Type:OT 60 (FT) Appointment Date:09/30/2023 09:30:00 AM Scheduled Provider: Location:FT.[facility]CCUP[facility] Appointment Type:OT 60 (FT) Appointment Date:10/02/2023 10:00:00 AM Scheduled Provider: Location:.OCCUPATIONAL Appointment Type:OT Re-Eval (FT) Appointment Date:10/07/2023 09:30:00 AM Scheduled Provider: Location:FT.[facility]CCUP[facility] Appointment Type:OT 60 (FT) Appointment Date:10/09/2023 10:00:00 AM Scheduled Provider: Location:FT.OCCUPATIONAL Appointment Type:OT 60 (FT) Appointment Date:10/14/2023 09:30:00 AM Scheduled Provider: Location:FT.OCCUPATIONAL Appointment Type:OT 60 (FT) Appointment Date:10/16/2023 10:00:00 AM Scheduled Provider: Location:FT.OCCUP[facility] Appointment Type:OT Re-Eval (FT) [facility] Evaluation + Plan note Future Appointments Appointment Date:07/17/2023 09:00:00 AM Scheduled Provider: [place] Appointment Type:PT 60 (FT) Appointment Date:07/17/2023 10:00:00 AM Scheduled Provider: Location:FT.OCCUPATIONAL Appointment Type:OT 60 (FT) Appointment Date:07/19/2023 09:30:00 AM Scheduled Provider: Location:.OCCUPATIONAL Appointment Type:OT 60 (FT) Appointment Date:07/22/2023 08:30:00 AM Scheduled Provider: [place] Appointment Type:PT 60 (FT) Appointment Date:07/22/2023 09:30:00 AM Scheduled Provider: Location:.OCCUPATIONAL Appointment Type:OT 60 (FT) Appointment Date:07/24/2023 09:00:00 AM Scheduled Provider: [place] Appointment Type:PT Re-Eval 60 (FT) Appointment Date:07/24/2023 10:00:00 AM Scheduled Provider: Location:.OCCUPATIONAL Appointment Type:OT 60 (FT) Appointment Date:07/29/2023 09:30:00 AM Scheduled Provider: Location:.OCCUPATIONAL Appointment Type:OT 60 (FT) Appointment Date:07/29/2023 10:30:00 AM Scheduled Provider: [place] Appointment Type:PT 60 (FT) Appointment Date:07/30/2023 09:30:00 AM Scheduled Provider: [facility] Appointment Type:URO Nurse Visit Appointment Date:07/31/2023 08:30:00 AM Scheduled Provider: [place] [place] Appointment Type:PT 60 (FT) Appointment Date:07/31/2023 09:30:00 AM Scheduled Provider: Location:FT.OCCUPATIONAL Appointment Type:OT 60 (FT) Appointment Date:08/05/2023 08:30:00 AM Scheduled Provider: Location:FT.OCCUPATIONAL Appointment Type:OT 60 (FT) Appointment Date:08/05/2023 09:30:00 AM Scheduled Provider: [place] [place] Appointment Type:PT 60 (FT) Appointment Date:08/07/2023 09:00:00 AM Scheduled Provider: [place] [place] Appointment Type:PT 60 (FT) Appointment Date:08/07/2023 10:00:00 AM Scheduled Provider: Location:FT[facility]CCUP[facility] Appointment Type:OT Re-Eval (FT) Appointment Date:08/12/2023 09:30:00 AM Scheduled Provider: Location:FT.OCCUPATIONAL Appointment Type:OT 60 (FT) Appointment Date:08/12/2023 10:30:00 AM Scheduled Provider: [place] [place] Appointment Type:PT 60 (FT) Appointment Date:08/14/2023 09:00:00 AM Scheduled Provider: [place] [place] Appointment Type:PT 60 (FT) Appointment Date:08/14/2023 10:00:00 AM Scheduled Provider: Location:FT[facility]CCUP[facility] Appointment Type:OT 60 (FT) Appointment Date:08/19/2023 09:30:00 AM Scheduled Provider: Location:FT[facility]CCUP[facility] Appointment Type:OT 60 (FT) Appointment Date:08/19/2023 10:30:00 AM Scheduled Provider: [place] [place] Appointment Type:PT 60 (FT) Appointment Date:08/21/2023 08:45:00 AM Scheduled Provider: [place] [place] Appointment Type:PT Re-Eval 60 (FT) Appointment Date:08/21/2023 10:00:00 AM Scheduled Provider: Location:FT[facility] Appointment Type:OT 60 (FT) Appointment Date:08/26/2023 09:30:00 AM Scheduled Provider: Location:FT.[facility]CCUPATIONAL Appointment Type:OT 60 (FT) Appointment Date:08/26/2023 10:30:00 AM Scheduled Provider: [place] [place] Appointment Type:PT 60 (FT) Appointment Date:08/28/2023 09:00:00 AM Scheduled Provider: [place] [place] Appointment Type:PT 60 (FT) Appointment Date:08/28/2023 10:00:00 AM Scheduled Provider: Location:FT[facility]CCUP[facility] Appointment Type:OT 60 (FT) Appointment Date:08/29/2023 01:15:00 PM Scheduled Provider:Camilo Deras DO Location[facility] [place] Appointment Type:Pain Management - Office Injection (FT) Appointment Date:09/02/2023 08:30:00 AM Scheduled Provider: [place] [place] Appointment Type:PT 60 (FT) Appointment Date:09/02/2023 09:30:00 AM Scheduled Provider: Location:FT.OCCUPATIONAL Appointment Type:OT 60 (FT) Appointment Date:09/04/2023 09:00:00 AM Scheduled Provider: [place] [place] Appointment Type:PT 60 (FT) Appointment Date:09/04/2023 10:00:00 AM Scheduled Provider: Location:FT[facility]CCUPATIONAL Appointment Type:OT Re-Eval (FT) Appointment Date:09/09/2023 09:30:00 AM Scheduled Provider: Location:FT[facility]OCCUPATIONAL Appointment Type:OT 60 (FT) Appointment Date:09/09/2023 10:30:00 AM Scheduled Provider: [facility] [place] Appointment Type:PT 60 (FT) Appointment Date:09/11/2023 09:00:00 AM Scheduled Provider: [facility] [place] Appoint[place] Type:PT 60 (FT) Appointment Date:09/11/2023 10:00:00 AM Scheduled Provider: Location:[facility] Appointment Type:OT 60 (FT) Appointment Date:09/16/2023 08:30:00 AM Scheduled Provider: [facility] [place] Appointment Type:PT 60 (FT) Appointment Date:09/16/2023 09:30:00 AM Scheduled Provider: [facility] Appointment Type:OT 60 (FT) Appointment Date:09/18/2023 08:45:00 AM Scheduled Provider: [facility] [place] Appoint[place] Type:PT Re-Eval 60 (FT) Appointment Date:09/18/2023 10:00:00 AM Scheduled Provider: [facility] Appointment Type:OT 60 (FT) Appointment Date:09/23/2023 09:30:00 AM Scheduled Provider: [facility] Appointment Type:OT 60 (FT) Appointment Date:09/23/2023 10:30:00 AM Scheduled Provider: [facility] [place] App[place] Type:PT 60 (FT) Appointment Date:09/25/2023 09:00:00 AM Scheduled Provider: [facility] [place] Appoint[place] Type:PT 60 (FT) Appointment Date:09/25/2023 10:00:00 AM Scheduled Provider: [facility] Appointment Type:OT 60 (FT) Appointment Date:09/30/2023 08:30:00 AM Scheduled Provider: [facility] [place] Appoint[place] Type:PT 60 (FT) Appointment Date:09/30/2023 09:30:00 AM Scheduled Provider: [facility] Appointment Type:OT 60 (FT) Appointment Date:10/02/2023 09:00:00 AM Scheduled Provider: [facility] [place] Appoint[place] Type:PT 60 (FT) Appointment Date:10/02/2023 10:00:00 AM Scheduled Provider: [facility] Appointment Type:OT Re-Eval (FT) Appointment Date:10/07/2023 08:30:00 AM Scheduled Provider: [facility] [place] Appoint[place] Type:PT 60 (FT) Appointment Date:10/07/2023 09:30:00 AM Scheduled Provider: Location[facility] Appointment Type:OT 60 (FT) Appointment Date:10/09/2023 09:00:00 AM Scheduled Provider: [facility] [place] Appoint[place] Type:PT 60 (FT) Appointment Date:10/09/2023 10:00:00 AM Scheduled Provider: [facility] Appointment Type:OT 60 (FT) Appointment Date:10/14/2023 09:30:00 AM Scheduled Provider: [facility] Appointment Type:OT 60 (FT) Appointment Date:10/14/2023 10:30:00 AM Scheduled Provider: [place] [place] Appoint[place] Type:PT 60 (FT) Appointment Date:10/16/2023 08:45:00 AM Scheduled Provider: [place] [place] Appoint[place] Type:PT Re-Eval 60 (FT) Appointment Date:10/16/2023 10:00:00 AM Scheduled Provider: Location[facility] Appointment Type:OT Re-Eval (FT) [facility] Evaluation + Plan note Future Appointments Appointment Date:07/31/2023 08:30:00 AM Scheduled Provider: [place] [place] Appointment Type:PT Re-Eval 60 (FT) Appointment Date:07/31/2023 09:30:00 AM Scheduled Provider: Location:[facility] Appointment Type:OT 60 (FT) Appointment Date:08/05/2023 08:30:00 AM Scheduled Provider: Location:[facility] Appointment Type:OT 60 (FT) Appointment Date:08/05/2023 09:30:00 AM Scheduled Provider: [facility] [place] Appointment Type:PT 60 (FT) Appointment Date:08/07/2023 09:00:00 AM Scheduled Provider: [place] [place] Appoint[place] Type:PT 60 (FT) Appointment Date:08/07/2023 10:00:00 AM Scheduled Provider: Location:[facility] Appointment Type:OT Re-Eval (FT) Appointment Date:08/12/2023 08:30:00 AM Scheduled Provider: [place] [place] Appoint[place] Type:PT 60 (FT) Appointment Date:08/12/2023 09:30:00 AM Scheduled Provider: Location:[facility] Appointment Type:OT 60 (FT) Appointment Date:08/14/2023 08:45:00 AM Scheduled Provider: [place] [place] Appoint[place] Type:PT 60 (FT) Appointment Date:08/14/2023 10:00:00 AM Scheduled Provider: Location:[facility] Appointment Type:OT 60 (FT) Appointment Date:08/19/2023 08:30:00 AM Scheduled Provider: [place] [place] Appoint[place] Type:PT 60 (FT) Appointment Date:08/19/2023 09:30:00 AM Scheduled Provider: Location[facility] Appointment Type:OT 60 (FT) Appointment Date:08/20/2023 09:30:00 AM Scheduled Provider: [facility] Appointment Type:URO Nurse Visit Appointment Date:08/21/2023 08:45:00 AM Scheduled Provider: [facility] [place] Appointment Type:PT Re-Eval 60 (FT) Appointment Date:08/21/2023 10:00:00 AM Scheduled Provider: Location:[facility] Appointment Type:OT 60 (FT) Appointment Date:08/26/2023 08:30:00 AM Scheduled Provider: [facility] [place] Appoint[place] Type:PT 60 (FT) Appointment Date:08/26/2023 09:30:00 AM Scheduled Provider: Location:[facility] Appointment Type:OT 60 (FT) Appointment Date:08/28/2023 08:45:00 AM Scheduled Provider: [facility] [place] Appoint[place] Type:PT 60 (FT) Appointment Date:08/28/2023 10:00:00 AM Scheduled Provider: Location:[facility] Appointment Type:OT 60 (FT) Appointment Date:08/29/2023 01:15:00 PM Scheduled Provider:Camilo Deras DO Location[facility] Appointment Type:Pain Management - Office Injection (FT) Appointment Date:09/02/2023 08:30:00 AM Scheduled Provider: [facility] [place] Appointment Type:PT 60 (FT) Appointment Date:09/02/2023 09:30:00 AM Scheduled Provider: Location:[facility] Appointment Type:OT 60 (FT) Appointment Date:09/04/2023 08:45:00 AM Scheduled Provider: [facility] [place] Appoint[place] Type:PT 60 (FT) Appointment Date:09/04/2023 10:00:00 AM Scheduled Provider: Location:[facility] Appointment Type:OT Re-Eval (FT) Appointment Date:09/09/2023 08:30:00 AM Scheduled Provider: [facility] [place] Appoint[place] Type:PT 60 (FT) Appointment Date:09/09/2023 09:30:00 AM Scheduled Provider: Location:[facility] Appointment Type:OT 60 (FT) Appointment Date:09/11/2023 08:45:00 AM Scheduled Provider: [facility] [place] Appoint[place] Type:PT 60 (FT) Appointment Date:09/11/2023 10:00:00 AM Scheduled Provider: Location:[facility] Appointment Type:OT 60 (FT) Appointment Date:09/16/2023 08:30:00 AM Scheduled Provider: [facility] [place] Appoint[place] Type:PT 60 (FT) Appointment Date:09/16/2023 09:30:00 AM Scheduled Provider: Location:[facility] Appointment Type:OT 60 (FT) Appointment Date:09/18/2023 08:45:00 AM Scheduled Provider: [facility] [place] Appointment Type:PT Re-Eval 60 (FT) Appointment Date:09/18/2023 10:00:00 AM Scheduled Provider: Location:[facility] Appointment Type:OT 60 (FT) Appointment Date:09/23/2023 08:30:00 AM Scheduled Provider: [facility] [place] Appointment Type:PT 60 (FT) Appointment Date:09/23/2023 09:30:00 AM Scheduled Provider: Location:[facility] Appointment Type:OT 60 (FT) Appointment Date:09/25/2023 08:45:00 AM Scheduled Provider: [facility] [place] Appoint[place] Type:PT 60 (FT) Appointment Date:09/25/2023 10:00:00 AM Scheduled Provider: Location:[facility] Appointment Type:OT 60 (FT) Appointment Date:09/30/2023 08:30:00 AM Scheduled Provider: [facility] [place] Appointment Type:PT 60 (FT) Appointment Date:09/30/2023 09:30:00 AM Scheduled Provider: Location:[facility] Appointment Type:OT 60 (FT) Appointment Date:10/02/2023 08:45:00 AM Scheduled Provider: [facility] [place] Appointment Type:PT 60 (FT) Appointment Date:10/02/2023 10:00:00 AM Scheduled Provider: Location:[facility] Appointment Type:OT Re-Eval (FT) Appointment Date:10/07/2023 08:30:00 AM Scheduled Provider: [facility] [place] Appointment Type:PT 60 (FT) Appointment Date:10/07/2023 09:30:00 AM Scheduled Provider: Location:[facility] Appointment Type:OT 60 (FT) Appointment Date:10/09/2023 08:45:00 AM Scheduled Provider: [facility] [place] Appointment Type:PT 60 (FT) Appointment Date:10/09/2023 10:00:00 AM Scheduled Provider: Location:[facility] Appointment Type:OT 60 (FT) Appointment Date:10/14/2023 08:30:00 AM Scheduled Provider: [facility] [place] Appointment Type:PT 60 (FT) Appointment Date:10/14/2023 09:30:00 AM Scheduled Provider: Location[facility] Appointment Type:OT 60 (FT) Appointment Date:10/16/2023 08:45:00 AM Scheduled Provider: [facility] [place] Appointment Type:PT Re-Eval 60 (FT) Appointment Date:10/16/2023 10:00:00 AM Scheduled Provider: Location:[facility] Appointment Type:OT Re-Eval (FT) [facility] Evaluation + Plan note Future Appointments Appointment Date:08/21/2023 08:45:00 AM Scheduled Provider: [place] [place] Appoint[place] Type:PT Re-Eval 60 (FT) Appointment Date:08/21/2023 10:00:00 AM Scheduled Provider: Location:[facility] Appointment Type:OT 60 (FT) Appointment Date:08/26/2023 08:30:00 AM Scheduled Provider: [facility] [place] Appointment Type:PT 60 (FT) Appointment Date:08/26/2023 09:30:00 AM Scheduled Provider: Location:[facility] Appointment Type:OT 60 (FT) Appointment Date:08/28/2023 08:45:00 AM Scheduled Provider: [place] [place] Appoint[place] Type:PT 60 (FT) Appointment Date:08/28/2023 10:00:00 AM Scheduled Provider: Location:[facility] Appointment Type:OT 60 (FT) Appointment Date:08/29/2023 01:15:00 PM Scheduled Provider:Camilo Deras DO Location[facility] Appointment Type:Pain Management - Office Injection (FT) Appointment Date:09/02/2023 08:30:00 AM Scheduled Provider: [place] [place] Appointment Type:PT 60 (FT) Appointment Date:09/02/2023 09:30:00 AM Scheduled Provider: Location:[facility] Appointment Type:OT 60 (FT) Appointment Date:09/04/2023 08:45:00 AM Scheduled Provider: [facility] [place] Appointment Type:PT 60 (FT) Appointment Date:09/04/2023 10:00:00 AM Scheduled Provider: Location:[facility] Appointment Type:OT Re-Eval (FT) Appointment Date:09/09/2023 08:30:00 AM Scheduled Provider: [facility] [place] Appointment Type:PT 60 (FT) Appointment Date:09/09/2023 09:30:00 AM Scheduled Provider: Location:[facility] Appointment Type:OT 60 (FT) Appointment Date:09/10/2023 10:00:00 AM Scheduled Provider: Location:[facility] Appointment Type:URO Nurse Visit Appointment Date:09/11/2023 08:45:00 AM Scheduled Provider: [facility] [place] Appointment Type:PT 60 (FT) Appointment Date:09/11/2023 10:00:00 AM Scheduled Provider: Location:[facility] Appointment Type:OT 60 (FT) Appointment Date:09/16/2023 08:30:00 AM Scheduled Provider: [facility] [place] Appointment Type:PT 60 (FT) Appointment Date:09/16/2023 09:30:00 AM Scheduled Provider: Location:[facility] Appointment Type:OT 60 (FT) Appointment Date:09/18/2023 08:45:00 AM Scheduled Provider: [facility] [place] Appointment Type:PT Re-Eval 60 (FT) Appointment Date:09/18/2023 10:00:00 AM Scheduled Provider: Location:[facility] Appointment Type:OT 60 (FT) Appointment Date:09/23/2023 08:30:00 AM Scheduled Provider: [facility] [place] Appointment Type:PT 60 (FT) Appointment Date:09/23/2023 09:30:00 AM Scheduled Provider: Location:[facility] Appointment Type:OT 60 (FT) Appointment Date:09/25/2023 08:45:00 AM Scheduled Provider: [facility] [place] Appointment Type:PT 60 (FT) Appointment Date:09/25/2023 10:00:00 AM Scheduled Provider: Location:[facility] Appointment Type:OT 60 (FT) Appointment Date:09/30/2023 08:30:00 AM Scheduled Provider: [facility] [place] Appointment Type:PT 60 (FT) Appointment Date:09/30/2023 09:30:00 AM Scheduled Provider: Location:[facility] Appointment Type:OT 60 (FT) Appointment Date:10/02/2023 08:45:00 AM Scheduled Provider: [facility] [place] Appointment Type:PT 60 (FT) Appointment Date:10/02/2023 10:00:00 AM Scheduled Provider: Location:[facility] Appointment Type:OT Re-Eval (FT) Appointment Date:10/07/2023 08:30:00 AM Scheduled Provider: [facility] [place] Appointment Type:PT 60 (FT) Appointment Date:10/07/2023 09:30:00 AM Scheduled Provider: Location:[facility] Appointment Type:OT 60 (FT) Appointment Date:10/09/2023 08:45:00 AM Scheduled Provider: [facility] [place] Appointment Type:PT 60 (FT) Appointment Date:10/09/2023 10:00:00 AM Scheduled Provider: Location:[facility] Appointment Type:OT 60 (FT) Appointment Date:10/14/2023 08:30:00 AM Scheduled Provider: [facility] [place] Appointment Type:PT 60 (FT) Appointment Date:10/14/2023 09:30:00 AM Scheduled Provider: Location:[facility] Appointment Type:OT 60 (FT) Appointment Date:10/16/2023 08:45:00 AM Scheduled Provider: [facility] [place] Appointment Type:PT Re-Eval 60 (FT) Appointment Date:10/16/2023 10:00:00 AM Scheduled Provider: Location:[facility] Appointment Type:OT Re-Eval (FT) [facility] Evaluation + Plan note Future Appointments Appointment Date:09/11/2023 08:45:00 AM Scheduled Provider: [facility] [place] Appointment Type:PT 60 (FT) Appointment Date:09/11/2023 10:00:00 AM Scheduled Provider: Location:[facility] Appointment Type:OT 60 (FT) Appointment Date:09/16/2023 08:30:00 AM Scheduled Provider: [facility] [place] Appointment Type:PT 60 (FT) Appointment Date:09/16/2023 09:30:00 AM Scheduled Provider: Location:[facility] Appointment Type:OT 60 (FT) Appointment Date:09/18/2023 08:45:00 AM Scheduled Provider: [facility] [place] Appointment Type:PT Re-Eval 60 (FT) Appointment Date:09/18/2023 10:00:00 AM Scheduled Provider: Location:[facility] Appointment Type:OT 60 (FT) Appointment Date:09/23/2023 08:30:00 AM Scheduled Provider: [place] [place] Appoint[place] Type:PT 60 (FT) Appointment Date:09/23/2023 09:30:00 AM Scheduled Provider: Location:[facility] Appointment Type:OT 60 (FT) Appointment Date:09/25/2023 08:45:00 AM Scheduled Provider: [facility] [place] Appointment Type:PT 60 (FT) Appointment Date:09/25/2023 10:00:00 AM Scheduled Provider: Location:[facility] Appointment Type:OT 60 (FT) Appointment Date:09/30/2023 08:30:00 AM Scheduled Provider: [place] [place] Appoint[place] Type:PT 60 (FT) Appointment Date:09/30/2023 09:30:00 AM Scheduled Provider: Location[facility] Appointment Type:OT 60 (FT) Appointment Date:10/01/2023 10:00:00 AM Scheduled Provider: Location:[facility] Appointment Type:URO Nurse Visit Appointment Date:10/02/2023 08:45:00 AM Scheduled Provider: [place] [place] Appoint[place] Type:PT 60 (FT) Appointment Date:10/02/2023 10:00:00 AM Scheduled Provider: Location[facility] Appointment Type:OT Re-Eval (FT) Appointment Date:10/07/2023 08:30:00 AM Scheduled Provider: [place] [place] Appoint[place] Type:PT 60 (FT) Appointment Date:10/07/2023 09:30:00 AM Scheduled Provider: Location:[facility] Appointment Type:OT 60 (FT) Appointment Date:10/09/2023 08:45:00 AM Scheduled Provider: [facility] [place] Appointment Type:PT 60 (FT) Appointment Date:10/09/2023 10:00:00 AM Scheduled Provider: Location:[facility] Appointment Type:OT 60 (FT) Appointment Date:10/14/2023 08:30:00 AM Scheduled Provider: [place] [place] Appoint[place] Type:PT Re-Eval 60 (FT) Appointment Date:10/14/2023 09:30:00 AM Scheduled Provider: Location:[facility] Appointment Type:OT 60 (FT) Appointment Date:10/16/2023 08:45:00 AM Scheduled Provider: [facility] [place] Appointment Type:PT 60 (FT) Appointment Date:10/16/2023 10:00:00 AM Scheduled Provider: Location:[facility] Appointment Type:OT Re-Eval (FT) [facility] Evaluation + Plan note Future Appointments Appointment Date:10/02/2023 08:45:00 AM Scheduled Provider: [facility] [place] Appointment Type:PT 60 (FT) Appointment Date:10/02/2023 10:00:00 AM Scheduled Provider: Location:[facility] Appointment Type:OT 60 (FT) Appointment Date:10/07/2023 08:30:00 AM Scheduled Provider: [facility] [place] Appointment Type:PT Re-Eval 60 (FT) Appointment Date:10/07/2023 09:30:00 AM Scheduled Provider: Location:[facility] Appointment Type:OT 60 (FT) Appointment Date:10/09/2023 08:45:00 AM Scheduled Provider: [facility] [place] Appointment Type:PT 60 (FT) Appointment Date:10/09/2023 10:00:00 AM Scheduled Provider: Location:[facility] Appointment Type:OT 60 (FT) Appointment Date:10/14/2023 08:30:00 AM Scheduled Provider: [facility] [place] Appointment Type:PT 60 (FT) Appointment Date:10/14/2023 09:30:00 AM Scheduled Provider: Location:[facility] Appointment Type:OT 60 (FT) Appointment Date:10/16/2023 08:45:00 AM Scheduled Provider: [facility] [place] Appointment Type:PT 60 (FT) Appointment Date:10/16/2023 10:00:00 AM Scheduled Provider: Location:[facility] Appointment Type:OT 60 (FT) Appointment Date:10/22/2023 09:00:00 AM Scheduled Provider: [place] [place] Appoint[place] Type:PT 60 (FT) Appointment Date:10/22/2023 10:00:00 AM Scheduled Provider: Location:[facility] Appointment Type:OT Re-Eval (FT) Appointment Date:10/23/2023 11:30:00 AM Scheduled Provider:Lakia Mcdonnell Location[facility] Appointment Type:URO Office Visit Appointment Date:10/24/2023 08:30:00 AM Scheduled Provider: [place] [place] Appoint[place] Type:PT 60 (FT) Appointment Date:10/24/2023 09:30:00 AM Scheduled Provider: Location[facility] Appointment Type:OT 60 (FT) Appointment Date:10/29/2023 08:30:00 AM Scheduled Provider: Location:[facility] Appointment Type:OT 60 (FT) Appointment Date:10/29/2023 10:00:00 AM Scheduled Provider: [place] [place] Appoint[place] Type:PT 60 (FT) Appointment Date:10/31/2023 08:30:00 AM Scheduled Provider: Location[facility] Appointment Type:OT 60 (FT) Appointment Date:10/31/2023 10:00:00 AM Scheduled Provider: [place] [place] Appointment Type:PT Re-Eval 60 (FT) Appointment Date:11/06/2023 08:45:00 AM Scheduled Provider: [place] [place] Appoint[place] Type:PT 60 (FT) Appointment Date:11/06/2023 10:00:00 AM Scheduled Provider: Location[facility] Appointment Type:OT 60 (FT) Appointment Date:11/08/2023 08:30:00 AM Scheduled Provider: Location[facility] Appointment Type:OT 60 (FT) Appointment Date:11/08/2023 09:30:00 AM Scheduled Provider: [place] [place] Appoint[place] Type:PT 60 (FT) Appointment Date:11/11/2023 08:45:00 AM Scheduled Provider: [place] [place] Appoint[place] Type:PT 60 (FT) Appointment Date:11/13/2023 11:00:00 AM Scheduled Provider:Lakia Mcdonnell Location[facility] Appointment Type:URO Office Visit Appointment Date:11/14/2023 09:30:00 AM Scheduled Provider: [place] [place] Appoint[place] Type:PT 60 (FT) Appointment Date:11/14/2023 10:30:00 AM Scheduled Provider: Location[facility] Appointment Type:OT 60 (FT) Appointment Date:11/18/2023 08:30:00 AM Scheduled Provider: Location[facility] Appointment Type:OT 60 (FT) Appointment Date:11/18/2023 09:45:00 AM Scheduled Provider: [facility] [place] Appointment Type:PT 60 (FT) Appointment Date:11/21/2023 08:30:00 AM Scheduled Provider: [place] [place] Appoint[place] Type:PT 60 (FT) Appointment Date:11/21/2023 09:30:00 AM Scheduled Provider: Location[facility] Appointment Type:OT Re-Eval (FT) Appointment Date:11/25/2023 08:45:00 AM Scheduled Provider: [place] [place] Appoint[place] Type:PT 60 (FT) Appointment Date:11/25/2023 09:45:00 AM Scheduled Provider: Location:[facility] Appointment Type:OT 60 (FT) Appointment Date:11/28/2023 08:30:00 AM Scheduled Provider: [place] [place] Appoint[place] Type:PT Re-Eval 60 (FT) Appointment Date:11/28/2023 09:30:00 AM Scheduled Provider: Location:[facility] Appointment Type:OT 60 (FT) Appointment Date:12/02/2023 10:15:00 AM Scheduled Provider:Camilo Deras DO Location:.[facility] Appointment Type:Pain Management - Office Injection (FT) Appointment Date:12/03/2023 08:30:00 AM Scheduled Provider: [place] [place] Appointment Type:PT 60 (FT) Appointment Date:12/03/2023 09:30:00 AM Scheduled Provider: Location[facility] Appointment Type:OT 60 (FT) Appointment Date:12/04/2023 02:30:00 PM Scheduled Provider:Lakia Mcdonnell Location[facility] Appointment Type:URO Office Visit Appointment Date:12/05/2023 12:15:00 PM Scheduled Provider: Location[facility] Appointment Type:OT 60 (FT) Appointment Date:12/05/2023 01:45:00 PM Scheduled Provider: [place] [place] Appoint[place] Type:PT 60 (FT) Appointment Date:12/11/2023 09:00:00 AM Scheduled Provider: [place] [place] Appoint[place] Type:PT 60 (FT) Appointment Date:12/11/2023 10:00:00 AM Scheduled Provider: Location:[facility] Appointment Type:OT 60 (FT) Appointment Date:12/13/2023 08:30:00 AM Scheduled Provider: Location:[facility] Appointment Type:OT 60 (FT) Appointment Date:12/13/2023 09:30:00 AM Scheduled Provider: [facility] [place] Appointment Type:PT 60 (FT) Appointment Date:12/16/2023 08:45:00 AM Scheduled Provider: [facility] [place] Appointment Type:PT 60 (FT) Appointment Date:12/16/2023 09:45:00 AM Scheduled Provider: Location:[facility] Appointment Type:OT 60 (FT) Appointment Date:12/19/2023 08:30:00 AM Scheduled Provider: [facility] [place] Appointment Type:PT 60 (FT) Appointment Date:12/19/2023 09:30:00 AM Scheduled Provider: Location:[facility] Appointment Type:OT Re-Eval (FT) Appointment Date:12/23/2023 08:45:00 AM Scheduled Provider: [facility] [place] Appointment Type:PT 60 (FT) Appointment Date:12/23/2023 09:45:00 AM Scheduled Provider: Location:[facility] Appointment Type:OT 60 (FT) Appointment Date:12/26/2023 08:30:00 AM Scheduled Provider: [place] [place] Appoint[place] Type:PT Re-Eval 60 (FT) Appointment Date:12/26/2023 09:30:00 AM Scheduled Provider: Location:[facility] Appointment Type:OT 60 (FT) Appointment Date:12/30/2023 08:45:00 AM Scheduled Provider: [facility] [place] Appointment Type:PT 60 (FT) Appointment Date:12/30/2023 09:45:00 AM Scheduled Provider: Location:[facility] Appointment Type:OT 60 (FT) Appointment Date:01/02/2024 08:30:00 AM Scheduled Provider: [facility] [place] Appointment Type:PT 60 (FT) Appointment Date:01/02/2024 09:30:00 AM Scheduled Provider: Location:[facility] Appointment Type:OT 60 (FT) Appointment Date:01/06/2024 08:45:00 AM Scheduled Provider: [facility] [place] Appointment Type:PT 60 (FT) Appointment Date:01/06/2024 09:45:00 AM Scheduled Provider: Location:[facility] Appointment Type:OT 60 (FT) Appointment Date:01/09/2024 08:30:00 AM Scheduled Provider: [facility] [place] Appointment Type:PT 60 (FT) Appointment Date:01/09/2024 09:30:00 AM Scheduled Provider: Location:[facility] Appointment Type:OT 60 (FT) Appointment Date:01/13/2024 08:45:00 AM Scheduled Provider: [facility] [place] Appointment Type:PT 60 (FT) Appointment Date:01/13/2024 09:45:00 AM Scheduled Provider: Location:[facility] Appointment Type:OT 60 (FT) Appointment Date:01/15/2024 08:45:00 AM Scheduled Provider: [facility] [place] Appointment Type:PT 60 (FT) Appointment Date:01/15/2024 10:00:00 AM Scheduled Provider: Location:[facility] Appointment Type:OT Re-Eval (FT) Appointment Date:01/20/2024 08:45:00 AM Scheduled Provider: [place] [place] Appoint[place] Type:PT 60 (FT) Appointment Date:01/20/2024 09:45:00 AM Scheduled Provider: Location:[facility] Appointment Type:OT 60 (FT) Appointment Date:01/23/2024 08:30:00 AM Scheduled Provider: [facility] [place] Appointment Type:PT Re-Eval 60 (FT) Appointment Date:01/23/2024 09:30:00 AM Scheduled Provider: Location:[facility] Appointment Type:OT 60 (FT) Appointment Date:01/29/2024 09:00:00 AM Scheduled Provider: [facility] [place] Appointment Type:PT 60 (FT) Appointment Date:01/29/2024 10:00:00 AM Scheduled Provider: Location:[facility] Appointment Type:OT 60 (FT) Appointment Date:01/31/2024 08:30:00 AM Scheduled Provider: Location:[facility] Appointment Type:OT 60 (FT) Appointment Date:01/31/2024 09:45:00 AM Scheduled Provider: [facility] [place] Appointment Type:PT 60 (FT) Appointment Date:02/03/2024 08:45:00 AM Scheduled Provider: [facility] [place] Appointment Type:PT 60 (FT) Appointment Date:02/03/2024 10:00:00 AM Scheduled Provider: Location:[facility] Appointment Type:OT 60 (FT) Appointment Date:02/06/2024 08:30:00 AM Scheduled Provider: [facility] [place] Appointment Type:PT 60 (FT) Appointment Date:02/06/2024 09:30:00 AM Scheduled Provider: Location:FT.[facility]UPATIONAL Appointment Type:OT 60 (FT) Appointment Date:02/10/2024 08:45:00 AM Scheduled Provider: [place] [place] Appointment Type:PT 60 (FT) Appointment Date:02/10/2024 10:00:00 AM Scheduled Provider: Location:FT.[facility]CCUPATIONAL Appointment Type:OT 60 (FT) Appointment Date:02/13/2024 08:30:00 AM Scheduled Provider: [place] [place] Appointment Type:PT 60 (FT) Appointment Date:02/13/2024 10:00:00 AM Scheduled Provider: Location:FT.OCCUPATIONAL Appointment Type:OT Re-Eval (FT) Appointment Date:02/17/2024 08:45:00 AM Scheduled Provider: [place] [place] Appointment Type:PT Re-Eval 60 (FT) Appointment Date:02/17/2024 10:00:00 AM Scheduled Provider: Location:FT.OCCUPATIONAL Appointment Type:OT 60 (FT) [facility] Evaluation + Plan note Future Appointments Appointment Date:10/24/2023 08:30:00 AM Scheduled Provider: [place] Appointment Type:PT 60 (FT) Appointment Date:10/24/2023 09:30:00 AM Scheduled Provider: Location:FT.OCCUPATIONAL Appointment Type:OT 60 (FT) Appointment Date:10/29/2023 08:30:00 AM Scheduled Provider: Location:FT.OCCUPATIONAL Appointment Type:OT 60 (FT) Appointment Date:10/29/2023 10:00:00 AM Scheduled Provider: [place] Appointment Type:PT 60 (FT) Appointment Date:10/31/2023 08:30:00 AM Scheduled Provider: Location:FT.OCCUPATIONAL Appointment Type:OT 60 (FT) Appointment Date:10/31/2023 10:00:00 AM Scheduled Provider: [place] Appointment Type:PT Re-Eval 60 (FT) Appointment Date:10/31/2023 11:30:00 AM Scheduled Provider:ADRIAN Sweet APRN, [place] [facility] Appointment Type:URO Office Visit Appointment Date:11/06/2023 08:45:00 AM Scheduled Provider: Location[place] Appointment Type:PT 60 (FT) Appointment Date:11/06/2023 10:00:00 AM Scheduled Provider: Location:FT.OCCUPATIONAL Appointment Type:OT 60 (FT) Appointment Date:11/08/2023 08:30:00 AM Scheduled Provider: Location:FT.OCCUPATIONAL Appointment Type:OT 60 (FT) Appointment Date:11/08/2023 09:30:00 AM Scheduled Provider: [place] Appointment Type:PT 60 (FT) Appointment Date:11/11/2023 08:45:00 AM Scheduled Provider: [place] Appointment Type:PT 60 (FT) Appointment Date:11/13/2023 11:00:00 AM Scheduled Provider:Lakia Mcdonnell [facility] Appointment Type:URO Office Visit Appointment Date:11/14/2023 09:30:00 AM Scheduled Provider: [place] [place] Appointment Type:PT 60 (FT) Appointment Date:11/14/2023 10:30:00 AM Scheduled Provider: Location:.OCCUPATIONAL Appointment Type:OT 60 (FT) Appointment Date:11/18/2023 08:30:00 AM Scheduled Provider: Location:FT.OCCUPATIONAL Appointment Type:OT 60 (FT) Appointment Date:11/18/2023 09:45:00 AM Scheduled Provider: [place] Appointment Type:PT 60 (FT) Appointment Date:11/21/2023 08:30:00 AM Scheduled Provider: Location[place] Appointment Type:PT 60 (FT) Appointment Date:11/21/2023 09:30:00 AM Scheduled Provider: Location:FT.OCCUPATIONAL Appointment Type:OT Re-Eval (FT) Appointment Date:11/25/2023 08:45:00 AM Scheduled Provider: [place] Appointment Type:PT 60 (FT) Appointment Date:11/25/2023 09:45:00 AM Scheduled Provider: Location:.OCCUPATIONAL Appointment Type:OT 60 (FT) Appointment Date:11/28/2023 08:30:00 AM Scheduled Provider: [place] Appointment Type:PT Re-Eval 60 (FT) Appointment Date:11/28/2023 09:30:00 AM Scheduled Provider: Location:.OCCUPATIONAL Appointment Type:OT 60 (FT) Appointment Date:12/02/2023 10:15:00 AM Scheduled Provider:Camilo Deras DO Location[facility] Appointment Type:Pain Management - Office Injection (FT) Appointment Date:12/03/2023 08:30:00 AM Scheduled Provider: [place] Appointment Type:PT 60 (FT) Appointment Date:12/03/2023 09:30:00 AM Scheduled Provider: Location:.OCCUPATIONAL Appointment Type:OT 60 (FT) Appointment Date:12/04/2023 02:30:00 PM Scheduled Provider:Lakia Mcdonnell [facility] Appointment Type:URO Office Visit Appointment Date:12/05/2023 12:15:00 PM Scheduled Provider: Location:.OCCUPATIONAL Appointment Type:OT 60 (FT) Appointment Date:12/05/2023 01:45:00 PM Scheduled Provider: [place] Appointment Type:PT 60 (FT) Appointment Date:12/11/2023 09:00:00 AM Scheduled Provider: [place] Appointment Type:PT 60 (FT) Appointment Date:12/11/2023 10:00:00 AM Scheduled Provider: Location:.OCCUPATIONAL Appointment Type:OT 60 (FT) Appointment Date:12/13/2023 08:30:00 AM Scheduled Provider: Location:.OCCUPATIONAL Appointment Type:OT 60 (FT) Appointment Date:12/13/2023 09:30:00 AM Scheduled Provider: [place] Appointment Type:PT 60 (FT) Appointment Date:12/16/2023 08:45:00 AM Scheduled Provider: [place] Appointment Type:PT 60 (FT) Appointment Date:12/16/2023 09:45:00 AM Scheduled Provider: Location:FT.OCCUPATIONAL Appointment Type:OT 60 (FT) Appointment Date:12/19/2023 08:30:00 AM Scheduled Provider: [place] Appointment Type:PT 60 (FT) Appointment Date:12/19/2023 09:30:00 AM Scheduled Provider: Location:FT.OCCUPATIONAL Appointment Type:OT Re-Eval (FT) Appointment Date:12/23/2023 08:45:00 AM Scheduled Provider: [place] Appointment Type:PT 60 (FT) Appointment Date:12/23/2023 09:45:00 AM Scheduled Provider: Location:FT.OCCUPATIONAL Appointment Type:OT 60 (FT) Appointment Date:12/26/2023 08:30:00 AM Scheduled Provider: [place] Appointment Type:PT Re-Eval 60 (FT) Appointment Date:12/26/2023 09:30:00 AM Scheduled Provider: Location:.OCCUPATIONAL Appointment Type:OT 60 (FT) Appointment Date:12/30/2023 08:45:00 AM Scheduled Provider: [place] Appointment Type:PT 60 (FT) Appointment Date:12/30/2023 09:45:00 AM Scheduled Provider: Location:.OCCUPATIONAL Appointment Type:OT 60 (FT) Appointment Date:01/02/2024 08:30:00 AM Scheduled Provider: [place] Appointment Type:PT 60 (FT) Appointment Date:01/02/2024 09:30:00 AM Scheduled Provider: Location:.OCCUPATIONAL Appointment Type:OT 60 (FT) Appointment Date:01/06/2024 08:45:00 AM Scheduled Provider: [place] Appointment Type:PT 60 (FT) Appointment Date:01/06/2024 09:45:00 AM Scheduled Provider: Location:.OCCUPATIONAL Appointment Type:OT 60 (FT) Appointment Date:01/09/2024 08:30:00 AM Scheduled Provider: [place] Appointment Type:PT 60 (FT) Appointment Date:01/09/2024 09:30:00 AM Scheduled Provider: Location:.OCCUPATIONAL Appointment Type:OT 60 (FT) Appointment Date:01/13/2024 08:45:00 AM Scheduled Provider: [place] Appointment Type:PT 60 (FT) Appointment Date:01/13/2024 09:45:00 AM Scheduled Provider: Location:FT.OCCUPATIONAL Appointment Type:OT 60 (FT) Appointment Date:01/15/2024 08:45:00 AM Scheduled Provider: Location[place] Appointment Type:PT 60 (FT) Appointment Date:01/15/2024 10:00:00 AM Scheduled Provider: Location:FT.OCCUPATIONAL Appointment Type:OT Re-Eval (FT) Appointment Date:01/20/2024 08:45:00 AM Scheduled Provider: [place] Appointment Type:PT 60 (FT) Appointment Date:01/20/2024 09:45:00 AM Scheduled Provider: Location:FT.OCCUPATIONAL Appointment Type:OT 60 (FT) Appointment Date:01/23/2024 08:30:00 AM Scheduled Provider: Location[place] Appointment Type:PT Re-Eval 60 (FT) Appointment Date:01/23/2024 09:30:00 AM Scheduled Provider: Location:FT.OCCUPATIONAL Appointment Type:OT 60 (FT) Appointment Date:01/29/2024 09:00:00 AM Scheduled Provider: Location[place] Appointment Type:PT 60 (FT) Appointment Date:01/29/2024 10:00:00 AM Scheduled Provider: Location:FT.OCCUPATIONAL Appointment Type:OT 60 (FT) Appointment Date:01/31/2024 08:30:00 AM Scheduled Provider: Location:.OCCUPATIONAL Appointment Type:OT 60 (FT) Appointment Date:01/31/2024 09:45:00 AM Scheduled Provider: [place] Appointment Type:PT 60 (FT) Appointment Date:02/03/2024 08:45:00 AM Scheduled Provider: Location:[place] Appointment Type:PT 60 (FT) Appointment Date:02/03/2024 10:00:00 AM Scheduled Provider: Location:FT.OCCUPATIONAL Appointment Type:OT 60 (FT) Appointment Date:02/06/2024 08:30:00 AM Scheduled Provider: Location:[place] Appointment Type:PT 60 (FT) Appointment Date:02/06/2024 09:30:00 AM Scheduled Provider: Location:.OCCUPATIONAL Appointment Type:OT 60 (FT) Appointment Date:02/10/2024 08:45:00 AM Scheduled Provider: Location:[place] Appointment Type:PT 60 (FT) Appointment Date:02/10/2024 10:00:00 AM Scheduled Provider: Location:FT.OCCUPATIONAL Appointment Type:OT 60 (FT) Appointment Date:02/13/2024 08:30:00 AM Scheduled Provider: Location:[place] Appointment Type:PT 60 (FT) Appointment Date:02/13/2024 10:00:00 AM Scheduled Provider: Location:FT.OCCUPATIONAL Appointment Type:OT Re-Eval (FT) Appointment Date:02/17/2024 08:45:00 AM Scheduled Provider: Location:[place] Appointment Type:PT Re-Eval 60 (FT) Appointment Date:02/17/2024 10:00:00 AM Scheduled Provider: Location:FT.OCCUPATIONAL Appointment Type:OT 60 (FT) [facility] Evaluation + Plan note Future Appointments Appointment Date:01/23/2024 08:30:00 AM Scheduled Provider: [place] Appointment Type:PT Re-Eval 60 (FT) Appointment Date:01/23/2024 09:30:00 AM Scheduled Provider: Location:FT.OCCUPATIONAL Appointment Type:OT 60 (FT) Appointment Date:02/03/2024 08:45:00 AM Scheduled Provider: [place] Appointment Type:PT 60 (FT) Appointment Date:02/03/2024 10:00:00 AM Scheduled Provider: Location:FT.OCCUPATIONAL Appointment Type:OT 60 (FT) Appointment Date:02/06/2024 08:30:00 AM Scheduled Provider: Location:[place] Appointment Type:PT 60 (FT) Appointment Date:02/06/2024 09:30:00 AM Scheduled Provider: Location:FT.OCCUPATIONAL Appointment Type:OT 60 (FT) Appointment Date:02/10/2024 08:45:00 AM Scheduled Provider: [place] Appointment Type:PT 60 (FT) Appointment Date:02/10/2024 10:00:00 AM Scheduled Provider: Location:FT.OCCUPATIONAL Appointment Type:OT 60 (FT) Appointment Date:02/10/2024 11:30:00 AM Scheduled Provider: [facility] Appointment Type:URO Nurse Visit Appointment Date:02/13/2024 08:30:00 AM Scheduled Provider: [place] Appointment Type:PT 60 (FT) Appointment Date:02/13/2024 10:00:00 AM Scheduled Provider: Location:.OCCUPATIONAL Appointment Type:OT Re-Eval (FT) Appointment Date:02/17/2024 08:45:00 AM Scheduled Provider: [place] Appointment Type:PT Re-Eval 60 (FT) Appointment Date:02/17/2024 10:00:00 AM Scheduled Provider: Location:FT.OCCUPATIONAL Appointment Type:OT 60 (FT) Appointment Date:02/20/2024 09:00:00 AM Scheduled Provider: Location:FT.OCCUPATIONAL Appointment Type:OT 60 (FT) Appointment Date:02/20/2024 10:00:00 AM Scheduled Provider: [place] Appointment Type:PT 60 (FT) Appointment Date:02/24/2024 08:45:00 AM Scheduled Provider: [place] Appointment Type:PT 60 (FT) Appointment Date:02/24/2024 09:45:00 AM Scheduled Provider: Location:FT.OCCUPATIONAL Appointment Type:OT 60 (FT) Appointment Date:02/27/2024 08:30:00 AM Scheduled Provider: [place] Appointment Type:PT 60 (FT) Appointment Date:02/27/2024 09:30:00 AM Scheduled Provider: Location:.OCCUPATIONAL Appointment Type:OT 60 (FT) Appointment Date:03/02/2024 08:45:00 AM Scheduled Provider: [place] Appointment Type:PT 60 (FT) Appointment Date:03/02/2024 09:45:00 AM Scheduled Provider: Location:.OCCUPATIONAL Appointment Type:OT 60 (FT) Appointment Date:03/03/2024 10:20:00 AM Scheduled Provider:ADRIAN Sweet APRN, [facility] [place] Location[facility] Appointment Type:URO Office Visit Appointment Date:03/05/2024 08:30:00 AM Scheduled Provider: [place] Appointment Type:PT 60 (FT) Appointment Date:03/05/2024 09:30:00 AM Scheduled Provider: Location:.OCCUPATIONAL Appointment Type:OT 60 (FT) Appointment Date:03/09/2024 08:45:00 AM Scheduled Provider: Location:FT[place] Appointment Type:PT 60 (FT) Appointment Date:03/09/2024 09:45:00 AM Scheduled Provider: Location:FT.OCCUPATIONAL Appointment Type:OT 60 (FT) Appointment Date:03/12/2024 08:45:00 AM Scheduled Provider: Location:FT[place] Appointment Type:PT 60 (FT) Appointment Date:03/12/2024 10:00:00 AM Scheduled Provider: Location:FT.OCCUPATIONAL Appointment Type:OT Re-Eval (FT) Appointment Date:03/16/2024 08:45:00 AM Scheduled Provider: Location:[place] Appointment Type:PT 60 (FT) Appointment Date:03/16/2024 09:45:00 AM Scheduled Provider: Location:FT.OCCUPATIONAL Appointment Type:OT 60 (FT) Appointment Date:03/19/2024 09:00:00 AM Scheduled Provider: Location:FT[place] Appointment Type:PT Re-Eval 60 (FT) Appointment Date:03/19/2024 10:00:00 AM Scheduled Provider: Location:FT.OCCUPATIONAL Appointment Type:OT 60 (FT) Appointment Date:03/23/2024 08:45:00 AM Scheduled Provider: [place] Appointment Type:PT 60 (FT) Appointment Date:03/23/2024 09:45:00 AM Scheduled Provider: Location:FT.OCCUPATIONAL Appointment Type:OT 60 (FT) Appointment Date:03/24/2024 10:20:00 AM Scheduled Provider:ADRIAN Sweet APRN, [place] [facility] Appointment Type:URO Office Visit Appointment Date:04/14/2024 10:20:00 AM Scheduled Provider:ADRIAN Sweet APRN [place] [facility] Appointment Type:URO Office Visit Appointment Date:05/05/2024 10:20:00 AM Scheduled Provider:ADRIAN Sweet APRN, [place] [facility] Appointment Type:URO Office Visit [facility] Evaluation + Plan note Future Appointments Appointment Date:11/06/2023 08:45:00 AM Scheduled Provider: Location:FT[place] Appointment Type:PT 60 (FT) Appointment Date:11/06/2023 10:00:00 AM Scheduled Provider: Location:.OCCUPATIONAL Appointment Type:OT 60 (FT) Appointment Date:11/08/2023 08:30:00 AM Scheduled Provider: Location:FT.OCCUPATIONAL Appointment Type:OT 60 (FT) Appointment Date:11/08/2023 09:30:00 AM Scheduled Provider: [place] Appointment Type:PT 60 (FT) Appointment Date:11/11/2023 08:45:00 AM Scheduled Provider: [place] Appointment Type:PT 60 (FT) Appointment Date:11/13/2023 11:00:00 AM Scheduled Provider:Lakia Mcdonnell Location[facility] Appointment Type:URO Office Visit Appointment Date:11/14/2023 09:30:00 AM Scheduled Provider: [place] Appointment Type:PT 60 (FT) Appointment Date:11/14/2023 10:30:00 AM Scheduled Provider: Location:FT.OCCUPATIONAL Appointment Type:OT 60 (FT) Appointment Date:11/18/2023 08:30:00 AM Scheduled Provider: Location:FT.OCCUPATIONAL Appointment Type:OT 60 (FT) Appointment Date:11/18/2023 09:45:00 AM Scheduled Provider: [place] Appointment Type:PT 60 (FT) Appointment Date:11/21/2023 08:30:00 AM Scheduled Provider: [place] Appointment Type:PT 60 (FT) Appointment Date:11/21/2023 09:30:00 AM Scheduled Provider: Location:FT.OCCUPATIONAL Appointment Type:OT Re-Eval (FT) Appointment Date:11/25/2023 08:45:00 AM Scheduled Provider: [place]:FT[facility] Appointment Type:PT 60 (FT) Appointment Date:11/25/2023 09:45:00 AM Scheduled Provider: Location:FT.OCCUPATIONAL Appointment Type:OT 60 (FT) Appointment Date:11/28/2023 08:30:00 AM Scheduled Provider: Location:FT[place] Appointment Type:PT Re-Eval 60 (FT) Appointment Date:11/28/2023 09:30:00 AM Scheduled Provider: Location:FT.OCCUPATIONAL Appointment Type:OT 60 (FT) Appointment Date:12/02/2023 10:15:00 AM Scheduled Provider:Camilo Deras DO Location[facility] Appointment Type:Pain Management - Office Injection (FT) Appointment Date:12/03/2023 08:30:00 AM Scheduled Provider: [place] Appointment Type:PT 60 (FT) Appointment Date:12/03/2023 09:30:00 AM Scheduled Provider: Location:.OCCUPATIONAL Appointment Type:OT 60 (FT) Appointment Date:12/04/2023 02:30:00 PM Scheduled Provider:Lakia Mcdonnell Location:[facility] Appointment Type:URO Office Visit Appointment Date:12/05/2023 12:15:00 PM Scheduled Provider: Location:.OCCUPATIONAL Appointment Type:OT 60 (FT) Appointment Date:12/05/2023 01:45:00 PM Scheduled Provider: [place] Appointment Type:PT 60 (FT) Appointment Date:12/11/2023 09:00:00 AM Scheduled Provider: [place] Appointment Type:PT 60 (FT) Appointment Date:12/11/2023 10:00:00 AM Scheduled Provider: Location:.OCCUPATIONAL Appointment Type:OT 60 (FT) Appointment Date:12/13/2023 08:30:00 AM Scheduled Provider: Location:FT.OCCUPATIONAL Appointment Type:OT 60 (FT) Appointment Date:12/13/2023 09:30:00 AM Scheduled Provider: [place] Appointment Type:PT 60 (FT) Appointment Date:12/16/2023 08:45:00 AM Scheduled Provider: [place] Appointment Type:PT 60 (FT) Appointment Date:12/16/2023 09:45:00 AM Scheduled Provider: Location:.OCCUPATIONAL Appointment Type:OT 60 (FT) Appointment Date:12/19/2023 08:30:00 AM Scheduled Provider: [place] Appointment Type:PT 60 (FT) Appointment Date:12/19/2023 09:30:00 AM Scheduled Provider: Location:.OCCUPATIONAL Appointment Type:OT Re-Eval (FT) Appointment Date:12/23/2023 08:45:00 AM Scheduled Provider: [place] Appointment Type:PT 60 (FT) Appointment Date:12/23/2023 09:45:00 AM Scheduled Provider: Location:FT.OCCUPATIONAL Appointment Type:OT 60 (FT) Appointment Date:12/26/2023 08:30:00 AM Scheduled Provider: Location:FT[facility] Appointment Type:PT Re-Eval 60 (FT) Appointment Date:12/26/2023 09:30:00 AM Scheduled Provider: Location:.OCCUPATIONAL Appointment Type:OT 60 (FT) Appointment Date:12/30/2023 08:45:00 AM Scheduled Provider: Location:FT[facility] Appointment Type:PT 60 (FT) Appointment Date:12/30/2023 09:45:00 AM Scheduled Provider: Location:FT.OCCUPATIONAL Appointment Type:OT 60 (FT) Appointment Date:01/02/2024 08:30:00 AM Scheduled Provider: [place] Appointment Type:PT 60 (FT) Appointment Date:01/02/2024 09:30:00 AM Scheduled Provider: Location:FT.OCCUPATIONAL Appointment Type:OT 60 (FT) Appointment Date:01/06/2024 08:45:00 AM Scheduled Provider: [place] Appointment Type:PT 60 (FT) Appointment Date:01/06/2024 09:45:00 AM Scheduled Provider: Location:.OCCUPATIONAL Appointment Type:OT 60 (FT) Appointment Date:01/09/2024 08:30:00 AM Scheduled Provider: [place] Appointment Type:PT 60 (FT) Appointment Date:01/09/2024 09:30:00 AM Scheduled Provider: Location:FT.OCCUPATIONAL Appointment Type:OT 60 (FT) Appointment Date:01/13/2024 08:45:00 AM Scheduled Provider: [place] Appointment Type:PT 60 (FT) Appointment Date:01/13/2024 09:45:00 AM Scheduled Provider: Location:.OCCUPATIONAL Appointment Type:OT 60 (FT) Appointment Date:01/15/2024 08:45:00 AM Scheduled Provider: [place] Appointment Type:PT 60 (FT) Appointment Date:01/15/2024 10:00:00 AM Scheduled Provider: Location:.OCCUPATIONAL Appointment Type:OT Re-Eval (FT) Appointment Date:01/20/2024 08:45:00 AM Scheduled Provider: [place] Appointment Type:PT 60 (FT) Appointment Date:01/20/2024 09:45:00 AM Scheduled Provider: Location:FT.OCCUPATIONAL Appointment Type:OT 60 (FT) Appointment Date:01/23/2024 08:30:00 AM Scheduled Provider: Location:[facility] Appointment Type:PT Re-Eval 60 (FT) Appointment Date:01/23/2024 09:30:00 AM Scheduled Provider: Location:FT.OCCUPATIONAL Appointment Type:OT 60 (FT) Appointment Date:01/29/2024 09:00:00 AM Scheduled Provider: Location:FT[facility] Appointment Type:PT 60 (FT) Appointment Date:01/29/2024 10:00:00 AM Scheduled Provider: Location:FT.OCCUPATIONAL Appointment Type:OT 60 (FT) Appointment Date:01/31/2024 08:30:00 AM Scheduled Provider: Location:FT.OCCUPATIONAL Appointment Type:OT 60 (FT) Appointment Date:01/31/2024 09:45:00 AM Scheduled Provider: Location:FT[facility] Appointment Type:PT 60 (FT) Appointment Date:02/03/2024 08:45:00 AM Scheduled Provider: Location:FT[facility] [place] Appointment Type:PT 60 (FT) Appointment Date:02/03/2024 10:00:00 AM Scheduled Provider: Location:FT.OCCUPATIONAL Appointment Type:OT 60 (FT) Appointment Date:02/06/2024 08:30:00 AM Scheduled Provider: Location:FT[facility] Appointment Type:PT 60 (FT) Appointment Date:02/06/2024 09:30:00 AM Scheduled Provider: Location:FT.OCCUPATIONAL Appointment Type:OT 60 (FT) Appointment Date:02/10/2024 08:45:00 AM Scheduled Provider: Location:FT[facility] Appointment Type:PT 60 (FT) Appointment Date:02/10/2024 10:00:00 AM Scheduled Provider: Location:FT.OCCUPATIONAL Appointment Type:OT 60 (FT) Appointment Date:02/13/2024 08:30:00 AM Scheduled Provider: Location:[facility] Appointment Type:PT 60 (FT) Appointment Date:02/13/2024 10:00:00 AM Scheduled Provider: Location:FT.OCCUPATIONAL Appointment Type:OT Re-Eval (FT) Appointment Date:02/17/2024 08:45:00 AM Scheduled Provider: Location:[facility] Appointment Type:PT Re-Eval 60 (FT) Appointment Date:02/17/2024 10:00:00 AM Scheduled Provider: Location:.OCCUPATIONAL Appointment Type:OT 60 (FT) [facility] Evaluation + Plan note Future Appointments Appointment Date:02/13/2024 08:30:00 AM Scheduled Provider: [place] Appointment Type:PT 60 (FT) Appointment Date:02/13/2024 10:00:00 AM Scheduled Provider: Location:.OCCUPATIONAL Appointment Type:OT Re-Eval (FT) Appointment Date:02/17/2024 08:45:00 AM Scheduled Provider: [place] Appointment Type:PT Re-Eval 60 (FT) Appointment Date:02/17/2024 10:00:00 AM Scheduled Provider: Location:FT.OCCUPATIONAL Appointment Type:OT 60 (FT) Appointment Date:02/20/2024 09:00:00 AM Scheduled Provider: Location:FT.OCCUPATIONAL Appointment Type:OT 60 (FT) Appointment Date:02/20/2024 10:00:00 AM Scheduled Provider: [place] Appointment Type:PT 60 (FT) Appointment Date:02/24/2024 08:45:00 AM Scheduled Provider: [place] Appointment Type:PT 60 (FT) Appointment Date:02/24/2024 09:45:00 AM Scheduled Provider: Location:.OCCUPATIONAL Appointment Type:OT 60 (FT) Appointment Date:02/27/2024 08:30:00 AM Scheduled Provider: [place] Appointment Type:PT 60 (FT) Appointment Date:02/27/2024 09:30:00 AM Scheduled Provider: Location:.OCCUPATIONAL Appointment Type:OT 60 (FT) Appointment Date:03/02/2024 08:45:00 AM Scheduled Provider: [place] Appointment Type:PT 60 (FT) Appointment Date:03/02/2024 09:45:00 AM Scheduled Provider: Location:.OCCUPATIONAL Appointment Type:OT 60 (FT) Appointment Date:03/03/2024 10:20:00 AM Scheduled Provider:ADRIAN Sweet APRN, [place] [facility] Appointment Type:URO Office Visit Appointment Date:03/05/2024 08:30:00 AM Scheduled Provider: [place] Appointment Type:PT 60 (FT) Appointment Date:03/05/2024 09:30:00 AM Scheduled Provider: Location:FT.OCCUPATIONAL Appointment Type:OT 60 (FT) Appointment Date:03/09/2024 08:45:00 AM Scheduled Provider: [place] Appointment Type:PT 60 (FT) Appointment Date:03/09/2024 09:45:00 AM Scheduled Provider: Location:FT.OCCUPATIONAL Appointment Type:OT 60 (FT) Appointment Date:03/12/2024 08:45:00 AM Scheduled Provider: [place] Appointment Type:PT 60 (FT) Appointment Date:03/12/2024 10:00:00 AM Scheduled Provider: Location:FT.OCCUPATIONAL Appointment Type:OT Re-Eval (FT) Appointment Date:03/16/2024 08:45:00 AM Scheduled Provider: Location:[facility] [place] Appointment Type:PT 60 (FT) Appointment Date:03/16/2024 09:45:00 AM Scheduled Provider: Location:FT.OCCUPATIONAL Appointment Type:OT 60 (FT) Appointment Date:03/19/2024 09:00:00 AM Scheduled Provider: Location:[facility] [place] Appointment Type:PT Re-Eval 60 (FT) Appointment Date:03/19/2024 10:00:00 AM Scheduled Provider: Location:FT.OCCUPATIONAL Appointment Type:OT 60 (FT) Appointment Date:03/23/2024 08:45:00 AM Scheduled Provider: Location:[facility] [place] Appointment Type:PT 60 (FT) Appointment Date:03/23/2024 09:45:00 AM Scheduled Provider: Location:.OCCUPATIONAL Appointment Type:OT 60 (FT) Appointment Date:03/24/2024 10:20:00 AM Scheduled Provider:ADRIAN Sweet APRN, [place] Location[facility] Appointment Type:URO Office Visit Appointment Date:03/26/2024 08:15:00 AM Scheduled Provider: Location:.OCCUPATIONAL Appointment Type:OT 60 (FT) Appointment Date:03/26/2024 09:15:00 AM Scheduled Provider: [place] Appointment Type:PT 60 (FT) Appointment Date:03/30/2024 08:45:00 AM Scheduled Provider: Location[place] Appointment Type:PT 60 (FT) Appointment Date:03/30/2024 09:45:00 AM Scheduled Provider: Location:FT.OCCUPATIONAL Appointment Type:OT 60 (FT) Appointment Date:04/02/2024 08:30:00 AM Scheduled Provider: Location[place] Appointment Type:PT 60 (FT) Appointment Date:04/02/2024 09:30:00 AM Scheduled Provider: Location:FT.OCCUPATIONAL Appointment Type:OT 60 (FT) Appointment Date:04/06/2024 08:45:00 AM Scheduled Provider: Location[place] Appointment Type:PT 60 (FT) Appointment Date:04/06/2024 09:45:00 AM Scheduled Provider: Location:FT.OCCUPATIONAL Appointment Type:OT 60 (FT) Appointment Date:04/09/2024 08:30:00 AM Scheduled Provider: Location:[place] Appointment Type:PT 60 (FT) Appointment Date:04/09/2024 09:30:00 AM Scheduled Provider: Location:FT.OCCUPATIONAL Appointment Type:OT Re-Eval (FT) Appointment Date:04/13/2024 08:45:00 AM Scheduled Provider: [place] Appointment Type:PT 60 (FT) Appointment Date:04/13/2024 09:45:00 AM Scheduled Provider: Location:FT.OCCUPATIONAL Appointment Type:OT 60 (FT) Appointment Date:04/14/2024 10:20:00 AM Scheduled Provider:ADRIAN Sweet APRN, [place] [facility] Appointment Type:URO Office Visit Appointment Date:04/16/2024 08:15:00 AM Scheduled Provider: Location:.OCCUPATIONAL Appointment Type:OT 60 (FT) Appointment Date:04/16/2024 09:15:00 AM Scheduled Provider: Location[place] Appointment Type:PT Re-Eval 60 (FT) Appointment Date:04/20/2024 08:30:00 AM Scheduled Provider: [place] Appointment Type:PT 60 (FT) Appointment Date:04/20/2024 09:30:00 AM Scheduled Provider: Location:FT.OCCUPATIONAL Appointment Type:OT 60 (FT) Appointment Date:04/23/2024 08:15:00 AM Scheduled Provider: Location:.OCCUPATIONAL Appointment Type:OT 60 (FT) Appointment Date:04/23/2024 09:15:00 AM Scheduled Provider: [place] Appointment Type:PT 60 (FT) Appointment Date:04/27/2024 08:30:00 AM Scheduled Provider: [place] Appointment Type:PT 60 (FT) Appointment Date:04/27/2024 09:30:00 AM Scheduled Provider: Location:FT.OCCUPATIONAL Appointment Type:OT 60 (FT) Appointment Date:04/30/2024 08:15:00 AM Scheduled Provider: Location:.OCCUPATIONAL Appointment Type:OT 60 (FT) Appointment Date:04/30/2024 09:15:00 AM Scheduled Provider: [place] Appointment Type:PT 60 (FT) Appointment Date:05/04/2024 08:30:00 AM Scheduled Provider: [place] Appointment Type:PT 60 (FT) Appointment Date:05/04/2024 09:30:00 AM Scheduled Provider: Location:.OCCUPATIONAL Appointment Type:OT 60 (FT) Appointment Date:05/05/2024 10:20:00 AM Scheduled Provider:ADRIAN Sweet APRN, [place] [facility] Appointment Type:URO Office Visit Appointment Date:05/07/2024 08:30:00 AM Scheduled Provider: [place] Appointment Type:PT 60 (FT) Appointment Date:05/07/2024 09:30:00 AM Scheduled Provider: Location:.OCCUPATIONAL Appointment Type:OT Re-Eval (FT) Appointment Date:05/11/2024 08:45:00 AM Scheduled Provider: [place] Appointment Type:PT 60 (FT) Appointment Date:05/11/2024 09:45:00 AM Scheduled Provider: Location:.OCCUPATIONAL Appointment Type:OT 60 (FT) Appointment Date:05/14/2024 09:00:00 AM Scheduled Provider: [place] Appointment Type:PT Re-Eval 60 (FT) Appointment Date:05/14/2024 10:00:00 AM Scheduled Provider: Location:.OCCUPATIONAL Appointment Type:OT 60 (FT) Appointment Date:05/18/2024 08:30:00 AM Scheduled Provider: Location:.OCCUPATIONAL Appointment Type:OT Re-Eval (FT) [facility] [place] Evaluation + Plan note Future Appointments Appointment Date:03/05/2024 08:30:00 AM Scheduled Provider: [place] Appointment Type:PT 60 (FT) Appointment Date:03/05/2024 09:30:00 AM Scheduled Provider: Location:FT.OCCUPATIONAL Appointment Type:OT 60 (FT) Appointment Date:03/09/2024 08:45:00 AM Scheduled Provider: [place] Appointment Type:PT 60 (FT) Appointment Date:03/09/2024 09:45:00 AM Scheduled Provider: Location:.OCCUPATIONAL Appointment Type:OT 60 (FT) Appointment Date:03/12/2024 08:45:00 AM Scheduled Provider: [place] Appointment Type:PT 60 (FT) Appointment Date:03/12/2024 10:00:00 AM Scheduled Provider: Location:.OCCUPATIONAL Appointment Type:OT Re-Eval (FT) Appointment Date:03/16/2024 08:45:00 AM Scheduled Provider: [place] Appointment Type:PT 60 (FT) Appointment Date:03/16/2024 09:45:00 AM Scheduled Provider: Location:.OCCUPATIONAL Appointment Type:OT 60 (FT) Appointment Date:03/19/2024 09:00:00 AM Scheduled Provider: [place] Appointment Type:PT Re-Eval 60 (FT) Appointment Date:03/19/2024 10:00:00 AM Scheduled Provider: Location:FT.OCCUPATIONAL Appointment Type:OT 60 (FT) Appointment Date:03/23/2024 08:45:00 AM Scheduled Provider: [place] Appointment Type:PT 60 (FT) Appointment Date:03/23/2024 09:45:00 AM Scheduled Provider: Location:.OCCUPATIONAL Appointment Type:OT 60 (FT) Appointment Date:03/24/2024 10:20:00 AM Scheduled Provider:ADRIAN Sweet APRN, [place] [facility] Appointment Type:URO Office Visit Appointment Date:03/24/2024 01:30:00 PM Scheduled Provider:Camilo Deras DO Location[facility] [place] Appointment Type:Pain Management - Office Injection (FT) Appointment Date:03/26/2024 08:15:00 AM Scheduled Provider: Location:.OCCUPATIONAL Appointment Type:OT 60 (FT) Appointment Date:03/26/2024 09:15:00 AM Scheduled Provider: [place] Appointment Type:PT 60 (FT) Appointment Date:03/30/2024 08:45:00 AM Scheduled Provider: Location:[place] Appointment Type:PT 60 (FT) Appointment Date:03/30/2024 09:45:00 AM Scheduled Provider: Location:FT.OCCUPATIONAL Appointment Type:OT 60 (FT) Appointment Date:04/02/2024 08:30:00 AM Scheduled Provider: [place] Appointment Type:PT 60 (FT) Appointment Date:04/02/2024 09:30:00 AM Scheduled Provider: Location:.OCCUPATIONAL Appointment Type:OT 60 (FT) Appointment Date:04/06/2024 08:45:00 AM Scheduled Provider: [place] Appointment Type:PT 60 (FT) Appointment Date:04/06/2024 09:45:00 AM Scheduled Provider: Location:.OCCUPATIONAL Appointment Type:OT 60 (FT) Appointment Date:04/09/2024 08:30:00 AM Scheduled Provider: [place] Appointment Type:PT 60 (FT) Appointment Date:04/09/2024 09:30:00 AM Scheduled Provider: Location:.OCCUPATIONAL Appointment Type:OT Re-Eval (FT) Appointment Date:04/13/2024 08:45:00 AM Scheduled Provider: [place] Appointment Type:PT 60 (FT) Appointment Date:04/13/2024 09:45:00 AM Scheduled Provider: Location:.OCCUPATIONAL Appointment Type:OT 60 (FT) Appointment Date:04/14/2024 10:20:00 AM Scheduled Provider:ADRIAN Sweet APRN, [place] Location:[facility] [place] Appointment Type:URO Office Visit Appointment Date:04/16/2024 08:15:00 AM Scheduled Provider: Location:.OCCUPATIONAL Appointment Type:OT 60 (FT) Appointment Date:04/16/2024 09:15:00 AM Scheduled Provider: [place] Appointment Type:PT Re-Eval 60 (FT) Appointment Date:04/20/2024 08:30:00 AM Scheduled Provider: Location[place] Appointment Type:PT 60 (FT) Appointment Date:04/20/2024 09:30:00 AM Scheduled Provider: Location:.OCCUPATIONAL Appointment Type:OT 60 (FT) Appointment Date:04/23/2024 08:15:00 AM Scheduled Provider: Location:FT.OCCUPATIONAL Appointment Type:OT 60 (FT) Appointment Date:04/23/2024 09:15:00 AM Scheduled Provider: [place] Appointment Type:PT 60 (FT) Appointment Date:04/27/2024 08:30:00 AM Scheduled Provider: [place] Appointment Type:PT 60 (FT) Appointment Date:04/27/2024 09:30:00 AM Scheduled Provider: Location:.OCCUPATIONAL Appointment Type:OT 60 (FT) Appointment Date:04/30/2024 08:15:00 AM Scheduled Provider: Location:FT.OCCUPATIONAL Appointment Type:OT 60 (FT) Appointment Date:04/30/2024 09:15:00 AM Scheduled Provider: [place] Appointment Type:PT 60 (FT) Appointment Date:05/04/2024 08:30:00 AM Scheduled Provider: [place] Appointment Type:PT 60 (FT) Appointment Date:05/04/2024 09:30:00 AM Scheduled Provider: Location:.OCCUPATIONAL Appointment Type:OT 60 (FT) Appointment Date:05/05/2024 10:20:00 AM Scheduled Provider:ADRIAN Sweet APRN, [place] [facility] Appointment Type:URO Office Visit Appointment Date:05/07/2024 08:30:00 AM Scheduled Provider: [place] Appointment Type:PT 60 (FT) Appointment Date:05/07/2024 09:30:00 AM Scheduled Provider: Location:.OCCUPATIONAL Appointment Type:OT Re-Eval (FT) Appointment Date:05/11/2024 08:45:00 AM Scheduled Provider: [place] Appointment Type:PT 60 (FT) Appointment Date:05/11/2024 09:45:00 AM Scheduled Provider: Location:FT.OCCUPATIONAL Appointment Type:OT 60 (FT) Appointment Date:05/14/2024 09:00:00 AM Scheduled Provider: Location:FT[place] Appointment Type:PT Re-Eval 60 (FT) Appointment Date:05/14/2024 10:00:00 AM Scheduled Provider: Location:FT.OCCUPATIONAL Appointment Type:OT 60 (FT) Appointment Date:05/18/2024 08:30:00 AM Scheduled Provider: Location:FT.OCCUPATIONAL Appointment Type:OT Re-Eval (FT) [facility] [place] Evaluation + Plan note Future Appointments Appointment Date:03/26/2024 08:15:00 AM Scheduled Provider: Location:FT.OCCUPATIONAL Appointment Type:OT 60 (FT) Appointment Date:03/26/2024 09:15:00 AM Scheduled Provider: Location:[place] Appointment Type:PT 60 (FT) Appointment Date:03/30/2024 08:45:00 AM Scheduled Provider: Location:FT[place] Appointment Type:PT 60 (FT) Appointment Date:03/30/2024 09:45:00 AM Scheduled Provider: Location:FT.OCCUPATIONAL Appointment Type:OT 60 (FT) Appointment Date:04/02/2024 08:30:00 AM Scheduled Provider: Location:FT[place] Appointment Type:PT 60 (FT) Appointment Date:04/02/2024 09:30:00 AM Scheduled Provider: Location:FT.OCCUPATIONAL Appointment Type:OT 60 (FT) Appointment Date:04/06/2024 08:45:00 AM Scheduled Provider: Location:FT.[place] Appointment Type:PT 60 (FT) Appointment Date:04/06/2024 09:45:00 AM Scheduled Provider: Location:FT.OCCUPATIONAL Appointment Type:OT 60 (FT) Appointment Date:04/09/2024 08:30:00 AM Scheduled Provider: Location:FT.[place] Appointment Type:PT 60 (FT) Appointment Date:04/09/2024 09:30:00 AM Scheduled Provider: Location:FT.OCCUPATIONAL Appointment Type:OT Re-Eval (FT) Appointment Date:04/13/2024 08:45:00 AM Scheduled Provider: Location:FT[place] Appointment Type:PT 60 (FT) Appointment Date:04/13/2024 09:45:00 AM Scheduled Provider: Location:FT.OCCUPATIONAL Appointment Type:OT 60 (FT) Appointment Date:04/14/2024 10:20:00 AM Scheduled Provider:ADRIAN Sweet APRN, [place] Location[facility] Appointment Type:URO Office Visit Appointment Date:04/16/2024 08:15:00 AM Scheduled Provider: Location:FT.OCCUPATIONAL Appointment Type:OT 60 (FT) Appointment Date:04/16/2024 09:15:00 AM Scheduled Provider: Location:FT[place] Appointment Type:PT Re-Eval 60 (FT) Appointment Date:04/20/2024 08:30:00 AM Scheduled Provider: Location:FT[place] Appointment Type:PT 60 (FT) Appointment Date:04/20/2024 09:30:00 AM Scheduled Provider: Location:FT.OCCUPATIONAL Appointment Type:OT 60 (FT) Appointment Date:04/23/2024 08:15:00 AM Scheduled Provider: Location:FT.OCCUPATIONAL Appointment Type:OT 60 (FT) Appointment Date:04/23/2024 09:15:00 AM Scheduled Provider: Location:FT.[place] Appointment Type:PT 60 (FT) Appointment Date:04/27/2024 08:30:00 AM Scheduled Provider: Location:[place] Appointment Type:PT 60 (FT) Appointment Date:04/27/2024 09:30:00 AM Scheduled Provider: Location:FT.OCCUPATIONAL Appointment Type:OT 60 (FT) Appointment Date:04/30/2024 08:15:00 AM Scheduled Provider: Location:FT.OCCUPATIONAL Appointment Type:OT 60 (FT) Appointment Date:04/30/2024 09:15:00 AM Scheduled Provider: Location:FT[place] Appointment Type:PT 60 (FT) Appointment Date:05/04/2024 08:30:00 AM Scheduled Provider: Location:FT[place] Appointment Type:PT 60 (FT) Appointment Date:05/04/2024 09:30:00 AM Scheduled Provider: Location:FT.OCCUPATIONAL Appointment Type:OT 60 (FT) Appointment Date:05/05/2024 10:20:00 AM Scheduled Provider:ADRIAN Sweet APRN, [place] Location[facility] Appointment Type:URO Office Visit Appointment Date:05/07/2024 08:30:00 AM Scheduled Provider: Location:FT.[place] Appointment Type:PT 60 (FT) Appointment Date:05/07/2024 09:30:00 AM Scheduled Provider: Location:FT.OCCUPATIONAL Appointment Type:OT Re-Eval (FT) Appointment Date:05/11/2024 08:45:00 AM Scheduled Provider: Location:FT[place] Appointment Type:PT 60 (FT) Appointment Date:05/11/2024 09:45:00 AM Scheduled Provider: Location:FT.OCCUPATIONAL Appointment Type:OT 60 (FT) Appointment Date:05/14/2024 09:00:00 AM Scheduled Provider: Location:FT[place] Appointment Type:PT Re-Eval 60 (FT) Appointment Date:05/14/2024 10:00:00 AM Scheduled Provider: Location:FT.OCCUPATIONAL Appointment Type:OT 60 (FT) Appointment Date:05/18/2024 08:30:00 AM Scheduled Provider: Location:FT.OCCUPATIONAL Appointment Type:OT Re-Eval (FT) Diagnostic Tests Pending * Urine Culture 03/24/24 [facility] Evaluation + Plan note Future Appointments Appointment Date:03/26/2024 08:15:00 AM Scheduled Provider: Location:FT.OCCUPATIONAL Appointment Type:OT 60 (FT) Appointment Date:03/26/2024 09:15:00 AM Scheduled Provider: Location:FT.[place] Appointment Type:PT 60 (FT) Appointment Date:03/30/2024 08:45:00 AM Scheduled Provider: Location:FT[place] Appointment Type:PT 60 (FT) Appointment Date:03/30/2024 09:45:00 AM Scheduled Provider: Location:FT.OCCUPATIONAL Appointment Type:OT 60 (FT) Appointment Date:04/02/2024 08:30:00 AM Scheduled Provider: Location:FT[place] Appointment Type:PT 60 (FT) Appointment Date:04/02/2024 09:30:00 AM Scheduled Provider: Location:FT.OCCUPATIONAL Appointment Type:OT 60 (FT) Appointment Date:04/06/2024 08:45:00 AM Scheduled Provider: Location:FT.[place] Appointment Type:PT 60 (FT) Appointment Date:04/06/2024 09:45:00 AM Scheduled Provider: Location:FT.OCCUPATIONAL Appointment Type:OT 60 (FT) Appointment Date:04/09/2024 08:30:00 AM Scheduled Provider: Location:FT[place] Appointment Type:PT 60 (FT) Appointment Date:04/09/2024 09:30:00 AM Scheduled Provider: Location:FT.OCCUPATIONAL Appointment Type:OT Re-Eval (FT) Appointment Date:04/13/2024 08:45:00 AM Scheduled Provider: Location:FT.[place] Appointment Type:PT 60 (FT) Appointment Date:04/13/2024 09:45:00 AM Scheduled Provider: Location:FT.OCCUPATIONAL Appointment Type:OT 60 (FT) Appointment Date:04/14/2024 10:20:00 AM Scheduled Provider:ADRIAN Sweet APRN, [place] Location[facility] Appointment Type:URO Office Visit Appointment Date:04/16/2024 08:15:00 AM Scheduled Provider: Location:.OCCUPATIONAL Appointment Type:OT 60 (FT) Appointment Date:04/16/2024 09:15:00 AM Scheduled Provider: [place] Appointment Type:PT Re-Eval 60 (FT) Appointment Date:04/20/2024 08:30:00 AM Scheduled Provider: [place] Appointment Type:PT 60 (FT) Appointment Date:04/20/2024 09:30:00 AM Scheduled Provider: Location:.OCCUPATIONAL Appointment Type:OT 60 (FT) Appointment Date:04/23/2024 08:15:00 AM Scheduled Provider: Location:.OCCUPATIONAL Appointment Type:OT 60 (FT) Appointment Date:04/23/2024 09:15:00 AM Scheduled Provider: Location:FT[place] Appointment Type:PT 60 (FT) Appointment Date:04/27/2024 08:30:00 AM Scheduled Provider: [place] Appointment Type:PT 60 (FT) Appointment Date:04/27/2024 09:30:00 AM Scheduled Provider: Location:FT.OCCUPATIONAL Appointment Type:OT 60 (FT) Appointment Date:04/30/2024 08:15:00 AM Scheduled Provider: Location:FT.OCCUPATIONAL Appointment Type:OT 60 (FT) Appointment Date:04/30/2024 09:15:00 AM Scheduled Provider: Location:FT[place] Appointment Type:PT 60 (FT) Appointment Date:05/04/2024 08:30:00 AM Scheduled Provider: [place] Appointment Type:PT 60 (FT) Appointment Date:05/04/2024 09:30:00 AM Scheduled Provider: Location:FT.OCCUPATIONAL Appointment Type:OT 60 (FT) Appointment Date:05/05/2024 10:20:00 AM Scheduled Provider:ADRIAN Sweet APRN, [place] [facility] Appointment Type:URO Office Visit Appointment Date:05/07/2024 08:30:00 AM Scheduled Provider: [place] Appointment Type:PT 60 (FT) Appointment Date:05/07/2024 09:30:00 AM Scheduled Provider: Location:FT.OCCUPATIONAL Appointment Type:OT Re-Eval (FT) Appointment Date:05/11/2024 08:45:00 AM Scheduled Provider: [place] Appointment Type:PT 60 (FT) Appointment Date:05/11/2024 09:45:00 AM Scheduled Provider: Location:FT.OCCUPATIONAL Appointment Type:OT 60 (FT) Appointment Date:05/14/2024 09:00:00 AM Scheduled Provider: [place] Appointment Type:PT Re-Eval 60 (FT) Appointment Date:05/14/2024 10:00:00 AM Scheduled Provider: Location:.OCCUPATIONAL Appointment Type:OT 60 (FT) Appointment Date:05/18/2024 08:30:00 AM Scheduled Provider: Location:.OCCUPATIONAL Appointment Type:OT Re-Eval (FT) [facility] Evaluation + Plan note Future Appointments Appointment Date:05/29/2024 08:30:00 AM Scheduled Provider: Location:FT.OCCUPATIONAL Appointment Type:OT 60 (FT) Appointment Date:05/29/2024 09:45:00 AM Scheduled Provider: [place] Appointment Type:PT 60 (FT) Appointment Date:06/01/2024 08:00:00 AM Scheduled Provider: [place] Appointment Type:PT 60 (FT) Appointment Date:06/01/2024 09:00:00 AM Scheduled Provider: Location:FT.OCCUPATIONAL Appointment Type:OT 60 (FT) Appointment Date:06/04/2024 09:00:00 AM Scheduled Provider: Location:FT.OCCUPATIONAL Appointment Type:OT Re-Eval (FT) Appointment Date:06/04/2024 10:00:00 AM Scheduled Provider: Location[place] Appointment Type:PT 60 (FT) Appointment Date:06/04/2024 11:30:00 AM Scheduled Provider: Location:FT.M[facility]MO[facility] Appointment Type:MA Screen (FT) Appointment Date:06/08/2024 08:00:00 AM Scheduled Provider: Location[place] Appointment Type:PT 60 (FT) Appointment Date:06/08/2024 09:00:00 AM Scheduled Provider: Location:FT.OCCUPATIONAL Appointment Type:OT 60 (FT) Appointment Date:06/11/2024 08:15:00 AM Scheduled Provider: Location:FT.OCCUPATIONAL Appointment Type:OT 60 (FT) Appointment Date:06/11/2024 09:15:00 AM Scheduled Provider: [place] Appointment Type:PT Re-Eval 60 (FT) Appointment Date:06/16/2024 08:15:00 AM Scheduled Provider: Location:FT.OCCUPATIONAL Appointment Type:OT 60 (FT) Appointment Date:06/16/2024 09:15:00 AM Scheduled Provider: [place] Appointment Type:PT 60 (FT) Appointment Date:06/17/2024 10:40:00 AM Scheduled Provider:Lakia Mcdonnell Location[facility] Appointment Type:URO Office Visit Appointment Date:06/18/2024 08:15:00 AM Scheduled Provider: Location:FT.OCCUPATIONAL Appointment Type:OT 60 (FT) Appointment Date:06/18/2024 09:15:00 AM Scheduled Provider: [place] Appointment Type:PT 60 (FT) Appointment Date:06/18/2024 11:00:00 AM Scheduled Provider:Kina Lee PA-C Location[facility] Appointment Type:URO Office Visit Appointment Date:06/22/2024 08:45:00 AM Scheduled Provider: [place] Appointment Type:PT 60 (FT) Appointment Date:06/22/2024 09:45:00 AM Scheduled Provider: Location:FT.OCCUPATIONAL Appointment Type:OT 60 (FT) Appointment Date:06/25/2024 08:15:00 AM Scheduled Provider: Location:.OCCUPATIONAL Appointment Type:OT 60 (FT) Appointment Date:06/25/2024 09:15:00 AM Scheduled Provider: Location:FT[place] Appointment Type:PT 60 (FT) Appointment Date:06/29/2024 08:45:00 AM Scheduled Provider: Location:[place] Appointment Type:PT 60 (FT) Appointment Date:06/29/2024 09:45:00 AM Scheduled Provider: Location:FT.OCCUPATIONAL Appointment Type:OT 60 (FT) Appointment Date:07/02/2024 08:30:00 AM Scheduled Provider: [place] Appointment Type:PT 60 (FT) Appointment Date:07/02/2024 09:30:00 AM Scheduled Provider: Location:FT.OCCUPATIONAL Appointment Type:OT Re-Eval (FT) Appointment Date:07/02/2024 11:00:00 AM Scheduled Provider:Camilo Deras DO Location[facility] [place] Appointment Type:Pain Management - Office Injection (FT) Appointment Date:07/07/2024 12:45:00 PM Scheduled Provider: Location:.OCCUPATIONAL Appointment Type:OT 60 (FT) Appointment Date:07/07/2024 01:45:00 PM Scheduled Provider: [place] Appointment Type:PT 60 (FT) Appointment Date:07/08/2024 10:40:00 AM Scheduled Provider:Lakia Mcdonnell Location[facility] Appointment Type:URO Office Visit Appointment Date:07/09/2024 08:15:00 AM Scheduled Provider: Location:FT.OCCUPATIONAL Appointment Type:OT 60 (FT) Appointment Date:07/09/2024 09:15:00 AM Scheduled Provider: [place] Appointment Type:PT Re-Eval 60 (FT) Appointment Date:07/14/2024 08:15:00 AM Scheduled Provider: Location:FT.OCCUPATIONAL Appointment Type:OT 60 (FT) Appointment Date:07/14/2024 09:15:00 AM Scheduled Provider: Location[place] Appointment Type:PT 60 (FT) Appointment Date:07/16/2024 12:15:00 PM Scheduled Provider: Location:FT.OCCUPATIONAL Appointment Type:OT 60 (FT) Appointment Date:07/16/2024 01:45:00 PM Scheduled Provider: [place] Appointment Type:PT 60 (FT) Diagnostic Tests Pending * Urine Culture 05/28/24 Future Scheduled Tests Radiology* MA Mamm Screen w/CAD if perf and 3D David 06/04/24 [facility] Evaluation + Plan note Future Appointments Appointment Date:06/16/2024 08:15:00 AM Scheduled Provider: Location:.OCCUPATIONAL Appointment Type:OT 60 (FT) Appointment Date:06/16/2024 09:15:00 AM Scheduled Provider: [place] Appointment Type:PT Re-Eval 60 (FT) Appointment Date:06/17/2024 10:40:00 AM Scheduled Provider:Lakia Mcdonnell Location[facility] Appointment Type:URO Office Visit Appointment Date:06/18/2024 08:15:00 AM Scheduled Provider: Location:.OCCUPATIONAL Appointment Type:OT 60 (FT) Appointment Date:06/18/2024 09:15:00 AM Scheduled Provider: [place] Appointment Type:PT 60 (FT) Appointment Date:06/18/2024 11:00:00 AM Scheduled Provider:Kina Lee PA-C Location[facility] Appointment Type:URO Office Visit Appointment Date:06/22/2024 08:45:00 AM Scheduled Provider: [place] Appointment Type:PT 60 (FT) Appointment Date:06/22/2024 09:45:00 AM Scheduled Provider: Location:.OCCUPATIONAL Appointment Type:OT 60 (FT) Appointment Date:06/25/2024 08:15:00 AM Scheduled Provider: Location:.OCCUPATIONAL Appointment Type:OT 60 (FT) Appointment Date:06/25/2024 09:15:00 AM Scheduled Provider: [place] Appointment Type:PT 60 (FT) Appointment Date:06/29/2024 08:45:00 AM Scheduled Provider: [place] Appointment Type:PT 60 (FT) Appointment Date:06/29/2024 09:45:00 AM Scheduled Provider: Location:.OCCUPATIONAL Appointment Type:OT Re-Eval (FT) Appointment Date:07/02/2024 08:30:00 AM Scheduled Provider: [place] Appointment Type:PT 60 (FT) Appointment Date:07/02/2024 09:30:00 AM Scheduled Provider: Location:.OCCUPATIONAL Appointment Type:OT 60 (FT) Appointment Date:07/02/2024 11:00:00 AM Scheduled Provider:Camilo Deras DO Location[facility] [place] Appointment Type:Pain Management - Office Injection (FT) Appointment Date:07/07/2024 12:45:00 PM Scheduled Provider: Location:.OCCUPATIONAL Appointment Type:OT 60 (FT) Appointment Date:07/07/2024 01:45:00 PM Scheduled Provider: [place] Appointment Type:PT 60 (FT) Appointment Date:07/08/2024 10:40:00 AM Scheduled Provider:Lakia Mcdonnell Location[facility] Appointment Type:URO Office Visit Appointment Date:07/09/2024 09:15:00 AM Scheduled Provider: [place] Appointment Type:PT Re-Eval 60 (FT) Appointment Date:07/09/2024 10:30:00 AM Scheduled Provider: Location:.OCCUPATIONAL Appointment Type:OT 60 (FT) Appointment Date:07/14/2024 08:30:00 AM Scheduled Provider: Location:.OCCUPATIONAL Appointment Type:OT 60 (FT) Appointment Date:07/14/2024 09:30:00 AM Scheduled Provider: [place] Appointment Type:PT 60 (FT) Appointment Date:07/16/2024 12:15:00 PM Scheduled Provider: Location:.OCCUPATIONAL Appointment Type:OT 60 (FT) Appointment Date:07/16/2024 01:45:00 PM Scheduled Provider: [place] Appointment Type:PT 60 (FT) [facility] Evaluation + Plan note Future Appointments Appointment Date:06/22/2024 08:45:00 AM Scheduled Provider: [place] Appointment Type:PT 60 (FT) Appointment Date:06/22/2024 09:45:00 AM Scheduled Provider: Location:.OCCUPATIONAL Appointment Type:OT 60 (FT) Appointment Date:06/25/2024 08:15:00 AM Scheduled Provider: Location:.OCCUPATIONAL Appointment Type:OT 60 (FT) Appointment Date:06/25/2024 09:15:00 AM Scheduled Provider: [place] Appointment Type:PT 60 (FT) Appointment Date:06/29/2024 08:45:00 AM Scheduled Provider: [place] Appointment Type:PT 60 (FT) Appointment Date:06/29/2024 09:45:00 AM Scheduled Provider: Location:FT.OCCUPATIONAL Appointment Type:OT Re-Eval (FT) Appointment Date:07/02/2024 08:30:00 AM Scheduled Provider: Location:[place] Appointment Type:PT 60 (FT) Appointment Date:07/02/2024 09:30:00 AM Scheduled Provider: Location:.OCCUPATIONAL Appointment Type:OT 60 (FT) Appointment Date:07/02/2024 11:00:00 AM Scheduled Provider:Camilo Deras DO Location:.[facility] [place] Appointment Type:Pain Management - Office Injection (FT) Appointment Date:07/07/2024 12:45:00 PM Scheduled Provider: Location:.OCCUPATIONAL Appointment Type:OT 60 (FT) Appointment Date:07/07/2024 01:45:00 PM Scheduled Provider: [place] Appointment Type:PT 60 (FT) Appointment Date:07/08/2024 10:40:00 AM Scheduled Provider:Lakia Mcdonnell Location[facility] Appointment Type:URO Office Visit Appointment Date:07/09/2024 09:15:00 AM Scheduled Provider: [place] Appointment Type:PT Re-Eval 60 (FT) Appointment Date:07/09/2024 10:30:00 AM Scheduled Provider: Location:.OCCUPATIONAL Appointment Type:OT 60 (FT) Appointment Date:07/14/2024 08:30:00 AM Scheduled Provider: Location:.OCCUPATIONAL Appointment Type:OT 60 (FT) Appointment Date:07/14/2024 09:30:00 AM Scheduled Provider: [place] Appointment Type:PT 60 (FT) Appointment Date:07/16/2024 12:15:00 PM Scheduled Provider: Location:.OCCUPATIONAL Appointment Type:OT 60 (FT) Appointment Date:07/16/2024 01:45:00 PM Scheduled Provider: [place] Appointment Type:PT 60 (FT) Appointment Date:07/29/2024 10:40:00 AM Scheduled Provider:Lakia Mcdonnell Location:[facility] Appointment Type:URO Office Visit Diagnostic Tests Pending * Urine Culture 06/17/24 [facility] Evaluation + Plan note Future Appointments Appointment Date:07/09/2024 09:15:00 AM Scheduled Provider: [place] Appointment Type:PT Re-Eval 60 (FT) Appointment Date:07/09/2024 10:30:00 AM Scheduled Provider: Location:.OCCUPATIONAL Appointment Type:OT 60 (FT) Appointment Date:07/09/2024 12:00:00 PM Scheduled Provider: Location:.MAMMOGRAM Appointment Type:MA Screen (FT) Appointment Date:07/14/2024 09:30:00 AM Scheduled Provider: [place] Appointment Type:PT 60 (FT) Appointment Date:07/16/2024 12:15:00 PM Scheduled Provider: Location:.OCCUPATIONAL Appointment Type:OT 60 (FT) Appointment Date:07/16/2024 01:45:00 PM Scheduled Provider: [place] Appointment Type:PT 60 (FT) Appointment Date:07/21/2024 08:30:00 AM Scheduled Provider: Location:.OCCUPATIONAL Appointment Type:OT 60 (FT) Appointment Date:07/23/2024 02:00:00 PM Scheduled Provider: Location:.OCCUPATIONAL Appointment Type:OT 60 (FT) Appointment Date:07/27/2024 10:00:00 AM Scheduled Provider: Location:.OCCUPATIONAL Appointment Type:OT Re-Eval (FT) Appointment Date:07/29/2024 10:40:00 AM Scheduled Provider:Lakia Mcdonnell Location[facility] Appointment Type:URO Office Visit Appointment Date:07/30/2024 12:30:00 PM Scheduled Provider: Location:.OCCUPATIONAL Appointment Type:OT 60 (FT) Appointment Date:08/03/2024 08:30:00 AM Scheduled Provider: Location:FT.OCCUPATIONAL Appointment Type:OT 60 (FT) Appointment Date:08/05/2024 09:15:00 AM Scheduled Provider: Location:FT.OCCUPATIONAL Appointment Type:OT 60 (FT) Appointment Date:08/10/2024 08:30:00 AM Scheduled Provider: Location:FT.OCCUPATIONAL Appointment Type:OT 60 (FT) Appointment Date:08/13/2024 09:30:00 AM Scheduled Provider: Location:FT.OCCUPATIONAL Appointment Type:OT 60 (FT) Appointment Date:08/17/2024 09:30:00 AM Scheduled Provider: Location:FT.OCCUPATIONAL Appointment Type:OT Re-Eval (FT) Future Scheduled Tests Radiology* MA Mamm Screen w/CAD if perf and 3D David 07/09/24 [facility] Evaluation + Plan note Future Appointments Appointment Date:07/30/2024 12:30:00 PM Scheduled Provider: Location:FT.OCCUPATIONAL Appointment Type:OT 60 (FT) Appointment Date:07/30/2024 01:45:00 PM Scheduled Provider: [place] Appointment Type:PT 60 (FT) Appointment Date:08/03/2024 08:30:00 AM Scheduled Provider: Location:FT.OCCUPATIONAL Appointment Type:OT 60 (FT) Appointment Date:08/03/2024 09:45:00 AM Scheduled Provider: [place] Appointment Type:PT 60 (FT) Appointment Date:08/05/2024 09:15:00 AM Scheduled Provider: Location:.OCCUPATIONAL Appointment Type:OT 60 (FT) Appointment Date:08/05/2024 10:15:00 AM Scheduled Provider: Location:[place] Appointment Type:PT 60 (FT) Appointment Date:08/10/2024 08:30:00 AM Scheduled Provider: Location:FT.OCCUPATIONAL Appointment Type:OT 60 (FT) Appointment Date:08/10/2024 09:45:00 AM Scheduled Provider: [place] Appointment Type:PT 60 (FT) Appointment Date:08/13/2024 09:30:00 AM Scheduled Provider: Location:.OCCUPATIONAL Appointment Type:OT 60 (FT) Appointment Date:08/13/2024 10:30:00 AM Scheduled Provider: [place] Appointment Type:PT 60 (FT) Appointment Date:08/17/2024 08:30:00 AM Scheduled Provider: [place] Appointment Type:PT 60 (FT) Appointment Date:08/17/2024 09:30:00 AM Scheduled Provider: Location:.OCCUPATIONAL Appointment Type:OT Re-Eval (FT) Appointment Date:08/19/2024 08:30:00 AM Scheduled Provider: [place] Appointment Type:PT 60 (FT) Appointment Date:08/19/2024 11:30:00 AM Scheduled Provider: Location:[facility] [place] Appointment Type:URO Nurse Visit Appointment Date:08/20/2024 07:30:00 AM Scheduled Provider: Location:FT.OCCUPATIONAL Appointment Type:OT 60 (FT) Appointment Date:08/24/2024 07:30:00 AM Scheduled Provider: Location:FT.OCCUPATIONAL Appointment Type:OT 60 (FT) Appointment Date:08/24/2024 08:45:00 AM Scheduled Provider: [place] Appointment Type:PT Re-Eval 60 (FT) Appointment Date:08/27/2024 08:30:00 AM Scheduled Provider: Location:[place] Appointment Type:PT 60 (FT) Appointment Date:08/27/2024 09:30:00 AM Scheduled Provider: Location:.OCCUPATIONAL Appointment Type:OT 60 (FT) Appointment Date:08/31/2024 08:45:00 AM Scheduled Provider: [place] Appointment Type:PT 60 (FT) Appointment Date:08/31/2024 09:45:00 AM Scheduled Provider: Location:FT.OCCUPATIONAL Appointment Type:OT 60 (FT) Appointment Date:09/02/2024 08:30:00 AM Scheduled Provider: [place] Appointment Type:PT 60 (FT) Appointment Date:09/02/2024 09:30:00 AM Scheduled Provider: Location:FT.OCCUPATIONAL Appointment Type:OT 60 (FT) Appointment Date:09/07/2024 08:45:00 AM Scheduled Provider: [place] Appointment Type:PT 60 (FT) Appointment Date:09/07/2024 09:45:00 AM Scheduled Provider: Location:.OCCUPATIONAL Appointment Type:OT 60 (FT) Appointment Date:09/09/2024 01:30:00 PM Scheduled Provider:Lakia Mcdonnell Location[facility] Appointment Type:URO Office Visit Appointment Date:09/10/2024 08:30:00 AM Scheduled Provider: [place] Appointment Type:PT 60 (FT) Appointment Date:09/10/2024 09:30:00 AM Scheduled Provider: Location:.OCCUPATIONAL Appointment Type:OT 60 (FT) Appointment Date:09/16/2024 08:45:00 AM Scheduled Provider: Location:[place] Appointment Type:PT 60 (FT) Appointment Date:09/16/2024 09:45:00 AM Scheduled Provider: Location:FT.OCCUPATIONAL Appointment Type:OT Re-Eval (FT) Appointment Date:09/17/2024 08:30:00 AM Scheduled Provider: Location:[place] Appointment Type:PT 60 (FT) Appointment Date:09/21/2024 08:45:00 AM Scheduled Provider: Location:[place] Appointment Type:PT Re-Eval 60 (FT) Appointment Date:09/23/2024 08:30:00 AM Scheduled Provider: Location:[place] Appointment Type:PT 60 (FT) Appointment Date:09/30/2024 08:15:00 AM Scheduled Provider: [place] Appointment Type:PT 60 (FT) Appointment Date:09/30/2024 01:00:00 PM Scheduled Provider:MARILIA CR PA-C Location[facility] Appointment Type:URO Office Visit Appointment Date:10/02/2024 08:15:00 AM Scheduled Provider: Location:[place] Appointment Type:PT 60 (FT) Appointment Date:10/05/2024 08:45:00 AM Scheduled Provider: [place] Appointment Type:PT Re-Eval 60 (FT) [facility] Evaluation + Plan note Future Appointments Appointment Date:08/24/2024 07:30:00 AM Scheduled Provider: Location:.OCCUPATIONAL Appointment Type:OT 60 (FT) Appointment Date:08/24/2024 08:45:00 AM Scheduled Provider: [place] Appointment Type:PT Re-Eval 60 (FT) Appointment Date:08/27/2024 08:30:00 AM Scheduled Provider: [place] Appointment Type:PT 60 (FT) Appointment Date:08/27/2024 09:30:00 AM Scheduled Provider: Location:.OCCUPATIONAL Appointment Type:OT 60 (FT) Appointment Date:08/31/2024 08:45:00 AM Scheduled Provider: [place] Appointment Type:PT 60 (FT) Appointment Date:08/31/2024 09:45:00 AM Scheduled Provider: Location:FT.OCCUPATIONAL Appointment Type:OT 60 (FT) Appointment Date:09/02/2024 08:30:00 AM Scheduled Provider: [place] Appointment Type:PT 60 (FT) Appointment Date:09/02/2024 09:30:00 AM Scheduled Provider: Location:.OCCUPATIONAL Appointment Type:OT 60 (FT) Appointment Date:09/07/2024 08:45:00 AM Scheduled Provider: [place] Appointment Type:PT 60 (FT) Appointment Date:09/07/2024 09:45:00 AM Scheduled Provider: Location:.OCCUPATIONAL Appointment Type:OT 60 (FT) Appointment Date:09/09/2024 01:30:00 PM Scheduled Provider:Lakia Mcdonnell Location[facility] Appointment Type:URO Office Visit Appointment Date:09/10/2024 08:30:00 AM Scheduled Provider: [place] Appointment Type:PT 60 (FT) Appointment Date:09/10/2024 09:30:00 AM Scheduled Provider: Location:.OCCUPATIONAL Appointment Type:OT 60 (FT) Appointment Date:09/16/2024 08:45:00 AM Scheduled Provider: [place] Appointment Type:PT 60 (FT) Appointment Date:09/16/2024 09:45:00 AM Scheduled Provider: Location:.OCCUPATIONAL Appointment Type:OT Re-Eval (FT) Appointment Date:09/17/2024 08:30:00 AM Scheduled Provider: [place] Appointment Type:PT 60 (FT) Appointment Date:09/21/2024 08:45:00 AM Scheduled Provider: [place] Appointment Type:PT Re-Eval 60 (FT) Appointment Date:09/23/2024 08:30:00 AM Scheduled Provider: [place] Appointment Type:PT 60 (FT) Appointment Date:09/30/2024 08:15:00 AM Scheduled Provider: [place] Appointment Type:PT 60 (FT) Appointment Date:09/30/2024 01:00:00 PM Scheduled Provider:MARILIA CR PA-C Location[facility] Appointment Type:URO Office Visit Appointment Date:10/02/2024 08:15:00 AM Scheduled Provider: Location:[place] Appointment Type:PT 60 (FT) Appointment Date:10/05/2024 08:45:00 AM Scheduled Provider: Location:[place] Appointment Type:PT Re-Eval 60 (FT) [facility] Evaluation + Plan note Future Appointments Appointment Date:10/22/2024 01:45:00 PM Scheduled Provider:Camilo Deras DO Location:.[facility] [place] Appointment Type:Pain Management - Office Injection (FT) Appointment Date:10/26/2024 08:45:00 AM Scheduled Provider: [place] Appointment Type:PT 60 (FT) Appointment Date:10/26/2024 09:45:00 AM Scheduled Provider: Location:.OCCUPATIONAL Appointment Type:OT 60 (FT) Appointment Date:10/29/2024 08:30:00 AM Scheduled Provider: [place] Appointment Type:PT 60 (FT) Appointment Date:10/29/2024 09:30:00 AM Scheduled Provider: Location:.OCCUPATIONAL Appointment Type:OT 60 (FT) Appointment Date:11/02/2024 08:45:00 AM Scheduled Provider: [place] Appointment Type:PT 60 (FT) Appointment Date:11/02/2024 09:45:00 AM Scheduled Provider: Location:FT.OCCUPATIONAL Appointment Type:OT 60 (FT) Appointment Date:11/05/2024 08:30:00 AM Scheduled Provider: [place] Appointment Type:PT Re-Eval 60 (FT) Appointment Date:11/05/2024 09:30:00 AM Scheduled Provider: Location:.OCCUPATIONAL Appointment Type:OT 60 (FT) Appointment Date:11/09/2024 08:45:00 AM Scheduled Provider: [place] Appointment Type:PT 60 (FT) Appointment Date:11/09/2024 09:45:00 AM Scheduled Provider: Location:FT.OCCUPATIONAL Appointment Type:OT 60 (FT) Appointment Date:11/11/2024 09:20:00 AM Scheduled Provider:Lakia Mcdonnell Location[facility] Appointment Type:URO Office Visit Appointment Date:11/12/2024 08:30:00 AM Scheduled Provider: Location:FT.OCCUPATIONAL Appointment Type:OT Re-Eval (FT) Appointment Date:11/12/2024 09:30:00 AM Scheduled Provider: Location:[place] Appointment Type:PT 60 (FT) Appointment Date:11/16/2024 08:45:00 AM Scheduled Provider: Location:[place] Appointment Type:PT 60 (FT) Appointment Date:11/16/2024 09:45:00 AM Scheduled Provider: Location:FT.OCCUPATIONAL Appointment Type:OT 60 (FT) Appointment Date:11/19/2024 09:30:00 AM Scheduled Provider: Location:[place] Appointment Type:PT 60 (FT) Appointment Date:11/19/2024 10:30:00 AM Scheduled Provider: Location:FT.OCCUPATIONAL Appointment Type:OT 60 (FT) Appointment Date:11/23/2024 08:45:00 AM Scheduled Provider: Location:[place] Appointment Type:PT 60 (FT) Appointment Date:11/23/2024 09:45:00 AM Scheduled Provider: Location:FT.OCCUPATIONAL Appointment Type:OT 60 (FT) Appointment Date:11/26/2024 08:30:00 AM Scheduled Provider: Location:FT.OCCUPATIONAL Appointment Type:OT 60 (FT) Appointment Date:11/26/2024 09:30:00 AM Scheduled Provider: Location:[place] Appointment Type:PT 60 (FT) Appointment Date:11/30/2024 08:45:00 AM Scheduled Provider: Location:[place] Appointment Type:PT 60 (FT) Appointment Date:11/30/2024 09:45:00 AM Scheduled Provider: Location:FT.OCCUPATIONAL Appointment Type:OT 60 (FT) Appointment Date:12/02/2024 08:45:00 AM Scheduled Provider: Location:[place] Appointment Type:PT Re-Eval 60 (FT) Appointment Date:12/02/2024 09:45:00 AM Scheduled Provider: Location:.OCCUPATIONAL Appointment Type:OT 60 (FT) Appointment Date:12/02/2024 12:30:00 PM Scheduled Provider:Lakia Mcdonnell Location[facility] Appointment Type:URO Office Visit Appointment Date:12/09/2024 08:15:00 AM Scheduled Provider: [place] Appointment Type:PT 60 (FT) Appointment Date:12/09/2024 09:15:00 AM Scheduled Provider: Location:.OCCUPATIONAL Appointment Type:OT 60 (FT) Appointment Date:12/11/2024 08:15:00 AM Scheduled Provider: [place] Appointment Type:PT 60 (FT) Appointment Date:12/11/2024 09:15:00 AM Scheduled Provider: Location:.OCCUPATIONAL Appointment Type:OT Re-Eval (FT) Appointment Date:12/15/2024 08:30:00 AM Scheduled Provider: [place] Appointment Type:PT 60 (FT) Appointment Date:12/15/2024 09:30:00 AM Scheduled Provider: Location:FT.OCCUPATIONAL Appointment Type:OT 60 (FT) Appointment Date:12/17/2024 08:30:00 AM Scheduled Provider: [place] Appointment Type:PT Re-Eval 60 (FT) Appointment Date:12/17/2024 09:30:00 AM Scheduled Provider: Location:.OCCUPATIONAL Appointment Type:OT Re-Eval (FT) Appointment Date:12/23/2024 09:20:00 AM Scheduled Provider:Lakia Mcdonnell Location[facility] Appointment Type:URO Office Visit [facility] Evaluation + Plan note Future Appointments Appointment Date:11/12/2024 08:30:00 AM Scheduled Provider: Location:.OCCUPATIONAL Appointment Type:OT Re-Eval (FT) Appointment Date:11/12/2024 09:30:00 AM Scheduled Provider: [place] Appointment Type:PT 60 (FT) Appointment Date:11/16/2024 08:45:00 AM Scheduled Provider: [place] Appointment Type:PT 60 (FT) Appointment Date:11/16/2024 09:45:00 AM Scheduled Provider: Location:.OCCUPATIONAL Appointment Type:OT 60 (FT) Appointment Date:11/19/2024 09:30:00 AM Scheduled Provider: [place] Appoint[place] Type:PT 60 (FT) Appointment Date:11/19/2024 10:30:00 AM Scheduled Provider: Location:.OCCUPATIONAL Appointment Type:OT 60 (FT) Appointment Date:11/23/2024 08:45:00 AM Scheduled Provider: [place] Appoint[place] Type:PT 60 (FT) Appointment Date:11/23/2024 09:45:00 AM Scheduled Provider: Location:.OCCUPATIONAL Appointment Type:OT 60 (FT) Appointment Date:11/26/2024 08:30:00 AM Scheduled Provider: Location:.OCCUPATIONAL Appointment Type:OT 60 (FT) Appointment Date:11/26/2024 09:30:00 AM Scheduled Provider: [place] Appointment Type:PT 60 (FT) Appointment Date:11/30/2024 08:45:00 AM Scheduled Provider: [place] Appoint[place] Type:PT 60 (FT) Appointment Date:11/30/2024 09:45:00 AM Scheduled Provider: Location:.OCCUPATIONAL Appointment Type:OT 60 (FT) Appointment Date:12/02/2024 08:45:00 AM Scheduled Provider: [place] Appointment Type:PT Re-Eval 60 (FT) Appointment Date:12/02/2024 09:45:00 AM Scheduled Provider: Location:.OCCUPATIONAL Appointment Type:OT 60 (FT) Appointment Date:12/02/2024 11:30:00 AM Scheduled Provider: Location:[facility] [place] Appointment Type:URO Nurse Visit Appointment Date:12/09/2024 08:15:00 AM Scheduled Provider: [place] Appointment Type:PT 60 (FT) Appointment Date:12/09/2024 09:15:00 AM Scheduled Provider: Location:.OCCUPATIONAL Appointment Type:OT 60 (FT) Appointment Date:12/11/2024 08:15:00 AM Scheduled Provider: [place] Appointment Type:PT 60 (FT) Appointment Date:12/11/2024 09:15:00 AM Scheduled Provider: Location:FT.OCCUPATIONAL Appointment Type:OT Re-Eval (FT) Appointment Date:12/15/2024 08:30:00 AM Scheduled Provider: Location:[place] Appointment Type:PT 60 (FT) Appointment Date:12/15/2024 09:30:00 AM Scheduled Provider: Location:FT.OCCUPATIONAL Appointment Type:OT 60 (FT) Appointment Date:12/17/2024 08:30:00 AM Scheduled Provider: Location:[place] Appointment Type:PT Re-Eval 60 (FT) Appointment Date:12/17/2024 09:30:00 AM Scheduled Provider: Location:FT.OCCUPATIONAL Appointment Type:OT Re-Eval (FT) Appointment Date:12/23/2024 09:20:00 AM Scheduled Provider:Lakia Mcdonnell Location[facility] Appointment Type:URO Office Visit Appointment Date:01/13/2025 09:00:00 AM Scheduled Provider:Lakia Mcdonnell Location[facility] Appointment Type:URO Office Visit [facility] Evaluation note* Diagnosis Hemiparesis of right dominant side, unspecified hemiparesis etiology (HCC)- [facility] Diagnosis Transverse myelitis (HCC)- Primary Other causes of myelitis [facility]* Diagnosis Transverse myelitis (HCC)- Primary Other causes of myelitis Localized enlarged lymph nodes Enlargement of lymph nodes Vision loss of right eye Unqualified visual loss, one eye [facility] Localized enlarged lymph nodes Enlargement of lymph nodes [facility] Diagnosis Spastic hemiplegia of right dominant side due to noncerebrovascular etiology (HCC)- Primary ILD (interstitial lung disease) (HCC) Postinflammatory pulmonary fibrosis Uveitis Unspecified iridocyclitis Recurrent mouth ulceration Other and unspecified diseases of the oral soft tissues [facility] Diagnosis Hypoglycemic reaction- Primary Hypoglycemia, unspecified [facility] Diagnosis Transverse myelitis (HCC) Other causes of myelitis [facility]* Diagnosis Spastic hemiparesis affecting dominant side (HCC)- Primary Spastic hemiplegia affecting dominant side Impaired mobility and ADLs Other ill-defined conditions Abnormality of gait Dysphagia, unspecified type [facility]* Diagnosis Sarcoidosis- Primary SOB (shortness of breath) Shortness of breath [facility]* Diagnosis Sarcoidosis- Primary SOB (shortness of breath) Shortness of breath [facility]* Diagnosis Spastic hemiparesis affecting dominant side (HCC) Spastic hemiplegia affecting dominant side Impaired mobility and ADLs Other ill-defined conditions Abnormality of gait [facility]* Diagnosis Vision loss, bilateral- Primary Unqualified visual loss, both eyes Transverse myelitis (HCC) Other causes of myelitis Uveitis Unspecified iridocyclitis Optic neuropathy Other optic neuritis [facility]* Diagnosis Impaired mobility and ADLs- Primary Other ill-defined conditions Spastic hemiparesis affecting dominant side (HCC) Spastic hemiplegia affecting dominant side Abnormality of gait [facility]* Diagnosis Acute transverse myelitis (HCC)- Primary Acute (transverse) myelitis NOS [facility]* Diagnosis Spastic hemiparesis affecting dominant side (HCC)- Primary Spastic hemiplegia affecting dominant side [facility] noteNo assessment information availableSelect [facility] Work Phone: Evaluation note* Diagnosis Spastic hemiparesis affecting dominant side (HCC)- Primary Spastic hemiplegia affecting dominant side Acute transverse myelitis (HCC) Acute (transverse) myelitis NOS Chronic right shoulder pain Pain in joint, shoulder region Dysphagia, unspecified type [facility]* Diagnosis Spastic hemiparesis affecting dominant side (HCC)- Primary Spastic hemiplegia affecting dominant side Acute transverse myelitis (HCC) Acute (transverse) myelitis NOS [facility] Intractable migraine without aura and without status migrainosus- Primary Migraine without aura, with intractable migraine, so stated, without mention of status migrainosus Transverse myelitis (HCC) Other causes of myelitis [facility] N[facility] No data available for this section [facility] No data available for this section [facility] No data available for this section [facility] Donn Summary Purpose Family History No Family History Records Found Relationship Condition Age at Onset Recorded Date/T minh father Type 2 diabetes mellitus Unknown Heart diseaseUnknownChronic obstructive pulmonary diseaseUnknownCerebrovascular accident (CVA)UnknownHistory of agent [place] exposureUnknownPosttraumatic stress disorderUnknownNot SpecifiedMalignant neoplasm of skinUnknownTransient ischemic attackUnknown Advance Directives No Advanced Directives Records FoundDocuments on File TypeDate RecordedPatient RepresentativeExplanationAdvance Directive(s)03/28/2018 3:20 PMAdvance Directive(s)04/10/2017 11:11 AMTypeDate RecordedPatient RepresentativeExplanationAdvance Directive(s)03/28/2018 3:20 PMAdvance Directive(s)04/10/2017 11:11 AM Advance Directive Response Recorded Date/ Time Advance Directives No January 23, 2019 8:01pm Reason for Referral SpecialtyDiagnoses / ProceduresReferred By ContactReferred To Contact Diagnoses Intractable migraine without aura and without status migrainosus Procedures PROVIDER ORDERED FOLLOW UP OFFICE/OUTPATIENT [facility] MDM 60 MINUTES Justina Fuentes MD [address] [place] [address] Referral IDStatusReasonStart DateExpiration DateVisits RequestedVisits [id number] PCP Requested Referral [id number] / ProceduresReferred By ContactReferred To ContactREHAB AND SPORTS THERAPY INS Diagnoses Dysphagia, unspecified type Procedures CONSULT TO SPEECH THERAPY OFFICE/OUTPATIENT [facility] MDM 60-74 MINUTES Desiree Phillips APRN.FIELD INTERVIEWER [address] [place] [address] [facility] [address] [address] Referral IDStatusReasonStart DateExpiration DateVisits RequestedVisits [id number] Review Auto-Generated Referral [id number] / ProceduresReferred By ContactReferred To ContactREHAB AND SPORTS THERAPY INS Diagnoses Spastic hemiparesis affecting dominant side (HCC) Impaired mobility and ADLs Abnormality of gait Procedures CONSULT TO WALLCOVERING TEXTURER OCCUPATIONAL THERAPY [facility] COMPLEX 60 MINS Desiree Phillips APRN.FIELD INTERVIEWER [address] [place] [address] [facility] [address] [address] Referral IDStatusReasonStart DateExpiration DateVisits RequestedVisits [id number] Review Auto-Generated Referral [id number] / ProceduresReferred By ContactReferred To ContactREHAB AND SPORTS THERAPY INS Diagnoses Spastic hemiparesis affecting dominant side (HCC) Impaired mobility and ADLs Abnormality of gait Procedures CONSULT TO PHYSICAL THERAPY PHYSICAL THERAPY [facility] COMPLEX 45 MINS Desiree Phillips APRN.FIELD INTERVIEWER [address] [place] [address] [facility] [address] [address] Referral IDStatusReasonStart DateExpiration DateVisits RequestedVisits [id number] Review Auto-Generated Referral [id number] / ProceduresReferred By ContactReferred To ContactOphthalmology Diagnoses Uveitis Procedures CONSULT TO OPHTHALMOLOGY OFFICE/OUTPATIENT [facility] 60-74 MINUTES Urszula Genao MD [address] [place] [address] Referral IDStatusReasonStart DateExpiration DateVisits RequestedVisits [id number] Review PCP Requested Referral [id number] / ProceduresReferred By ContactReferred To ContactOphthalmology Diagnoses Transverse myelitis (HCC) Procedures CONSULT TO OPHTHALMOLOGY OFFICE/OUTPATIENT [facility] 60-74 MINUTES Jose Hassan MD [address] [facility] [place] [address] Referral IDStatusReasonStart DateExpiration DateVisits RequestedVisits [id number] PCP Requested Referral [id number] / ProceduresReferred By ContactReferred To ContactRheumatology Diagnoses Transverse myelitis (HCC) Procedures CONSULT TO RHEUM/IMMUN DISEASE OFFICE/OUTPATIENT [facility] 60-74 MINUTES Jose Hassan MD [address] [place] [address] Referral IDStatusReasonStart DateExpiration DateVisits RequestedVisits [id number] PCP Requested Referral [id number] / ProceduresReferred By ContactReferred To ContactMR IMAGING Diagnoses Transverse myelitis (HCC) Procedures MRI BRAIN WO IVCON MRI BRAIN BRAIN STEM W/O CONTRAST MATERIAL Jose Hassan MD [address] [place] [address] Mr Imaging Referral IDStatusReasonStart DateExpiration DateVisits RequestedVisits [id number] Review Auto-Generated Referral [id number] / ProceduresReferred By ContactReferred To ContactMR IMAGING Diagnoses Transverse myelitis (HCC) Procedures MRI THORACIC SPINE WO IVCON MRI SPINAL CANAL THORACIC W/O CONTRAST MATRL Jose Hassan MD [address] [facility] [place] [address] Mr Imaging Referral IDStatusReasonStart DateExpiration DateVisits RequestedVisits [id number] Review Auto-Generated Referral [id number] / ProceduresReferred By ContactReferred To ContactMR IMAGING Diagnoses Transverse myelitis (HCC) Procedures MRI CERVICAL SPINE WO IVCON MRI SPINAL CANAL CERVICAL W/O CONTRAST MATRL Jose Hassan MD [address] [place] [address] Mr Imaging Referral IDStatusReasonStart DateExpiration DateVisits RequestedVisits [id number] Review Auto-Generated Referral [id number] / ProceduresReferred By ContactReferred To ContactCT IMAGING Diagnoses Localized enlarged lymph nodes Procedures CT CHEST WO IVCON DIAGNOSTIC COMPUTED TOMOGRAPHY THORAX W/O CNTRST Jose Hassan MD [address] [place] [id number] Imaging Referral IDStatusReasonStart DateExpiration DateVisits RequestedVisits [id number] Review Auto-Generated Referral [id number] / ProceduresReferred By ContactReferred To Contact Diagnoses Transverse myelitis (HCC) Procedures CONSULT TO [facility] OFFICE/OUTPATIENT [facility] 60-74 MINUTES Justina Fuentes MD [address] [place] [address] Referral IDStatusReasonStart DateExpiration DateVisits RequestedVisits [id number] Review PCP Requested Referral [id number] / ProceduresReferred By ContactReferred To ContactREHAB AND SPORTS THERAPY INS Diagnoses Transverse myelitis (HCC) Procedures CONSULT TO PHYSICAL MEDICINE AND REHABILITATION OFFICE/OUTPATIENT [facility] 60-74 MINUTES Justina Fuentes MD [address] [place] [address] [facility] [address] [address] Referral IDStatusReasonStart DateExpiration DateVisits RequestedVisits [id number] Review PCP Requested Referral Auto-Generated Referral Medications Administered Section Medication OrderMAR ActionAction DateDoseRateSite tropicamide 1 % 1 Drop (MYDRIACYL) 1 Drop, BOTH EYES, DIRECTED, Starting on Sat10/20/21 at 1200, Until Sat10/20/21 at 2359, Administer for dilation Given10/20/2021 11:35 AM EDT1 DropMedication OrderMAR ActionAction DateDoseRate Site PHENYLephrine 2.5 % 1 Drop (AK-DILATE, MATTHEW-SYNEPHRINE) 1 Drop, BOTH EYES, DIRECTED, Starting on Sat12/05/21 at 0000, Until Sat12/05/21 at 1159, Administer for dilation PROTECT FROM LIGHT Given12/06/2021 10:31 AM EDT1 Drop tropicamide 1 % 1 Drop (MYDRIACYL) 1 Drop, BOTH EYES, DIRECTED, Starting on Sat12/05/21 at 0000, Until Sat12/05/21 at 1159, Administer for dilation Given12/06/2021 10:32 AM EDT1 DropMedication OrderMAR ActionAction DateDoseRate Site onabotulinum toxin type A 300 Units injection (BOTOX) 300 Units, INTRAMUSCULAR, ONCE, 1 dose, On Sat08/03/22 at 1200, Reconstitute with 1.2 mL 0.9% NaCl.This record documents the total dose provided to patient. See progress note for specific locations and amounts administered. REFRIGERATE - Pharmaceutical Waste: Lab Pack - Given08/03/2022 12:00 PM [id number] UnitsOtherMedication OrderMAR ActionAction Date DoseRateSite onabotulinum toxin type A 400 Units injection (BOTOX) 400 Units, INTRAMUSCULAR, ONCE, 1 dose, On Sat01/30/23 at 1400, Reconstitute with 1.2 mL 0.9% NaCl. This record documents the total dose provided to patient. See progress note for specific locationsand amounts administered. REFRIGERATE - Pharmaceutical Waste: Lab Pack - Given01/30/2023 2:15 PM [id number] UnitsOther Chief Complaint and Reason for Visit Chief Complaint Hypotonic Neurogenic Bladder Chief Complaint Hypotonic Neurogenic Bladder Hypotonic Neurogenic Bladder Additional Source Comments INFORMATION SOURCE (unrecogn ized section and content) DATE CREATED AUTHOR 04/09/2018 [facility] DATE CREATED AUTHOR AUTHOR'S ORGANIZ ATION 07/28/2022 [facility] DATE CREATED AUTHOR AUTHOR'S ORGANIZ ATION 08/09/2022 [facility] DATE CREATED AUTHOR AUTHOR'S ORGANIZ ATION 03/30/2024 [facility] DATE CREATED AUTHOR AUTHOR'S ORGANIZ ATION 05/31/2024 [facility] DATE CREATED AUTHOR AUTHOR'S ORGANIZ ATION 06/25/2024 [facility] DATE CREATED AUTHOR AUTHOR'S ORGANIZ ATION 07/15/2024 [facility] DATE CREATED AUTHOR AUTHOR'S ORGANIZ ATION 08/07/2024 [facility] DATE CREATED AUTHOR AUTHOR'S ORGANIZ ATION 08/07/2024 [facility] DATE CREATED AUTHOR AUTHOR'S ORGANIZ ATION 12/02/2024 [facility] DATE CREATED AUTHOR AUTHOR'S ORGANIZ ATION 12/13/2024 [facility] Source Comments (unrecognize d section and content) In the event this informatio n is protected by the Federal Confidentiality of Alcohol and Drug Abuse Patient Records regulations: The Federal rules restrict any use of the information to criminally investigate or prosecute any alcohol or drug abuse patient.[facility] HospitalIn the event this information is protected by the Federal Confidentiality of Alcohol and Drug Abuse Patient Records regulations: The Federal rules restrict any use of the information to criminally investigate or prosecute any alcohol or drug abuse patient.[facility] HospitalIn the event this information is protected by the Federal Confidentiality of Alcohol and Drug Abuse Patient Records regulations: The Federal rules restrict any use of the information to criminally investigate or prosecute any alcohol or drug abuse patient.[facility] HospitalIn the event this information is protected by the Federal Confidentiality of Alcohol and Drug Abuse Patient Records regulations: The Federal rules restrict any use of the information to criminally investigate or prosecute any alcohol or drug abuse patient.[facility] HospitalIn the event this information is protected by the Federal Confidentiality of Alcohol and Drug Abuse Patient Records regulations: The Federal rules restrict any use of the information to criminally investigate or prosecute any alcohol or drug abuse patient.[facility] HospitalIn the event this information is protected by the Federal Confidentiality of Alcohol and Drug Abuse Patient Records regulations: The Federal rules restrict any use of the information to criminally investigate or prosecute any alcohol or drug abuse patient.[facility] HospitalIn the event this information is protected by the Federal Confidentiality of Alcohol and Drug Abuse Patient Records regulations: The Federal rules restrict any use of the information to criminally investigate or prosecute any alcohol or drug abuse patient.[facility] HospitalIn the event this information is protected by the Federal Confidentiality of Alcohol and Drug Abuse Patient Records regulations: The Federal rules restrict any use of the information to criminally investigate or prosecute any alcohol or drug abuse patient.[facility] HospitalIn the event this information is protected by the Federal Confidentiality of Alcohol and Drug Abuse Patient Records regulations: The Federal rules restrict any use of the information to criminally investigate or prosecute any alcohol or drug abuse patient.[facility] HospitalIn the event this information is protected by the Federal Confidentiality of Alcohol and Drug Abuse Patient Records regulations: The Federal rules restrict any use of the information to criminally investigate or prosecute any alcohol or drug abuse patient.[facility] HospitalIn the event this information is protected by the Federal Confidentiality of Alcohol and Drug Abuse Patient Records regulations: The Federal rules restrict any use of the information to criminally investigate or prosecute any alcohol or drug abuse patient.[facility] HospitalIn the event this information is protected by the Federal Confidentiality of Alcohol and Drug Abuse Patient Records regulations: The Federal rules restrict any use of the information to criminally investigate or prosecute any alcohol or drug abuse patient.[facility] HospitalIn the event this information is protected by the Federal Confidentiality of Alcohol and Drug Abuse Patient Records regulations: The Federal rules restrict any use of the information to criminally investigate or prosecute any alcohol or drug abuse patient.[facility] HospitalIn the event this information is protected by the Federal Confidentiality of Alcohol and Drug Abuse Patient Records regulations: The Federal rules restrict any use of the information to criminally investigate or prosecute any alcohol or drug abuse patient.[facility] HospitalIn the event this information is protected by the Federal Confidentiality of Alcohol and Drug Abuse Patient Records regulations: The Federal rules restrict any use of the information to criminally investigate or prosecute any alcohol or drug abuse patient.[facility] HospitalIn the event this information is protected by the Federal Confidentiality of Alcohol and Drug Abuse Patient Records regulations: The Federal rules restrict any use of the information to criminally investigate or prosecute any alcohol or drug abuse patient.[facility] HospitalIn the event this information is protected by the Federal Confidentiality of Alcohol and Drug Abuse Patient Records regulations: The Federal rules restrict any use of the information to criminally investigate or prosecute any alcohol or drug abuse patient.[facility] HospitalIn the event this information is protected by the Federal Confidentiality of Alcohol and Drug Abuse Patient Records regulations: The Federal rules restrict any use of the information to criminally investigate or prosecute any alcohol or drug abuse patient.[facility] HospitalIn the event this information is protected by the Federal Confidentiality of Alcohol and Drug Abuse Patient Records regulations: The Federal rules restrict any use of the information to criminally investigate or prosecute any alcohol or drug abuse patient.[facility] HospitalIn the event this information is protected by the Federal Confidentiality of Alcohol and Drug Abuse Patient Records regulations: The Federal rules restrict any use of the information to criminally investigate or prosecute any alcohol or drug abuse patient.[facility] HospitalIn the event this information is protected by the Federal Confidentiality of Alcohol and Drug Abuse Patient Records regulations: The Federal rules restrict any use of the information to criminally investigate or prosecute any alcohol or drug abuse patient.[facility] HospitalIn the event this information is protected by the Federal Confidentiality of Alcohol and Drug Abuse Patient Records regulations: The Federal rules restrict any use of the information to criminally investigate or prosecute any alcohol or drug abuse patient.[facility] HospitalIn the event this information is protected by the Federal Confidentiality of Alcohol and Drug Abuse Patient Records regulations: The Federal rules restrict any use of the information to criminally investigate or prosecute any alcohol or drug abuse patient.[facility] HospitalIn the event this information is protected by the Federal Confidentiality of Alcohol and Drug Abuse Patient Records regulations: The Federal rules restrict any use of the information to criminally investigate or prosecute any alcohol or drug abuse patient.[facility] HospitalIn the event this information is protected by the Federal Confidentiality of Alcohol and Drug Abuse Patient Records regulations: The Federal rules restrict any use of the information to criminally investigate or prosecute any alcohol or drug abuse patient.[facility] HospitalIn the event this information is protected by the Federal Confidentiality of Alcohol and Drug Abuse Patient Records regulations: The Federal rules restrict any use of the information to criminally investigate or prosecute any alcohol or drug abuse patient.[facility] HospitalIn the event this information is protected by the Federal Confidentiality of Alcohol and Drug Abuse Patient Records regulations: The Federal rules restrict any use of the information to criminally investigate or prosecute any alcohol or drug abuse patient.[facility] HospitalIn the event this information is protected by the Federal Confidentiality of Alcohol and Drug Abuse Patient Records regulations: The Federal rules restrict any use of the information to criminally investigate or prosecute any alcohol or drug abuse patient.[facility] HospitalIn the event this information is protected by the Federal Confidentiality of Alcohol and Drug Abuse Patient Records regulations: The Federal rules restrict any use of the information to criminally investigate or prosecute any alcohol or drug abuse patient.[facility] HospitalIn the event this information is protected by the Federal Confidentiality of Alcohol and Drug Abuse Patient Records regulations: The Federal rules restrict any use of the information to criminally investigate or prosecute any alcohol or drug abuse patient.[facility] HospitalIn the event this information is protected by the Federal Confidentiality of Alcohol and Drug Abuse Patient Records regulations: The Federal rules restrict any use of the information to criminally investigate or prosecute any alcohol or drug abuse patient.[facility] HospitalIn the event this information is protected by the Federal Confidentiality of Alcohol and Drug Abuse Patient Records regulations: The Federal rules restrict any use of the information to criminally investigate or prosecute any alcohol or drug abuse patient.[facility] HospitalIn the event this information is protected by the Federal Confidentiality of Alcohol and Drug Abuse Patient Records regulations: The Federal rules restrict any use of the information to criminally investigate or prosecute any alcohol or drug abuse patient.[facility] HospitalIn the event this information is protected by the Federal Confidentiality of Alcohol and Drug Abuse Patient Records regulations: The Federal rules restrict any use of the information to criminally investigate or prosecute any alcohol or drug abuse patient.[facility] HospitalIn the event this information is protected by the Federal Confidentiality of Alcohol and Drug Abuse Patient Records regulations: The Federal rules restrict any use of the information to criminally investigate or prosecute any alcohol or drug abuse patient.[facility] Reason for Visit (unrecogniz ed section and content) ReasonCommentsSpasticitybotulinum toxin injectionsSpecialtyDiagnoses / ProceduresReferred By ContactReferred To ContactNeurology / PHYSICAL MEDICINE AND REHAB Diagnoses Spastic hemiplegia affecting unspecified side Procedures BOTULINUM TOXIN A PER 1 UNIT INITIAL J0585 - BOTULINUM TOXIN A UP TO 400 UNITS EVERY 90 DAYS x 1 YEAR FOR SPASTICITY [address] EXTREMITY, 5 OR MORE MUSCLES Justina Fuentes MD [address] [place] [address] Desiree Phillips, KATHLEEN.[facility] [address] [place] [address] Referral IDStatusReasonStart DateExpiration DateVisits RequestedVisits [id number]/6/20229/5/[id number] Therapy SpecialtyDiagnoses / ProceduresReferred By ContactReferred To ContactREHAB AND SPORTS THERAPY INS Diagnoses Spastic hemiparesis affecting dominant side (HCC) Impaired mobility and ADLs Abnormality of gait Procedures CONSULT TO PHYSICAL THERAPY PHYSICAL THERAPY EVALUATION HIGH COMPLEX 45 MINS Desiree Phillips, FELT WASHING MACHINE TENDER.FIELD INTERVIEWER [address] [place] [address] [facility] [place] [address] [place] [address] Referral IDStatusReasonStart DateExpiration DateVisits RequestedVisits [id number]/1/202212/31/[id number] Outside Medical RecordsOSH NI referralReasonCommentsNew PatientReasonCommentsNew PatientReasonCommentsNew Patient EvaluationReasonCommentsRadiology CTSpecialty Diagnoses / ProceduresReferred By ContactReferred To ContactCT IMAGING Diagnoses Localized enlarged lymph nodes Procedures CT CHEST WO IVCON DIAGNOSTIC COMPUTED TOMOGRAPHY THORAX W/O CNTRST Jose Hassan MD [address] [place] [address] Ct Imaging Referral IDStatusReasonStart DateExpiration DateVisits RequestedVisits [id number] Auto-Generated Referral /[id number]oeViapiwumSgcdyenk Outside Medical RecordsSpecialtyDiagnoses / ProceduresReferred By ContactReferred To Contact Rheumatology Diagnoses Transverse myelitis (HCC) Procedures CONSULT TO RHEUM/IMMUN DISEASE OFFICE/OUTPATIENT [facility] 60-74 MINUTES Jose Hassan MD [address] [place] [address] Referral IDStatusReasonStart DateExpiration DateVisits RequestedVisits [id number] PCP Requested Referral /[id number] Vision Both EyesVisually Impaired Both EyesSpecialtyDiagnoses / ProceduresReferred By ContactReferred To ContactMR IMAGING Diagnoses Transverse myelitis (HCC) Procedures MRI BRAIN WO IVCON MRI BRAIN BRAIN STEM W/O CONTRAST MATERIAL Jose Hassan MD [address] [place] [address] Mr Imaging Referral IDStatusReB[facility] DateExpiration DateVisits RequestedVisits [id number] Auto-Generated Referral [id number]qOztp Pt a VM asking they return our call to schedule PT/OT/Speech Therapy Consults, preferably on the same day as their BOTOX appointment on 02/20/22ReasonCommentsSpirometrySpecialtyDiagnoses / ProceduresReferred By ContactReferred To ContactMESILLA [facility]ITALIR[facility] Diagnoses Sarcoidosis SOB (shortness of breath) Procedures LUNG DIFFUSION CAPACITY (DLCO) DIFFUSING CAPACITY Alberto Kendall MD [address] [place] [address] [place] [address] Ref[facility]Status[facility] DateExpiration DateVisits RequestedVisits [id number] Auto-Generated Referral [id number] / ProceduresReferred By ContactReferred To [facility] Diagnoses Sarcoidosis SOB (shortness of breath) Procedures SPIROMETRY WITH DILATOR IF OBSTRUCTED BRNCDILAT RSPSE SPMTRY PRE&POST-BRNCDILAT ADMN Alberto Kendall MD [address] [place] [address] [place] [address] Referral IDStatus[facility] DateExpiration DateVisits RequestedVisits [id number] Auto-Generated Referral [id number] Re-evalReasonCommentsMultiple Sclerosis SpecialtyDiagnoses / ProceduresReferred By ContactReferred To Contact Ophthalmology Diagnoses Transverse myelitis (HCC) Procedures CONSULT TO OPHTHALMOLOGY OFFICE/OUTPATIENT [facility] 60-[place] [address] [place] [address] Referral IDStatusReasonStart DateExpiration DateVisits RequestedVisits [id number] PCP Requested Referral [id number]a ordersReasonCommentsEstablished Patient Follow-UpReasonCommentsSpasticitybotulinum toxin injectionsSpecialty Diagnoses / ProceduresReferred By ContactReferred To ContactPHYSICAL MEDICINE AND REHAB Diagnoses Spastic hemiplegia affecting unspecified side Procedures BOTULINUM TOXIN A PER 1 UNIT RENEWAL J0585 - BOTULINUM TOXIN A UP TO 400 UNITS EVERY 90 DAYS x 1 YEAR FOR SPASTICITY [address] EXTREMITY, 5 OR MORE MUSCLES Haile Barrios MD [address] [place] [address] Haile Barrios MD [address] [facility] [place] [place] [address] Referral IDStatusReasonStart DateExpiration DateVisits RequestedVisits [id number]/13/20239/[id number] Request ReasonCommentsFollow UpHeadachesReasonCommentsFormsOT-[facility] Care Teams (unrecognized sec tion and content) Team MemberRelationshipSpecialtyStart DateEnd Hunter Quinteros MD PCP - Generalmi Wjwdsrxv26/13/12 Yimi Nina [address] [place] [address] ReferringOphthalmology04/10/17 Bella Fraser PA-C NI Referring Team01/09/21Team MemberRelationshipSpecialtyStart DateEnd Hunter Quinteros MD PCP - Generalmi Hyzbzgtj48/13/12 Yimi Nina [address] [place] [address] ReferringOphthalmology04/10/17 Bella Fraser PA-C NI Referring Team01/09/21Team MemberRelationshipSpecialtyStart DateEnd Date Hunter Quinteros MD PCP - [facility] Uaspttzt98/13/12 Yimi Nina [address] [place] [address] ReferringOphthalmology04/10/17 Bella Fraser PA-C NI Referring Team01/09/21Team MemberRelationshipSpecialtyStart DateEnd Date Hunter Quinteros MD PCP - [facility] Byrmtvie82/13/12 Yimi Nina [address] [place] [address] ReferringOphthalmology04/10/17 Bella Fraser PA-C NI Referring Team01/09/21Team MemberRelationshipSpecialtyStart DateEnd Hunter Quinteros MD PCP - [facility] Elaokqqt24/13/12 Yimi Nina [address] [place] [address] ReferringOphthalmology04/10/17 Bella Fraser PA-C NI Referring Team01/09/21Team MemberRelationshipSpecialtyStart DateEnd Date Hunter Quinteros MD PCP - [facility] Wxckihqn59/13/12 Yimi Nina [address] [place] [address] ReferringOphthalmology04/10/17 Bella Fraser PA-C NI Referring Team01/09/21Team MemberRelationshipSpecialtyStart DateEnd Date Hunter Quinteros MD PCP - GeneralFamily Ticogmvt98/13/12 Yimi Nina [address] [place] [address] ReferringOphthalmology04/10/17 Bella Fraser PA-C NI Referring Team01/09/21Team MemberRelationshipSpecialtyStart DateEnd Date Hunter Quinteros MD PCP - GeneralFamily Ildwsuvn82/13/12 Yimi Nina [address] [place] [address] ReferringOphthalmology04/10/17 Bella Fraser PA-C NI Referring Team01/09/21Team MemberRelationshipSpecialtyStart DateEnd Date Hunter Quinteros MD PCP - GeneralFamily Mzgfybnh57/13/12 Yimi Nina [address] [place] [address] ReferringOphthalmology04/10/17 Bella Fraser PA-C NI Referring Team01/09/21Team MemberRelationshipSpecialtyStart DateEnd Date Hunter Quinteros MD PCP - GeneralFamily Derbeayc48/13/12 Yimi Nina [address] [place] [address] ReferringOphthalmology04/10/17 Bella Fraser PA-C NI Referring Team01/09/21Team MemberRelationshipSpecialtyStart DateEnd Date [facility] Y[facility]fidrp58[facility]12 Yimi Nina [address] [place] [address] ReferringOphthalmology04/10/17 Bella Fraser PA-C NI Referring Team01/09/21Team MemberRelationshipSpecialtyStart DateEnd Date Hunter Quinteros MD PCP - [facility] Cggqefng03/13/12 Yimi Nina [address] [place] [address] ReferringOphthalmology04/10/17 Bella Fraser PA-C NI Referring Team01/09/21Team MemberRelationshipSpecialtyStart DateEnd Date Hunter Quinteros MD PCP - [facility] Tpqwplqg89/13/12 Yimi Nina [address] [place] [address] ReferringOphthalmology04/10/17 Bella Fraser PA-C NI Referring Team01/09/21Team MemberRelationshipSpecialtyStart DateEnd Date [facility] Sgssejmw73/13/12 Yimi Nina [address] [place] [address] ReferringOphthalmology04/10/17 Bella Fraser PA-C NI Referring Team01/09/21Team MemberRelationshipSpecialtyStart DateEnd Date Hunter Quinteros MD PCP - [facility] Fpwibswp95/13/12 Yimi Nina [address] [place] [address] ReferringOphthalmology04/10/17 Bella Fraser PA-C NI Referring Team01/09/21Team MemberRelationshipSpecialtyStart DateEnd Date Hunter Quinteros MD PCP - [facility] Yfmnhbao96/13/12 Yimi Nina [address] [place] [address] ReferringOphthalmology04/10/17 Bella Fraser PA-C NI Referring Team01/09/21Team MemberRelationshipSpecialtyStart DateEnd Date Hunter Quinteros MD PCP - [facility]01/01/12 Yimi Nina [address] [place] [address] ReferringOphthalmology04/10/17 Bella Fraser PA-C NI Referring Team01/09/21Team MemberRelationshipSpecialtyStart DateEnd Date Hunter Quinteros MD PCP - [facility] Vfdaifwd47/13/12 Yimi Nina [address] [place] [address] ReferringOphthalmology04/10/17 Bella Fraser PA-C NI Referring Team01/09/21Team MemberRelationshipSpecialtyStart DateEnd Date Hunter Quinteros MD PCP - [facility] Wnkwhwdq16/13/12 Yimi Nina [address] [place] [address] ReferringOphthalmology04/10/17 Bella Fraser PA-C NI Referring Team01/09/21Team MemberRelationshipSpecialtyStart DateEnd Date Hunter Quinteros MD PCP - [facility] Divgnngx74/13/12 Yimi Nina [address] [place] [address] ReferringOphthalmology04/10/17 Bella Fraser PA-C NI Referring Team01/09/21Team MemberRelationshipSpecialtyStart DateEnd Date Hunter Quinteros MD PCP - [facility] Bjcnwiwx92/13/12 Yimi Nina [address] [place] [address] ReferringOphthalmology04/10/17 Bella Fraser PA-C NI Referring Team01/09/21Team MemberRelationshipSpecialtyStart DateEnd Hunter Quinteros MD PCP - [facility] Aabmwvms70/13/12 Yimi Nina [address] [place] [address] ReferringOphthalmology04/10/17 Bella Fraser PA-C NI Referring Team01/09/21Team MemberRelationshipSpecialtyStart DateEnd Date Hunter Quinteros MD PCP - [facility] Wqtvcbsu10/13/12 Yimi Nina [address] [place] [address] ReferringOphthalmology04/10/17 Bella Fraser PA-C NI Referring Team01/09/21 Team Status: Active Member Role Status Lety Quinteros MD Primary Care Provider Active Team Status: Inactive Member Role Status Lety Quinteros MD Primary Care Provider Active [facility] ProviderActiveTeam MemberRelationshipSpecialtyStart DateEnd Hunter Holbrook MD PCP - [facility]01/01/12 Yimi Nina [address] [place] [address] ReferringOphthalmology04/10/17 Bella Fraser PA-C NI Referring Team01/09/21Team MemberRelationshipSpecialtyStart DateEnd Hunter Holbrook MD PCP - [facility]01/01/12 Yimi Nina [address] [place] [address] ReferringOphthalmology04/10/17 Bella Fraser PA-[place] [address] [place] [address] [place] [address] NI Referring Team01/09/21Team MemberRelationshipSpecialtyStart DateEnd Hunter Holbrook MD PCP - [facility]01/01/12 Yimi Nina [address] [place] [address] ReferringOphthalmology04/10/17 Bella Fraser PA-[place] [address] [place] [address] [place] [address] NI Referring Team01/09/21Team MemberRelationshipSpecialtyStart DateEnd Date Hunter Quinteros MD PCP - [facility] Rgsrexcm81/13/12 Yimi Nina [address] [place] [address] ReferringOphthalmology04/10/17 Bella Fraser PA-C NI Referring Team01/09/21Team MemberRelationshipSpecialtyStart DateEnd Hunter Quinteros MD PCP - [facility]01/01/12 Yimi Nina [address] [place] [address] ReferringOphthalmology04/10/17 Bella Fraser PA-C NI Referring Team01/09/21Team MemberRelationshipSpecialtyStart DateEnd Hunter Quinteros MD PCP - [facility] Bfqochcj30/13/12 Yimi Nina DO [address] [place] [address] ReferringOphthalmology04/10/17 Bella Fraser PA-C NI Referring Team01/09/21Team MemberRelationshipSpecialtyStart DateEnd Date Hunter Quinteros MD PCP - [facility] Wruenhmh87/13/12 Yimi Nina DO [address] [place] [address] ReferringOphthalmology04/10/17 Bella Fraser PA-C NI Referring Team01/09/21Team MemberRelationshipSpecialtyStart DateEnd Date Hunter Quinteros MD PCP - [facility]01/01/12 Yimi Nina DO [address] [place] [address] ReferringOphthalmology04/10/17 Bella Fraser PA-C NI Referring Team01/09/21Team MemberRelationshipSpecialtyStart DateEnd Date Hunter Quinteros MD PCP - [facility] Hjnqlsie82/13/12 Yimi Nina DO [address] [place] [address] ReferringOphthalmology04/10/17 Bella Fraser PA-C NI Referring Team01/09/21 Goals (unrecognized section and content) Goals may [...] BE BASED ON THE PRIMARY CLINICAL RECORDS. [facility] provides no warranty or guarantee of the accuracy or completeness of information in this document.
--- NOTE | 2024-12-13 13:19 | ED.GENADUL1 ---
HPI HPI - General Adult General Chief complaint: Urogenital-Female Stated complaint: [employer] BLOCKAGE Time Seen by Provider: 12/13/24 12:46 Source: patient Mode of arrival: Wheelchair History of Present Illness HPI narrative: Patient is a 49-year-old female presenting to the emergency department for evaluation of a clogged suprapubic catheter. 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 She typically gets her catheter exchanged every few weeks as it typically gets clogged with sediment. The last time it was change was 4 weeks ago. She denies any abdominal pain. She does not feel like she has a UTI. She denies fevers or chills. She has no other systemic symptoms such as abdominal pain, chest pain, shortness of breath, nausea, or vomiting. Related Data Home Medications ?Medication ?Instructions ?Recorded ?Confirmed allopurinol 100 mg tablet 100 mg PO DAILY 02/10/23 02/10/23 baclofen 20 mg tablet 20 mg PO Q12H 02/10/23 02/10/23 clindamycin phosphate 1 % lotion 1 applic topical BID 02/10/23 02/10/23 clopidogrel 75 mg tablet 75 mg PO DAILY 02/10/23 02/10/23 desvenlafaxine succinate 100 mg 100 mg PO Q24H 02/10/23 02/10/23 tablet,extended release 24 hr diclofenac sodium 75 mg 75 mg PO Q12H 02/10/23 02/10/23 tablet,delayed release famotidine 40 mg tablet 40 mg PO DAILY 02/10/23 02/10/23 furosemide 40 mg tablet 40 mg PO DAILY 02/10/23 02/10/23 linaclotide 290 mcg capsule 290 mcg PO DAILY PRN constipation 02/10/23 02/10/23 (Linzess) losartan 25 mg tablet 25 mg PO BID 02/10/23 02/10/23 oxcarbazepine 300 mg tablet 300 mg PO DAILY 02/10/23 02/10/23 oxcarbazepine 600 mg tablet 600 mg PO BEDTIME 02/10/23 02/10/23 oxybutynin chloride 5 mg 5 mg PO DAILY 02/10/23 02/10/23 tablet,extended release 24 hr pantoprazole 40 mg tablet,delayed 40 mg PO DAILY 02/10/23 02/10/23 release potassium citrate 10 mEq (1,080 20 meq PO BID 02/10/23 02/10/23 mg) tablet,extended release pregabalin 150 mg capsule 150 mg PO Q8H 02/10/23 02/10/23 quetiapine 100 mg tablet 100 mg PO DAILY 02/10/23 02/10/23 rimegepant 75 mg disintegrating 75 mg PO DAILY PRN migraine 02/10/23 02/10/23 tablet (Nurtec ODT) headache Allergies Allergy/AdvReac Type Severity Reaction Status Date / Time Iodinated Contrast Media Allergy Unknown Verified 02/10/23 13:11 Review of Systems ROS Status of ROS 10 or more systems reviewed and unremarkable except as noted in history and below PFSH PFSH Social History Little interest or pleasure in doing things: not at all Feeling down, depressed, or hopeless: not at all Exam Narrative Exam Narrative: CONSTITUTIONAL: Well-appearing, answering questions and following commands appropriately SKIN: Was warm and dry. EYES: Sclerae white. EARS, NOSE, THROAT: Moist oral mucosa. RESPIRATORY: Nonlabored respirations CARDIOVASCULAR: Normal rate and regular rhythm. There is no S3, S4, murmur, rub. GASTROINTESTINAL: Abdomen is soft, nontender, nondistended. The suprapubic catheter is draining a minimal amount of yellow urine. No hematuria. The suprapubic catheter site is clean/dry/intact without overlying skin changes/erythema or purulent drainage. MUSCULOSKELETAL: No peripheral edema. NEUROLOGIC: Patient is awake and alert. Facies were symmetrical. Constitutional Vital Signs, click to edit/add: Last Vital Signs Temp 98.5 F 12/13/24 12:41 Pulse 88 12/13/24 12:41 Resp 18 12/13/24 12:41 BP 157/79 H 12/13/24 12:41 Pulse Ox 99 12/13/24 12:41 O2 Del Method Room Air 12/13/24 12:41 Course Vital Signs Vital signs: Vital Signs Temperature 98.5 F 12/13/24 12:41 Pulse Rate 88 12/13/24 12:41 Respiratory Rate 18 12/13/24 12:41 Blood Pressure 157/79 H 12/13/24 12:41 Pulse Oximetry 99 12/13/24 12:41 Oxygen Delivery Method Room Air 12/13/24 12:41 Temperature 98.5 F 12/13/24 12:41 Pulse Rate 88 12/13/24 12:41 Respiratory Rate 18 12/13/24 12:41 Blood Pressure 157/79 H 12/13/24 12:41 Pulse Oximetry 99 12/13/24 12:41 Oxygen Delivery Method Room Air 12/13/24 12:41 Medical Decision Making MDM Narrative Medical decision making narrative: Patient is a 49-year-old female presenting to the emergency department for evaluation of a clogged suprapubic catheter. Her vital signs are within normal limits. She is afebrile and hemodynamically stable. She is overall well-appearing and is otherwise asymptomatic. The suprapubic catheter was exchanged with an 18F Márquez without any complications. There was return of yellow urine and a UA was sent off for analysis. Urinalysis was suggestive of UTI. However, the patient denies any urinary symptoms and does not feel as though she has a UTI. She states that her urine always suggest UTI when she gets a UA. Using shared decision-making, we did not decide not to treat the possible infection. She exhibits no signs of sepsis or systemic symptoms. I did instruct her to return to the emergency department immediately should she develop symptoms of UTI including fevers, abdominal pain, dysuria, or cloudy urine. Patient understands and is agreeable to the plan. She was instructed to follow-up with her urologist for further care. FINAL IMPRESSION: #Acute encounter for dysfunctional suprapubic catheter DISPOSITION: Discharged home CONDITION: Good Lab Data Lab results reviewed: Yes I reviewed the patient's lab results Labs: Lab Results 12/13/24 Range/Units 13:18 Urine Color Lt. yellow (YELLOW) Urine Clarity Cloudy A (CLEAR) Urine pH 6.0 (5.0-9.0) Ur Specific Marshall 1.025 (1.005-1.025) Urine Protein 30 A (NEG/TRACE) mg/dL Urine Glucose (UA) 100 A (NEGATIVE) mg/dL Urine Ketones Negative (NEGATIVE) mg/dL Urine Occult Blood Moderate A (NEGATIVE) Urine Nitrite Positive A (NEGATIVE) Urine Bilirubin Negative (NEGATIVE) Urine Urobilinogen 0.2 (0.2-1.0) EU/dL Ur Leukocyte Esterase Moderate A (NEGATIVE) Urine RBC 2-5 A (0-2) #/HPF Urine WBC 20-50 A (NONE SEEN) #/HPF Ur Squamous Epith Cells Rare (NONE/RARE) #/LPF Urine Crystals None seen (None Seen) #/HPF Urine Bacteria Moderate A (NONE SEEN) #/HPF Urine Casts None seen (NONE SEEN) #/LPF Urine Mucus None seen (NONE SEEN) Ur Culture Indicated? Yes-[facility] Discharge Plan Discharge Chief Complaint: Urogenital-Female Clinical Impression: Blocked suprapubic catheter Patient Disposition: Home, Self-Care Time of Disposition Decision: 13:47 Condition: Good Mode of Transportation: Private Vehicle Prescriptions / Home Meds: No Action allopurinol 100 mg tablet 100 mg PO DAILY baclofen 20 mg tablet 20 mg PO Q12H clindamycin phosphate 1 % lotion 1 applic TOPICAL BID clopidogrel 75 mg tablet 75 mg PO DAILY desvenlafaxine succinate 100 mg tablet extended release 24 hr 100 mg PO Q24H diclofenac sodium 75 mg tablet,delayed release (DR/EC) 75 mg PO Q12H famotidine 40 mg tablet 40 mg PO DAILY furosemide 40 mg tablet 40 mg PO DAILY losartan 25 mg tablet 25 mg PO BID oxcarbazepine 300 mg tablet 300 mg PO DAILY oxcarbazepine 600 mg tablet 600 mg PO BEDTIME oxybutynin chloride 5 mg tablet extended release 24hr 5 mg PO DAILY potassium citrate 10 mEq (1,080 mg) tablet extended release 20 meq PO BID pregabalin 150 mg capsule 150 mg PO Q8H quetiapine 100 mg tablet 100 mg PO DAILY Nurtec ODT 75 mg tablet,disintegrating 75 mg PO DAILY PRN (Reason: migraine headache) pantoprazole 40 mg tablet,delayed release (DR/EC) 40 mg PO DAILY Linzess 290 mcg capsule 290 mcg PO DAILY PRN (Reason: constipation) Print Language: Japanese Instructions: Márquez Catheter Placement and Care (ED) Referrals: Hunter Almanza MD [Primary Care Provider, Family Practice] - 1 week Discharge Date/Time: 12/13/24 13:55
[2024-12-13 13:25] LABS: Glucose Urine UA 100 mg/dL (NEGATIVE)
[2024-12-13 13:46] LABS: Cast Seen? NONE SEEN #/LPF (NONE SEEN); Crystals Seen? None Seen #/HPF (None Seen); Urine Culture Indicated YES-FRMC
== END 2024-12-13 13:55 | disposition home or self-care (01) ==
PROVIDERS: Emergency Provider Student in an Organized Health Care Education/Training Program; PCP Family Medicine
DX: T83.098A Other mechanical complication of other urinary catheter, initial encounter (principal); R82.998 Other abnormal findings in urine
CPT/HCPCS: 81001; 87086; 99284